=== PATIENT | female | born 1950 | race Caucasian/White ===

== ENCOUNTER → 2018-05-17 14:03 | Outpatient (CLI) | payer MEDICARE, BC, SELFPAY | PROVIDERS: Family Provider Internal Medicine; PCP Internal Medicine; Visit Provider Internal Medicine | DX: Z78.0 Asymptomatic menopausal state (principal); M85.80 Other specified disorders of bone density and structure, unspecified site; Z12.31 Encounter for screening mammogram for malignant neoplasm of breast | CPT/HCPCS: 77063; 77067; 77080 ==

== ENCOUNTER 2018-08-30 10:00 | Outpatient (RCR) | payer MEDICARE, BC, SELFPAY ==
--- OUTSIDE RECORDS SUMMARY | 2018-11-30 15:37 | XMS RPT_ITS | Continuity of Care Document ---
:1950 Author Organization [facility] Address [address] [place] [address] Phone Care Team Providers Name Role Phone Viji CHANDRA, Justyna Gutierres Unavailable Carlos Woodruff Unavailable Paras CHANDRA, Lesa Gutierres Unavailable Cleartree Unavailable Chacha Serna Unavailable Dr. Chato Jean Baptiste Unavailable HEAVEN Tran Unavailable Unavailable Unavailable Unavailable Problems Name Dates Details Abnormal laboratory test (R89.9, 796.4) Status: Active Abortions/Miscarriages Comments: 2 Status: Active Afib (I48.91, 427.31) Comments: reviewed with patient specialist's note now on Eliquis because trouble with warfarin regulation. had flare 7-13. medically treated. not cardio vert with history of CVA after cardiac ablation. still in afib but stable. 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 soto follow. WBS. thyrogen stimulated scan and tbs level 1-17.see once yearlyRAI 3-15, 4-14 thyrogen scan still residual, 1-16 stable Status: Active Carotid stenosis (I65.29, 433.10) Comments: 1-12 <50%, 12-13, 12-16 Status: Active Congestive heart failure (I50.9, 428.0) Comments: stable now told to weigh daily. knows if gain 4 pounds in a week call. Status: Active Controlled diabetes mellitus type II without complication (E11.9, 250.00) Comments: hga1c good.opthal exam - good see cardio for ekg Status: Active Deliveries (Parity) Comments: 3 Status: Active Depression (F32.9, 311) Comments: start with stroke, had issue with son on herion doing well. good on celexa with weight and arthymia backed to 20 mg and did well so will try 10 mg Status: Active Encounter for general adult medical examination with abnormal findings (Z00.01, V70.0) Comments: 08-09-16 [facility] 07[facility] Physical: colonoscopy 06-26,mammo BD 05-29, pap , immunizations are up to date, last eye exam was with Dr. Serna and included glaucoma screening, memory test= will get back to [facility] Status: Active GERD (gastroesophageal reflux disease) (K21.9, 530.81) Status: Active Glenohumeral arthritis, right (M19.011, 715.91) Comments: PTsome help. not as bad as was. recomend continue home exrecises at least 3 times a week but not do. Status: Active Hip pain, bilateral (M25.551, 719.45) Comments: really think related to back. had lumbar and hip xrays, bone scan and MRI of hip. DDD noted in back. not seem like PMR not on statins. see recommendations. Status: Active Hypercholesterolemia (E78.00, 272.0) Comments: reveiwed with patient recent tests and LDL 120 but breakdwon good. fax to [facility]. talka bout zetia at thispoint hold offstatin couple ones and pain in knees Status: Active Hypertension (I10, 401.9) Comments: stable Status: Active Hypocalcemia (E83.51, 275.41) Comments: postop and Dr. Soto is keeping her on the calcitroil Status: Active Hypothyroidism (E03.9, 244.9) Comments: Dr. 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 not good at direction not get lost. forget what go into room for. can follow recipes okay. sometimes forget conversations had day before. forgot how to get to religion ? [facility] Status: Active Nonsmoker (Z78.9, V49.89) Status: Active Obesity (E66.9, 278.00) Comments: now gain 10 pounds over last year. so told must get back off right away. she is eating bigger portions and snacking. she will cut out snacks and lower portions. cut out the sweets and carb snacks. get back to silver sneakers. will do weight check in 6 weeks Status: Active Obstructive sleep apnea, adult (G47.33, 327.23) Comments: in bipap...high titration. Status: Active Osteoarthritis, generalized (M15.9, 715.00) Comments: had in past right now tyelnol helping and told to water exercises. follow if worsen then xryas. Status: Active Osteoporosis, senile (M81.0, 733.01) Comments: 5-16 BD in hips at femoral neck osteoporosis. worsening. recheck 10-18 worsen left hip. been on fosamax not working.. was doing prolia. now insurance wont cover. had reclast. right now hips soem worse in left. all calcium and vit d are good and she wokrs with Dr. soto. Status: Active Other intervertebral disc degeneration, lumbar region (M51.36, 722.52) Comments: now having pain xray 8-17 DDD. did water therapy did over summer think help when in water. but finish and not continue home exercises. no nsaids right now tylenol arthritis prn. take tyelnol 2 tablets twice a day. osteobiflex otc. 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 estes stress test and cath 07-25. 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 Status: Active Medications Name Dates Details Calcitriol 0.25 MCG Oral Capsule 1 (one) Capsule bid for 0 days Quantity: 30 {Capsule} Refills: 0 Ordered:31-Jul-2018 Justyna Hallman MD, MD, Dana M Start : 31-Jul-2018 Active Comments:Dr. soto Calcium 600 600 MG Oral Tablet 2 (two) Tablet daily for 0 days Quantity: 90 {Tablet} Refills: 0 Ordered:19-Mar-2018 Justyna Hallman MD, MD, Dana M Start : 19-Mar-2018 Active CeleXA 10 MG Oral Tablet 1 tab Tablet qd for 0 days Quantity: 90 {Tablet} Refills: 3 Ordered:19-Mar-2018 Justyna Hallman MD, MD, Dana M Start : 19-Mar-2018 Active CENTRUM SILVER (Oral Tablet) 1 Tablet bid for 0 days Quantity: 60 {Tablet} Refills: 0 Ordered:17-Jun-2013 Justyna Hallman MD, MD, Dana M Start : 17-Jun-2013 Active Eliquis 5 MG Oral Tablet 1 (one) Tablet bid for 0 days Quantity: 60 {Tablet} Refills: 0 Ordered:31-Jul-2018 Justyna Hallman MD, MD, Dana M Start : 31-Jul-2018 Active Ergocalciferol 12350 UNIT Oral Capsule 1 Capsule q weekly for 0 days Quantity: 12 {Capsule} Refills: 3 Ordered:19-Mar-2018 Justyna Hallman MD, MD, Dana M Start : 19-Mar-2018 Active FERROUS SULFATE, 325 (65 Fe)MG (Oral Tablet Delayed Release) 1 qd (325 (65 Fe) MG) Active FLUTICASONE PROPIONATE, 50MCG/ACT (Nasal Suspension) 1 spray Suspension each nostril daily for 0 days Quantity: 3 {Box} Refills: 3 Ordered:25-Dec-2015 Cullen Batres MD Start : 25-Dec-2015 Active Lasix 20 MG Oral Tablet 1 (one) Tablet daily for 0 days Quantity: 90 {Tablet} Refills: 3 Ordered:14-Aug-2017 Justyna Hallman MD, MD, Dana M Start : 14-Aug-2017 Active Levothyroxine Sodium 125 MCG Oral Tablet 1 (one) Tablet qd for 0 days Quantity: 30 {Tablet} Refills: 0 Ordered:02-Jan-2017 Justyna Hallman MD, MD, Dana M Start : 02-Jan-2017 Active Lisinopril 20 MG Oral Tablet 1 Tablet qd for 0 days Quantity: 90 {Tablet} Refills: 3 Ordered:25-Dec-2017 Justyna Hallman MD, MD, Dana M Start : 25-Dec-2017 Active METOPROLOL SUCCINATE ER, 50MG (Oral Tablet Extended Release 24 Hour) 1 qd (50 MG) Active ONETOUCH TEST (In Vitro Strip) 1 Strip tid as directed for 0 days Quantity: 100 {Strip} Refills: 6 Ordered:18-Sep-2013 Justyna Hallman MD, MD, Dana M Start : 17-Jun-2013 Active Comments:DX: 250.00, patient uses ONETOUCH ULTRA RECLAST, 5MG/100ML (Intravenous Solution) uad Solution 5mg IV q yearly for 0 days Quantity: 100 {Milliliter} Refills: 0 Ordered:04-Jan-2016 Justyna Hallman MD, MD, Dana M Start : 04-Jan-2016 Active Zinc Aspartate 40 MG Oral Tablet 1 (one) Tablet Tablet in am for 0 days Quantity: 30 {Tablet} Refills: 5 Ordered:08-May-2017 HEAVEN Tarn Start : 03-Jan-2017 Active ACTION STRIPS (Miscellaneous) Misc as directed for 0 days Quantity: 25 {Misc} Refills: 6 Ordered:13-Mar-2007 Cari Ott Start : 13-Mar-2007 End : 29-Sep-2008 Inactive Comments:or equivalent strips for meter get ALPRAZOLAM, 0.5MG (Oral Tablet) 1 (one) Tablet Tablet q 6 hours prn for 0 days Quantity: 30 {Tablet} Refills: 0 Ordered:04-Jan-2016 HEAVEN Tran Start : 23-Oct-2014 End : 04-Jan-2016 Inactive AMBIEN, 10MG (Oral Tablet) Tablet QHS / HS prn for 0 days Quantity: 30 {Tablet} Refills: 1 Ordered:14-Oct-2009 HEAVEN Tran Start : 30-Jun-2008 Inactive ASPIRIN LOW DOSE, 81MG (Oral Tablet) 1 qd for 0 days Refills: 0 Ordered:25-Oct-2010 Estela Piedra LPN End : 25-Oct-2010 Inactive ATELVIA, 35MG (Oral Tablet Delayed Release) [address] q week for 0 days Quantity: 12 {Tablet_DR} Refills: 3 Ordered:14-Nov-2011 Yvonne Webb LPN Start : 12-Oct-2011 End : 14-Nov-2011 Inactive Comments:with water after breakfast, remain upright for 30min ATIVAN, 0.5MG (Oral Tablet) 1 Tablet every 6hours prn for 0 days Quantity: 20 {Tablet} Refills: 0 Ordered:19-Dec-2013 HEAVEN Tran Start : 10-Jul-2012 End : 19-Dec-2013 Inactive Comments:twenty BACTRIM DS, 800-160MG (Oral Tablet) 1 (one) Tablet bid for 7 days Quantity: 14 {Tablet} Refills: 0 Ordered:04-Jul-2014 Jailyn Connor CNP Start : 04-Jul-2014 End : 11-Jul-2014 Inactive BENADRYL ALLERGY, 25MG (Oral Capsule) 1 Capsule qhs for 30 days Quantity: 30 {Capsule} Refills: 3 Ordered:23-Oct-2014 HEAVEN Tran Start : 14-Nov-2011 End : 23-Oct-2014 Inactive BIAXIN XL PAC, 500MG (Oral Tablet Extended Release 24 Hour) 1 Tablet ER 24HR 2 a day for 0 days Quantity: 2 {Package(s)} Refills: 0 Ordered:29-Nov-2010 Estela Piedra LPN Start : 25-Oct-2010 End : 29-Nov-2010 Inactive BIAXIN XL, 500MG (Oral Tablet Extended Release 24 Hour) 2 (two) Tablet ER 24HR daily for 0 days Quantity: 20 {Tablet} Refills: 0 Ordered:17-Apr-2015 HEAVEN Tran Start : 22-Jan-2015 End : 17-Apr-2015 Inactive BIAXIN, 500MG (Oral Tablet) 2 (two) Tablet daily for 14 days Quantity: 28 {Tablet} Refills: 0 Ordered:12-Oct-2011 Ellajacobo OLIVAJailyn E Start : 12-Oct-2011 End : 26-Oct-2011 Inactive CLARITIN, 10MG (Oral Tablet) 1 qd for 0 days Refills: 0 Ordered:01-Dec-2008 Cari Ott End : 27-Mar-2008 Inactive COLACE, 100MG (Oral Capsule) 1 qd for 0 days Refills: 0 Ordered:04-Jan-2016 HEAVEN Tran End : 04-Jan-2016 Inactive COUMADIN, 2MG (Oral Tablet) 1 qd for 0 days Refills: 0 Ordered:19-Dec-2011 HEAVEN Tran End : 19-Dec-2011 Inactive COUMADIN, 5MG (Oral Tablet) UAD qd for 0 days Refills: 0 Ordered:19-Dec-2011 HEAVEN Tran End : 19-Dec-2011 Inactive DARVOCET-N 100, 100-650MG (Oral Tablet) 1-2 Tablet Q 6 HR PRN for 0 days Quantity: 60 {Tablet} Refills: 0 Ordered:17-Dec-2009 Salome Pike LPN Start : 16-Nov-2009 Inactive FLEXERIL, 10MG (Oral Tablet) 1 Tablet tid prn for 0 days Quantity: 20 {Tablet} Refills: 0 Ordered:13-Nov-2009 Salome Pike LPN Start : 14-Oct-2009 Inactive GLUCOMETER ELITE CLASSIC (Kit) Kit for 0 days Refills: 0 Ordered:13-Mar-2007 Cari Ott Start : 13-Mar-2007 End : 29-Sep-2008 Inactive Comments:or any equivalent meter Hydrocodone-Acetaminophen 5-325 MG Oral Tablet 1 (one) Tablet Tablet every 6hours prn severe neck pain for 0 days Quantity: 20 {Tablet} Refills: 0 Ordered:19-Mar-2018 HEAVEN Tran Start : 09-Feb-2016 End : 19-Mar-2018 Inactive Comments:twenty HYDROCODONE-ACETAMINOPHEN, 5-300MG (Oral Tablet) 1 (one) Tablet Tablet q 8 hours prn for 0 days Quantity: 30 {Tablet} Refills: 0 Ordered:04-Jan-2016 HEAVEN Tran Start : 23-Oct-2014 End : 04-Jan-2016 Inactive HYDRODIURIL, 100MG (PO Tab) 1 QD for 0 days Refills: 0 Ordered:01-Dec-2008 Cari Ott End : 30-Jun-2008 Inactive K-DUR, 20MEQ (Oral Tablet Extended Release) 1 Tablet ER QD for 0 days Quantity: 90 {Tablet_ER} Refills: 3 Ordered:14-Oct-2009 HEAVEN Tran Start : 12-Jan-2009 Inactive LAC-HYDRIN, 12% (External Lotion) uad Lotion to affected area(s) prn for 0 days Quantity: 1 {Tube} Refills: 3 Ordered:23-Oct-2014 HEAVEN Tran Start : 19-Dec-2013 End : 23-Oct-2014 Inactive Comments:140 gram tube LASIX, 20MG (Oral Tablet) 1 (one) Tablet BID for 0 days Quantity: 60 {Tablet} Refills: 6 Ordered:14-Oct-2009 HEAVEN Tran Start : 03-Aug-2009 Inactive LEVAQUIN, 500MG (Oral Tablet) 1 Tablet QD for 14 days Quantity: 14 {Tablet} Refills: 0 Ordered:08-Apr-2011 Viji CHANDRA, Justyna Oconnor MD, Justyna Gutierres Start : 08-Apr-2011 End : 22-Apr-2011 Inactive LIPITOR, 80MG (Oral Tablet) Tablet QD for 0 days Quantity: 90 {Tablet} Refills: 3 Ordered:30-Dec-2008 HEAVEN Tran Start : 30-Dec-2008 Inactive Comments:failed simvastatin muscle aches LORTAB, 7.5-500MG/15ML (Oral Elixir) 15 ml q 4 hrs prn for 0 days Refills: 0 Ordered:17-Dec-2009 Salome Pike LPNInactive MEDROL (ANGIE), 4MG (Oral Tablet) 1 (one) Tablet TAD for 0 days Quantity: 1 {Package} Refills: 0 Ordered:01-Aug-2014 HEAVEN Tran Start : 04-Jul-2014 End : 01-Aug-2014 Inactive Comments:with food METOPROLOL TARTRATE, 25MG (Oral Tablet) 1/2 Tablet bid for 0 days Refills: 0 Ordered:03-Apr-2009 HEAVEN Tran Start : 03-Apr-2009 Inactive Comments:made pulse too low Dr. Mcnair d/c'd NASONEX, 50MCG/ACT (Nasal Suspension) 1spray each nostril Suspension BID for 0 days Quantity: 3 {Suspension} Refills: 3 Ordered:03-Aug-2009 HEAVEN Tran Start : 03-Aug-2009 Inactive NIACIN ER, 500MG (Oral Capsule Extended Release) 1 Capsule ER 2 a day for 0 days Quantity: 180 {Capsule_ER} Refills: 3 Ordered:25-Dec-2012 HEAVEN Tran Start : 22-Nov-2012 End : 25-Dec-2012 Inactive NIACIN ER, 500MG (Oral Capsule Extended Release) 1 Capsule ER 2 a day for 0 days Quantity: 180 {Capsule_ER} Refills: 3 Ordered:25-Dec-2012 HEAVEN Tran Start : 22-Nov-2012 End : 25-Dec-2012 Inactive Nitrofurantoin Monohyd Macro 100 MG Oral Capsule 1 (one) Capsule bid for 0 days Quantity: 14 {Capsule} Refills: 0 Ordered:23-Nov-2017 HEAVEN Tran Start : 21-Nov-2017 End : 23-Nov-2017 Inactive PATANOL, 0.1% (Ophthalmic Solution) 1 Solution bid each eye one drop for 0 days Quantity: 1 {Solution} Refills: 0 Ordered:04-Jan-2016 HEAVEN Tran Start : 22-Nov-2012 End : 04-Jan-2016 Inactive PEPCID, 20MG (Oral Tablet) Tablet BID for 0 days Quantity: 60 {Tablet} Refills: 0 Ordered:14-Oct-2009 HEAVEN Tran Start : 26-Aug-2009 Inactive PRAVASTATIN SODIUM, 40MG (Oral Tablet) 1 Tablet daily for 0 days Quantity: 30 {Tablet} Refills: 5 Ordered:14-Feb-2012 HEAVEN Tran Start : 14-Feb-2012 End : 14-Feb-2012 Inactive Comments:aches and pains PREDNISONE, 20MG (Oral Tablet) 1 Tablet uad for 0 days Refills: 0 Ordered:28-Jul-2011 HEAVEN Tran Start : 08-Apr-2011 End : 28-Jul-2011 Inactive Comments:2 a d for 5 d, 1 a d for 5d, 1/2 a d for 5 d PRILOSEC OTC, 20MG (Oral Tablet Delayed Release) [address] qd for 0 days Quantity: 30 {Tablet_DR} Refills: 6 Ordered:14-Oct-2009 HEAVEN Tran Start : 27-Apr-2009 Inactive PROLIA, 60MG/ML (Subcutaneous Solution) 1 (one) Solution Solution q 6 months SC for 0 days Quantity: 2 {Pre-filled_Pen_Syringe} Refills: 0 Ordered:04-Jan-2016 HEAVEN Tran Start : 17-Apr-2015 End : 04-Jan-2016 Inactive PROVENTIL HFA, 108 (90 Base)MCG/ACT (Inhalation Aerosol Solution) 2 (two) Puff(s) tid for 0 days Quantity: 1 {Aerosol_Soln} Refills: 0 Ordered:14-Nov-2011 Long TOXICOLOGIST, Yvonne L Start : 08-Apr-2011 End : 14-Nov-2011 Inactive RHINOCORT AQUA, 32MCG/ACT (Nasal Suspension) 1 spray each nostril Suspension QD for 0 days Quantity: 3 {Suspension} Refills: 3 Ordered:03-Apr-2009 Estela Piedra LPN Start : 03-Apr-2009 End : 29-Jul-2009 Inactive Skelaxin 800 MG Oral Tablet 1 (one) Tablet Tablet tid prn for 0 days Quantity: 20 {Tablet} Refills: 0 Ordered:02-Jan-2017 HEAVEN Tran Start : 09-Feb-2016 End : 02-Jan-2017 Inactive TOPICORT LP, 0.05% (External Cream) Cream bid for 0 days Quantity: 1 {Cream} Refills: 1 Ordered:20-Dec-2007 HEAVEN Tran Start : 20-Dec-2007 End : 03-Apr-2009 Inactive TYLENOL, 325MG (Oral Tablet) 1 (one) Tablet Tablet q6hrs prn for 0 days Quantity: 1 {Tablet} Refills: 0 Ordered:01-Aug-2014 HEAVEN Tran Start : 30-Jun-2014 End : 01-Aug-2014 Inactive VICODIN, 5-500MG (Oral Tablet) 1-2 Tablet q6hrs for 0 days Quantity: 30 {Tablet} Refills: 0 Ordered:14-Feb-2012 HEAVEN Tran Start : 09-Jan-2012 End : 14-Feb-2012 Inactive VICODIN, 5-500MG (Oral Tablet) 1 (one) Tablet QID/PRN for 0 days Quantity: 30 {Tablet} Refills: 0 Ordered:16-Aug-2012 HEAVEN Tran Start : 17-May-2012 End : 16-Aug-2012 Inactive Xarelto 20 MG Oral Tablet 1 Tablet qd for 0 days Quantity: 30 {Tablet} Refills: 0 Ordered:23-Nov-2017 HEAVEN Tran Start : 19-Dec-2011 End : 23-Nov-2017 Inactive Comments:Dr. Tabby ESCALERA, 10MG (Oral Tablet) 1 (one) Tablet Tablet qd for 0 days Quantity: 30 {Tablet} Refills: 5 Ordered:04-Jan-2016 HEAVEN Tran Start : 28-Oct-2014 End : 04-Jan-2016 Inactive ALENDRONATE SODIUM, 35MG (Oral Tablet) 1 (one) Tablet weekly for 90 days Quantity: 12 {Tablet} Refills: 3 Ordered:25-Mar-2014 Viji CHANDRA, Justyna Oconnor MD, Justyna Gutierres Start : 25-Mar-2014 End : 25-Mar-2014 Discontinued BYETTA 10 MCG PEN, 10MCG/0.04ML (Subcutaneous Solution) 1 (one) Solution BID for 0 days Quantity: 60 {Solution} Refills: 4 Ordered:13-Mar-2007 Cari Ott Start : 13-Mar-2007 End : 20-Dec-2007 Discontinued BYETTA 5 MCG PEN, 5MCG/0.02ML (Subcutaneous Solution) Solution BID for 0 days Refills: 0 Ordered:01-Dec-2008 Cari Ott Start : 01-Mar-2007 End : 13-Mar-2007 Discontinued COUMADIN, 1MG (Oral Tablet) uad for 0 days Refills: 0 Ordered:01-Dec-2008 Cari Ott End : 20-Dec-2007 Discontinued CRESTOR, 40MG (Oral Tablet) 1 Tablet qhs / HS for 0 days Refills: 0 Ordered:01-Dec-2008 Cari Ott Start : 06-Sep-2006 End : 19-Jun-2007 Discontinued FOSAMAX, 35MG (Oral Tablet) 1 Tablet q week for 0 days Quantity: 12 {Tablet} Refills: 3 Ordered:10-Oct-2013 HEAVEN Tran Start : 10-Oct-2013 End : 10-Oct-2013 Discontinued Comments:This order discontinued per [facility]. FOSAMAX, 35MG (Oral Tablet) 1 q week (35 MG) Start : 10-Oct-2013 End : 10-Oct-2013 Discontinued Comments:This order discontinued per [facility]. HYDROCHLOROTHIAZIDE, 25MG (Oral Tablet) 1 Tablet QD for 0 days Refills: 0 Ordered:03-Aug-2009 Justyna Hallman MD, MD, Dana M Start : 03-Aug-2009 End : 03-Aug-2009 Discontinued INTRAVENOUS INFUSION SET VENTD (Miscellaneous) 1 for 0 days Refills: 0 Ordered:25-Aug-2006 Cari Ott Start : 25-Aug-2006 End : 20-Dec-2007 Discontinued K-DUR, 20MEQ (Oral Tablet Extended Release) Tablet ER QD with lasix for 0 days Quantity: 30 {Tablet_ER} Refills: 3 Ordered:20-Sep-2007 Cari Ott Start : 20-Sep-2007 End : 20-Dec-2007 Discontinued LASIX, 40MG (Oral Tablet) Tablet QD for 0 days Quantity: 30 {Tablet} Refills: 0 Ordered:20-Sep-2007 Cari Ott Start : 20-Sep-2007 End : 20-Dec-2007 Discontinued Comments:in place of hydroduirel LOPRESSOR HCT, 50-25MG (Oral Tablet) for 0 days Refills: 0 Ordered:03-Apr-2009 Justyna Hallman MD, MD, Dana M End : 20-Dec-2007 Discontinued MULTIVITAMIN (Oral Liquid) for 0 days Refills: 0 Ordered:01-Dec-2008 Cari Ott End : 20-Dec-2007 Discontinued NEXIUM, 40MG (Oral Capsule Delayed Release) [address] Daily for 0 days Refills: 0 Ordered:26-Aug-2009 Justyna Hallman MD, MD, Dana M Start : 26-Aug-2009 End : 26-Aug-2009 Discontinued NIASPAN, 500MG (Oral Tablet Extended Release) 2 (two) Tablet ER qhs for 0 days Quantity: 180 {Tablet} Refills: 3 Ordered:01-Aug-2014 Viji CHANDRA, Justyna Bhardwaj MD Start : 01-Aug-2014 End : 01-Aug-2014 Discontinued PREVACID, 30MG (Oral Capsule Delayed Release) [address] qd for 0 days Quantity: 90 {Capsule_DR} Refills: 3 Ordered:06-Sep-2006 Tru Cari Start : 06-Sep-2006 End : 13-Sep-2006 Discontinued ROCEPHIN, 2GM (Intravenous Solution Reconstituted) For Solution for 0 days Refills: 0 Ordered:25-Aug-2006 Tru Cari Start : 25-Aug-2006 End : 19-Jun-2007 Discontinued Comments:lot # [id number] Exp [id number] SIMVASTATIN, 80MG (Oral Tablet) Tablet QD for 0 days Refills: 0 Ordered:30-Dec-2008 Justyna Hallman MD, MD, Dana M Start : 29-Sep-2008 End : 30-Dec-2008 Discontinued VYTORIN, 10-40MG (Oral Tablet) 1 (one) Tablet QD for 0 days Quantity: 90 {Tablet} Refills: 3 Ordered:29-Sep-2008 Tru Cari Start : 29-Sep-2008 End : 29-Sep-2008 Discontinued ZYRTEC, 10MG (Oral Tablet) 1 Tablet qd for 0 days Quantity: 90 {Tablet} Refills: 3 Ordered:06-Sep-2006 Cari Ott Start : 06-Sep-2006 End : 27-Nov-2006 Discontinued Allergies and Adverse Reactions Name Dates Details Cipro (Allergy) Status: Active Comments: cipro Keflex *CEPHALOSPORINS* (Allergy) Status: Active Lipitor (Allergy) Status: Active Comments: muscle aches Metal (Allergy) Status: Active NexIUM *ULCER DRUGS* (Allergy) Status: Active Seafood (Allergy) Status: Active Wool (Allergy) Status: Active Past Medical History Name Dates Details abnl mammo and ultrasound- send to [facility] for surgical opinion- pt agreeable Comments: reveiwed biopsy and neg Status: Inactive as of 22-Aug-2006 Abnormal bone xray (R93.7, 793.7) Status: Resolved as of 31-Jul-2018 Abnormal radionuclide bone scan (R94.8, 794.9) Status: Resolved as of 31-Jul-2018 Abnormal TSH (R79.89, 794.5) Comments: stable had seen byrd. run 0.26-.30 so will follow. not had recehecked since 09-24 and now signs and symptoms Status: Inactive as of 04-Jan-2016 Acute exacerbation of COPD with asthma (J44.1, 493.22) Status: Resolved as of 30-Dec-2008 Acute pansinusitis (J01.40, 461.8) Status: Inactive as of 04-Jan-2016 Acute sinusitis, unspecified (J01.90, 461.9) Status: Inactive as of 22-Nov-2012 Allergic rhinitis (J30.9, 477.9) Comments: having signs and symptoms now. on zyretic. not taking nasal spray regularly Status: Inactive as of 14-Oct-2009 Arthritis (M19.90, 716.90) Status: Inactive as of 19-Dec-2013 Backache (M54.9, 724.5) Status: Inactive as of 22-Nov-2012 BMI 34.0-34.9,adult (Z68.34, V85.34) Status: Resolved as of 19-Mar-2018 BMI 35.0-35.9,adult (Z68.35, V85.35) Comments: 35.4 Status: Resolved as of 19-Mar-2018 BMI 36.0-36.9,adult (Z68.36, V85.36) Comments: 36.45 Status: Resolved as of 19-Mar-2018 BMI 37.0-37.9, adult (Z68.37, V85.37) Status: Resolved as of 31-Jul-2018 Breast cancer screening (Z12.39, V76.10) Status: Inactive as of 04-Jan-2016 Bronchitis (J40, 490) Comments: is getting better will finish atb and steriod. doing inhaler at home Status: Inactive as of 22-Nov-2012 Bronchitis, acute (J20.9, 466.0) Status: Inactive as of 22-Nov-2012 Cellulitis (L03.90, 682.9) Comments: To Endoscopy for daily IV vanc x 4 days with some improvementfacial swelling after ear infection Status: Inactive as of 01-Aug-2014 Cellulitis (L03.90, 682.9) Comments: continue ATB Status: Resolved as of 27-Dec-2006 Cerebrovascular disease, unspecified (I67.9, 437.9) Status: Inactive as of 15-Mar-2013 Cough (R05, 786.2) Status: Inactive as of 22-Nov-2012 Elevated LFTs (R94.5, 790.6) Status: Inactive as of 17-Jun-2013 Encounter for gynecological examination without abnormal finding (Z01.419, V72.31) Comments: 06-26 colonscopy Status: Resolved as of 19-Mar-2018 Encounter for hepatitis C virus screening test for high risk patient (Z11.59, V73.89) Status: Resolved as of 31-Jul-2018 Eustachian tube dysfunction (H69.80, 381.81) Status: Inactive as of 16-Aug-2012 Face pain (R51, 784.0) Status: Inactive as of 01-Aug-2014 Fatigue (R53.83, 780.79) Status: Inactive as of 09-Aug-2016 Fever (R50.9, 780.60) Status: Inactive as of 01-Aug-2014 Glucose intolerance (no malabsorption) (E74.39, 271.3) Status: Inactive as of 14-Oct-2009 Headache (R51, 784.0) Status: Inactive as of 16-Aug-2012 Heart disease, unspecified (I51.9, 429.9) Status: Inactive as of 22-Nov-2012 Hypercalcemia (E83.52, 275.42) Comments: good now pth normal vit d good Status: Inactive as of 16-Aug-2012 Hypokalemia (E87.6, 276.8) Comments: add k recheck 2 weeks Status: Inactive as of 14-Oct-2009 Leukopenia (Renamed from Decreased leukocytes) (D72.819, 288.50) Status: Inactive as of 19-Dec-2013 Low back pain (M54.5, 724.2) Status: Resolved as of 14-Aug-2017 Morbid obesity (E66.01, 278.01) Comments: talk about get right back on diet. eating out more Status: Inactive as of 16-Aug-2012 Neck pain (M54.2, 723.1) Comments: xray show C%-6 narrow. had PT help and if worsen then mri muscle relaxant help the straighten spasm. exercises given Status: Inactive as of 09-Aug-2016 Need for prophylactic vaccination and inoculation against influenza (Renamed from Need for immunization against influenza) (Z23, V04.81) Status: Resolved as of 14-Aug-2017 NEED FOR PROPHYLACTIC VACCINATION AND INOCULATION AGAINST INFLUENZA (V04.81) (Renamed from Need for prophylactic vaccination and inoculation against influenza) (Z23, V04.81) Status: Inactive as of 02-Jan-2017 Need for Tdap vaccination (Renamed from Need for dtwwbjhbwb-cjsivuu-cpipcnlgl (Tdap) vaccine, adult/adolescent) (Z23, V06.1) Status: Inactive as of 09-Aug-2016 Need for vaccination against Streptococcus pneumoniae (Z23, V03.82) Status: Inactive as of 04-Jan-2016 Osteopenia (M85.80, 733.90) Comments: osteopenia had bone density on 09-20-11 compared to 05-20, loss of hip 16.1%. it would not cover atelvia so doing fosamax Status: Inactive as of 25-Mar-2014 Osteoporosis (M81.0, 733.00) Comments: reveiwed with patient recent tests and she has litle lisset but about same prolia not covered. continue reclast. calciu with vit d and walking Status: Resolved as of 03-Jan-2017 Other atopic dermatitis and related conditions (L20.89, 691.8) Status: Resolved as of 14-Oct-2009 Pain in limb (M79.609, 729.5) Comments: rt leg neg DVT, resolved after stopping pravastatin.. will retry pravastatin. cpk good Status: Inactive as of 16-Aug-2012 Paresthesia (R20.2, 782.0) Comments: last seconds in left hand most ? from old stroke ? cts not bad enough want ncs if worsen then wlldo consider wrist splint Status: Inactive as of 09-Feb-2016 Pneumococcal vaccination given (Z23, V06.6) Status: Resolved as of 19-Mar-2018 Postmenopausal (Renamed from Postmenopausal status) (Z78.0, V49.81) Status: Resolved as of 31-Jul-2018 Pre-operative examination (Z01.818, V72.84) Comments: pt at moderate moderate risk talk with pt about. but risk of doing nothing worse with her extreme obesity Status: Inactive as of 14-Oct-2009 pulse ox in office 96% Status: Inactive as of 14-Oct-2009 Rash (R21, 782.1) Comments: now allergic. stop nexium add pepcidj wait on prednsione if can Status: Inactive as of 14-Oct-2009 Right shoulder pain (M25.511, 719.41) Comments: think rotator cuff and in trapezius Status: Inactive as of 09-Aug-2016 Screening mammogram, encounter for (Z12.31, V76.12) Status: Resolved as of 19-Mar-2018 Sinusitis, chronic (J32.9, 473.9) Status: Inactive as of 19-Dec-2013 Sleep disorder (G47.9, 780.50) Comments: use to third shift Status: Resolved as of 30-Dec-2008 SOB (R06.02, 786.05) Comments: recetn issue cath and heart good ct chest good. think probably related to thyriod if not this then [place] for PFTs Status: Inactive as of 23-Oct-2014 Thyroid nodule (E04.1, 241.0) Comments: saw surgeon who wanted thyriod left lobectomy Status: Inactive as of 04-Jan-2016 Uncontrolled type II diabetes mellitus (E11.65, 250.02) Comments: stable good Status: Inactive as of 14-Oct-2009 Unspecified Diagnosis Status: Inactive as of 22-Nov-2012 Unspecified Diagnosis Status: Inactive as of 22-Nov-2012 Unspecified Diagnosis Status: Inactive as of 22-Nov-2012 Unspecified visual disturbance (H53.9, 368.9) Status: Inactive as of 19-Dec-2013 UTI (urinary tract infection) (N39.0, 599.0) Status: Resolved as of 19-Mar-2018 Vertigo (R42, 780.4) Comments: on flonase and zyrtec Status: Inactive as of 22-Nov-2012 Wheezing (R06.2, 786.07) Status: Inactive as of 22-Nov-2012 Procedures Procedure Dates Details Atrial Defect repair Completed Comments: 1960 Section Completed Comments: 3 D&C Completed gastric bypass Dr mel Nunes 08-19 Completed Thyroidectomy; Total Completed Comments: Dr. Crain 09-30-2014 Multi focal papillary thyroid cancer referred to endocrinologistDr. Gabriel Soto nail feeder will be handling the radioactive iodine treatment in [place] Torn Meniscus Completed Comments: repair right knee Dr. Negron Tubal Ligation Completed Date Value Details 17-May-2018 Dexa Bone Density Study Result: Comments: See Note; NOTES: [facility] Imaging Services [address] [place] [address] Dexa Bone Density Study MR#: [id number] Acct: [id number] Name: JODI MOMIN Rep #: [id number] : 1950 F 68 From: Aaron Shrestha MD PCP: Justyna Hallman MD Status: REG CLI Study: Dexa Bone Density Study Date of Exam: 05/17/18 Exam# [id number] Ordering Dr: Ayde Rodriguez DO STUDY: DUAL ENERGY X-RAY ABSORPTIOMETRY / DXA REASON FOR EXAM: Female, 68 years old. Menopause. Loss of height. TECHNIQUE: Bone Mineral Density (BMD) measurements of lumbar spine and bilateral hips were obta ined. COMPARISON: Comparison is made with prior study dated February 03, 2016. FINDINGS: Lumbar Spine (L1-L4): g/cm2 (0.992) / T-score (-1.4) / Z-score (0.2) Findings a re suggestive of osteopenia with a moderate fracture risk. Left Femur Total: g/cm2 (0.851) / T-score (-1.2) / Z-score (0.1) Left Femoral Neck: g/cm2 (0.706) / T-score (-2.4) / Z-score (-0.8) Right Femu r Total: g/cm2 (0.801) / T-score (-1.6) / Z-score (-0.3) Right Femoral Neck: g/cm2 (0.745) / T-score (-2.1) / Z-score (-0.5) The T-Scores on the most recent prior examination were: Lumbar Spine (L1-L4 ): There has been improvement of bone density since the previous examination. Left Femur Total: which represents a worsening of 5.7%. Right Femur Total: which represents a worsening of 0.4%. BD/Dexa Bone Density Study IMPRESSION: The patient is considered osteopenic as outlined below according to World Stanton Organization (WHO) criteria with a m oderate fracture risk. There has been worsening of bone density since the previous examination. Reference Information: The T-score is the number of standard deviati ons above or below the standard which is normal for young adults at their peak bone mineral density. The World Health Organization (WHO) interprets the T- scores as follows: Above -1 Normal bone density Between -1 and -2.5 Osteopenia Equal to / or below -2.5 Osteoporosis As a practical clinical guideline, osteopenia may be graded as follows: Mild -1 through -1.5 Moderate -1.6 through -2.0 Severe -2.1 through -2.4 The Z-score is the number of standard deviations above or below age-matched controls. A Z-score of less than -1.5 would be considered abnormal. References: 1. NIH Osteoporosis and Relate d Bone Diseases http://www.osteo.org 2. International Society for Clinical Densitometry http://www.iscd.org 3. National Osteoporosis Foundation http://www.nof.org Electronically Signed: Aaron stewart MD at 11:21 EDT Tel [phone], Service support , CC: Justyna Hallman MD; Ayde Rodriguez DO Electrical Line Worker: Signed 17-May-2018 SCREENING MAMM (CAD), BILAT Result: Comments: See Note; NOTES: [facility] Imaging Services [address] [place] [address] SCREENING MAMM (CAD), BILAT MR#: [id number] Acct: [id number] Name: LILIANEJODI L Rep # : [id number] : 1950 F 68 From: Aaron Shrestha MD PCP: Justyna Hallman MD Status: REG CLI Study: SCREENING MAMM (CAD), BILAT Date of Exam: 05/17/18 Exam# [id number] Ordering Dr: Ayde Rodriguez DO MAMMOGRAPHY - BILATERAL SCREENING REASON FOR EXAM: Female, 68 years old. Routine annual screening examination. PERTINENT HISTORY: Non-contributory. Remote right stereotactic breast biopsy. TECHNIQUE : Digital bilateral breast chayo (3D mammographic acquisition) in the CC and MLO projections. 2-D mediolateral oblique (MLO) and craniocaudad (CC) views of both breasts were obtained. CAD: Full Field Dig ital Mammography with Computer Added Detection was performed. COMPARISON: Comparison is made with prior study dated May 16, 2017 and May 12, 2016. FINDING S: Breast Composition: There are scattered areas of fibroglandular density. There are no dominant masses or suspicious calcifications. Stable benign-appearing bilateral axillary lymph nodes. A stereota ctic tissue clip marker is seen in the upper lateral portion of the right breast. No other significant abnormalities are identified. There has been no significant change since the prior study. BI/SCREENING MAMM (CAD), BILAT IMPRESSION: Stable bilateral screening mammogram. Yearly follow-up mammogram recommended. (A) ASSESSMENT CATEGORY: BIRADS Category 2: Benign. A letter regarding these results will be sent to the patient by the facility within 30 days. Approximately 10% of breast cancers are not detect ed by mammography. A normal mammogram should not delay biopsy of a clinically suspicious abnormality. [id number] Electronically Signed: Aaron Shrestha MD at 15:36 EDT Tel [phone], Servi ce support , CC: Justyna Hallman MD; Ayde Rodriguez DO Electrical Line Worker: Signed 25-Apr-2018 Cardiology Visit Report Result: Comments: See Note; NOTES: [facility] [address] [place] [address] OFFICE VISIT Date of Service: 04/24/18 MR#: [id number] Acct: [id number] Name: JODI MOMIN Rep #: [id number] : 1950 Provider: RIVER Mendoza Age/Sex: 68/F Location: [facility] Status: Signed HPI HPI Details: JODI MOMIN, is a 68 F who presents to the office today for a cardia vas cular outpatient follow-up. She has a history of atrial fibrillation status post ablation at [facility] in 2005, atrial septal defect, and CVA in 2005. Pt. denies chest, arm, jaw, or neck discomfort. H er exercise tolerance is stable. Pt. denies symptoms of palpitations, lightheadedness, dizziness, near syncope, or syncopal episodes. Pt. denies edema or claudication issues. Pt. denies orthopnea, PND, fever, chills, blood in urine, blood in stool, or myalgia. She states getting fatigue easily, but this is not new. She continues get SOB on exertion such as going up and down steps. Her SOB improves wit h rest and recovers quickly. Intake Vital Signs04/24/18 Height 4 ft 9 in 04/24/18 Weight: 162 lb 04/24/18 Body Mass Index (BMI) 35.0 04/24/18 Blood Pressure 98/46 04/24/18 Blood Pressure Location Lt br achial Intake Visit Reasons: overdue for OV Claims Supervisor Required: No Accompanied by: Is patient in pain?: No Allergies cephalexin monohydrate [From Keflex] Allergy (Intermediate, Verified 11:20) Hives ciprofloxacin [From Cipro] Allergy (Intermediate, Verified 04/24/18 11:20) Hives ciprofloxacin HCl [From Cipro] Allergy (Intermediate, Verified 04/24/18 11:20) Hives atorvastatin calc ium [From Lipitor] Adverse Reaction (Intermediate, Verified 04/24/18 11:20) Pain in joints rosuvastatin calcium [From Crestor] Adverse Reaction (Verified 04/24/18 11:20) Pain in joints some metals Aller gy (Intermediate, Uncoded 06/22/16 22:05) Other wool Allergy (Intermediate, Uncoded 06/22/16 22:05) Hives Medications Cetirizine HCl [Zyrtec] 10 mg PO DAILY 05/16/14 [History Confirmed 04/24/18] Nakia lopram [Celexa] 40 mg PO QHS 05/16/14 [History Confirmed 04/24/18] Docusate Sodium [Colace] 100 mg PO DAILY PRN PRN 05/16/14 [History Confirmed 04/24/18] Ergocalciferol [Vitamin D] 50,000 unit PO QMONTH 05/16/14 [History Confirmed 04/24/18] Ferrous Sulfate 325 mg PO DAILY@0800 05/16/14 [History Confirmed 04/24/18] Lisinopril [Zestril] 20 mg PO QHS 05/16/14 [History Confirmed 04/24/18] Multivitamins,Th erapeutic [Multivitamin] 1 tab PO BID 05/16/14 [History Confirmed 04/24/18] Zinc 50 mg PO DAILY 01/11/17 [History Confirmed 04/24/18] levothyroxine 125 mcg tablet 125 mcg PO QDAY tab 10/04/17 [History C onfirmed 04/24/18] furosemide 20 mg tablet 20 mg PO QDAY 10/09/17 [History Confirmed 04/24/18] calcitriol 0.25 mcg capsule 0.25 mcg PO BID cap 10/10/17 [History Confirmed 04/24/18] calcium carbonate 600 mg calcium (1,500 mg) tablet 600 mg PO BID tab 10/10/17 [History Confirmed 04/24/18] metoprolol succinate ER 50 mg tablet,extended release 24 hr 50 mg PO QDAY #90 tab 02/27/18 [Rx Confirmed 04/24/18] a pixaban 5 mg tablet 5 mg PO BID tab 04/24/18 [History Confirmed 04/24/18] fluticasone 50 mcg/actuation nasal spray,suspension 1 spray INTRANASAL DAILY PRN 04/24/18 [History Confirmed 04/24/18] Ejectio n fraction %: 50 to 54 PFSH Medical History Ostium secundum atrial septal defect (Chronic) History of stroke (Chronic) Obesity (Resolved) Hyperlipidemia (Chronic) custodial current use of anticoagulan t (Chronic) Atrial fibrillation (Chronic) Surgical History History of left heart catheterization (Chronic) History of thyroidectomy, total (Chronic) History of atrial septal defect repair (Resolved) History of section (Resolved) History of lateral meniscus repair of right knee (Resolved) Family History Mother Myocardial infarction CAD (coronary ar wilbur disease) Father , age 72 Hypertension Social History Smoking Status: Former smoker alcohol intake: current alcohol intake frequency: holidays/special occasions only caffeine: Yes T ype: coffee Number of servings: 3, tea Number of servings: 2, carbonated beverages Number of servings: 1 ROS Const Const: Positive for fatigue; negative for weakness, body ache, fever(s) or chills ENT ENT: Negative for dizziness Cardio Chest Pain: No Palpitations: No Edema: None Muscle aches with walking: None Resp Respiratory: Positive for SOB with activity; negative for SOB at rest, SOB orthopn ea\SOB lying down or paroxysmal nocturnal dyspnea GI GI: Negative nausea, black,tarry stools, bright, red blood in stools or vomiting blood/hematemesis : Negative for hematuria or frequent nighttim e urination/ nocturia Musc Musc: Negative for muscle aches/ myalgia Skin Skin: Negative non-healing lesions or rash Neuro Neuro: Negative for weakness, dizziness, lightheadedness, near syncope, syncope or orthostatic symptoms Endo Endo: Positive for fatigue Allergy Allergy/Immunology: Negative for rash Cardiology Exam Const Appearance: cooperative, healthy appearing, well developed, well groomed and no acute distress Nutritional Appearance: well nourished and average body habitus Orientation: alert, awake and oriented x3 Head Head: normal to inspection, normocephalic and atraumatic Ears: hearing g rossly normal bilaterally and external ears normal Nose: external nose normal, nasal mucous membranes and turbinates normal, nares normal, septum normal, no nasal discharge Face and Sinus: face symmetri c Mouth: oral mucosae normal, tongue normal, oropharynx normal and moist mucous membranes Teeth and gingiva: dentition normal Throat: posterior oropharynx normal, tonsils normal and uvula midline Eyes G eneral: appearance normal, both eyes and all related structures Eyelids: eyelids normal Conjunctivae: conjunctivae normal Pupils: PERRL, normal by confrontation and accommodation normal EOM: EOM intact bilaterally Neck Neck: normal visual inspection, trachea midline and no JVD JVD: +5 Carotids: normal carotid upstroke and bounding pulses Chest Chest inspection: normal inspection of the chest, symmetri c chest movement and normal respiratory effort Auscultation: Bilateral: Clear to Auscultation Cardio Palpation: normal PMI Rhythm: irregular rhythm Heart sounds: S1 normal and S2 normal; negative rub, g allop or murmur GI GI: normal to inspection, soft, no hepatosplenomegaly and bowel sounds present Neuro General: alert, awake, oriented x3, no focal sensory deficit, gait normal and moves all extremitie s Skin Skin: no rashes or lesions noted Extremities Pulses: Normal: Right Femoral Pulse, Left Femoral Pulse, Right Dorsalis Pedis Pulse, Left Dorsalis Pedis Pulse, Right Posterior Tibial Pulse, Left Pos terior Tibial Pulse, Right Radial Pulse, Left Radial Pulse Lower Extremity Edema: None: Bilateral Musculoskel Musculoskeletal: No joint tenderness Psych Psychological: normal affect Supplemental Info 24 hour Holter monitor from June 2017 showed average heart rate of 79 bpm in atrial fibrillation, minimum heart rate of 34 bpm in atrial fibrillation, maximum heart rate of 158 bpm in atrial fibrilla tion, ventricular ectopy comprising of 0.2%, longest R to R interval of 2.6 seconds, no ventricular tachycardia, 99.8% of scan in atrial fibrillation, and patient did not keep diary. 24 [facility] 2015 showed atrial fibrillation, average heart rate of 100 bpm, minimum heart rate of 43 beats minute, and maximum heart rate of 185 bpm, longest R to R interval was 1.8 seconds and patie nt was in atrial fibrillation 99.4% total time. Heart catheterization from May 2014 showed left main with no significant stenosis, LCx with no significant stenosis, LAD with no significant stenos is, RCA with no high-grade stenosis, and ejection fraction of 50 55% with no wall motion abnormalities. Stress test from April 2014 showed mild ischemia and preserved ejection fraction. Echocardiogra m from March 2013 showed normal LV size, estimated ejection fraction 50%, mild mitral valve insufficiency, mild tricuspid valve insufficiency and an RVSP of 22 mmHg. Assessment AND Plan 1. Persistent a trial fibrillation I48.1 Plan - SAI Medel Her Holter monitor in 2017 showed atrial fibrillation with an average heart rate of 79 bpm. Her heart rate remains well controlled today. She will conrado nue metoprolol and Eliquis. We will continue to monitor. 2. Dyspnea on exertion R06.09 Plan - SAI Medel Patient does continue to have dyspnea on exertion. This has not worsened and tends to rec over quickly. At this time we will continue to monitor. 3. custodial current use of anticoagulant Z79.01 Plan - SAI Medel She will continue with factor Xa inhibitor. Plan Detail Additional Com ments - SAI Medel Discussed the above patient with Dr. Mcnair, he agrees with the plan of care. Thank you for allowing us to participate in the patients plan of care, if you have any questions p garth do not hesitate to call. This note was generated using a voice recognition system and there may be incorrect words, spelling or punctuation that were not noted when reviewing the office note valentin olivarez. 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 [place] [address] OFFICE VISIT Date of Service: 10/10/17 MR#: [id number] Acct: [id number] Name: JDOI MOMIN Rep #: [id number] : 1950 Provider: Yosi Mcnair MD Age/Sex: 67/F Location: [facility] Status: Signed HPI 3 M FU (we moved from 09-26-17): Chief Complaint: Follow-up visit. Details: JODI Duarte, is a 67 F who presents to the office today for a follow-up visit. She is a lady with a history of atrial fibrillation chronic persistent history of atrial septal defect and a CVA who returns for foll ow-up visit. She denies any chest pain or shortness of breath or paroxysmal nocturnal dyspnea or pedal edema. She has not had any dizziness or diaphoresis or near syncope or syncope. She remains on her anticoagulation. In addition she has not had any neurological events either. Her physical exam today demonstrates clear lung blue irregular regular heart rate and no pedal edema. Intake Vital Signs Height 4 ft 9 in 10/10/17 Weight: 158 lb 10/10/17 Body Mass Index (BMI) 34.2 10/10/17 Blood Pressure 100/50 Intake Visit Reasons: 3 M FU (we moved from 09-26-17) Is patient in pain?: No Allergie s cephalexin monohydrate [From Keflex] Allergy (Intermediate, Verified 10/10/17 14:35) Hives ciprofloxacin [From Cipro] Allergy (Intermediate, Verified 10/10/17 14:35) Hives ciprofloxacin HCl [From Cip ro] Allergy (Intermediate, Verified 10/10/17 14:35) Hives metoprolol Adverse Reaction (Severe, Verified 10/10/17 14:35) Bradycardia atorvastatin calcium [From Lipitor] Adverse Reaction (Intermediate, Ve rified 10/10/17 14:35) Pain in joints rosuvastatin calcium [From Crestor] Adverse Reaction (Verified 10/10/17 14:35) Pain in joints some metals Allergy (Intermediate, Uncoded 06/22/16 22:05) Other wool Allergy (Intermediate, Uncoded 06/22/16 22:05) Hives Medications Cetirizine HCl [Zyrtec] 10 mg PO DAILY 05/16/14 [History Confirmed 10/09/17] Citalopram [Celexa] 40 mg PO QHS 05/16/14 [History Confir med 10/09/17] Docusate Sodium [Colace] 100 mg PO DAILY PRN PRN 05/16/14 [History Confirmed 10/09/17] Ergocalciferol [Vitamin D] 50,000 unit PO QMONTH 05/16/14 [History Confirmed 10/09/17] Ferrous Sulfat e 325 mg PO DAILY@0800 05/16/14 [History Confirmed 10/09/17] Fluticasone 0.05% [Flonase Nasal [place]] 1 spray NASAL DAILY 05/16/14 [History Confirmed 10/09/17] Lisinopril [Zestril] 20 mg PO QHS 05/16/14 [History Confirmed 10/09/17] Multivitamins,Therapeutic [Multivitamin] 1 tab PO BID 05/16/14 [History Confirmed 10/09/17] Zinc 50 mg PO DAILY 01/11/17 [History Confirmed 10/09/17] denosumab 60 mg/mL subc utaneous syringe 60 mg SC [id number] 10/04/17 [History Confirmed 10/09/17] levothyroxine 125 mcg tablet 125 mcg PO QDAY tab 10/04/17 [History Confirmed 10/09/17] lorazepam 0.5 mg tablet 0.5 mg PO BID PRN tab 10/04/17 [History Confirmed 10/09/17] furosemide 20 mg tablet 20 mg PO QDAY 10/09/17 [History Confirmed 10/09/17] metoprolol succinate ER 50 mg tablet,extended release 24 hr 50 mg PO QDAY tab [History Confirmed 10/09/17] apixaban 5 mg tablet 5 mg PO .COMPLEX 10/10/17 [History Confirmed 10/09/17] calcitriol 0.25 mcg capsule 0.25 mcg PO BID cap 10/10/17 [History Confirmed 10/10/17] calcium carbonate 600 mg calcium (1,500 mg) tablet 600 mg PO BID tab 10/10/17 [History Confirmed 10/10/17] Ejection fraction %: 50 to 54 PFSH Medical History O stium secundum atrial septal defect (Chronic) History of stroke (Chronic) Obesity (Resolved) Hyperlipidemia (Chronic) custodial current use of anticoagulant (Chronic) Atrial fibrillation (Chronic) Isaac gical History History of left heart catheterization (Chronic) History of thyroidectomy, total (Chronic) Family History Mother Myocardial infarction CAD (coronary artery disease) Father , age 72 Hypertension Social History Smoking Status: Former smoker ROS Const Const: Positive for other (Breaks out in sweats sometimes, had thyroid removed a few years ago); negative for body ache, fever(s), chills, night sweats, daytime sleepiness, difficulty sleeping, weight gain, weight loss, increas ed appetite, poor appetite, anorexia, frequent falls, headache(s), weakness, fatigue or excessive sweating Eyes Eyes: Negative for blurry vision or double vision ENT ENT: Negative for balance problems, Negative for dizziness, Negative for headache(s) Cardio Chest Pain: No Palpitations: Negative for Yes or No Edema: None Muscle aches with walking: None Resp Respiratory: Negative for SOB with activity, SOB at rest, SOB orthopnea\SOB lying down, Coughing up blood/hemoptysis, chest congestion, pain on inspiration, snoring, stridor, wheezing, crackles, paroxysmal nocturnal dyspnea or other GI GI: Negativ e nausea, vomiting, heartburn, constipation, belching, bloating, cramping, vomiting blood/hematemesis, bright, red blood in stools, black,tarry stools, loose stools, Difficulty Swallowing or other Musc Musc: Positive for joint pain (arthritis); negative for muscle aches/ myalgia, muscle weakness or balance problems Neuro Neuro: Negative for dizziness, Negative for lightheadedness, Negative for near sy ncope, Negative for syncope, Negative for orthostatic symptoms, Negative for frequent falls, Negative for headache(s), Negative for weakness, Negative for confusion, Negative for memory loss, Negative f or restless legs, Negative for blurry vision, Negative for double vision, Negative for vertigo, Negative for seizures, Negative for lack of coordination, Negative for other Endo Endo: Negative for fatig ue, cold intolerance, heat intolerance, excessive sweating, flushing, increased thirst/drinking, increased hunger, hair loss, hair growth or other Cardiology Exam Const Appearance: cooperative, health y appearing, well developed, well groomed and no acute distress Nutritional Appearance: well nourished and average body habitus Orientation: alert,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 [id number] Acct: [id number] Name: JODI PARKER Rep #: [id number] : 1950 F 66 From: Aaron Shrestha MD PCP: Justyna Hallman MD Status: REG CLI Study: Shoulder min 2 Views Date of Exam: 02/09/16 Exam# [id number] Ordering Dr: Justyna Rodriguez MD STUDY: X-RAY - RIGHT SHOULDER REASON FOR EXAM: Female, 66 years old. Shoulder pain. TECHNIQUE: 4 view(s) of the shoulder. COMPARISON: None. FINDINGS: There is mild degenerative arthrosis of the glenohumeral articulation. There is degenerative arthrosis of the acromioclavicular joint without inferior osseous spur formation. Normal acrom ion. Normal humeral head and visualized proximal humerus. There is periarticular soft tissue calcification consistent with a calcific tendinitis. Normal visualized pulmonary apex. IMPRESSION: Calcific tendinitis. Degenerative changes of the glenohumeral joint and acromioclavicular joint. Electronically Signed: Aaron Shrestha MD at 13: 47 EDT Tel [phone], Service support [phone], RAD/Shoulder min 2 Views IMPRESSION: Calcific tendinitis. Degenerative changes of the glenohumeral joint and acromioclavicular joint. Electronically Signed: Aaron Shrestha MD at 13:47 EDT Tel [phone], Service support [phone], CC: Justyna Hallman MD Electrical Line Worker: Signed 03-Feb-2016 Dexa Bone Density Study (HP) Result: Comments: See Note; NOTES: [facility] Imaging Services [address] [place] [address] Verdana 4d Dexa Bone Density Study (HP) MR#: [id number] Acct: [id number] Name : JODI MOMIN Rep #: [id number] : 1950 F 66 From: Aaron Shrestha MD PCP: Justyna Hallman MD Status: REG CLI Study: Dexa Bone Density Study (HP) Date of Exam: 02/03/16 Exam# [id number] Ordering Dr: Justyna Hallman MD STUDY: DUAL ENERGY X-RAY ABSORPTIOMETRY / DXA REASON FOR EXAM: Female, 66 years old. Early menopause. Loss of height. TECHNIQUE: Bone Mineral Density (BMD) measure ments of lumbar spine and bilateral hips were obtained. COMPARISON: Comparison is made with prior study dated January 28, 2014. FINDINGS: Lumbar Spine (L1-L4): g/ cm2 (0.969) / T-score (-1.6) / Z-score (0.0) Findings are suggestive of osteopenia with a moderate fracture risk. Left Femur Total: g/cm2 (0.902) / T-score (- 0.8) / Z-score (0.3) Left Femoral Neck: g/cm2 (0.777) / T-score (-1.9) / Z-score (-0.4) Right Femur Total: g/cm2 (0.804) / T-score (-1.6) / Z-score (-0.4) Right Femoral Neck: g/cm2 (0.768) / T-score (-1.9) / Z-score (-0.5) The T-Scores on the most recent prior examination were: Lumbar Spine (L1-L4): There has been improvement of bone density since the previous examination. Left Femur Total: which represents an improvement of 0.2%. Right Femur Total: which represents a worsening of 2.8%. IMPRESSION: The patient is considered osteopenic as outlined below according to World [employer] n (WHO) criteria with a moderate fracture risk. There has been improvement of bone density since the previous examination. Reference Information: The T-score is the number of standard deviations above or below the standard which is normal for young adults at their peak bone mineral density. The World Health Organization (WHO) interprets the T-scores as foll ows: Above -1 Normal bone density Between -1 and -2.5 Osteopenia Equal to / or below -2.5 Osteoporosis As a practical clinical guideline, osteopenia may be graded as follows: Mild -1 through -1.5 Moderate -1.6 through -2.0 Severe -2.1 through -2.4 The Z-score is the number of standard deviations above or below age-matched controls. A Z-score of less than -1.5 would be considered abnormal. References: 1. NIH Osteoporosis and Related Bone Diseases http://www.osteo.org 2. International Society for Clinical Densitometry http://www.iscd.org 3. National Osteoporosis Foundation http://www. nof.org Electronically Signed: Aaron Shrestha MD at 12:20 EDT Tel [phone], Service support [phone], CC: Justyna Hallman MD Electrical Line Worker: Signed 20-Dec-2015 Carotid Duplex Ultrasound Result: Comments: See Note; NOTES: [facility] Cardiovascular Services [address] [place] [address] Carotid Duplex Ultrasound 12/18/15 0908 MR#: [id number] Acct: [id number] Name: JODI MOMIN Rep #: [id number] : 1950 65 From: Rodrigue Campbell MD Attending Dr: Justyna Hallman MD Status: REG CLI Ordering Dr: Justyna Hallman MD Date: 12/18/15 Location: [facility] Sex: F C Admitted: Reason For Study: Carotid stenosis Rt. Velocities/BP Lt. Velocities/BP Prox CCA 65.7/18.2 cm/sec. Prox CCA 61.7/10.2 cm/sec. Mid CCA 61.6/17.0 cm/sec. Mid CCA 49.9/11.4 cm/sec. Dist CCA 55.1/21.1 cm/sec. Dist CCA 46.4/13.4 cm/sec. Prox ICA 45.6/18.2 cm/sec. Prox ICA 41.0/12.0 cm/sec. Mid ICA 87.9/28.7 cm/sec. Mid ICA 69.4/24.0 cm/sec. Dist ICA 53.6/22.5 cm/sec. Dist ICA 6 6.8/22.0 cm/sec. Rt. ICA/CCA = 1.4. Lt. ICA/CCA = 1.4. Prox ECA 60.4/12.9 cm/sec. Prox ECA 57.7/14.9 cm/sec. Rt. Vert. 19.8/4.1 cm/sec. Lt. Vert. 49.1/18.5 cm/sec. Right Extracranial There is inti mal thickening but no significant atherosclerotic plaque noted in the right common carotid artery. There is heterogeneous, irregular atherosclerotic plaque noted in the right internal carotid artery. There is no significant atherosclerotic plaque noted in the right external carotid artery. Antegrade flow is noted in the right vertebral artery. Left Extracranial There is intimal thickening but no significant atherosclerotic plaque noted in the left common carotid artery. There is heterogeneous, irregular atherosclerotic plaque noted in the left internal carotid artery. The left internal ca rotid artery is very tortuous. There is intimal thickening but no significant atherosclerotic plaque noted in the left external carotid artery. Antegrade flow is noted in the left vertebral artery. Procedure Carotid Duplex 35012. Exam performed in department. Interpretation Summary Mild (<50%) stenosis right extracranial internal carotid. Mild (<50%) stenosis left extracrania l internal carotid. Flow within the vertebral arteries is antegrade bilaterally. Ordering Phys ician: Justyna Hallman Performed By: Basia Mathews RVT 12/20/152037 Date Rodrigue Campbell MD CC: Justyna Hallman MD Date Dictated: 12/18/15907 Date Transcribed: 12/20/152037 Electrical Line Worker: Signed 29-Jan-2015 Bilat Scrn Digital AND CAD Result: Comments: See Note; NOTES: [facility] Imaging Services [address] [place] [address] Breast Imaging Report MR#: [id number] Acct: [id number] Name: JODI MOMIN Rep #: [id number] : 1950 F 65 From: Aaron Shrestha MD PCP: Justyna Hallman MD Status: REG CLI Study: Bilat Scrn Digital AND CAD Date of Exam: 01/29/15 Exam# [id number] Ordering Dr: Jeff Hallman MD MAMMOGRAPHY - BILATERAL SCREENING REASON FOR EXAM: Female, 65 years old. Routine annual screening examination. PERTINENT HISTORY: Non- contributory. TECHNIQUE: Digital examination. Mediol ateral oblique (MLO) and craniocaudad (CC) views of both breasts were obtained. CAD: CAD was performed on this study. COMPARISON: Comparison is made with prior examination dated January 28, 2014 and [facility] 2012. FINDINGS: Breast Composition: There are scattered areas of fibroglandular density. There are no dominant masses or suspicious calcifications. No o ther significant abnormalities are identified. There has been no significant change since the prior study. IMPRESSION: Stable bilateral screening mammogram. Year ly follow-up recommended. (A) ASSESSMENT CATEGORY: BIRADS Category 2: Benign. A letter regarding these results will be sent to the patient by the facility within 30 days. Approximately 10% of breast cancers are not detected by mammography. A normal mammogram should not delay biopsy of a clinically suspicious abnormality. Electronically Signed: Aaron gipson MD at 13:33 EDT Tel [phone], Service support [phone], CC: Justyna Hallman MD Electrical Line Worker: Signed 29-Jan-2015 Kam Bains Digital AND CAD Result: Comments: See Note; NOTES: [facility] Imaging Services [address] [place] [address] Breast Imaging Report MR#: [id number] Acct: [id number] Name: JODI MOMIN Rep #: [id number] : 1950 F 65 From: Aaron Shrestha MD PCP: Justyna Hallman MD Status: REG CLI Study: Bilphillip Bains Digital AND CAD Date of Exam: 01/29/15 Exam# [id number] Ordering Dr: Jeff Hallman MD MAMMOGRAPHY - BILATERAL SCREENING REASON FOR EXAM: Female, 65 years old. Routine annual screening examination. PERTINENT HISTORY: Non- contributory. TECHNIQUE: Digital examination. Mediol ateral oblique (MLO) and craniocaudad (CC) views of both breasts were obtained. CAD: CAD was performed on this study. COMPARISON: Comparison is made with prior examination dated January 28, 2014 and N[facility] 2012. FINDINGS: Breast Composition: There are scattered areas of fibroglandular density. There are no dominant masses or suspicious calcifications. No o ther significant abnormalities are identified. There has been no significant change since the prior study. IMPRESSION: Stable bilateral screening mammogram. Year ly follow-up recommended. (A) ASSESSMENT CATEGORY: BIRADS Category 2: Benign. A letter regarding these results will be sent to the patient by the facility within 30 days. Approximately 10% of breast cancers are not detected by mammography. A normal mammogram should not delay biopsy of a clinically suspicious abnormality. Electronically Signed: Aaron gipson MD at 13:33 EDT Tel [phone], Service support [phone], CC: Justyna Hallman MD Electrical Line Worker: Signed 03-Oct-2014 Operative Report Result: Comments: See Note; NOTES: [facility] Medical Records Department [address] [place] [address] Operative Report 09/30/14 1348 MR#: [id number] Acct: [id number] Name: JODI FLOREZ Rep #: [id number] : 1950 64 From: Lesa Crain MD PCP: Justyna Hallman MD Status: [facility] Y Location: [facility] Report of Operation Date of Procedure: 09/30/14 Pre-Operative Diagno sis: papillary thyroid cancer Post-Operative Diagnosis: same Surgery/Procedure Performed:: completion thyroidectomy nremt: Danna Jenkins Type of Anesthesia:: General Anesthesiologist: Bobby Schilling Specimen's removed: right thyroid lobe Drains: TLS in thyroid bed Estimated Blood Loss: about 25ml Fluids Replaced: 1900 cc RL Description of Procedure: After informed consent was obtain ed, the patient was brought to the Operating Room and placed in the supine position. Appropriate time out protocol was followed. She was then placed under GETA. The patient was then positioned with ar ms tucked and appropriate padding, with neck extension, and in the slightly reverse Trendelenburg position. The neck and upper chest were then prepped with a sterile surgical skin preparation and appro priate sterile surgical drapes were placed. The previous collar incision was incised with a 15 blade scalpel and carried down to the subcutaneous tissues using Bovie in the electrocautery mode. The lalo tysma was divided along the incision and then flaps were created superiorly to the cricoid cartilage level and inferiorly to the sternal notch. The fascia overlying the strap muscles was then divided along the midline. There was a large amount of inflammatory tissues in these layers. Excess inflammatory tissues were excised. Hemostasis controlled with electrocautery. The right thyroid lobe was e valuated. The plane between the thyroid gland anteriorly and the strap muscles posteriorly was then bluntly dissected. It was densely adherent due to postsurgical changes. Therefor this took some time. Attention was then directed to the superior pole of the thyroid gland. The superior pole vessels were then ligated with clips adjacent to the thyroid lobe in order to prevent damage to the superior laryngeal nerve. The parathyroid gland was identified and care was taken to preserve the blood supply to the parathyroid gland. With further dissection, the right thyroid lobe could be further retrac jhonny medially. The recurrent laryngeal nerve was identified. Dissection continued layer by layer to avoid injury to the parathyroid gland and the nerve, given the large amount of inflammation. Therefore this took some time. The mid thyroid vein was ligated with ligaclips. Then dissection continued to identify the inferior pole vessels of the left thyroid gland. The inferior pole vessels were identi fied and ligated with clips. And then transected. Blunt dissection was then carefully for the remainder of the thyroid attachments as this area medially had the largest amount of inflammation from the previous surgery. Therefore this took some time. The thyroid gland was then freed of all its attachments. It was then forwarded to pathology. Hemostasis was carefully controlled with electrocautery avoiding any injury to the recurrent laryngeal nerves and the parathyroid glands. Because of the inflammatory changes, Amairani was applied to the thyroid bed. A small TLS drain was then placed in the thyroid bed and brought out through the incision. The fascia of the strap muscles was then reapproximated along the midline using Vicryl suture. The platysma muscle was then reapproximated in a transv erse fashion using interrupted 2-0 Vicryl suture. The skin incision was then reapproximated using 4-0 Monocryl in a running subcuticular fashion. The drain was brought out through the middle portion of the incision and sutured to the skin using nylon suture. The skin closure was reinforced using dermibond and a sterile dressing was applied. The patient was then extubated. She was brought to the Recovery Room in stable condition. She was able to phonate the letter E without difficulty. Patient tolerated procedure well. - Complications none noted - Admit VTE Documentation VTE Present on Admission: Yes VTE Mechan Device Prophylaxis: Calf SCD-Sequential Compression Device VTE Pharm Prophylaxis ordered?: No Reason prophylaxis not ordered:: Surgical contraindication 10/03/14 1157 <Electronically signed by Lesa Crain MD> Date Lesa Crain MD CC: Justyna Hallman MD; Lesa Crain MD Signed 01-Oct-2014 Discharge Instruction Result: Comments: See Note; NOTES: [facility] Medical Records Department [address] [place] [address] Instructions for Home/Discharge Instructions 10/01/14 0833 MR#: [id number] Acc t: [id number] Name: JODI MOMIN Rep #: [id number] : 1950 64 From: Lesa Crain MD PCP: Justyna Hallman MD Status: REG [facility] ADDENDUM by Lesa Crain MD on 10/01/14 at 0839 Also, may apply ice packs to neck area as tolerated Date Lesa Crain MD cc: Justyna Hallman MD * Signed Discharge Diet: Soft diet - soft mechanical diet - apple sauce, mashed potatoes, soups, etc, drink plenty of fluids Discharge Activity: Return to Normal Activity, May not drive while taking narcotic pain medications. Additional Activity Instructions :: Sponge bathe only. Be careful of drain, it is only taped in Call your doctor if you observe: Fever of 101 or Higher Additional Dressing/Incision Instructions:: Leave dressing in place. Will be ch anged when follow up in clinic tomorrow. Change red top tube as needed Additional Instructions: Increase Caltrate dosage to 2 tablets twice a day Hold off on Xeralto for tonight, may begin taking it on 10/02/14 Allergies/Adverse Reactions: Allergies cephalexin monohydrate [From Keflex] Allergy (Intermediate, Verified 09/24/14 11 :08) Hives ciprofloxacin [From Cipro] Allergy (Intermediate, Veri fied 09/24/14 11:08) Hives ciprofloxacin HCl [From Cipro] Allergy (Intermediate, Verified 09/24/14 11:08) Hives atorvastatin calcium [From Lipitor] Adverse Reaction (Intermediate, Verified 11:08) Pain in joints rosuvastatin calcium [From Crestor] Adverse Reaction (Verified 09/24/14 11:08) Pain in joints some metals Allergy (Intermediate, Uncoded 09/30/14 23:19) Other caused celluli tus in breast and moise on hyster incision got inflammed immediatly. metal had to be removed. nickel makes red welts wool Allergy (Intermediate, Uncoded 09/24/14 11:08) Hives Medications to take at Discharge Ammonium Lactate [Lac-Hydrin] 140 gm TP UD Calcium (Elemental) [Caltrate-600] 1,200 mg PO DAILY Cetirizine HCl [Zyrtec] 10 mg PO DAILY Citalopram [Celexa] 40 mg PO QHS Docusate Sodiu m [Colace] 100 mg PO DAILY PRN PRN Ergocalciferol [Vitamin D] 50,000 unit PO Q7D Ferrous Sulfate 325 mg PO DAILY@0800 Fluticasone 0.05% [Flonase Nasal [place]] 1 spray NASAL DAILY Furosemide [Lasix] 2 0 mg PO DAILY Lisinopril [Zestril] 20 mg PO QHS Lorazepam [Ativan] 0.5 mg PO BID PRN PRN Metoprolol(XL)Succ [Toprol Xl (Beta Michael)] 25 mg PO DAILY Multivitamins,Therapeutic 1 tablet PO BID Rivar oxaban [Xarelto] 20 mg PO DAILY Denosumab [Prolia] 60 mg SQ Calcium (Elemental) [Caltrate-600] 600 mg PO QHS Hydrocodone/Acetaminophen [Vicodin 5-300 mg Tablet] 1 - 2 tablet PO Q6H PRN PRN #30 table t Oxycodone HCl/Acetaminophen [Percocet 5/325] 1 - 2 tablet PO Q4H PRN PRN #30 tablet The following prescriptions were given: Oxycodone HCl/Acetaminophen [Percocet 5/325] 1 - 2 tablet PO Q4H PRN P RN #30 tablet PRN Reason: Pain Please Follow Up With: Lesa Crain - call When: to be seen tomorrow, please call for time, thank you Proposed Discharge Date: 10/01/14 10/01/14 0 837 <Electronically signed by Lesa Crain MD> Date Lesa Crain MD CC: Justyna Hallman MD 01-Oct-2014 Discharge Instruction Result: Comments: See Note; NOTES: [facility] Medical Records Department [address] [place] [address] Instructions for Home/Discharge Instructions 10/01/14 0833 MR#: [id number] Acc t: [id number] Name: JODI MOMIN Rep #: [id number] : 1950 64 From: Lesa Crain MD PCP: Justyna Hallman MD Status: REG [facility] Discharge Diet: Soft diet - soft mechanical diet - apple sauc e, mashed potatoes, soups, etc, drink plenty of fluids Discharge Activity: Return to Normal Activity, May not drive while taking narcotic pain medications. Additional Activity Instructions:: Sponge b athe only. Be careful of drain, it is only taped in Call your doctor if you observe: Fever of 101 or Higher Additional Dressing/Incision Instructions:: Leave dressing in place. Will be changed when follow up in clinic tomorrow. Change red top tube as needed Additional Instructions: Increase Caltrate dosage to 2 tablets twice a day Hold off on Xeralto for tonight, may begin taking it on 10/02/14 Allergies/Adverse Reactions: Allergies cephalexin monohydrate [From Keflex] Allergy (Intermediate, Verified 09/24/14 11 :08) Hives ciprofloxacin [From Cipro] Allergy (Intermediate, Verified 11:08) Hives ciprofloxacin HCl [From Cipro] Allergy (Intermediate, Verified 09/24/14 11:08) Hives atorvastatin calcium [From Lipitor] Adverse Reaction (Intermediate, Verified 11:08) Pa in in joints rosuvastatin calcium [From Crestor] Adverse Reaction (Verified 09/24/14 11:08) Pain in joints some metals Allergy (Intermediate, Uncoded 09/30/14 23:19) Other caused cellulitus in [address] st and moise on hyster incision got inflammed immediatly. metal had to be removed. nickel makes red welts wool Allergy (Intermediate, Uncoded 09/24/14 11:08) Hives Medications to take at Dischar ge Ammonium Lactate [Lac-Hydrin] 140 gm TP UD Calcium (Elemental) [Caltrate- 600] 1,200 mg PO DAILY Cetirizine HCl [Zyrtec] 10 mg PO DAILY Citalopram [Celexa] 40 mg PO QHS Docusate Sodium [Colace] 100 mg PO DAILY PRN PRN Ergocalciferol [Vitamin D] 50,000 unit PO Q7D Ferrous Sulfate 325 mg PO DAILY@0800 Fluticasone 0.05% [Flonase Nasal [place]] 1 spray NASAL DAILY Furosemide [Lasix] 20 mg PO TONJA LY Lisinopril [Zestril] 20 mg PO QHS Lorazepam [Ativan] 0.5 mg PO BID PRN PRN Metoprolol(XL)Succ [Toprol Xl (Beta Michael)] 25 mg PO DAILY Multivitamins,Therapeutic 1 tablet PO BID Rivaroxaban [Xar elto] 20 mg PO DAILY Denosumab [Prolia] 60 mg SQ Calcium (Elemental) [Caltrate- 600] 600 mg PO QHS Hydrocodone/Acetaminophen [Vicodin 5-300 mg Tablet] 1 - 2 tablet PO Q6H PRN PRN #30 tablet Oxycodon e HCl/Acetaminophen [Percocet 5/325] 1 - 2 tablet PO Q4H PRN PRN #30 tablet The following prescriptions were given: Oxycodone HCl/Acetaminophen [Percocet 5/325] 1 - 2 tablet PO Q4H PRN PRN #30 tab let PRN Reason: Pain Please Follow Up With: Lesa Crain - call When: to be seen tomorrow, please call for time, thank you Proposed Discharge Date: 10/01/14 10/01/14 0837 &#6 0;Electronically signed by Lesa Crain MD> Date Lesa Crain MD CC: Justyna Hallman MD 14-Sep-2014 Operative Report Result: Comments: See Note; NOTES: [facility] Medical Records Department [address] [place] [address] Operative Report 09/10/14 1244 MR#: [id number] Acct: [id number] Name: JODI FLOREZ Rep #: [id number] : 1950 64 From: Lesa Crain MD PCP: Justyna Hallman MD Status: DEP [facility] Y Location: [facility] Report of Operation Date of Procedure: 09/10/14 Pre-Operative Diagno sis: left thyroid nodules - atypical follicular findings by FNA Post-Operative Diagnosis: same Surgery/Procedure Performed:: left thyroid lobectomy and isthmusectomy nremt: Danna Jenkins of Anesthesia:: General Anesthesiologist: Bobby Dang Specimen's removed: left thyroid and isthmus Drains: 4mm drain in left thyroid bed Estimated Blood Loss: 25 cc Fluids Replaced: 2000 cc R L Description of Procedure: After informed consent was obtained, the patient was brought to the Operating Room and placed in the supine position. Appropriate time out protocol was followed. She was then placed under general anesthesia. The patient was then positioned with arms tucked and appropriate padding, with neck extension, and in the slightly reverse Trendelenburg position. The neck and upp er chest were then prepped with a sterile surgical skin preparation and appropriate sterile surgical drapes were placed. The landmarks were identified and a low cervical collar incision was made with a 15 blade scalpel and carried down to the subcutaneous tissues using Bovie in the electrocautery mode. The platysma was divided along the incision and then flaps were created superiorly to the cricoi d cartilage level and inferiorly to the sternal notch. The fascia overlying the strap muscles was then divided along the midline. The left thyroid gland was approached. The left thyroid was large 8 cm and multinodular. It was also adherent, the tissue planes were not distinct but had some inflammatory changes. The plane between the thyroid gland anterior and the strap muscles posteriorly was the n bluntly dissected. Once again, this was inflamed and not as easily bluntly dissected as normally. Dissection continued layer by layer to identify the inferior pole vessels of the left thyroid gland. The inferior pole vessels were identified and these were ligated and transected with the Harmonic scalpel. Ligaclips were also used. The middle thyroid vein was identified and also ligated with the H armonic scalpel and then transected. The inferior pole was then bluntly dissected free and the surrounding investiture. The left lobe of the thyroid thus could be retracted medially. Attention was the n directed to the superior pole of the thyroid gland. The superior pole vessels were then ligated with ligaclips. The parathyroid gland was identified and care was taken to preserve the blood supply t o the parathyroid gland. The thyroid gland was appearing ischemic and shrunk in size at this time and the gland could be further retracted medially. The recurrent laryngeal nerve was identified. The thyroid tissue was free from the attachments to the trachea. The recurrent laryngeal nerve protected. There was a small tongue of thyroid tissue extended superior along the trachea and this was resect ed en earl with the left thyroid gland. It was then forwarded to pathology. A frozen section revealed atypia but invasive cancer could not be identified. Surgicel was applied to the dissection area for hemostasis. A small area along the trachea had some bleeding, it was controlled with a figure of 8 5-0 prolene suture. No further bleeding was noted after careful inspection of the entire area. A fenestrated 4mm drain was then placed in the thyroid bed and brought out through the incision. The fascia of the strap muscles was then reapproximated along the midline using Vicryl suture. The plat ysma muscle was then reapproximated in a transverse fashion using interrupted 2-0 Vicryl suture. The skin incision was then reapproximated using 4-0 Monocryl in a running subcuticular fashion. The elisa in was brought out through the middle portion of the incision. The skin closure was approximated with Dermabond. Telfa and tape was appllied. The patient was then extubated. She was brought to the Rec overy Room in stable condition. She was able to phonate the letter E without difficulty. Patient tolerated procedure well. - Complications none noted - Admit VTE Documentation VTE Present on Admission: Yes VTE Mechan Device Prophylaxis: Calf SCD-Sequential Compression Device VTE Pharm Prophylaxis ordered?: No Reason prophylaxis not ordered:: Surgical contraindication 1900 <Electronically signed by Lesa Crain MD> Date Lesa Crain MD CC: Justyna Hallman MD; Lesa Crain MD Signed 01-Sep-2014 Operative Report Result: Comments: See Note; NOTES: [facility] Medical Records Department [address] [place] [address] Operative Report 08/26/14 2105 MR#: [id number] Acct: [id number] Name: JODI FLOREZ Rep #: [id number] : 1950 64 From: Lesa Crain MD PCP: Justyna Hallman MD Status: REG CLI Y Location: US Report of Operation Date of Procedure: 08/26/14 Pre-Operative Diagnos is: abnormal thyroid nodules x 2 Post-Operative Diagnosis: same Surgery/Procedure Performed:: US guided FNA of left and isthmus thyroid nodules x 2 Type of Anesthesia:: Local - 1% xylocaine Specime n's removed: FNA of left thyroid nodules Estimated Blood Loss: minimal Fluids Replaced: none Description of Procedure: After informed consent was given, the patient was brought to the ultrasound scott ite, and placed in the supine position. Appropriate time out protocol was followed. Using the ultrasound transducer, the suspicious lesions were localized and marked. Both were larger than 2 cm, one w as in the left lobe and one was at the isthmus. The skin at where the biopsy needle would be inserted was then cleansed with alcohol and the skin and subcutaneous tissues at the biopsy site were infi ltrated with 1% xylocaine. Holding the transducer in my left hand, I guided the 22G needle attached to a 10 cc syringe into the left thyroid nodule. The needle was aspirated and then the needle was wi thdrawn and with syringe was passed to the pathologist who immediately made slides for review. The specimen was adequate for review. Hemostasis was controlled with pressure. The next lesion was appr oached - this was the thyroid isthmus nodule. Holding the transducer in my left hand, I guided the 22G needle attached to a 10 cc syringe into the left thyroid nodule. The needle was aspirated and the n the needle was withdrawn and with syringe was passed to the pathologist who immediately made slides for review. The specimen was adequate for review. Hemostasis was controlled with pressure. A band aid was applied to the site. The patient tolerated the procedure well. She was discharged from the radiology suite in stable condition. - Complications none noted - Admit VTE Documentation VTE Pr esent on Admission: No - low risk procedure VTE Mechan Device Prophylaxis: None VTE Pharm Prophylaxis ordered?: No Reason prophylaxis not ordered:: Surgical contraindication 09/01/14 0921 &#60 ;Electronically signed by Lesa Crain MD> Date Lesa Crain MD CC: Justyna Hallman MD; Lesa Crain MD Signed 26-Aug-2014 US Thyroid Biopsy Result: Comments: See Note; NOTES: [facility] Imaging Services [address] [place] [address] Ultrasound Report MR#: [id number] Acct: [id number] Name: JODI MOMIN Rep #: [id number] : 1950 F 64 From: Aaron Shrestha MD PCP: Justyna Hallman MD Status: REG CLI Study: US Thyroid Biopsy Date of Exam: 08/26/14 Exam# [id number] Ordering Dr: Lesa Crain MD STUDY: ULTRASOUND-GUIDED THYROID BIOPSY. REASON FOR EXAM: Female, 64 years old. Left thyroid nodule. TECHNIQUE: Under direct sonographic guidance, the surgeon performed percutaneous needle biopsy of the m ass in the left lobe of the thyroid gland as well as the nodular density in the left side of the isthmus. COMPARISON: Comparison is made with prior ultrasound of the thyroid dated June 05, 2014 . IMPRESSION: Successful ultrasound-guided biopsy of the left thyroid nodule as well as a nodule in the left part of the is thmus. Electronically Signed: Aaron Shrestha MD at 13:55 EST Tel [phone], Service support [phone], CC: Justyna Hallman MD; Lesa Crain MD Electrical Line Worker: Signed 13-Aug-2014 Thyroid Uptake Single or Mult Result: Comments: See Note; NOTES: [facility] Imaging Services [address] [place] [address] Nuclear Medicine Report MR#: [id number] Acct: [id number] Name: JODI MOMIN Rep #: [id number] : 1950 F 64 From: Jorge Marroquin DO PCP: Justyna Hallman MD Status: REG CLI Study: Thyroid Uptake Single or Mult Date of Exam: 08/13/14 Exam# [id number] Ordering Dr: Justyna Hallman MD CLINICAL: 64 year old female with reported history of thyroid nodularity. I-123 THYROID UPTAKE and SCAN COMPARISON: Thyroid ultrasound report 06/05/14 FINDINGS: The patient was administ ered a 268 uCi I-123 capsule by mouth. The 4-hour I-123 radioactive iodine thyroidal uptake was calculated to be 7.0 % (normal 5 to 25 %). The 24-hour I-123 radioactive iodine thyroidal uptake was calculated to be 17.5 % (normal 5 to 40 %). The I-123 thyroid scan demonstrates heterogeneous distribution of the radiopharmaceutical throughout both lobes of a U-shaped thyroid gland. No dominant hypofunctioning-cold nodules are visualized. IMPRESSION: 1. NORMAL 4- and 24- hour I-123 radioactive iodine thyroidal uptakes. 2. 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 Electronically Signed: Jorge Marroquin DO at 20:59 EST Tel [phone], Service support [phone] , CC: Justyna Hallman MD Electrical Line Worker: Signed 05-Jun-2014 Thyroid Result: Comments: See Note; NOTES: [facility] Imaging Services [address] [place] [address] Ultrasound Report MR#: [id number] Acct: [id number] Name: JODI MOMIN Rep #: : 1950 F 64 From: Aaron Shrestha MD PCP: Justyna Hallman MD Status: REG CLI Study: Thyroid Date of Exam: 06/05/14 Exam# [id number] Ordering Dr: Justyna Hallman MD STUDY: THYROID ULTRASOUND REASON FOR EXAM: Female, 64 years old. Abnormal thyroid on a recent CT scan of the thorax. TECHNIQUE: Ultrasound evaluation of the thyroid was performed with real-time and static boyer-s corinne imaging. COMPARISON: Comparison is made with prior CT scan of thorax dated May 21, 2014. FINDINGS: RIGHT LOBE: The right lobe of the thyroid gland measures 5.4 cm x 2.2 cm x 1.8 cm. There is a heterogeneous echotexture. There are 2 small hypoechoic solid nodules in the right lobe. The largest measures 5 mm x 5 mm x 4 mm. LEFT LOBE: The left lo be of the thyroid gland measures 5.2 cm x 2.8 cm x 2.2 cm. There is a heterogeneous echotexture. There is a 2.2 cm x 1.9 cm x 1.5 cm isoechoic solid nodule in the midportion of the left lobe. Adjacen t to this, there is also evidence of a 1.2 cm x 0.9 cm x 0.7 cm hypoechoic solid nodule with focal calcification. ISTHMUS: The isthmus measures 6.0 mm. There is a 2.6 cm x 2.5 cm x 1.6 cm solid mass along the left side of the isthmus. The regional lymph nodes are normal. IMPRESSION: Heterogeneous thyroid with bilateral nodules more prominent in the left lobe and in the left side of the isthmus. Correlation with biopsy is recommended. Electronically Signed: Aaron Shrestha MD at 15:21 EDT Tel [phone], Service support [phone] , CC: Justyna Hallman MD Electrical Line Worker: Signed 21-May-2014 Chest WITH Contrast Result: Comments: See Note; NOTES: [facility] Imaging Services [address] [place] [address] CAT Scan Report MR#: [id number] Acct: [id number] Name: JODI MOMIN Rep #: [id number] : 1950 F 64 From: Aaron Shrestha MD PCP: Justyna Hallman MD Status: REG CLI Study: Chest WITH Contrast Date of Exam: 05/21/14 Exam# [id number] Ordering Dr: Yosi Mcnair MD STUDY: CT CHEST WITH CONTRAST REASON FOR EXAM: Female, 64 years old. One-year history of shortness of breath. RADIATION DOSAGE (If Supplied By Facility): CTDIvol = ( 16.27 ) mGy, DLP = ( 675.13 ) mGycm TECHNIQUE: High resolution transaxial imaging was performed following intravenous administration of 100CC ml of Isovue 300 contrast material. Multiplanar coronal and sagittal images were reformatted . COMPARISON: None. FINDINGS: There is inhomogeneous enlargement of the thyroid gland. The isthmus is prominent. I suspect a 1.7 cm hypodense nodule within the isthmus. Focal calcification is seen in the left lobe of the thyroid. There are increased linear markings with focal area of confluence in the right middle lobe. This may represent scarring. Minima l increased linear markings are also seen in the lingular segment of the left upper lobe. There is no demonstrated pleural abnormality. There is mild cardiac enlargement. There are calcifications of the coronary arteries. Normal mediastinum. Normal hilar regions. Normal enhanced pulmonary arteries. Normal aorta arch and descending thoracic aorta. There is prominence of the first costochondra l junction on the right side. There is evidence of disc space narrowing and degenerative changes throughout the thoracic spine. There is evidence of diffuse osteopenia involving the thoracic vertebra e. Small hiatal hernia. IMPRESSION: Linear scarring involving the lingular segment of the left upper lobe as well as the anterior aspect of the right middle lo be. Electronically Signed: Aaron Shrestha MD at 10:50 EDT Tel [phone], Service support [phone], CC: Yosi Mcnair MD; Justyna Hallman MD Electrical Line Worker: Signed 20-May-2014 Operative Report Result: Comments: See Note; NOTES: [facility] Medical Records Department [address] [place] [address] Operative Report MR#: [id number] Acct: [id number] Name: JODI MOMIN Rep #: [id number] : 1950 64 From: Yosi Mcnair MD PCP: Justyna Hallman MD Status: DEP CLI DATE OF SERVICE: INDICATIONS: The patient is a 64-year-old lady with a history of abnormal stress test and shortness of breath. The present cardiac catheterization has been undertaken to assess anatomy and to guide therapy. DESCRIPTION OF PROCEDURE: After procedure was explained to the patien t as well as the associated risks, informed consent was obtained. Xylocaine 1% was used for local anesthetic agent to anesthetize the right femoral area. A 5-St Lucian right femoral arterial sheath was placed without difficulty and side port flushed. A 5-St Lucian JL4 catheter was advanced to ascending aorta, flushed and pressures recorded. Left coronary ostium was identified and engaged and left c oronary angiography performed in multiple views. Following this, the catheter was removed and a 5-St Lucian JR4 catheter was inserted. The right coronary ostium was identified and engaged. Right coronar y angiography performed in multiple views. Following this, the catheter was removed and a pigtail catheter was inserted. Left ventriculogram was performed with 36 mL of contrast at 12 mL per second. Following this, all catheters were removed. The sheath was removed. Digital pressure applied and hemostasis achieved. HEMODYNAMICS: Baseline heart rate was 74 beats per minute. Aortic pressures w ere 97/56. Left ventricular pressure is 96/15. Post-angiogram left ventricle pressures were 95/ 14. Aortic pressure is 105/58. CORONARY ARTERIOGRAPHY: 1. Left main: The left main coronary artery wa s noted to be angiographically normal. It bifurcated into left anterior descending artery and left circumflex artery. No significant stenosis was noted in this vessel. 2. Left circumflex artery: The left circumflex artery was a nondominant vessel. It was mildly diseased and terminated with a trifurcating obtuse marginal vessel. No significant stenosis was noted in this vessel. 3. Left anterio r descending artery: Left anterior descending artery was a medium-sized vessel. There was mildly calcified in the proximal region with 2 diagonal branches. There septal perforators were also noted. After that, the left anterior descending artery in the region of the diagonal vessel but then went towards the apex of the left ventricle. No significant stenosis was noted in this vessel. 5. Right coronary artery: The right coronary artery was a dominant vessel. It gave a sinoatrial branch, a conus branch and acute marginal branch and a posterolateral and posterior descending artery branch. Thi s vessel was mildly diseased. There is no high-grade stenosis was noted in this vessel. LEFT VENTRICULOGRAM: The left ventriculogram demonstrated preserved left ventricular systolic function. The estimated ejection fraction was noted to be 50-55%. No wall motion abnormalities were present. CONCLUSION: 1. Angiographically normal left main coronary artery. 2. Left anterior descending artery , which is angiographically normal. 3. Left circumflex artery with mild disease. 4. Dominant right coronary artery with no significant disease. 5. Borderline ejection fraction. RECOMMENDATIONS: Ba sed on the above angiographic findings, I would recommend that we continue her on the current medical therapy with no changes. Alternate sources for her shortness of breath need to be sought. Thank you for allowing me to participate in her care. Yosi Mcnair MD T: NTS JOB: [id number] 05/20/142002 <Electronically signed by Yosi Mcnair MD> Date Yosi Mcnair MD CC: Yosi Mcnair MD; Justyna Hallman MD Date Dictated: 05/19/14 1003 Date Transcribed: 05/19/14 1003 Electrical Line Worker: Signed 15-May-2014 Chest PA and Lateral Result: Comments: See Note; NOTES: [facility] Imaging Services [address] [place] [address] Radiology Report MR#: [id number] Acct: [id number] Name: JODI MOMIN Rep #: [id number] : 1950 F 64 From: Vik Ball MD PCP: Justyna Hallman MD Status: PRE CLI Study: Chest PA and Lateral Date of Exam: 05/15/14 Exam# [id number] Ordering Dr: Yosi Mcnair MD STUDY: X- RAY CHEST REASON FOR EXAM: Female, 64 years old. Chest pain TECHNIQUE: Frontal and lateral views of the chest. COMPARISON: August 10, 2009 FINDINGS: Ther e is partial atelectasis in the lingula. There is possible left hilar mass. There is no demonstrated pleural abnormality. Normal size heart. Normal mediastinum and pedrito. Normal visualized pulmonary arteries. Normal visualized aortic arch and descending thoracic aorta. Normal visualized thoracic spine. Normal visualized ribs, clavicles, and shoulders. There is no demonstrated abnormality of t he visualized soft tissue structures of the upper abdomen. IMPRESSION: Possible left hilar mass with partial atelectasis in lingula. Electronically Signed: Josué Jarvis MD at 10:17 EDT Tel , Service support [phone], CC: Yosi Mcnair MD; Justyna Hallman MD Electrical Line Worker: Signed 05-May-2014 Nuclear Stress Test - Chemical Result: Comments: See Note; NOTES: [facility] Imaging Services [address] [place] [address] Nuclear Medicine Report MR#: [id number] Acct: [id number] Name: JODI MOMIN Rep #: [id number] : 1950 F 64 From: Yosi Mcnair MD PCP: Justyna Hallman MD Status: REG CLI Study: Nuclear Stress Test - Chemical Date of Exam: 05/05/14 Exam# [id number] Ordering Dr: Jose Estrada PHARMACOLOGIC MYOCARDIAL PERFUSION STRESS TEST REASON FOR EVALUATION: This is a 64-year-old lady with a history of chronic atrial fibrillation and chest pain. BASELINE INFORMATION: Res ting EKG demonstrates atrial fibrillation with a rate of 66 beats. Normal intervals are noted. Resting blood pressure was 119/80. STRESS TEST: 0.4 mg of regadenoson was infused per usual protocol fo llowed by rapid intravenous saline flush injection. Continuous EKG monitoring was performed. The patient maintained atrial fibrillation throughout the recording with a heart rate raising to 93 beats p er minute, which atrial fibrillation. The resting blood pressure was 119/80 with a final blood pressure of 106/66. There were no ST or T-wave changes noted to suggest abnormal flow reserve. MYOCARDI AL PERFUSION PROTOCOL: 11.4 mCi of Sestamibi was injected at rest. 0.4 mg of regadenoson was infused per usual protocol. At peak infusion, 33.8 mCi of Sestamibi was injected. Stress images were obtai benjamin. Stress and rest images were reconstructed and compared in the short axis, vertical long, and horizontal long axes. Gated images were also obtained. PERFUSION SPECT ANALYSIS: Review of the imag es demonstrate normal uptake of tracer noted in the septum, inferior wall, and lateral wall. The anterior wall demonstrates mildly reduced perfusion on the stress images. This appears to be present on the resting images as well, but to a slightly less extent. Mild anterior ischemia cannot be completely excluded. GATED SPECT ANALYSIS: The gated ejection fraction is noted to be 64%. CONCLUSION: 1. Pharmacologic myocardial perfusion stress test with mild anterior ischemia present. 2. Preserved ejection fraction. CC: Justyna Hallman MD; Sarah Estrada Electrical Line Worker: JOSUÉ Signed 28-Jan-2014 Bilat Scrn Digital & CAD Result: Comments: See Note; NOTES: [facility] Imaging Services [address] [place] [address] Breast Imaging Report MR#: [id number] Acct: [id number] Name: JODI MOMIN Rep # : [id number] : 1950 F 64 From: Aaron Shrestha MD PCP: Justyna Hallman MD Status: REG CLI Exam# [id number] Ordering Dr: Justyna Hallman MD MAMMOGRAPHY - BILATERAL SCREENING REASON FOR EX AM: Female, 64 years old. Routine annual screening examination. PERTINENT HISTORY: Prior right stereotactic biopsy. TECHNIQUE: Digital examination. Mediolateral oblique (MLO) and craniocaudad (CC) views of both breasts were obtained. CAD: CAD was performed on this study. COMPARISON: Comparison is made with prior study dated January 18, 2013 and May 19, 2009. ____ FINDINGS: The breast composition is composed of scattered fibroglandular tissues ranging from 25% to 50% of the breast. There are no dominant masses or suspicious calcifications. No other s ignificant abnormalities are identified. There has been no significant change since the prior study. IMPRESSION: Stable bilateral screening mammogram. Yearly fol low-up recommended. (A) ASSESSMENT CATEGORY: BIRADS Category 2: Benign finding(s). A letter regarding these results will be sent to the patient by the facility w ithin 30 days. Approximately 10% of breast cancers are not detected by mammography. A normal mammogram should not delay biopsy of a clinically suspicious abnormality. Electronically Signed: Bryon Shrestha MD at 14:22 EDT Tel [phone], Service support [phone], CC: Justyna Hallman MD Electrical Line Worker: Signed 28-Jan-2014 Dexa Bone Density Study (HP) Result: Comments: See Note; NOTES: [facility] Imaging Services [address] [place] [address] Bone Density Report MR#: [id number] Acct: [id number] Name: JODI MOMIN Rep #: [id number] : 1950 F 64 From: Aaron Shrestha MD PCP: Justyna Hallman MD Status: REG CLI Study: Dexa Bone Density Study (HP) Date of Exam: 01/28/14 Exam# [id number] Ordering Dr: Justyna Hallman MD STUDY: DUAL ENERGY X-RAY ABSORPTIOMETRY / DXA REASON FOR EXAM: Female, 64 years old. The patient is postmenopausal. Chronic steroid use. TECHNIQUE: Bone Mineral Density (BMD) measurements o f lumbar spine and bilateral hips were obtained. COMPARISON: Comparison is made with prior study dated September 20, 2011. FINDINGS: Lumbar Spine (L1-L4): g/cm2 (0.878) / T-score (-2.4) / Z-score (-1.0) Findings are suggestive of osteopenia with a moderate fracture risk. Left Femur Total: g/cm2 (0.900) / T-score (- 0.9) / Z-score (0.2) Left Femoral Neck: g/ cm2 (0.707) / T-score (-2.4) / Z-score (-1.0) Right Femur Total: g/cm2 (0.827) / T-score (-1.4) / Z-score (-0.4) Right Femoral Neck: g/cm2 (0.718) / T-score (-2.3) / Z-score (-0.9) The T-Scores on t he most recent prior examination were: Lumbar Spine (L1-L4): There has been improvement of bone density since the previous examination. Left Femur Total: which represents an improvement of 0.8%. R ight Femur Total: which represents a worsening of 2.7%. IMPRESSION: The patient is considered osteopenic as outlined below according to World Stanton Organization (WHO) criteria with a moderate fracture risk. There has been improvement of bone density since the previous examination. Reference Information: The T-score is t he number of standard deviations above or below the standard which is normal for young adults at their peak bone mineral density. The World Health Organization (WHO) interprets the T-scores as follow s: Above -1 Normal bone density Between -1 and -2.5 Osteopenia Equal to / or below -2.5 Osteoporosis As a practical clinical guideline, osteopenia may be graded as follows: Mild -1 through -1.5 Moderate -1.6 through -2.0 Severe -2.1 through -2.4 The Z-score is the number of standard deviations above or below age-matched controls. A Z-score of less than -1.5 would be considered abnormal. References: 1. NIH Osteoporosis and Related Bone Diseases http://www.osteo.org 2. International Society for Clinical Densitometry http://www.iscd.org 3. National Osteoporosis Foundation http://www.no f.org Electronically Signed: Aaron Shrestha MD at 10:44 EDT Tel [phone], Service support [phone], CC: Justyna Hallman MD Electrical Line Worker: Signed Immunization Name Dates Details Influenza (3 years and up) on: 30-Jun-2008 Comments: Lot #[id number]-left deltoidDose0.5 mlgiven by Cristine Ott LPN Family History Unknown Family Member Name Dates Details 5 half brothers and sisters: nothing major know of Status: Active Daughter 1 Comments: heart issue on atenelol Status: Active Father Comments: Gall bladder issues, at 72 yo in bed one night no autopsy Status: Active Maternal Grandmother Comments: Dementia Status: Active Mother Comments: Heart disease before 60& high cholesterol, borderline diabetic, alive Status: Active Sister 1 Comments: Chron's, colitis, ileostomy Status: Active Son 1 Comments: Chron's disease Status: Active Son 2 Status: Active Negative Family History of: Comments: Diabetes, Heart, High BP, High Chol. 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 Status: Active Tobacco use Comments: same status 12.10.22, 10/12/11, 01/09/12 Status: Inactive Smoking Status Name Dates Details Former smoker Vital Signs Date Test Result Details :35 Temperature 97.6 f Comments: Method: Temporal Pulse 90 /min Comments: Pattern: Regular Respiration Rate 24 /min Comments: Pattern: Unlabored O2 SAT 97 % Comments: Room air BP Systolic 120 mm[Hg] Comments: Patient Position: Sitting; Cuff Location: Left Arm; Cuff Size: Standard BP Diastolic 78 mm[Hg] Comments: Patient Position: Sitting; Cuff Location: Left Arm; Cuff Size: Standard Weight 164 lb Height 54.5 in Body Mass Index Calculated 38.82 kg/m2 Body Surface Area Calculated 1.6 m2 :06 Weight 164 lb Height 54.5 in Body Mass Index Calculated 38.82 kg/m2 Body Surface Area Calculated 1.6 m2 :07 Weight 164 lb Height 54.5 in Body Mass Index Calculated 38.82 kg/m2 Body Surface Area Calculated 1.6 m2 :03 Temperature 97.4 f Comments: Method: Temporal Pulse 84 /min Comments: Pattern: Regular Respiration Rate 24 /min Comments: Pattern: Unlabored O2 SAT 96 % Comments: Room air BP Systolic 124 mm[Hg] Comments: Patient Position: Sitting; Cuff Location: Left Arm; Cuff Size: Standard BP Diastolic 84 mm[Hg] Comments: Patient Position: Sitting; Cuff Location: Left Arm; Cuff Size: Standard Weight 162 lb Height 54.5 in Body Mass Index Calculated 38.35 kg/m2 Body Surface Area Calculated 1.59 m2 :01 Weight 156 lb Height 54.5 in Body Mass Index Calculated 36.93 kg/m2 Body Surface Area Calculated 1.57 m2 :29 Temperature 97.6 f Comments: Method: Temporal Pulse 90 /min Comments: Pattern: Regular Respiration Rate 16 /min Comments: Pattern: Unlabored O2 SAT 96 % Comments: Room air BP Systolic 122 mm[Hg] Comments: Patient Position: Sitting; Cuff Location: Left Arm; Cuff Size: Standard BP Diastolic 74 mm[Hg] Comments: Patient Position: Sitting; Cuff Location: Left Arm; Cuff Size: Standard Weight 158 lb Height 54.5 in Body Mass Index Calculated 37.4 kg/m2 Body Surface Area Calculated 1.58 m2 :55 Temperature 97.9 f Comments: Method: Temporal Pulse 84 /min Comments: Pattern: Regular Respiration Rate 26 /min Comments: Pattern: Labored O2 SAT 96 % Comments: Room air BP Systolic 124 mm[Hg] Comments: Patient Position: Sitting; Cuff Location: Left Arm; Cuff Size: Standard BP Diastolic 80 mm[Hg] Comments: Patient Position: Sitting; Cuff Location: Left Arm; Cuff Size: Standard Weight 155 lb Height 54.5 in Body Mass Index Calculated 36.69 kg/m2 Body Surface Area Calculated 1.56 m2 :42 Temperature 97.6 f Comments: Method: Temporal Pulse 76 /min Comments: Pattern: Regular Respiration Rate 20 /min Comments: Pattern: Unlabored O2 SAT 97 % Comments: Room air BP Systolic 114 mm[Hg] Comments: Patient Position: Sitting; Cuff Location: Left Arm; Cuff Size: Standard BP Diastolic 70 mm[Hg] Comments: Patient Position: Sitting; Cuff Location: Left Arm; Cuff Size: Standard Weight 152 lb Height 54.5 in Body Mass Index Calculated 35.98 kg/m2 Body Surface Area Calculated 1.55 m2 :15 Temperature 97.6 f Comments: Method: Temporal Pulse 76 /min Comments: Pattern: Regular Respiration Rate 24 /min Comments: Pattern: Unlabored O2 SAT 96 % Comments: Room air BP Systolic 122 mm[Hg] Comments: Patient Position: Sitting; Cuff Location: Left Arm; Cuff Size: Standard BP Diastolic 80 mm[Hg] Comments: Patient Position: Sitting; Cuff Location: Left Arm; Cuff Size: Standard Weight 154 lb Height 54.5 in Body Mass Index Calculated 36.45 kg/m2 Body Surface Area Calculated 1.56 m2 :07 Temperature 97.6 f Comments: Method: Temporal Pulse 86 /min Comments: Pattern: Regular Respiration Rate 24 /min Comments: Pattern: Unlabored O2 SAT 98 % Comments: Room air BP Systolic 110 mm[Hg] Comments: Patient Position: Sitting; Cuff Location: Left Arm; Cuff Size: Standard BP Diastolic 74 mm[Hg] Comments: Patient Position: Sitting; Cuff Location: Left Arm; Cuff Size: Standard Weight 149 lb Height 54.5 in Body Mass Index Calculated 35.27 kg/m2 Body Surface Area Calculated 1.54 m2 :20 Temperature 97.6 f Comments: Method: Temporal Pulse 78 /min Comments: Pattern: Regular Respiration Rate 18 /min Comments: Pattern: Unlabored O2 SAT 97 % Comments: Room air BP Systolic 110 mm[Hg] Comments: Patient Position: Sitting; Cuff Location: Left Arm; Cuff Size: Standard BP Diastolic 70 mm[Hg] Comments: Patient Position: Sitting; Cuff Location: Left Arm; Cuff Size: Standard Weight 149 lb Height 55 in Body Mass Index Calculated 34.63 kg/m2 Body Surface Area Calculated 1.55 m2 :46 Temperature 97 f Comments: Method: Temporal Pulse 88 /min Comments: Pattern: Regular Respiration Rate 24 /min Comments: Pattern: Unlabored O2 SAT 97 % Comments: Room air BP Systolic 122 mm[Hg] Comments: Patient Position: Sitting; Cuff Location: Left Arm; Cuff Size: Standard BP Diastolic 76 mm[Hg] Comments: Patient Position: Sitting; Cuff Location: Left Arm; Cuff Size: Standard Weight 149.0375 lb Height 55 in Body Mass Index Calculated 34.64 kg/m2 Body Surface Area Calculated 1.55 m2 :45 Temperature 97.6 f Comments: Method: Temporal Pulse 90 /min Comments: Pattern: Regular Respiration Rate 24 /min Comments: Pattern: Unlabored O2 SAT 97 % Comments: Room air BP Systolic 122 mm[Hg] Comments: Patient Position: Sitting; Cuff Location: Left Arm; Cuff Size: Standard BP Diastolic 80 mm[Hg] Comments: Patient Position: Sitting; Cuff Location: Left Arm; Cuff Size: Standard Weight 150 lb Height 55 in Body Mass Index Calculated 34.86 kg/m2 Body Surface Area Calculated 1.55 m2 :58 Temperature 97.6 f Comments: Method: Temporal Pulse 74 /min Comments: Pattern: Regular Respiration Rate 18 /min Comments: Pattern: Unlabored O2 SAT 97 % Comments: Room air BP Systolic 120 mm[Hg] Comments: Patient Position: Sitting; Cuff Location: Left Arm; Cuff Size: Standard BP Diastolic 80 mm[Hg] Comments: Patient Position: Sitting; Cuff Location: Left Arm; Cuff Size: Standard Weight 150 lb Height 55 in Body Mass Index Calculated 34.86 kg/m2 Body Surface Area Calculated 1.55 m2 :54 Pulse 95 /min Comments: Pattern: Regular Respiration Rate 16 /min Comments: Pattern: Unlabored O2 SAT 98 % Comments: Room air BP Systolic 122 mm[Hg] Comments: Patient Position: Sitting; Cuff Location: Left Arm; Cuff Size: Standard BP Diastolic 68 mm[Hg] Comments: Patient Position: Sitting; Cuff Location: Left Arm; Cuff Size: Standard Weight 152.6 lb Height 55 in Body Mass Index Calculated 35.47 kg/m2 Body Surface Area Calculated 1.56 m2 :04 Temperature 98.7 f Comments: Method: Temporal Pulse 79 /min Comments: Pattern: Regular Respiration Rate 16 /min Comments: Pattern: Unlabored O2 SAT 98 % Comments: Room air BP Systolic 118 mm[Hg] Comments: Patient Position: Sitting; Cuff Location: Left Arm; Cuff Size: Standard BP Diastolic 70 mm[Hg] Comments: Patient Position: Sitting; Cuff Location: Left Arm; Cuff Size: Standard Weight 151.6 lb Height 55 in Body Mass Index Calculated 35.23 kg/m2 Body Surface Area Calculated 1.56 m2 :51 Temperature 98.2 f Comments: Method: Temporal Pulse 72 /min Comments: Pattern: Regular Respiration Rate 16 /min Comments: Pattern: Unlabored O2 SAT 98 % Comments: Room air BP Systolic 124 mm[Hg] Comments: Patient Position: Sitting; Cuff Location: Left Arm; Cuff Size: Standard BP Diastolic 78 mm[Hg] Comments: Patient Position: Sitting; Cuff Location: Left Arm; Cuff Size: Standard Weight 152 lb Height 55 in Body Mass Index Calculated 35.33 kg/m2 Body Surface Area Calculated 1.56 m2 :31 Temperature 97.6 f Comments: Method: Temporal Pulse 80 /min Comments: Pattern: Regular Respiration Rate 20 /min Comments: Pattern: Unlabored O2 SAT 98 % Comments: Room air BP Systolic 100 mm[Hg] Comments: Patient Position: Sitting; Cuff Location: Left Arm; Cuff Size: Standard BP Diastolic 70 mm[Hg] Comments: Patient Position: Sitting; Cuff Location: Left Arm; Cuff Size: Standard Weight 161 lb Height 55 in Body Mass Index Calculated 37.42 kg/m2 Body Surface Area Calculated 1.6 m2 [id number] Temperature 97.4 f Comments: Method: Tympanic Pulse 77 /min Comments: Pattern: Regular Respiration Rate 18 /min Comments: Pattern: Unlabored O2 SAT 97 % Comments: Room air BP Systolic 90 mm[Hg] Comments: Patient Position: Sitting; Cuff Location: Left Arm; Cuff Size: Standard BP Diastolic 62 mm[Hg] Comments: Patient Position: Sitting; Cuff Location: Left Arm; Cuff Size: Standard Weight 161 lb Height 55 in Body Mass Index Calculated 37.42 kg/m2 Body Surface Area Calculated 1.6 m2 :01 Temperature 97.4 f Comments: Method: Temporal Pulse 90 /min Comments: Pattern: Regular Respiration Rate 24 /min Comments: Pattern: Unlabored O2 SAT 98 % Comments: Room air BP Systolic 116 mm[Hg] Comments: Patient Position: Sitting; Cuff Location: Left Arm; Cuff Size: Standard BP Diastolic 74 mm[Hg] Comments: Patient Position: Sitting; Cuff Location: Left Arm; Cuff Size: Standard Weight 161 lb Height 55 in Body Mass Index Calculated 37.42 kg/m2 Body Surface Area Calculated 1.6 m2 :01 Temperature 97.7 f Comments: Method: Oral Pulse 98 /min Comments: Pattern: Regular Respiration Rate 18 /min Comments: Pattern: Unlabored O2 SAT 98 % Comments: Room air BP Systolic 116 mm[Hg] Comments: Patient Position: Sitting; Cuff Location: Left Arm; Cuff Size: Standard BP Diastolic 62 mm[Hg] Comments: Patient Position: Sitting; Cuff Location: Left Arm; Cuff Size: Standard Weight 163 lb Height 55 in Body Mass Index Calculated 37.88 kg/m2 Body Surface Area Calculated 1.61 m2 :00 Temperature 98.4 f Comments: Method: Oral Pulse 110 /min Comments: Pattern: Regular Respiration Rate 18 /min O2 SAT 97 % Comments: Room air BP Systolic 100 mm[Hg] Comments: Patient Position: Sitting; Cuff Location: Left Arm; Cuff Size: Standard BP Diastolic 60 mm[Hg] Comments: Patient Position: Sitting; Cuff Location: Left Arm; Cuff Size: Standard Weight 163 lb Height 55 in Body Mass Index Calculated 37.88 kg/m2 Body Surface Area Calculated 1.61 m2 [id number] Temperature 97.5 f Comments: Method: Temporal Pulse 74 /min Comments: Pattern: Regular Respiration Rate 16 /min Comments: Pattern: Unlabored O2 SAT 97 % Comments: Room air BP Systolic 116 mm[Hg] Comments: Patient Position: Sitting; Cuff Location: Left Arm; Cuff Size: Standard BP Diastolic 72 mm[Hg] Comments: Patient Position: Sitting; Cuff Location: Left Arm; Cuff Size: Standard Weight 163 lb Height 55 in Body Mass Index Calculated 37.88 kg/m2 Body Surface Area Calculated 1.61 m2 [id number] Temperature 98.2 f Comments: Method: Oral Pulse 90 /min Comments: Pattern: Irregular Respiration Rate 20 /min Comments: Pattern: Unlabored BP Systolic 114 mm[Hg] Comments: Patient Position: Sitting; Cuff Location: Left Arm; Cuff Size: Standard BP Diastolic 74 mm[Hg] Comments: Patient Position: Sitting; Cuff Location: Left Arm; Cuff Size: Standard Weight 162 lb Height 55 in Body Mass Index Calculated 37.65 kg/m2 Body Surface Area Calculated 1.6 m2 [id number] Pulse 92 /min Comments: Pattern: Regular Respiration Rate 16 /min Comments: Pattern: Unlabored O2 SAT 98 % Comments: Room air BP Systolic 108 mm[Hg] Comments: Patient Position: Sitting; Cuff Location: Left Arm; Cuff Size: Standard BP Diastolic 68 mm[Hg] Comments: Patient Position: Sitting; Cuff Location: Left Arm; Cuff Size: Standard Weight 162 lb Height 55 in Body Mass Index Calculated 37.65 kg/m2 Body Surface Area Calculated 1.6 m2 [id number] Temperature 97.8 f Comments: Method: Oral Pulse 74 /min Comments: Pattern: Irregular Respiration Rate 20 /min Comments: Pattern: Unlabored BP Systolic 114 mm[Hg] Comments: Patient Position: Sitting; Cuff Location: Left Arm; Cuff Size: Standard BP Diastolic 70 mm[Hg] Comments: Patient Position: Sitting; Cuff Location: Left Arm; Cuff Size: Standard Weight 162 lb Height 55 in Body Mass Index Calculated 37.65 kg/m2 Body Surface Area Calculated 1.6 m2 :50 Temperature 97.6 f Comments: Method: Oral Pulse 84 /min Comments: Pattern: Regular Respiration Rate 20 /min Comments: Pattern: Unlabored BP Systolic 110 mm[Hg] Comments: Patient Position: Sitting; Cuff Location: Left Arm; Cuff Size: Standard BP Diastolic 74 mm[Hg] Comments: Patient Position: Sitting; Cuff Location: Left Arm; Cuff Size: Standard Weight 166 lb Height 55 in Body Mass Index Calculated 38.58 kg/m2 Body Surface Area Calculated 1.62 m2 :24 Temperature 97.6 f Comments: Method: Oral Pulse 78 /min Comments: Pattern: Regular Respiration Rate 20 /min Comments: Pattern: Unlabored BP Systolic 126 mm[Hg] Comments: Patient Position: Sitting; Cuff Location: Left Arm; Cuff Size: Standard BP Diastolic 78 mm[Hg] Comments: Patient Position: Sitting; Cuff Location: Left Arm; Cuff Size: Standard Weight 165 lb Height 55 in Body Mass Index Calculated 38.35 kg/m2 Body Surface Area Calculated 1.62 m2 :50 Temperature 98.2 f Comments: Method: Oral Pulse 78 /min Comments: Pattern: Regular Respiration Rate 20 /min Comments: Pattern: Unlabored BP Systolic 120 mm[Hg] Comments: Patient Position: Sitting; Cuff Location: Left Arm; Cuff Size: Standard BP Diastolic 78 mm[Hg] Comments: Patient Position: Sitting; Cuff Location: Left Arm; Cuff Size: Standard Weight 162 lb Height 55 in Body Mass Index Calculated 37.65 kg/m2 Body Surface Area Calculated 1.6 m2 :46 Temperature 97.2 f Comments: Method: Oral Pulse 64 /min Comments: Pattern: Regular Respiration Rate 16 /min Comments: Pattern: Unlabored BP Systolic 142 mm[Hg] Comments: Patient Position: Sitting; Cuff Location: Left Arm; Cuff Size: Standard BP Diastolic 76 mm[Hg] Comments: Patient Position: Sitting; Cuff Location: Left Arm; Cuff Size: Standard Weight 163 lb Height 55 in Body Mass Index Calculated 37.88 kg/m2 Body Surface Area Calculated 1.61 m2 :26 Temperature 98.2 f Comments: Method: Oral Pulse 80 /min Comments: Pattern: Regular Respiration Rate 16 /min Comments: Pattern: Unlabored BP Systolic 130 mm[Hg] Comments: Patient Position: Sitting; Cuff Location: Left Arm; Cuff Size: Standard BP Diastolic 80 mm[Hg] Comments: Patient Position: Sitting; Cuff Location: Left Arm; Cuff Size: Standard Weight 163 lb Height 55 in Body Mass Index Calculated 37.88 kg/m2 Body Surface Area Calculated 1.61 m2 :06 Temperature 98 f Comments: Method: Oral Pulse 62 /min Comments: Pattern: Regular Respiration Rate 20 /min Comments: Pattern: Unlabored BP Systolic 126 mm[Hg] Comments: Patient Position: Sitting; Cuff Location: Left Arm; Cuff Size: Standard BP Diastolic 78 mm[Hg] Comments: Patient Position: Sitting; Cuff Location: Left Arm; Cuff Size: Standard Weight 163 lb Height 55 in Body Mass Index Calculated 37.88 kg/m2 Body Surface Area Calculated 1.61 m2 :37 Temperature 97.9 f Comments: Method: Oral Pulse 72 /min Comments: Pattern: Regular Respiration Rate 20 /min Comments: Pattern: Unlabored BP Systolic 142 mm[Hg] Comments: Patient Position: Sitting; Cuff Location: Left Arm; Cuff Size: Standard BP Diastolic 80 mm[Hg] Comments: Patient Position: Sitting; Cuff Location: Left Arm; Cuff Size: Standard Weight 163 lb Height 55 in Body Mass Index Calculated 37.88 kg/m2 Body Surface Area Calculated 1.61 m2 :28 Temperature 98 f Comments: Method: Oral Pulse 88 /min Comments: Pattern: Regular O2 SAT 95 % Comments: Room air BP Systolic 126 mm[Hg] Comments: Patient Position: Sitting; Cuff Location: Left Arm; Cuff Size: Standard BP Diastolic 72 mm[Hg] Comments: Patient Position: Sitting; Cuff Location: Left Arm; Cuff Size: Standard Weight 169 lb Height 55 in Body Mass Index Calculated 39.28 kg/m2 Body Surface Area Calculated 1.63 m2 :01 Temperature 98.1 f Comments: Method: Oral Pulse 56 /min Comments: Pattern: Regular Respiration Rate 20 /min Comments: Pattern: Unlabored BP Systolic 142 mm[Hg] Comments: Patient Position: Sitting; Cuff Location: Left Arm; Cuff Size: Standard BP Diastolic 76 mm[Hg] Comments: Patient Position: Sitting; Cuff Location: Left Arm; Cuff Size: Standard Weight 169 lb Height 55 in Body Mass Index Calculated 39.28 kg/m2 Body Surface Area Calculated 1.63 m2 :29 Temperature 98.3 f Comments: Method: Oral Pulse 62 /min Comments: Pattern: Regular Respiration Rate 16 /min Comments: Pattern: Unlabored BP Systolic 122 mm[Hg] Comments: Patient Position: Sitting; Cuff Location: Left Arm; Cuff Size: Standard BP Diastolic 64 mm[Hg] Comments: Patient Position: Sitting; Cuff Location: Left Arm; Cuff Size: Standard Weight 168.7 lb Height 55 in Body Mass Index Calculated 39.21 kg/m2 Body Surface Area Calculated 1.63 m2 :40 Temperature 97.5 f Comments: Method: Oral Pulse 58 /min Comments: Pattern: Regular Respiration Rate 17 /min O2 SAT 95 % Comments: Room air BP Systolic 130 mm[Hg] Comments: Patient Position: Sitting; Cuff Location: Left Arm; Cuff Size: Standard BP Diastolic 76 mm[Hg] Comments: Patient Position: Sitting; Cuff Location: Left Arm; Cuff Size: Standard Weight 166 lb Height 55 in Body Mass Index Calculated 38.58 kg/m2 Body Surface Area Calculated 1.62 m2 :46 Temperature 98.2 f Comments: Method: Oral Pulse 64 /min Comments: Pattern: Regular Respiration Rate 16 /min Comments: Pattern: Unlabored BP Systolic 128 mm[Hg] Comments: Patient Position: Sitting; Cuff Location: Left Arm; Cuff Size: Standard BP Diastolic 64 mm[Hg] Comments: Patient Position: Sitting; Cuff Location: Left Arm; Cuff Size: Standard Weight 166 lb :01 Temperature 97.9 f Comments: Method: Oral Pulse 62 /min Comments: Pattern: Regular Respiration Rate 24 /min Comments: Pattern: Unlabored BP Systolic 136 mm[Hg] Comments: Patient Position: Sitting; Cuff Location: Left Arm; Cuff Size: Standard BP Diastolic 74 mm[Hg] Comments: Patient Position: Sitting; Cuff Location: Left Arm; Cuff Size: Standard Weight 168 lb Height 57 in Body Mass Index Calculated 36.35 kg/m2 Body Surface Area Calculated 1.67 m2 :34 Temperature 97.8 f Pulse 64 /min Comments: Pattern: Regular Respiration Rate 16 /min Comments: Pattern: Unlabored BP Systolic 138 mm[Hg] Comments: Patient Position: Sitting; Cuff Location: Left Arm; Cuff Size: Large BP Diastolic 72 mm[Hg] Comments: Patient Position: Sitting; Cuff Location: Left Arm; Cuff Size: Large Weight 165 lb Height 57 in Body Mass Index Calculated 35.71 kg/m2 Body Surface Area Calculated 1.66 m2 :55 Temperature 98.7 f Comments: Method: Oral Pulse 64 /min Comments: Pattern: Regular Respiration Rate 26 /min Comments: Pattern: Labored O2 SAT 94 % Comments: Room air BP Systolic 140 mm[Hg] Comments: Patient Position: Sitting; Cuff Location: Left Arm; Cuff Size: Standard BP Diastolic 78 mm[Hg] Comments: Patient Position: Sitting; Cuff Location: Left Arm; Cuff Size: Standard Weight 165 lb Height 57 in Body Mass Index Calculated 35.71 kg/m2 Body Surface Area Calculated 1.66 m2 :04 Temperature 97.2 f Comments: Method: Oral Pulse 58 /min Comments: Pattern: Regular Respiration Rate 17 /min Comments: Pattern: Unlabored O2 SAT 97 % Comments: Room air BP Systolic 122 mm[Hg] Comments: Patient Position: Sitting; Cuff Location: Left Arm; Cuff Size: Standard BP Diastolic 72 mm[Hg] Comments: Patient Position: Sitting; Cuff Location: Left Arm; Cuff Size: Standard Weight 168.4375 lb Height 57 in Body Mass Index Calculated 36.45 kg/m2 Body Surface Area Calculated 1.67 m2 :32 Temperature 97.1 f Comments: Method: Oral Pulse 52 /min Comments: Pattern: Regular Respiration Rate 18 /min Comments: Pattern: Unlabored O2 SAT 95 % Comments: Room air BP Systolic 138 mm[Hg] Comments: Patient Position: Sitting; Cuff Location: Left Arm; Cuff Size: Standard BP Diastolic 70 mm[Hg] Comments: Patient Position: Sitting; Cuff Location: Left Arm; Cuff Size: Standard Weight 168.4375 lb Height 57 in Body Mass Index Calculated 36.45 kg/m2 Body Surface Area Calculated 1.67 m2 :57 Temperature 97.4 f Comments: Method: Oral Pulse 68 /min Comments: Pattern: Regular Respiration Rate 20 /min Comments: Pattern: Unlabored O2 SAT 94 % Comments: Room air BP Systolic 122 mm[Hg] Comments: Patient Position: Sitting; Cuff Location: Left Arm; Cuff Size: Standard BP Diastolic 76 mm[Hg] Comments: Patient Position: Sitting; Cuff Location: Left Arm; Cuff Size: Standard Weight 203 lb :38 Pulse 72 /min Comments: Pattern: Regular Respiration Rate 20 /min Comments: Pattern: Unlabored BP Systolic 118 mm[Hg] Comments: Patient Position: Sitting; Cuff Location: Left Arm; Cuff Size: Large BP Diastolic 76 mm[Hg] Comments: Patient Position: Sitting; Cuff Location: Left Arm; Cuff Size: Large Weight 203 lb :41 Temperature 98.2 f Comments: Method: Oral Pulse 74 /min Comments: Pattern: Regular Respiration Rate 20 /min Comments: Pattern: Unlabored BP Systolic 120 mm[Hg] Comments: Patient Position: Sitting; Cuff Location: Left Arm; Cuff Size: Standard BP Diastolic 80 mm[Hg] Comments: Patient Position: Sitting; Cuff Location: Left Arm; Cuff Size: Standard Weight 203 lb :34 Temperature 98.7 f Comments: Method: Oral Pulse 60 /min Comments: Pattern: Regular Respiration Rate 22 /min Comments: Pattern: Unlabored BP Systolic 130 mm[Hg] Comments: Patient Position: Sitting; Cuff Location: Left Arm; Cuff Size: Large BP Diastolic 62 mm[Hg] Comments: Patient Position: Sitting; Cuff Location: Left Arm; Cuff Size: Large Weight 227 lb Height 0 in Head Circumference 0.00 cm :10 Pulse 72 /min Comments: Pattern: Irregular Respiration Rate 28 /min Comments: Pattern: Labored O2 SAT 92 % Comments: Room air BP Systolic 120 mm[Hg] Comments: Patient Position: Sitting; Cuff Location: Left Arm; Cuff Size: Standard BP Diastolic 78 mm[Hg] Comments: Patient Position: Sitting; Cuff Location: Left Arm; Cuff Size: Standard Weight 238 lb Height 0 in Head Circumference 0.00 cm :42 Pulse 70 /min Comments: Pattern: Regular Respiration Rate 26 /min Comments: Pattern: Labored BP Systolic 128 mm[Hg] Comments: Patient Position: Sitting; Cuff Location: Left Arm; Cuff Size: Standard BP Diastolic 78 mm[Hg] Comments: Patient Position: Sitting; Cuff Location: Left Arm; Cuff Size: Standard Weight 234 lb Height 0 in Head Circumference 0.00 cm :21 Pulse 74 /min Comments: Pattern: Regular Respiration Rate 24 /min Comments: Pattern: Labored O2 SAT 94 % Comments: Room air BP Systolic 124 mm[Hg] Comments: Patient Position: Sitting; Cuff Location: Left Arm; Cuff Size: Large BP Diastolic 80 mm[Hg] Comments: Patient Position: Sitting; Cuff Location: Left Arm; Cuff Size: Large Weight 245 lb Height 0 in Head Circumference 0.00 cm :34 Pulse 68 /min Comments: Pattern: Regular Respiration Rate 26 /min Comments: Pattern: Labored O2 SAT 96 % Comments: Room air BP Systolic 126 mm[Hg] Comments: Patient Position: Sitting; Cuff Location: Left Arm; Cuff Size: Large BP Diastolic 84 mm[Hg] Comments: Patient Position: Sitting; Cuff Location: Left Arm; Cuff Size: Large Weight 245 lb Height 0 in Head Circumference 0.00 cm :34 Temperature 97.9 f Comments: Method: Oral Pulse 58 /min Comments: Pattern: Regular Respiration Rate 20 /min Comments: Pattern: Unlabored O2 SAT 93 % Comments: Room air BP Systolic 96 mm[Hg] Comments: Patient Position: Sitting; Cuff Location: Left Arm; Cuff Size: Large BP Diastolic 50 mm[Hg] Comments: Patient Position: Sitting; Cuff Location: Left Arm; Cuff Size: Large Weight 243.5625 lb Height 57.5 in Body Mass Index Calculated 51.79 kg/m2 Body Surface Area Calculated 1.97 m2 Head Circumference 0.00 cm :54 Temperature 98.8 f Comments: Method: Oral Pulse 68 /min Comments: Pattern: Irregular Respiration Rate 24 /min Comments: Pattern: Wheezing O2 SAT 95 % Comments: Room air BP Systolic 130 mm[Hg] Comments: Patient Position: Sitting; Cuff Location: Left Arm; Cuff Size: Large BP Diastolic 84 mm[Hg] Comments: Patient Position: Sitting; Cuff Location: Left Arm; Cuff Size: Large Weight 0 lb Height 0 in Head Circumference 0.00 cm :12 Pulse 109 /min Comments: Pattern: Regular Respiration Rate 30 /min Comments: Pattern: Labored O2 SAT 94 % Comments: Room air BP Systolic 160 mm[Hg] Comments: Patient Position: Sitting; Cuff Location: Left Arm; Cuff Size: Large BP Diastolic 90 mm[Hg] Comments: Patient Position: Sitting; Cuff Location: Left Arm; Cuff Size: Large Weight 241 lb Height 0 in Head Circumference 0.00 cm :31 Temperature 97.6 f Comments: Method: Oral Pulse 76 /min Comments: Pattern: Regular Respiration Rate 24 /min Comments: Pattern: Labored BP Systolic 126 mm[Hg] Comments: Patient Position: Sitting; Cuff Location: Left Arm; Cuff Size: Large BP Diastolic 82 mm[Hg] Comments: Patient Position: Sitting; Cuff Location: Left Arm; Cuff Size: Large Weight 235 lb Height 0 in Head Circumference 0.00 cm :36 Temperature 97.6 f Comments: Method: Oral Pulse 60 /min Comments: Pattern: Regular Respiration Rate 18 /min Comments: Pattern: Unlabored O2 SAT 94 % Comments: Room air BP Systolic 126 mm[Hg] Comments: Patient Position: Sitting; Cuff Location: Left Arm; Cuff Size: Large BP Diastolic 84 mm[Hg] Comments: Patient Position: Sitting; Cuff Location: Left Arm; Cuff Size: Large Weight 230 lb Height 0 in Head Circumference 0.00 cm :49 Temperature 98.2 f Comments: Method: Oral Pulse 78 /min Comments: Pattern: Regular Respiration Rate 18 /min Comments: Pattern: Unlabored BP Systolic 124 mm[Hg] Comments: Patient Position: Sitting; Cuff Location: Left Arm; Cuff Size: Large BP Diastolic 82 mm[Hg] Comments: Patient Position: Sitting; Cuff Location: Left Arm; Cuff Size: Large Weight 225 lb Height 0 in Head Circumference 0.00 cm :30 Temperature 97.8 f Comments: Method: Oral Pulse 76 /min Comments: Pattern: Regular Respiration Rate 22 /min Comments: Pattern: Labored BP Systolic 118 mm[Hg] Comments: Patient Position: Sitting; Cuff Location: Left Arm; Cuff Size: Standard BP Diastolic 78 mm[Hg] Comments: Patient Position: Sitting; Cuff Location: Left Arm; Cuff Size: Standard Weight 230 lb Height 0 in Head Circumference 0.00 cm :42 Temperature 98.4 f Comments: Method: Oral Pulse 72 /min Comments: Pattern: Regular Respiration Rate 20 /min Comments: Pattern: Unlabored BP Systolic 122 mm[Hg] Comments: Patient Position: Sitting; Cuff Location: Left Arm; Cuff Size: Standard BP Diastolic 84 mm[Hg] Comments: Patient Position: Sitting; Cuff Location: Left Arm; Cuff Size: Standard Weight 224 lb Height 0 in Head Circumference 0.00 cm :20 Temperature 97.6 f Comments: Method: Oral Pulse 70 /min Comments: Pattern: Regular Respiration Rate 20 /min Comments: Pattern: Unlabored BP Systolic 124 mm[Hg] Comments: Patient Position: Sitting; Cuff Location: Left Arm; Cuff Size: Standard BP Diastolic 76 mm[Hg] Comments: Patient Position: Sitting; Cuff Location: Left Arm; Cuff Size: Standard Weight 215 lb Height 0 in Head Circumference 0.00 cm :36 Temperature 97.7 f Comments: Method: Oral Pulse 70 /min Comments: Pattern: Regular Respiration Rate 20 /min Comments: Pattern: Unlabored BP Systolic 126 mm[Hg] Comments: Patient Position: Sitting; Cuff Location: Left Arm; Cuff Size: Standard BP Diastolic 84 mm[Hg] Comments: Patient Position: Sitting; Cuff Location: Left Arm; Cuff Size: Standard Weight 216 lb Height 0 in Head Circumference 0.00 cm :34 Temperature 97.8 f Comments: Method: Oral Pulse 68 /min Comments: Pattern: Regular Respiration Rate 20 /min Comments: Pattern: Unlabored BP Systolic 124 mm[Hg] Comments: Patient Position: Sitting; Cuff Location: Left Arm; Cuff Size: Standard BP Diastolic 76 mm[Hg] Comments: Patient Position: Sitting; Cuff Location: Left Arm; Cuff Size: Standard Weight 0 lb Height 0 in Head Circumference 0.00 cm :38 Temperature 98.5 f Comments: Method: Oral Pulse 64 /min Comments: Pattern: Regular Respiration Rate 20 /min Comments: Pattern: Unlabored BP Systolic 128 mm[Hg] Comments: Patient Position: Sitting; Cuff Location: Left Arm; Cuff Size: Standard BP Diastolic 76 mm[Hg] Comments: Patient Position: Sitting; Cuff Location: Left Arm; Cuff Size: Standard Weight 226.0625 lb Height 57 in Body Mass Index Calculated 48.92 kg/m2 Body Surface Area Calculated 1.89 m2 Head Circumference 0.00 cm :29 Temperature 98 f Comments: Method: Oral Pulse 76 /min Comments: Pattern: Regular Respiration Rate 20 /min Comments: Pattern: Unlabored BP Systolic 114 mm[Hg] Comments: Patient Position: Sitting; Cuff Location: Left Arm; Cuff Size: Standard BP Diastolic 76 mm[Hg] Comments: Patient Position: Sitting; Cuff Location: Left Arm; Cuff Size: Standard Weight 0 lb Height 0 in Head Circumference 0.00 cm :57 Temperature 98.5 f Comments: Method: Oral Pulse 60 /min Comments: Pattern: Regular Respiration Rate 18 /min Comments: Pattern: Undefined BP Systolic 110 mm[Hg] Comments: Patient Position: Sitting; Cuff Location: Right Arm; Cuff Size: Standard BP Diastolic 60 mm[Hg] Comments: Patient Position: Sitting; Cuff Location: Right Arm; Cuff Size: Standard Weight 0 lb Height 0 in Head Circumference 0.00 cm :21 Temperature 98.3 f Comments: Method: Oral Pulse 56 /min Comments: Pattern: Regular Respiration Rate 16 /min Comments: Pattern: Undefined BP Systolic 104 mm[Hg] Comments: Patient Position: Sitting; Cuff Location: Undefined; Cuff Size: Undefined BP Diastolic 54 mm[Hg] Comments: Patient Position: Sitting; Cuff Location: Undefined; Cuff Size: Undefined Weight 0 lb Height 0 in Head Circumference 0.00 cm :13 Pulse 72 /min Comments: Pattern: Regular Respiration Rate 16 /min Comments: Pattern: Unlabored BP Systolic 130 mm[Hg] Comments: Patient Position: Sitting; Cuff Location: Left Arm; Cuff Size: Standard BP Diastolic 84 mm[Hg] Comments: Patient Position: Sitting; Cuff Location: Left Arm; Cuff Size: Standard Weight 226.1875 lb Height 57 in Body Mass Index Calculated 48.95 kg/m2 Body Surface Area Calculated 1.9 m2 Head Circumference 0.00 cm :04 Temperature 98 f Comments: Method: Oral Pulse 68 /min Comments: Pattern: Regular Respiration Rate 20 /min Comments: Pattern: Unlabored BP Systolic 128 mm[Hg] Comments: Patient Position: Sitting; Cuff Location: Right Arm; Cuff Size: Standard BP Diastolic 68 mm[Hg] Comments: Patient Position: Sitting; Cuff Location: Right Arm; Cuff Size: Standard Weight 220 lb Height 0 in Head Circumference 0.00 cm Results Date Description Value Details 97-Fdj-269445:37 HgA1C , Office (40990) HgA1C , Office 5.8 % (Normal) Range: 4.6 - 7.1 2-Afu-706851:17 AMMONIA (17560) Comments: PATIENT NOT FASTINGPERFORMED BY: [employer] Technologyrp Fezuyxurkw5786 [facility] [id number] BY: CARMEN [employer] Hqxrkv1232 [facility] [id number] Ammonia, Plasma 46 ug/dL (Normal) Range: 19-87 2-Xol-135726:17 FOLIC ACID SERUM (10756) Comments: PATIENT NOT FASTINGPERFORMED BY: [employer] Technologyrp [address] [id number] BY: [facility]6370 [facility] [id number] Folate (Folic Acid), Serum >20.0 ng/mL (Normal) Comments: A serum folate concentration of less than 3.1 ng/mL isconsidered to represent clinical deficiency. 1-Tst-886079:17 Vitamin B-12 (cyanocobalamin) Comments: PATIENT NOT FASTINGPERFORMED BY: [address] [id number] BY: [place] 8553570 [facility] [id number] (33593) Vitamin B12 738 pg/mL (Normal) Range: 232-1245 7-Knf-055732:17 Methymalonic Acid, Serum Comments: PATIENT NOT FASTINGPERFORMED BY: [address] [id number] BY: [place] 8553570 [facility] [id number] (24656) Disclaimer: [facility] (Normal) Comments: This test was developed and its performance characteristicsdetermined by [employer]. It has not been cleared or approvedby the Food and Drug Administration. Methylmalonic Acid, Serum 225 nmol/L (Normal) Range: 0-378 6-Jgd-215435:17 T4, FREE (THYROXINE) Comments: PATIENT NOT FASTINGPERFORMED BY: [address] [id number] BY: [place] 8553570 [facility] [id number] (86552) T4,Free(Direct) 1.71 ng/dL (Normal) Range: 0.82-1.77 8-Kjr-875773:17 T3, FREE (TRIDOTHYRONINE) Comments: PATIENT NOT FASTINGPERFORMED BY: [address] [id number] BY: [place] 8553570 [facility] [id number] (40986) Triiodothyronine (T3), Free 3.7 pg/mL (Normal) Range: 2.0-4.4 2-Bgv-123909:17 CALCIFIDIOL (56842) VIT D Comments: PATIENT NOT FASTINGPERFORMED BY: [employer] [id number] BY: [employer] Fdfwre3935 [facility] [id number] 25 Vitamin D, 25-Hydroxy 49.4 ng/mL (Normal) Range: 30.0-100.0 Comments: Vitamin D deficiency has been defined by the [place] of[place]icine and an Endocrine Society practice guideline as alevel of serum 25-OH vitamin D less than 20 ng/mL (1,2).The Endocrine Society went on to further define vitamin Dinsufficiency as a level between 21 and 29 ng/mL (2).1. IOM ([place] of Medicine). 2010. Dietary reference intakes for calcium and D. [place]: The National Academies Press.2. Domingo MF, Gregor SMITH, Joaquin GARZA, et al. Evaluation, treatment, and prevention of vitamin D deficiency: an Endocrine Society clinical practice guideline. JCEM. 2010; 96(7):1911-30. 8-Uyq-917873:17 Hemoglobin Glyclated (HGB Comments: PATIENT NOT FASTINGPERFORMED BY: [employer] [id number] BY: [facility] TechnologyKindred Hospital at RahwayVkgvpf3490 [facility] [id number] A1C) (01726) Hemoglobin A1c 5.7 % (Abnormal) Range: 4.8-5.6 Comments: . Pre-diabetes: 5.7 - 6.4 Diabetes: >6.4 Glycemic control for adults with diabetes: <7.0 29-Yfg-022018:35 Microscopic Examination Comments: PATIENT NOT FASTINGPERFORMED BY: [employer] Mperoa9477 [facility] [id number] Bacteria Few (Normal) Mucus Threads Present (Normal) Epithelial Cells (non renal) 0-10 {/hpf} (Normal) Range: 0 - 10 RBC 0-2 {/hpf} (Normal) Range: 0 - 2 WBC 11-30 {/hpf} (Abnormal) Range: 0 - 5 71-Trt-911535:35 MICROALBUMIN: CREATININE RATIO Comments: PATIENT NOT FASTINGPERFORMED BY: [facility]6370 [facility] [id number] (96753) AND (25485) Alb/Creat Ratio 10.5 {mg/g_creat} (Normal) Range: 0.0-30.0 Albumin, Urine 12.6 ug/mL (Normal) Creatinine, Urine 120.2 mg/dL (Normal) 37-Jdn-203155:35 URINALYSIS (94852) Comments: PATIENT NOT FASTINGPERFORMED BY: [facility]6370 [facility] [id number] Microscopic Examination See below: (Normal) Comments: Microscopic was indicated and was performed. Nitrite, Urine Negative (Normal) Urobilinogen,Semi-Qn 0.2 mg/dL (Normal) Range: 0.2-1.0 Bilirubin Negative (Normal) Occult Blood Trace (Abnormal) Ketones Negative (Normal) Glucose Negative (Normal) Protein Negative (Normal) WBC Esterase 2+ (Abnormal) Appearance Cloudy (Abnormal) Urine-Color Yellow (Normal) pH 5.5 (Normal) Range: 5.0-7.5 Specific [place] 1.018 (Normal) Range: 1.005-1.030 89-Tds-057125:35 CBC WITH MANUAL DIFF Comments: PATIENT NOT FASTINGPERFORMED BY: [facility]6370 [facility] [id number] Information: NURSE DRAW (36928) Immature Grans (Abs) 0.0 {x10E3/uL} (Normal) Range: 0.0-0.1 Immature Granulocytes 0 % (Normal) Baso (Absolute) 0.0 {x10E3/uL} (Normal) Range: 0.0-0.2 Eos (Absolute) 0.1 {x10E3/uL} (Normal) Range: 0.0-0.4 Monocytes(Absolute) 0.3 {x10E3/uL} (Normal) Range: 0.1-0.9 Lymphs (Absolute) 1.7 {x10E3/uL} (Normal) Range: 0.7-3.1 Neutrophils (Absolute) 2.3 {x10E3/uL} (Normal) Range: 1.4-7.0 Basos 0 % (Normal) Eos 3 % (Normal) Monocytes 7 % (Normal) Lymphs 38 % (Normal) Neutrophils 52 % (Normal) Platelets 225 {x10E3/uL} (Normal) Range: 150-379 RDW 13.7 % (Normal) Range: 12.3-15.4 MCHC 32.9 g/dL (Normal) Range: 31.5-35.7 MCH 30.8 pg (Normal) Range: 26.6-33.0 MCV 93 fL (Normal) Range: 79-97 Hematocrit 41.0 % (Normal) Range: 34.0-46.6 Hemoglobin 13.5 g/dL (Normal) Range: 11.1-15.9 RBC 4.39 {x10E6/uL} (Normal) Range: 3.77-5.28 WBC 4.5 {x10E3/uL} (Normal) Range: 3.4-10.8 52-Clk-529267:35 Metabolic Panel, Comprehensive Comments: PATIENT NOT FASTINGPERFORMED BY: [facility]CoKindred Hospital at RahwayDorxwr8531 [facility] [id number] (95258) ALT (SGPT) 25 [iU]/L (Normal) Range: 0-32 AST (SGOT) 25 [iU]/L (Normal) Range: 0-40 Alkaline Phosphatase, S 47 [iU]/L (Normal) Range: 39-117 Bilirubin, Total 0.3 mg/dL (Normal) Range: 0.0-1.2 A/G Ratio 1.7 (Normal) Range: 1.2-2.2 Globulin, Total 2.5 g/dL (Normal) Range: 1.5-4.5 Albumin, Serum 4.2 g/dL (Normal) Range: 3.6-4.8 Protein, Total, Serum 6.7 g/dL (Normal) Range: 6.0-8.5 Calcium, Serum 9.0 mg/dL (Normal) Range: 8.7-10.3 Carbon Dioxide, Total 25 mmol/L (Normal) Range: 18-29 Chloride, Serum 101 mmol/L (Normal) Range: 96-106 Potassium, Serum 4.5 mmol/L (Normal) Range: 3.5-5.2 Sodium, Serum 145 mmol/L (Abnormal) Range: 134-144 BUN/Creatinine Ratio 16 (Normal) Range: 12-28 eGFR If Africn Am 109 mL/min/1.73 (Normal) eGFR If NonAfricn Am 95 mL/min/1.73 (Normal) Creatinine, Serum 0.61 mg/dL (Normal) Range: 0.57-1.00 BUN 10 mg/dL (Normal) Range: 8-27 Glucose, Serum 105 mg/dL (Abnormal) Range: 65-99 9-Fki-940250:58 HgA1C , Office (80843) HgA1C , Office 5.6 % (Normal) Range: 4.6 - 7.1 61-Ecf-419226:44 Basic Metabolic Profile (BMP) Comments: [facility] [address] [place], [place], [address] GAP 8 (Normal) Range: 5-15 CO2 29.0 mmol/L (Normal) Range: 21.0-32.0 CL 103 mmol/L (Normal) Range: 98-107 K 4.1 mmol/L (Normal) Range: 3.5-5.1 NA 140 mmol/L (Normal) Range: 136-145 CA 8.7 mg/dL (Normal) Range: 8.5-10.1 BUN/CRE 15.0 {RATIO} (Normal) Range: 10-20 EST GFR - AA 128 mL/min (Normal) Comments: GFR Calc EST GFR 106 mL/min (Normal) Comments: Non- GFR Calc CREAT,SERUM 0.60 mg/dL (Normal) Range: 0.55-1.02 Comments: The validity of the calculated GFR AND GFRAA in patients over70 years has not been determined. Clinical correlation isessential. BUN 9 mg/dL (Normal) Range: 7-18 GLU 95 mg/dL (Normal) Range: 70-110 6-Usq-863460:48 Basic Metabolic Profile (BMP) Comments: [facility] [address] [place], [place], [id number] GAP 7 (Normal) Range: 5-15 CO2 26.0 mmol/L (Normal) Range: 21.0-32.0 CL 108 mmol/L (Abnormal) Range: 98-107 K 4.1 mmol/L (Normal) Range: 3.5-5.1 NA 141 mmol/L (Normal) Range: 136-145 CA 8.1 mg/dL (Abnormal) Range: 8.5-10.1 BUN/CRE 16.5 {RATIO} (Normal) Range: 10-20 EST GFR - AA 143 mL/min (Normal) Comments: GFR Calc EST GFR 118 mL/min (Normal) Comments: Non- GFR Calc CREAT,SERUM 0.55 mg/dL (Normal) Range: 0.55-1.02 Comments: The validity of the calculated GFR AND GFRAA in patients over70 years has not been determined. Clinical correlation isessential. BUN 9 mg/dL (Normal) Range: 7-18 GLU 93 mg/dL (Normal) Range: 70-110 3-Fzx-970778:48 T4 Free Direct Comments: [facility] [address] [facility] [place], [address] T4 FREE DIRECT 1.18 ng/dL (Normal) Range: 0.76-1.46 2-Upy-773393:48 Thyroglobulin w/Anti-TG AB Comments: [facility] (refer to report for specific site)refer to report for address and phone number THYROGLOB 0.1 ng/mL (Abnormal) Range: 1.5-38.5 Comments: According to the National Academy of Clinical Biochemistry,the reference interval for Thyroglobulin (TG) should berelated to euthyroid patients and not for patients whounderwent thyroidectomy. TG refere nce intervals for thesepatients depend on the residual mass of the thyroid tissueleft after surgery. Establishing a post-operative baselineis recommended. The assay limit of quantitation is 0.1ng/mLThyr oglobulin measured by Annel Daisy ImmunometricAssayPerformed at: - [facility] [address] [id number] Director: Chato Irwin PhD, Phone: [phone] ANTI-TG AB < 1.0 {IU/mL} (Normal) Range: 0.0-0.9 Comments: Thyroglobulin Antibody measured by Annel CoulterMethodology 3-Bum-422119:48 Thyroid Stim Hormone (TSH) Comments: [facility] [address] [place], [address] TSH 0.03 {uIU/mL} (Abnormal) Range: 0.358-3.74 29-Xvv-004475:13 Vitamin B-12 Comments: PATIENT NOT FASTINGPERFORMED BY: [facility] Bmnrik2240 [facility]in [place] [id number] BY: [address] [id number] (cyanocobalamin) (21429) Vitamin B12 745 pg/mL (Normal) Range: 211-946 19-Gip-559320:13 Methymalonic Acid, Serum Comments: PATIENT NOT FASTINGPERFORMED BY: [facility] Xiyxik4952 [facility] [place] [id number] BY: [address] [id number] (82280) Methylmalonic Acid, Serum 230 nmol/L (Normal) Range: 0-378 81-Kmd-372501:13 RPR (RAPID PLASMA Comments: PATIENT NOT FASTINGPERFORMED BY: [facility] Mvzlrp7444 [facility]in [place] [id number] BY: [address] [id number] REAGIN) (56236) RPR Non Reactive (Normal) 18-Wjv-941932:13 Metabolic Panel, Comments: PATIENT NOT FASTINGPERFORMED BY: [facility] Ysmtbw4953 [facility] [place] [id number] BY: [address] [id number] Comprehensive (42880) ALT (SGPT) 18 [iU]/L (Normal) Range: 0-32 AST (SGOT) 22 [iU]/L (Normal) Range: 0-40 Alkaline Phosphatase, S 62 [iU]/L (Normal) Range: 39-117 Bilirubin, Total 0.4 mg/dL (Normal) Range: 0.0-1.2 A/G Ratio 1.7 (Normal) Range: 1.2-2.2 Globulin, Total 2.4 g/dL (Normal) Range: 1.5-4.5 Albumin, Serum 4.0 g/dL (Normal) Range: 3.6-4.8 Protein, Total, Serum 6.4 g/dL (Normal) Range: 6.0-8.5 Calcium, Serum 9.8 mg/dL (Normal) Range: 8.7-10.3 Carbon Dioxide, Total 26 mmol/L (Normal) Range: 18-29 Chloride, Serum 101 mmol/L (Normal) Range: 96-106 Potassium, Serum 4.3 mmol/L (Normal) Range: 3.5-5.2 Sodium, Serum 144 mmol/L (Normal) Range: 134-144 BUN/Creatinine Ratio 17 (Normal) Range: 12-28 eGFR If Africn Am 107 mL/min/1.73 (Normal) eGFR If NonAfricn Am 93 mL/min/1.73 (Normal) Creatinine, Serum 0.65 mg/dL (Normal) Range: 0.57-1.00 BUN 11 mg/dL (Normal) Range: 8-27 Glucose, Serum 93 mg/dL (Normal) Range: 65-99 85-Oqn-902994:13 TSH (99976) Comments: PATIENT NOT FASTINGPERFORMED BY: [employer] [facility] [id number] BY: AlignAlyticsKenneth [place] [id number] TSH 0.027 {uIU/mL} (Abnormal) Range: 0.450-4.500 70-Xrs-555727:13 T4, FREE (THYROXINE) Comments: PATIENT NOT FASTINGPERFORMED BY: [employer] LeagueAppsMike [place] 1868570 [facility] [id number] BY: [employer] [id number] (10897) T4,Free(Direct) 1.92 ng/dL (Abnormal) Range: 0.82-1.77 56-Zlt-156284:13 Sed Rate Erythrocyte Comments: PATIENT NOT FASTINGPERFORMED BY: [employer] [id number] BY: [employer] [id number] (13498) Sedimentation Rate-Westergren 5 mm/h (Normal) Range: 0-40 68-Dvb-263015:13 C-Reactive Protein Comments: PATIENT NOT FASTINGPERFORMED BY: [place] 8553570 [facility] [id number] BY: [address] [id number] (70133) C-Reactive Protein, Quant 0.4 mg/L (Normal) Range: 0.0-4.9 32-Wpx-464254:13 Creatine Kinase Total Comments: PATIENT NOT FASTINGPERFORMED BY: Riverbed TechnologyMike [place] 1868570 [facility] [id number] BY: [address] [id number] (20274) Creatine Kinase,Total,Serum 30 U/L (Normal) Range: 24-173 42-Hfa-36445:46 HgA1C , Office (31064) HgA1C , Office 5.8 % (Normal) Range: 4.6 - 7.1 66-Ukh-532492:05 MICROALBUMIN: CREATININE Comments: PATIENT NOT FASTINGPERFORMED BY: AlignAlyticsSean [place] 0961870 [facility] [id number] BY: [address] [id number] RATIO (70357) AND (90384) Microalb/Creat Ratio <28.8 {mg/g_creat} (Normal) Range: 0.0-30.0 Microalbumin, Urine <3.0 ug/mL (Normal) Creatinine, Urine 10.4 mg/dL (Normal) 27-Atw-910696:05 CBC with auto diff Comments: PATIENT NOT FASTINGPERFORMED BY: AlignAlyticsM[facility]6370 [facility] [id number] BY: [address] [id number] (46736) Immature Grans (Abs) 0.0 {x10E3/uL} (Normal) Range: 0.0-0.1 Immature Granulocytes 0 % (Normal) Baso (Absolute) 0.0 {x10E3/uL} (Normal) Range: 0.0-0.2 Eos (Absolute) 0.1 {x10E3/uL} (Normal) Range: 0.0-0.4 Monocytes(Absolute) 0.5 {x10E3/uL} (Normal) Range: 0.1-0.9 Lymphs (Absolute) 1.6 {x10E3/uL} (Normal) Range: 0.7-3.1 Neutrophils (Absolute) 2.7 {x10E3/uL} (Normal) Range: 1.4-7.0 Basos 0 % (Normal) Eos 2 % (Normal) Monocytes 10 % (Normal) Lymphs 33 % (Normal) Neutrophils 55 % (Normal) Platelets 243 {x10E3/uL} (Normal) Range: 150-379 RDW 14.1 % (Normal) Range: 12.3-15.4 MCHC 33.6 g/dL (Normal) Range: 31.5-35.7 MCH 30.5 pg (Normal) Range: 26.6-33.0 MCV 91 fL (Normal) Range: 79-97 Hematocrit 41.4 % (Normal) Range: 34.0-46.6 Hemoglobin 13.9 g/dL (Normal) Range: 11.1-15.9 RBC 4.56 {x10E6/uL} (Normal) Range: 3.77-5.28 WBC 5.0 {x10E3/uL} (Normal) Range: 3.4-10.8 30-Lbv-113969:05 ZINC, BLOOD (13328) Comments: PATIENT NOT FASTINGPERFORMED BY: CB [facility] Dgzweg1642 [facility] [id number] BY: BN [facility] [address] [id number] Zinc, Plasma or Serum 98 ug/dL (Normal) Range: 56-134 Comments: Detection Limit = 5 72-Rsp-291252:21 HgA1C , Office (44570) HgA1C , Office 5.6 % (Normal) Range: 4.6 - 7.1 21-Apl-758119:15 Basic Metabolic Profile (BMP) Comments: Has Patient had X-rays with [facility] this admission? NComments: #[id number] THYRO PANEL SER FRZ 5ML [facility] [address] [place], [place], [address] GAP 6 (Normal) Range: 5-15 CO2 31.0 mmol/L (Normal) Range: 21.0-32.0 CL 104 mmol/L (Normal) Range: 98-107 K 3.4 mmol/L (Abnormal) Range: 3.5-5.1 NA 141 mmol/L (Normal) Range: 136-145 CA 8.5 mg/dL (Normal) Range: 8.5-10.1 BUN/CRE 20.4 {RATIO} (Abnormal) Range: 10-20 EST GFR - AA 162 mL/min (Normal) Comments: GFR Calc EST GFR 134 mL/min (Normal) Comments: Non- GFR Calc CREAT,SERUM 0.49 mg/dL (Abnormal) Range: 0.55-1.02 Comments: The validity of the calculated GFR AND GFRAA in patients over70 years has not been determined. Clinical correlation isessential. BUN 10 mg/dL (Normal) Range: 7-18 GLU 90 mg/dL (Normal) Range: 70-110 93-Lne-627767:15 Miscellaneous Lab Procedure Comments: Comments: #[id number] THYRO PANEL SER FRZ 5ML TIGERTest(s) Ordered: #[id number] THYRO PANEL SER FRZ 5ML [facility] [address] [place], [place], [id number] [facility] Comments: TEST RESULT UNITS REFERENCE INTERVALComprehensive ThyroglobulinAnti-Thyroglobulin Antibodies <1.0 IU/mLReference Range:<1.0 Negative> or = 1.0 P LAB (Normal) ositiveThyroglobulin (ICMA) <0.1 ng/mLReference Range:>17y: 1.5 - 38.5According to the National Academy of Clinical Biochemistry,the reference interval for Thyroglobulin (TG) should berela TEST jhonny to euthyroid patients and not for patients whounderwent thyroidectomy. TG reference intervals for thesepatients depend on the residual mass of the thyroid tissueleft after surgery. Establishing a po st-operative baselineis recommended. The assay quantitation limit is 0.1 ng/mL.Thyroglobulin (TG-ROSEY) ng/mL Not applicable ___ TESTING PERFORMED AT [facility]. ORIGINAL REPORT ON FILE IN LAB CONTAINS ADDITIONAL TEST SITE INFORMATION. 81-Amx-336896:15 T4 Free Direct Comments: Has Patient had X-rays with [facility] this admission? NComments: #[id number] THYRO PANEL SER FRZ 5ML [facility] [address], [address] T4 FREE DIRECT 1.40 ng/dL (Normal) Range: 0.76-1.46 71-Vga-837490:15 Thyroid Stim Hormone (TSH) Comments: Has Patient had X-rays with [facility] this admission? NComments: #[id number] THYRO PANEL SER FRZ 5ML [facility] [address] [place], [address] TSH < 0.01 {uIU/mL} (Abnormal) Range: 0.358-3.74 97-Tpx-256320:08 Ferritin Comments: Comments: #[id number] CHROMIUM ROYAL BL PLS 2ML RTIs Patient Taking Vitamins or Folic Acid Supplements? [facility] [address] [place], [address] FERRITIN 230 ng/mL (Normal) Range: 8-252 72-Ukp-328783:08 Folates, (Folic Acid) Comments: Comments: #[id number] CHROMIUM ROYAL BL PLS 2ML RTIs Patient Taking Vitamins or Folic Acid Supplements? [facility] [address] [place], [address] FOLATES 40.30 ng/mL (Abnormal) Range: 3.1-17.5 46-Sgz-886005:08 Magnesium Comments: Comments: #[id number] CHROMIUM ROYAL BL PLS 2ML RTIs Patient Taking Vitamins or Folic Acid Supplements? [facility] [address], [address] MG 2.0 mg/dL (Normal) Range: 1.8-2.4 03-Tok-726326:08 Miscellaneous Lab Procedure Comments: Comments: #[id number] CHROMIUM ROYAL BL PLS 2ML RTTest(s) Ordered: #[id number] CHROMIUM ROYAL BL PLS 2ML [facility] [address], [address] [facility] Comments: TEST RESULT UNITS REFERENCE INTERVALChromium, Plasma 1.9 ug/L 0.1 - 2.1 Detection Limit = 0.1 LAB (Normal) TESTING PERFORMED AT [facility]. ORIGINAL REPORT ON FILE IN LAB CONTAINS ADDITIONAL TEST SITE INFORMATION. TEST 55-Dtf-917671:08 Phosphorus Comments: Comments: #[id number] CHROMIUM ROYAL BL PLS 2ML RTIs Patient Taking Vitamins or Folic Acid Supplements? [facility] [address], [address] PHOS 3.2 mg/dL (Normal) Range: 2.5-4.9 31-Vgs-102501:08 Vitamin A, Retinol Comments: Comments: #[id number] CHROMIUM ROYAL BL PLS 2ML RTLabCorp (refer to report for specific site)refer to report for address and phone number VIT A, 276681 39 ug/dL (Normal) Range: 26-82 Comments: Performed at: [facility] [address] [id number] Director: Preston Zavala MD, Phone: [phone] 28-Bkk-171602:08 Vitamin B12 525 pg/mL (Normal) Comments: [facility] [address] [place], [place], [address] Range: 211-911 25-Bwh-210322:08 Zinc, Plasma or Serum Comments: Comments: #[id number] CHROMIUM ROYAL BL PLS 2ML RTLabCorp (refer to report for specific site)refer to report for address and phone number ZINC Plasma/Ser 53 ug/dL (Abnormal) Range: 56-134 Comments: Detection Limit = 5 88-Jro-299095:45 Basic Metabolic Profile (BMP) Comments: [facility] [address] [place], [place], [address] GAP 9 (Normal) Range: 5-15 CO2 26.0 mmol/L (Normal) Range: 21.0-32.0 CL 102 mmol/L (Normal) Range: 98-107 K 4.0 mmol/L (Normal) Range: 3.5-5.1 NA 137 mmol/L (Normal) Range: 136-145 CA 8.8 mg/dL (Normal) Range: 8.5-10.1 BUN/CRE 21.8 {RATIO} (Abnormal) Range: 10-20 EST GFR - AA 142 mL/min (Normal) Comments: GFR Calc EST GFR 118 mL/min (Normal) Comments: Non- GFR Calc CREAT,SERUM 0.55 mg/dL (Normal) Range: 0.55-1.02 Comments: The validity of the calculated GFR AND GFRAA in patients over70 years has not been determined. Clinical correlation isessential. BUN 12 mg/dL (Normal) Range: 7-18 GLU 90 mg/dL (Normal) Range: 70-110 73-Qou-581128:45 T4 Free Direct Comments: [facility] [address] [place], [address] T4 FREE DIRECT 1.49 ng/dL (Abnormal) Range: 0.76-1.46 30-Gna-139660:45 Thyroglobulin w/Anti-TG AB Comments: [facility] (refer to report for specific site)refer to report for address and phone number THYROGLOB < 0.1 ng/mL (Abnormal) Range: 1.5-38.5 Comments: According to the National Academy of Clinical Biochemistry,the reference interval for Thyroglobulin (TG) should berelated to euthyroid patients and not for patients whounderwent thyroidectomy. TG refere nce intervals for thesepatients depend on the residual mass of the thyroid tissueleft after surgery. Establishing a post-operative baselineis recommended. The assay limit of quantitation is 0.1ng/mLThyr oglobulin measured by iZ3D ImmunometricAssayPerformed at: [place] [id number] [place], [place] [id number] Director: Chato Irwin PhD, Phone: [phone] ANTI-TG AB < 1.0 {IU/mL} (Normal) Range: 0.0-0.9 Comments: Thyroglobulin Antibody measured by Annel CoulterMethodology 39-Wxt-174992:45 Thyroid Stim Hormone (TSH) Comments: [facility] [address] [place], [address] TSH < 0.01 {uIU/mL} (Abnormal) Range: 0.358-3.74 13-Qgy-879252:33 IGP, Aptima HPV, Comments: Source.............Cervix;EndocervixNo. of containers..01 CYTYC Thin Prep VialPATIENT NOT FASTINGPERFORMED BY: =G [facility] Fbmimcwcvo776 [facility] [id number] BY: WB [facility] rfx 16/18,45 rp Vxjdhodorf222 [facility] [id number] HPV Aptima Negative (Normal) Comments: This test detects fourteen high-risk HPV types (16/18/31/33/35/39/45/51/52/56/58/59/66/68) without differentiation. Note: PAPSMR (Normal) Comments: The Pap smear is a screening test designed to aid in the detection ofpremalignant and malignant conditions of the uterine cervix. It is not adiagnostic procedure and should not be used as the sole mean s of detectingcervical cancer. Both false-positive and false-negative reports do occur. .This liquid based ThinPrep(R) pap test w as screened with theuse of an image guided system. See Note . (Normal) DIAGNOSIS: SPRCS (Normal) Comments: NEGATIVE FOR INTRAEPITHELIAL LESION AND MALIGNANCY.CELLULAR CHANGES ASSOCIATED WITH ATROPHY ARE PRESENT.Satisfactory for evaluation. Endocervical component may not bedistinguished in cases of atrophy.Z 01.Yvette Villasenor Director Of Marketing Operations (ASCP) 05-Lzo-141505:56 HgA1C , Office (64490) HgA1C , Office 5.8 % (Normal) Range: 4.6 - 7.1 79-Wfh-157912:33 Thin prep Pap Comments: Source.............Cervix;EndocervixNo. of containers..01 CYTYC Thin Prep VialPATIENT NOT FASTINGPERFORMED BY: =G [facility] [address] [id number] BY: WB [facility] ([id number]) (no STD rp Wqcybjglvn307 [facility] [id number] Information: [id number] testing) Age Gdln ACOG Testing 30-65 (Normal) 4-Iiz-134811:10 Basic Metabolic Profile (BMP) Comments: [facility] [address] [place], [address] GAP 3 (Abnormal) Range: 5-15 CO2 29.0 mmol/L (Normal) Range: 21.0-32.0 CL 108 mmol/L (Abnormal) Range: 98-107 K 3.8 mmol/L (Normal) Range: 3.5-5.1 NA 140 mmol/L (Normal) Range: 136-145 CA 8.8 mg/dL (Normal) Range: 8.5-10.1 BUN/CRE 11.9 {RATIO} (Normal) Range: 10-20 EST GFR - AA 132 mL/min (Normal) Comments: GFR Calc EST GFR 109 mL/min (Normal) Comments: Non- GFR Calc CREAT,SERUM 0.59 mg/dL (Normal) Range: 0.55-1.20 Comments: The validity of the calculated GFR AND GFRAA in patients over70 years has not been determined. Clinical correlation isessential. BUN 7 mg/dL (Normal) Range: 7-18 GLU 91 mg/dL (Normal) Range: 70-110 2-Kkn-401671:10 T4 Free Direct Comments: [facility] [address] [place], [place], [address] T4 FREE DIRECT 1.45 ng/dL (Normal) Range: 0.76-1.46 4-Uyz-070878:10 Thyroglobulin w/Anti-TG AB Comments: [facility] (refer to report for specific site)refer to report for address and phone number THYROGLOB < 0.1 ng/mL (Abnormal) Range: 1.5-38.5 Comments: According to the National Academy of Clinical Biochemistry,the reference interval for Thyroglobulin (TG) should berelated to euthyroid patients and not for patients whounderwent thyroidectomy. TG refere nce intervals for thesepatients depend on the residual mass of the thyroid tissueleft after surgery. Establishing a post-operative baselineis recommended. The assay limit of quantitation is 0.1ng/mLThyr oglobulin measured by iZ3D ImmunometricAssayPerformed at: [facility] [id number] Director: Chato Irwin PhD, Phone: [phone] ANTI-TG AB < 1.0 {IU/mL} (Normal) Range: 0.0-0.9 Comments: Thyroglobulin Antibody measured by Annel CoulterMethodology 1-Ccx-974274:10 Thyroid Stim Hormone (TSH) Comments: [facility] [address] [place], [place], [address] TSH < 0.01 {uIU/mL} (Abnormal) Range: 0.358-3.74 70-Tgc-584391:04 CBC W/Diff, Automated Comments: [facility] [address] [place], [place], [address] ; [address]25 Absolute Lymph 1.25 {X10_3/ul} (Normal) Range: 0.83-4.51 Absolute Neut 2.5 {X10_3/uL} (Normal) Range: 2.0-7.7 IM GRAN % 0.000 % (Normal) Range: 0.0-0.9 Comments: IG% - Immature Granulocytes (promyelocytes, myelocytes andmetamyelocytes) > 1% indicates that a LEFT SHIFT is Present. BASO% 0.2 % (Normal) Range: 0-1 EO% 2.6 % (Normal) Range: 0-5 MONO% 8.4 % (Normal) Range: 0-10 LY% 30.0 % (Normal) Range: 19-41 NEUT% 58.8 % (Normal) Range: 47-70 MPV 11.0 fL (Normal) Range: 6.2-12.0 PLT 204 K/mm3 (Normal) Range: 150-450 RDW SD 44.2 fL (Abnormal) Range: 35.1-43.9 RDW CV 13.4 % (Normal) Range: 11.6-14.6 MCHC 32.7 {g/gl} (Normal) Range: 32-36 MCH 30.5 pg (Normal) Range: 27.0-32.0 MCV 93.2 fL (Normal) Range: 81-99 HCT 39.7 % (Normal) Range: 37-47 HGB 13.0 g/dL (Normal) Range: 12.0-15.0 RBC 4.26 {M/mm3} (Normal) Range: 4.2-5.4 WBC 4.2 K/mm3 (Abnormal) Range: 4.4-11.0 66-Kev-108532:04 Comprehensive Metabolic Profil Comments: [facility] [address] [place], [place], [address] GAP 6 (Normal) Range: 5-15 CO2 28.0 mmol/L (Normal) Range: 21.0-32.0 CL 109 mmol/L (Abnormal) Range: 98-107 K 4.0 mmol/L (Normal) Range: 3.5-5.1 NA 143 mmol/L (Normal) Range: 136-145 T BILI 0.40 mg/dL (Normal) Range: 0.20-1.00 ALT 25 U/L (Normal) Range: 12-78 ALK P 47 U/L (Abnormal) Range: 50-136 AST 17 U/L (Normal) Range: 15-37 CA 8.5 mg/dL (Normal) Range: 8.5-10.1 A/G 1.1 {RATIO} (Normal) Range: 0.9-2.4 GLOB 3.2 g/dL (Normal) Range: 2.3-3.5 ALB 3.4 g/dL (Normal) Range: 3.4-5.0 T PROT 6.6 g/dL (Normal) Range: 6.4-8.2 BUN/CRE 18.0 {RATIO} (Normal) Range: 10-20 EST GFR - AA 159 mL/min (Normal) Comments: GFR Calc EST GFR 131 mL/min (Normal) Comments: Non- GFR Calc CREAT,SERUM 0.50 mg/dL (Abnormal) Range: 0.55-1.20 Comments: The validity of the calculated GFR AND GFRAA in patients over70 years has not been determined. Clinical correlation isessential. BUN 9 mg/dL (Normal) Range: 7-18 GLU 88 mg/dL (Normal) Range: 70-110 :04 Hemoglobin A1c Comments: [facility] [address] [place], [place], [address] HGB A1C 5.6 % (Normal) Range: 4.2-6.3 :04 Lipid Profile Comments: [facility] [address] [place], [place], [address] VLDL 12 mg/dL (Normal) Range: 5-40 LDL 94 mg/dL (Normal) Range: 0-130 HDL 66 mg/dL (Normal) Comments: Reference Range HDL <40 mg/dL Low HDL Cholesterol HDL >or= 60 mg/dL High HDL Cholesterol TRIG 61 mg/dL (Normal) Comments: Serum Triglycerides Reference Interval Normal <150 mg/dL Borderline high 150 - 199 mg/dL High 200 - 499 mg/dL Very High > or = 500 mg/dL CHOL 172 mg/dL (Normal) Comments: <200 mg/dL Desirable 200-240 mg/dL Borderline >240 mg/dL High Risk :04 Vitamin D,25 Hydroxy Comments: [facility] [address] [place], [place], [address] ; reviwe on 01/03 Vitamin D 25-OH 94.6 ng/mL (Normal) Comments: Vitamin D 25(OH) Status Range Deficiency <20 ng/mL (50nmol/L) Insuffciency 20 - 30 ng/mL (50 - 75 nmol/L) Sufficiency 30 - 100 ng/mL (75 - 250 nmol/L) Toxicity >100 ng/mL (>250 nmol/L) 4-Yer-784643:51 CBC-Complete Blood Cnt No Diff Comments: [facility] [address] [place], [place], [address] MPV 10.3 fL (Normal) Range: 6.2-12.0 PLT 193 K/mm3 (Normal) Range: 150-450 RDW SD 46.2 fL (Abnormal) Range: 35.1-43.9 RDW CV 13.6 % (Normal) Range: 11.6-14.6 MCHC 31.9 {g/gl} (Abnormal) Range: 32-36 MCH 29.8 pg (Normal) Range: 27.0-32.0 MCV 93.3 fL (Normal) Range: 81-99 HCT 40.7 % (Normal) Range: 37-47 HGB 13.0 g/dL (Normal) Range: 12.0-15.0 RBC 4.36 {M/mm3} (Normal) Range: 4.2-5.4 WBC 3.4 K/mm3 (Abnormal) Range: 4.4-11.0 26-Sfv-356001:16 Basic Metabolic Profile (BMP) Comments: Has Patient had X-rays with Contrast this admission? NIs Patient on Heparin? [facility] [address] [place], [place], [address] GAP 4 (Abnormal) Range: 5-15 CO2 31.0 mmol/L (Normal) Range: 21.0-32.0 CL 106 mmol/L (Normal) Range: 98-107 K 3.8 mmol/L (Normal) Range: 3.5-5.1 NA 141 mmol/L (Normal) Range: 136-145 CA 9.5 mg/dL (Normal) Range: 8.5-10.1 BUN/CRE 21.2 {RATIO} (Abnormal) Range: 10-20 EST GFR - AA 138 mL/min (Normal) Comments: GFR Calc EST GFR 114 mL/min (Normal) Comments: Non- GFR Calc CREAT,SERUM 0.57 mg/dL (Normal) Range: 0.55-1.20 Comments: The validity of the calculated GFR AND GFRAA in patients over70 years has not been determined. Clinical correlation isessential. BUN 12 mg/dL (Normal) Range: 7-18 GLU 97 mg/dL (Normal) Range: 70-110 44-Tci-907625:16 T4 Free Direct Comments: Has Patient had X-rays with Contrast this admission? NIs Patient on Heparin? [facility] [address] [place], [place], [address] T4 FREE DIRECT 1.67 ng/dL (Abnormal) Range: 0.76-1.46 85-Rbv-095159:16 Thyroglobulin w/Anti-TG AB Comments: [facility] (refer to report for specific site)refer to report for address and phone number TG AB < 1.0 {IU/mL} (Normal) Range: 0.0-0.9 Comments: Thyroglobulin Antibody measured by Annel CoulterMethodology :16 Thyroid Stim Hormone (TSH) Comments: Has Patient had X-rays with Contrast this admission? NIs Patient on Heparin? [facility] [address] [place], [place], [address] TSH < 0.01 {uIU/mL} (Abnormal) Range: 0.358-3.74 1-Fhz-023505:33 T4 Total, Thyroxin Comments: [facility] [address] [place], [place], [address] T4 THYROXIN 10.4 ug/dL (Normal) Range: 4.8-13.9 5-Xba-174428:33 Thyroid Stim Hormone (TSH) Comments: [facility] [address] [place], [place], [address] TSH < 0.01 {uIU/mL} (Abnormal) Range: 0.358-3.74 77-Itu-432708:05 HgA1C , Office (92627) HgA1C , Office 6.0 % (Normal) Range: 4.6 - 7.1 04-Rut-580214:05 Blood Glucose , Office (81956) Blood Glucose , Office 102 (Normal) 49-Hnm-473747:04 CBC W/Diff, Automated Comments: Test performed at:[facility] [address] [place] [address] Absolute Lymph 1.40 {X10_3/ul} (Normal) Range: 0.83-4.51 Absolute Neut 1.7 {X10_3/uL} (Abnormal) Range: 2.0-7.7 IM GRAN % 0.000 % (Normal) Range: 0.0-0.9 Comments: IG% - Immature Granulocytes (promyelocytes, myelocytes andmetamyelocytes) > 1% indicates that a LEFT SHIFT is Present. BASO% 0.3 % (Normal) Range: 0-1 EO% 5.3 % (Abnormal) Range: 0-5 MONO% 7.6 % (Normal) Range: 0-10 LY% 39.2 % (Normal) Range: 19-41 NEUT% 47.6 % (Normal) Range: 47-70 MPV 11.0 fL (Normal) Range: 6.2-12.0 PLT 199 K/mm3 (Normal) Range: 150-450 RDW SD 43.0 fL (Normal) Range: 35.1-43.9 RDW CV 13.3 % (Normal) Range: 11.6-14.6 MCHC 32.8 {g/gl} (Normal) Range: 32-36 MCH 29.6 pg (Normal) Range: 27.0-32.0 MCV 90.0 fL (Normal) Range: 81-99 HCT 40.5 % (Normal) Range: 37-47 HGB 13.3 g/dL (Normal) Range: 12.0-15.0 RBC 4.50 {M/mm3} (Normal) Range: 4.2-5.4 WBC 3.6 K/mm3 (Abnormal) Range: 4.4-11.0 82-Usx-307363:04 Comprehensive Metabolic Profil Comments: CBCDLIPID CMP MIACREDR.PAVEL TSH T4F BMP THRYOGLULIN PANELTest performed at:[facility] [address] [place] [address] GAP 9 (Normal) Range: 5-15 CO2 26.0 mmol/L (Normal) Range: 21.0-32.0 CL 107 mmol/L (Normal) Range: 98-107 K 3.9 mmol/L (Normal) Range: 3.5-5.1 NA 142 mmol/L (Normal) Range: 136-145 T BILI 0.30 mg/dL (Normal) Range: 0.20-1.00 ALT 23 U/L (Normal) Range: 12-78 ALK P 52 U/L (Normal) Range: 50-136 AST 13 U/L (Abnormal) Range: 15-37 CA 8.5 mg/dL (Normal) Range: 8.5-10.1 A/G 0.9 {RATIO} (Normal) Range: 0.9-2.4 GLOB 3.7 g/dL (Abnormal) Range: 2.3-3.5 ALB 3.2 g/dL (Abnormal) Range: 3.4-5.0 T PROT 6.9 g/dL (Normal) Range: 6.4-8.2 BUN/CRE 25.0 {RATIO} (Abnormal) Range: 10-20 EST GFR - AA 185 mL/min (Normal) EST GFR 153 mL/min (Normal) CREAT,SERUM 0.44 mg/dL (Abnormal) Range: 0.55-1.20 Comments: Please note revised CREATININE reference range mrvfqxgom19/22/2015. BUN 11 mg/dL (Normal) Range: 7-18 GLU 91 mg/dL (Normal) Range: 70-110 97-Eao-322225:04 Lipid Profile Comments: CBCDLIPID CMP MIACREDR.PAVEL TSH T4F BMP THRYOGLULIN PANELTest performed at:[facility] [address] [place], [place] [address] VLDL 12 mg/dL (Normal) Range: 5-40 LDL 97 mg/dL (Normal) Range: 0-130 HDL 58 mg/dL (Normal) Comments: Reference Range HDL <40 mg/dL Low HDL Cholesterol HDL >or= 60 mg/dL High HDL Cholesterol TRIG 60 mg/dL (Normal) Comments: Serum Triglycerides Reference Interval Normal <150 mg/dL Borderline high 150 - 199 mg/dL High 200 - 499 mg/dL Very High > or = 500 mg/dL CHOL 167 mg/dL (Normal) Comments: <200 mg/dL Desirable 200-240 mg/dL Borderline >240 mg/dL High Risk 60-Fyp-679244:04 Microalb:Creat Ratio,Random UR Comments: Test performed at:[facility] [address] [place] [address] MALB:CREAT Test not performed {mg/g_CRE} (Normal) MICROALBUMIN,UR < 5.0 mg/L (Normal) UR CREAT 29.00 mg/dL (Normal) 62-Ihr-042419:04 T4 Free Direct Comments: DR.BONEZZI DO [facility] TSH T4F BMP THRYOGLULIN PANELTest performed at:[facility] [address] [place] [address] T4 FREE DIRECT 1.54 ng/dL (Abnormal) Range: 0.76-1.46 75-Kzv-495666:04 Thyroglobulin w/Anti-TG AB Comments: Test performed at:[facility] [address] [place] [address] THYROGLOB < 0.1 ng/mL (Abnormal) Range: 1.5-38.5 Comments: According to the National Academy of Clinical Biochemistry,the reference interval for Thyroglobulin (TG) should berelated to euthyroid patients and not for patients whounderwent thyroidectomy. TG refere nce intervals for thesepatients depend on the residual mass of the thyroid tissueleft after surgery. Establishing a post-operative baselineis recommended. The assay limit of quantitation is 0.1ng/mLThyr oglobulin measured by Annel Shagufta ImmunometricAssayPerformed at: - [facility] [id number] Director: Chato Irwin PhD, Phone: [phone] ANTI-TG AB < 1.0 {IU/mL} (Normal) Range: 0.0-0.9 Comments: Antithyroglobulin antibodies measured by Annel CoulterMethodology 94-Kga-523155:04 Thyroid Stim Hormone (TSH) Comments: DR.BONEZZI DO [facility] KENISHA TSH T4F BMP THRYOGLULIN PANELTest performed at:[facility] [address] [place] [address] TSH < 0.01 {uIU/mL} (Abnormal) Range: 0.358-3.74 39-Sgz-196043:16 Basic Metabolic Profile (BMP) Comments: Test performed at:[facility] [address] [place] [address] GAP 5 (Normal) Range: 5-15 CO2 30.0 mmol/L (Normal) Range: 21.0-32.0 CL 107 mmol/L (Normal) Range: 98-107 K 3.7 mmol/L (Normal) Range: 3.5-5.1 NA 142 mmol/L (Normal) Range: 136-145 CA 8.6 mg/dL (Normal) Range: 8.5-10.1 BUN/CRE 18.0 {RATIO} (Normal) Range: 10-20 EST GFR - AA 160 mL/min (Normal) EST GFR 132 mL/min (Normal) CREAT,SERUM 0.5 mg/dL (Abnormal) Range: 0.6-1.0 BUN 9 mg/dL (Normal) Range: 7-18 GLU 91 mg/dL (Normal) Range: 70-110 48-Vfy-881604:16 T4 Total, Thyroxin Comments: Test performed at:[facility] [address] [facility] [place] [address] T4 THYROXIN 10.2 ug/dL (Normal) Range: 4.8-13.9 93-Czr-835012:16 Thyroid Stim Hormone (TSH) Comments: Test performed at:[facility] [address] [place] [address] TSH < 0.01 {uIU/mL} (Abnormal) Range: 0.358-3.74 79-Ixf-186918:38 HgA1C , Office (40532) HgA1C , Office 5.4 % (Normal) Range: 4.6 - 7.1 31-Vaf-821490:38 Blood Glucose , Office (54783) Blood Glucose , Office 107 (Normal) 46-Ued-536826:14 Basic Metabolic Profile (BMP) Comments: Test performed at:[facility] [address] [facility] [place], [place] [address] GAP 6 (Normal) Range: 5-15 CO2 28.0 mmol/L (Normal) Range: 21.0-32.0 CL 108 mmol/L (Abnormal) Range: 98-107 K 4.0 mmol/L (Normal) Range: 3.5-5.1 NA 142 mmol/L (Normal) Range: 136-145 CA 8.2 mg/dL (Abnormal) Range: 8.5-10.1 BUN/CRE 13.3 {RATIO} (Normal) Range: 10-20 EST GFR - AA 130 mL/min (Normal) EST GFR 107 mL/min (Normal) CREAT,SERUM 0.6 mg/dL (Normal) Range: 0.6-1.0 BUN 8 mg/dL (Normal) Range: 7-18 GLU 89 mg/dL (Normal) Range: 70-110 72-Fow-954983:46 Basic Metabolic Profile (BMP) Comments: Test performed at:[facility] [address] [facility] [place] [address] GAP 7 (Normal) Range: 5-15 CO2 28.0 mmol/L (Normal) Range: 21.0-32.0 CL 109 mmol/L (Abnormal) Range: 98-107 K 3.8 mmol/L (Normal) Range: 3.5-5.1 NA 144 mmol/L (Normal) Range: 136-145 CA 8.1 mg/dL (Abnormal) Range: 8.5-10.1 BUN/CRE 16.7 {RATIO} (Normal) Range: 10-20 EST GFR - AA 130 mL/min (Normal) EST GFR 107 mL/min (Normal) CREAT,SERUM 0.6 mg/dL (Normal) Range: 0.6-1.0 BUN 10 mg/dL (Normal) Range: 7-18 GLU 84 mg/dL (Normal) Range: 70-110 93-Owi-627825:46 T4 Free Direct Comments: Test performed at:[facility] [address] [facility] [place] [address] T4 FREE DIRECT 1.26 ng/dL (Normal) Range: 0.76-1.46 60-Idb-201438:46 Thyroglobulin w/Anti-TG AB Comments: Test performed at:[facility] [address] [facility] [place] [address] THYROGLOB 1.3 ng/mL (Abnormal) Range: 1.5-38.5 Comments: According to the National Academy of Clinical Biochemistry,the reference interval for Thyroglobulin (TG) should berelated to euthyroid patients and not for patients whounderwent thyroidectomy. TG refere nce intervals for thesepatients depend on the residual mass of the thyroid tissueleft after surgery. Establishing a post-operative baselineis recommended. The assay limit of quantitation is 0.1ng/mLThyr oglobulin measured by iZ3D ImmunometricAssayPerformed at: [address] [id number] Director: Jarek Coon PhD, Phone: [phone] ANTI-TG AB < 1.0 {IU/mL} (Normal) Range: 0.0-0.9 Comments: Antithyroglobulin antibodies measured by iZ3DMethodology 03-Cbq-713881:46 Thyroid Stim Hormone (TSH) Comments: Test performed at:[facility] [address] [place] [address] TSH 0.48 {uIU/mL} (Normal) Range: 0.358-3.74 10-Rrg-150257:25 Calcium Ionized Comments: Test performed at:[facility] [address] [facility] [place] [address] [place] 4804 4.9 mg/dL (Normal) Range: 4.5-5.6 Comments: Performed at: [address] [id number] Director: Jarek Coon PhD, Phone: [phone] 7-Nwt-910101:32 Basic Metabolic Profile (BMP) Comments: Comments: #[id number] THYROID ANTIBODIES SER RED OR GEL REF 1MLTest performed at:[facility] [id number] [place] [address] GAP 8 (Normal) Range: 5-15 CO2 28.0 mmol/L (Normal) Range: 21.0-32.0 CL 103 mmol/L (Normal) Range: 98-107 K 4.4 mmol/L (Normal) Range: 3.5-5.1 NA 139 mmol/L (Normal) Range: 136-145 CA 9.2 mg/dL (Normal) Range: 8.5-10.1 BUN/CRE 11.3 {RATIO} (Normal) Range: 10-20 EST GFR - AA 93 mL/min (Normal) EST GFR 77 mL/min (Normal) CREAT,SERUM 0.8 mg/dL (Normal) Range: 0.6-1.0 BUN 9 mg/dL (Normal) Range: 7-18 GLU 92 mg/dL (Normal) Range: 70-110 [id number] Calcium Ionized Comments: Test performed at:[facility] [id number] [place] [id number] [place] [address] Test not performed mg/dL Comments: An unopened serum separator tube is required for this test.Contacted Lydia at your facility 11/14/14 (Normal) [id number] Free T3 Comments: Comments: #[id number] THYROID ANTIBODIES SER RED OR GEL REF 1MLTest performed at:[facility] [id number] [place] [id number] FREE T3 1.2 pg/mL (Abnormal) Range: 2.18-3.98 [id number] Miscellaneous Lab Procedure Comments: Comments: #[id number] THYROID ANTIBODIES SER RED OR GEL REF 1MLTest(s) Ordered: THYROID ABTest performed at:[facility] [id number] [place] [id number] MISC Comments: TEST RESULT UNITS REF INTERvalThyroid Antibodies Thyroid Peroxidase(TPO) Ab 10 IU/mL 0 - 34 Thyroglobulin, Antibody <1.0 IU/mL 0.0 - 0.9Please LAB (Normal) Note:Low ositive Thyroglobulin antibodies are seen in a portionof the asymptomatic populations.Antithyroglobulin antibodies measured by Annel CoulterMethodology TEST TESTING PERFORMED AT [facility]. ORIGINAL REPORT ON FILE IN LAB CONTAINS ADDITIONAL TEST SITE INFORMATION. 7-Dqp-[id number]:32 T4 Free Direct Comments: Comments: #[id number] THYROID ANTIBODIES SER RED OR GEL REF 1MLTest performed at:[facility] [address] [place] [address] T4 FREE DIRECT 0.30 ng/dL (Abnormal) Range: 0.76-1.46 7-Ewd-430102:32 Thyroglobulin w/Anti-TG AB Comments: Test performed at:[facility] [address] [place] [address] THYROGLOB 5.9 ng/mL (Normal) Range: 1.5-38.5 Comments: According to the National Academy of Clinical Biochemistry,the reference interval for Thyroglobulin (TG) should berelated to euthyroid patients and not for patients whounderwent thyroidectomy. TG refere nce intervals for thesepatients depend on the residual mass of the thyroid tissueleft after surgery. Establishing a post-operative baselineis recommended. The assay limit of quantitation is 0.1ng/mLThyr oglobulin measured by Annel Shagufta ImmunometricAssay ANTI-TG AB < 1.0 {IU/mL} (Normal) Range: 0.0-0.9 Comments: Antithyroglobulin antibodies measured by Annel CoulterMethodology 9-Mty-709751:32 Thyroid Stim Hormone (TSH) Comments: Comments: #[id number] THYROID ANTIBODIES SER RED OR GEL REF 1MLTest performed at:[facility] [address] [place] [address] TSH 28.60 {uIU/mL} (Abnormal) Range: 0.358-3.74 44-Imt-662934:26 Ferritin ([id number]) Comments: PATIENT NOT FASTINGPERFORMED BY: [employer] [facility] [facility] [id number] Ferritin, Serum 55 ng/mL (Normal) Range: 15-150 78-Czo-998836:26 CALCIFIDIOL (96783) VIT D 25 Comments: PATIENT NOT FASTINGPERFORMED BY: [employer] [facility] Tphsxu4634 [facility] [id number] Vitamin D, 25-Hydroxy 56.2 ng/mL (Normal) Range: 30.0-100.0 Comments: Vitamin D deficiency has been defined by the [place] of[place]icine and an Endocrine Society practice guideline as alevel of serum 25-OH vitamin D less than 20 ng/mL (1,2).The Endocrine Society went on to further define vitamin Dinsufficiency as a level between 21 and 29 ng/mL (2).1. IOM ([place] of Medicine). 2010. Dietary reference intakes for calcium and D. [place]: The National Academies Press.2. Domingo MF, Gregor NC, Joaquin GARZA, et al. Evaluation, treatment, and prevention of vitamin D deficiency: an Endocrine Society clinical practice guideline. JCEM. 2010; 96(7):1911-30. 27-Hxr-800145:26 METABOLIC PANEL, COMPREHENSIVE Comments: PATIENT NOT FASTINGPERFORMED BY: [facility] Xxvfzo0518 [facility] [id number] ([id number]) ALT (SGPT) 18 [iU]/L (Normal) Range: 0-32 AST (SGOT) 20 [iU]/L (Normal) Range: 0-40 Alkaline Phosphatase, S 62 [iU]/L (Normal) Range: 39-117 Bilirubin, Total 0.5 mg/dL (Normal) Range: 0.0-1.2 A/G Ratio 1.8 (Normal) Range: 1.1-2.5 Globulin, Total 2.4 g/dL (Normal) Range: 1.5-4.5 Albumin, Serum 4.2 g/dL (Normal) Range: 3.6-4.8 Protein, Total, Serum 6.6 g/dL (Normal) Range: 6.0-8.5 Calcium, Serum 9.4 mg/dL (Normal) Range: 8.7-10.3 Carbon Dioxide, Total 25 mmol/L (Normal) Range: 18-29 Chloride, Serum 102 mmol/L (Normal) Range: 97-108 Potassium, Serum 4.6 mmol/L (Normal) Range: 3.5-5.2 Sodium, Serum 144 mmol/L (Normal) Range: 134-144 BUN/Creatinine Ratio 14 (Normal) Range: 11-26 eGFR If Africn Am 109 mL/min/1.73 (Normal) eGFR If NonAfricn Am 95 mL/min/1.73 (Normal) Creatinine, Serum 0.65 mg/dL (Normal) Range: 0.57-1.00 BUN 9 mg/dL (Normal) Range: 8-27 Glucose, Serum 94 mg/dL (Normal) Range: 65-99 61-Hyj-844643:26 LIPID PANEL (02285) Comments: PATIENT NOT FASTINGPERFORMED BY: [facility] TechnologyKindred Hospital at RahwayQbqdkf5057 [facility] [id number] LDL/HDL Ratio 1.5 {ratio_units} (Normal) Range: 0.0-3.2 Comments: LDL/HDL Ratio Men Women 1/2 Avg.Risk 1.0 1.5 Av g.Risk 3.6 3.2 2X Avg.Risk 6.2 5.0 3X Avg.Risk 8.0 6.1 LDL Cholesterol Calc 124 mg/dL (Abnormal) Range: 0-99 VLDL Cholesterol Janae 18 mg/dL (Normal) Range: 5-40 HDL Cholesterol 81 mg/dL (Normal) Comments: According to ATP-III Guidelines, HDL-C >59 mg/dL is considered anegative risk factor for CHD. Triglycerides 92 mg/dL (Normal) Range: 0-149 Cholesterol, Total 223 mg/dL (Abnormal) Range: 100-199 16-Ksl-156519:26 CBC with auto diff Comments: PATIENT NOT FASTINGPERFORMED BY: [facility]6370 [facility] [id number] Information: [id number] ([id number]) Immature Grans (Abs) 0.0 {x10E3/uL} (Normal) Range: 0.0-0.1 Immature Granulocytes 0 % (Normal) Baso (Absolute) 0.0 {x10E3/uL} (Normal) Range: 0.0-0.2 Eos (Absolute) 0.1 {x10E3/uL} (Normal) Range: 0.0-0.4 Monocytes(Absolute) 0.5 {x10E3/uL} (Normal) Range: 0.1-0.9 Lymphs (Absolute) 1.8 {x10E3/uL} (Normal) Range: 0.7-3.1 Neutrophils (Absolute) 4.8 {x10E3/uL} (Normal) Range: 1.4-7.0 Basos 0 % (Normal) Eos 2 % (Normal) Monocytes 7 % (Normal) Lymphs 25 % (Normal) Neutrophils 66 % (Normal) Platelets 234 {x10E3/uL} (Normal) Range: 150-379 RDW 14.4 % (Normal) Range: 12.3-15.4 MCHC 32.1 g/dL (Normal) Range: 31.5-35.7 MCH 28.1 pg (Normal) Range: 26.6-33.0 MCV 88 fL (Normal) Range: 79-97 Hematocrit 42.0 % (Normal) Range: 34.0-46.6 Hemoglobin 13.5 g/dL (Normal) Range: 11.1-15.9 RBC 4.80 {x10E6/uL} (Normal) Range: 3.77-5.28 WBC 7.3 {x10E3/uL} (Normal) Range: 3.4-10.8 01-Kal-325518:26 Hemoglobin Glyclated (HGB A1C) Comments: PATIENT NOT FASTINGPERFORMED BY: [facility] [place]0084 [facility] [id number] ([id number]) Hemoglobin A1c 6.0 % (Abnormal) Range: 4.8-5.6 Comments: . Increased risk for diabetes: 5.7 - 6.4 Diabetes: >6.4 Glycemic control for adults with diabetes: <7.0 :29 Calcium,Total Comments: ADDED TSH, FT4 10/21/14Test performed at:[facility] [address] [place] [address] CA 8.8 mg/dL (Normal) Range: 8.5-10.1 :29 T4 Free Direct Comments: ADDED TSH, FT4 10/21/14Test performed at:[facility] [address] [facility] [address] [place], [place] [id number] T4 FREE DIRECT 0.59 ng/dL (Abnormal) Range: 0.76-1.46 2-Rmk-018559:29 Thyroid Stim Hormone (TSH) Comments: ADDED TSH, FT4 10/21/14Test performed at:[facility] [address] [place] [address] TSH 17.30 {uIU/mL} (Abnormal) Range: 0.358-3.74 49-Nou-028825:36 Calcium,Total Comments: Test performed at:[facility] [address] [place] [address] CA 8.7 mg/dL (Normal) Range: 8.5-10.1 00-Rhp-57544:04 Calcium,Total Comments: Test performed at:[facility] [address] [place] [address] CA 7.9 mg/dL (Abnormal) Range: 8.5-10.1 03-Nqw-048419:29 Bedside Glucose Comments: Test performed at:[facility] [address] [place] [address] BEDSIDE GLU 105 mg/dL (Normal) Range: 70-110 Comments: No Action RequiredMANAGEMENT OF PATIENT CARE PER NURSING PROTOCOL 87-Jhn-333059:27 Bedside Glucose Comments: Test performed at:[facility] [address] [place] [address] BEDSIDE GLU 105 mg/dL (Normal) Range: 70-110 Comments: No Action RequiredMANAGEMENT OF PATIENT CARE PER NURSING PROTOCOL 10-Ayi-250185: THYROID (TOTAL/LOBE) See Note (Normal) Comments: Test performed at:[facility] [address] [place] [address] 26 Comments: Patient: JODI MOMIN : 1950 (64/F) Acct Num: [id number] Phys: Paras CHANDRA,Lesa Unit Num: [id number] Loc: [facility] Specimen: [id number] Received: 09/30/141629 Spec Type: THYR OID TISSUES TISSUES: COMMENT IHC ([id number]) supports the above diagnosis. Case has been reviewed in consultation with Dr. Philippe who concurs with the abovediagnosis. 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 FROZEN SECTION DIAGNOSIS A. Thyroid vs parathyroid tissue, biopsy: Thyroid tissue. IDC:MARISA AM: 10/01/14 GROSS DESCRIPTION A - Received fresh for frozen section diagnosis labeled with the patient's name is a specimen designated thyroid vs p arathyroid tissue. The specimen consistsof a piece of pink-red soft tissue measuring 0.5 x 0.3 x 0.1 cm. The entire specimen is submitted in one cassette for frozen section diagnosis. B - Received is one container labeled with the patient name and designated right thyroid. The specimen consists of a thyroid lobectomy specimen consisting of a lobe and four variable sized pieces of detached sof t tissue. The entire specimen weighs 11.8 gm. The thyroid lobe measures 4 x 3.5 x 2 cm and the detached pieces of tissue measure in aggregate 2.5 x 2 x 0.8 cm. The external surface is partly disrupte d. The surface is inked as follows: anteriorsurface - black, posterior surface - blue. Serial sections do not reveal any mass lesion. The entire specimen is submitted in 11 casettes as follows: 1 AND 2 - detached pieces of tissue, 3-11 - thyroid lobe (3 containing most superior portion and 11 containing most inferior portion). / : 10/01/14 TC:0 CPT: 09310, 57022, 28253 HEADER OPER ATION: Thyroidectomy PRE-OPERATIVE DIAGNOSIS: Malignant neoplasm of thyroid TISSUE SUBMITTED: 1 - Thyroid vs parathyroid tissue (FS), 2 - Right thyroid MICROSCOPIC DIAGNOSIS A. Thyroid vs p arathyroid tissue, biopsy: Thyroid tissue. B. Right thyroid lobe, lobectomy: Incidental papillary microcarcinoma (1.2 x 0.2 mm). See Cancer Summary below. Colloid nodules with betsy omatoid change. THYROID CANCER SUMMARY: Procedure - lobectomy Received (fresh/in formalin) Specimen integrity - intact Specimen size - 4 x 3.5 x 2.0cms Specimen weight - 11.8 gm. Tumor focality - multifocal. Dominant tumor: single focus Tumor laterality - left lobe. Tumor size - 1.2 x 0.2 mms. Histologic type - papillary carcinoma. Variant - fo llicular variant. Architecture - follicular. Cytomorphology - classical. Margins - uninvolved by carcinoma. Tumor capsule - none. Tumor capsular invasion - not identified. Lymph-Vascular invasion - not identified. Perineural invasion - not identified. Extrathyroidal extension - not identified. Lymph nodes - not present. Additional pathologic findings - colloid nodules and adenomatoid nodules. Ancillary studies - IHC (RF15- 105). Clinical history - carcinoma of left lobe PATHOLOGIC STAGE: pT1a Nx Mx The above summary is in compliance w ith [employer] of [place] [employer] (CAP) Cancer Protocols Checklist and [place] Joint Committee on Cancer (AJCC), Staging Manual, 7th ed. AM:love 10/02/14 Signed Ham [facility] 10/03/14 <signature on file> 04-Wtl-955660:53 Bedside Glucose Comments: Test performed at:[facility] [address] [place] [address] BEDSIDE GLU 86 mg/dL (Normal) Range: 70-110 Comments: MANAGEMENT OF PATIENT CARE PER NURSING PROTOCOL 45-Pha-99775:00 IMMUNOHISTOCHEMISTRY See Note (Normal) Comments: Test performed at:[facility] [address] [place], [place] [address] Comments: Patient: JODI MOMIN : 1950 (64/F) Acct Num: [id number] Phys: Lesa Crain MD Unit Num: [id number] Loc: [facility] Specimen: [id number] Received: 10/02/14 - 1416 Spec Type: IMM ONEL TISSUES TISSUES: SPECIMEN INFORMATION: Tissue Source: Right thyroid lobectomy Clinical Info: Malignant neoplasm of thyroid Specimen Number: [id number] CPT code: 15499 x1, 14016 x3 METHODOLOGY: Deparaffinized sections of prefer/formalin-fixed tissue or PAP/DQ stained slides are incubated with monoclonal/polyclonal antibodies/oligonucleotide probes. Localization is m canelo via biotin free immunoperoxidase method. Appropriate controls are performed and reacted as expected. Results on target cell population are indicated in the following table: RESULTS: ANTIBODY / CLONE RESULT CK19 (B170/A53-B/A2.26) positive HBME1 (HBME-1) positive GAL3 (9C4) positive CD56 (GH3511/123C3.D5) negativ e These tests were developed and their performance characteristics determined by [facility]. They may not have been cleared or approved by the U.S. Food and Drug Administr atformerly [facility]. The FDA has determined that such clearance or approval is not necessary. INTERPRETATION: Right thyroid lobectomy: Papillary microcarcinoma. AM:ch 10/03/14 PHYSICIAN AND INSTITUTROCK N [facility] [address] [place] [address] Signed Ham Jo Ann 10/03/14 <signature on file> 9-Ane-147641:12 Thyroglobulin w/Anti-TG AB Comments: Test performed at:[facility] [address] [facility] [place], [place] [address] THYROGLOB 57.0 ng/mL Range: 1.5-38.5 (Abnormal) Comments: According to the National Academy of Clinical Biochemistry,the reference interval for Thyroglobulin (TG) should berelated to euthyroid patients and not for patients whounderwent thyroidectomy. TG refere nce intervals for thesepatients depend on the residual mass of the thyroid tissueleft after surgery. Establishing a post-operative baselineis recommended. The assay limit of quantitation is 0.1ng/mLThyr oglobulin measured by iZ3D ImmunometricAssayPerformed at: - [facility] [id number] Director: Jarek Coon PhD, Phone: [phone] ANTI-TG AB < 1.0 {IU/mL} Range: 0.0-0.9 (Normal) Comments: Antithyroglobulin antibodies measured by iZ3DMethodology THYROID See Note (Normal) Comments: Test performed at:[facility] [address] [place], [place] [address] 415:23 (TOTAL/LOBE) Comments: Patient: JODI MOMIN : 1950 (64/F) Acct Num: [id number] Phys: Paras CHANDRA,Lesa Unit Num: [id number] Loc: [facility] Specimen: [id number] Received: 09/10/141524 Spec Type: THY ROID TISSUES TISSUES: COMMENT THYROID CANCER SUMMARY: Procedure - hemithyroidectomy, left Received - in formalin. Specimen integrity - intact. Specimen size - Left lob e 4.5 x 4.0 x 2.5 cm; isthmus 3 x 2.5 x 2.0 cm. Specimen weight - 21.8 gm. Tumor focality - multifocal. Left lobe tumor: Tumor size - 4 x 3 millimeters (dominant tumor). Histolo gic type - papillary carcinoma. Variant - follicular variant. Architecture - follicular. Cytomorphology - classical. Margins - uninvolved by carcinoma. Tumor caps ule - none. Tumor capsular invasion - not identified. Lymph- Vascular invasion - not identified. Perineural invasion - not identified. Extrathyroidal extension - not iden tified. Isthmus tumor: Tumor size - 4.5 x 4.2 millimeters (dominant tumor). Histologic type - papillary carcinoma. Variant - follicular variant. Architecture - follicular. Cytomorphology - classical. Margins - uninvolved by carcinoma. Tumor capsule - none. Tumor capsular invasion - not identified. Lymph-Vascular invasion - not iden tified. Perineural invasion - not identified. Extrathyroidal extension - not identified. Lymph nodes - not identified. Additional pathologic findings - colloid nodules and adenom atoid nodules. Ancillary studies - immunohistochemistry (RF15-7). PATHOLOGIC STAGE: pT1a Nx Mx Four separate foci of papillary carcinoma are present in the specimen. Two arelocated in the l eft lobe and measure 4mm and 1mm in greatest dimension, respectively. Two are located in the isthmus and measure 4.5mm and 3mm in greatest dimension, respectively. The above summary is in compliance with [employer] [place] Path[employer] (CAP) Cancer Protocols Checklist and [place] Joint Committee on Cancer (AJCC), Staging Manual, 7th ed. IHC (RF15- 7) supports the above diagnosis and highlights t he multifocal nature of the disease process. Reference is made to the patient's left thyroid nodule FNA and isthmic nodule FNA (C14610) in which atypical follicular cells were identified. Case has been reviewed in consultation with Dr. Philippe who concurs with the abovediagnosis. IDC:SJ FROZEN SECTION DIAGNOSIS Left thyroid and isthmus: Multinodular goiter with cellular follicular lesio n and with mild atypia. : 09/10/14 GROSS DESCRIPTION Received fresh for frozen section diagnosis labeled with the patient's name is aspecimen designated left thyroid and isthmus. The sp ecimen consists of a thyroid lobectomy, isthmusectomy specimen weighing 21.8 gm. The left thyroid lobe measures 4.5 x 4 x 2.5 cm and isthmus measures 3 x 2.5 x 2 cm. No externalparathyroid tissue is i dentified. The specimen is inked as follows: anterior surface left lobe - black, anterior surface - blue, posterior surface - green and isthmic resection margin - yellow. Serial sections reveal multip le nodules with gelatinous surface, the largest nodule measuring 3 x 2.5 x 2 cm. Sections of the isthmus also reveal one nodule replacing the entire isthmus. In the superior portion of the left thyroi d lobe, a small cadrona solid nodule is noted measuring 0.5 cm in greatest dimension. Three frozen sections are done: 1 FS - larger nodule left lobe, 2 FS - nodule isthmus, 3 FS - smaller nodule left lobe. The entire specimen is submitted in 15 cassettes as follows: 1-3 - frozen sections as described above, 4-12 - left lobe (4 contains most superior portion and 12 contains most inferior portion), 13-1 5 - isthmus. / MARISA:love 09/10/14 TC:0 CPT: 21808 HEADER OPERATION: Left thyroid lobectomy, and isthmusectomy PRE-OPERATIVE DIAGNOSIS: Neoplasm of uncertain behavior of other and unspecified end ocrine gland, left thyroid nodule TISSUE SUBMITTED: Left thyroid and isthmus (FS) MICROSCOPIC DIAGNOSIS Left thyroid lobe and isthmus, lobectomy and isthmusectomy: Papillary thyroid car cinoma, multifocal. Adenomatoid colloid nodule. Colloid nodules. See Comment for Complete Cancer Summary. AM: 09/15/14 Signed Ham Cherry 09/16/14 <signature on file> 24-Vrx-119149:02 Bedside Glucose Comments: Test performed at:[facility] [address] [place] [address] BEDSIDE GLU 90 mg/dL (Normal) Range: 70-110 Comments: No Action RequiredMANAGEMENT OF PATIENT CARE PER NURSING PROTOCOL; ADDENDA: Hospitol 38-Qpj-87590:0 IMMUNOHISTOCHEMISTRY See Note (Normal) Comments: Test performed at:[facility] [address] [place] [address] 0 Comments: Patient: JODI MOMIN : 1950 (64/F) Acct Num: [id number] Phys: Paras CHANDRA,Lesa Unit Num: [id number] Loc: [facility] Specimen: [id number] Received: 09/12/141207 Spec Type: IMMUN O TISSUES TISSUES: SPECIMEN INFORMATION: Tissue Source: Left thyroid lobe, lobectomy Clinical Info: Left thyroid nodule Specimen Number: [id number] CPT code: 17206 x12 METHODO LOGY: Deparaffinized sections of prefer/formalin-fixed tissue or PAP/DQ stained slides are incubated with monoclonal/polyclonal antibodies/oligonucleotide probes. Localization is made via biotin free immunoperoxidase method. Appropriate controls are performed and reacted as expected. Results on target cell population are indicated in the following table: RESULTS: ANTIBODY / CLONE RESULT Block 4 CK19 (B170/A53-B/A2.26) positive HBME1 (HBME-1) positive GAL3 (9C4) positive CD56 (BQ4808/123C3.D5) negative Block 12 CK19 (B170/A53-B/A2.26) positive HBME1 (HBME-1) positive GAL3 (9C4) positive CD56 (WS6487/123C3.D5) negative Block 14 CK19 (B170/A53-B/A2.26) negative HBME1 (HBME-1) negative GAL3 (9C4) negative CD56 (VF2288/123C3.D5) positive These tests were developed and their performance characteristi cs determined by [facility]. They may not have been cleared or approved by the U.S. Food and Drug Administration. The FDA has determined that such clearance or approval is n ot necessary. INTERPRETATION: Left thyroid lobe and isthmus: Papillary thyroid carcinoma. Case has been reviewed in consultation with Dr. Philippe who concurs with the abovediagnosis. IDC:MARISA Oneil M:love 09/15/14 PHYSICIAN AND INSTITUTION [facility] [address] [place], [place] [address] Signed Ham Jo Ann 09/15/14 <signature on file> 12-Zoe-580030:26 Basic Metabolic Profile (BMP) Comments: Test performed at:[facility] [address] [place] [address] GAP 5 (Normal) Range: 5-15 CO2 31.0 mmol/L (Normal) Range: 21.0-32.0 CL 106 mmol/L (Normal) Range: 98-107 K 4.0 mmol/L (Normal) Range: 3.5-5.1 NA 142 mmol/L (Normal) Range: 136-145 CA 10.0 mg/dL (Normal) Range: 8.5-10.1 BUN/CRE 10.0 {RATIO} (Normal) Range: 10-20 Estimated CRCL 93.66 ml/min (Normal) EST GFR - AA 109 mL/min (Normal) EST GFR 90 mL/min (Normal) CREAT,SERUM 0.7 mg/dL (Normal) Range: 0.6-1.0 BUN 7 mg/dL (Normal) Range: 7-18 GLU 93 mg/dL (Normal) Range: 70-110 89-Ubw-122358:26 CBC W/Diff, Automated Comments: Test performed at:[facility] [address] [place] [address] Absolute Lymph 1.89 {X10_3/ul} Range: 0.83-4.51 (Normal) Absolute Neut 2.7 {X10_3/uL} (Normal) Range: 2.0-7.7 IM GRAN % 0.200 % (Normal) Range: 0.0-0.9 Comments: IG% - Immature Granulocytes (promyelocytes, myelocytes andmetamyelocytes) > 1% indicates that a LEFT SHIFT is Present. BASO% 0.2 % (Normal) Range: 0-1 EO% 2.5 % (Normal) Range: 0-5 MONO% 9.6 % (Normal) Range: 0-10 LY% 36.3 % (Normal) Range: 19-41 NEUT% 51.2 % (Normal) Range: 47-70 MPV 11.0 fL (Normal) Range: 6.2-12.0 PLT 248 K/mm3 (Normal) Range: 150-450 RDW SD 45.6 fL (Abnormal) Range: 35.1-43.9 RDW CV 13.8 % (Normal) Range: 11.6-14.6 MCHC 31.6 {g/gl} (Abnormal) Range: 32-36 MCH 29.1 pg (Normal) Range: 27.0-32.0 MCV 92.3 fL (Normal) Range: 81-99 HCT 43.4 % (Normal) Range: 37-47 HGB 13.7 g/dL (Normal) Range: 12.0-15.0 RBC 4.70 {M/mm3} (Normal) Range: 4.2-5.4 WBC 5.2 K/mm3 (Normal) Range: 4.4-11.0 :0 ASP RADIOLOGY (FLUID) See Note (Normal) Comments: Test performed at:[facility] [address] [place], [place] [address] 0 Comments: Patient: JODI MOMIN : 1950 (64/F) Acct Num: [id number] Phys: Lesa Crain MD Unit Num: [id number] Loc: [place] Specimen: [id number] Received: 08/26/141428 Spec Type: ASP O UT TISSUES TISSUES: COMMENT The specimen is evaluated at the time of US guided FNA biopsy by Dr. Cherry. A. Immediate Evaluation = Follicular cells present. B. Immediate Evalu ation = Follicular cells present. The two needle aspirations are somewhat similar and may represent adenomatoid change in a colloid nodule or a follicular lesion. Clinical correlation is necessary. CYTOLOGY GROSS A - Received is 1.0 ml of reddish fluid designated left thyroid nodule, FNA.. Five imprints and four paps are made from the submitted fluid and the remainder is [facility] cell block. Submitted for cytology study. B - Received is 1.0 ml of reddish fluid designated isthmic nodule, FNA. Six imprints and four paps are made from the submitted fluid and the remain santi is added to formalin for cell block. Submitted for cytology study. / AM: 08/26/14 TC:? CPT: 39729 x2, 16117 x2, 33455 x2 CYTOLOGY STUDY A - The specimen contains follicular cells in tig ht clusters with minimal colloid. B - The specimen contains minimal colloid, follicular cells in tight clusters with Hurthle cell features and pleomorphism. DIAGNOSIS CYTOLOGY A. FNA, lef t thyroid nodule (smears and cell block): Atypical follicular cells of undetermined significance. B. FNA, isthmic nodule (smears and cell block): Atypical follicular lesion with Hurthle c ell features of undetermined significance. AM: 08/27/14 HEADER OPERATION: US guided left thyroid biopsy and isthmus PRE-OPERATIVE DIAGNOSIS: Abnormal nodular on thyroid US (left) TISSUE SUBMITTED: 1 - Left thyroid nodule FNA, 2 - Isthmic nodule FNA Signed [facility] 08/27/14 <signature on file> 27-Yyy-607465:31 Hemoglobin Glyclated (HGB Comments: PATIENT NOT FASTINGPERFORMED BY: [employer] [facility] [id number] Information: [id number] A1C) (50330) Hemoglobin A1c 5.9 % (Abnormal) Range: 4.8-5.6 Comments: . Increased risk for diabetes: 5.7 - 6.4 Diabetes: >6.4 Glycemic control for adults with diabetes: <7.0 11-Cke-222015:31 T3, FREE (TRIDOTHYRONINE) (45872) Comments: PATIENT NOT FASTINGPERFORMED BY: [employer] [facility] [id number] Triiodothyronine,Free,Serum 2.6 pg/mL (Normal) Range: 2.0-4.4 31-Hrp-900320:31 T4, FREE (THYROXINE) (22310) Comments: PATIENT NOT FASTINGPERFORMED BY: [place] [id number] T4,Free(Direct) 1.29 ng/dL (Normal) Range: 0.82-1.77 :31 TSH (84555) Comments: PATIENT NOT FASTINGPERFORMED BY: [facility] Muxohr3056 [facility] [id number] TSH 0.451 {uIU/mL} (Normal) Range: 0.450-4.500 :46 IINR 1.30 (Normal) Comments: Critical Value> 3.5 :46 IPTF 15.3 {SEC} (Abnormal) Range: 11.9-14.4 Comments: Reference Range11.9 - 14.4 :40 BMP GAP 6 (Normal) Range: 5-15 CL 106 mmol/L (Normal) Range: 98-107 CO2 27.0 mmol/L (Normal) Range: 21.0-32.0 K 4.1 mmol/L (Normal) Range: 3.5-5.1 NA 139 mmol/L (Normal) Range: 136-145 CA 9.1 mg/dL (Normal) Range: 8.5-10.1 BC 14.3 {RATIO} (Normal) Range: 10-20 GFRAA 109 mL/min (Normal) GFR 90 mL/min (Normal) CREAT 0.7 mg/dL (Normal) Range: 0.6-1.0 BUN 10 mg/dL (Normal) Range: 7-18 GLU 103 mg/dL (Normal) Range: 70-110 :40 CBC MPV 10.0 fL (Normal) Range: 6.2-12.0 PLT 203 K/mm3 (Normal) Range: 150-450 RDWSD 47.4 fL (Abnormal) Range: 35.1-43.9 RDWCV 14.1 % (Normal) Range: 11.6-14.6 MCH 29.6 pg (Normal) Range: 27.0-32.0 MCHC 32.1 {g/gl} (Normal) Range: 32-36 HCT 39.3 % (Normal) Range: 37-47 MCV 92.3 fL (Normal) Range: 81-99 HGB 12.6 g/dL (Normal) Range: 12.0-15.0 RBC 4.26 {M/mm3} (Normal) Range: 4.2-5.4 WBC 5.4 K/mm3 (Normal) Range: 4.4-11.0 :40 PT INR 2.1 (Normal) PTP 23.9 s (Abnormal) Range: 11.7-14.9 :20 HgA1C , Office (19007) HgA1C , Office 6.2 % (Normal) Range: 4.6 - 7.1 :20 Blood Glucose , Office (46366) Blood Glucose , Office 100 (Normal) Comments: not fasting :46 CBCD ALC 1.49 {X10_3/ul} (Normal) Range: 0.83-4.51 ANC 2.8 {X10_3/uL} (Normal) Range: 2.0-7.7 IG% 0.200 % (Normal) Range: 0.0-0.9 Comments: IG% - Immature Granulocytes (promyelocytes, myelocytes andmetamyelocytes) > 1% indicates that a LEFT SHIFT is Present. B% 0.4 % (Normal) Range: 0-1 E% 2.5 % (Normal) Range: 0-5 M% 7.1 % (Normal) Range: 0-10 L% 31.0 % (Normal) Range: 19-41 N% 58.8 % (Normal) Range: 47-70 MPV 10.4 fL (Normal) Range: 6.2-12.0 PLT 232 K/mm3 (Normal) Range: 150-450 RDWSD 46.3 fL (Abnormal) Range: 35.1-43.9 RDWCV 14.0 % (Normal) Range: 11.6-14.6 MCHC 32.3 {g/gl} (Normal) Range: 32-36 MCH 29.3 pg (Normal) Range: 27.0-32.0 MCV 90.7 fL (Normal) Range: 81-99 HCT 39.9 % (Normal) Range: 37-47 HGB 12.9 g/dL (Normal) Range: 12.0-15.0 RBC 4.40 {M/mm3} (Normal) Range: 4.2-5.4 WBC 4.8 K/mm3 (Normal) Range: 4.4-11.0 :46 CMP GAP 7 (Normal) Range: 5-15 CL 108 mmol/L (Abnormal) Range: 98-107 CO2 25.0 mmol/L (Normal) Range: 21.0-32.0 K 4.3 mmol/L (Normal) Range: 3.5-5.1 NA 140 mmol/L (Normal) Range: 136-145 BIT 0.50 mg/dL (Normal) Range: 0.00-1.00 ALT 26 U/L (Normal) Range: 12-78 ALK 56 U/L (Normal) Range: 45-117 AST 18 U/L (Normal) Range: 15-37 AG 0.9 {RATIO} (Normal) Range: 0.9-2.4 CA 9.2 mg/dL (Normal) Range: 8.5-10.1 ALB 3.2 g/dL (Abnormal) Range: 3.4-5.0 GLOB 3.6 g/dL (Normal) Range: 2.7-4.2 TPROT 6.8 g/dL (Normal) Range: 6.4-8.2 BC 22.0 {RATIO} (Abnormal) Range: 10-20 GFRAA 160 mL/min (Normal) GFR 132 mL/min (Normal) CREAT 0.5 mg/dL (Abnormal) Range: 0.6-1.0 BUN 11 mg/dL (Normal) Range: 7-18 GLU 92 mg/dL (Normal) Range: 70-110 :46 LIPID VLDL 12 mg/dL (Normal) Range: 5-40 LDL 99 mg/dL (Normal) Range: 0-130 HDL 75 mg/dL (Normal) Comments: Reference RangeHDL <40 mg/dL Low HDL CholesterolHDL >or= 60 mg/dL High HDL Cholesterol TRIG 61 mg/dL (Normal) Range: 0-199 Comments: Serum Triglycerides Reference IntervalNormal <150 mg/dLBorderline high 150 - 199 mg/dLHigh 200 - 499 mg/ dLVery High > or = 500 mg/dL CHOL 186 mg/dL (Normal) Comments: <200 mg/dL Itlmrufms883-647 mg/dL Borderline>240 mg/dL High Risk 92-Lqp-818310:46 [facility] Comments: How was Urine Obtained? CLEAN CATCH UMUC 0 SEEN {/hpf} (Normal) UBAC 0 SEEN {/hpf} (Normal) UEPIS 0-5 SEEN {/hpf} (Normal) Range: 5-10 URBC 0 SEEN {/hpf} (Normal) Range: 0-5 ZIA 100 /ul (Abnormal) UWBC 0-5 SEEN {/hpf} (Normal) Range: 0-5 UOB Negative /ul (Normal) ANNMARIE Negative (Normal) UROBU Normal mg/dL (Normal) uPROTU Negative mg/dL (Normal) KORI 7.0 (Normal) Range: 5.0 - 8.0 SGU 1.005 (Normal) Range: 1.002-1.030 BILIU Negative mg/dL (Normal) KETU Negative mg/dL (Normal) GLUR Normal mg/dL (Normal) UCLAR Clear (Normal) UCOL Yellow (Normal) 35-Xeg-261467:13 HgA1C , Office (74493) HgA1C , Office 5.8 % (Normal) Range: 4.6 - 7.1 58-Yyn-629915:13 Blood Glucose , Office (20439) Blood Glucose , Office 170 (Normal) 9-Ucl-002054:39 TSH (38766) Comments: PATIENT WAS FASTINGPERFORMED BY: [employer] [facility] ATE6370 [facility] [id number] TSH 0.399 {uIU/mL} (Abnormal) Range: 0.450-4.500 8-Fze-575587:39 LIPID PANEL (81614) Comments: copy of labs to Dr. mcnair; PATIENT WAS FASTINGPERFORMED BY: [employer] [facility] Xssmcm5959 [facility] [id number] LDL/HDL Ratio 1.1 {ratio_units} (Normal) Range: 0.0-3.2 LDL Cholesterol Calc 93 mg/dL (Normal) Range: 0-99 VLDL Cholesterol Janae 12 mg/dL (Normal) Range: 5-40 HDL Cholesterol 88 mg/dL (Normal) Comments: According to ATP-III Guidelines, HDL-C >59 mg/dL is considered anegative risk factor for CHD. Cholesterol, Total 193 mg/dL (Normal) Range: 100-199 Triglycerides 59 mg/dL (Normal) Range: 0-149 2-Xau-643780:39 CALCIFIDIOL (06677) VIT D 25 Comments: PATIENT WAS FASTINGPERFORMED BY: [facility]6370 [facility] [id number] Vitamin D, 25-Hydroxy 36.2 ng/mL (Normal) Range: 30.0-100.0 Comments: Vitamin D deficiency has been defined by the [place] of[place]icine and an Endocrine Society practice guideline as alevel of serum 25-OH vitamin D less than 20 ng/mL (1,2).The Endocrine Society went on to further define vitamin Dinsufficiency as a level between 21 and 29 ng/mL (2).1. IOM ([place] of Medicine). 2010. Dietary reference intakes for calcium and D. [place]: The National Academies Press.2. Domingo MF, Gregor SMITH, Joaquin GARZA, et al. Evaluation, treatment, and prevention of vitamin D deficiency: an Endocrine Society clinical practice guideline. JCEM. 2010; 96(7):1911-30. [id number]-Btx-[id number]:39 MICROALBUMIN: CREATININE RATIO Comments: PATIENT WAS FASTINGPERFORMED BY: [employer] Jefeks2681 [facility] [id number] (02073) AND (17885) Microalb/Creat Ratio 10.5 {mg/g_creat} (Normal) Range: 0.0-30.0 Microalbumin, Urine 1.3 ug/mL (Normal) Range: 0.0-17.0 Creatinine, Urine 12.4 mg/dL (Abnormal) Range: 15.0-278.0 5-Jaf-366766:39 METABOLIC PANEL, COMPREHENSIVE Comments: PATIENT WAS FASTINGPERFORMED BY: [facility]6370 [facility] [id number] (71726) ALT (SGPT) 26 [iU]/L (Normal) Range: 0-32 AST (SGOT) 38 [iU]/L (Normal) Range: 0-40 Alkaline Phosphatase, S 65 [iU]/L (Normal) Range: 39-117 Bilirubin, Total 0.4 mg/dL (Normal) Range: 0.0-1.2 A/G Ratio 1.4 (Normal) Range: 1.1-2.5 Globulin, Total 2.7 g/dL (Normal) Range: 1.5-4.5 Albumin, Serum 3.8 g/dL (Normal) Range: 3.6-4.8 Protein, Total, Serum 6.5 g/dL (Normal) Range: 6.0-8.5 Calcium, Serum 10.2 mg/dL (Normal) Range: 8.6-10.2 Carbon Dioxide, Total 24 mmol/L (Normal) Range: 19-28 Chloride, Serum 104 mmol/L (Normal) Range: 97-108 Potassium, Serum 4.3 mmol/L (Normal) Range: 3.5-5.2 Sodium, Serum 143 mmol/L (Normal) Range: 134-144 BUN/Creatinine Ratio 22 (Normal) Range: 11-26 eGFR If Africn Am 109 mL/min/1.73 (Normal) eGFR If NonAfricn Am 95 mL/min/1.73 (Normal) BUN 15 mg/dL (Normal) Range: 8-27 Creatinine, Serum 0.67 mg/dL (Normal) Range: 0.57-1.00 Glucose, Serum 103 mg/dL (Abnormal) Range: 65-99 7-Aqo-127234:39 CBC WITH MANUAL DIFF Comments: PATIENT WAS FASTINGPERFORMED BY: [facility]6370 [facility] [id number] Information: SRC: URINE [id number] CC:[id number] (57158) Immature Grans (Abs) 0.0 {x10E3/uL} (Normal) Range: 0.0-0.1 Immature Granulocytes 0 % (Normal) Range: 0-2 Baso (Absolute) 0.0 {x10E3/uL} (Normal) Range: 0.0-0.2 Eos (Absolute) 0.1 {x10E3/uL} (Normal) Range: 0.0-0.4 Monocytes(Absolute) 0.4 {x10E3/uL} (Normal) Range: 0.1-0.9 Lymphs (Absolute) 1.7 {x10E3/uL} (Normal) Range: 0.7-3.1 Neutrophils (Absolute) 2.6 {x10E3/uL} (Normal) Range: 1.4-7.0 Basos 1 % (Normal) Range: 0-3 Eos 3 % (Normal) Range: 0-5 Monocytes 8 % (Normal) Range: 4-12 Lymphs 36 % (Normal) Range: 14-46 Neutrophils 52 % (Normal) Range: 40-74 Platelets 261 {x10E3/uL} (Normal) Range: 155-379 RDW 13.7 % (Normal) Range: 12.3-15.4 MCHC 32.5 g/dL (Normal) Range: 31.5-35.7 MCH 29.5 pg (Normal) Range: 26.6-33.0 MCV 91 fL (Normal) Range: 79-97 Hematocrit 40.0 % (Normal) Range: 34.0-46.6 Hemoglobin 13.0 g/dL (Normal) Range: 11.1-15.9 RBC 4.40 {x10E6/uL} (Normal) Range: 3.77-5.28 WBC 4.8 {x10E3/uL} (Normal) Range: 3.4-10.8 :17 Blood Glucose , Office (48408) Blood Glucose , Office 109 (Normal) Comments: fasting :17 HgA1C , Office (20532) HgA1C , Office 6.0 % (Normal) Range: 4.6 - 7.1 3-Npi-317724:57 Blood Glucose , Office (85599) Blood Glucose , Office 93 (Normal) 1-Oee-625206:57 HgA1C , Office (92962) HgA1C , Office 6.0 % (Normal) Range: 4.6 - 7.1 :30 CBC, Platelets & Auto Diff Comments: today; PATIENT NOT FASTINGPERFORMED BY: [facility]CoKind[facility] at RahwayXnjmpy5005 [facility] [id number] Information: [id number] (02497) Immature Grans (Abs) 0.0 {x10E3/uL} (Normal) Range: 0.0-0.1 Immature Granulocytes 0 % (Normal) Range: 0-2 Baso (Absolute) 0.0 {x10E3/uL} (Normal) Range: 0.0-0.2 Eos (Absolute) 0.2 {x10E3/uL} (Normal) Range: 0.0-0.4 Monocytes(Absolute) 0.4 {x10E3/uL} (Normal) Range: 0.1-1.0 Lymphs (Absolute) 2.1 {x10E3/uL} (Normal) Range: 0.7-4.5 Neutrophils (Absolute) 2.6 {x10E3/uL} (Normal) Range: 1.8-7.8 Basos 0 % (Normal) Range: 0-3 Eos 3 % (Normal) Range: 0-7 Monocytes 8 % (Normal) Range: 4-13 Lymphs 40 % (Normal) Range: 14-46 Neutrophils 49 % (Normal) Range: 40-74 Platelets 220 {x10E3/uL} (Normal) Range: 140-415 RDW 14.3 % (Normal) Range: 12.3-15.4 MCHC 32.8 g/dL (Normal) Range: 31.5-35.7 MCH 29.5 pg (Normal) Range: 26.6-33.0 MCV 90 fL (Normal) Range: 79-97 Hematocrit 39.3 % (Normal) Range: 34.0-46.6 Hemoglobin 12.9 g/dL (Normal) Range: 11.1-15.9 RBC 4.37 {x10E6/uL} (Normal) Range: 3.77-5.28 WBC 5.3 {x10E3/uL} (Normal) Range: 4.0-10.5 :52 HgA1C , Office (56981) HgA1C , Office 5.9 % (Normal) Range: 4.6 - 7.1 :52 Blood Glucose , Office (75760) Blood Glucose , Office 126 (Normal) 87-Oyj-648548:21 BILAT SCRN DIGITAL & CAD Radiology Report See Note (Normal) Comments: MAMMOGRAPHY - BILATERAL SCREENING REASON FOR EXAM: Female, 63 years old. Routine annual screeningexamination. PERTINENT HISTORY: Non-contributory. TECHNIQUE: Digital examination. Med iolateral ob lique (MLO) andcraniocaudad (CC) views of both breasts were obtained. CAD: CAD wasperformed on this study. COMPARISON: Comparison is made with prior studies dated May 19nd May 04, 2006. FINDINGS:The breast composition is composed of scattered fibroglandular tissuesranging from 25% to 50% of the breast. There are no dominant masses or suspicious calcifications. No other significant abno rmalities are identified. There has been nosignificant change since the prior study. IMPRESSION:Stable bilateral screening mammogram. Yearly follow-up recommended. (A) ASSESSMENT CATEGORY:BIRADS Cat egory 2: Benign finding(s). A letter regarding these resultswill be sent to the patient by the facility within 30 days. Approximately 10% of breast cancers are not detected by mammography. Anormal ma mmogram should not delay biopsy of a clinically suspiciousabnormality. Signed:Aaron Shrestha M.D.January 18, 2013 at 1:47:41 PM [id number] Signed GP/GP If you are the referring physi celio and would like to consult with theradiologist who provided this interpretation, please contact Amy Carpio at [phone]. If this radiologist is unavailable, youwill be directed to an other radiologist to assist. If you are a patient with a question regarding this report, pleasecontactyour referring physician directly. Professional Interpretation Provided By: [employer], Phone , These documents contain legally protected and confidential healthinformation intended only for the use of the individual or entity namedabove. If you are not the intended reci pient, you are hereby notifiedthatany disclosure, copying, distribution, or other use of these documents isstrictly prohibited. If you have received this information in error,pleasenotify the sender imm ediately and arrange for the return or destructionofthese documents. Dictated on 01/18/13 1321 by Josiah Shrestha MDranscribed on 01/18/13 1349 by ITS IMPORTSign by Aaron Shrestha MD on 01/09 1350 Sign by: Aaron Shrestha MD 18-Jan-2013 B12 539 pg/mL Range: 211-911 11:51 (Normal) Comments: Effective 201218-Jan-201359-Wxo-889819:51 CBCMD ANC 1.8 3/uL (Abnormal) Range: 2.0-7.7 IG% 0.00 % (Normal) Range: 0.0-0.0 B% 0.3 % (Normal) Range: 0-1 E% 2.6 % (Normal) Range: 0-5 M% 10.9 % (Abnormal) Range: 0-10 L% 33.8 % (Normal) Range: 19-41 N% 52.4 % (Normal) Range: 47-70 MPV 10.3 fL (Normal) Range: 6.2-12.0 PLT 213 K/mm3 (Normal) Range: 150-450 RDWSD 45.5 fL (Abnormal) Range: 35.1-43.9 RDWCV 13.9 % (Normal) Range: 11.6-14.6 MCHC 31.8 g/dL (Abnormal) Range: 32-36 MCH 29.1 pg (Normal) Range: 27.0-32.0 MCV 91.4 fL (Normal) Range: 81-99 HCT 39.3 % (Normal) Range: 37-47 HGB 12.5 g/dL (Normal) Range: 12.0-15.0 RBC 4.30 {M/mm3} (Normal) Range: 4.2-5.4 WBC 3.4 {k/mm3} (Abnormal) Range: 4.4-11.0 07-Sea-009124:51 CMP GAP 6 (Normal) Range: 5-15 CL 108 mmol/L (Abnormal) Range: 98-107 CO2 29.0 mmol/L (Normal) Range: 21.0-32.0 K 3.9 mmol/L (Normal) Range: 3.5-5.1 NA 143 mmol/L (Normal) Range: 136-145 BIT 0.50 mg/dL (Normal) Range: 0.00-1.00 ALT 30 U/L (Normal) Range: 12-78 ALK 57 U/L (Normal) Range: 50-136 AST 17 U/L (Normal) Range: 15-37 CA 9.5 mg/dL (Normal) Range: 8.5-10.1 AG 1.0 {RATIO} (Normal) Range: 0.9-2.4 GLOB 3.4 g/dL (Normal) Range: 2.7-4.2 ALB 3.5 g/dL (Normal) Range: 3.4-5.0 TPROT 6.9 g/dL (Normal) Range: 6.4-8.2 BC 18.6 {RATIO} (Normal) Range: 10-20 GFR 90 mL/min (Normal) GFRAA 109 mL/min (Normal) BUN 13 mg/dL (Normal) Range: 7-18 CREAT 0.7 mg/dL (Normal) Range: 0.6-1.0 GLU 89 mg/dL (Normal) Range: 70-110 :51 DOMO 22 ng/mL (Normal) Range: 8-252 :51 LIPID LDL 108 mg/dL (Normal) Range: 0-130 VLDL 14 mg/dL (Normal) Range: 5-40 CHOL 196 mg/dL (Normal) Comments: <200 mg/dL Rzjejykeq403-538 mg/dL Borderline>240 mg/dL High Risk HDL 74 mg/dL (Normal) Comments: Reference RangeHDL <40 mg/dL Low HDL CholesterolHDL >or= 60 mg/dL High HDL Cholesterol TRIG 69 mg/dL (Normal) Comments: Serum Triglycerides Reference IntervalNormal <150 mg/dLBorderline high 150 - 199 mg/dLHigh 200 - 499 mg/ dLVery High > or = 500 mg/dL :51 MG 1.9 mg/dL (Normal) Range: 1.8-2.4 :51 MIACRE MIALB 20.8 mg/L (Normal) tMICROCREAT 12.6 {mg/g_CRE} (Normal) CREU 163.8 mg/dL (Normal) :51 PHOS 3.2 mg/dL (Normal) Range: 2.5-4.9 :51 DIAMANTE 46 ug/dL (Normal) Range: 18-77 Comments: Performed at: [address] [id number] Director: Preston Zavala MD, Phone: [phone] VITD 107.7 ng/mL (Normal) Comments: Vitamin D 25(OH) Status RangeDeficiency <20 ng/mL (50nmol/L)Insufficiency 20 - 30 ng/mL (50 - 75 nmol/L)Sufficiency 30 - 100 ng/mL (75 - 250 nm ol/L)Toxicity >100 ng/mL (250 nmol/L)Effective 2012:51 ZI 77 ug/dL (Normal) Range: 56-134 Comments: Detection Limit = 5 :26 Blood Glucose , Office (10992) Blood Glucose , Office 115 (Normal) :26 HgA1C , Office (41552) HgA1C , Office 5.7 % (Normal) Range: 4.6 - 7.1 :53 HgA1C , Office (69453) HgA1C , Office 5.8 % (Normal) Range: 4.6 - 7.1 :53 Blood Glucose , Office (86752) Blood Glucose , Office 103 (Normal) :30 CA 9.0 mg/dL (Normal) Range: 8.5-10.1 :30 LIPID VLDL 9 mg/dL (Normal) Range: 5-40 LDL 107 mg/dL (Normal) Range: 0-130 HDL 79 mg/dL (Normal) Comments: Reference Range HDL <40 mg/dL Low HDL Cholesterol HDL >or= 60 mg/dL High HDL Cholesterol TRIG 44 mg/dL (Normal) Comments: Serum Triglycerides Reference Interval Normal <150 mg/dL Borderline high 150 - 199 mg/dL High 200 - 499 mg/dL Very High > or = 500 mg/dL CHOL 195 mg/dL (Normal) Comments: <200 mg/dL Desirable 200-240 mg/dL Borderline >240 mg/dL High Risk :30 LIVER BID 0.14 mg/dL (Normal) Range: 0.00-0.30 BIT 0.50 mg/dL (Normal) Range: 0.00-1.00 ALT 31 U/L (Normal) Range: 12-78 ALK 64 U/L (Normal) Range: 50-136 AST 14 U/L (Abnormal) Range: 15-37 ALB 3.3 g/dL (Abnormal) Range: 3.4-5.0 TPROT 6.8 g/dL (Normal) Range: 6.4-8.2 :30 PTHIN 55 pg/mL (Normal) Range: 14-72 95-Ade-917351:30 VITD 42.8 ng/mL (Normal) Range: 30.0-100.0 Comments: Vitamin D deficiency has been defined by the [place] of[place]icine and an Endocrine Society practice guideline as alevel of serum 25-OH vitamin D less than 20 ng/mL (1,2).The Endocrine Society went on to further define vitamin Dinsufficiency as a level between 21 and 29 ng/mL (2).1. IOM ([place] of Medicine). 2010. Dietary reference intakes for calcium and D. [place]: The National Academies Press.2. Domingo MF, Gregor SMITH, Joaquin GARZA, et al. Evaluation, treatment, and prevention of vitamin D deficiency: an Endocrine Society clinical practice guideline. JCEM. 2010; 96(7): 1911-30.Performed at: [facility] [id number] Director: Jarek Coon PhD, Phone: [phone] 0-Kap-497054:16 Blood Glucose , Office (75817) Blood Glucose , Office 127 (Normal) 0-Nvl-450391:09 HgA1C , Office (34495) HgA1C , Office 5.8 % (Normal) Range: 4.6 - 7.1 :12 B12 907 pg/mL (Normal) Range: 211-946 :12 CBCMD RBCM NORM C+C {NORMAL} (Normal) PE ADEQUATE (Normal) MON 8 % (Normal) Range: 0-10 LYMPH 35 % (Normal) Range: 19-41 PMN 57 % (Normal) Range: 47-70 OSWALD 100 (Normal) ANC 2.6 3/uL (Normal) Range: 2.0-7.7 PLT 197 K/mm3 (Normal) Range: 150-450 RDW 13.9 % (Normal) Range: 11.6-14.6 MCHC 33.7 g/dL (Normal) Range: 32-36 MCH 30.3 pg (Normal) Range: 27.0-32.0 MCV 90.1 fL (Normal) Range: 81-99 HCT 39.1 % (Normal) Range: 37-47 HGB 13.2 g.dL (Normal) Range: 12.0-15.0 RBC 4.34 {M/mm3} (Normal) Range: 4.2-5.4 WBC 4.4 K/mm3 (Normal) Range: 4.4-11.0 :12 CMP GAP 7 (Normal) Range: 5-15 CO2 27.0 mmol/L (Normal) Range: 21.0-32.0 CL 105 mmol/L (Normal) Range: 98-107 K 4.0 mmol/L (Normal) Range: 3.5-5.1 NA 139 mmol/L (Normal) Range: 136-145 BIT 0.40 mg/dL (Normal) Range: 0.00-1.00 ALT 21 U/L (Normal) Range: 12-78 ALK 50 U/L (Normal) Range: 50-136 AST 16 U/L (Normal) Range: 15-37 CA 9.3 mg/dL (Normal) Range: 8.5-10.1 AG 1.0 {RATIO} (Normal) Range: 0.9-2.4 GLOB 3.4 g/dL (Normal) Range: 2.7-4.2 ALB 3.5 g/dL (Normal) Range: 3.4-5.0 TPROT 6.9 g/dL (Normal) Range: 6.4-8.2 BC 18.0 {RATIO} (Normal) Range: 10-20 GFRAA 161 mL/min (Normal) GFR 133 mL/min (Normal) CREAT 0.5 mg/dL (Abnormal) Range: 0.6-1.0 BUN 9 mg/dL (Normal) Range: 7-18 GLU 94 mg/dL (Normal) Range: 70-110 :12 FE 44 ug/dL (Abnormal) Range: 50-170 :12 DOMO 31 ng/mL (Normal) Range: 8-252 :12 FOL 32.70 ng/mL (Abnormal) Range: 3.1-17.5 :12 HOMO 8.0 umol/L (Normal) Range: 3.2-10.7 :12 LIPID VLDL 12 mg/dL (Normal) Range: 5-40 LDL 128 mg/dL (Normal) Range: 0-130 HDL 67 mg/dL (Normal) Comments: Reference Range HDL <40 mg/dL Low HDL Cholesterol HDL >or= 60 mg/dL High HDL Cholesterol TRIG 59 mg/dL (Normal) Comments: Serum Triglycerides Reference Interval Normal <150 mg/dL Borderline high 150 - 199 mg/dL High 200 - 499 mg/dL Very High > or = 500 mg/dL CHOL 207 mg/dL (Abnormal) Comments: <200 mg/dL Desirable 200-240 mg/dL Borderline >240 mg/dL High Risk :12 MG 2.2 mg/dL (Normal) Range: 1.8-2.4 :12 MIACRE tMICROCREAT <TEST NOT PERFORMED> {mg/g_CRE} (Normal) MIALB < 5.0 mg/L (Normal) CREU 28.9 mg/dL (Normal) :12 MISC2 . (Normal) Comments: TEST RESULT LIMITSZinc, Whole Blood 560 ug/dL 440 - 860 TESTING PERFORMED AT [facility]. ORIGINAL R EPORT ON FILE IN LAB CONTAINS ADDITIONAL TEST SITE INFORMATION. :12 PHOS 3.9 mg/dL (Normal) Range: 2.5-4.9 :12 PTHIN 94 pg/mL (Abnormal) Range: 14-72 :12 TSH 0.30 {uIU/mL} (Abnormal) Range: 0.358-3.74 :12 DIAMANTE 39 ug/dL (Normal) Range: 18-77 Comments: Performed at: [address] [id number] Director: Monserrat Dai MD, Phone: [phone] at: [place] [id number] Director: Preston Zavala MD, Phone: [phone] :[phone] VITD 47.8 ng/mL (Normal) Range: 30.0-100.0 Comments: Vitamin D deficiency has been defined by the [place] of[place]icine and an Endocrine Society practice guideline as alevel of serum 25-OH vitamin D less than 20 ng/mL (1,2).The Endocrine Society went on to further define vitamin Dinsufficiency as a level between 21 and 29 ng/mL (2).1. IOM ([place] of Medicine). 2010. Dietary reference intakes for calcium and D. [place]: The National Academies Press.2. Domingo MF, Gregor [place], Joaquin GARZA, et al. Evaluation, treatment, and prevention of vitamin D deficiency: an Endocrine Society clinical practice guideline. JCEM. 2010; 96(7):1911-30. :42 HgA1C , Office (51043) HgA1C , Office 5.9 % (Normal) Range: 4.6 - 7.1 :42 Blood Glucose , Office (30526) Blood Glucose , Office 119 (Normal) :52 CKMB CPKMB 1.9 ng/mL (Normal) Range: 0.0-5.0 Comments: CK-MB and RI Interpretation MB Relative Index Non-AMI <or= 5 NA Indeterminate > 5 <or= 4 AMI > 5 > 4 CPK 129 U/L (Normal) Range: 26-192 :52 CPKISO tCKBB 0 % (Normal) Comments: Performed at: - [facility] [id number] Director: Monserrat Dai MD, Phone: [phone] tCKMB 0 % (Normal) Range: 0-3 tCKMACI 0 % (Normal) tCKMACII 0 % (Normal) tCKMM 100 % (Normal) Range: 97-100 tCPK 123 U/L (Normal) Range: 24-173 :30 HgA1C , Office (85532) HgA1C , Office 5.9 % (Normal) Range: 4.6 - 7.1 :22 Blood Glucose , Office (94343) Blood Glucose , 85 (Normal) Office :06 VIT D,25 61181 45.3 ng/mL (Normal) Range: 30.0-100.0 Comments: Vitamin D deficiency has been defined by the [place] [employer] and an Endocrine Society practice guideline as alevel of serum 25-OH vitamin D less than 20 ng/mL (1,2).The Endocrine Society went on to further define vitamin Dinsufficiency as a level between 21 and 29 ng/mL (2).1. IOM ([place] [employer]). 2011. Dietary reference intakes for calcium and D. [place]: The National Academies Press.2. Domingo MF, Gregor SMITH, Joaquin GARZA, et al. Evaluation, treatment, and prevention of vitamin D deficiency: an Endocrine Society clinical practice guideline. JCEM. 2010; 96(7): 1911-30.Performed at: [address] [id number] Director: Monserrat Dai MD, Phone: [phone] [phone] DEXA BONE DENSITY STUDY (HP) Radiology Report See Note (Normal) Comments: PROCEDURE: DUAL ENERGY X-RAY ABSORPTIOMETRY / DEXA. REASON FOR EXAM: Female, 61 years old. The patient is postmenopausal. TECHNIQUE: Bone Mineral Density (BMD) measurements of lumbar s pine andbila teral hips were obtained. COMPARISON: Comparison is made with prior examination dated . FINDINGS: Lumbar Spine (L1-L4): g/cm2 (0.989) / T- score (-1.6) / Z-score (-0.3)Left Femur T otal: g/cm2 (0.726) / T-score (-2.2) / Z-score (-1.0)Right Femur Total: g/cm2 (0.727) / T-score (-2.2) / Z-score (-1.0) Since prior study, there has been a loss of 16.1% in bone density of the left hip. IMPRESSION:The patient is considered osteopenic, as outlined above, according toWorldHealth Organization (WHO) criteria. Fracture risk is moderate. Reference Information:The T-score is the nu mber of standard deviations above or below thestandard which is normal for young adults at their peak bone mineraldensity. The World Health Organization (WHO) interprets the T-scores asfollows: Above - 1 Normal bone densityBetween -1 and -2.5 OsteopeniaEqual to / or below -2.5 Osteoporosis As a practical clinical guideline, osteopenia may be graded as follows:Mild -1 through -1.5Moderate -1.6 through -2.0Severe -2.1 through -2.4 The Z-score is the number of standard deviations above or below age-matchedcontrols. A Z-score of less than - 1.5 would be considered abnormal. References:1. NIH Osteoporosis and Related Bone Diseases http://www.osteo.org2. International Society for Clinical Densitometry http://www.iscd.org3. National Osteoporosis Foundation http://www.nof.org To consult with a radiologist regarding this report, please call our [id number] line @ Dictated on 09/20/11 1459 by Matthew CHANDRA,Josiahranscribed on 09/20/11 1624 by ITS IMPORTSign by Haley solis MD,Aaron on 09/20/11 1625 Sign by: Aaron Shrestha MD : INR ISTAT 1.40 (Normal) 42 : PROTIME ISTAT 16.3 {SEC} (Normal) 42 :45 B12/FOLATES Comments: DR. MCNAIR ORDERED LIPID LIVERDR. BONEZZI ORDERED MICRO CREA, CMP LIPID CBCMDDR. CHLYSTA ORDERED CBC CMP B12 FO IBC LIPID DOMO VITD PTHTHIAMINE TSH ZINC FOLATES 26.50 ng/mL (Abnormal) Range: 3.1-17.5 VITAMIN B12 977 pg/mL (Normal) Range: 254-1320 :45 CBCD,SMEAR DIFF Comments: DR. MCNAIR ORDERED LIPID LIVERDR. BONEZZI ORDERED MICRO CREA, CMP LIPID CBCMDDR. CHLYSTA ORDERED CBC CMP B12 FO IBC LIPID DOMO VITD PTHTHIAMINE TSH ZINC PLT EST SeeNote (Normal) Comments: Result: ADEQUATE PLT MORPH GIANT (Normal) RED CELL MORPH SeeNote {NORMAL} (Normal) Comments: Result: NORM C+C ABSOLUTE NEUT 2.2 3/uL (Normal) Range: 2.0-7.7 CELLS COUNTED 100 (Normal) EOS 2 % (Normal) Range: 0-5 LYMPH 33 % (Normal) Range: 19-41 MCH 30.5 pg (Normal) Range: 27.0-32.0 MCHC 33.8 g/dL (Normal) Range: 32-36 MONOCYTE 8 % (Normal) Range: 0-10 PLT 217 K/mm3 (Normal) Range: 150-450 RDW 15.9 % (Abnormal) Range: 11.6-14.6 SEGS 57 % (Normal) Range: 47-70 HCT 39.9 % (Normal) Range: 37-47 HGB 13.5 g/dL (Normal) Range: 12.0-16.0 MCV 90.0 fL (Normal) Range: 81-99 RBC 4.44 {M/mm3} (Normal) Range: 4.2-5.4 WBC 3.9 K/mm3 (Abnormal) Range: 4.4-11.0 0-Fhx-695982:45 COMP METABOLIC Comments: DR. MCNAIR ORDERED LIPID LIVERDR. BONEZZI ORDERED MICRO CREA, CMP LIPID CBCMDDR. CHLYSTA ORDERED CBC CMP B12 FO IBC LIPID DOMO VITD PTHTHIAMINE TSH ZINC A/G 0.9 {RATIO} (Normal) Range: 0.9-2.4 ALB 3.4 g/dL (Normal) Range: 3.4-5.0 ALK P 75 U/L (Normal) Range: 50-136 ALT 23 U/L (Normal) Range: 12-78 AST 10 U/L (Abnormal) Range: 15-37 CA 9.3 mg/dL (Normal) Range: 8.5-10.1 CL 104 mmol/L (Normal) Range: 98-107 CO2 26.0 mmol/L (Normal) Range: 21.0-32.0 GAP 7 (Normal) Range: 5-15 GLOB 3.6 g/dL (Normal) Range: 2.7-4.2 K 4.0 mmol/L (Normal) Range: 3.5-5.1 NA 137 mmol/L (Normal) Range: 136-145 T BILI 0.50 mg/dL (Normal) Range: 0.00-1.00 BUN 8 mg/dL (Normal) Range: 7-18 BUN/CRE 13.3 {RATIO} (Normal) Range: 10-20 CREAT,SERUM 0.6 mg/dL (Normal) Range: 0.6-1.0 EST GFR 109 mL/min (Normal) EST GFR - AA 132 mL/min (Normal) GLU 90 mg/dL (Normal) Range: 70-110 T PROT 7.0 g/dL (Normal) Range: 6.4-8.2 :45 D BILI 0.13 mg/dL (Normal) Comments: DR. MCNAIR ORDERED LIPID LIVERDR. BONEZZI ORDERED MICRO CREA, CMP LIPID CBCMDDR. CHLYSTA ORDERED CBC CMP B12 FO IBC LIPID DOMO VITD PTHTHIAMINE TSH ZINC Range: 0.00-0.30 :45 FERRITIN 83 ng/mL (Normal) Comments: DR. MCNAIR ORDERED LIPID LIVERDR. BONEZZI ORDERED MICRO CREA, CMP LIPID CBCMDDR. CHLYSTA ORDERED CBC CMP B12 FO IBC LIPID DOMO VITD PTHTHIAMINE TSH ZINC Range: 8-252 :45 IRON+TIBC Comments: DR. MCNAIR ORDERED LIPID LIVERDR. BONEZZI ORDERED MICRO CREA, CMP LIPID CBCMDDR. CHLYSTA ORDERED CBC CMP B12 FO IBC LIPID DOMO VITD PTHTHIAMINE TSH ZINC IRON 56 ug/dL (Normal) Range: 50-170 IRON SATURATION 15.9 % (Normal) Range: 15.0-55.0 TIBC 352 ug/dL (Normal) Range: 250-450 :45 LIPID Comments: DR. MCNAIR ORDERED LIPID LIVERDR. BONEZZI ORDERED MICRO CREA, CMP LIPID CBCMDDR. CHLYSTA ORDERED CBC CMP B12 FO IBC LIPID DOMO VITD PTHTHIAMINE TSH ZINC HDL 46 mg/dL (Normal) Comments: Reference RangeHDL <40 mg/dL Low HDL CholesterolHDL >or= 60 mg/dL High HDL Cholesterol LDL 106 mg/dL (Normal) Range: 0-130 TRIG 105 mg/dL (Normal) Comments: Serum Triglycerides Reference IntervalNormal <150 mg/dLBorderline high 150 - 199 mg/dLHigh 200 - 499 mg/ dLVery High > or = 500 mg/dL VLDL 21 mg/dL (Normal) Range: 5-40 CHOL 173 mg/dL (Normal) Comments: <200 mg/dL Dxcjtfqsy229-281 mg/dL Borderline>240 mg/dL High Risk :45 MICROALB:CRE UR Comments: DR. MCNAIR ORDERED LIPID LIVERDR. BONEZZI ORDERED MICRO CREA, CMP LIPID CBCMDDR. CHLYSTA ORDERED CBC CMP B12 FO IBC LIPID DOMO VITD PTHTHIAMINE TSH ZINC MALB:CREAT <TEST NOT PERFORMED> {mg/g_CRE} (Normal) MICROALBUMIN,UR < 5.0 mg/L (Normal) UR CREAT 41.2 mg/dL (Normal) :45 PRO TIME Comments: DR. MCNAIR ORDERED LIPID LIVER PT INRDR. BONEZZI ORDERED MICRO CREA, CMP LIPID CBCMDDR. CHLYSTA ORDERED CBC CMP B12 FO IBC LIPID DOMO VITD PTHTHIAMINE TSH ZINC INR 1.8 (Normal) PROTIME 18.5 s (Abnormal) Range: 9.1-11.7 :45 PTH,Intact 83 pg/mL (Abnormal) Comments: DR. MCNAIR ORDERED LIPID LIVERDR. BONEZZI ORDERED MICRO CREA, CMP LIPID CBCMDDR. CHLYSTA ORDERED CBC CMP B12 FO IBC LIPID DOMO VITD PTHTHIAMINE TSH ZINC Range: 14-72 :45 TSH 0.54 {uIU/mL} (Normal) Comments: DR. MCNAIR ORDERED LIPID LIVERDR. BONEZZI ORDERED MICRO CREA, CMP LIPID CBCMDDR. CHLYSTA ORDERED CBC CMP B12 FO IBC LIPID DOMO VITD PTHTHIAMINE TSH ZINC Range: 0.358-3.74 :45 VIT B1 [id number] 265.0 nmol/L (Abnormal) Comments: DR. MCNAIR ORDERED LIPID LIVERDR. BONEZZI ORDERED MICRO CREA, CMP LIPID CBCMDDR. CHLYSTA ORDERED CBC CMP B12 FO IBC LIPID DOMO VITD PTHTHIAMINE TSH ZINC Range: 66.5-200.0 :45 VIT D,25 18799 52.1 ng/mL (Normal) Comments: DR. MCNAIR ORDERED LIPID LIVERDR. BONEZZI ORDERED MICRO CREA, CMP LIPID CBCMDDR. CHLYSTA ORDERED CBC CMP B12 FO IBC LIPID DOMO VITD PTHTHIAMINE TSH ZINC Range: 32.0-100.0 Comments: Recent studies consider the lower limit of 32.0 ng/mL to dorie threshold for optimal health.Black BW. J Nutr. 2004;135(2):317-22. 2-Bpv-677025:45 ZINC, 1800 99 ug/dL (Normal) Comments: DR. MCNAIR ORDERED LIPID LIVERDR. BONEZZI ORDERED MICRO CREA, CMP LIPID CBCMDDR. CHLYSTA ORDERED CBC CMP B12 FO IBC LIPID DOMO VITD PTHTHIAMINE TSH ZINC Range: 70-150 Comments: Detection Limit = 5Performed at: [email or web address] [id number] Director: Monserrat Dai MDPerformed at: [facility] [employer] [id number] Director: Preston Zavala MD 14-Ewg-490262:15 INR ISTAT 1.70 (Normal) 98-Wch-282274:15 PROTIME ISTAT 20.1 {SEC} (Normal) 92-Gjf-208276:10 VIT B1 915330 246.3 nmol/L (Abnormal) Range: 66.5-200.0 :10 VIT D,25 56463 52.4 ng/mL (Normal) Range: 32.0-100.0 Comments: Recent studies consider the lower limit of 32.0 ng/mL to dorie threshold for optimal health.Black BW. J Nutr. 2004;135(2):317-22. 88-Tnv-255286:10 ZINC, 1800 87 ug/dL (Normal) Range: 70-150 Comments: Detection Limit = 5Performed At: [facility] [id number] At: [address] [id number] 7-Dhm-675034:46 L/S SPINE,MIN 4 VIEWS (MT) Radiology Report See Note (Normal) Comments: Exam Number: [id number] LUMBOSACRAL SPINE AP, lateral and oblique views were obtained. HISTORYThimaira is a 59-year-old female patient with history of low back painfollowing a fall. FINDINGSThere is a mild d egree of disc space narrowing at the L4-L5 level witha moderate degree of disc space narrowing at the L3-L4 and L5-Q4kppmlg. There is also evidence of facet joint osteoarthritis withanterior osteophyte formation at the L3-L4 level. There is alsoevidence of osteophyte formation in the lower dorsal and upper lumbarspine. There is no evidence of spondylosis or spondylolisthesis.There is a 1.6-cm, 1.5- cm sclerotic focus in the lateral aspect of theleft iliac bone. This may represent a bone island. Correlation witha bone scan is suggested for further evaluation. IMPRESSIONDegenerative change as prev iously described. There is no evidence ofspondylolysis or spondylolisthesis. Reported By: AARON SHRESTHA 9-Frc-967254:44 HgA1C , Office (46122) HgA1C , Office 6.2 % (Normal) Range: 4.6 - 7.1 8-Rey-835727:44 Blood Glucose , Office (63645) Blood Glucose , Office 110 (Normal) 21-Zpm-754253:46 PRO TIME INR 2.1 (Normal) PROTIME 23.1 s (Abnormal) Range: 9.1-11.7 40-Zdl-389080:38 INR ISTAT 1.0 (Normal) 83-Qkc-696795:38 PROTIME ISTAT 15.0 {SEC} (Normal) 12-Ikb-770496:38 PROTIME ISTAT INR ISTAT 1.3 (Normal) PROTIME ISTAT 14.9 {SEC} (Normal) 26-Scy-590181:05 Blood Glucose , Office (91294) Blood Glucose , Office 111 (Normal) 25-Kyf-282234:35 ABG Comments: COMMENTS: HYPOXIAIS THE BLOOD GAS TO BE DRAWN ON ROOM AIR?: Y MIRIAM TEST PASS (Normal) ctHb 14.7 g/dL (Normal) Range: 12.0-16.0 DRAW SITE (ART) SeeNote (Normal) Comments: Result: RIGHT RADIAL FO2(I) 21.0 % (Normal) HCT 43.0 % (Normal) Range: 39-50 P02 63 {mm_HG} (Abnormal) Range: 75-100 pcBASE(B) 2.8 mmol/L (Abnormal) pcHCO3-(P) 27.9 mmol/L (Abnormal) Range: 22-26 pCO2 45 {mm_Hg} (Normal) Range: 35-45 pH 7.41 (Normal) Range: 7.35-7.45 sO2 92.2 % (Abnormal) Range: 95-99 26-Tep-278356:54 CHEST, PA AND LATERAL Radiology Report See Note (Normal) Comments: Exam Number: [id number] HISTORYShortness of breath. CHEST PA AND LATERAL FINDINGSCompared to previous examination of September 19, 2005, right midlungplatelike atelectatic changes are again noted and may re presentchronic atelectatic changes versus fibrotic changes, no significantchange. Mild to moderate cardiomegaly. No definite prominentperihilar vascular markings. No evidence of pleural effusions. Mi ldly tortuous thoracic aorta. Multilevel mild degenerative changesat thoracic spine. No acute fracture is noted. IMPRESSIONCardiomegaly. Right midlung platelike atelectatic change, nosignificant in terval change from previous chest x-ray examination ofSeptember 19, 2005, may represent chronic atelectatic changes versuspulmonary scar. Reported By: Buzz Edgar B-TYPE DIANA PEP 63.2 pg/mL (Normal) Comments: CALL RESULTS TO [phone] :[phone] 50-Ohz-014120:32 BMP Comments: CALL RESULTS TO [phone] FAX RESULTS TO DR GODINEZ BUN 12 mg/dL (Normal) Range: 7-18 BUN/CRE 20.0 {RATIO} (Normal) Range: 10-20 CA 9.8 mg/dL (Normal) Range: 8.5-10.1 CL 105 mmol/L (Normal) Range: 98-107 CO2 27.0 mmol/L (Normal) Range: 21.0-32.0 CREAT,SERUM 0.6 mg/dL (Normal) Range: 0.6-1.0 EST GFR 109 mL/min (Normal) EST GFR - AA 132 mL/min (Normal) GAP 11 (Normal) Range: 5-15 GLU 93 mg/dL (Normal) Range: 70-110 K 3.8 mmol/L (Normal) Range: 3.5-5.1 NA 143 mmol/L (Normal) Range: 136-145 52-Jcz-458265:42 HgA1C , Office (00691) HgA1C , Office 6.1 % (Normal) Range: 4.6 - 7.1 83-Byc-918697:42 Blood Glucose , Office (55568) Blood Glucose , Office 128 (Normal) 54-Pjz-43908:00 VIT D,25 25773 66.4 ng/mL (Normal) Range: 32.0-100.0 Comments: Recent studies consider the lower limit of 32.0 ng/mL to dorie threshold for optimal health.Wayne BW. J Nutr. 2004;135(2):317-22.Performed At: [address] [id number] 86-Lvm-824937:01 CBCD Comments: ORDERED CBCMD, LIPID, CMP, MICRO CREA DR. MCNAIR ORDERED PT BASO% 0.3 % (Normal) Range: 0-1 EO% 3.2 % (Normal) Range: 0-5 HCT 44.5 % (Normal) Range: 37-47 HGB 14.9 g/dL (Normal) Range: 12.0-16.0 LY% 27.2 % (Normal) Range: 19-41 MCH 30.1 pg (Normal) Range: 27.0-32.0 MCHC 33.4 g/dL (Normal) Range: 32-36 MCV 90.1 fL (Normal) Range: 81-99 MONO% 8.5 % (Normal) Range: 0-10 MPV 9.6 fL (Normal) Range: 6.5-12.0 NEUT% 60.8 % (Normal) Range: 47-70 PLT 200 K/mm3 (Normal) Range: 150-450 RBC 4.94 {M/mm3} (Normal) Range: 4.2-5.4 RDW 14.6 % (Normal) Range: 11.6-14.6 WBC 6.1 K/mm3 (Normal) Range: 4.4-11.0 62-Tzg-684120:01 CBCD,SMEAR DIFF Comments: ADDING A MANUAL DIFFDR.VIJI ORDERED CBCMD, LIPID, CMP, MICRO CREA DR. MCNAIR ORDERED PT HCT 44.5 % (Normal) Range: 37-47 HGB 14.9 g/dL (Normal) Range: 12.0-16.0 MCH 30.1 pg (Normal) Range: 27.0-32.0 MCHC 33.4 g/dL (Normal) Range: 32-36 MCV 90.1 fL (Normal) Range: 81-99 PLT 200 K/mm3 (Normal) Range: 150-450 RBC 4.94 {M/mm3} (Normal) Range: 4.2-5.4 RDW 14.6 % (Normal) Range: 11.6-14.6 WBC 6.1 K/mm3 (Normal) Range: 4.4-11.0 77-Iig-117449:01 COMP METABOLIC Comments: ORDERED CBCMD, LIPID, CMP, MICRO CREA DR. MCNAIR ORDERED PT A/G 0.8 {RATIO} (Abnormal) Range: 0.9-2.4 ALB 3.4 g/dL (Normal) Range: 3.4-5.0 ALK P 67 U/L (Normal) Range: 50-136 ALT 68 U/L (Abnormal) Range: 30-65 AST 32 U/L (Normal) Range: 15-37 BUN 15 mg/dL (Normal) Range: 7-18 BUN/CRE 18.8 {RATIO} (Normal) Range: 10-20 CA 9.9 mg/dL (Normal) Range: 8.5-10.1 CL 106 mmol/L (Normal) Range: 98-107 CO2 26.0 mmol/L (Normal) Range: 21.0-32.0 CREAT,SERUM 0.8 mg/dL (Normal) Range: 0.6-1.0 EST GFR 78 mL/min (Normal) EST GFR - AA 95 mL/min (Normal) GAP 10 (Normal) Range: 5-15 GLOB 4.3 g/dL (Abnormal) Range: 2.7-4.2 GLU 116 mg/dL (Abnormal) Range: 70-110 Comments: Fasting Glucose result from 110 to <126 mg/dL suggests IMPAIRED HOMEOSTASIS per A.D.A. criteria. K 3.7 mmol/L (Normal) Range: 3.5-5.1 NA 142 mmol/L (Normal) Range: 136-145 T BILI 0.50 mg/dL (Normal) Range: 0.00-1.00 T PROT 7.7 g/dL (Normal) Range: 6.4-8.2 :01 LIPID Comments: ORDERED CBCMD, LIPID, CMP, MICRO CREA DR. MCNAIR ORDERED PT CHOL 133 mg/dL (Normal) Comments: <200 mg/dL Desirable 200-240 mg/dL Borderline >240 mg/dL High Risk HDL 47 mg/dL (Normal) Comments: Reference Range HDL <40 mg/dL Low HDL Cholesterol HDL >or= 60 mg/dL High HDL Cholesterol LDL 61 mg/dL (Normal) Range: 0-130 TRIG 127 mg/dL (Normal) Comments: Serum Triglycerides Reference Interval Normal <150 mg/dL Borderline high 150 - 199 mg/dL High 200 - 499 mg/dL Very High > or = 500 mg/dL VLDL 25 mg/dL (Normal) Range: 5-40 :01 MICROALB:CRE UR Comments: ORDERED CBCMD, LIPID, CMP, MICRO CREA DR. MCNAIR ORDERED PT MALB:CREAT 12.1 {mg/g_CRE} (Normal) MICROALBUMIN,UR 13.5 mg/L (Normal) UR CREAT 111.5 mg/dL (Normal) 13-Xpe-547638:01 PRO TIME Comments: ORDERED CBCMD, LIPID, CMP, MICRO CREA DR. MCNAIR ORDERED PT INR 2.3 (Normal) PROTIME 25.4 s (Abnormal) Range: 9.1-11.7 :22 DEXA BONE DENSITY STUDY () Radiology Report See Note (Normal) Comments: Exam Number: [id number] BONE DENSITOMETRY HISTORYPostmenopausal. TECHNIQUE Bone densitometry of the lumbar spine and both hips is now beingperformed. The best criteria for evaluation of osteoporosis is theT-value, which represents the comparison of the patient's bone mass anna expected peak bone mass. For most patients, the mean T-value of Y8yncszwy L4 is used to evaluate the lumbar spine. To ev aluate the hip,the lower T-value of the femoral neck or total hip is used. FINDINGSIn this patient, the mean T-value of L1 through L4 is -1.2 which is inthe range of osteopenia. Z-score is -1.3. Bone mineral density ismeasured at 11.3% greater than in 1998 and 2.4% greater than in 2004.Digital lateral view for evaluation of vertebral deformity only demonstrates loss of height of T7. The T-value of the left femoral neck is -1.2 which is in the range ofosteopenia. The T-value of the total left hip is -0.5 which is normal. Z-value ofthe femoral neck is - 0.8. Z-value of the total hip is -0.5. Bone mineral density is measured at 7.5% less than in 1999 and 8.8% morethan in 2005.The T-value of the right femoral neck is -1.6 which is in the range ofosteopenia.The T-value of the total right hip is -0. 3 which is normal. Z-valueof the femoral neck is -1.2. Z-value of the total hip is -0.3. IMPRESSIONThere is osteopenia of the lumbar spine and both hips. Reported By: QUINCY LUTZ M.D. 19-May-20098:23 BILAT SCRN DIGITAL & CAD Radiology Report See Note (Normal) Comments: Exam Number: [id number] BILATERAL SCREENING MAMMOGRAM, DIGITAL SCREENING MAMMOGRAM WITH CAD There is a hlenk-qi-aupvqszq amount of fibroglandular tissue in bothbreasts. There is slight asymmetry. No d efinitive mass is seen. Clintno not see any secondary signs to suggest malignancy. There is abiopsy clip in the right breast. Considering differences intechnique, I do not think there has been significan t change sinceMay 04, 2006. IMPRESSION Negative exam. BIRADS 1. A letter regarding the results has been sent to the patient. This interpretation was rendered by a radiologist certified under th eMammography Quality Standards Act of 1992 (MQSA). The mammograms werealso examined with computer-aided detection software ([employer], [employer] Reported By: SUNDAY HARRIS M.D. 24-Ofd-339805:07 LQD PAP [id number] Comments: CYTOLOGY INFORMATION:- CLINICAL INFORMATION: POSTMENOPAUSAL- DATE LMP/MENOPAUSE: - COLLECTION VIAL: Thin Prep Vial- CARE WORKER SOURCE: CERVICAL/ENDOCERVICAL- COLLECTION TECHNIQUE: BRUSH/SPATULA ADEQ Comment (Normal) Comments: Satisfactory for evaluation. Endocervical and/or squamous metaplasticcells (endocervical component) are present. COMM . (Normal) DIAGN Comment (Normal) Comments: NEGATIVE FOR INTRAEPITHELIAL LESION AND MALIGNANCY. HPV RFLX Comment (Normal) Comments: The HPV DNA reflex criteria were not met with this specimenresult therefore, no HPV testing was performed. .Performed At: [address] [id number] PAPSMR Comment (Normal) Comments: The Pap smear is a screening test designed to aid in thedetection of premalignant and malignant conditions of theuterine cervix. It is not a diagnostic procedure andshould not be used as the sole means of detecting cervicalcancer. Both false-positive and false-negative reports dooccur. . PERFORM Comment (Normal) Comments: Murphy Pavon, Director Of Marketing Operations (ASCP) 64-Vpg-387355:19 HgA1C , Office (92942) HgA1C , Office 6.5 % (Normal) Range: 4.6 - 7.1 49-Fsy-228976:19 Blood Glucose , Office (85723) Blood Glucose , Office 127 (Normal) 49-Rgn-589351:32 PRO TIME Comments: DR MCNAIR ORDERED PTDR VIJI ORDERED BMP INR 3.0 (Normal) PROTIME 34.8 s (Abnormal) Range: 9.1-11.7 :28 CA 9.5 mg/dL (Normal) Comments: ORDERED PTASSIUM,MAG,PTHIN,CALCIUM,PHOS,VITDDR.TABBY ORDERED PT PLEASE FAX PT RESULTS Range: 8.5-10.1 67-Yxv-461787:28 K 3.6 mmol/L (Normal) Comments: ORDERED PTASSIUM,MAG,PTHIN,CALCIUM,PHOS,VITDDR.TABBY ORDERED PT PLEASE FAX PT RESULTS Range: 3.5-5.1 :28 MG 1.6 mg/dL (Normal) Comments: ORDERED PTASSIUM,MAG,PTHIN,CALCIUM,PHOS,VITDDR.TABBY ORDERED PT PLEASE FAX PT RESULTS Range: 1.5-2.2 :28 PHOS 2.8 mg/dL (Normal) Comments: ORDERED PTASSIUM,MAG,PTHIN,CALCIUM,PHOS,VITDDR.TABBY ORDERED PT PLEASE FAX PT RESULTS Range: 2.5-4.9 :28 PRO TIME Comments: ORDERED PTASSIUM,MAG,PTHIN,CALCIUM,PHOS,VITDDR.TABBY ORDERED PT PLEASE FAX PT RESULTS INR 3.5 (Normal) PROTIME 41.0 s (Abnormal) Range: 9.1-11.7 :28 PTH,[id number] Comments: ORDERED PTASSIUM,MAG,PTHIN,CALCIUM,PHOS,VITDDR.TABBY ORDERED PT PLEASE FAX PT RESULTS PTH,Intact 32 pg/mL (Normal) Range: 15-65 Comments: Performed At: [address] [id number] :[id number] VIT D,25 43403 20.9 ng/mL (Abnormal) Comments: ORDERED PTASSIUM,MAG,PTHIN,CALCIUM,PHOS,VITDDR.TABBY ORDERED PT PLEASE FAX PT RESULTS Range: 32.0-100.0 Comments: Recent studies consider the lower limit of 32.0 ng/mL to dorie threshold for optimal health.Wayne SANCHEZ. J Nutr. 2004;135(2):317-22. :39 HgA1C , Office (82773) HgA1C , Office 6.4 % (Normal) Range: 4.6 - 7.1 84-Ktu-830926:39 Blood Glucose , Office (24779) Blood Glucose , Office 141 (Normal) :44 CBCD,SMEAR DIFF CELLS COUNTED 100 (Normal) HCT 43.8 % (Normal) Range: 37-47 HGB 14.9 g/dL (Normal) Range: 12.0-16.0 LYMPH 31 % (Normal) Range: 19-41 MCH 30.0 pg (Normal) Range: 27.0-32.0 MCHC 33.9 g/dL (Normal) Range: 32-36 MCV 88.5 fL (Normal) Range: 81-99 MONOCYTE 9 % (Normal) Range: 0-10 PLT 223 K/mm3 (Normal) Range: 150-450 PLT EST SeeNote (Normal) Comments: Result: ADEQUATE RBC 4.96 {M/mm3} (Normal) Range: 4.2-5.4 RDW 13.8 % (Normal) Range: 11.6-14.6 RED CELL MORPH SeeNote {NORMAL} (Normal) Comments: Result: NORM C+C SEGS 60 % (Normal) Range: 47-70 WBC 5.3 K/mm3 (Normal) Range: 4.4-11.0 :44 COMP METABOLIC A/G 0.9 {RATIO} (Normal) Range: 0.9-2.4 ALB 3.5 g/dL (Normal) Range: 3.4-5.0 ALK P 68 U/L (Normal) Range: 50-136 ALT 82 U/L (Abnormal) Range: 30-65 AST 45 U/L (Abnormal) Range: 15-37 BUN 13 mg/dL (Normal) Range: 7-18 BUN/CRE 16.3 {RATIO} (Normal) Range: 10-20 CA 10.2 mg/dL (Abnormal) Range: 8.5-10.1 CL 103 mmol/L (Normal) Range: 98-107 CO2 31.7 mmol/L (Normal) Range: 21.0-32.0 CREAT,SERUM 0.8 mg/dL (Normal) Range: 0.6-1.0 EST GFR 79 mL/min (Normal) EST GFR - AA 96 mL/min (Normal) GAP 7 (Normal) Range: 5-15 GLOB 3.8 g/dL (Normal) Range: 2.7-4.2 GLU 102 mg/dL (Normal) Range: 70-110 K 3.1 mmol/L (Abnormal) Range: 3.5-5.1 NA 142 mmol/L (Normal) Range: 136-145 T BILI 0.49 mg/dL (Normal) Range: 0.00-1.00 T PROT 7.3 g/dL (Normal) Range: 6.4-8.2 :44 LIPID CHOL 169 mg/dL (Normal) Comments: <200 mg/dL Desirable 200-240 mg/dL Borderline >240 mg/dL High Risk HDL 52 mg/dL (Normal) Comments: Reference Range HDL <40 mg/dL Low HDL Cholesterol HDL >or= 60 mg/dL High HDL Cholesterol LDL 90 mg/dL (Normal) Range: 0-130 TRIG 134 mg/dL (Normal) Comments: Serum Triglycerides Reference Interval Normal <150 mg/dL Borderline high 150 - 199 mg/dL High 200 - 499 mg/dL Very High > or = 500 mg/dL VLDL 27 mg/dL (Normal) Range: 5-40 :44 MICROALB:CRE UR MALB:CREAT 10.9 {mg/g_CRE} (Normal) MICROALBUMIN,UR 28.5 mg/L (Normal) UR CREAT 259.4 mg/dL (Normal) :44 T3, FREE 38874 3.2 pg/mL (Normal) Range: 2.3-4.2 Comments: Performed At: [address] [id number] :44 T4 FREE,DIRECT 1.1 ng/dL (Normal) Range: 0.89-1.76 :44 TSH 0.12 {uIU/mL} (Abnormal) Range: 0.34-4.82 :30 NAYA U24 [id number] Comments: DATE STARTED 10/01/08, TIME STARTED 929DATE ENDED 10/02/08, TIME ENDED 929 CORTISOL,FR U24 26 {ug/24_hr} (Normal) Range: 0-50 Comments: Performed At: [address] [id number] CORTISOL,U FREE 11 ug/L (Normal) 73-Awe-737648:14 HgA1C , Office (81734) HgA1C , Office 6.3 % (Normal) Range: 4.6 - 7.1 :14 Blood Glucose , Office (34917) Blood Glucose , Office 153 (Normal) 7-Hsj-988365:38 LIVER (HP) Radiology Report See Note (Normal) Comments: Exam Number: [id number] LIVER ULTRASOUND HISTORYElevated liver function test. High-resolution real-time sector images were obtained. The pancreasis obscured by bowel gas. The gallbladder is within norm al limits insize. The wall is not thickened. No stones are seen. The commonduct is normal at 5 mm. The liver is very coarse in echo texturecompatible with fatty infiltration. Because of the degree ofcoarsening of the liver, the liver is incompletely penetrated andthere are, therefore, areas of the liver which are incompletelyvisualized. There is mild thinning of right renal cortex. IMPRESSION1 . There is no abnormality of gallbladder or biliary ducts.2. There is fatty infiltration of the liver. There are areas of theliver which are not well seen due to difficulty in penetrating thecoarse e cho texture of the liver.3. There is mild thinning of right renal cortex.4. The pancreas is obscured by bowel gas. Reported By: QUINCY LUTZ M.D. :34 HgA1C , Office (70566) HgA1C , Office 6.2 % (Normal) Range: 4.6 - 7.1 :33 Blood Glucose , Office (04542) Blood Glucose , Office 116 (Normal) :54 LIVER Comments: DR. MCNAIR ORDERED PT DR. BEYER ORDERED LIVER ALB 3.7 g/dL (Normal) Range: 3.4-5.0 ALK P 60 U/L (Normal) Range: 50-136 ALT 75 U/L (Abnormal) Range: 30-65 AST 32 U/L (Normal) Range: 15-37 D BILI 0.13 mg/dL (Normal) Range: 0.00-0.30 T BILI 0.43 mg/dL (Normal) Range: 0.00-1.00 T PROT 7.6 g/dL (Normal) Range: 6.4-8.2 :54 PRO TIME Comments: DR. MCNAIR ORDERED PT DR. BEYER ORDERED LIVER INR 2.4 (Normal) PROTIME 27.0 s (Abnormal) Range: 9.1-11.7 Comments: Please note revised PT reference range effective 08. :36 HgA1C , Office (87951) HgA1C , Office 6.1 % (Normal) Range: 4.6 - 7.1 :36 Blood Glucose , Office (43669) Blood Glucose , Office 135 (Normal) :49 HgA1C , Office (07894) HgA1C , Office 6.2 % (Normal) Range: 4.6 - 7.1 :49 Blood Glucose , Office (27864) Blood Glucose , Office 137 (Normal) :11 T3, FREE 35505 3.2 pg/mL (Normal) Range: 2.3-4.2 Comments: Performed At: [address] [id number] :11 T4 FREE,DIRECT 1.2 ng/dL (Normal) Range: 0.89-1.76 :24 THYROID IMAGE W/UPTAKE MULT Radiology Report See Note (Normal) Comments: Exam Number: [id number] THYROID SCAN AND UPTAKE: INDICATIONAbnormal thyroid study. COMPARISONNone. [id number] mCi of iodine-123 was given orally. Pinhole collimator images ofthe thyroid gl and were obt ained in anterior, GARDNER, and WELSH positions.4-hour and 24-hour uptake values were obtained. FINDINGSThere is fairly symmetric uptake of radiopharmaceutical within boththyroid lobes, which appear to be sym metric in size and not enlarged.No focal hot or cold nodules are identified. The 4-hour and 24-houruptake values are within normal limits, calculated at 8.4% and 17.1%respectively. IMPRESSIONNormal r adionuclide thyroid scan and uptake. Reported By: CARLOS WHEELER M.D. :13 BMP BUN 11 mg/dL (Normal) Range: 7-18 BUN/CRE 15.7 {RATIO} (Normal) Range: 10-20 CA 9.8 mg/dL (Normal) Range: 8.5-10.1 CL 104 mmol/L (Normal) Range: 98-107 CO2 26.0 mmol/L (Normal) Range: 21.0-32.0 Comments: Please Note Reference Interval Change CREAT,SERUM 0.7 mg/dL (Normal) Range: 0.6-1.0 GAP 12 (Normal) Range: 5-15 GLU 93 mg/dL (Normal) Range: 70-110 K 4.1 mmol/L (Normal) Range: 3.5-5.1 NA 142 mmol/L (Normal) Range: 136-145 :13 MI[place]OS[place] AB 6676 < 10 {IU/mL} (Normal) Range: 0-34 Comments: Performed At: [address] [id number] :13 T3, FREE 21252 3.2 pg/mL (Normal) Range: 2.3-4.2 Comments: Performed At: [address] [id number] :13 T4 FREE,DIRECT 1.3 ng/dL (Normal) Range: 0.89-1.76 :13 TSH 0.23 {uIU/mL} (Abnormal) Range: 0.34-4.82 :36 HgA1C , Office (73895) HgA1C , Office 5.7 % (Normal) Range: 4.6 - 7.1 :36 Blood Glucose , Office (67726) Blood Glucose , Office 117 (Normal) :04 CBCD,SMEAR DIFF BAND 1 % (Normal) Range: 0-5 CELLS COUNTED 100 (Normal) HCT 42.4 % (Normal) Range: 37-47 HGB 14.2 g/dL (Normal) Range: 12.0-16.0 LYMPH 16 % (Abnormal) Range: 19-41 MCH 29.9 pg (Normal) Range: 27.0-32.0 MCHC 33.5 g/dL (Normal) Range: 32-36 MCV 89.3 fL (Normal) Range: 81-99 MONOCYTE 8 % (Normal) Range: 0-10 PLT 253 K/mm3 (Normal) Range: 150-450 PLT EST SeeNote (Normal) Comments: Result: ADEQUATE RBC 4.75 {M/mm3} (Normal) Range: 4.2-5.4 RDW 13.9 % (Normal) Range: 11.6-14.6 RED CELL MORPH SeeNote {NORMAL} (Normal) Comments: Result: NORM C&C SEGS 75 % (Abnormal) Range: 47-70 WBC 7.0 K/mm3 (Normal) Range: 4.4-11.0 :04 COMP METABOLIC A/G 0.9 {RATIO} (Normal) Range: 0.9-2.4 ALB 3.4 g/dL (Normal) Range: 3.4-5.0 ALK P 50 U/L (Normal) Range: 50-136 ALT 61 [iU]/L (Normal) Range: 30-65 AST 35 U/L (Normal) Range: 15-37 BUN 18 mg/dL (Normal) Range: 7-18 BUN/CRE 25.7 {RATIO} (Abnormal) Range: 10-20 CA 9.5 mg/dL (Normal) Range: 8.5-10.1 CL 103 mmol/L (Normal) Range: 98-107 CO2 30.2 mmol/L (Normal) Range: 21.0-32.0 Comments: Please Note Reference Interval Change CREAT,SERUM 0.7 mg/dL (Normal) Range: 0.6-1.0 GAP 5 (Normal) Range: 5-15 GLOB 4.0 g/dL (Normal) Range: 2.7-4.2 Comments: Please Note Reference Interval Change GLU 102 mg/dL (Normal) Range: 70-110 K 3.8 mmol/L (Normal) Range: 3.5-5.1 NA 138 mmol/L (Normal) Range: 136-145 T BILI 0.29 mg/dL (Normal) Range: 0.00-1.00 T PROT 7.4 g/dL (Normal) Range: 6.4-8.2 :04 LIPID CHOL 151 mg/dL (Normal) Comments: <200 mg/dL Desirable 200-240 mg/dL Borderline >240 mg/dL High Risk HDL 51 mg/dL (Normal) Comments: Reference Range HDL <40 mg/dL Low HDL Cholesterol HDL >or= 60 mg/dL High HDL Cholesterol LDL 83 mg/dL (Normal) Range: 0-130 TRIG 85 mg/dL (Normal) Comments: Serum Triglycerides Reference Interval Normal <150 mg/dL Borderline high 150 - 199 mg/dL High 200 - 499 mg/dL Very High > or = 500 mg/dL VLDL 17 mg/dL (Normal) Range: 5-40 :04 MICROALB:CRE UR MALB:CREAT 10.1 {mg/g_CRE} (Normal) MICROALBUMIN,UR 15.6 mg/L (Normal) UR CREAT 154.1 mg/dL (Normal) :04 TSH 0.33 {uIU/mL} (Abnormal) Range: 0.34-4.82 :34 PRO TIME INR 3.6 (Abnormal) Comments: RESULTS CALLED TO MYRANDA PARSON 05/21/071446MOJOSETTE CHAVEZREPORT READ BACK BY SAME AMENDED REPORT 05/21/071446 INR previously reported as: 3.6 *H PROTIME 39.4 s (Abnormal) Range: 10.6-13.2 :26 BMP BUN 12 mg/dL (Normal) Range: 7-18 BUN/CRE 17.1 {RATIO} (Normal) Range: 10-20 CA 9.1 mg/dL (Normal) Range: 8.5-10.1 CL 102 mmol/L (Normal) Range: 98-107 CO2 27.9 mmol/L (Normal) Range: 22.0-29.0 CREAT,SERUM 0.7 mg/dL (Normal) Range: 0.6-1.0 GAP 9 (Normal) Range: 5-15 GLU 100 mg/dL (Normal) Range: 70-110 K 3.9 mmol/L (Normal) Range: 3.5-5.1 NA 139 mmol/L (Normal) Range: 136-145 :26 PRO TIME INR 3.4 (Normal) PROTIME 36.5 s (Abnormal) Range: 10.6-13.2 :31 Blood Glucose , Office (75116) Blood Glucose , Office 138 (Normal) :24 PRO TIME INR 3.3 (Normal) PROTIME 36.3 s (Abnormal) Range: 10.6-13.2 Comments: Please Note Reference Interval Change :23 LIPID CHOL 148 mg/dL (Normal) Comments: <200 mg/dL Desirable 200-240 mg/dL Borderline >240 mg/dL High Risk HDL 45 mg/dL (Normal) Comments: Reference Range HDL <40 mg/dL Low HDL Cholesterol HDL >or= 60 mg/dL High HDL Cholesterol LDL 83 mg/dL (Normal) Range: 0-130 TRIG 102 mg/dL (Normal) Comments: Serum Triglycerides Reference Interval Normal <150 mg/dL Borderline high 150 - 199 mg/dL High 200 - 499 mg/dL Very High > or = 500 mg/dL VLDL 20 mg/dL (Normal) Range: 5-40 :23 LIVER ALB 3.8 g/dL (Normal) Range: 3.4-5.0 ALK P 58 U/L (Normal) Range: 50-136 ALT 46 [iU]/L (Normal) Range: 30-65 AST 36 U/L (Normal) Range: 15-37 D BILI 0.05 mg/dL (Normal) Range: 0.00-0.30 T BILI 0.37 mg/dL (Normal) Range: 0.00-1.00 T PROT 7.5 g/dL (Normal) Range: 6.4-8.2 :43 PRO TIME INR 3.5 (Normal) PROTIME 40.2 s (Abnormal) Range: 10.6-13.2 Comments: Please Note Reference Interval Change :25 PRO TIME INR 3.3 (Normal) PROTIME 36.6 s (Abnormal) Range: 11.7-13.3 :40 HgA1C , Office (96247) HgA1C , Office 5.9 % (Normal) Range: 4.6 - 7.1 :40 Blood Glucose , Office (38270) Blood Glucose , Office 90 (Normal) :49 LIPID HDL 48 mg/dL (Normal) Comments: Reference Range HDL <40 mg/dL Low HDL Cholesterol HDL >or= 60 mg/dL High HDL Cholesterol LDL 80 mg/dL (Normal) Range: 0-130 VLDL 16 mg/dL (Normal) Range: 5-40 CHOL 144 mg/dL (Normal) Comments: <200 mg/dL Desirable 200-240 mg/dL Borderline >240 mg/dL High Risk TRIG 78 mg/dL (Normal) Comments: Serum Triglycerides Reference Interval Normal <150 mg/dL Borderline high 150 - 199 mg/dL High 200 - 499 mg/dL Very High > or = 500 mg/dL :49 LIVER ALB 3.5 g/dL (Normal) Range: 3.4-5.0 ALK P 57 U/L (Normal) Range: 50-136 ALT 51 [iU]/L (Normal) Range: 30-65 AST 21 U/L (Normal) Range: 15-37 D BILI 0.09 mg/dL (Normal) Range: 0.00-0.30 T BILI 0.38 mg/dL (Normal) Range: 0.00-1.00 T PROT 7.2 g/dL (Normal) Range: 6.4-8.2 :50 PRO TIME INR 2.4 (Normal) PROTIME 27.0 s (Abnormal) Range: 11.7-13.3 :30 PRO TIME INR 2.4 (Normal) PROTIME 27.8 s (Abnormal) Range: 11.7-13.3 :31 CA 9.2 mg/dL (Normal) Range: 8.5-10.1 :31 LIVER ALB 3.6 g/dL (Normal) Range: 3.4-5.0 ALK P 59 U/L (Normal) Range: 50-136 ALT 68 [iU]/L (Abnormal) Range: 30-65 AST 32 U/L (Normal) Range: 15-37 D BILI 0.08 mg/dL (Normal) Range: 0.00-0.30 T BILI 0.35 mg/dL (Normal) Range: 0.00-1.00 T PROT 7.3 g/dL (Normal) Range: 6.4-8.2 :31 PRO TIME INR 3.5 (Normal) PROTIME 39.0 s (Abnormal) Range: 11.7-13.3 :31 SPE [id number] A/G RATIO 1.2 (Normal) Range: 0.7-2.0 ALBUMIN 3.8 g/dL (Normal) Range: 3.2-5.6 ALPHA-1 GLOBUL 0.2 g/dL (Normal) Range: 0.1-0.4 ALPHA-2 GLOBUL 0.8 g/dL (Normal) Range: 0.4-1.2 BETA GLOBULIN 1.1 g/dL (Normal) Range: 0.6-1.3 GAMMA GLOBULIN 1.2 g/dL (Normal) Range: 0.5-1.6 GLOBULIN, TOTAL 3.3 g/dL (Normal) Range: 2.0-4.5 INTERPRETATION Comment (Normal) Comments: The SPE pattern appears essentially unremarkable. Evidenceof monoclonal protein is not apparent.Performed At: [address] [id number] M-SPIKE SeeNote (Normal) Comments: Result: Not Observed NOTE: Comment (Normal) Comments: Protein electrophoresis scan will follow via mail orcourier. PROTEIN,TOTAL 7.1 g/dL (Normal) Range: 6.0-8.5 :24 PRO TIME INR 3.0 (Normal) PROTIME 33.8 s (Abnormal) Range: 11.7-13.3 :12 HgA1C , Office (56470) HgA1C , Office 5.9 % (Normal) Range: 4.6 - 7.1 :12 Blood Glucose , Office (05563) Blood Glucose , Office 108 (Normal) :35 PRO TIME INR 1.8 (Normal) PROTIME 21.4 s (Abnormal) Range: 11.7-13.3 :48 COMP METABOLIC A/G 0.7 {RATIO} (Abnormal) Range: 0.9-2.4 ALB 3.3 g/dL (Abnormal) Range: 3.4-5.0 ALK P 76 U/L (Normal) Range: 50-136 ALT 61 [iU]/L (Normal) Range: 30-65 AST 38 U/L (Abnormal) Range: 15-37 BUN 15 mg/dL (Normal) Range: 7-18 BUN/CRE 21.4 {RATIO} (Abnormal) Range: 10-20 CA 10.2 mg/dL (Abnormal) Range: 8.5-10.1 CL 101 mmol/L (Normal) Range: 98-107 CO2 30.0 mmol/L (Abnormal) Range: 22.0-29.0 CREAT,SERUM 0.7 mg/dL (Normal) Range: 0.6-1.0 GAP 6 (Normal) Range: 5-15 GLOB 4.5 g/dL (Abnormal) Range: 2.3-3.5 GLU 110 mg/dL (Normal) Range: 70-110 Comments: Fasting Glucose result from 110 to <126 mg/dL suggests IMPAIRED HOMEOSTASIS per A.D.A. criteria. K 3.9 mmol/L (Normal) Range: 3.5-5.1 NA 137 mmol/L (Normal) Range: 136-145 T BILI 0.27 mg/dL (Normal) Range: 0.00-1.00 T PROT 7.8 g/dL (Normal) Range: 6.4-8.2 :48 MICROALB:CRE UR MALB:CREAT 10.9 {mg/g_CRE} (Normal) MICROALBUMIN,UR 5.1 mg/L (Normal) UR CREAT 46.6 mg/dL (Normal) :48 PFLIP CHOL 151 mg/dL (Normal) Comments: <200 mg/dL Desirable 200-240 mg/dL Borderline >240 mg/dL High Risk HDL 46 mg/dL (Normal) Comments: Reference Range HDL <40 mg/dL Low HDL Cholesterol HDL >or= 60 mg/dL High HDL Cholesterol LDL 90 mg/dL (Normal) Range: 0-130 TRIG 74 mg/dL (Normal) Comments: Serum Triglycerides Reference Interval Normal <150 mg/dL Borderline high 150 - 199 mg/dL High 200 - 499 mg/dL Very High > or = 500 mg/dL VLDL 15 mg/dL (Normal) Range: 5-40 :48 ROUTINE UA BILIRUBIN URINE SeeNote (Normal) Comments: Result: NEGATIVE CLARITY CLEAR (Normal) COLOR YELLOW (Normal) GLUCOSE, UR SeeNote (Normal) Comments: Result: NEGATIVE KETONE UR SeeNote mg/dL (Normal) Comments: Result: NEGATIVE LEUK ESTERASE SeeNote (Normal) Comments: Result: NEGATIVE NITRITE UR SeeNote (Normal) Comments: Result: NEGATIVE OCCULT BLOOD-UR SeeNote (Abnormal) Comments: Result: TRACE-LYSED pH UR 7.5 (Normal) Range: 5.0-8.0 PROT DIPSTX SeeNote (Normal) Comments: Result: NEGATIVE SP.GR. DIPSTX 1.010 (Normal) Range: 1.002-1.030 UROBILI 0.2 EU/dl (Normal) Range: 0.2 - 1.0 Plan of Care Name Dates Details Instructions Vitamin D deficiency, unspecified : Eprescribed prescriptions (G8553) Indication: Vitamin D deficiency, unspecified Encounter for general adult medical examination with abnormal findings : *Well Female Maintenance ([facility]) Indication: Encounter for general adult medical examination with abnormal findings Encounter for general adult medical examination with abnormal findings : Self breast exam Indication: Encounter for general adult medical examination with abnormal findings Encounter for general adult medical examination with abnormal findings : fall reduction handout Indication: Encounter for general adult medical examination with abnormal findings Encounter for general adult medical examination with abnormal findings : elderly packet given Indication: Encounter for general adult medical examination with abnormal findings Encounter for general adult medical examination with abnormal findings : advance planning information Indication: Encounter for general adult medical examination with abnormal findings GERD (gastroesophageal reflux disease) : Flu (Influenza) *: flu Indication: GERD (gastroesophageal reflux disease) GERD (gastroesophageal reflux disease) : Eprescribed prescriptions (G8553) Indication: GERD (gastroesophageal reflux disease) Controlled diabetes mellitus type II without complication : Eprescribed prescriptions (G8553) Indication: Controlled diabetes mellitus type II without complication Controlled diabetes mellitus type II without complication : Eprescribed prescriptions (G8553) Indication: Controlled diabetes mellitus type II without complication Face pain : Follow up on Monday with [facility] Indication: Face pain Controlled diabetes mellitus type II without complication : Eprescribed prescriptions (G8553) Indication: Controlled diabetes mellitus type II without complication Controlled diabetes mellitus type II without complication : Diabetes and Exercise: Preventing Low Blood Sugar: blood sugar Indication: Controlled diabetes mellitus type II without complication NEED FOR PROPHYLACTIC VACCINATION AND INOCULATION AGAINST INFLUENZA (V04.81) (Renamed from Need for prophylactic vaccination and inoculation against influenza) : Flu (Influenza) *: flu shot Indication: NEED FOR PROPHYLACTIC VACCINATION AND INOCULATION AGAINST INFLUENZA (V04.81) (Renamed from Need for prophylactic vaccination and inoculation against influenza) Depression : Depression: Brief Version *: depressed Indication: Depression Sinusitis, chronic : Allergic Rhinitis *: allergic rhinitis Indication: Sinusitis, chronic Hypertension : High Blood Pressure (Essential Hypertension) *: cardiovascular health Indication: Hypertension Hypertension : *Leo Inhibitor Side Effects Indication: Hypertension Hypercholesterolemia : Follow up in 3 months Indication: Hypercholesterolemia Hypercholesterolemia : Follow up after lab work completed Indication: Hypercholesterolemia Controlled diabetes mellitus type II without complication : Diabetes Overview (Living with Diabetes): type 2 diabetes Indication: Controlled diabetes mellitus type II without complication Pain in limb : Reviewed Lab Indication: Pain in limb Pain in limb : Follow up in 2 weeks Indication: Pain in limb Hypercholesterolemia : *Cholesterol - Medication Side Effects Indication: Hypercholesterolemia Eustachian tube dysfunction : FOLLOW UP IN 3 DAYS [facility] Indication: Eustachian tube dysfunction Bronchitis : *URI Treatment Indication: Bronchitis Bronchitis : *URI Symptoms Indication: Bronchitis Bronchitis : *Antibiotic Usage Education - Female Indication: Bronchitis Vertigo : *Vertigo Education Indication: Vertigo Low back pain : Reviewed Diagnostic Tests Indication: Low back pain Encounter for general adult medical examination with abnormal findings : Self Breast Exam Education Indication: Encounter for general adult medical examination with abnormal findings Encounter for general adult medical examination with abnormal findings : Colon Cancer Screening Indication: Encounter for general adult medical examination with abnormal findings Encounter for general adult medical examination with abnormal findings : Pap/Pelvic/Bimanual/Rectal/Breast Exam was done. 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 : URI Symptoms Indication: Acute exacerbation of COPD with asthma Glucose intolerance (no malabsorption) : FOLLOW UP IN 3 MONTHS Indication: Glucose intolerance (no malabsorption) Cellulitis : IV Indication: Cellulitis Planned Observations CBC with auto diff ([id number])Indication: Controlled diabetes mellitus type II without complication On: :56 Request METABOLIC PANEL, COMPREHENSIVE (59131)Indication: Controlled diabetes mellitus type II without complication On: 41-Zls-551191:56 Request TSH (05334)Indication: Hypothyroidism On: :56 Request CALCIFIDIOL (05821) VIT D 25Indication: Vitamin D deficiency, unspecified On: 76-Ypj-503032:55 Request ZINC, BLOOD (13325)Indication: Low zinc level On: 77-Ori-798242:55 Request TSH (04525)Indication: Hypothyroidism On: 7-Glp-967729:36 Request ZINC, BLOOD (09879)Indication: Low zinc level On: 7-Xml-915212:03 Request HEPATITIS C ANTIBODY (47489)Indication: Encounter for hepatitis C virus screening test for high risk patient On: 4-Vog-704392:02 Request ZINC, BLOOD (13097)Indication: Low zinc level On: 4-Oek-167856:28 Request METABOLIC PANEL, COMPREHENSIVE (88933)Indication: Controlled diabetes mellitus type II without complication On: 17-Xjn-290964:49 Request Phosphorus (83638)Indication: Postsurgical malabsorption On: :52 Request FERRITIN (81791)Indication: Postsurgical malabsorption On: :52 Request ZINC, BLOOD (62299)Indication: Postsurgical malabsorption On: :52 Request Vitamin B-12 (cyanocobalamin) (59903)Indication: Postsurgical malabsorption On: :52 Request VITAMIN A (01627)Indication: Postsurgical malabsorption On: :52 Request MAGNESIUM (48638)Indication: Postsurgical malabsorption On: :52 Request Folic Acid Serum (77302)Indication: Postsurgical malabsorption On: :52 Request CHROMIUM (89882)Indication: Postsurgical malabsorption On: :52 Request Phosphorus (49018)Indication: Postsurgical malabsorption On: :54 Request FERRITIN (75168)Indication: Postsurgical malabsorption On: :54 Request ZINC, BLOOD (18472)Indication: Postsurgical malabsorption On: :54 Request Vitamin B-12 (cyanocobalamin) (71052)Indication: Postsurgical malabsorption On: :54 Request VITAMIN A (96754)Indication: Postsurgical malabsorption On: :54 Request MAGNESIUM (72806)Indication: Postsurgical malabsorption On: :54 Request Folic Acid Serum (51020)Indication: Postsurgical malabsorption On: :54 Request CHROMIUM (82825)Indication: Postsurgical malabsorption On: :54 Request PT (Prothrobim Time) (56510)Indication: Long-term (current) use of anticoagulants (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) On: :52 Request METABOLIC PANEL, COMPREHENSIVE (76841)Indication: Afib On: :27 Request LIPID PANEL (75843)Indication: Afib On: 22-Wmo-946941:27 Request CALCIFIDIOL (61403) VIT D 25Indication: Vitamin D deficiency, unspecified On: 09-Xpo-537331:24 Request CBC with manual diff (05012)Indication: Hypertension On: 55-Cho-092195:23 Request Hemoglobin Glyclated (HGB A1C) (44626)Indication: Controlled diabetes mellitus type II without complication On: 63-Oyz-301646:23 Request Hemoglobin Glyclated (HGB A1C) (57768)Indication: Controlled diabetes mellitus type II without complication On: 28-Apr-2015 Request LIPID PANEL (12995)Indication: Controlled diabetes mellitus type II without complication On: 97-Goi-177660:14 Request Comments: copy to Dr. tabby MCCRACEKNALBUMIN: CREATININE RATIO (43185) AND (04799)Indication: Controlled diabetes mellitus type II without complication On: 72-Zpn-945352:14 Request METABOLIC PANEL, COMPREHENSIVE (45674)Indication: Controlled diabetes mellitus type II without complication On: 57-Urx-190632:14 Request CBC with auto diff (02050)Indication: Controlled diabetes mellitus type II without complication On: 20-Gse-943021:14 Request Metabolic Panel, Comprehensive (79055)Indication: Hypercholesterolemia On: 10-Tcs-900243: Request Comments: recheck in 3 months Lipid Panel (82279)Indication: Hypercholesterolemia On: 26-Ock-129708:01 Request Comments: recheck in 3 months Hemoglobin Glyclated (HGB A1C) (12904)Indication: Controlled diabetes mellitus type II without complication On: 62-Xnw-372537:08 Request CALCIFIDIOL (14954) VIT D 25Indication: Vitamin D deficiency, unspecified On: 64-Ram-363602:02 Request TSH (28158)Indication: Abnormal TSH On: 46-Qzd-994955:02 Request URINALYSIS, W/ MICRO (90367)Indication: Controlled diabetes mellitus type II without complication On: :43 Request METABOLIC PANEL, COMPREHENSIVE (19141)Indication: Controlled diabetes mellitus type II without complication On: :43 Request LIPID PANEL (63805)Indication: Controlled diabetes mellitus type II without complication On: :43 Request CBC WITH MANUAL DIFF (10696)Indication: Controlled diabetes mellitus type II without complication On: 33-Dvx-486361:43 Request CALCIFIDIOL (24146) VIT D 25Indication: Vitamin D deficiency, unspecified On: :26 Request Comments: in three months (approximately) CALCIFEDIOL (62428)Indication: Postsurgical malabsorption On: :06 Request Phosphorus (68994)Indication: Postsurgical malabsorption On: : Request ZINC, BLOOD (44267)Indication: Postsurgical malabsorption On: : Request FERRITIN (98626)Indication: Postsurgical malabsorption On: : Request Vitamin B-12 (cyanocobalamin) (82136)Indication: Postsurgical malabsorption On: : Request VITAMIN A (61123)Indication: Postsurgical malabsorption On: : Request MAGNESIUM (78530)Indication: Postsurgical malabsorption On: :05 Request MICROALBUMIN: CREATININE RATIO (00456) AND (72855)Indication: Controlled diabetes mellitus type II without complication On: :05 Request METABOLIC PANEL, COMPREHENSIVE (66686)Indication: Controlled diabetes mellitus type II without complication On: :05 Request LIPID PANEL (40904)Indication: Controlled diabetes mellitus type II without complication On: : Request CBC WITH MANUAL DIFF ([id number])Indication: Controlled diabetes mellitus type II without complication On: :05 Request Metabolic Panel, Basic (50118)Indication: Hypertension On: 30-Pgw-263612:39 Request PTH (PARATHORMONE) (65835)Indication: Hypercalcemia On: 1-Hnp-272712:33 Request Comments: re check prior to next follow up Calcium Serum (67292)Indication: Hypercalcemia On: 7-Vaw-667531:33 Request Comments: re check prior to next follow up CALCIFIDIOL (76267) VIT D 25Indication: Vitamin D deficiency, unspecified On: 4-Zug-077119:32 Request Comments: re check prior to next follow up HEPATIC FUNCTION PANEL (16407)Indication: Hypercholesterolemia On: 5-Axz-989272:46 Request LIPID PANEL (02539)Indication: Hypercholesterolemia On: 6-Xlr-456052:46 Request PARATHORMONE (09277)Indication: Postsurgical malabsorption On: 4-Axf-293729:04 Request MAGNESIUM (93267)Indication: Postsurgical malabsorption On: :04 Request CHROMIUM (43518)Indication: Postsurgical malabsorption On: :04 Request ASSAY, HOMOCYSTINE (66365)Indication: Postsurgical malabsorption On: :04 Request MICROALBUMIN: CREATININE RATIO (42481) AND (62062)Indication: Controlled diabetes mellitus type II without complication On: :04 Request METABOLIC PANEL, COMPREHENSIVE (01881)Indication: Controlled diabetes mellitus type II without complication On: : Request LIPID PANEL (30596)Indication: Controlled diabetes mellitus type II without complication On: : Request CBC WITH MANUAL DIFF (61072)Indication: Controlled diabetes mellitus type II without complication On: :04 Request TSH (50076)Indication: Abnormal TSH On: 7-Nhb-629228:03 Request CPK TOTAL & ISOENZYMES (46807)Indication: Pain in limb On: 07-Fpf-903902:12 Request Vitamin B-12 (cyanocobalamin) (32146)Indication: Postsurgical malabsorption On: 9-Vvr-541624:16 Request VITAMIN A (21045)Indication: Postsurgical malabsorption On: 7-Hgt-398298:16 Request Folic Acid Serum (77303)Indication: Postsurgical malabsorption On: 2-Lyi-557499:16 Request MAGNESIUM (64303)Indication: Postsurgical malabsorption On: 5-Lnw-537201:16 Request CALCIFEDIOL (86776)Indication: Postsurgical malabsorption On: 4-Jsl-692238:16 Request Magnesium (92863)Indication: Postsurgical malabsorption On: 3-Zmc-235190:16 Request Phosphorus (94403)Indication: Postsurgical malabsorption On: 7-Cxs-439065:15 Request FERRITIN (16571)Indication: Postsurgical malabsorption On: 4-Opa-943558:15 Request IRON (78743)Indication: Postsurgical malabsorption On: 2-Ndv-829520:15 Request ZINC, BLOOD (12334)Indication: Postsurgical malabsorption On: 4-Eys-040568:15 Request METABOLIC PANEL, COMPREHENSIVE (17461)Indication: Controlled diabetes mellitus type II without complication On: 3-Stt-108349:15 Request TSH (59156)Indication: Abnormal TSH On: 9-Qyi-069954:15 Request MICROALBUMIN: CREATININE RATIO (57051) AND (09262)Indication: Controlled diabetes mellitus type II without complication On: 2-Tcv-438496:15 Request Lipid Panel (96858)Indication: Controlled diabetes mellitus type II without complication On: :15 Request CBC with manual diff ([id number])Indication: Controlled diabetes mellitus type II without complication On: 1-Vfy-075188:15 Request CALCIFEDIOL (18595)Indication: Osteopenia On: 6-Ocn-075374:00 Request Hemoglobin Glyclated (HGB A1C) (65304)Indication: Controlled diabetes mellitus type II without complication On: :31 Request Lipid Panel (12579)Indication: Controlled diabetes mellitus type II without complication On: :31 Request Metabolic Panel, Comprehensive (11971)Indication: Controlled diabetes mellitus type II without complication On: 1-Vac-776328:28 Request CALCIFEDIOL (53574)Indication: Postsurgical malabsorption On: :26 Request PARATHORMONE (43889)Indication: Postsurgical malabsorption On: :26 Request Magnesium (42413)Indication: Postsurgical malabsorption On: :26 Request Phosphorus (93448)Indication: Postsurgical malabsorption On: :26 Request IRON (47445)Indication: Postsurgical malabsorption On: :26 Request FERRITIN (42645)Indication: Postsurgical malabsorption On: :26 Request ZINC, BLOOD (39086)Indication: Postsurgical malabsorption On: :26 Request Vitamin B-12 (cyanocobalamin) (84415)Indication: Postsurgical malabsorption On: :26 Request VITAMIN A (40364)Indication: Postsurgical malabsorption On: :26 Request MAGNESIUM (91997)Indication: Postsurgical malabsorption On: Request Folic Acid Serum (95127)Indication: Postsurgical malabsorption On: Request CHROMIUM (26917)Indication: Postsurgical malabsorption On: Request ASSAY, HOMOCYSTINE (63385)Indication: Postsurgical malabsorption On: Request TSH (86026)Indication: Abnormal TSH On: Request Hemoglobin Glyclated (HGB A1C) (91335)Indication: Controlled diabetes mellitus type II without complication On: Request CBC with manual diff (25644)Indication: Controlled diabetes mellitus type II without complication On: Request Metabolic Panel, Comprehensive ([id number])Indication: Controlled diabetes mellitus type II without complication On: Request Lipid Panel (94154)Indication: Controlled diabetes mellitus type II without complication On: Request METHLYMALONIC ACID, SERUM ([id number])Indication: Postsurgical malabsorption On: Request CBC WITH MANUAL DIFF ([id number])Indication: Controlled diabetes mellitus type II without complication On: 9-Kwi-071415:10 Request LIPID PANEL ([id number])Indication: Controlled diabetes mellitus type II without complication On: :10 Request METABOLIC PANEL, COMPREHENSIVE (61590)Indication: Controlled diabetes mellitus type II without complication On: 1-Zvl-827525:10 Request MICROALBUMIN: CREATININE RATIO ([id number]) AND ([id number])Indication: Controlled diabetes mellitus type II without complication On: 3-Vkn-231395:10 Request BNTP ([id number])Indication: Other primary cardiomyopathies On: :22 Request Comments: call labs when back to [phone] Metabolic Panel, Basic ([id number])Indication: Other primary cardiomyopathies On: 72-Kuw-870320:21 Request Vitamin D Hydroxy (34285)Indication: Osteopenia On: 19-Ysw-541495:09 Request Thin prep Pap (78291)Indication: Encounter for general adult medical examination with abnormal findings On: 12-Cec-196228:00 Request MICROALBUMIN: CREATININE RATIO ([id number]) AND ([id number])Indication: Uncontrolled type II diabetes mellitus On: 17-Znc-127943:36 Request METABOLIC PANEL, COMPREHENSIVE (75961)Indication: Uncontrolled type II diabetes mellitus On: 54-Vkp-311667:36 Request LIPID PANEL ([id number])Indication: Uncontrolled type II diabetes mellitus On: :36 Request CBC WITH MANUAL DIFF ([id number])Indication: Uncontrolled type II diabetes mellitus On: 44-Koo-949965:36 Request Comments: in three months (approximately) Metabolic Panel, Comprehensive ([id number])Indication: Uncontrolled type II diabetes mellitus On: 39-Ktq-945520:04 Request Lipid Panel (09141)Indication: Uncontrolled type II diabetes mellitus On: 77-Eru-068888:04 Request Comments: in three months (approximately) CALCIFIDIOL (34096) VIT D 25Indication: Hypercalcemia On: 51-Idw-997729:57 Request Phosphorus (31395)Indication: Hypercalcemia On: 27-Wdb-003040:56 Request Calcium Serum (47607)Indication: Hypercalcemia On: 95-Wgj-945489:56 Request PARATHORMONE (30963)Indication: Hypercalcemia On: 87-Kvs-621004:56 Request Magnesium (40084)Indication: Hypokalemia On: 19-Hjg-847091:55 Request Potassium Serum (43204)Indication: Hypokalemia On: 88-Rsj-305064:55 Request CORTISOL TOTAL (90081)Indication: Morbid obesity On: 68-Man-841763:28 Request Comments: WANT 24 HOUR URINE FOR CORTISOL TSH (37331)Indication: Abnormal TSH On: 76-Iel-982296:22 Request T4, FREE (THYROXINE) ([id number])Indication: Abnormal TSH On: 99-Kkm-140020:22 Request T3, FREE (TRIDOTHYRONINE) ([id number])Indication: Abnormal TSH On: 20-Tab-337854:22 Request MICROALBUMIN: CREATININE RATIO (55157) AND (28757)Indication: Uncontrolled type II diabetes mellitus On: 10-Llc-390799:20 Request METABOLIC PANEL, COMPREHENSIVE ([id number])Indication: Uncontrolled type II diabetes mellitus On: 24-Bxj-680389:20 Request LIPID PANEL ([id number])Indication: Uncontrolled type II diabetes mellitus On: 84-Gls-297466:20 Request CBC WITH MANUAL DIFF ([id number])Indication: Uncontrolled type II diabetes mellitus On: 44-Ebn-842305:20 Request Comments: in three months (approximately) HEPATIC FUNCTION PANEL ([id number])Indication: Elevated LFTs On: 53-Lso-945948:42 Request CBC (Auto) ([id number])Indication: Uncontrolled type II diabetes mellitus On: 56-Rjq-974152:21 Request Metabolic Panel, Comprehensive ([id number])Indication: Uncontrolled type II diabetes mellitus On: :21 Request Lipid Panel ([id number])Indication: Uncontrolled type II diabetes mellitus On: :21 Request Comments: in three months (approximately) T3, FREE (TRIDOTHYRONINE) ([id number])Indication: Abnormal TSH On: :16 Request T4, FREE (THYROXINE) ([id number])Indication: Abnormal TSH On: :16 Request TSH ([id number])Indication: Abnormal TSH On: :16 Request Metabolic Panel, Basic ([id number])Indication: Other primary cardiomyopathies On: 78-Nfy-348765:53 Request Comments: end of month T4, FREE (THYROXINE) ([id number])Indication: Abnormal TSH On: 74-Wwj-093640:53 Request TSH ([id number])Indication: Abnormal TSH On: 94-Zck-309022:53 Request T3, FREE (TRIDOTHYRONINE) ([id number])Indication: Abnormal TSH On: 44-Asz-467971:53 Request TSH ([id number])Indication: Depression On: :16 Request METABOLIC PANEL, COMPREHENSIVE ([id number])Indication: Uncontrolled type II diabetes mellitus On: 9-Sdu-777073:10 Request MICROALBUMIN: CREATININE RATIO ([id number]) AND ([id number])Indication: Uncontrolled type II diabetes mellitus On: 7-Ill-338527:10 Request LIPID PANEL ([id number])Indication: Uncontrolled type II diabetes mellitus On: :10 Request CBC WITH MANUAL DIFF ([id number])Indication: Uncontrolled type II diabetes mellitus On: :10 Request Comments: in three months (approximately) Blood Glucose , Office (62713)Indication: Uncontrolled type II diabetes mellitus On: :10 Request HgA1C , Office ([id number])Indication: Uncontrolled type II diabetes mellitus On: 9-Npn-252848:10 Request MICROALBUMIN: CREATININE RATIO ([id number]) AND ([id number])Indication: Hypertension On: 13-Gmb-289215:58 Request Metabolic Panel, Basic ([id number])Indication: Hypertension On: 31-Hwa-434235:58 Request HgA1C , Office ([id number])Indication: Glucose intolerance (no malabsorption) On: 01-Obh-119438:31 Request HEPATIC FUNCTION PANEL (78605)Indication: Hypercholesterolemia On: 93-Hgr-215642:11 Request LIPID PANEL ([id number])Indication: Hypercholesterolemia On: 81-Rtj-309190:11 Request HEPATIC FUNCTION PANEL ([id number])Indication: Hypercholesterolemia On: 68-Gmn-459236:38 Request LIPID PANEL ([id number])Indication: Hypercholesterolemia On: :38 Request Planned Encounters Medical; [facility] 3 Month FU - On: 06-Nov-2018 11:30 [facility] Justyna Hallman MD, MD, Dana M Medical; [facility] Pre Wellness Exam (DB Nurse) - On: 11-Jan-2019 10:30 [facility] HEAVEN Tran; [facility] Wellness Exam (Doctor) - On: 28-Jan-2019 13:30 [facility] Viji CHANDRA, Justyna Kyle MD Planned Procedures PNEUM VAC ADLT/IMUMNOSPR, On: 11-Dec-2017 Intent SBC/INTRM ([id number])By: Viji CHANDRA, Comments: pneumovax prefilled syringe injection lot: [id number]:05/2019R DELT IMpt tolerated wellMSMITH,TOXICOLOGIST Justyna Kyle MD DEXA SCAN AXIAL SKELETON On: 11-Dec-2017 Intent ([id number])By: Justyna Hallman MD Comments: due 01-26 Justyna Hallman MD SCREENING DIGITAL TOMOSYNTHESIS On: 11-Dec-2017 Intent OF BREAST ([id number])By: Viji CHANDRA, Comments: due 01-26 Justyna Kyle MD Flu Vaccine (Quadrivalent) On: 17-Jul-2017 Intent 98210Bt: Justyna Hallman MD Comments: QUAD flu 0.5ml injectionlot number: [id number]: 12/2017R Deltoid IMpt tolerated wellAD TOXICOLOGIST Justyna Hallman MD MAGNETIC RESONANCE IMAGING OF On: 16-May-2017 Intent LEFT HIP WITH AND WITHOUT Comments: attention left femoral neck CONTRAST ([id number])By: Justyna Hallman MD, MD, Dana M Nuclear Medicine - Bone ScanBy: On: 09-May-2017 Intent Justyna Hallman MD, MD, Comments: spiculated lesion left iliac bone Justyna Gutierres Radiology - Lumbar SpineBy: On: 08-May-2017 Intent Justyna Hallman MD, MD, Dana M Radiology - Hip - BilateralBy: On: 08-May-2017 Intent Justyna Hallman MD, MD, Dana M SCREENING DIGITAL TOMOSYNTHESIS On: 08-May-2017 Intent OF BREAST ([id number])By: Justyna Hallman MD, MD, Dana M US DOPPLER CAROTID BILATERAL On: 09-Aug-2016 Intent ([id number])By: Justyna Hallman MD, MD, Dana M MAGNETIC RESONANCE IMAGING OF On: 09-Aug-2016 Intent RIGHT SHOULDER WITHOUT CONTRAST ([id number])By: Justyna Hallman MD, MD, Dana M MAGNETIC RESONANCE IMAGING OF On: 09-Aug-2016 Intent RIGHT SHOULDER WITHOUT CONTRAST ([id number])By: Justyna Hallman MD, MD, Dana M Flu Vaccine (Quadrivalent) On: 09-Aug-2016 Intent 92632Tb: Justyna Hallman MD Comments: Lot #:[id number] date:5-49-95Fclcvq given:0.5mlRoute: IMSite given:L DltdGiven by: ElaineVIS and ABN signed Fluarix Justyna Hallman MD TDAP VACCINE >7 IM ([id number])By: On: 03-May-2016 Intent Justyna Hallman MD, MD, Dana M Pap Smear, Medicare ([id number])By: On: 03-May-2016 Intent Justyna Hallman MD, MD, Dana M BILATERAL MAMMOGRAMS ([id number])By: On: 03-May-2016 Intent Justyna Hallman MD, MD, Dana M Toradol Injection, 30 mg On: 09-Feb-2016 Intent ([id number])By: Justyna Hallman MD, MD, Dana M Radiology - Cervical SpineBy: On: 09-Feb-2016 Intent Justyna Hallman MD, MD, Dana M Radiology - Shoulder - RightBy: On: 09-Feb-2016 Intent Justyna Hallman MD, MD, Dana M Carotid DopplerBy: Viji CHANDRA, On: 01-Sep-2015 Intent Justyna Kyle MD DEXA SCAN AXIAL SKELETON On: 01-Sep-2015 Intent ([id number])By: Justyna Hallman MD Comments: due 01-24 Justyna Hallman MD Flu Vaccine (Quadrivalent) On: 04-Aug-2015 Intent 33164Hv: Justyna Hallman MD Comments: Lot:[id number]:03/10/16Dose:0.5mLRoute:IMSite:L DltdGiven By:JKMVIS signed Justyna Hallman MD IMMUNIZ ADMNIN, 1 VAC, SNGL/COMBO On: 22-Jan-2015 Intent (61540)By: Justyna Hallman MD, MD, Dana M ZOSTER VACC, [place] ([id number])By: On: 22-Jan-2015 Intent Justyna Hallman MD, MD, Dana M INJECTION, PROLIA ([id number])By: On: 30-Oct-2014 Intent Visit, Nurse Comments: lot [id number] arm, SCprefilledMegan, TOXICOLOGIST Aware due in mid April and to call in March to let us know to assure gets sent to us Prevnar 13 ([id number])By: Viji On: 23-Oct-2014 Intent Justyna CHANDRA MD, Dana M MAMMOGRAM, SCREENING, BOTH BREAST On: 23-Oct-2014 Intent ([id number])By: Justyna Hallman MD, MD, Dana M Nuclear Medicine - OtherBy: On: 01-Aug-2014 Intent Justyna Hallman MD, MD, Comments: thyriod uptake Justyna Gutierres ADMINISTRATION OF INFLUENZA VIRUS On: 01-Aug-2014 Intent VACCINE ([id number])By: Viji CHANDRA, Justyna Kyle MD Flu Vaccine (Quadrivalent) On: 01-Aug-2014 Intent 86765Aq: Justyna Hallman MD Comments: Lot #:[id number] date:mount given:0.5mlRoute: IMSite given:left deltoid Given by: ASlarb Justyna Hallman MD Ultrasound - ThyroidBy: Viji On: 26-May-2014 Intent Justyna CHANDRA MD, Justyna Gutierres INJECTION, PROLIA (J0897)By: On: 24-Apr-2014 Intent Justyna Hallman MD, MD, Comments: Lot:[id number]:09/2016Dose:60mgRoute:subqSite:r armGiven By:AEDLFOVIS signed Justyna Gutierres MAMMOGRAM, SCREENING, BOTH On: 19-Dec-2013 Intent BREASTS (03404)By: Viji CHANDRA, Comments: due 01-22 Justyna Kyle MD DXA, BONE DENSITY, AXIAL SKELETON On: 19-Dec-2013 Intent ([id number])By: Justyna Hallman MD, MD, Dana M Eprescribed prescriptions On: 18-Sep-2013 Intent (G8553)By: Jodi Ortega Carotid DopplerBy: Viji CHANDRA, On: 17-Jun-2013 Intent Justyna Kyle MD FLU VAC, SPLIT, >3 YEARS, On: 17-Jun-2013 Intent INTRAMUSC (75583)By: Marc, Comments: Lot #:[id number] date:02.22Amount given:0.5mlRoute: IMSite given:L DltdGiven by: VIS and ABN signed HEAVEN IMMUNIZ ADMNIN, 1 VAC, SNGL/COMBO On: 17-Jun-2013 Intent (62584)By: HEAVEN Tran MAMMOGRAM, SCREENING, BOTH On: 22-Nov-2012 Intent BREASTS ([id number])By: Viji CHANDRA, Justyna Hallman MD, Justyna Gutierres Eprescribed prescriptions On: 24-Jul-2012 Intent (G8553)By: Yvonne Webb LPN L FLU VAC, SPLIT, >3 YEARS, On: 17-May-2012 Intent INTRAMUSC (58856)By: Marc, Comments: Lot:[id number]:03-10-13Dose:prefilledRoute:IMSite:L armGiven By:ADELFO COLLADO IMMUNIZ ADMNIN, 1 VAC, SNGL/COMBO On: 17-May-2012 Intent ([id number])By: HEAVEN Tran Venous Doppler - RightBy: Ciesa On: 09-Jan-2012 Intent Jailyn BAPTISTE Comments: call [facility] with wet Rafael worley Carotid DopplerBy: Viji CHANDRA, On: 12-Aug-2011 Intent Justyna Kyle MD Spirometry ([id number])By: Viji On: 28-Jul-2011 Intent Justyna CHANDRA MD, Dana M Comments: mild obstruction much better than was in 2008 Pulse Oximetry (43626)By: Viji On: 28-Jul-2011 Intent Justyna CHANDRA MD, Dana M Bone Density StudyBy: Viji CHANDRA, On: 28-Jul-2011 Intent Justyna Kyle MD FLU VAC, SPLIT, >3 YEARS, On: 12-Jul-2011 Intent INTRAMUSC ([id number])By: Jon GARCIA, Comments: Lot #[id number]-L arm, IMDose prefilledgiven by:Yvonne Stuart IMMUNIZ ADMNIN, 1 VAC, SNGL/COMBO On: 12-Jul-2011 Intent (59018)By: Yvonne Webb LPN Eprescribed prescriptions On: 08-Apr-2011 Intent (G8553)By: Justyna Hallman MD, MD, Dana M Aerosol Treatment (56815)By: On: 08-Apr-2011 Intent Justyna Hallman MD, MD, Dana M Pulse Oximetry (36398)By: On: 08-Apr-2011 Intent HAEVEN Tran Pulse Oximetry (68075)By: Ciesa On: 02-Dec-2010 Intent Jailyn BAPTISTE Aerosol Treatment (07301)By: On: 02-Dec-2010 Intent Ciesa Jailyn BAPTISTE Pulse Oximetry (28477)By: Geeta On: 29-Nov-2010 Intent OLIVAJailyn Comments: 94% Solu -Medrol Injection, 125 mg On: 29-Nov-2010 Intent ([id number])By: Geeta BAPTISTE Jailyn Cesar Comments: Lot #[id number]/1/12Site-right hipDose- 125mggiven by:[facility] Aerosol Treatment (96347)By: On: 29-Nov-2010 Intent Geeta BAPTISTE Lynda Pulse Oximetry (65470)By: Geeta On: 25-Oct-2010 Intent OLIVAJailyn Aerosol Treatment (67521)By: On: 25-Oct-2010 Intent Geeta BAPTISTE Lynda Radiology - Lumbar SpineBy: On: 14-Oct-2009 Intent Justyna Hallman MD, MD, Dana M Radiology - ChestBy: Viji CHANDRA, On: 03-Aug-2009 Intent Justyna Kyle MD Comments: PA and Lat monday, please call wet read to [phone] Pulse Oximetry (86413)By: Viji On: 03-Aug-2009 Intent Justyna CHANDRA MD, Dana M MAMMOGRAM, SCREENING, BOTH On: 27-Apr-2009 Intent BREASTS (55244)By: Viji CHANDRA, Justyna Kyle MD Bone Density StudyBy: Viji CHANDRA, On: 03-Apr-2009 Intent Justyna Kyle MD Pulse Oximetry (92638)By: On: 03-Apr-2009 Intent HEAVEN Tran Pulse Oximetry (61754)By: On: 30-Dec-2008 Intent HEAVEN Tran Aerosol Treatment (92954)By: On: 21-Nov-2008 Intent Viji CHANDRA, Justyna Kyle MD Pulse Oximetry (68746)By: On: 21-Nov-2008 Intent HEAVEN Tran Spirometry (37335)By: aMrc, On: 29-Sep-2008 Intent HEAVEN Pulse Oximetry (34204)By: On: 29-Sep-2008 Intent HEAVEN Tran Bio Z (21507)By: HEAVEN Tran On: 29-Sep-2008 Intent IMMUNIZ ADMNIN, 1 VAC, SNGL/COMBO On: 30-Jun-2008 Intent (24313)By: Justyna Hallman MD, MD, Dana M FLU VAC, SPLIT, >3 YEARS, On: 30-Jun-2008 Intent INTRAMUSC (19118)By: Viji CHANDRA, Comments: Lot #[id number]-left deltoidDose0.5 mlgiven by Justyna Pritchett LPN, MD Ultrasound - LiverBy: Viji CHANDRA, On: 30-Jun-2008 Intent Justyna Kyle MD Spirometry (34290)By: Marc On: 27-Mar-2008 Intent HEAVEN Pulse Oximetry (01441)By: On: 27-Mar-2008 Intent HEAVEN Tran Bio Z (64781)By: HEAVEN Tran On: 27-Mar-2008 Intent EKG (19725)By: HEAVEN Tran On: 20-Dec-2007 Intent Bio Z (89149)By: Justyna Hallman MD On: 20-Sep-2007 Intent Justyna Oliveira MD Pulse Oximetry (22032)By: Viji On: 20-Sep-2007 Intent Justyna CHANDRA MD, Dana M Bio Z ([id number])By: Justyna Hallman MD On: 19-Jun-2007 Intent Justyna Oliveira MD Bio Z (71397)By: Justyna Hallman MD On: 27-Nov-2006 Intent Justyna Oliveira MD IV Infusion (43346)By: Marc On: 25-Aug-2006 Intent HEAVEN INFUSION, NORMAL SALINE SOLUTION On: 24-Aug-2006 Intent , 250 CC (J7050)By: Justyna Hallman MD, MD, Dana M Rocephin Injection, 2 Gram On: 24-Aug-2006 Intent (J0696)By: Justyna Hallman MD Comments: BCXD 023 10/19 Justyna Hallman MD THER/PROPH/DIAG IV INF, INIT On: 24-Aug-2006 Intent (26334)By: Justyna Hallman MD, MD, Justyna Gutierres INFUSION, NORMAL SALINE SOLUTION On: 23-Aug-2006 Intent , 250 CC (J7050)By: Justyna Hallman MD, MD, Dana M Rocephin Injection, 2 Gram On: 23-Aug-2006 Intent (J0696)By: Justyna Hallman MD, MD, Dana M THER/PROPH/DIAG IV INF, INIT On: 23-Aug-2006 Intent (26483)By: Justyna Hallman MD, MD, Justyna Gutierres INFUSION, NORMAL SALINE SOLUTION On: 22-Aug-2006 Intent , 250 CC (J7050)By: Justyna Hallman MD, MD, Justyna Gutierres THER/PROPH/DIAG IV INF, INIT On: 22-Aug-2006 Intent (52672)By: Justyna Hallman MD, MD, Dana M Rocephin Injection, 2 Gram On: 22-Aug-2006 Intent (J0696)By: Justyna Hallman MD Comments: BCXD 023 OCT 2007. Started an IV right wrist 22 gauge. Infused well. IV left in. [facility] Justyna Hallman MD Planned Medications INJECTION, KETOROLAC TROMETHAMINE, PER 15 MG Ordered: 09-Feb-2016 Pending Justyna Hallman MD, MD, Dana M INJECTION, METHYLPREDNISOLONE SODIUM SUCCINATE, UP TO 125 MG Ordered: 29-Nov-2010 Pending Jailyn Connor CNP INJECTION, PROLIA Ordered: 24-Apr-2014 Pending Justyna Hallman MD, MD, Dana M INJECTION, PROLIA Ordered: 30-Oct-2014 Pending Visit, Nurse Instructions Name Dates Details Controlled diabetes mellitus type II without complication : How to access health information online Indication: Controlled diabetes mellitus type II without complication Controlled diabetes mellitus type II without complication : How to access health information online - Detail Indication: Controlled diabetes mellitus type II without complication Controlled diabetes mellitus type II without complication : Patient Instructions Indication: Controlled diabetes mellitus type II without complication BMI 38.0-38.9,adult : How to access health information online Indication: BMI 38.0-38.9,adult BMI 38.0-38.9,adult : How to access health information online - Detail Indication: BMI 38.0-38.9,adult BMI 38.0-38.9,adult : Patient Instructions Indication: BMI 38.0-38.9,adult Vitamin D deficiency, unspecified : How to access health information online Indication: Vitamin D deficiency, unspecified Vitamin D deficiency, unspecified : How to access health information online - Detail Indication: Vitamin D deficiency, unspecified Vitamin D deficiency, unspecified : Patient Instructions Indication: Vitamin D deficiency, unspecified BMI 36.0-36.9,adult : How to access health information online Indication: BMI 36.0-36.9,adult BMI 36.0-36.9,adult : How to access health information online - Detail Indication: BMI 36.0-36.9,adult BMI 36.0-36.9,adult : Patient Instructions Indication: BMI 36.0-36.9,adult BMI 36.0-36.9,adult : How to access health information online Indication: BMI 36.0-36.9,adult BMI 36.0-36.9,adult : How to access health information online - Detail Indication: BMI 36.0-36.9,adult BMI 36.0-36.9,adult : Patient Instructions Indication: BMI 36.0-36.9,adult Encounter for general adult medical examination with abnormal findings : How to access health information online Indication: Encounter for general adult medical examination with abnormal findings Encounter for general adult medical examination with abnormal findings : How to access health information online - Detail Indication: Encounter for general adult medical examination with abnormal findings Encounter for general adult medical examination with abnormal findings : Patient Instructions Indication: Encounter for general adult medical examination with abnormal findings Tobacco abuse, 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) : How to access health information online Indication: Tobacco abuse, 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, 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) : How to access health information online - Detail Indication: Tobacco abuse, 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, 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) : Patient Instructions Indication: Tobacco abuse, 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) Glenohumeral arthritis, right : How to access health information online Indication: Glenohumeral arthritis, right Glenohumeral arthritis, right : How to access health information online - Detail Indication: Glenohumeral arthritis, right Glenohumeral arthritis, right : Patient Instructions Indication: Glenohumeral arthritis, right Right shoulder pain : How to access health information online Indication: Right shoulder pain Right shoulder pain : How to access health information online - Detail Indication: Right shoulder pain Right shoulder pain : Patient Instructions Indication: Right shoulder pain Osteoporosis, senile : How to access health information online Indication: Osteoporosis, senile Osteoporosis, senile : How to access health information online - Detail Indication: Osteoporosis, senile Osteoporosis, senile : Patient Instructions Indication: Osteoporosis, senile GERD (gastroesophageal reflux disease) : How to access health information online Indication: GERD (gastroesophageal reflux disease) GERD (gastroesophageal reflux disease) : How to access health information online - Detail Indication: GERD (gastroesophageal reflux disease) GERD (gastroesophageal reflux disease) : Patient Instructions Indication: GERD (gastroesophageal reflux disease) Controlled diabetes mellitus type II without complication : How to access health information online Indication: Controlled diabetes mellitus type II without complication Controlled diabetes mellitus type II without complication : How to access health information online - Detail Indication: Controlled diabetes mellitus type II without complication Controlled diabetes mellitus type II without complication : Patient Instructions Indication: Controlled diabetes mellitus type II without complication Controlled diabetes mellitus type II without complication : How to access health information online Indication: Controlled diabetes mellitus type II without complication Controlled diabetes mellitus type II without complication : How to access health information online - Detail Indication: Controlled diabetes mellitus type II without complication Controlled diabetes mellitus type II without complication : Patient Instructions Indication: Controlled diabetes mellitus type II without complication Cellulitis : Patient Instructions Indication: Cellulitis Controlled diabetes mellitus type II without complication : Patient Instructions Indication: Controlled diabetes mellitus type II without complication Controlled diabetes mellitus type II without complication : Patient Instructions Indication: Controlled diabetes mellitus type II without complication NEED FOR PROPHYLACTIC VACCINATION AND INOCULATION AGAINST INFLUENZA (V04.81) (Renamed from Need for prophylactic vaccination and inoculation against influenza) : Patient Instructions Indication: NEED FOR PROPHYLACTIC VACCINATION AND INOCULATION AGAINST INFLUENZA (V04.81) (Renamed from Need for prophylactic vaccination and inoculation against influenza) Depression : Patient Instructions Indication: Depression Sinusitis, chronic : Patient Instructions Indication: Sinusitis, chronic Hypertension : Patient Instructions Indication: Hypertension Hypertension : Patient Instructions Indication: Hypertension Controlled diabetes mellitus type II without complication : Patient Instructions Indication: Controlled diabetes mellitus type II without complication Encounters Office Visit On: 31-Jul-2018 11:34 Encounter Reason: Annual Medicare Exam - The patient had reviewed and updated the family history, medication/s, past medical history and social history. Yes the patient did have a mini mental status exam done today. The End: 31-Jul-2018 12:09 activities of daily living the patient needs help with are none. The patient has driven in past 6 months and put area rugs through house. The patient has completed the following preventative measures: m ammography (). The patient does not have durable power of energy attorney or living will. The patient has noticed having problems with memory than others. Other providers contributing to the patient's ca re are optoelectronic technician (Dr. Mcnair) and other: (nail feeder Dr. Rivera Opthalm: Dr. 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), Encounter for general adult medical examination with abnormal findings, Vitamin D deficiency, unspecified, Osteoarthritis, generalized, Postsurgical malabsorption, Allergic rhinitis, GERD (gastroesophageal reflux disease), Low zinc level, Personal history of cerebral embolism (Renamed from H/O cerebral embolism), Hypothyroidism, Calcific tendinitis of right shoulder, Congestive heart failure, Long-term (current) use of anticoagulants (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), Other intervertebral disc degeneration, lumbar region, Hip pain, bilateral, Hypertension, Afib, Glenohumeral arthritis, right, Depression, Memory loss, Osteoporosis, senile, Cancer of thyroid, Obstructive sleep apnea, adult, Hypercholesterolemia, Sensorineural hearing loss (SNHL) of both ears, Obesity, Other primary cardiomyopathies, Carotid stenosis, Nonsmoker, Abnormal laboratory test , Hypocalcemia [facility] Office Visit On: 11-Jun-2018 11:06 [facility] End: 14-Jun-2018 5:45 Office Visit On: 07-May-2018 11:07 [facility] End: 07-May-2018 15:22 Office Visit On: 19-Mar-2018 11:03 Encounter Reason: Follow up for chronic medical issues - The patient feels well with minor complaints and has decreased energy level. Patient has been compliant with instructions. Current medication use: no side effects End: 19-Mar-2018 11:40 and compliant with dosing regimen. Patient sleeps 7 hours per night. Impact of disease: emotional impact-mild. Nutrition: balanced diet and supplemental vitamins. The medical issues the patient is follo wing up for include blood sugar issues, cardiac issues, depression, gastric reflux, high blood pressure, high cholesterol, hypothyroid, osteoarthritis, osteoporosis/osteopenia and other (SHYLA, obesity, hx. 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), Congestive heart failure, Calcific tendinitis of right shoulder, Hypothyroidism, Long-term (current) use of anticoagulants (Renamed from custodial current use of anticoagulant therapy), Obesity, Hypertension, Hip pain, bilateral, Other intervertebral disc degeneration, lumbar region, Postsurgical malabsorption, Osteoarthritis, generalized, Vitamin D deficiency, unspecified, Allergic rhinitis, Controlled diabetes mellitus type II without complication, Personal history of cerebral embolism (Renamed from H/O cerebral embolism), Low zinc level, GERD (gastroesophageal reflux disease), Osteoporosis, senile, Cancer of thyroid, Depression, Afib, Sensorineural hearing loss (SNHL) of both ears, Hypercholesterolemia, Postmenopausal (Renamed from Postmenopausal status), Obstructive sleep apnea, adult, Abnormal radionuclide bone scan, Abnormal bone xray, Carotid stenosis, Glenohumeral arthritis, right, Other primary cardiomyopathies, Nonsmoker, BMI 37.0-37.9, adult, Abnormal laboratory test, Encounter for hepatitis C virus screening test for high risk patient [facility] Office Visit On: 22-Jan-2018 13:00 [facility] End: 23-Jan-2018 15:32 Office Visit On: 11-Dec-2017 13:28 Encounter Reason: Follow up tests - Date: (11.20.17).Encounter Diagnosis: Vitamin D deficiency, unspecified, BMI 37.0-37.9, adult, Nonsmoker, Encounter for general adult medical examination with abnormal findings, Allergic rhinitis, End: 13-Dec-2017 20:57 Postsurgical malabsorption, Osteoarthritis, generalized, Hypercholesterolemia, Low zinc level, Depression, GERD (gastroesophageal reflux disease), Tobacco abuse, 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), Controlled diabetes mellitus type II without complication, BMI 36.0-36.9,adult, Personal history of cerebral embolism (Renamed from H/O cerebral embolism), Hypothyroidism, Long-term (current) use of anticoagulants (Renamed from custodial current use of anticoagulant therapy), Congestive heart failure, Calcific tendinitis of right shoulder, Hip pain, bilateral, Cancer of thyroid, Other intervertebral disc degeneration, lumbar region, Obesity, Afib, Hypertension, Osteoporosis, senile, Memory loss, Abnormal bone xray, Abnormal radionuclide bone scan, Obstructive sleep apnea, adult, Other primary cardiomyopathies, Glenohumeral arthritis, right, Carotid stenosis, Encounter for hepatitis C virus screening test for high risk patient, Screening mammogram, encounter for, Postmenopausal (Renamed from Postmenopausal status), Abnormal laboratory test, Sensorineural hearing loss (SNHL) of both ears, Pneumococcal vaccination given [facility] Phone Encounter On: 23-Nov-2017 16:08 Encounter Diagnosis: Afib End: 23-Nov-2017 16:12 [facility] Phone Encounter On: 21-Nov-2017 14:03 Encounter Diagnosis: UTI (urinary tract infection) End: 21-Nov-2017 14:04 [facility] Lab Order On: 07-Nov-2017 17:01 Encounter Diagnosis: Hypertension End: 07-Nov-2017 17:04 [facility] Office Visit On: 14-Aug-2017 10:55 Encounter Reason: Follow up for chronic medical issues - The patient feels well with minor complaints and has decreased energy level. Patient has been compliant with instructions. Current medication use: no side effects, End: 14-Aug-2017 11:42 compliant with dosing regimen and considered effective by patient. Patient sleeps 7 hours per night. Impact of disease: emotional impact-moderate. Nutrition: balanced diet and supplemental vitamins. 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), Hip pain, bilateral, Personal history of cerebral embolism (Renamed from H/O cerebral embolism), Congestive heart failure, Long-term (current) use of anticoagulants (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), Hypothyroidism, Cancer of thyroid, Osteoarthritis, generalized, Other intervertebral disc degeneration, lumbar region, Postsurgical malabsorption, Allergic rhinitis, Obesity, Hypertension, Hypercholesterolemia, GERD (gastroesophageal reflux disease), Afib, Depression, Low zinc level, Calcific tendinitis of right shoulder, Abnormal radionuclide bone scan, Abnormal bone xray, Memory loss, Obstructive sleep apnea, adult, Vitamin D deficiency, unspecified, Osteoporosis, senile, Carotid stenosis, Glenohumeral arthritis, right, Other primary cardiomyopathies, BMI 34.0-34.9,adult, BMI 35.0-35.9,adult, Screening mammogram, encounter for [facility] Office Visit On: 17-Jul-2017 13:07 Encounter Reason: Injections - The medication the patient is here to receive is other (quad flu).Encounter Diagnosis: Need for prophylactic vaccination and inoculation against influenza (Renamed from Need for immunization against influenza) End: 18-Jul-2017 9:39 [facility] Phone Encounter On: 16-May-2017 14:31 Encounter Diagnosis: Abnormal radionuclide bone scan End: 16-May-2017 14:33 [facility] Phone Encounter On: 09-May-2017 16:38 Encounter Diagnosis: Abnormal bone xray End: 09-May-2017 16:44 [facility] Office Visit On: 08-May-2017 9:42 Encounter Reason: Annual Medicare Exam - The patient had reviewed and updated the family history, medication/s, past medical history and social history. Yes the patient did have a mini mental status exam done today. The End: 08-May-2017 10:23 activities of daily living the patient needs help with are getting places out of walking distance. The patient has had urinary incontinence, driven in past 6 months, gotten lost (States I always get los t that's why I have Patrice take me) and put area rugs through house, but the patient has not had fecal incontinence, missed or ran out of medications to soon, fallen in the past 6 months, has a medalert necklace or bracelet or put handrails in bathroom. The patient has completed the following preventative measures: PAP smear (), mammography () and colonoscopy (). Other providers con tributing to the patient's care are optoelectronic technician (Tabby), gastrologist (Markel), it infrastructure engineer (Harjinder) and other: (Dr. Kareem ruff ??Endo Dr. 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), Congestive heart failure, Personal history of cerebral embolism (Renamed from H/O cerebral embolism), Osteoarthritis, generalized, Cancer of thyroid, Hypothyroidism, Afib, Osteoporosis, senile, Vitamin D deficiency, unspecified, Obstructive sleep apnea, adult, Other primary cardiomyopathies, Glenohumeral arthritis, right, Carotid stenosis, Calcific tendinitis of right shoulder, Low zinc level, Depression, Encounter for general adult medical examination with abnormal findings, Screening mammogram, encounter for, Low back pain (724.2), Hip pain, bilateral, Memory loss [facility] Office Visit On: 03-Jan-2017 10:15 Encounter Reason: Follow up for chronic medical issues - The patient feels well with minor complaints and has decreased energy level. Patient has been compliant with instructions. Current medication use: no side effects, End: 03-Jan-2017 10:57 compliant with dosing regimen and considered effective by patient. Patient sleeps 6 hours per night. Impact of disease: emotional impact-moderate. Nutrition: balanced diet and supplemental vitamins. Th e medical issues the patient is following up for include blood sugar issues, cardiac issues, depression, gastric reflux, high blood pressure, high cholesterol, hypothyroid, osteoarthritis, osteoporosis/ osteopenia and other (obesity, hx. thyroid cancer, DDD, hx. 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), Other primary cardiomyopathies, Osteoarthritis, generalized, Personal history of cerebral embolism (Renamed from H/O cerebral embolism), Congestive heart failure, Afib, Obstructive sleep apnea, adult, Postsurgical malabsorption, Allergic rhinitis, Obesity, GERD (gastroesophageal reflux disease), Other intervertebral disc degeneration, lumbar region, Hypertension, Vitamin D deficiency, unspecified, Hypercholesterolemia, Cancer of thyroid, Carotid stenosis, Glenohumeral arthritis, right, Calcific tendinitis of right shoulder, Hypothyroidism, Depression, Osteoporosis, senile, Osteoporosis, BMI 35.0-35.9,adult, BMI 34.0-34.9,adult, Screening mammogram, encounter for, Low zinc level, Encounter for general adult medical examination with abnormal findings [facility] Office Visit On: 09-Aug-2016 13:07 Encounter Diagnosis: BMI 35.0-35.9,adult, Encounter for general adult medical examination with abnormal findings, Tobacco abuse, 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), End: 11-Aug-2016 6:24 Need for prophylactic vaccination and inoculation against influenza (V04.81), Controlled diabetes mellitus type II without complication, Obesity, Allergic rhinitis, Postsurgical malabsorption, Hypertension, Vitamin D deficiency, unspecified, Osteoporosis, senile, Other intervertebral disc degeneration, lumbar region, GERD (gastroesophageal reflux disease), Cancer of thyroid, Obstructive sleep apnea, adult, Osteoarthritis, generalized, Other primary cardiomyopathies, Long-term (current) use of anticoagulants (Renamed from custodial current use of anticoagulant therapy), Glenohumeral arthritis, right, Encounter for gynecological examination without abnormal finding, Afib, Congestive heart failure, Carotid stenosis , Personal history of cerebral embolism (Renamed from H/O cerebral embolism), Hypothyroidism, Hypercholesterolemia, Screening mammogram, encounter for, Calcific tendinitis of right shoulder, BMI 34.0-34.9,adult, Osteoporosis, Depression [facility] Office Visit On: 03-May-2016 10:20 Encounter Reason: Annual Medicare Exam - The patient had reviewed and updated the family history, medication/s, past medical history and social history. Yes the patient did have a mini mental status exam done today. The End: 03-May-2016 11:07 activities of daily living the patient needs help with are housework. The patient has had fecal incontinence, driven in past 6 months and put area rugs through house. The patient has completed the [facility] wing preventative measures: PAP smear (2008), mammography (-2014) and colonoscopy (2008). The patient does not have durable power of energy attorney or living will. The patient has noticed getting bored and h aving problems with memory than others. Other providers contributing to the patient's care are optoelectronic technician (Dr. Mcnair ), gastrologist (Dr. Jean Baptiste ) and other: (Dr. [facility] ).Encounter Diagnosis: Encounter for general adult medical examination with abnormal findings, Screening mammogram, encounter for, Tobacco abuse, 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), BMI 34.0-34.9,adult, Cancer of thyroid, Encounter for gynecological examination without abnormal finding, Need for Tdap vaccination (Renamed from Need for [id number]-[id number] (Tdap) vaccine, adult/adolescent), Afib, GERD (gastroesophageal reflux disease), Fatigue, Congestive heart failure, Other intervertebral disc degeneration, lumbar region, Other primary cardiomyopathies, Osteoarthritis, generalized, Obstructive sleep apnea, adult, Osteoporosis, senile, Allergic rhinitis, Obesity, Controlled diabetes mellitus type II without complication, Vitamin D deficiency, unspecified, Glenohumeral arthritis, right, Hypertension, Neck pain, Postsurgical malabsorption, Personal history of cerebral embolism (Renamed from H/O cerebral embolism), Carotid stenosis, Hypercholesterolemia, Hypothyroidism, Calcific tendinitis of right shoulder, Osteoporosis, Right shoulder pain, Long-term (current) use of anticoagulants (Renamed from custodial current use of anticoagulant therapy) [facility] Office Visit On: 24-Mar-2016 9:45 Encounter Reason: Follow up acute care visit - The patient feeling better since last seen and improving. Patient has been compliant with instructions. Current medication use: no side effects and compliant with dosing reg End: 24-Mar-2016 10:24 imen. Patient sleeps 7 hours per night. Impact of disease: emotional impact-moderate. Nutrition: balanced diet and supplemental vitamins. The medical issues the patient is following up for include other (right shoulder pain).Encounter Diagnosis: Glenohumeral arthritis, right, Tobacco abuse, 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), Neck pain, Hypertension [facility] Historical Summary On: 22-Feb-2016 6:57 Encounter Diagnosis: Cancer of thyroid End: 22-Feb-2016 7:01 [facility] Phone Encounter On: 11-Feb-2016 10:50 Encounter Diagnosis: Calcific tendinitis of right shoulder, Glenohumeral arthritis, right End: 11-Feb-2016 10:54 [facility] Office Visit On: 09-Feb-2016 11:45 Encounter Diagnosis: Right shoulder pain, Tobacco abuse, 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), Neck pain, Osteoporosis End: 09-Feb-2016 12:27 [facility] Office Visit On: 04-Jan-2016 10:56 Encounter Reason: Follow up for chronic medical issues - The patient feels well with minor complaints and is sleeping well. Patient has been compliant with instructions. Current medication use: no side effects, compliant End: 04-Jan-2016 11:46 with dosing regimen and considered effective by patient. Patient sleeps 7 hours per night. Impact of disease: emotional impact-mild. Nutrition: balanced diet and supplemental vitamins. The medical issu es the patient is following up for include blood sugar issues, cardiac issues, depression, high blood pressure, high cholesterol, hypothyroid, osteoarthritis, osteoporosis/osteopenia and other (hx. of c erebral embolism, obesity, hx. of thyroid cancer, vitamin d def., SHYLA, hx. surgical malabsorption ).Encounter Diagnosis: Osteoporosis, senile, Tobacco abuse, 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), Paresthesia, Vitamin D deficiency, unspecified, Allergic rhinitis, Carotid stenosis, Hypercholesterolemia, Controlled diabetes mellitus type II without complication, Hypothyroidism, Hypertension, Obstructive sleep apnea, adult, GERD (gastroesophageal reflux disease), Cancer of thyroid, Osteoarthritis, generalized, Other primary cardiomyopathies, Postsurgical malabsorption, Afib, Fatigue, Personal history of cerebral embolism (Renamed from H/O cerebral embolism), Congestive heart failure, Obesity, Other intervertebral disc degeneration, lumbar region [facility] Office Visit On: 01-Sep-2015 10:52 Encounter Reason: Follow up for chronic medical issues - The patient feels well with minor complaints (pain in hips and knees), has decreased energy level and is sleeping poorly (hard time getting to sleep but once aslee End: 01-Sep-2015 11:36 p, does good. ??Had a sleep study a few months ago and I have a cpap). Patient has been compliant with instructions. Current medication use: no side effects, compliant with dosing regimen and considered effective by patient. Patient sleeps 7 hours per night. Impact of disease: emotional impact-mild. Nutrition: balanced diet and supplemental vitamins. The medical issues the patient is following up for include blood sugar issues, cardiac issues, depression, gastric reflux, high blood pressure, high cholesterol, hypothyroid, osteoporosis/osteopenia and other (hx. thyroid cancer, obesity, DDD, allergic rhinitis ).Encounter Diagnosis: Osteoporosis, senile, Atrial fibrillation (427.31), Hypothyroidism, Controlled diabetes mellitus type II without complication, Hypertension, GERD (gastroesophageal reflux disease), Other primary cardiomyopathies, Obstructive sleep apnea, adult, Vitamin D deficiency, unspecified, Paresthesia, Allergic rhinitis, Hypercholesterolemia, Carotid stenosis, Personal history of cerebral embolism (Renamed from H/O cerebral embolism), Fatigue, Congestive heart failure, Other and unspecified postsurgical nonabsorption (579.3), Other intervertebral disc degeneration, lumbar region, Obesity, Cancer of thyroid, Osteoarthritis, generalized [facility] Office Visit On: 04-Aug-2015 15:12 Encounter Reason: Injections - The medication the patient is here to receive is other (flushot).Encounter Diagnosis: Need for prophylactic vaccination and inoculation against influenza (V04.81) End: 04-Aug-2015 17:50 [facility] Office Visit On: 30-Apr-2015 11:01 Encounter Reason: Follow up for chronic medical issues - The patient feels well with minor complaints, has decreased energy level and is sleeping poorly (hard time getting to sleep but once asleep, does good. Had a slee End: 30-Apr-2015 11:33 p study a few months ago and I have a cpap). Patient has been compliant with instructions. Current medication use: no side effects, compliant with dosing regimen and considered effective by patient. Isha bradley sleeps 7 hours per night. Impact of disease: emotional impact-mild. Nutrition: balanced diet and supplemental vitamins. The medical issues the patient is following up for include blood sugar issues , cardiac issues, depression, gastric reflux, high blood pressure, high cholesterol, hypothyroid, osteoporosis/osteopenia and other (hx. thyroid cancer, obesity, DDD, allergic rhinitis ).Encounter Diagnosis: Hypothyroidism, Hypercholesterolemia (272.0), Congestive Heart Failure (428.0), Type II Diabetes,controlled (250.00), Other and unspecified postsurgical nonabsorption (579.3), Allergic Rhinitis(477.9), Cardiomyopathies (425.4), Personal history of cerebral embolism (Renamed from H/O cerebral embolism), Degenerative Disc Disease - Lumbar (722.52), GERD (530.81), Fatigue, Obesity, Obstructive sleep apnea (327.23), Cancer of thyroid, Atrial fibrillation (427.31), Hypertension 401.1 (Renamed from Hypertension (401.0)), Osteoporosis, Senile (733.01), DEFICIENCY, VITAMIN D NOS (268.9), Carotid stenosis (433.10), Paresthesia [facility] Office Visit On: 22-Jan-2015 11:38 Encounter Reason: Follow up for chronic medical issues - The patient feels well with minor complaints and has decreased energy level. Patient has been compliant with instructions. Current medication use: no side effects, End: 22-Jan-2015 12:22 compliant with dosing regimen and considered effective by patient. Patient sleeps 7 hours per night. Impact of disease: emotional impact-mild. Nutrition: balanced diet and supplemental vitamins. The me dical issues the patient is following up for include blood sugar issues, cardiac issues, depression, gastric reflux, high blood pressure, high cholesterol, hypothyroid, osteoporosis/osteopenia and other (hx. thyroid cancer, obesity, DDD, allergic rhinitis ).Encounter Diagnosis: Type II Diabetes,controlled (250.00), Degenerative Disc Disease - Lumbar (722.52), GERD (530.81), Obstructive sleep apnea (327.23), Fatigue, Personal history of cerebral embolism (Renamed from H/O cerebral embolism), Abnormal TSH (794.5), Other and unspecified postsurgical nonabsorption (579.3), Congestive Heart Failure (428.0), Allergic Rhinitis(477.9), Hypothyroidism, Cardiomyopathies (425.4), Obesity, Osteoporosis, Senile (733.01), Hypercholesterolemia (272.0), Cancer of thyroid, DEFICIENCY, VITAMIN D NOS (268.9), Carotid stenosis (433.10), Hypertension 401.1 (Renamed from Hypertension (401.0)), Atrial fibrillation (427.31), Acute pansinusitis [facility] Office Visit On: 30-Oct-2014 13:50 Encounter Reason: Injections - The medication the patient is here to receive is other.Encounter Diagnosis: Osteoporosis, Senile (733.01) End: 31-Oct-2014 7:47 [facility] Lab Order On: 28-Oct-2014 9:59 Encounter Diagnosis: Hypercholesterolemia (272.0) End: 28-Oct-2014 10:02 [facility] Office Visit On: 23-Oct-2014 10:31 Encounter Reason: Follow up for chronic medical issues - The patient feels well with minor complaints and has decreased energy level. Patient has been compliant with instructions. Current medication use: no side effects, End: 23-Oct-2014 11:14 compliant with dosing regimen and considered effective by patient. Patient sleeps 7 hours per night. Impact of disease: emotional impact-mild. Nutrition: balanced diet and supplemental vitamins. The me dical issues the patient is following up for include blood sugar issues, cardiac issues, depression, gastric reflux, high blood pressure, high cholesterol, hypothyroid, osteoporosis/osteopenia and other (hx. thyroid cancer, obesity, DDD, allergic rhinitis ).Encounter Diagnosis: Type II Diabetes,controlled (250.00), Other and unspecified postsurgical nonabsorption (579.3), Abnormal TSH (794.5), Allergic Rhinitis(477.9), Obesity, Congestive Heart Failure (428.0), Personal history of cerebral embolism (Renamed from H/O cerebral embolism), GERD (530.81), Degenerative Disc Disease - Lumbar (722.52), Fatigue, Obstructive sleep apnea (327.23), Thyroid nodule, Cardiomyopathies (425.4), Cancer of thyroid, Osteoporosis, Senile (733.01), Hypothyroidism, Hypercholesterolemia (272.0), Carotid stenosis (433.10), DEFICIENCY, VITAMIN D NOS (268.9), Atrial fibrillation (427.31), Hypertension 401.1 (Renamed from Hypertension (401.0)), Breast cancer screening, Need for vaccination against Streptococcus pneumoniae [facility] Historical Summary On: 23-Oct-2014 10:16 Encounter Diagnosis: Cancer of thyroid, Hypothyroidism, Osteoporosis, Senile (733.01) End: 23-Oct-2014 10:23 [facility] Historical Summary On: 14-Oct-2014 12:54 [facility] End: 14-Oct-2014 12:56 Office Visit On: 18-Aug-2014 11:47 Encounter Reason: Follow up acute care visit - The patient feels the same. Patient has been compliant with instructions. Current medication use: no side effects and compliant with dosing regimen. Patient sleeps 7 hours p End: 18-Aug-2014 12:43 er night. Nutrition: balanced diet.Encounter Diagnosis: Thyroid nodule, Cardiomyopathies (425.4) [facility] Office Visit On: 01-Aug-2014 10:01 Encounter Reason: Follow up, Diagnostic Procedure Results - Diagnostic tests include ultrasound (thyroid ). Date: (). Follow up visit with no current symptoms.Encounter Diagnosis: End: 01-Aug-2014 11:27 Need for prophylactic vaccination and inoculation against influenza (V04.81), Thyroid nodule, SOB (786.05), Fatigue, Abnormal TSH (794.5), Type II Diabetes,controlled (250.00) [facility] Office Visit On: 04-Jul-2014 8:10 Encounter Reason: Follow up acute care visit - The medical issues the patient is following up for include All identified problems below and cellulitis.Encounter Diagnosis: Face pain, Cellulitis End: 04-Jul-2014 10:58 [facility] Office Visit On: 30-Jun-2014 9:54 Encounter Reason: Skin Problems - The onset of the skin problems has been sudden and they have been occurring in a persistent pattern. The course has been increasing. The problem is characterized as a change in skin colo End: 30-Jun-2014 10:46 r. There has been associated fatigue, fever and pain.Encounter Diagnosis: Cellulitis, Fever, Face pain [facility] Phone Encounter On: 26-May-2014 16:34 Encounter Diagnosis: Thyroid nodule End: 26-May-2014 16:36 [facility] Office Visit On: 24-Apr-2014 13:59 Encounter Reason: Injections - The medication the patient is here to receive is other (prolia).Encounter Diagnosis: Osteoporosis, Senile (733.01) End: 28-Apr-2014 8:08 [facility] Office Visit On: 25-Mar-2014 10:17 Encounter Reason: Follow up for chronic medical issues - The patient feels well with minor complaints and has decreased energy level. Patient has been compliant with instructions. Current medication use: no side effects, End: 25-Mar-2014 11:06 compliant with dosing regimen and considered effective by patient. Patient sleeps 7 hours per night. Impact of disease: emotional impact-mild. Nutrition: balanced diet and supplemental vitamins. The me dical issues the patient is following up for include blood sugar issues, cardiac issues, depression, gastric reflux, high blood pressure, high cholesterol, osteoporosis/osteopenia and other (SHYLA, DDD, vitamin d def. )., [ADDITIONAL REASON] Follow up tests - Diagnostic tests include other (bone dx and carotid doppler). Date: (March 2014). Encounter Diagnosis: Hypertension 401.1 (Renamed from Hypertension (401.0)), Hypercholesterolemia (272.0), DEFICIENCY, VITAMIN D NOS (268.9), Type II Diabetes,controlled (250.00), Depression (311.), Other and unspecified postsurgical nonabsorption (579.3), Personal history of cerebral embolism (Renamed from H/O cerebral embolism), Degenerative Disc Disease - Lumbar (722.52), Obstructive sleep apnea (327.23), Abnormal TSH (794.5), GERD (530.81), Obesity, Osteopenia (733.90), Allergic Rhinitis(477.9), Atrial fibrillation (427.31), Carotid stenosis (433.10), Cardiomyopathies (425.4), Congestive Heart Failure (428.0), Osteoporosis, Senile (733.01) [facility] Office Visit On: 19-Dec-2013 10:11 Encounter Reason: Follow up for chronic medical issues - The patient feels well with minor complaints and has decreased energy level. Patient has been compliant with instructions. Current medication use: no side effects, End: 19-Dec-2013 10:48 compliant with dosing regimen and considered effective by patient. Patient sleeps 7 hours per night. Impact of disease: emotional impact-mild. Nutrition: balanced diet and supplemental vitamins. The me dical issues the patient is following up for include blood sugar issues, cardiac issues, depression, gastric reflux, high blood pressure, high cholesterol, osteoporosis/osteopenia and other (SHYLA, DDD, vitamin d def. ).Encounter Diagnosis: Type II Diabetes,controlled (250.00), Obstructive sleep apnea (327.23), Abnormal TSH (794.5), GERD (530.81), Degenerative Disc Disease - Lumbar (722.52), Depression (311.), Other and unspecified postsurgical nonabsorption (579.3), Allergic Rhinitis(477.9), Personal history of cerebral embolism (Renamed from H/O cerebral embolism), Atrial fibrillation (427.31), DEFICIENCY, VITAMIN D NOS (268.9), Hypercholesterolemia (272.0), Hypertension 401.1 (Renamed from Hypertension (401.0)), Osteopenia (733.90), Carotid stenosis (433.10), Cardiomyopathies (425.4), Congestive Heart Failure (428.0), Obesity [facility] Office Visit On: 18-Sep-2013 10:14 Encounter Reason: Follow up for chronic medical issues - The patient feels well with minor complaints, has decreased energy level and is sleeping well. Patient has been compliant with instructions. Current medication use End: 18-Sep-2013 10:34 : no side effects, compliant with dosing regimen and considered effective by patient. Patient sleeps 7 hours per night. Impact of disease: emotional impact-mild. Nutrition: balanced diet and supplementa l vitamins. The medical issues the patient is following up for include blood sugar issues, cardiac issues, depression (anxiety ), gastric reflux, high blood pressure, high cholesterol, osteoporosis/oste openia and other (SHYLA, allergic rhinitis, DDD, Vitamin D def., leukopenia, CHF ).Encounter Diagnosis: Type II Diabetes,controlled (250.00), arthritis,unspecified (716.90), Unspecified visual disturbance (368.9), Sinusitis,chronic (473.9), Other and unspecified postsurgical nonabsorption (579.3), Depression (311.), Hypertension 401.1 (Renamed from Hypertension (401.0)), Personal history of cerebral embolism (Renamed from H/O cerebral embolism), Allergic Rhinitis(477.9), Abnormal TSH (794.5), Obstructive sleep apnea (327.23), DEFICIENCY, VITAMIN D NOS (268.9), Degenerative Disc Disease - Lumbar (722.52), GERD (530.81), Carotid stenosis (433.10), Atrial fibrillation (427.31), Leukopenia (Renamed from Decreased leukocytes), Osteopenia (733.90), Hypercholesterolemia (272.0), Congestive Heart Failure (428.0), Cardiomyopathies (425.4) [facility] Office Visit On: 17-Jun-2013 10:51 Encounter Reason: Follow up for chronic medical issues - The patient feels well with minor complaints and has decreased energy level. Patient has been compliant with instructions. Current medication use: no side effects, End: 17-Jun-2013 11:25 compliant with dosing regimen and considered effective by patient. Patient sleeps 7 hours per night. Impact of disease: emotional impact-mild. Nutrition: balanced diet and supplemental vitamins. The me dical issues the patient is following up for include blood sugar issues, cardiac issues, depression (anxiety ), gastric reflux, high blood pressure, high cholesterol, osteoporosis/osteopenia and other ( SHYLA, allergic rhinitis, DDD, Vitamin D def., leukopenia, CHF ).Encounter Diagnosis: Type II Diabetes,controlled (250.00), Need for prophylactic vaccination and inoculation against influenza (V04.81), Personal history of cerebral embolism (V12.59), Carotid stenosis (433.10), Hypertension 401.1 (Renamed from Hypertension (401.0)), Allergic Rhinitis(477.9), Atrial fibrillation (427.31), Obstructive sleep apnea (327.23), Abnormal TSH (794.5), Unspecified visual disturbance (368.9), arthritis,unspecified (716.90), Sinusitis,chronic (473.9), Depression (311.), Other and unspecified postsurgical nonabsorption (579.3), Osteopenia (733.90), Leukopenia (288.50), Hypercholesterolemia (272.0), Cardiomyopathies (425.4), Congestive Heart Failure (428.0), Degenerative Disc Disease - Lumbar (722.52), DEFICIENCY, VITAMIN D NOS (268.9), GERD (530.81) [facility] Historical Summary On: 15-Apr-2013 21:45 [facility] End: 15-Apr-2013 21:46 Office Visit On: 15-Mar-2013 7:49 Encounter Reason: Follow up for chronic medical issues - The patient feels well with minor complaints and has decreased energy level. Patient has been compliant with instructions. Current medication use: no side effects, End: 15-Mar-2013 8:29 compliant with dosing regimen and considered effective by patient. Patient sleeps 7 hours per night. Impact of disease: emotional impact-mild. Nutrition: balanced diet and supplemental vitamins. The in dical issues the patient is following up for include blood sugar issues, cardiac issues, depression, high blood pressure, high cholesterol, osteoporosis/osteopenia and other (abnormal TSH,SHYLA, DDD,elevated LFT's,allergic rhinitis ). 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), DEFICIENCY, VITAMIN D NOS (268.9), Osteopenia (733.90), Obstructive sleep apnea (327.23), Unspecified visual disturbance (368.9), Sinusitis,chronic (473.9), arthritis,unspecified (716.90), Elevated LFT (790.6), Carotid stenosis (433.10), Personal history of cerebral embolism (V12.59), Hypercholesterolemia (272.0), Hypertension 401.1 (Renamed from Hypertension (401.0)), Atrial fibrillation (427.31), Allergic Rhinitis(477.9), Congestive Heart Failure (428.0), Cardiomyopathies (425.4), Degenerative Disc Disease - Lumbar (722.52), GERD (530.81), Leukopenia (288.50) [facility] Annotation/Addendum On: 21-Jan-2013 11:26 Encounter Diagnosis: Hypertension 401.1 (Renamed from Hypertension (401.0)) End: 21-Jan-2013 11:27 [facility] Office Visit On: 22-Nov-2012 10:23 Encounter Reason: Follow up for chronic medical issues - The patient feels well with minor complaints and has decreased energy level. Patient has been compliant with instructions. Current medication use: no side effects End: 22-Nov-2012 11:15 and compliant with dosing regimen. Patient sleeps 7 hours per night. Impact of disease: emotional impact-mild. Nutrition: balanced diet and supplemental vitamins. 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), Allergic Rhinitis(477.9), Abnormal TSH (794.5), Osteopenia (733.90), Depression (311.), Hypercholesterolemia (272.0), DEFICIENCY, VITAMIN D NOS (268.9), Carotid stenosis (433.10), Cardiomyopathies (425.4), Congestive Heart Failure (428.0), GERD (530.81), Degenerative Disc Disease - Lumbar (722.52), Personal history of cerebral embolism (V12.59), Well Woman Exam (V72.31) (Pap,Mammo,Routine Female) (Renamed from Well Woman V72.31 (p,m)) [facility] Office Visit On: 16-Aug-2012 10:50 Encounter Reason: Follow up for chronic medical issues - The patient feels well with minor complaints, has decreased energy level and is sleeping well. Patient has been compliant with instructions. Current medication use End: 16-Aug-2012 11:11 : no side effects, compliant with dosing regimen and considered effective by patient. Patient sleeps 8 hours per night. Impact of disease: emotional impact-moderate. Nutrition: balanced diet and supplem ental vitamins. 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), Backache, unspecified (724.5), Osteopenia (733.90), arthritis,unspecified (716.90), CVA (437.9), Unspecified visual disturbance (368.9), Atrial fibrillation (427.31), Elevated LFT (790.6), Abnormal TSH (794.5), Depression (311.), Hypercholesterolemia (272.0), DEFICIENCY, VITAMIN D NOS (268.9), Congestive Heart Failure (428.0), Cardiomyopathies (425.4), Degenerative Disc Disease - Lumbar (722.52), GERD (530.81), Carotid stenosis (433.10) [facility] Office Visit On: 24-Jul-2012 13:42 Encounter Reason: Follow up acute care visit - The medical issues the patient is following up for include depression and high blood pressure.Encounter Diagnosis: Depression (311.), Hypertension 401.1 (Renamed from Hypertension (401.0)) End: 24-Jul-2012 14:11 [facility] Office Visit On: 10-Jul-2012 13:23 Encounter Reason: high bloo - ongoing with stressors. ??States was really bad over the weekend.I took it a lot in the beginning cause I was shocked by the numbers and like yesterday, i took it once.125-187/68-91 pulse 49-80Encounter Diagnosis: End: 10-Jul-2012 13:48 Hypertension 401.1 (Renamed from Hypertension (401.0)), Depression (311.) [facility] Phone Encounter On: 18-May-2012 16:31 Encounter Diagnosis: DEFICIENCY, VITAMIN D NOS (268.9), Hypercalcemia(275.42) End: 18-May-2012 16:34 [facility] Office Visit On: 17-May-2012 10:06 Encounter Reason: Follow up for chronic medical issues - The patient feels well with minor complaints, has good energy level and is sleeping well. Patient has been compliant with instructions. Current medication use: no End: 17-May-2012 10:46 side effects, compliant with dosing regimen and considered effective by patient. Patient sleeps 7 hours per night. Impact of disease: emotional impact-mild. Nutrition: balanced diet and supplemental vit amins. The medical issues the patient is following up for include blood sugar issues, cardiac issues, depression, gastric reflux, high blood pressure, high cholesterol, hypothyroid, osteoporosis/osteope johanny and other (allergic rhinitis, obesit, vitamin d def., SHYLA, elevated lft's ).Encounter Diagnosis: Depression (311.), Allergic Rhinitis(477.9), Type II Diabetes,controlled (250.00), DEFICIENCY, VITAMIN D NOS (268.9), Low back pain (724.2), Need for prophylactic vaccination and inoculation against influenza (V04.81), Hypercholesterolemia (272.0), GERD (530.81), Cardiomyopathies (425.4), Congestive Heart Failure (428.0), Hypertension 401.1 (Renamed from Hypertension (401.0)), Morbid obesity (278.01), Degenerative Disc Disease - Lumbar (722.52), Atrial fibrillation (427.31), Carotid stenosis (433.10), Obstructive sleep apnea (327.23), Elevated LFT (790.6), Abnormal TSH (794.5) [facility] Office Visit On: 14-Feb-2012 11:37 Encounter Reason: Follow up for chronic medical issues - The patient feels well with minor complaints and has decreased energy level. Patient has been compliant with instructions. Current medication use: compliant with d End: 14-Feb-2012 12:06 osing regimen and considered effective by patient. Patient sleeps 7 hours per night. Impact of disease: emotional impact-mild. Nutrition: balanced diet and supplemental vitamins. The medical issues the patient is following up for include blood sugar issues, cardiac issues, depression, high blood pressure, high cholesterol, osteoporosis/osteopenia and other (SHYLA, elevated lft's, DDD, obesity, CHF, CVA, allergic rhinitis ).Encounter Diagnosis: Type II Diabetes,controlled (250.00), Carotid stenosis (433.10), Osteopenia (733.90), Pain in limb (729.5), Atrial fibrillation (427.31), CVA (437.9), Degenerative Disc Disease - Lumbar (722.52), Morbid obesity (278.01), Depression (311.), Hypercholesterolemia (272.0), Hypertension 401.1 (Renamed from Hypertension (401.0)), Congestive Heart Failure (428.0), Cardiomyopathies (425.4), GERD (530.81), Abnormal TSH (794.5), 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 Patient has been non-compliant (d/c the pravastatin) with instructions. Patient sleeps 8 hours per night. The medic End: 24-Jan-2012 11:49 al issues the patient is following up for include All identified problems below and other (R leg pain).Encounter Diagnosis: Pain in limb (729.5) [facility] Office Visit On: 09-Jan-2012 11:55 Encounter Reason: Leg pain - The leg pain began gradually over time and has been occurring for 2 weeks. The symptoms have been occurring in a persistent pattern. The symptoms are described as a sharp, stabbing pain and a End: 09-Jan-2012 12:14 re ??severe. The symptoms occur on exertion. There is involvement of the right lower extremity. There are no precipitating factors. There are no aggravating factors. Relief is provided by rest and other (Vicodin). Note for Leg pain: has history of a-fib. She had been taking Coumadin but was recently changed to Xarelto per Dr. Rothman.Encounter Diagnosis: Pain in limb (729.5) [facility] Phone Encounter On: 19-Dec-2011 7:53 Encounter Diagnosis: CVA (437.9) End: 19-Dec-2011 7:55 [facility] Office Visit On: 14-Nov-2011 11:17 Encounter Reason: Follow up, Laboratory Test Results - Date: (labs oct 2011). There is a family history of cardiovascular disease (brother) and myocardial infarction before age 55 (mother, uncles)., End: 14-Nov-2011 12:22 [ADDITIONAL REASON] Follow up for chronic medical issues - The patient feels well with minor complaints, has decreased energy level and is sleeping poorly. Patient has been compliant with instructions. Current medication use: no side effects, compliant with dosing regimen and considered effective by patient. Patient sleeps 7 hours per night. Impact of disease: emotional impact-mild. Nutrition: [facility] diet and supplemental vitamins. The medical issues the patient is following up for include blood sugar issues, cardiac issues, depression, gastric reflux and other (obesity, anemia, DDD, SHYLA, allergic rhinitis ). , [ADDITIONAL REASON] Follow up tests - Diagnostic tests include other (bone dx and carotid doppler). 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 Date: (09/20/11). Current symptoms include cough (green) and headache (frontal). There is no family history of breast cancer, cardiovascular End: 12-Oct-2011 12:14 disease, cystic fibrosis, Down's syndrome, mental retardation or myocardial infarction before age 55. Past medical history includes cardiovascular disease and other (CHF, DDD, GERD, DM, CHO).Encounter Diagnosis: Osteopenia (733.90), Acute sinusitis, unspecified (461.9) [facility] Office Visit On: 12-Aug-2011 10:46 Encounter Reason: Follow up acute care visit - The patient feeling better since last seen. Patient has been compliant with instructions. Current medication use: compliant with dosing regimen (taking benadryl at night and End: 12-Aug-2011 12:09 it helped a lot). Patient sleeps 7 hours per night. The medical issues the patient is following up for include other.Encounter Diagnosis: Hypercholesterolemia (272.0), Carotid stenosis (433.10), Type II Diabetes,controlled (250.00) [facility] Office Visit On: 28-Jul-2011 12:00 Encounter Reason: Follow up for chronic medical issues - The patient feels well with minor complaints, has decreased energy level and is sleeping poorly. Patient has been compliant with instructions. Current medication u End: 28-Jul-2011 12:41 se: no side effects, compliant with dosing regimen and considered effective by patient. Patient sleeps 7 hours per night. Impact of disease: emotional impact-mild. Nutrition: balanced diet and supplemen poli vitamins. 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 Patient has been compliant with instructions. Current medication use: no side effects and compliant with dosing reg End: 11-Apr-2011 9:51 imen. Patient sleeps 4 hours per night. The medical issues the patient is following up for include All identified problems below and URI.Encounter Diagnosis: BRONCHITIS, NOT SPECIFIED ACUTE OR CHRONIC (490.) [facility] Office Visit On: 08-Apr-2011 10:55 Encounter Reason: Cough - The onset of the cough has been acute. The cough is characterized as productive of mucoid sputum. The amount of sputum produced is less than a half a cup per day. The cough occurs all the time. End: 08-Apr-2011 11:23 The symptoms have been associated with dyspnea, hoarseness and runny nose. the color of the sputum is yellowish.Encounter Diagnosis: SOB (786.05), Bronchitis,Acute (466.0), Type II Diabetes,controlled (250.00) [facility] Office Visit On: 02-Dec-2010 10:58 Encounter Reason: Follow up acute care visit - The patient feeling better since last seen and improving. Patient has been compliant with instructions. Current medication use: no side effects, compliant with dosing regime End: 02-Dec-2010 12:17 n and considered effective by patient. Patient sleeps 6 hours per night. The medical issues the patient is following up for include All identified problems below and URI (bronchitis).Encounter Diagnosis: BRONCHITIS, NOT SPECIFIED ACUTE OR CHRONIC (490.), Eustachian tube dysfunction (381.81), Wheezing (786.07) [facility] Office Visit On: 29-Nov-2010 8:16 Encounter Reason: Sinusitis/ - The duration of the symptoms are 4 days The course has been worsening. The sinusitis/ are relieved by nothing (robitussin CF). Associated features include The symptoms have been associated End: 29-Nov-2010 9:47 with cough, ear pain (bilatteral ), nasal discharge/stuffy nose (yellow/green) and sinus pain (facial). No previous evaluations were reported.Encounter Diagnosis: Wheezing (786.07), SOB (786.05), Cough (786.2), Vertigo (780.4), Eustachian tube dysfunction (381.81), BRONCHITIS, NOT SPECIFIED ACUTE OR CHRONIC (490.) [facility] Office Visit On: 25-Oct-2010 11:35 Encounter Diagnosis: Unspecified Diagnosis End: 25-Oct-2010 11:36 [facility] Office Visit On: 25-Oct-2010 9:47 Encounter Reason: Sinusitis/ - The duration of the symptoms are 4 weeks The course has been worsening. The sinusitis/ has no relieving factors. Associated features include The symptoms have been associated with cough (pr End: 25-Oct-2010 10:10 oductive), ear pain (bilatteral), nasal discharge/stuffy nose (yellow) and sinus pain (facial). No previous evaluations were reported.Encounter Diagnosis: Acute sinusitis, unspecified (461.9), Cough (786.2) [facility] Historical Summary On: 17-Dec-2009 12:23 [facility] End: 17-Dec-2009 12:23 Office Visit On: 13-Nov-2009 13:33 Encounter Reason: Back pain - The onset of the pain has been sudden and has been occurring in a persistent pattern for 3 months. The course has been constant. The pain is characterized as a dull ache. The pain is describ End: 13-Nov-2009 14:16 ed as being located in the lower back. The pain does not radiate. The pain is precipitated by trauma. The symptoms have no aggravating factors. The symptoms have no relieving factors. The pain has been associated with back stiffness. Encounter Diagnosis: Low back pain (724.2), Degenerative Disc Disease - Lumbar (722.52) [facility] Office Visit On: 14-Oct-2009 10:41 Encounter Diagnosis: Type II Diabetes,controlled (250.00), Hypertension 401.1 (Renamed from Hypertension (401.0)), Morbid obesity (278.01), Hypercholesterolemia (272.0), CVA (437.9), Atrial fibrillation (427.31), Congestive Heart Failure (428.0), End: 14-Oct-2009 11:23 Depression (311.), Obstructive sleep apnea (327.23), arthritis,unspecified (716.90), Acute sinusitis, unspecified (461.9), Backache, unspecified (724.5), Allergic Rhinitis(477.9), Headache (784.0), Heart disease, unspecified (429.9), Sinusitis,chronic (473.9), Unspecified visual disturbance (368.9), GERD (530.81), Cardiomyopathies (425.4), Hypercalcemia(275.42), Abnormal TSH (794.5), Elevated LFT (790.6), Hypokalemia (276.8), Osteopenia (733.90), Other atopic dermatitis and related conditions (691.8), Low back pain (724.2) [facility] Office Visit On: 26-Aug-2009 11:30 Encounter Reason: Follow up hospital - Reason for ER visit: note: (Operative- gastric bypass surgery). The patient feels well with minor complaints (rash and sinus infection). Patient has been compliant with instructions End: 26-Aug-2009 12:09 . Current medication use: no side effects. Patient sleeps 8 hours per night. Nutrition: supplemental vitamins (d/t surgery). Hospital procedures performed were other (gastric bypass). Encounter Diagnosis: Rash (782.1), Type II Diabetes,controlled (250.00), Hypertension 401.1 (Renamed from Hypertension (401.0)), Morbid obesity (278.01) [facility] Office Visit On: 10-Aug-2009 16:31 Encounter Diagnosis: SOB (786.05), pulse ox in office 96% End: 10-Aug-2009 17:32 [facility] Office Visit On: 03-Aug-2009 13:10 Encounter Reason: Preoperative evaluation - The patient feels well with minor complaints and has decreased energy level. Surgical procedures include: other (gastric bypass surgery ). Date of procedure: (08-19-09 Dr. Charlton End: 03-Aug-2009 13:38 ta). There have been no problems with general anesthesia or blood/blood products. Prosthetics include: dentures (upper ) and eye glasses. Encounter Diagnosis: Pre-operative examination, unspecified (V72.84), Cardiomyopathies (425.4), Type II Diabetes,controlled (250.00), CVA (437.9), Allergic rhinitis (477.9) [facility] Historical Summary On: 29-Jul-2009 11:33 [facility] End: 29-Jul-2009 11:40 Office Visit On: 09-Jul-2009 11:42 Encounter Reason: Follow up for chronic medical issues - The patient feels well with minor complaints ,has decreased energy level and is sleeping well. Patient has been compliant with instructions. Current medication use End: 09-Jul-2009 12:12 : no side effects ,compliant with dosing regimen and considered effective by patient. Patient sleeps 8 hours per night. Impact of disease: emotional impact-mild. Nutrition: balanced diet and supplementa l vitamins. The medical issues the patient is following up for include asthma ,blood sugar issues ,cardiac issues ,gastric reflux ,high blood pressure ,high cholesterol ,hypothyroid and other (morbid ob esity, CVA, CHF, SHYLA, hypokalemia, elevated lft's ). Encounter Diagnosis: Type II Diabetes,uncontrolled (250.02), Depression (311.), Hypercholesterolemia (272.0), SOB (786.05), Sinusitis,chronic (473.9), CVA (437.9), Obstructive sleep apnea (327.23) , Unspecified visual disturbance (368.9), Hypokalemia (276.8), Hypercalcemia(275.42), Abnormal TSH (794.5), Elevated LFT (790.6), Morbid obesity (278.01), Cardiomyopathies (425.4), arthritis,unspecified (716.90), Atrial fibrillation (427.31), GERD (530.81), Headache (784.0), Allergic Rhinitis(477.9), Backache, unspecified (724.5), Glucose Intolerant (271.3), Hypertension 401.1 (Renamed from Hypertension (401.0)), Other atopic dermatitis and related conditions (691.8), Heart disease, unspecified (429.9), Congestive Heart Failure (428.0), Osteopenia (733.90) [facility] Phone Encounter On: 16-Jun-2009 16:39 [facility] End: 16-Jun-2009 16:40 Office Visit On: 27-Apr-2009 14:52 Encounter Reason: Well Women Exam - The patient feels well with minor complaints and has decreased energy level. Pap smear: date of last pap: (2006). Contraceptive history: The patient is not using any method of contrace End: 27-Apr-2009 15:09 ption at this time. Patient does not exercise. The patient's libido is absent. The patient reports that she does not perform monthly breast self exam. Calcium intake includes 1200 mg with Vit D daily scott pplement and 1 serving milk daily. Note for Well Women Exam: post menopausal Encounter Diagnosis: Well Woman Exam (V72.31) (Pap,Mammo,Routine Female) (Renamed from Well Woman V72.31 (p,m)) [facility] Office Visit On: 03-Apr-2009 10:17 Encounter Reason: Follow up for chronic medical issues - The patient feels well with minor complaints and has decreased energy level. Patient has been compliant with instructions. Current medication use: no side effects End: 03-Apr-2009 10:40 ,compliant with dosing regimen and considered effective by patient. Patient sleeps 8 hours per night. Impact of disease: emotional impact-mild. Nutrition: balanced diet and supplemental vitamins. The in dical issues the patient is following up for include blood sugar issues ,cardiac issues ,depression ,gastric reflux ,high blood pressure ,high cholesterol ,hypothyroid and other (morbid obesity, arthiri tis, hyperhydrosis, obstructive sleep apnea, CVA ). Encounter Diagnosis: Type II Diabetes,uncontrolled (250.02), Sinusitis,chronic (473.9), Depression (311.), SOB (786.05), Hypercholesterolemia (272.0), Hypertension 401.1 (Renamed from Hypertension (401.0)), CVA (437.9), Congestive Heart Failure (428.0), Obstructive sleep apnea (327.23), Heart disease, unspecified (429.9), Unspecified visual disturbance (368.9), GERD (530.81), Atrial fibrillation (427.31), arthritis,unspecified (716.90), Cardiomyopathies (425.4), Morbid obesity (278.01), Elevated LFT (790.6), Abnormal TSH (794.5), Hypercalcemia(275.42), Hypokalemia (276.8), Other atopic dermatitis and related conditions (691.8) [facility] Phone Encounter On: 12-Jan-2009 12:58 [facility] End: 12-Jan-2009 13:00 Office Visit On: 30-Dec-2008 10:33 Encounter Reason: Follow up for chronic medical issues - The patient feels well with minor complaints ,has decreased energy level and is sleeping well. Patient has been compliant with instructions. Current medication use End: 30-Dec-2008 11:04 : no side effects ,compliant with dosing regimen and considered effective by patient. Patient sleeps 7 hours per night. Impact of disease: emotional impact-moderate. Nutrition: balanced diet and supplem ental vitamins. The medical issues the patient is following up for include blood sugar issues ,cardiac issues ,depression ,high blood pressure ,high cholesterol and other (obesity, obstructive sleep apnea, arthiritis ). Encounter Diagnosis: Type II Diabetes,uncontrolled (250.02), arthritis,unspecified (716.90), Elevated LFT (790.6), Glucose Intolerant (271.3), SOB (786.05), Allergic Rhinitis(477.9), Hypercholesterolemia (272.0), CVA (437.9), Cardiomyopathies (425.4), Hypertension (401.0), Morbid obesity (278.01), Abnormal TSH (794.5), Atrial fibrillation (427.31), Depression (311.), GERD (530.81), Hypokalemia (276.8), Hypercalcemia(275.42), Unspecified visual disturbance (368.9), Sinusitis,chronic (473.9), Heart disease, unspecified (429.9), Headache (784.0), COPD WITH (ACUTE) EXACERBATION (491.21), Backache, unspecified (724.5), Obstructive sleep apnea (327.23), Congestive Heart Failure (428.0), Rash (782.1), Allergic rhinitis (477.9), Sleep disorder (780.50), Other atopic dermatitis and related conditions (691.8) [facility] Phone Encounter On: 25-Dec-2008 8:53 [facility] End: 25-Dec-2008 8:55 Office Visit On: 01-Dec-2008 13:29 Encounter Reason: Follow up acute care visit - The patient feeling better since last seen (Pt said she feels like her ears and sinuses are full but the wheezing is less.). Patient has been compliant with instructions. Cu End: 01-Dec-2008 13:44 rrent medication use: no side effects and compliant with dosing regimen. Patient sleeps 8 hours per night. Impact of disease: no overall impact. Nutrition: balanced diet and supplemental vitamins. The m edical issues the patient is following up for include All identified problems below ,blood sugar issues ,depression ,high blood pressure and URI. Encounter Diagnosis: COPD WITH (ACUTE) EXACERBATION (491.21), Allergic Rhinitis(477.9) [facility] Office Visit On: 21-Nov-2008 14:54 Encounter Reason: Cough - The onset of the cough has been acute. The cough is characterized as productive of mucoid sputum. The amount of sputum produced is less than a half a cup per day. The cough occurs all the time. End: 21-Nov-2008 15:19 The symptoms have been associated with dyspnea ,headache ,hoarseness ,runny nose and wheezing. the color of the sputum is yellowish. Encounter Diagnosis: COPD WITH (ACUTE) EXACERBATION (491.21) [facility] Office Visit On: 29-Sep-2008 10:12 Encounter Reason: Follow up for chronic medical issues - The patient feels well with minor complaints and has decreased energy level. Patient has been compliant with instructions. Current medication use: no side effects End: 29-Sep-2008 10:36 and compliant with dosing regimen. Patient sleeps 7 hours per night. Impact of disease: emotional impact-moderate. Nutrition: balanced diet and supplemental vitamins. The medical issues the patient is f ollowing up for include blood sugar issues ,cardiac issues ,depression ,gastric reflux ,high blood pressure ,high cholesterol and other (morbid obesity, obstructive sleep apnea, CHF, CVA, arthiritis, abnormal TSH ). Encounter Diagnosis: Type II Diabetes,uncontrolled (250.02), Heart disease, unspecified (429.9), SOB (786.05), GERD (530.81), Glucose Intolerant (271.3), Hypertension 401.1 (Renamed from Hypertension (401.0)), CVA (437.9), Abnormal TSH (794.5), Rash (782.1), Atrial fibrillation (427.31), Backache, unspecified (724.5), Unspecified visual disturbance (368.9), Headache (784.0), Allergic Rhinitis(477.9), Other atopic dermatitis and related conditions (691.8), Congestive Heart Failure (428.0), Hypercholesterolemia (272.0), Obstructive sleep apnea (327.23), Allergic rhinitis (477.9), arthritis,unspecified (716.90), Cardiomyopathies (425.4), Sinusitis,chronic (473.9), Depression (311.), Sleep disorder (780.50), Morbid obesity (278.01), Elevated LFT (790.6) [facility] Office Visit On: 30-Jun-2008 10:31 Encounter Reason: Follow up for chronic medical issues - The patient feels well with minor complaints ,has decreased energy level and is sleeping poorly. Patient has been compliant with instructions. Current medication u End: 30-Jun-2008 17:22 se: no side effects ,compliant with dosing regimen and considered effective by patient. Patient sleeps 5 hours per night. Impact of disease: emotional impact-moderate. Nutrition: balanced diet. The medi janae issues the patient is following up for include blood sugar issues ,cardiac issues ,depression ,gastric reflux ,high blood pressure ,high cholesterol and other (morbid obesity, sleep apnea ). Encounter Diagnosis: Type II Diabetes,uncontrolled (250.02), Depression (311.), GERD (530.81), Heart disease, unspecified (429.9), SOB (786.05), Hypercholesterolemia (272.0), Congestive Heart Failure (428.0), Other atopic dermatitis and related conditions (691.8), Allergic Rhinitis(477.9), Headache (784.0), Unspecified visual disturbance (368.9), Backache, unspecified (724.5), Atrial fibrillation (427.31), Sinusitis,chronic (473.9), Cardiomyopathies (425.4), arthritis,unspecified (716.90), Allergic rhinitis (477.9), Obstructive sleep apnea (327.23), Glucose Intolerant (271.3), Hypertension 401.1 (Renamed from Hypertension (401.0)), CVA (437.9), Abnormal TSH (794.5), Elevated LFT (790.6), Rash (782.1), Morbid obesity (278.01), Sleep disorder (780.50), Need for prophylactic vaccination and inoculation against influenza (V04.81) [facility] Office Visit On: 27-Mar-2008 10:35 Encounter Reason: Follow up for chronic medical issues - The patient feels well with minor complaints ,has decreased energy level and is sleeping poorly. Patient has been compliant with instructions. Current medication u End: 27-Mar-2008 11:48 se: no side effects ,compliant with dosing regimen and considered effective by patient. Patient sleeps 6 hours per night. Impact of disease: emotional impact-mild. Nutrition: balanced diet and supplemen poli vitamins. The medical issues the patient is following up for include blood sugar issues ,cardiac issues ,depression ,gastric reflux ,high blood pressure ,high cholesterol and other (morbid obesity, insomnia ). Encounter Diagnosis: Heart disease, unspecified (429.9), SOB (786.05), Type II Diabetes,uncontrolled (250.02), GERD (530.81), Depression (311.), Hypercholesterolemia (272.0), Allergic Rhinitis(477.9), Abnormal TSH (794.5), Headache (784.0), CVA (437.9), Unspecified visual disturbance (368.9), Hypertension 401.1 (Renamed from Hypertension (401.0)), Glucose Intolerant (271.3), Obstructive sleep apnea (327.23), Allergic rhinitis (477.9), arthritis,unspecified (716.90), Cardiomyopathies (425.4), Sinusitis,chronic (473.9), Atrial fibrillation (427.31), Backache, unspecified (724.5), Morbid obesity (278.01), Congestive Heart Failure (428.0), Rash (782.1), Other atopic dermatitis and related conditions (691.8), Elevated LFT (790.6) [facility] Office Visit On: 20-Dec-2007 11:49 Encounter Reason: Follow up for chronic medical issues - The patient feels well with minor complaints ,has decreased energy level and is sleeping well. Patient has been compliant with instructions. Current medication use End: 20-Dec-2007 12:21 : no side effects ,compliant with dosing regimen and considered effective by patient. Patient sleeps 7 hours per night. Impact of disease: emotional impact-mild. Nutrition: balanced diet. The medical is sues the patient is following up for include blood sugar issues ,cardiac issues ,depression ,gastric reflux ,high blood pressure ,high cholesterol ,hypothyroid and other (obesity, sleep apnea, morbid obesity ). Encounter Diagnosis: Type II Diabetes,uncontrolled (250.02), Hypertension 401.1 (Renamed from Hypertension (401.0)), Backache, unspecified (724.5), GERD (530.81), Depression (311.), Hypercholesterolemia (272.0), Glucose Intolerant (271.3), Heart disease, unspecified (429.9), Allergic Rhinitis(477.9), Other atopic dermatitis and related conditions (691.8), Abnormal TSH (794.5), Congestive Heart Failure (428.0), Headache (784.0), Morbid obesity (278.01), CVA (437.9), Atrial fibrillation (427.31), Unspecified visual disturbance (368.9), Sinusitis,chronic (473.9), Cardiomyopathies (425.4), arthritis,unspecified (716.90), SOB (786.05), Allergic rhinitis (477.9), Obstructive sleep apnea (327.23), Rash (782.1) [facility] Office Visit On: 20-Sep-2007 11:30 Encounter Reason: Follow up for chronic medical issues - The patient feels well with minor complaints ,has decreased energy level and is sleeping well. Patient has been compliant with instructions. Current medication use End: 20-Sep-2007 11:58 : no side effects ,compliant with dosing regimen and considered effective by patient. Patient sleeps 8 hours per night. Impact of disease: emotional impact-mild. Nutrition: balanced diet. The medical is sues the patient is following up for include blood sugar issues ,cardiac issues ,depression ,high blood pressure ,high cholesterol and other (obesity ). , [ADDITIONAL REASON] Shortness of breath - The onset of the shortness of breath has been gradual and has been occurring in a persistent pattern for 3 years. The course has been increasing (in last 2-3 w eeks). The shortness of breath is moderate to severe (have to sit down rest). The shortness of breath occurs on exertion. The symptoms have been associated with swelling of feet, while the symptoms have not been associated with anxiety ,chest pain ,coughing ,palpitations or paroxysmal nocturnal dyspnea. Note for Shortness of breath: little swelling--seeing offoir and he working up now Encounter Diagnosis: Glucose Intolerant (271.3), Hypertension (401.0), arthritis,unspecified (716.90), Congestive Heart Failure (428.0), Cardiomyopathies (425.4), Backache, unspecified (724.5), Headache (784.0), Sinusitis,chronic (473.9), Unspecified visual disturbance (368.9), Hypercholesterolemia (272.0), Atrial fibrillation (427.31), CVA (437.9), Morbid obesity (278.01), Type II Diabetes,uncontrolled (250.02), Depression (311.), GERD (530.81), Heart disease, unspecified (429.9), Allergic Rhinitis(477.9), Obstructive sleep apnea (327.23), Other atopic dermatitis and related conditions (691.8), Allergic rhinitis (477.9), Unspecified Diagnosis, SOB (786.05), Abnormal TSH (794.5) [facility] Phone Encounter On: 30-Jul-2007 12:06 [facility] End: 30-Jul-2007 12:07 Office Visit On: 19-Jun-2007 11:42 Encounter Reason: Follow up for chronic medical issues - The patient feels well with minor complaints ,has decreased energy level and is sleeping well. Patient has been compliant with instructions. Current medication use End: 19-Jun-2007 12:19 : experiencing side effects (?crestor back and legs have been aching ) and compliant with dosing regimen. Patient sleeps 7 hours per night. Impact of disease: emotional impact-mild. Nutrition: balanced diet. The medical issues the patient is following up for include blood sugar issues ,cardiac issues ,depression ,gastric reflux ,high blood pressure ,high cholesterol and other (obesity ). fasting blood sugars : (81-137). Note for Follow up for chronic medical issues: sugars are good but vomit in 8-07, gain all weight back, jen valencia Lucycountjose Diagnosis: GERD (530.81), Depression (311.), Type II Diabetes,uncontrolled (250.02), Morbid obesity (278.01), CVA (437.9), Atrial fibrillation (427.31), Hypercholesterolemia (272.0), Hypertension (401.0), Congestive Heart Failure (428.0), arthritis,unspecified (716.90), Cardiomyopathies (425.4) [facility] Office Visit On: 13-Mar-2007 13:16 Encounter Reason: Follow up for diabetes/glucose intolerance - The patient feels well with minor complaints ,has decreased energy level and is sleeping well. Patient has been compliant with instructions. Current medicati End: 13-Mar-2007 13:40 on use: Byetta injections:. Nutrition: balanced diet. Note for Follow up for diabetes/glucose intolerance: not snakc as much more full, not glucometer to check sugarEncounter Diagnosis: Type II Diabetes,uncontrolled (250.02), Morbid obesity (278.01) [facility] Office Visit On: 01-Mar-2007 10:30 Encounter Reason: Follow up for chronic medical issues - The patient feels well with minor complaints ,has decreased energy level and is sleeping well. Patient has been compliant with instructions. Current medication use End: 01-Mar-2007 11:02 : no side effects ,compliant with dosing regimen and considered effective by patient. Patient sleeps 8 hours per night. Impact of disease: emotional impact-mild. Nutrition: balanced diet and supplementa l vitamins. The medical issues the patient is following up for include blood sugar issues ,cardiac issues ,depression ,gastric reflux ,high blood pressure ,high cholesterol and osteoarthritis. Encounter Diagnosis: Glucose Intolerant (271.3), GERD (530.81), Hypercholesterolemia (272.0), Other atopic dermatitis and related conditions (691.8), Atrial fibrillation (427.31), Allergic rhinitis (477.9), Congestive Heart Failure (428.0), Depression (311.), arthritis,unspecified (716.90), Allergic Rhinitis(477.9), Heart disease, unspecified (429.9), Obstructive sleep apnea (327.23), CVA (437.9), Morbid obesity (278.01), Unspecified visual disturbance (368.9), Headache (784.0), Sinusitis,chronic (473.9), Backache, unspecified (724.5) , Cardiomyopathies (425.4), Hypertension (401.0), Type II Diabetes,uncontrolled (250.02) [facility] Office Visit On: 27-Nov-2006 9:34 Encounter Reason: Follow up for chronic medical issues - The patient feels well with minor complaints ,has decreased energy level and is sleeping poorly. Patient has been compliant with instructions. Current medication u End: 27-Nov-2006 10:17 se: no side effects ,compliant with dosing regimen and considered effective by patient. Patient sleeps 5 hours per night. Impact of disease: emotional impact-mild. Nutrition: balanced diet and supplemen poli vitamins. The medical issues the patient is following up for include blood sugar issues ,cardiac issues ,COPD ,depression ,gastric reflux ,high blood pressure and other (sleep apnea, arthiritis ). Encounter Diagnosis: Glucose Intolerant (271.3), arthritis,unspecified (716.90), Backache, unspecified (724.5), Allergic Rhinitis(477.9), Sinusitis,chronic (473.9), Heart disease, unspecified (429.9), Headache (784.0), Unspecified visual disturbance (368.9), Morbid obesity (278.01), CVA (437.9), Obstructive sleep apnea (327.23), Hypercholesterolemia (272.0), Other atopic dermatitis and related conditions (691.8), Allergic rhinitis (477.9), Atrial fibrillation (427.31), Congestive Heart Failure (428.0), Hypertension (401.0), Depression (311.), Cardiomyopathies (425.4) [facility] Historical Summary On: 22-Nov-2006 13:28 [facility] End: 22-Nov-2006 13:38 Historical Summary On: 13-Sep-2006 17:19 [facility] End: 13-Sep-2006 17:20 Office Visit On: 06-Sep-2006 9:37 Encounter Reason: Follow up for chronic medical issues - The patient feels well with no complaints ,has decreased energy level and is sleeping poorly. Patient has been compliant with instructions. Current medication use: End: 06-Sep-2006 10:39 no side effects ,compliant with dosing regimen and considered effective by patient. Patient sleeps 6 hours per night. Impact of disease: no overall impact. Nutrition: balanced diet. The medical issues the patient is following up for include depression ,high blood pressure ,high cholesterol and other (DM). Note for Follow up for chronic medical issues: infection better, fartun open some, healed, [ADDITIONAL REASON] Follow up, Laboratory Test Results - Date: (08-16). There is a family history of cardiovascular disease (brother) and myocardial infarction before age 55 (mother, uncles). Encounter Diagnosis: Unspecified Diagnosis, Cellulitis (682.9), Depression (311.), Morbid obesity (278.01), Hypertension (401.0), CVA (437.9), Congestive Heart Failure (428.0), Obstructive sleep apnea (327.23), Atrial fibrillation (427.31), Hypercholesterolemia (272.0), Glucose Intolerant (271.3), Allergic rhinitis (477.9), Other atopic dermatitis and related conditions (691.8) [facility] Office Visit On: 25-Aug-2006 11:28 Encounter Diagnosis: Cellulitis (682.9) End: 27-Aug-2006 21:28 [facility] Office Visit On: 24-Aug-2006 11:36 Encounter Diagnosis: Cellulitis (682.9) End: 24-Aug-2006 11:38 [facility] Office Visit On: 23-Aug-2006 9:58 Encounter Diagnosis: Cellulitis (682.9) End: 24-Aug-2006 11:36 [facility] Office Visit On: 22-Aug-2006 11:13 Encounter Reason: Follow up for chronic medical issues - The patient feels well with minor complaints ,has decreased energy level and is sleeping poorly. Patient has been compliant with instructions. Current medication u End: 22-Aug-2006 14:35 se: no side effects. Patient sleeps 6 hours per night. Impact of disease: no overall impact. Nutrition: inappropriate diet. The medical issues the patient is following up for include All identified prob lems below ,blood sugar issues ,high blood pressure ,high cholesterol and other (SHYLA, Afib, CHF,CVA). Note for Follow up for chronic medical issues: pt came for this but had other acute problem need to deal with so hold off on this, [ADDITIONAL REASON] Allergic rhinitis - The onset of the allergic rhinitis has been acute and has been occurring for months. The course has been worsening. nothing. The allergic rhinitis are relieved b y antihistamines (tries Zyrtec and no improvemnet). Associated features include The symptoms have been associated with itchy eyes ,red eyes ,clear nasal drainage and itchy nose. Medications have included antihistamines. , [ADDITIONAL REASON] Breast problems - The onset of the breast problems has been gradual (had bx in june and now red and drainage) and they have been occurring in a persistent pattern for weeks. The course has been constant. Note for Breast problems: fever last aug none now, now draining Encounter Diagnosis: Depression (311.), abnl mammo and ultrasound- send to [facility] for surgical opinion- pt agreeable, Cellulitis (682.9), Allergic rhinitis (477.9), Morbid obesity (278.01) [facility] Office Visit On: 31-May-2006 11:04 Encounter Reason: Follow up tests - Diagnostic tests include ultrasound (rt breast). Date: (05/16/06, in EMR). Note for Follow up tests: and mammogram, End: 31-May-2006 11:47 [ADDITIONAL REASON] Rash - The onset of the rash has been gradual and has been occurring in a persistent pattern for 3 months. The course has been increasing. The rash is characterized as red ,crusty , weeping and flat. The rash was first seen on the lower extremity (rt inner ankle). There has been associated itching. 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
--- OUTSIDE RECORDS SUMMARY | 2018-11-30 15:40 | XMS RPT_ITS | Continuity of Care Document ---
:1950 Author Organization [facility] Address [address] [facility] [address] [place] [address] Phone Care Team Providers Name Role Phone Viji CHANDRA, Nic Gutierres Unavailable Carlos Woodruff Unavailable Paras CAHNDRA, Lesa Gutierres Unavailable Cleartontali Unavailable Chacha Serna Unavailable Dr. Chato Jean Baptiste Unavailable HEAVEN Tran Unavailable Unavailable Unavailable Unavailable Problems Name Dates Details Abnormal bone xray (R93.7, 793.7) Status: Active Abnormal laboratory test (R89.9, 796.4) Status: Active Abnormal radionuclide bone scan (R94.8, 794.9) Status: Active Abortions/Miscarriages Comments: 2 Status: Active [...] driness use flonase only Status: Active BMI 37.0-37.9, adult (Z68.37, V85.37) Status: Active BMI 38.0-38.9,adult (Z68.38, V85.38) Status: Active Calcific tendinitis of right shoulder (M75.31, 726.11) Status: Active Cancer of thyroid (C73, 193) Comments: due for recheck 09-[address] mary arias. WBS. thyrogen stimulated scan and tbs level -17.see once yearlyRAI 3-15, 4-14 thyrogen scan still residual, 1-16 stable Status: Active Carotid stenosis (I65.29, 433.10) Comments: 1-12 <50%, 12-13, 12-16 Status: Active Congestive heart failure (I50.9, 428.0) Comments: stable now told to weigh daily. knows if gain 4 pounds in a week call. Status: Active Controlled diabetes mellitus type II without complication (E11.9, 250.00) Comments: hga1c good.opthal exam 08-26 good see cardio for ekg Status: Active Deliveries (Parity) Comments: 3 Status: Active Depression (F32.9, 311) Comments: start with stroke, had issue with son on herion doing well. good on celexa with weight and arthymia backed to 20 mg and did well so will try 10 mg Status: Active Encounter for general adult medical examination with abnormal findings (Z00.01, V70.0) Comments: 08-09-16 [facility] Physical: colonoscopy 06-26,mammo 916 BD , pap , immunizations are up to date, last eye exam was with Dr. Serna and included glaucoma screening Status: Active Encounter for hepatitis C virus screening test for high risk patient (Z11.59, V73.89) Status: Active GERD (gastroesophageal reflux disease) (K21.9, [...] LDL 120 but breakdwon good. fax to tabby. brooklynn ames kristal at thispoint hold offstatin couple ones and pain in knees Status: Active Hypertension (I10, 401.9) Comments: stable Status: Active Hypothyroidism (E03.9, 244.9) Comments: Dr. soto adjust Status: Active Long-term (current) use of anticoagulants (Renamed from jewel hole rough opener current use of anticoagulant therapy) (Z79.01, V58.61) Status: Active Low zinc level (E60, 269.3) Status: Active Memory loss (R41.3, 780.93) Comments: notice some more forgetful no trouble writin gout checks. not good at direction not get lost. forget what go into room for. can follow recipes okay. sometimes forget conversations had day before. forgot how to get to gnosticism ? [facility] Status: Active Nonsmoker (Z78.9, V49.89) [...] in hips at femoral neck osteoporosis. worsening. been on fosamax not working.. was doing prolia. now insurance wont cover. patient insurance approved reclast, had at [facility] not had this year will set up Status: Active Other intervertebral disc degeneration, lumbar [...] ef Dr. estes stress test and cath 11-14. 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 Status: Active Medications Name Dates Details Calcitriol 0.25 MCG Oral Capsule 1 (one) Capsule bid for 0 days Quantity: 30 {Capsule} Refills: 0 Ordered:19-Mar-2018 Nic Hallman MD, MD, Dana M Start : 19-Mar-2018 Active Calcium 600 600 MG Oral Tablet 2 (two) Tablet daily for 0 days Quantity: 90 {Tablet} Refills: 0 Ordered:19-Mar-2018 Nic Hallman MD, MD, Dana M Start : 19-Mar-2018 Active CeleXA 10 MG Oral Tablet 1 tab Tablet qd for 0 days Quantity: 90 {Tablet} Refills: 3 Ordered:19-Mar-2018 Nic Hallman MD, MD, Dana M Start : 19-Mar-2018 Active CENTRUM SILVER (Oral Tablet) 1 Tablet bid for 0 days Quantity: 60 {Tablet} Refills: 0 Ordered:17-Jun-2013 Nic Hallman MD, MD, Dana M Start : 17-Jun-2013 Active Eliquis 5 MG Oral Tablet 1 (one) Tablet qd for 0 days Quantity: 30 {Tablet} Refills: 0 Ordered:19-Mar-2018 Nic Hallman MD, MD, Dana M Start : 19-Mar-2018 Active Ergocalciferol 74423 UNIT Oral Capsule 1 Capsule q weekly for 0 days Quantity: 12 {Capsule} Refills: 3 Ordered:19-Mar-2018 Nic Hallman MD, MD, Dana M Start : [...] days Quantity: 90 {Tablet} Refills: 3 Ordered:14-Aug-2017 Nic Hallman MD, MD, Dana M Start : 14-Aug-2017 Active Levothyroxine Sodium 125 MCG Oral Tablet 1 (one) Tablet qd for 0 days Quantity: 30 {Tablet} Refills: 0 Ordered:02-Jan-2017 Nic Hallman MD, MD, Dana M Start : 02-Jan-2017 Active Lisinopril 20 MG Oral Tablet 1 Tablet qd for 0 days Quantity: 90 {Tablet} Refills: 3 Ordered:25-Dec-2017 Nic Hallman MD, MD, Dana M Start : 25-Dec-2017 Active METOPROLOL SUCCINATE ER, 50MG (Oral Tablet Extended Release 24 Hour) 1 qd (50 MG) Active ONETOUCH TEST (In Vitro Strip) 1 Strip tid as directed for 0 days Quantity: 100 {Strip} Refills: 6 Ordered:18-Sep-2013 Nic Hallman MD, MD, Dana M Start : 17-Jun-2013 Active Comments:DX: 250.00, patient uses ONETOUCH ULTRA RECLAST, 5MG/100ML (Intravenous Solution) uad Solution 5mg IV q yearly for 0 days Quantity: 100 {Milliliter} Refills: 0 Ordered:04-Jan-2016 Viji CHANDRA, Nic Oconnor MD, Nic Gutierres Start : 04-Jan-2016 Active Zinc Aspartate 40 MG Oral Tablet 1 (one) Tablet Tablet in am for 0 days Quantity: 30 {Tablet} Refills: 5 Ordered:08-May-2017 HEAVEN Tran Start : 03-Jan-2017 Active ACTION STRIPS (Miscellaneous) [...] days Quantity: 28 {Tablet} Refills: 0 Ordered:12-Oct-2011 Jailyn Connor CNP Start : 12-Oct-2011 End : 26-Oct-2011 Inactive [...] 14 {Tablet} Refills: 0 Ordered:08-Apr-2011 Viji CHANDRA, Nic Oconnor MD, Nic Gutierres Start : 08-Apr-2011 End : 22-Apr-2011 [...] days Quantity: 1 {Aerosol_Soln} Refills: 0 Ordered:14-Nov-2011 Yvonne Webb LPN Start : 08-Apr-2011 End : 14-Nov-2011 Inactive [...] : 19-Dec-2011 End : 23-Nov-2017 Inactive Comments:Dr. Mcnair ZETIA, 10MG (Oral Tablet) 1 (one) Tablet Tablet qd for 0 days Quantity: 30 {Tablet} Refills: 5 Ordered:04-Jan-2016 HEAVEN Tran Start : 28-Oct-2014 End : 04-Jan-2016 Inactive ALENDRONATE SODIUM, 35MG (Oral Tablet) 1 (one) Tablet weekly for 90 days Quantity: 12 {Tablet} Refills: 3 Ordered:25-Mar-2014 Viji CHANDRA, Nic Oconnor MD, Nic Gutierres Start : 25-Mar-2014 End : 25-Mar-2014 [...] QD for 0 days Refills: 0 Ordered:03-Aug-2009 Nic Hallman MD, MD, Dana M Start : [...] Tablet) for 0 days Refills: 0 Ordered:03-Apr-2009 Nic Hallman MD, MD, Dana M End : 20-Dec-2007 Discontinued MULTIVITAMIN (Oral Liquid) for 0 days Refills: 0 Ordered:01-Dec-2008 Cari Ott End : 20-Dec-2007 Discontinued NEXIUM, 40MG (Oral Capsule Delayed Release) [address] Daily for 0 days Refills: 0 Ordered:26-Aug-2009 Nic Hallman MD, MD, Dana M Start : 26-Aug-2009 End : 26-Aug-2009 Discontinued NIASPAN, 500MG (Oral Tablet Extended Release) 2 (two) Tablet ER qhs for 0 days Quantity: 180 {Tablet} Refills: 3 Ordered:01-Aug-2014 Nic Hallman MD, MD, Dana M Start : 01-Aug-2014 End : 01-Aug-2014 Discontinued PREVACID, 30MG (Oral Capsule Delayed Release) [address] qd for 0 days Quantity: 90 {Capsule_DR} Refills: 3 Ordered:06-Sep-2006 Cari Ott Start : 06-Sep-2006 End : 13-Sep-2006 Discontinued ROCEPHIN, 2GM (Intravenous Solution Reconstituted) For Solution for 0 days Refills: 0 Ordered:25-Aug-2006 Cari Ott Start : 25-Aug-2006 End : 19-Jun-2007 Discontinued Comments:lot # [id number] Exp 2-08 SIMVASTATIN, 80MG (Oral Tablet) Tablet QD for 0 days Refills: 0 Ordered:30-Dec-2008 Nic Hallman MD, MD, Dana M Start : 29-Sep-2008 End : 30-Dec-2008 Discontinued VYTORIN, 10-40MG (Oral Tablet) 1 (one) Tablet QD for 0 days Quantity: 90 {Tablet} Refills: 3 Ordered:29-Sep-2008 Cari Ott Start : 29-Sep-2008 End : 29-Sep-2008 Discontinued [...] neg Status: Inactive as of 22-Aug-2006 Abnormal TSH (R79.89, 794.5) Comments: stable had seen . run 0.26-.30 so will follow. not had [...] Comments: 36.45 Status: Resolved as of 19-Mar-2018 Breast cancer screening (Z12.39, V76.10) Status: Inactive [...] Comments: continue ATB Status: Resolved as of 06-Sep-2006 Cerebrovascular disease, unspecified (I67.9, 437.9) Status: Inactive as of 15-Mar-2013 Cough (R05, 786.2) Status: Inactive as of 22-Nov-2012 Elevated LFTs (R94.5, 790.6) Status: Inactive as of 17-Jun-2013 Encounter for gynecological examination without abnormal finding (Z01.419, V72.31) Comments: 06-26 colonscopy Status: Resolved as of 19-Mar-2018 Eustachian tube dysfunction (H69.80, 381.81) Status: Inactive [...] for Tdap vaccination (Renamed from Need for jyijvvwyka-pbyiajl-muifoksum (Tdap) vaccine, adult/adolescent) (Z23, V06.1) Status: Inactive [...] patient recent tests and she has litle owgeovannie but about same prolia not covered. continue [...] (Z23, V06.6) Status: Resolved as of 19-Mar-2018 Pre-operative examination (Z01.818, V72.84) Comments: pt at [...] 1960 Section Completed Comments: 3 D&C Completed Thyroidectomy; Total Completed Comments: Dr. Crain 09-30-2014 Multi focal papillary thyroid cancer referred to endocrinologistDr. 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 Negron Tubal Ligation Completed Date Value Details 17-May-2018 Dexa Bone Density Study Result: Comments: See Note; NOTES: [facility] Imaging Services [address] [place] [address] Dexa Bone Density Study MR#: [id number] Acct: [id number] Name: LILIANEJODI L Rep #: [id number] : 1950 F 68 From: Aaron Shrestha MD PCP: Nic Hallman MD Status: REG CLI Study: Dexa Bone Density Study Date of Exam: 05/17/18 Exam# [id number] Ordering Dr: Ayde Rodriguez DO STUDY: DUAL [...] Aaron stewart MD at 11:21 EDT Tel [phone], Service support , CC: Nic Hallman MD; Ayde Rodriguez DO Can Dragger: Signed 17-May-2018 SCREENING MAMM (CAD), BILAT Result: Comments: See Note; NOTES: [facility] Imaging Services [address] [place] [address] SCREENING MAMM (CAD), BILAT MR#: [id number] Acct: [id number] Name: JODI MOMIN Rep # : [id number] : 1950 F 68 From: Aaron Shrestha MD PCP: Nic Hallman MD Status: REG CLI Study: SCREENING MAMM (CAD), BILAT Date of Exam: 05/17/18 Exam# [id number] Ordering Dr: Ayde Rodriguez DO MAMMOGRAPHY - [...] delay biopsy of a clinically suspicious abnormality. [id number] Electronically Signed: Aaron Shrestha MD at 15:36 EDT Tel [phone], BlockSpring ce support , CC: Nic Hallman MD; Ayde Rodriguez DO Can Dragger: Signed 25-Apr-2018 Cardiology Visit Report Result: Comments: See Note; NOTES: [facility] [address] [place] [address] OFFICE VISIT Date of Service: 04/24/18 MR#: [id number] Acct: [id number] Name: JODI MOMIN Rep #: [id number] : 1950 Provider: RIVER Mendoza Age/Sex: 68/F [place] [facility] [place]: Signed HPI HPI Details: JODI MOMIN, is a 68 F who presents to the office today for a cardia vas cular outpatient follow-up. She has a history of atrial fibrillation status post ablation at [facility] in 2005, atrial septal defect, and CVA [...] achial Intake Visit Reasons: overdue for OV Aquatics Director Required: No Accompanied by: Is patient in [...] Ejectio n fraction %: 50 to 54 PFS Medical History Ostium secundum atrial septal defect (Chronic) History of stroke (Chronic) Obesity (Resolved) Hyperlipidemia (Chronic) snf current use of anticoagulan t (Chronic) Atrial [...] not keep diary. 24 hour Holter mon itor from February 2015 showed atrial fibrillation, average [...] - SAI Medel Her Holter monitor in 2016 showed atrial fibrillation with an average heart rate of 79 bpm. Her heart rate remains well controlled today. She will conrado nue metoprolol and Eliquis. We will continue to monitor. 2. Dyspnea on exertion R06.09 SAI Madera Patient does continue to have dyspnea on exertion. This has not worsened and tends to rec over quickly. At this time we will continue to monitor. 3. snf current use of anticoagulant Z79.01 Adriel - SAI Medel She will continue with factor Xa inhibitor. Plan Detail Additional Com ments - SAI Medel Discussed the above patient with Dr. Mcnair, he agrees with the plan of care. Thank you for allowing us to participate in the patients plan of care, if you have any questions p yvonnebetzy do not hesitate to call. This note was generated using a voice recognition system and there may be incorrect words, spelling or punctuation that were not noted when reviewing the office note prio r to juanis. Follow Up 6 Months (INSPECTOR SCREEN PRINTING) Coding Level of Care Code Off vis,est,level 3 Diagnoses Persistent atrial fibrillation I48.1 Atrial fibrillation type: persistent Dyspnea on exertion R06.09 jewel hole rough opener current use of anticoagulant Z79.01 Coding Level of Care Code Off vis,est,level 3 Diagnoses Persistent atrial fibrillation I48.1 Atrial fibrillation type: persistent Dyspnea on exertion R06.09 snf current use of anticoagulant Z79.01 04/25/18 0815 <Electronically signed by Geraldo Mendoza NP-C> Date Geraldo Mendoza AVIAN KEEPER-C 04/25 1145<Electronically signed by Yosi Mcnair MD> Cosigner Signature: Date (if applicable) Yosi Mcnair MD CC: Nic Hallman MD 10-Oct-2017 Cardiology Visit Report Result: Comments: See Note; NOTES: [facility] [address] [place] [address] OFFICE VISIT Date of Service: 10/10/17 MR#: [id number] Acct: [id number] Name: JODI MOMIN Rep #: [id number] : 1950 Provider: Yosi Mcnair MD Age/Sex: 67/F Location[facility] Status: Signed HPI 3 M FU (we [...] [History Confirmed 10/09/17] Fluticasone 0.05% [Flonase Nasal [place]] 1 spray NASAL DAILY 05/16/14 [History Confirmed 10/09/17] Lisinopril [Zestril] 20 mg PO QHS 05/16/14 [History Confirmed 10/09/17] Multivitamins,Therapeutic [Multivitamin] 1 tab PO BID 05/16/14 [History Confirmed 10/09/17] Zinc 50 mg PO DAILY 01/11/17 [History Confirmed 10/09/17] denosumab 60 mg/mL subc utaneous syringe 60 mg SC [id number] 10/04/17 [History Confirmed 10/09/17] levothyroxine 125 mcg [...] 10/10/17] Ejection fraction %: 50 to 54 [facility] Medical History O stium secundum atrial septal defect (Chronic) History of stroke (Chronic) Obesity (Resolved) Hyperlipidemia (Chronic) snf current use of anticoagulant (Chronic) Atrial fibrillation [...] MD Cosigner Signature: Date (if applicable) CC: Nic Hallman MD 21-Sep-2017 PT D/C Summary (1) Result: Comments: See Note; NOTES: [facility] [address] [place], [place] [address] Fax [facility] SUMMARY MR#: [id number] Acct: [id number] Name: JODI MOMIN Rep #: [id number] : 1950 67 From: Susannah Olivia PT, Cert. MDT Referring Dr.: Nic Hallman MD Status: REG RCR Insurance: [employer] PART A B [facility] - PT D/C Summary It has been my pleasure to treat JODI MOMIN under orders from Nic Hallman, for the diagnosis of LUMBAR DDD [...] please feel free to call me at [phone]. Thank you for the referral of this patient. Sincerely, Susannah Olivia <Electronically signed by Susannah green PT, Cert. MDT> 09/21/17 1145 CC: Nic Hallman MD NISHA Signed 18-Aug-2017 Inital Evaluation (1) - PT Result: Comments: See Note; NOTES: [facility] [address] [place], [place] [address] Fax REHABILITATION SERVICES INITIAL EVALUATION MR#: [id number] Acct: [id number] Name: JODI MOMIN Rep #: [id number] : 1950 67 From: Susannah Olivia PT, Cert. MDT Referring Dr.: Nic Hallman MD Status: REG RCR Insurance: [facility] PART A B [facility] Patient's Visit Information JODI MOMIN is a 67 year old F referred to Physical Therapy by Nic Hallman with a diagnosis of LUMBAR DDD AND RADICULAR PAIN TO HIPS.. Date of Evaluation: 08/18/17 Physical Therapist: Susannah Olivia - Visit Plan Frequency: 2-3x /Week Duration: 4-6 Weeks Plan: POSTURE CORRECTION/STRENGTHENING, INSTRUCTION IN APPROPRIATE BODY MECHANICS AND AC TIVITY MODIFICATIONS. DLS STARTING WITH A NEUTRAL SPINE PROGRESSING ROM TOLERATED. DEOBRAH LE ROM, STRETCHING AND STRENGTHENING. HEP INSTRUCTION. [...] Pain Scale: WORST 7/10, LEAST 2/10. Currently: 5/10. Commenced as a result of: OLD AGE [...] NO. Imaging: SEE IMAGING OF HIPS IN [facility] EMR. PMH: ATRIAL FIB. CHRONIC [...] Olivia PT, Cert. MDT> 08/18/17 1439 CC: Nic Hallman MD NISHA Signed For Medicare only, by signing this I certify the plan of care. Physicians Signature Date 03-Jul-2017 PT D/C Summary (1) Result: Comments: See Note; NOTES: [facility] [address] [facility] [facility] [address] [place] [address] Fax [facility] SUMMARY MR#: [id number] Acct: [id number] Name: JODI MOMIN Rep #: [id number] : 1950 67 From: Annabel Patino DPLavinia Referring Dr.: Nic Hallman MD Status: REG RCR Insurance: MEDICARE PAR T A B [facility] - PT D/C Summary It has been my pleasure to treat JODI MOMIN under orders from Nic Hallman, for the diagnosis of Lumbar and [...] please feel free to call me at [phone]. Thank you for the referral of this patient. Sincerely, Annabel Patino <Electronically signed by Annabel Patino DPT> 07/03/17 1327 CC: Nic Hallman MD ELR Signed 26-Sep-2017 Re-Evaluation - PT (1) Result: Comments: See Note; NOTES: [facility] [address] [place], [place] [address] Fax REEVALUATION / MEDICARE [facility] MR#: [id number] Acct: [id number] Name: JODI MOMIN Rep #: [id number] : 1950 67 From: Annabel Patino DPT Referring Dr.: Nic Hallman MD Status: REG RCR Insuranc e: MEDICARE PART A B ANTHEM Nic Hallman, It has been my pleasure to [...] not hesitate t o contact me at [phone] by phone or if you have questions or concerns regarding this new plan of care! Sincerely, Annabel Patino <Electronically signed by Annabel gutierres DPT> 06/06/17 1315 CC: Nic Hallman MD ELR Signed For Medicare only, by signing this I certify the plan of care. Physicians Signature Date 22-May-2017 Lower Ext Joint Only (Routine) Result: Comments: See Note; NOTES: [facility] Imaging Services [address] [place] [address] Lower Ext Joint Only (Routine) MR#: [id number] Acct: [id number] Name: LILIANEJODI Sade Re p #: [id number] : 1950 F 67 From: Matti Rosa MD PCP: Nic Hallman MD Status: REG CLI Study: Lower Ext Joint Only (Routine) Date of Exam: 05/22/17 Exam# [id number] Ordering Dr: Nic Hallman STUDY: MRI LEFT HIP REASON FOR [...] Tel , Service support , Fax CC: Nic Hallman MD Can Dragger: Signed 16-May-2017 SCREENING MAMM (CAD), BILAT Result: Comments: See Note; NOTES: [facility] Imaging Services [address] [place] [address] SCREENING MAMM (CAD), BILAT MR#: [id number] Acct: [id number] Name: JODI MOMIN Rep # : [id number] : 1950 F 67 From: Aaron Shrestha MD PCP: Nic Hallman MD Status: REG CLI Study: SCREENING MAMM (CAD), BILAT Date of Exam: 05/16/17 Exam# [id number] Ordering Dr: Nic Hallman MD MAMMOGRAPHY - BILATERAL SCREENING REASON [...] biop sy of a clinically suspicious abnormality. [id number] Electronically Signed: Aaron Shrestha MD at 11:02 EDT Tel [phone], Service support , CC: Nic Hallman MD Can Dragger: Signed 12-May-2017 Bone Scan Whole Body Result: Comments: See Note; NOTES: [facility] Services [address] [place] [address] Bone Scan Whole Body MR#: [id number] Acct: [id number] Name: JODI MOMIN Rep #: [id number] : 1950 F 67 From: Jorge Marroquin DO PCP: Nic Hallman MD Status: REG CLI Study: Bone Scan Whole Body Date of Exam: 05/12/17 Exam# [id number] Ordering Dr: Nic Hallman MD ADDENDUM by Robbin Marroquin DO [...] Tel , Servi ce support , 05/18/17 1630 Date cc: Nic Hallman MD * Signed ADDENDUM by Jorge [...] bladder activity identified. 05/18/17 1630 Date cc: Nic Hallman MD * Signed CLINICAL: 67-year-old female [...] EDT Tel , Service support , CC: Nic Hallman MD Can Dragger: Signed 12-May-2017 Bone Scan Whole Body Result: Comments: See Note; NOTES: [facility] Imaging Services [address] [place] [address] Bone Scan Whole Body MR#: [id number] Acct: [id number] Name: JODI MOMIN Rep #: [id number] : 1950 F 67 From: Jorge Marroquin DO PCP: Nic Hallman MD Status: REG CLI Study: Bone Scan Whole Body Date of Exam: 05/12/17 Exam# [id number] Ordering Dr: Nic Hallman MD CLINICAL: 67-yea r-old female with [...] urinary bladder activity identified. ORD ER #: [id number] NM/Bone Scan Whole Body IMPRESSION: 1. Facilitated radiotracer concentration visualized in the left femoral neck likely represents previous trauma-fracture. Correlation with magnetic yvonne ast imaging may be of benefit for [...] Tel , Service support , Fax CC: Nic Hallman MD Can Dragger: Signed 10-May-2017 Inital Evaluation (1) - PT Result: Comments: See Note; NOTES: [facility] [address] [place] [address]. [address] [place] [address] Fax REHABILITATION SERVICES INITIAL EVALUATION MR#: [id number] Acct: [id number] Name: JODI MOMIN Rep #: [id number] : 1950 67 From: Annabel Patino DPT Referring Dr.: Nic Hallman MD Status: REG RCR Insurance: MEDICARE PA RT A B [facility] Patient's Visit Information JODI MOMIN is a 67 year old F referred to Physical Therapy by Nic Hallman with a diagnosis of Lumbar and [...] Arthritis, sitting back in a chair. 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 Nick rock will sit and watch TV or play games on the IPad but is not a busy chefornak. Has a reclyner that is overstuffed and [...] to be FAXED BACK to us at [phone] for Medicare purposes. Please let me know if there are questions or concer ns regarding this plan of care. Physician Signature: Date: <Electronically signed by Annabel Patino DPT> 05/10/17 1432 C C: Nic Hallman MD ELR Signed For Medicare only, by signing this I certify the plan of care. Physicians Signature Date 08-May-2017 Hip 2-3 Views with Pelvis Result: Comments: See Note; NOTES: [facility] Imaging Services [address] [place] [address] Hip 2-3 Views with Pelvis MR#: [id number] Acct: [id number] Name: JODI MOMIN Rep #: [id number] : 1950 F 67 From: Jason Waddell MD PCP: Nic Hallman MD Status: REG CLI Study: Hip 2-3 Views with Pelvis Date of Exam: 05/08/17 Exam# [id number] Ordering Dr: Nic Hallman MD STUDY: X-RAY - PELVIS AND [...] 22:46 EDT , Service support , CC: Nic Hallman MD Can Dragger: Signed 08-May-2017 Hip 2-3 Views with Pelvis Result: Comments: See Note; NOTES: [facility] Imaging Services [address] [place] [address] Hip 2-3 Views with Pelvis MR#: [id number] Acct: [id number] Name: JODI MOMIN Rep #: [id number] : 1950 F 67 From: Jason Waddell MD PCP: Nic Hallman MD Status: REG CLI Study: Hip 2-3 Views with Pelvis Date of Exam: 05/08/17 Exam# [id number] Ordering Dr: Nic Hallman MD STUDY: X-RAY - PELVIS AND [...] 22:49 EDT , Service support , CC: Nic Hallman MD Can Dragger: Signed 08-May-2017 L/S Spine Min 4 Views Result: Comments: See Note; NOTES: [facility] Imaging Services [address] [place] [address] L/S Spine Min 4 Views MR#: [id number] Acct: [id number] Name: JODI MOMIN Rep #: [id number] : 1950 F 67 From: Jason Waddell MD PCP: Nic Hallman MD Status: REG CLI Study: L/S Spine Min 4 Views Date of Exam: 05/08/17 Exam# [id number] Ordering Dr: Nic Hallman MD STUDY: X-RAY - LUMBAR SPINE REASON [...] 22:49 EDT , Service support , CC: Nic Hallman MD Can Dragger: Signed 26-Aug-2016 Carotid Duplex Ultrasound Result: Comments: See Note; NOTES: [facility] Cardiovascular Services [address] [place] [address] Carotid Duplex Ultrasound 08/18/16 1349 MR#: [id number] Acct: [id number] Name: JODI TO Rep #: [id number] : 1950 66 From: Rodrigue Campbell MD Attending Dr: Nic Hallman MD Status: REG CLI Ordering Dr: Nic Hallman MD Date: 08/18/16 Location: MRI Sex: [...] the left vertebral artery. Procedure Carotid Duplex 24855. Exam performed in department. Interpretation Summary Mild (& #60;50%) stenosis right extracranial internal carotid. Mild (<50%) stenosis left extracranial internal carotid. Flow within the vertebral arteries is antegrade bilaterally. Ordering Physician: Nic Hallman Performed By: Basia Mathews RVT 08/26/16 1655 Date Rodrigue Campbell MD CC: Nic Hallman MD Date Dictated: 08/18/16 1349 Date Transcribed: 08/26/16 1655 Can Dragger: Signed 18-Aug-2016 Upper Ext Joint Only(Routine) Result: Comments: See Note; NOTES: [facility] Imaging Services [address] [place] [address] Verdana 4d Upper Ext Joint Only(Routine) MR#: [id number] Acct: [id number] Name: RIVAS MOMIN Rep #: [id number] : 1950 F 66 From: Matti Rosa MD PCP: Nic Hallman MD Status: REG CLI Study: Upper Ext Joint Only(Routine) Date of Exam: 08/18/16 Exam# [id number] Ordering Dr: Nic Villalta i, MD STUDY: MRI RIGHT SHOULDER [...] at 14:18 EST Tel , Service support [phone], CC: Nic Hallman MD Can Dragger: Signed 12-May-2016 Bilat Scrn Digital AND CAD Result: Comments: See Note; NOTES: [facility] Imaging Services [address] [place] [address] Verdana 4d Bilat Scrn Digital AND CAD MR#: [id number] Acct: [id number] Name: MELONY MOMIN Rep #: [id number] : 1950 F 66 From: Aaron Shrestha MD PCP: Nic Hallman MD Status: REG CLI Study: Bilat Scrn Digital AND CAD Date of Exam: 05/12/16 Exam# [id number] Ordering Dr: Nic Villalta i, MD MAMMOGRAPHY - BILATERAL SCREENING [...] no significant change since the prior study. HPBI/Bilat Scrn Digital AND CAD IMPRESSION: Stable bilateral screening mammogram. Yearly follow-up mammogram recommended. (A) ASSESSMENT CATEGORY: BIRADS Category 1: Negative. A letter regarding these results will be sent to the patient by the facility within 30 days. Approximately 10% of breast ca ncers are not detected by mammography. A normal mammogram should not delay biopsy of a clinically suspicious abnormality. [id number] Electronically Signed: Aaron Shrestha MD at 15:01 EDT T el [phone], Service support [phone], CC: Nic Hallman MD Can Dragger: Signed 16-Mar-2016 PT D/C of Non Returning Pt (1) Result: Comments: See Note; NOTES: [facility] Physical Therapy [address] [place] [address] Fax REHABILITATION RVICES DISCHARGE SUMMARY MR#: [id number] Acct: [id number] Name: JODI MOMIN Rep #: [id number] : 1950 66 From: Jason Almaguer PT, ATC Referring DrÁlvaro: Ayde Rodriguez DO Status: REG RCR Insurance: MEDICARE PART A B ANTHEM - Discharge Summary (1) - Patient Information [...] Almaguer PT, ATC&amp ;#62; 03/16/16 1452 CC: Nic Hallman MD; Ayde Rodriguez DO [facility] Signed 02-Mar-2016 Re-Evaluation - PT (1) Result: Comments: See Note; NOTES: [facility] [address] [place] [address]. [address] [place] [address] Fax REEVALUATION / ME DICARE RECERTIFICATION [place] 4d PHYSICAL THERAPY MR#: [id number] Acct: [id number] Name: JODI MOMIN Rep #: [id number] : 1950 66 From: Jason Almaguer PT, ATC Referring Dr.: Tacos Rodriguez DO Status: REG RCR Insurance: MEDICARE PART A B HYUN Rodriguez DO, It has been my pleasure [...] do not hesitate to contact me at [phone] b y phone or if you have questions or concerns regarding this new plan of care! Sincerely, Jason Almaguer <Electronically signed by Jason Almaguer PT, ATC> 03/02 1228 CC: Nic Hallman MD; Ayde Rodriguez DO [facility] Signed For Medicare only, by signing this I certify the plan of care. Physicians Signature Date 10-Feb-2016 Inital Evaluation (1) - PT Result: Comments: See Note; NOTES: [facility] Physical Therapy [facility] [address] [place] [address] Rd. [address] [place] [address] Fax REHABILITATION SE EZEQUIEL INITIAL EVALUATION MR#: [id number] Acct: [id number] Name: JODI MOMIN Rep #: [id number] : 1950 66 From: Jason Almaguer PT, [...] to be FAXED BACK to us at [phone] for Medicare purposes. Please let me know if t here are questions or concerns regarding this plan of care. Physician Signature: Date: <Electronically signed by Jason Almaguer PT, ATC> 02/10/16 1008 CC: Nic Hallman MD; Ayde Rodriguez DO [facility] Signed For Medicare only, by signing this I certify the plan of care. Physicians Signature Date 09-Feb-2016 Cerv Spine 4 or 5 Views Result: Comments: See Note; NOTES: [facility] Imaging Services [address] [place] [address] Verdana 4d Cerv Spine 4 or 5 Views MR#: [id number] Acct: [id number] Name: JODI MARLOW Rep #: [id number] : 1950 F 66 From: Aaron Shrestha MD PCP: Nic Hallman MD Status: REG CLI Study: Cerv Spine 4 or 5 Views Date of Exam: 02/09/16 Exam# [id number] Ordering Dr: Nic Hallman MD STUDY: X-RAY - CERVICAL SPINE [...] Aaron Shrestha MD at 13:40 EDT Tel [phone], Service support [phone], Fax RAD/Cerv Spine 4 or 5 Views IMPRESSION: Straightening of the normal cervical lordosis with mild anterior spondylosis and disc space narrowing at the C5-C6 level. Calcif ication at the carotid bifurcation. Electronically Signed: Aaron Shrestha MD at 13:40 EDT Tel [phone], Service support [phone], CC: Nic Hallman MD Can Dragger: Signed 09-Feb-2016 Shoulder min 2 Views Result: Comments: See Note; NOTES: [facility] Imaging Services [address] [place] [address] Vernic 4d Shoulder min 2 Views MR#: [id number] Acct: [id number] Name: JODI PARKER Rep #: [id number] : 1950 F 66 From: Aaron Shrestha MD PCP: Nic Hallman MD Status: REG CLI Study: Shoulder min 2 Views Date of Exam: 02/09/16 Exam# [id number] Ordering Dr: Nic Rodriguez MD STUDY: X-RAY - RIGHT SHOULDER [...] Shrestha MD at 13: 47 EDT Tel [phone], Service support [phone], RAD/Shoulder min 2 Views IMPRESSION: Calcific tendinitis. Degenerative changes of the glenohumeral joint and acromioclavicular joint. Electronically Signed: Aaron Shrestha MD at 13:47 EDT Tel [phone], Service support [phone], CC: Nic Hallman MD Can Dragger: Signed 03-Feb-2016 Dexa Bone Density Study (HP) Result: Comments: See Note; NOTES: [facility] Imaging Services [address] [place] [address] Verdana 4d Dexa Bone Density Study (HP) MR#: [id number] Acct: [id number] Name : JODI MOMIN Rep #: [id number] : 1950 F 66 From: Aaron Shrestha MD PCP: Nic Hallman MD Status: REG CLI Study: Dexa Bone Density Study () Date of Exam: 02/03/16 Exam# [id number] Ordering Dr: Nic Hallman MD STUDY: DUAL ENERGY X-RAY ABSORPTIOMETRY [...] Aaron Shrestha MD at 12:20 EDT Tel [phone], Service support [phone], CC: Nic Hallman MD Can Dragger: Signed 20-Dec-2015 Carotid Duplex Ultrasound Result: Comments: See Note; NOTES: [facility] Cardiovascular Services [address] [place] [address] Carotid Duplex Ultrasound 12/18/15 0908 MR#: [id number] Acct: [id number] Name: JODI MOMIN Rep #: [id number] : 1950 65 From: Rodrigue Campbell MD Attending Dr: Nic Hallman MD Status: REG CLI Ordering Dr: Nic Hallman MD Date: 12/18/15 Location: [facility] Sex: F C Admitted: Reason For Study: [...] the left vertebral artery. Procedure Carotid Duplex 90309. Exam performed in department. Interpretation Summary Mild (<50%) stenosis right extracranial internal carotid. Mild (<50%) stenosis left extracrania l internal carotid. Flow within the vertebral arteries is antegrade bilaterally. Ordering Phys ician: Nic Hallman Performed By: Basia Mathews RVT 12/20/152037 Date Rodrigue Campbell MD CC: Nic Hallman MD Date Dictated: 12/18/15907 Date Transcribed: 12/20/152037 Can Dragger: Signed 29-Jan-2015 Bilat Scrn Digital AND CAD Result: Comments: See Note; NOTES: [facility] Imaging Services [address] [place] [address] Breast Imaging Report MR#: [id number] Acct: [id number] Name: JODI MOMIN Rep #: [id number] : 1950 F 65 From: Aaron Shrestha MD PCP: Nic Hallman MD Status: REG CLI Study: Bilat Scrkaro Digital AND CAD Date of Exam: 01/29/15 Exam# [id number] Ordering Dr: Jeff Hallman MD MAMMOGRAPHY - BILATERAL SCREENING REASON FOR EXAM: Female, 65 years old. Routine annual screening examination. PERTINENT HISTORY: Non- contributory. TECHNIQUE: Digital examination. Mediol ateral oblique (MLO) and craniocaudad (CC) views of both breasts were obtained. CAD: CAD was performed on this study. COMPARISON: Comparison is made with prior examination dated January 28, 2014 and [place] 2012. FINDINGS: Breast Composition: There are scattered [...] Aaron gipson MD at 13:33 EDT Tel [phone], Service support [phone], CC: Nic Hallman MD Can Dragger: Signed 29-Jan-2015 Bilphillip Scrkaro Digital AND CAD Result: Comments: See Note; NOTES: [facility] Imaging Services [address] [place] [address] Breast Imaging Report MR#: [id number] Acct: [id number] Name: JODI MOMIN Rep #: [id number] : 1950 F 65 From: Aaron Shrestha MD PCP: Nic Hallman MD Status: REG CLI Study: Kam Bains Digital AND CAD Date of Exam: 01/29/15 Exam# [id number] Ordering Dr: Jeff Hallman MD MAMMOGRAPHY - BILATERAL SCREENING REASON FOR EXAM: Female, 65 years old. Routine annual screening examination. PERTINENT HISTORY: Non- contributory. TECHNIQUE: Digital examination. Mediol ateral oblique (MLO) and craniocaudad (CC) views of both breasts were obtained. CAD: CAD was performed on this study. COMPARISON: Comparison is made with prior examination dated January 28, 2014 and [place] 2012. FINDINGS: Breast Composition: There are scattered [...] Aaron gipson MD at 13:33 EDT Tel [phone], Service support [phone], CC: Nic Hallman MD Can Dragger: Signed 03-Oct-2014 Operative Report Result: Comments: See Note; NOTES: [facility] Medical Records Department [address] [place] [address] Operative Report 09/30/14 1348 MR#: [id number] Acct: [id number] Name: JODI FLOREZ Rep #: [id number] : 1950 64 From: Lesa Crain MD PCP: Nic Hallman MD Status: [facility] Y Location: [facility] Report of Operation Date of Procedure: 09/30/14 Pre-Operative Diagno sis: papillary thyroid cancer Post-Operative Diagnosis: same Surgery/Procedure Performed:: completion thyroidectomy hand worker: Danna Jenkins Type of Anesthesia:: General Anesthesiologist: [...] right thyroid lobe could be further retrac jhonyn medially. The recurrent laryngeal nerve was identified. [...] Crain MD> Date Lesa Crain MD CC: Nic Hallman MD; Lesa Crain MD Signed 01-Oct-2014 Discharge Instruction Result: Comments: See Note; NOTES: [facility] Medical Records Department [address] [place] [address] Instructions for Home/Discharge Instructions 10/01/14 0833 MR#: [id number] Acc t: [id number] Name: JODI MOMIN Rep #: [id number] : 1950 64 From: Lesa Crain MD PCP: Nic Hallman MD Status: REG SDC ADDENDUM by Lesa Crain MD on 10/01/14 at 0839 Also, may apply ice packs to neck area as tolerated Date Lesa Crain MD cc: Nic Hallman MD * Signed Discharge Diet: Soft [...] mg PO DAILY@0800 Fluticasone 0.05% [Flonase Nasal [place]] 1 spray NASAL DAILY Furosemide [Lasix] 2 [...] Please Follow Up With: Lesa Crain - tran When: to be seen tomorrow, please call for time, thank you Proposed Discharge Date: 10/01/14 10/01/14 0 837 <Electronically signed by Lesa Crain MD> Date Lesa Crain MD CC: Nic Hallman MD 01-Oct-2014 Discharge Instruction Result: Comments: See Note; NOTES: [facility] Medical Records Department [address] [facility] [place] [address] Instructions for Home/Discharge Instructions 10/01/14 0833 MR#: [id number] Acc t: [id number] Name: JODI MOMIN Rep #: [id number] : 1950 64 From: Lesa Crain MD PCP: Nic Hallman MD Status: REG SDC Discharge Diet: Soft diet - soft mechanical [...] mg PO DAILY@0800 Fluticasone 0.05% [Flonase Nasal [place]] 1 spray NASAL DAILY Furosemide [Lasix] 20 [...] Crain MD> Date Lesa Crain MD CC: Nic Hallman MD 14-Sep-2014 Operative Report Result: Comments: See Note; NOTES: [facility] Medical Records Department [address] [place] [address] Operative Report 09/10/14 1244 MR#: [id number] Acct: [id number] Name: JODI FLOREZ Rep #: [id number] : 1950 64 From: Lesa Crain MD PCP: Nic Hallman MD Status: DEP [facility] Y Location: [facility] Report of Operation Date of Procedure: 09/10/14 Pre-Operative Diagno sis: left thyroid nodules - atypical follicular findings by FNA Post-Operative Diagnosis: same Surgery/Procedure Performed:: left thyroid lobectomy and isthmusectomy hand worker: Danna Jenkins of Anesthesia:: General Anesthesiologist: Bobby [...] Crain MD> Date Lesa Crain MD CC: Nic Hallman MD; Lesa Crain MD Signed 01-Sep-2014 Operative Report Result: Comments: See Note; NOTES: [facility] Medical Records Department [address] [place] [address] Operative Report 08/26/14 2105 MR#: [id number] Acct: [id number] Name: JODI FLOREZ Rep #: [id number] : 1950 64 From: Lesa Crain MD PCP: Nic Hallman MD Status: REG CLI Y Location: [...] Crain MD> Date Lesa Crain MD CC: Nic Hallman MD; Lesa Crain MD Signed 26-Aug-2014 US Thyroid Biopsy Result: Comments: See Note; NOTES: [facility] Imaging Services [address] [place] [address] Ultrasound Report MR#: [id number] Acct: [id number] Name: JODI MOMIN Rep #: : 1950 F 64 From: Aaron Shrestha MD PCP: Nci Hallman MD Status: REG CLI Study: US Thyroid Biopsy Date of Exam: 08/26/14 Exam# [id number] Ordering Dr: Lesa Crain MD STUDY: ULTRASOUND-GUIDED [...] Aaron Shrestha MD at 13:55 EST Tel [phone], Service support [phone], CC: Nic Hallman MD; Lesa Crain MD Can Dragger: Signed 13-Aug-2014 Thyroid Uptake Single or Mult Result: Comments: See Note; NOTES: [facility] Imaging Services [address] [place] [address] Nuclear Medicine Report MR#: [id number] Acct: [id number] Name: JODI MOMIN Rep #: [id number] : 1950 F 64 From: Jorge Marroquin DO PCP: Nic Hallman MD Status: REG CLI Study: Thyroid Uptake Single or Mult Date of Exam: 08/13/14 Exam# [id number] Ordering Dr: Nic Hallman MD CLINICAL: 64 year old female [...] Jorge Marroquin DO at 20:59 EST Tel [phone], Service support [phone] , CC: Nic Hallman MD Can Dragger: Signed 05-Jun-2014 Thyroid Result: Comments: See Note; NOTES: [facility] Imaging Services [address] [place] [address] Ultrasound Report MR#: [id number] Acct: [id number] Name: JODI MOMIN Rep #: [id number] : 1950 F 64 From: Aaron Shrestha MD PCP: Nic Hallman MD Status: REG CLI Study: Thyroid Date of Exam: 06/05/14 Exam# [id number] Ordering Dr: Nic Hallman MD STUDY: THYROID ULTRASOUND REASON FOR [...] Aaron Shrestha MD at 15:21 EDT Tel [phone], Service support [phone] , CC: Nic Hallman MD Can Dragger: Signed 21-May-2014 Chest WITH Contrast Result: Comments: See Note; NOTES: [facility] Imaging Services [address] [place] [address] CAT Scan Report MR#: [id number] Acct: [id number] Name: JODI MOMIN Rep #: [id number] : 1950 F 64 From: Aaron Shrestha MD PCP: Nic Hallman MD Status: REG CLI Study: Chest WITH Contrast Date of Exam: 05/21/14 Exam# [id number] Ordering Dr: Yosi Mcnair MD STUDY: CT [...] Aaron Shrestha MD at 10:50 EDT Tel [phone], Service support [phone], CC: Yosi Mcnair MD; Nic Hallman MD Can Dragger: Signed 20-May-2014 Operative Report Result: Comments: See Note; NOTES: [facility] Medical Records Department [address] [place] [address] Operative Report MR#: [id number] Acct: [id number] Name: JODI MOMIN Rep #: [id number] : 1950 64 From: Yosi Mcnair MD PCP: Nic Hallman MD Status: DEP CLI DATE OF [...] to anesthetize the right femoral area. A 5-[place] right femoral arterial sheath was placed without difficulty and side port flushed. A 5-[place] JL4 catheter was advanced to ascending aorta, flushed and pressures recorded. Left coronary ostium was identified and engaged and left c oronary angiography performed in multiple views. Following this, the catheter was removed and a 5-[place] JR4 catheter was inserted. The right coronary [...] care. Yosi Mcnair MD T: NTS JOB: [id number] 05/20/142002 <Electronically signed by Yosi Mcnair MD> Date Yosi Mcnair MD CC: Yosi Mcnair MD; Nic aHllman MD Date Dictated: 05/19/14 1003 Date Transcribed: 05/19/14 1003 Can Dragger: Signed 15-May-2014 Chest PA and Lateral Result: Comments: See Note; NOTES: [facility] Imaging Services [address] [place], [place] [address] [address] Radiology Report MR#: [id number] Acct: [id number] Name: JODI MOMIN Rep #: [id number] : 1950 F 64 From: Vik Ball MD PCP: Nic Hallman MD Status: PRE CLI Study: Chest PA and Lateral Date of Exam: 05/15/14 Exam# [id number] Ordering Dr: Yosi Mcnair MD STUDY: X- [...] at 10:17 EDT Tel , Service support [phone], CC: Yosi Mncair MD; Nic Hallman MD Can Dragger: Signed 05-May-2014 Nuclear Stress Test - Chemical Result: Comments: See Note; NOTES: [facility] Imaging Services [address] [place] [address] Nuclear Medicine Report MR#: [id number] Acct: [id number] Name: JODI MOMIN Rep #: [id number] : 1950 F 64 From: Yosi Mcnair MD PCP: Nic Hallman MD Status: REG CLI Study: Nuclear Stress Test - Chemical Date of Exam: 05/05/14 Exam# [id number] Ordering Dr: Jose Estrada PHARMACOLOGIC MYOCARDIAL PERFUSION [...] ischemia present. 2. Preserved ejection fraction. CC: Nic Hallman MD; Sarah Estrada Can Dragger: GARZA Signed 28-Jan-2014 Bilat Scrn Digital & CAD Result: Comments: See Note; NOTES: [facility] Imaging Services [address] [place] [address] Breast Imaging Report MR#: [id number] Acct: [id number] Name: JODI MOMIN Rep # : [id number] : 1950 F 64 From: Aaron Shrestha MD PCP: Nic Hallman MD Status: REG CLI Exam# [id number] Ordering Dr: Nic Hallman MD MAMMOGRAPHY - BILATERAL SCREENING REASON [...] sent to the patient by the facility mehdi dominguez 30 days. Approximately 10% of breast cancers are not detected by mammography. A normal mammogram should not delay biopsy of a clinically suspicious abnormality. Electronically Signed: Bryon Shrestha MD at 14:22 EDT Tel [phone], Service support [phone], CC: Nic Hallman MD Can Dragger: Signed 28-Jan-2014 Dexa Bone Density Study (HP) Result: Comments: See Note; NOTES: [facility] Imaging Services [address] [place] [address] Bone Density Report MR#: [id number] Acct: [id number] Name: JODI MOMIN Rep #: [id number] : 1950 F 64 From: Aaron Shrestha MD PCP: Nic Hallman MD Status: REG CLI Study: Dexa Bone Density Study (HP) Date of Exam: 01/28/14 Exam# [id number] Ordering Dr: Nic Hallman MD STUDY: DUAL ENERGY X-RAY ABSORPTIOMETRY [...] Aaron Shrestha MD at 10:44 EDT Tel [phone], Service support [phone], CC: Nic Hallman MD Can Dragger: Signed Immunization Name Dates Details Influenza (3 years and up) on: 30-Jun-2008 Comments: Lot #[id number]-left deltoidDose0.5 mlgiven by Cristine Ott LPN Family [...] Status: Active Most Recent Primary Occupation Comments: [employer], retired [employer] Status: Active No Drug Use Status: Active Tobacco Use: Former smoker. Status: Active Tobacco use Comments: same status 12..11, 10/12/11, 01/09/12 Status: Inactive Smoking Status Name Dates Details Former smoker Vital Signs Date Test Result Details :06 Weight 164 lb Height 54.5 in [...] kg/m2 Body Surface Area Calculated 1.59 m2 : Weight 156 lb Height 54.5 in Body [...] kg/m2 Body Surface Area Calculated 1.6 m2 :54 Temperature 97.4 f Comments: Method: Tympanic Pulse [...] kg/m2 Body Surface Area Calculated 1.61 m2 :20 Temperature 97.5 f Comments: Method: Temporal Pulse [...] kg/m2 Body Surface Area Calculated 1.61 m2 :11 Temperature 98.2 f Comments: Method: Oral Pulse [...] kg/m2 Body Surface Area Calculated 1.6 m2 2-Lct-934851:16 Pulse 92 /min Comments: Pattern: Regular Respiration [...] kg/m2 Body Surface Area Calculated 1.6 m2 :51 Temperature 97.8 f Comments: Method: Oral Pulse [...] 0.00 cm Results Date Description Value Details 5-Awd-904698:17 AMMONIA (74487) Comments: PATIENT NOT FASTINGPERFORMED BY: [address] [id number] BY: [facility]-FairhillNumedeonAlex[place] [address] [facility] [place] [id number] Ammonia, Plasma 46 ug/dL (Normal) Range: 19-87 0-Lde-864918:17 FOLIC ACID SERUM (49797) Comments: PATIENT NOT FASTINGPERFORMED BY: [employer] [id number] BY: [facility] GuitarsOcean Medical CenterPmkder3206 [facility] [place] [id number] Folate (Folic Acid), Serum >20.0 ng/mL (Normal) Comments: A serum folate concentration of less than 3.1 ng/mL isconsidered to represent clinical deficiency. 1-Ivk-815007:17 Vitamin B-12 (cyanocobalamin) Comments: PATIENT NOT FASTINGPERFORMED BY: [facility] HospitalNumedeon[address] [id number] BY: [facility] GuitarsOcean Medical CenterFqlbpt0852 [facility] [id number] (07[address]) Vitamin B12 738 pg/mL (Normal) Range: 232-1245 7-Oeu-047543:17 Methymalonic Acid, Serum Comments: PATIENT NOT FASTINGPERFORMED BY: [employer] [id number] BY: [place] [address]3770 [facility] [id number] (38[address]) Disclaimer: SPRCS (Normal) Comments: This test was developed and its performance characteristicsdetermined by [employer]. It has not been cleared or approvedby the Food and Drug Administration. Methylmalonic Acid, Serum 225 nmol/L (Normal) Range: 0-378 3-Wfo-522858:17 T4, FREE (THYROXINE) Comments: PATIENT NOT FASTINGPERFORMED BY: [employer] [id number] BY: [facility]6370 [facility] [id number] (09609) T4,Free(Direct) 1.71 ng/dL (Normal) Range: 0.82-1.77 5-Xon-494880:17 T3, FREE (TRIDOTHYRONINE) Comments: PATIENT NOT FASTINGPERFORMED BY: [employer] [id number] BY: [place]arsAlex[place] 9703870 [facility] [id number] (31534) Triiodothyronine (T3), Free 3.7 pg/mL (Normal) Range: 2.0-4.4 8-Tij-072476:17 CALCIFIDIOL (55706) VIT D Comments: PATIENT NOT FASTINGPERFORMED BY: [employer] [id number] BY: [facility] GuitarsOcean Medical CenterKoagfc0245 [facility] [id number] 25 Vitamin D, 25-Hydroxy 49.4 ng/mL (Normal) Range: 30.0-100.0 Comments: Vitamin D deficiency has been defined by the [place] of[facility] Hospitalcine and an Endocrine Society practice guideline as alevel of serum 25-OH vitamin D less than 20 ng/mL (1,2).The Endocrine Society went on to further define vitamin Dinsufficiency as a level between 21 and 29 ng/mL (2).1. IOM ([place] of Medicine). 2010. Dietary reference intakes for calcium and D. [place]: The National Academies Press.2. Domingo MF, Gregor SMITH, Joaquin GARZA, et al. Evaluation, treatment, and prevention of vitamin D deficiency: an Endocrine Society clinical practice guideline. JCEM. 2010; 96(7):1911-30. 6-Ylu-015427:17 Hemoglobin Glyclated (HGB Comments: PATIENT NOT FASTINGPERFORMED BY: [facility]1447 [facility] [id number] BY: [facility]6370 [facility] [id number] A1C) (95298) Hemoglobin A1c 5.7 % (Abnormal) Range: 4.8-5.6 Comments: . Pre-diabetes: 5.7 - 6.4 Diabetes: >6.4 Glycemic control for adults with diabetes: <7.0 00-Txu-863087:35 Microscopic Examination Comments: PATIENT NOT FASTINGPERFORMED BY: [place] [id number] [facility] [id number] Bacteria Few (Normal) Mucus Threads Present (Normal) Epithelial Cells (non renal) 0-10 {/hpf} (Normal) Range: 0 - 10 RBC 0-2 {/hpf} (Normal) Range: 0 - 2 WBC 11-30 {/hpf} (Abnormal) Range: 0 - 5 99-Wiw-911443:35 MICROALBUMIN: CREATININE RATIO Comments: PATIENT NOT FASTINGPERFORMED BY: [place] 2243770 [facility] [id number] (05544) AND (36205) Alb/Creat Ratio 10.5 {mg/g_creat} (Normal) Range: 0.0-30.0 Albumin, Urine 12.6 ug/mL (Normal) Creatinine, Urine 120.2 mg/dL (Normal) 71-Bhx-606832:35 URINALYSIS (56815) Comments: PATIENT NOT FASTINGPERFORMED BY: [address] [id number] Microscopic Examination See below: (Normal) Comments: Microscopic was indicated and was performed. Nitrite, Urine Negative (Normal) Urobilinogen,Semi-Qn 0.2 mg/dL (Normal) Range: 0.2-1.0 Bilirubin Negative (Normal) Occult Blood Trace (Abnormal) Ketones Negative (Normal) Glucose Negative (Normal) Protein Negative (Normal) WBC Esterase 2+ (Abnormal) Appearance Cloudy (Abnormal) Urine-Color Yellow (Normal) pH 5.5 (Normal) Range: 5.0-7.5 Specific Ashby 1.018 (Normal) Range: 1.005-1.030 63-Irp-730162:35 CBC WITH MANUAL DIFF Comments: PATIENT NOT FASTINGPERFORMED BY: [facility]6370 [facility] [id number] Information: NURSE DRAW (42898) Immature Grans (Abs) 0.0 {x10E3/uL} (Normal) Range: [...] 3.77-5.28 WBC 4.5 {x10E3/uL} (Normal) Range: 3.4-10.8 64-Ofk-637093:35 Metabolic Panel, Comprehensive Comments: PATIENT NOT FASTINGPERFORMED BY: [facility]6370 [facility] [id number] (10471) ALT (SGPT) 25 [iU]/L (Normal) Range: 0-32 [...] Glucose, Serum 105 mg/dL (Abnormal) Range: 65-99 5-Eqy-464580:58 HgA1C , Office (28126) HgA1C , Office 5.6 % (Normal) Range: 4.6 - 7.1 80-Rec-953098:44 Basic Metabolic Profile (BMP) Comments: [facility] [address] [place], [place], [address] GAP 8 (Normal) Range: 5-15 CO2 29.0 [...] 7-18 GLU 95 mg/dL (Normal) Range: 70-110 3-Kkn-427330:48 Basic Metabolic Profile (BMP) Comments: [facility] R[address]asy[address] [facility] [address] [place], [place], [address] GAP 7 (Normal) Range: 5-15 CO2 26.0 [...] 7-18 GLU 93 mg/dL (Normal) Range: 70-110 9-Ztf-100813:48 T4 Free Direct Comments: [facility] F[address] [place], [place], [address] T4 FREE DIRECT 1.18 ng/dL (Normal) Range: 0.76-1.46 5-Xbk-605921:48 Thyroglobulin w/Anti-TG AB Comments: [facility] (refer to [...] of quantitation is 0.1ng/mLThyr oglobulin measured by [employer] ImmunometricAssayPerformed at: [facility] [employer] [id number] Director: Chato Irwin PhD, Phone: [phone] ANTI-TG AB < 1.0 {IU/mL} (Normal) Range: 0.0-0.9 Comments: Thyroglobulin Antibody measured by Annel CoulterMethodology 5-Npf-804373:48 Thyroid Stim Hormone (TSH) Comments: [facility] Kkyarzsjzf18[address] [place], [place], [address] TSH 0.03 {uIU/mL} (Abnormal) Range: 0.358-3.74 78-Lfi-760812:13 Vitamin B-12 Comments: PATIENT NOT FASTINGPERFORMED BY: [employer] [id number] BY: [employer] [id number] (cyanocobalamin) (71054) Vitamin B12 745 pg/mL (Normal) Range: 211-946 68-Yzu-710281:13 Methymalonic Acid, Serum Comments: PATIENT NOT FASTINGPERFORMED BY: [employer] [id number] BY: [employer] [id number] (62198) Methylmalonic Acid, Serum 230 nmol/L (Normal) Range: 0-378 22-Ujg-443020:13 RPR (RAPID PLASMA Comments: PATIENT NOT FASTINGPERFORMED BY: [employer] [id number] BY: [address] [id number] REAGIN) (84390) RPR Non Reactive (Normal) 45-Nhc-597552:13 Metabolic Panel, Comments: PATIENT NOT FASTINGPERFORMED BY: [employer] [facility] Trxqgy7189 [facility] [id number] BY: [facility] [id number] Comprehensive (95009) ALT (SGPT) 18 [iU]/L (Normal) Range: 0-32 [...] Glucose, Serum 93 mg/dL (Normal) Range: 65-99 21-Dbl-014856:13 TSH (01628) Comments: PATIENT NOT FASTINGPERFORMED BY: [facility] Bowfza1748 [facility] [id number] BY: [facility] [id number] TSH 0.027 {uIU/mL} (Abnormal) Range: 0.450-4.500 36-Iep-216948:13 T4, FREE (THYROXINE) Comments: PATIENT NOT FASTINGPERFORMED BY: [place] 2243770 [facility] [id number] BY: [address] [id number] (36686) T4,Free(Direct) 1.92 ng/dL (Abnormal) Range: 0.82-1.77 25-Lxi-010984:13 Sed Rate Erythrocyte Comments: PATIENT NOT FASTINGPERFORMED BY: [address] [id number] BY: [address] [id number] (64880) Sedimentation Rate-Westergren 5 mm/h (Normal) Range: 0-40 89-Yhj-925963:13 C-Reactive Protein Comments: PATIENT NOT FASTINGPERFORMED BY: [place] 2243770 [facility] [id number] BY: [address] [id number] (09516) C-Reactive Protein, Quant 0.4 mg/L (Normal) Range: 0.0-4.9 82-Ttl-906219:13 Creatine Kinase Total Comments: PATIENT NOT FASTINGPERFORMED BY: [address] [id number] BY: [address] [id number] (47159) Creatine Kinase,Total,Serum 30 U/L (Normal) Range: 24-173 22-Upj-22311:46 HgA1C , Office (06152) HgA1C , Office 5.8 % (Normal) Range: 4.6 - 7.1 10-Izt-176945:05 MICROALBUMIN: CREATININE Comments: PATIENT NOT FASTINGPERFORMED BY: [address] [id number] BY: [address] [place] [id number] RATIO (75374) AND (80759) Microalb/Creat Ratio <28.8 {mg/g_creat} (Normal) Range: 0.0-30.0 Microalbumin, Urine <3.0 ug/mL (Normal) Creatinine, Urine 10.4 mg/dL (Normal) 93-Raw-532293:05 CBC with auto diff Comments: PATIENT NOT FASTINGPERFORMED BY: CB [facility] Wtsvhc7109 Rosa RoadYadkin Valley Community Hospital [id number] BY: BN [facility] Yvueuzlcwl3235 [facility] [id number] (75260) Immature Grans (Abs) 0.0 {x10E3/uL} (Normal) Range: [...] 3.77-5.28 WBC 5.0 {x10E3/uL} (Normal) Range: 3.4-10.8 16-Jzk-159139:05 ZINC, BLOOD (78021) Comments: PATIENT NOT FASTINGPERFORMED BY: CB [facility] Ilieww14[address] [place] [id number] BY: BN [facility] Wqbsqgcrou3771 [facility] [id number] Zinc, Plasma or Serum 98 ug/dL (Normal) Range: 56-134 Comments: Detection Limit = 5 29-Fpy-320433:21 HgA1C , Office (95090) HgA1C , Office 5.6 % (Normal) Range: 4.6 - 7.1 87-Gpf-364382:15 Basic Metabolic Profile (BMP) Comments: Has Patient had X-rays with Contrast this admission? NComments: #[id number] THYRO PANEL SER FRZ 5ML [facility] Sywpmsqfya7953 [facility] HospitaltaliBellwood, [place], [address] GAP 6 (Normal) Range: 5-15 CO2 31.0 [...] 7-18 GLU 90 mg/dL (Normal) Range: 70-110 64-Vom-810363:15 Miscellaneous Lab Procedure Comments: Comments: #[id number] THYRO PANEL SER FRZ 5ML TIGERTest(s) Ordered: #927143 THY[facility] PANEL SER FRZ 5[facility] [address]ff[address]wnx[address] [place], [id number] [facility] Comments: TEST RESULT UNITS REFERENCE INTERVALComprehensive ThyroglobulinAnti-Thyroglobulin [...] ng/mL Not applicable ___ TESTING PERFORMED AT [facility]. ORIGINAL REPORT ON FILE IN LAB CONTAINS ADDITIONAL TEST SITE INFORMATION. 97-Gkr-225221:15 T4 Free Direct Comments: Has Patient had X-rays with Contrast this admission? NComments: #794015 THYRO PANEL SER FRZ 5ML [facility] Qqpeyedwno[address] [place], [place], [address] T4 FREE DIRECT 1.40 ng/dL (Normal) Range: 0.76-1.46 76-Hqp-342010:15 Thyroid Stim Hormone (TSH) Comments: Has Patient had X-rays with Contrast this admission? NComments: #790802 THYRO PANEL SER FRZ 5ML [facility] Fznmvyvcen60[address] [place], [address] TSH < 0.01 {uIU/mL} (Abnormal) Range: 0.358-3.74 64-Mqy-178904:08 Ferritin Comments: Comments: #[id number] CHROMIUM ROYAL BL PLS 2ML RTIs Patient Taking Vitamins or Folic Acid Supplements? [facility] [address] [place], [phone] FERRITIN 230 ng/mL (Normal) Range: 8-252 50-Ivr-797249:08 Folates, (Folic Acid) Comments: Comments: #833311 CHROMIUM ROYAL BL PLS 2ML RTIs Patient Taking Vitamins or Folic Acid Supplements? [facility] [address] [place], [address] FOLATES 40.30 ng/mL (Abnormal) Range: 3.1-17.5 65-Prj-433296:08 Magnesium Comments: Comments: #220219 CHROMIUM ROYAL BL PLS 2ML RTIs Patient Taking Vitamins or Folic Acid Supplements? [facility] Wp[address]mg[address] [place], [address] MG 2.0 mg/dL (Normal) Range: 1.8-2.4 76-Oqv-565185:08 Miscellaneous Lab Procedure Comments: Comments: #[id number] CHROMIUM ROYAL BL PLS 2ML RTTest(s) Ordered: #409747 CHROMIUM ROYAL BL PLS 2ML [facility] Pe[address]ldsflmp[address] [place], [address] MISC Comments: TEST RESULT UNITS REFERENCE INTERVALChromium, Plasma 1.9 ug/L 0.1 - 2.1 Detection Limit = 0.1 LAB (Normal) TESTING PERFORMED AT [facility]. ORIGINAL REPORT ON FILE IN LAB CONTAINS ADDITIONAL TEST SITE INFORMATION. TEST 38-Euy-916691:08 Phosphorus Comments: Comments: #[id number] CHROMIUM ROYAL BL PLS 2ML RTIs Patient Taking Vitamins or Folic Acid Supplements? [facility] Mqglphtxii0070 [place], [address] PHOS 3.2 mg/dL (Normal) Range: 2.5-4.9 59-Bln-606242:08 Vitamin A, Retinol Comments: Comments: #061259 CHROMIUM ROYAL BL PLS 2ML [facility] (refer to report for specific site)refer to report for address and phone number VIT A, [phone] 39 ug/dL (Normal) Range: 26-82 Comments: Performed at: [address] [id number] Director: Preston Zavala MD, Phone: [phone] 73-Opf-681969:08 Vitamin B12 525 pg/mL (Normal) Comments: [facility] [address] [place], [address] Range: 211-911 24-Ssp-855505:08 Zinc, Plasma or Serum Comments: Comments: #424228 CHROMIUM ROYAL BL PLS 2ML RTLab[facility] (refer to report for specific site)refer to report for address and phone number ZINC Plasma/Ser 53 ug/dL (Abnormal) Range: 56-134 Comments: Detection Limit = 5 83-Seh-429645:45 Basic Metabolic Profile (BMP) Comments: [facility] [address]kas[address] [place] [place], [address] GAP 9 (Normal) Range: 5-15 CO2 26.0 [...] 7-18 GLU 90 mg/dL (Normal) Range: 70-110 33-Swv-617064:45 T4 Free Direct Comments: [facility] [address] [place], [address] T4 FREE DIRECT 1.49 ng/dL (Abnormal) Range: 0.76-1.46 60-Zcp-301386:45 Thyroglobulin w/Anti-TG AB Comments: [facility] (refer to [...] oglobulin measured by Annel Shagufta ImmunometricAssayPerformed at: [address] [id number] Director: Chato Irwin PhD, Phone: [phone] ANTI-TG AB < 1.0 {IU/mL} (Normal) Range: 0.0-0.9 Comments: Thyroglobulin Antibody measured by Annel CoulterMethodology 09-Bkh-513714:45 Thyroid Stim Hormone (TSH) Comments: [facility] [address] [place], [address] TSH < 0.01 {uIU/mL} (Abnormal) Range: 0.358-3.74 00-Rjp-515045:33 IGP, Aptima HPV, Comments: Source.............Cervix;EndocervixNo. of containers..01 CYTYC Thin Prep VialPATIENT NOT FASTINGPERFORMED BY: =G [facility] Bvedszxbyy727 [facility] CenterBhavaniCedar City Hospital [id number] BY: WB [facility] rfx 16/18,45 rp Olhvstllab765 [facility] CenterbestWest Roxbury Va Medical CentererinUPMC [facility] [id number] HPV Aptima Negative (Normal) Comments: This test [...] bedistinguished in cases of atrophy.Z 01.Yvette Villasenor Boat Worker (ASCP) 32-Wxa-287298:56 HgA1C , Office (35337) HgA1C , Office 5.8 % (Normal) Range: 4.6 - 7.1 37-Fwe-231161:33 Thin prep Pap Comments: Source.............Cervix;EndocervixNo. of containers..01 CYTYC Thin Prep VialPATIENT NOT FASTINGPERFORMED BY: =G [facility] Vunauyxxqi839 [facility] CenterbestCape Cod and [facility] [id number] BY: WB [facility] (16275) (no STD rp E[address]zcj[address] [id number] Information: [id number] testing) Age Gdln ACOG Testing 30-65 (Normal) 1-Ssu-143810:10 Basic Metabolic Profile (BMP) Comments: [facility] [address] [place], [address] GAP 3 (Abnormal) Range: 5-15 CO2 29.0 [...] 7-18 GLU 91 mg/dL (Normal) Range: 70-110 3-Shv-161722:10 T4 Free Direct Comments: [facility] [address]uvuv[address] [place], [address] T4 FREE DIRECT 1.45 ng/dL (Normal) Range: 0.76-1.46 0-Iyi-813264:10 Thyroglobulin w/Anti-TG AB Comments: [facility] (refer to [...] quantitation is 0.1ng/mLThyr oglobulin measured by Annel [place] ImmunometricAssayPerformed at: - [facility] [address] [id number] Director: Chato Irwin PhD, Phone: [phone] ANTI-TG AB < 1.0 {IU/mL} (Normal) Range: 0.0-0.9 Comments: Thyroglobulin Antibody measured by Annel RegalBoxMethodology 0-Ped-485767:10 Thyroid Stim Hormone (TSH) Comments: [facility] [address]ztlu[address] [place], [place], [address] TSH < 0.01 {uIU/mL} (Abnormal) Range: 0.358-3.74 :04 CBC W/Diff, Automated Comments: [facility] [address]cykn[address] [place], [place], [address] ; [address] Absolute Lymph 1.25 {X10_3/ul} [...] 4.2-5.4 WBC 4.2 K/mm3 (Abnormal) Range: 4.4-11.0 :04 Comprehensive Metabolic Profil Comments: [facility] [address]ug[address]ochi[address] [place], [place], [address] GAP 6 (Normal) Range: 5-15 CO2 28.0 [...] 7-18 GLU 88 mg/dL (Normal) Range: 70-110 99-Gsg-974358:04 Hemoglobin A1c Comments: [facility] [address], [address] HGB A1C 5.6 % (Normal) Range: 4.2-6.3 94-Kag-587856:04 Lipid Profile Comments: [facility] Pdjb[address]em[address] [place], [place], [address] VLDL 12 mg/dL (Normal) Range: 5-40 LDL [...] 200-240 mg/dL Borderline >240 mg/dL High Risk 35-Uau-573652:04 Vitamin D,25 Hydroxy Comments: [facility] [address]um[address]kjyz[address] [place], [address] ; reviwe on 01/03 Vitamin D 25-OH 94.6 ng/mL (Normal) Comments: Vitamin D 25(OH) Status Range Deficiency <20 ng/mL (50nmol/L) Insuffciency 20 - 30 ng/mL (50 - 75 nmol/L) Sufficiency 30 - 100 ng/mL (75 - 250 nmol/L) Toxicity >100 ng/mL (>250 nmol/L) 6-Wdd-821200:51 CBC-Complete Blood Cnt No Diff Comments: [facility] [address] [place], [address] MPV 10.3 fL (Normal) Range: 6.2-12.0 PLT [...] 4.2-5.4 WBC 3.4 K/mm3 (Abnormal) Range: 4.4-11.0 02-Xey-711123:16 Basic Metabolic Profile (BMP) Comments: Has Patient had X-rays with Contrast this admission? NIs Patient on Heparin? [facility] U[address]ouxwlbki[address] [place], [address] GAP 4 (Abnormal) Range: 5-15 CO2 31.0 [...] 7-18 GLU 97 mg/dL (Normal) Range: 70-110 93-Oom-412860:16 T4 Free Direct Comments: Has Patient had X-rays with Contrast this admission? NIs Patient on Heparin? [facility] Daokkpjkob4688 [facility] [address]. [place], [place], [address] T4 FREE DIRECT 1.67 ng/dL (Abnormal) Range: 0.76-1.46 90-Mxl-559568:16 Thyroglobulin w/Anti-TG AB Comments: [facility] (refer to report for specific site)refer to report for address and phone number TG AB < 1.0 {IU/mL} (Normal) Range: 0.0-0.9 Comments: Thyroglobulin Antibody measured by Annel CoulterMethodology 12-Lys-299684:16 Thyroid Stim Hormone (TSH) Comments: Has Patient had X-rays with Contrast this admission? NIs Patient on Heparin? [facility] Xmialpjwcy[address] [place], [address] TSH < 0.01 {uIU/mL} (Abnormal) Range: 0.358-3.74 :33 T4 Total, Thyroxin Comments: [facility] Pl[address]brkehes[address] [place], [address] T4 THYROXIN 10.4 ug/dL (Normal) Range: 4.8-13.9 :33 Thyroid Stim Hormone (TSH) Comments: [facility] Q[address]wece[address]ajx[address] [place], [address] TSH < 0.01 {uIU/mL} (Abnormal) Range: 0.358-3.74 :05 HgA1C , Office (62740) HgA1C , Office 6.0 % (Normal) Range: 4.6 - 7.1 :05 Blood Glucose , Office (18918) Blood Glucose , Office 102 (Normal) :04 CBC W/Diff, Automated Comments: Test performed at:[facility] [address]leldzz[address] [place], [place] [address] Absolute Lymph 1.40 {X10_3/ul} (Normal) Range: 0.83-4.51 [...] 4.2-5.4 WBC 3.6 K/mm3 (Abnormal) Range: 4.4-11.0 76-Jsc-416806:04 Comprehensive Metabolic Profil Comments: CBCDLIPID CMP MIACREDR.PAVEL TSH T4F BMP THRYOGLULIN PANELTest performed at:[facility] Lxofskpuih4946 [place], [place] [address] GAP 9 (Normal) Range: 5-15 CO2 26.0 [...] Comments: Please note revised CREATININE reference range /22/2015. BUN 11 mg/dL (Normal) Range: 7-18 GLU 91 mg/dL (Normal) Range: 70-110 55-Tfu-105967:04 Lipid Profile Comments: DR.BONEZZI DO [facility] HEALTHCAREPAVEL TSH T4F BMP THRYOGLULIN PANELTest performed at:[facility] N[address]xul[address] Á[address]ztaliÁ[place] [address] VLDL 12 mg/dL (Normal) Range: 5-40 LDL [...] 200-240 mg/dL Borderline >240 mg/dL High Risk 48-Nnj-901361:04 Microalb:Creat Ratio,Random UR Comments: Test performed at:[facility] K[address]uktbookk[address] [place] [address] MALB:CREAT Test not performed {mg/g_CRE} (Normal) MICROALBUMIN,UR < 5.0 mg/L (Normal) UR CREAT 29.00 mg/dL (Normal) 69-Vnh-738597:04 T4 Free Direct Comments: DR.BONEZZI DO [facility] HEALTHCAREDRCHANDRIKA TSH T4F BMP THRYOGLULIN PANELTest performed at:[facility] Fvoqt[address]cmb[address] [place] [address] T4 FREE DIRECT 1.54 ng/dL (Abnormal) Range: 0.76-1.46 67-Ywn-681117:04 Thyroglobulin w/Anti-TG AB Comments: Test performed at:[facility] Z[address]imymombb[address] [place] [address] THYROGLOB < 0.1 ng/mL (Abnormal) Range: 1.5-38.5 [...] quantitation is 0.1ng/mLThyr oglobulin measured by Annel RegalBox ImmunometricAssayPerformed at: - [facility] Plsvpd0257 [place], [place] [id number] Director: Chato Irwin PhD, Phone: [phone] ANTI-TG AB < 1.0 {IU/mL} (Normal) Range: 0.0-0.9 Comments: Antithyroglobulin antibodies measured by Annel RegalBoxMethodology 66-Kpk-323495:04 Thyroid Stim Hormone (TSH) Comments: CBCDLIPID CMP MIATANK TSH T4F BMP THRYOGLULIN PANELTest performed at:[facility] Wvepvqvnen4366 [facility] [place], [place] [address] TSH < 0.01 {uIU/mL} (Abnormal) Range: 0.358-3.74 23-Bym-909649:16 Basic Metabolic Profile (BMP) Comments: Test performed at:[facility] Lccvpdhmjj1651 [facility] [place] [address] GAP 5 (Normal) Range: 5-15 CO2 30.0 [...] 7-18 GLU 91 mg/dL (Normal) Range: 70-110 38-Qxq-515621:16 T4 Total, Thyroxin Comments: Test performed at:[facility] Tsuwefbroy0580 [facility] [place] [address] T4 THYROXIN 10.2 ug/dL (Normal) Range: 4.8-13.9 69-Nft-902543:16 Thyroid Stim Hormone (TSH) Comments: Test performed at:[facility] [address] [place] [address] TSH < 0.01 {uIU/mL} (Abnormal) Range: 0.358-3.74 :38 HgA1C , Office (00240) HgA1C , Office 5.4 % (Normal) Range: 4.6 - 7.1 54-Bxj-298663:38 Blood Glucose , Office (19879) Blood Glucose , Office 107 (Normal) 53-Xiv-963220:14 Basic Metabolic Profile (BMP) Comments: Test performed at:[facility] [address] [place] [address] GAP 6 (Normal) Range: 5-15 CO2 28.0 [...] 7-18 GLU 89 mg/dL (Normal) Range: 70-110 34-Fro-874299:46 Basic Metabolic Profile (BMP) Comments: Test performed at:[facility] Nqfugvmqrq4500 [facility] [place], [place] [address] GAP 7 (Normal) Range: 5-15 CO2 28.0 [...] 7-18 GLU 84 mg/dL (Normal) Range: 70-110 75-Jwm-375124:46 T4 Free Direct Comments: Test performed at:[facility] [address] [place] [address] T4 FREE DIRECT 1.26 ng/dL (Normal) Range: 0.76-1.46 17-Hwo-670833:46 Thyroglobulin w/Anti-TG AB Comments: Test performed at:[facility] C[address] [place] [address] THYROGLOB 1.3 ng/mL (Abnormal) Range: 1.5-38.5 Comments: [...] quantitation is 0.1ng/mLThyr oglobulin measured by Annel RegalBox ImmunometricAssayPerformed at: - [facility] [id number] Director: Jarek Coon PhD, Phone: [phone] ANTI-TG AB < 1.0 {IU/mL} (Normal) Range: 0.0-0.9 Comments: Antithyroglobulin antibodies measured by Annel CoulterMethodology 35-Ytr-299484:46 Thyroid Stim Hormone (TSH) Comments: Test performed at:[facility] [address] [place], [place] [address] TSH 0.48 {uIU/mL} (Normal) Range: 0.358-3.74 51-Ldw-101189:25 Calcium Ionized Comments: Test performed at:[facility] I[address] [place], [place] [address] [place] 4804 4.9 mg/dL (Normal) Range: 4.5-5.6 Comments: Performed at: [address] [id number] Director: Jarek Coon PhD, Phone: [phone] 5-Jks-651326:32 Basic Metabolic Profile (BMP) Comments: Comments: #5412 THYROID ANTIBODIES SER RED OR GEL REF 1MLTest performed at:[facility] [address] [place] [address] GAP 8 (Normal) Range: 5-15 CO2 28.0 [...] 7-18 GLU 92 mg/dL (Normal) Range: 70-110 8-Chb-675352:32 Calcium Ionized Comments: Test performed at:[facility] [address]ej[address] [place] [address] [place] 4804 Test not performed mg/dL Comments: An unopened serum separator tube is required for this test.Contacted Lydia at your facility 11/14/14 (Normal) 7-Qxq-552323:32 Free T3 Comments: Comments: #6828 THYROID ANTIBODIES SER RED OR GEL REF 1MLTest performed at:[facility] Fukgrmslpm66[address] [place] [address] FREE T3 1.2 pg/mL (Abnormal) Range: 2.18-3.98 3-Gyg-499742:32 Miscellaneous Lab Procedure Comments: Comments: #4959 THYROID ANTIBODIES SER RED OR GEL REF 1MLTest(s) Ordered: THYROID ABTest performed at:[facility] [address]bjaim[address] [place] [address] [facility] Comments: TEST RESULT UNITS REF INTERvalThyroid Antibodies Thyroid Peroxidase(TPO) Ab 10 IU/mL 0 - 34 Thyroglobulin, Antibody <1.0 IU/mL 0.0 - 0.9Please LAB (Normal) Note:Low ositive Thyroglobulin antibodies are seen in a portionof the asymptomatic populations.Antithyroglobulin antibodies measured by Annel RegalBoxMethodology TEST TESTING PERFORMED AT [facility]. ORIGINAL REPORT ON FILE IN LAB CONTAINS ADDITIONAL TEST SITE INFORMATION. 4-Cgb-302565:32 T4 Free Direct Comments: Comments: #[id number] THYROID ANTIBODIES SER RED OR GEL REF 1MLTest performed at:[facility] [id number] [place] [address] T4 FREE DIRECT 0.30 ng/dL (Abnormal) Range: 0.76-1.46 [id number] Thyroglobulin w/Anti-TG AB Comments: Test performed at:[facility] [id number] [place] [address] THYROGLOB 5.9 ng/mL (Normal) Range: 1.5-38.5 Comments: [...] quantitation is 0.1ng/mLThyr oglobulin measured by Annel [place] [employer] ANTI-TG AB < 1.0 {IU/mL} (Normal) Range: 0.0-0.9 Comments: Antithyroglobulin antibodies measured by Annel [facility] [id number] Thyroid Stim Hormone (TSH) Comments: Comments: #[id number] THYROID ANTIBODIES SER RED OR GEL REF 1MLTest performed at:[facility] [id number] [place] [address] TSH 28.60 {uIU/mL} (Abnormal) Range: 0.358-3.74 [id number]-[id number]:26 Ferritin ([id number]) Comments: PATIENT NOT FASTINGPERFORMED BY: [facility] [id number]ublin [place] [id number] Ferritin, Serum 55 ng/mL (Normal) Range: 15-150 [id number]-Qlp-[id number]:26 CALCIFIDIOL ([id number]) VIT D 25 Comments: PATIENT NOT FASTINGPERFORMED BY: [facility] [id number] [facility] [place] [id number] Vitamin D, 25-Hydroxy 56.2 ng/mL (Normal) Range: 30.0-100.0 Comments: Vitamin D deficiency has been defined by the [place] ofMedicine and an Endocrine Society practice guideline as alevel of serum 25-OH vitamin D less than 20 ng/mL (1,2).The Endocrine Society went on to further define vitamin Dinsufficiency as a level between 21 and 29 ng/mL (2).1. IOM ([place] of Medicine). 2010. Dietary reference intakes for calcium and D. [place]: The National Academies Press.2. Domingo MF, Gregor NC, Joaquin GARZA, et al. Evaluation, treatment, and prevention of vitamin D deficiency: an Endocrine Society clinical practice guideline. JCEM. 2010; 96(7):1911-30. 76-Cxk-912237:26 METABOLIC PANEL, COMPREHENSIVE Comments: PATIENT NOT FASTINGPERFORMED BY: [facility] Fvwatq5300 Rosa RoadDublin [place] [id number] (17345) ALT (SGPT) 18 [iU]/L (Normal) Range: 0-32 [...] Glucose, Serum 94 mg/dL (Normal) Range: 65-99 48-Tga-256663:26 LIPID PANEL (01543) Comments: PATIENT NOT FASTINGPERFORMED BY: [facility] CenterShvter6100 [facility] [id number] LDL/HDL Ratio 1.5 {ratio_units} (Normal) Range: 0.0-3.2 [...] Cholesterol, Total 223 mg/dL (Abnormal) Range: 100-199 79-Rpj-809430:26 CBC with auto diff Comments: PATIENT NOT FASTINGPERFORMED BY: ISGN CorporationUp [facility] System6370 [facility] [id number] Information: [id number] (39429) Immature Grans (Abs) 0.0 {x10E3/uL} (Normal) Range: [...] 3.77-5.28 WBC 7.3 {x10E3/uL} (Normal) Range: 3.4-10.8 08-Amn-305981:26 Hemoglobin Glyclated (HGB A1C) Comments: PATIENT NOT FASTINGPERFORMED BY: [facility] [id number] (90025) Hemoglobin A1c 6.0 % (Abnormal) Range: 4.8-5.6 Comments: . Increased risk for diabetes: 5.7 - 6.4 Diabetes: >6.4 Glycemic control for adults with diabetes: <7.0 :29 Calcium,Total Comments: ADDED TSH, FT4 10/21/14Test performed at:[facility] [address] [place] [address] CA 8.8 mg/dL (Normal) Range: 8.5-10.1 3-Hmx-931287:29 T4 Free Direct Comments: ADDED TSH, FT4 10/21/14Test performed at:[facility] [address] [place] [address] T4 FREE DIRECT 0.59 ng/dL (Abnormal) Range: 0.76-1.46 6-Hkq-405798:29 Thyroid Stim Hormone (TSH) Comments: ADDED TSH, FT4 10/21/14Test performed at:[facility] [address] [place] [address] TSH 17.30 {uIU/mL} (Abnormal) Range: 0.358-3.74 43-Aks-190837:36 Calcium,Total Comments: Test performed at:[address] [place] [address] CA 8.7 mg/dL (Normal) Range: 8.5-10.1 47-Qbw-00444:04 Calcium,Total Comments: Test performed at:[facility] [address] [place] [address] CA 7.9 mg/dL (Abnormal) Range: 8.5-10.1 80-Cxh-614839:29 Bedside Glucose Comments: Test performed at:[address] [address] BEDSIDE GLU 105 mg/dL (Normal) Range: 70-110 Comments: No Action RequiredMANAGEMENT OF PATIENT CARE PER NURSING PROTOCOL 39-Wws-425334:27 Bedside Glucose Comments: Test performed at:[place] [id number] BEDSIDE GLU 105 mg/dL (Normal) Range: 70-110 Comments: No Action RequiredMANAGEMENT OF PATIENT CARE PER NURSING PROTOCOL 41-Xka-885629: THYROID (TOTAL/LOBE) See Note (Normal) Comments: Test performed at:[facility] [address] [place] [address] 26 Comments: Patient: JODI MOMIN : 1950 (64/F) Acct Num: [id number] Phys: Paras CHANDRA,Lesa Unit Num: [id number] Loc: [facility] Specimen: [id number] Received: 09/30/14 - 1630 Spec Type: THYR OID TISSUES TISSUES: COMMENT IHC ([id number]) supports the above diagnosis. Case has been reviewed in consultation with Dr. Philippe who concurs with the abovediagnosis. IDC:MARISA Refe rence is made to the patient's left thyroid lobe and isthmectomy from 09/10/14 ([id number]) in which papillary thyroid carcinoma was identified. [...] and 11 containing most inferior portion). / MARISA: 10/01/14 TC:0 CPT: 58107, 49022, 42578 HEADER OPER ATION: Thyroidectomy PRE-OPERATIVE DIAGNOSIS: Malignant [...] is in compliance w ith College of [place] Pathology (CAP) Cancer Protocols Checklist and [place] Joint Committee on Cancer (AJCC), Staging Manual, 7th ed. AM: 10/02/14 Signed [facility] 10/03/14 <signature on file> 12-Roi-039242:53 Bedside Glucose Comments: Test performed at:[facility] [address] [place], [place] [id number] BEDSIDE GLU 86 mg/dL (Normal) Range: 70-110 Comments: MANAGEMENT OF PATIENT CARE PER NURSING PROTOCOL 79-Gwo-35045:00 IMMUNOHISTOCHEMISTRY See Note (Normal) Comments: Test performed at:[facility] [address] [place], [place] [address] Comments: Patient: JODI MOMIN : 1950 (64/F) Acct Num: [id number] Phys: Lesa Crain MD Unit Num: [id number] Loc: [facility] Specimen: [id number] Received: 10/02/141416 Spec Type: IMM ONEL TISSUES TISSUES: SPECIMEN INFORMATION: Tissue Source: Right thyroid lobectomy Clinical Info: Malignant neoplasm of thyroid Specimen Number: [id number] CPT code: 18152 x1, 82529 x3 METHODOLOGY: Deparaffinized sections of prefer/formalin-fixed tissue or PAP/DQ stained slides are incubated with monoclonal/polyclonal antibodies/oligonucleotide probes. Localization is m canelo via biotin free immunoperoxidase method. Appropriate controls are performed and reacted as expected. Results on target cell population are indicated in the following table: RESULTS: ANTIBODY / CLONE RESULT CK19 (B170/A53-B/A2.26) positive HBME1 (HBME-1) positive GAL3 (9C4) positive CD56 (NE9218/123C3.D5) negativ e These tests were developed and their performance characteristics determined by [facility]. They may not have been cleared or approved by the U.S. Food and Drug Administr [facility]. The FDA has determined that such clearance or approval is not necessary. INTERPRETATION: Right thyroid lobectomy: Papillary microcarcinoma. AM: 10/03/14 PHYSICIAN AND INSTITUTROCK N [address] [address] Signed [facility] 10/03/14 <signature on file> 2-Sea-837416:12 Thyroglobulin w/Anti-TG AB Comments: Test performed at:[facility] [address] [place] [address] THYROGLOB 57.0 ng/mL Range: 1.5-38.5 (Abnormal) Comments: According to the National Academy of Clinical Biochemistry,the reference interval for Thyroglobulin (TG) should berelated to euthyroid patients and not for patients whounderwent thyroidectomy. TG refere nce intervals for thesepatients depend on the residual mass of the thyroid tissueleft after surgery. Establishing a post-operative baselineis recommended. The assay limit of quantitation is 0.1ng/mLThyr oglobulin measured by [employer] ImmunometricAssayPerformed at: - [facility] [address] [place], [place] [id number] Director: Jarek Coon PhD, Phone: [phone] ANTI-TG AB < 1.0 {IU/mL} Range: 0.0-0.9 (Normal) Comments: Antithyroglobulin antibodies measured by [employer] THYROID See Note (Normal) Comments: Test performed at:[facility] [address] [place] [address] 415:23 (TOTAL/LOBE) Comments: Patient: JODI MOMIN : 1950 (64/F) Acct Num: [id number] Phys: Lesa Crain MD Unit Num: [id number] Loc: [facility] Specimen: [id number] Received: 09/10/14 - 5 Spec Type: THY ROID TISSUES TISSUES: COMMENT [...] summary is in compliance with College of [place] Pathology (CAP) Cancer Protocols Checklist and [place] Joint Committee on Cancer (AJCC), Staging Manual, 7th ed. IHC (RF15- 7) supports the above diagnosis and highlights t he multifocal nature of the disease process. Reference is made to the patient's left thyroid nodule FNA and isthmic nodule FNA ([id number]) in which atypical follicular cells were identified. Case has been reviewed in consultation with Dr. Philippe who concurs with the abovediagnosis. IDC:SJ FROZEN SECTION DIAGNOSIS Left thyroid and isthmus: Multinodular goiter with cellular follicular lesio n and with mild atypia. SJ:love 09/10/14 GROSS DESCRIPTION Received fresh for frozen [...] the left thyroi d lobe, a small cardona solid nodule is noted measuring 0.5 cm [...] inferior portion), 13-1 5 - isthmus. / SJ: 09/10/14 TC:0 CPT: 13217 HEADER OPERATION: Left thyroid lobectomy, and isthmusectomy PRE-OPERATIVE DIAGNOSIS: Neoplasm of uncertain behavior of other and unspecified end ocrine gland, left thyroid nodule TISSUE SUBMITTED: Left thyroid and isthmus (FS) MICROSCOPIC DIAGNOSIS Left thyroid lobe and isthmus, lobectomy and isthmusectomy: Papillary thyroid car cinoma, multifocal. Adenomatoid colloid nodule. Colloid nodules. See Comment for Complete Cancer Summary. AM: 09/15/14 Signed Ham Jo Ann 09/16/14 <signature on file> 44-Qmp-821767:02 Bedside Glucose Comments: Test performed at:[facility] [address] [facility] [place] [address] BEDSIDE GLU 90 mg/dL (Normal) Range: 70-110 Comments: No Action RequiredMANAGEMENT OF PATIENT CARE PER NURSING PROTOCOL; ADDENDA: Hospitol :0 IMMUNOHISTOCHEMISTRY See Note (Normal) Comments: Test performed at:[facility] [address]tell[address] [facility] [place] [address] 0 Comments: Patient: JODI MOMIN : 1950 (64/F) Acct Num: [id number] Phys: Lesa Crain MD Unit Num: [id number] Loc: [facility] Specimen: [id number] Received: 09/12/141207 Spec Type: IMMUN O TISSUES TISSUES: SPECIMEN INFORMATION: Tissue Source: Left thyroid lobe, lobectomy Clinical Info: Left thyroid nodule Specimen Number: [id number] CPT code: 25141 x12 METHODO LOGY: Deparaffinized sections of prefer/formalin-fixed tissue or PAP/DQ stained slides are incubated with monoclonal/polyclonal antibodies/oligonucleotide probes. Localization is made via biotin free immunoperoxidase method. Appropriate controls are performed and reacted as expected. Results on target cell population are indicated in the following table: RESULTS: ANTIBODY / CLONE RESULT Block 4 CK19 (B170/A53-B/A2.26) positive HBME1 (HBME-1) positive GAL3 (9C4) positive CD56 (KT3935/123C3.D5) negative Block 12 CK19 (B170/A53-B/A2.26) positive HBME1 (HBME-1) positive GAL3 (9C4) positive CD56 (GP0384/123C3.D5) negative Block 14 CK19 (B170/A53-B/A2.26) negative HBME1 (HBME-1) negative GAL3 (9C4) negative CD56 (RQ5175/123C3.D5) positive These tests were developed and their performance characteristi cs determined by [facility]. They may not have been cleared or approved by the U.S. Food and Drug Administration. The FDA has determined that such clearance or approval is n ot necessary. INTERPRETATION: Left thyroid lobe and isthmus: Papillary thyroid carcinoma. Case has been reviewed in consultation with Dr. Philippe who concurs with the abovediagnosis. IDC:MARISA Oneil M:love 09/15/14 PHYSICIAN AND INSTITUTION [address] [address] Signed [facility] 09/15/14 <signature on file> 70-Hnm-941856:26 Basic Metabolic Profile (BMP) Comments: Test performed at:[facility] [address] [place], [place] [id number] GAP 5 (Normal) Range: 5-15 CO2 31.0 [...] 7-18 GLU 93 mg/dL (Normal) Range: 70-110 59-Elz-730548:26 CBC W/Diff, Automated Comments: Test performed at:[facility] [address] [facility] [place], [place] [address] Absolute Lymph 1.89 {X10_3/ul} Range: 0.83-4.51 (Normal) [...] (FLUID) See Note (Normal) Comments: Test performed at:[facility] [address] [facility] [place] [address] 0 Comments: Patient: JODI MOMIN : 1950 (64/F) Acct Num: [id number] Phys: Paras CHANDRA,Lesa Unit Num: [id number] Loc: [place] Specimen: [id number] Received: 08/26/14 - 1428 Spec Type: ASP O UT TISSUES TISSUES: [...] fluid and the remainder is added to forma lorri for cell block. Submitted for cytology study. B - Received is 1.0 ml of reddish fluid designated isthmic nodule, FNA. Six imprints and four paps are made from the submitted fluid and the remain santi is added to formalin for cell block. Submitted for cytology study. / AM: 08/26/14 TC:? CPT: 80663 x2, 81558 x2, 83816 x2 CYTOLOGY STUDY A - The specimen [...] 2 - Isthmic nodule FNA Signed [facility] 08/27/14 <signature on file> 30-Ohd-312048:31 Hemoglobin Glyclated (HGB Comments: PATIENT NOT FASTINGPERFORMED BY: [facility]6370 [facility] [id number] Information: [id number] A1C) (15463) Hemoglobin A1c 5.9 % (Abnormal) Range: 4.8-5.6 Comments: . Increased risk for diabetes: 5.7 - 6.4 Diabetes: >6.4 Glycemic control for adults with diabetes: <7.0 79-Dfg-586615:31 T3, FREE (TRIDOTHYRONINE) (86121) Comments: PATIENT NOT FASTINGPERFORMED BY: [facility]6370 [facility] [id number] Triiodothyronine,Free,Serum 2.6 pg/mL (Normal) Range: 2.0-4.4 33-Thn-718336:31 T4, FREE (THYROXINE) (44693) Comments: PATIENT NOT FASTINGPERFORMED BY: [facility]6[address] [facility] [id number] T4,Free(Direct) 1.29 ng/dL (Normal) Range: 0.82-1.77 38-Fkm-035507:31 TSH (06357) Comments: PATIENT NOT FASTINGPERFORMED BY: [place] 22437[address] [facility] [id number] TSH 0.451 {uIU/mL} (Normal) Range: 0.450-4.500 :46 [...] (Abnormal) Range: 11.7-14.9 :20 HgA1C , Office (35924) HgA1C , Office 6.2 % (Normal) Range: 4.6 - 7.1 :20 Blood Glucose , Office (20270) Blood Glucose , Office 100 (Normal) Comments: [...] CHOL 186 mg/dL (Normal) Comments: <200 mg/dL Hcddeolcb171-344 mg/dL Borderline>240 mg/dL High Risk :46 UAC Comments: How was Urine Obtained? CLEAN CATCH [...] (Normal) UCLAR Clear (Normal) UCOL Yellow (Normal) 38-Nio-805335:13 HgA1C , Office (27953) HgA1C , Office 5.8 % (Normal) Range: 4.6 - 7.1 14-Tve-993398:13 Blood Glucose , Office (12500) Blood Glucose , Office 170 (Normal) 0-Qgi-064860:39 TSH (33759) Comments: PATIENT WAS FASTINGPERFORMED BY: [facility] CenterJtkpgm9513 [facility] [id number] TSH 0.399 {uIU/mL} (Abnormal) Range: 0.450-4.500 7-Ymb-624719:39 LIPID PANEL (09879) Comments: copy of labs to Dr. mcnair; PATIENT WAS FASTINGPERFORMED BY: [facility] Vuxfhw4114 [facility] [id number] LDL/HDL Ratio 1.1 {ratio_units} (Normal) Range: 0.0-3.2 LDL Cholesterol Calc 93 mg/dL (Normal) Range: 0-99 VLDL Cholesterol Janae 12 mg/dL (Normal) Range: 5-40 HDL Cholesterol 88 mg/dL (Normal) Comments: According to ATP-III Guidelines, HDL-C >59 mg/dL is considered anegative risk factor for CHD. Cholesterol, Total 193 mg/dL (Normal) Range: 100-199 Triglycerides 59 mg/dL (Normal) Range: 0-149 9-Faz-344420:39 CALCIFIDIOL (84490) VIT D 25 Comments: PATIENT WAS FASTINGPERFORMED BY: ISGN CorporationSaint Luke'[facility] Hospital Yfvobo6187 [facility] [id number] Vitamin D, 25-Hydroxy 36.2 ng/mL (Normal) Range: 30.0-100.0 Comments: Vitamin D deficiency has been defined by the [place] ofMedicine and an Endocrine Society practice guideline as alevel of serum 25-OH vitamin D less than 20 ng/mL (1,2).The Endocrine Society went on to further define vitamin Dinsufficiency as a level between 21 and 29 ng/mL (2).1. IOM ([place] of [employer]). 2010. Dietary reference intakes for calcium and D. [place]: The National Academies Press.2. Domingo MF, Gregor NC, Moses-Carlos Manuel GARZA, et al. Evaluation, treatment, and prevention of vitamin D deficiency: an Endocrine Society clinical practice guideline. JCEM. 2010; 96(7):1911-30. 7-Dln-002168:39 MICROALBUMIN: CREATININE RATIO Comments: PATIENT WAS FASTINGPERFORMED BY: [facility]6370 [facility] [id number] (22718) AND (95431) Microalb/Creat Ratio 10.5 {mg/g_creat} (Normal) Range: 0.0-30.0 Microalbumin, Urine 1.3 ug/mL (Normal) Range: 0.0-17.0 Creatinine, Urine 12.4 mg/dL (Abnormal) Range: 15.0-278.0 :39 METABOLIC PANEL, COMPREHENSIVE Comments: PATIENT WAS FASTINGPERFORMED BY: [employer] Smart MuseumReplaced by [facility] [id number] (02485) ALT (SGPT) 26 [iU]/L (Normal) Range: 0-32 [...] Glucose, Serum 103 mg/dL (Abnormal) Range: 65-99 6-Wtz-519377:39 CBC WITH MANUAL DIFF Comments: PATIENT WAS FASTINGPERFORMED BY: [employer] [id number] Information: SRC: URINE [id number] CC:[id number] (13499) Immature Grans (Abs) 0.0 {x10E3/uL} (Normal) Range: [...] Range: 3.4-10.8 :17 Blood Glucose , Office (32736) Blood Glucose , Office 109 (Normal) Comments: fasting :17 HgA1C , Office (95203) HgA1C , Office 6.0 % (Normal) Range: 4.6 - 7.1 6-Grq-493675:57 Blood Glucose , Office (38619) Blood Glucose , Office 93 (Normal) :57 HgA1C , Office (99229) HgA1C , Office 6.0 % (Normal) Range: 4.6 - 7.1 :30 CBC, Platelets & Auto Diff Comments: today; PATIENT NOT FASTINGPERFORMED BY: [facility] CenterLxdmdm1152 [facility] [id number] Information: [id number] (98043) Immature Grans (Abs) 0.0 {x10E3/uL} (Normal) Range: [...] (Normal) Range: 4.0-10.5 :52 HgA1C , Office (63823) HgA1C , Office 5.9 % (Normal) Range: 4.6 - 7.1 :52 Blood Glucose , Office (39387) Blood Glucose , Office 126 (Normal) 96-Dnm-251869:21 BILAT SCRN DIGITAL & CAD Radiology Report [...] Shrestha M.D.January 18, 2013 at 1:47:41 PM [id number] Signed GP/GP If you are the referring physi celio and would like to consult with theradiologist who provided this interpretation, please contact Amy Carpio at [phone]. If this radiologist is unavailable, youwill be directed to an other radiologist to assist. If you are a patient with a question regarding this report, pleasecontactyour referring physician directly. Professional Interpretation Provided By: [employer], Phone , These documents contain legally protected [...] pg/mL Range: 211-911 11:51 (Normal) Comments: Effective 201218-Jan-201324-Gmu-192718:51 CBCMD ANC 1.8 3/uL (Abnormal) Range: 2.0-7.7 [...] 4.2-5.4 WBC 3.4 {k/mm3} (Abnormal) Range: 4.4-11.0 :51 CMP GAP 6 (Normal) Range: 5-15 CL [...] CHOL 196 mg/dL (Normal) Comments: <200 mg/dL Wxwprhudh116-341 mg/dL Borderline>240 mg/dL High Risk HDL 74 mg/dL (Normal) Comments: Reference RangeHDL <40 mg/dL Low HDL CholesterolHDL >or= 60 mg/dL High HDL Cholesterol TRIG 69 mg/dL (Normal) Comments: Serum Triglycerides Reference IntervalNormal <150 mg/dLBorderline high 150 - 199 mg/dLHigh 200 - 499 mg/ dLVery High > or = 500 mg/dL 28-Yof-518712:51 MG 1.9 mg/dL (Normal) Range: 1.8-2.4 74-Jgl-897476:51 MIACRE MIALB 20.8 mg/L (Normal) tMICROCREAT 12.6 {mg/g_CRE} (Normal) CREU 163.8 mg/dL (Normal) :51 PHOS 3.2 mg/dL (Normal) Range: 2.5-4.9 :51 DIAMANTE 46 ug/dL (Normal) Range: 18-77 Comments: Performed at: - [facility] [id number] Director: Preston Zavala MD, Phone: [phone] :[phone] VITD 107.7 ng/mL (Normal) Comments: Vitamin D 25(OH) Status RangeDeficiency <20 ng/mL (50nmol/L)Insufficiency 20 - 30 ng/mL (50 - 75 nmol/L)Sufficiency 30 - 100 ng/mL (75 - 250 nm ol/L)Toxicity >100 ng/mL (250 nmol/L)Effective 2012:51 ZI 77 ug/dL (Normal) Range: 56-134 Comments: Detection Limit = 5 :26 Blood Glucose , Office (66728) Blood Glucose , Office 115 (Normal) 09-Jxr-915291:26 HgA1C , Office (32523) HgA1C , Office 5.7 % (Normal) Range: 4.6 - 7.1 :53 HgA1C , Office (97544) HgA1C , Office 5.8 % (Normal) Range: 4.6 - 7.1 :53 Blood Glucose , Office (81192) Blood Glucose , Office 103 (Normal) :30 [...] 200-240 mg/dL Borderline >240 mg/dL High Risk 95-Qff-048772:30 LIVER BID 0.14 mg/dL (Normal) Range: 0.00-0.30 BIT 0.50 mg/dL (Normal) Range: 0.00-1.00 ALT 31 U/L (Normal) Range: 12-78 ALK 64 U/L (Normal) Range: 50-136 AST 14 U/L (Abnormal) Range: 15-37 ALB 3.3 g/dL (Abnormal) Range: 3.4-5.0 TPROT 6.8 g/dL (Normal) Range: 6.4-8.2 :30 PTHIN 55 pg/mL (Normal) Range: 14-72 :30 VITD 42.8 ng/mL (Normal) Range: 30.0-100.0 Comments: Vitamin D deficiency has been defined by the [place] ofMedicine and an Endocrine Society practice guideline as alevel of serum 25-OH vitamin D less than 20 ng/mL (1,2).The Endocrine Society went on to further define vitamin Dinsufficiency as a level between 21 and 29 ng/mL (2).1. IOM ([place] of Medicine). 2010. Dietary reference intakes for calcium and D. [place]: The National Academies Press.2. Domingo MF, Gregor SMITH, Joaquin GARZA, et al. Evaluation, treatment, and prevention of vitamin D deficiency: an Endocrine Society clinical practice guideline. JCEM. 2010; 96(7): 1911-30.Performed at: [facility] [address] [id number] Director: Jarek Coon PhD, Phone: [phone] 2-Nnq-976708:16 Blood Glucose , Office (21238) Blood Glucose , Office 127 (Normal) 9-Wmd-825238:09 HgA1C , Office (95463) HgA1C , Office 5.8 % (Normal) Range: [...] :12 FOL 32.70 ng/mL (Abnormal) Range: 3.1-17.5 : HOMO 8.0 umol/L (Normal) Range: 3.2-10.7 :12 [...] ug/dL 440 - 860 TESTING PERFORMED AT [facility]. ORIGINAL R EPORT ON FILE IN LAB CONTAINS ADDITIONAL TEST SITE INFORMATION. :12 PHOS 3.9 mg/dL (Normal) Range: 2.5-4.9 :12 PTHIN 94 pg/mL (Abnormal) Range: 14-72 :12 TSH 0.30 {uIU/mL} (Abnormal) Range: 0.358-3.74 :12 DIAMANTE 39 ug/dL (Normal) Range: 18-77 Comments: Performed at: - [facility] [address] [id number] Director: Monserrat Dai MD, Phone: [phone] at: [facility] [place] [id number] Director: Preston Zavala MD, Phone: [phone] :[phone] VITD 47.8 ng/mL (Normal) Range: 30.0-100.0 Comments: Vitamin D deficiency has been defined by the [place] ofGalion Community Hospitalcine and an Endocrine Society practice guideline as alevel of serum 25-OH vitamin D less than 20 ng/mL (1,2).The Endocrine Society went on to further define vitamin Dinsufficiency as a level between 21 and 29 ng/mL (2).1. IOM ([place] of Medicine). 2010. Dietary reference intakes for calcium and D. [place]: The National Academies Press.2. Domingo MF, Gregor NC, Joaquin GARZA, et al. Evaluation, treatment, and prevention of vitamin D deficiency: an Endocrine Society clinical practice guideline. JCEM. 2010; 96(7):1911-30. :42 HgA1C , Office (14076) HgA1C , Office 5.9 % (Normal) Range: 4.6 - 7.1 :42 Blood Glucose , Office (26562) Blood Glucose , Office 119 (Normal) :52 CKMB CPKMB 1.9 ng/mL (Normal) Range: 0.0-5.0 Comments: CK-MB and RI Interpretation MB Relative Index Non-AMI <or= 5 NA Indeterminate > 5 <or= 4 AMI > 5 > 4 CPK 129 U/L (Normal) Range: 26-192 89-Hed-891949:52 CPKISO tCKBB 0 % (Normal) Comments: Performed at: [address] [id number] Director: Monserrat Dai MD, Phone: [phone] tCKMB 0 % (Normal) Range: 0-3 tCKMACI 0 % (Normal) tCKMACII 0 % (Normal) tCKMM 100 % (Normal) Range: 97-100 tCPK 123 U/L (Normal) Range: 24-173 8-Msx-479079:30 HgA1C , Office (07192) HgA1C , Office 5.9 % (Normal) Range: 4.6 - 7.1 :22 Blood Glucose , Office (45503) Blood Glucose , 85 (Normal) Office :06 VIT D,25 52561 45.3 ng/mL (Normal) Range: 30.0-100.0 Comments: Vitamin D deficiency has been defined by the [place] ofMedicine and an Endocrine Society practice guideline as alevel of serum 25-OH vitamin D less than 20 ng/mL (1,2).The Endocrine Society went on to further define vitamin Dinsufficiency as a level between 21 and 29 ng/mL (2).1. IOM ([place] of Medicine). 2011. Dietary reference intakes for calcium and D. [place]: The National Academies Press.2. Domingo MF, Gregor NC, Joaquin GARZA, et al. Evaluation, treatment, and prevention of vitamin D deficiency: an Endocrine Society clinical practice guideline. JCEM. 2010; 96(7): 1911-30.Performed at: [address] [id number] Director: Monserrat Dai MD, Phone: [phone] 74-Yxz-905462:54 DEXA BONE DENSITY STUDY ([place]) Radiology Report [...] radiologist regarding this report, please call our [id number] line @ Dictated on 09/20/11 1459 by Matthew CHANDRA,WilianrieleTranscribed on 09/20/11 1624 by ITS IMPORTSign by Aaron Stanley MD on 09/20/11 8845 Sign by: Aaron Shrestha MD : INR [...] 4.2-5.4 WBC 3.9 K/mm3 (Abnormal) Range: 4.4-11.0 4-Chz-602118:45 COMP METABOLIC Comments: DR. MCNAIR ORDERED LIPID [...] DOMO VITD PTHTHIAMINE TSH ZINC Range: 8-252 7-Lvz-507651:45 IRON+TIBC Comments: DR. MCNAIR ORDERED LIPID LIVERDR. BONEZZI ORDERED MICRO CREA, CMP LIPID CBCMDDR. CHLYSTA ORDERED CBC CMP B12 FO IBC LIPID DOMO VITD PTHTHIAMINE TSH ZINC IRON 56 ug/dL (Normal) Range: 50-170 IRON SATURATION 15.9 % (Normal) Range: 15.0-55.0 TIBC 352 ug/dL (Normal) Range: 250-450 3-Mal-814635:45 LIPID Comments: DR. MCNAIR ORDERED LIPID LIVERDR. [...] CHOL 173 mg/dL (Normal) Comments: <200 mg/dL Avofkldjo236-843 mg/dL Borderline>240 mg/dL High Risk 0-Pqq-736800:45 MICROALB:CRE UR Comments: DR. MCNAIR ORDERED LIPID LIVERDR. BONEZZI ORDERED MICRO CREA, CMP LIPID CBCMDDR. CHLYSTA ORDERED CBC CMP B12 FO IBC LIPID DOMO VITD PTHTHIAMINE TSH ZINC MALB:CREAT <TEST NOT PERFORMED> {mg/g_CRE} (Normal) MICROALBUMIN,UR < 5.0 mg/L (Normal) UR CREAT 41.2 mg/dL (Normal) 4-Zos-638118:45 PRO TIME Comments: DR. MCNAIR ORDERED LIPID LIVER PT INRDR. BONEZZI ORDERED MICRO CREA, CMP LIPID CBCMDDR. CHLYSTA ORDERED CBC CMP B12 FO IBC LIPID DOMO VITD PTHTHIAMINE TSH ZINC INR 1.8 (Normal) PROTIME 18.5 s (Abnormal) Range: 9.1-11.7 4-Bie-669478:45 PTH,Intact 83 pg/mL (Abnormal) Comments: DR. MCNAIR [...] TSH ZINC Range: 0.358-3.74 :45 VIT B1 543420 265.0 nmol/L (Abnormal) Comments: DR. MCNAIR ORDERED LIPID LIVERDR. BONEZZI ORDERED MICRO CREA, CMP LIPID CBCMDDR. CHLYSTA ORDERED CBC CMP B12 FO IBC LIPID DOMO VITD PTHTHIAMINE TSH ZINC Range: 66.5-200.0 :45 VIT D,25 15346 52.1 ng/mL (Normal) Comments: DR. MCNAIR ORDERED LIPID LIVERDR. BONEZZI ORDERED MICRO CREA, CMP LIPID CBCMDDR. CHLYSTA ORDERED CBC CMP B12 FO IBC LIPID DOMO VITD PTHTHIAMINE TSH ZINC Range: 32.0-100.0 Comments: Recent studies consider the lower limit of 32.0 ng/mL to dorie threshold for optimal health.Wayne SANCHEZ. J Nutr. 2004;135(2):317-22. :45 ZINC, 1800 99 ug/dL (Normal) Comments: DR. MCNAIR ORDERED LIPID LIVERDR. BONEZZI ORDERED MICRO CREA, CMP LIPID CBCMDDR. CHLYSTA ORDERED CBC CMP B12 FO IBC LIPID DOMO VITD PTHTHIAMINE TSH ZINC Range: 70-150 Comments: Detection Limit = 5Performed at: [facility] [address] [id number] Director: Monserrat Dai MDPerformed at: - [facility] [address] [id number] Director: Preston Zavala MD 87-Qdc-760842:15 INR ISTAT 1.70 (Normal) 24-Gql-782388:15 PROTIME ISTAT 20.1 {SEC} (Normal) 04-Cfi-988010:10 VIT B1 872987 246.3 nmol/L (Abnormal) Range: 66.5-200.0 :10 VIT D,25 54201 52.4 ng/mL (Normal) Range: 32.0-100.0 Comments: Recent studies consider the lower limit of 32.0 ng/mL to dorie threshold for optimal health.Wayne SANCHEZ. J Nutr. 2004;135(2):317-22. :10 ZINC, 1800 87 ug/dL (Normal) Range: 70-150 Comments: Detection Limit = 5Performed At: [facility] [address] [place], [place] [id number] At: [facility] [address] [place], [place] [id number] 5-Rgl-031320:46 L/S SPINE,MIN 4 VIEWS (MT) Radiology Report See Note (Normal) Comments: Exam Number: [id number] LUMBOSACRAL SPINE AP, lateral and oblique views were obtained. HISTORYThis is a 59-year-old female patient with history of low back painfollowing a fall. FINDINGSThere is a mild d egree of disc space narrowing at the L4-L5 level witha moderate degree of disc space narrowing at the L3-L4 and L5-X1iswekv. There is also evidence of facet joint [...] ofspondylolysis or spondylolisthesis. Reported By: AARON SHRESTHA 8-Mjm-380170:44 HgA1C , Office (35206) HgA1C , Office 6.2 % (Normal) Range: 4.6 - 7.1 2-Nwa-380824:44 Blood Glucose , Office (18368) Blood Glucose , Office 110 (Normal) 84-Vie-933802:46 PRO TIME INR 2.1 (Normal) PROTIME 23.1 s (Abnormal) Range: 9.1-11.7 01-Ggs-220613:38 INR ISTAT 1.0 (Normal) 18-Siv-832562:38 PROTIME ISTAT INR ISTAT 1.3 (Normal) PROTIME ISTAT 14.9 {SEC} (Normal) 96-Gih-500181:38 PROTIME ISTAT 15.0 {SEC} (Normal) 81-Oov-211794:05 Blood Glucose , Office (78319) Blood Glucose , Office 111 (Normal) 01-Hwe-046726:35 ABG Comments: COMMENTS: HYPOXIAIS THE BLOOD GAS [...] 7.35-7.45 sO2 92.2 % (Abnormal) Range: 95-99 39-Klt-990755:54 CHEST, PA AND LATERAL Radiology Report See Note (Normal) Comments: Exam Number: [id number] HISTORYShortness of breath. CHEST PA AND LATERAL [...] 63.2 pg/mL (Normal) Comments: CALL RESULTS TO [phone] :32 29-Mql-375058:32 BMP Comments: CALL RESULTS TO [phone] FAX RESULTS TO DR GODINEZ BUN 12 [...] 3.5-5.1 NA 143 mmol/L (Normal) Range: 136-145 43-Sin-288073:42 HgA1C , Office (93172) HgA1C , Office 6.1 % (Normal) Range: 4.6 - 7.1 56-Qjf-382303:42 Blood Glucose , Office (94787) Blood Glucose , Office 128 (Normal) 17-Jgw-74147:00 VIT D,25 23645 66.4 ng/mL (Normal) Range: 32.0-100.0 Comments: Recent studies consider the lower limit of 32.0 ng/mL to dorie threshold for optimal health.Wayne SANCHEZ. J Nutr. 2004;135(2):317-22.Performed At: [facility] [place], [place] [id number] 23-Biq-354111:01 CBCD Comments: ORDERED CBCMD, LIPID, CMP, MICRO [...] 11.6-14.6 WBC 6.1 K/mm3 (Normal) Range: 4.4-11.0 :01 CBCD,SMEAR DIFF Comments: ADDING A MANUAL DIFFDRJONELLE ORDERED CBCMD, LIPID, CMP, MICRO CREA DR. [...] 11.6-14.6 WBC 6.1 K/mm3 (Normal) Range: 4.4-11.0 :01 COMP METABOLIC Comments: ORDERED CBCMD, LIPID, CMP, [...] mg/L (Normal) UR CREAT 111.5 mg/dL (Normal) 81-Ppa-184318:01 PRO TIME Comments: ORDERED CBCMD, LIPID, CMP, MICRO CREA DR. MCNAIR ORDERED PT INR 2.3 (Normal) PROTIME 25.4 s (Abnormal) Range: 9.1-11.7 45-Rrs-63471:22 DEXA BONE DENSITY STUDY () Radiology Report See Note (Normal) Comments: Exam Number: [id number] BONE DENSITOMETRY HISTORYPostmenopausal. TECHNIQUE Bone densitometry of the lumbar spine and both hips is now beingperformed. The best criteria for evaluation of osteoporosis is theT-value, which represents the comparison of the patient's bone mass anna expected peak bone mass. For most patients, the mean T-value of A2nqamsiq L4 is used to evaluate the lumbar [...] is measured at 7.5% less than in 1998 and 8.8% morethan in 2004.The T-value of the right femoral neck is [...] Report See Note (Normal) Comments: Exam Number: [id number] BILATERAL SCREENING MAMMOGRAM, DIGITAL SCREENING MAMMOGRAM WITH CAD There is a vbocc-ch-ykerlypr amount of fibroglandular tissue in bothbreasts. There is slight asymmetry. No d efinitive mass is seen. [place] not see any secondary signs to suggest malignancy. There is abiopsy clip in the right breast. Considering differences intechnique, I do not think there has been significan t change sinceAugus2005. IMPRESSION Negative exam. BIRADS 1. A letter regarding the results has been sent to the patient. This interpretation was rendered by a radiologist certified under th eMammography Quality Standards Act of 1992 (MQSA). The mammograms werealso examined with computer-aided detection software (Exakis, Globitel.). Reported By: SUNDAY HARRIS M.D. 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 Endocervical and/or squamous metaplasticcells (endocervical component) are present. COMM . (Normal) DIAGN Comment (Normal) Comments: NEGATIVE FOR INTRAEPITHELIAL LESION AND MALIGNANCY. HPV RFLX Comment (Normal) Comments: The HPV DNA reflex criteria were not met with this specimenresult therefore, no HPV testing was performed. .Performed At: [address] [id number] PAPSMR Comment (Normal) Comments: The Pap smear is a screening test designed to aid in thedetection of premalignant and malignant conditions of theuterine cervix. It is not a diagnostic procedure andshould not be used as the sole means of detecting cervicalcancer. Both false-positive and false-negative reports dooccur. . PERFORM Comment (Normal) Comments: Murphy Pavon, Boat Worker (ASCP) 50-Byz-154128:19 HgA1C , Office (18218) HgA1C , Office 6.5 % (Normal) Range: 4.6 - 7.1 80-Cye-077059:19 Blood Glucose , Office (64592) Blood Glucose , Office 127 (Normal) 45-Gdt-053925:32 PRO TIME Comments: DR MCNAIR ORDERED PTDR VIJI ORDERED BMP INR 3.0 (Normal) PROTIME 34.8 s (Abnormal) Range: 9.1-11.7 :28 CA 9.5 mg/dL (Normal) Comments: ORDERED PTASSIUM,MAG,PTHIN,CALCIUM,PHOS,VITDDR.TABBY ORDERED PT PLEASE FAX PT RESULTS Range: 8.5-10.1 :28 K 3.6 mmol/L (Normal) Comments: ORDERED PTASSIUM,MAG,PTHIN,CALCIUM,PHOS,VITDDR.TABBY [...] PROTIME 41.0 s (Abnormal) Range: 9.1-11.7 :28 PTH,CCWVVM52806 Comments: ORDERED PTASSIUM,MAG,PTHIN,CALCIUM,PHOS,VITDDR.TABBY ORDERED PT PLEASE FAX PT RESULTS PTH,Intact 32 pg/mL (Normal) Range: 15-65 Comments: Performed At: [address] [id number] :28 VIT D,25 58334 20.9 ng/mL (Abnormal) Comments: ORDERED PTASSIUM,MAG,PTHIN,CALCIUM,PHOS,VITDDR.TABBY ORDERED PT PLEASE FAX PT RESULTS Range: 32.0-100.0 Comments: Recent studies consider the lower limit of 32.0 ng/mL to dorie threshold for optimal health.Wayne SANCHEZ. J Nutr. 2004;135(2):317-22. :39 HgA1C , Office (17098) HgA1C , Office 6.4 % (Normal) Range: 4.6 - 7.1 :39 Blood Glucose , Office (95150) Blood Glucose , Office 141 (Normal) :44 [...] CREAT 259.4 mg/dL (Normal) :44 T3, FREE 03288 3.2 pg/mL (Normal) Range: 2.3-4.2 Comments: Performed At: [address] [id number] :44 T4 FREE,DIRECT 1.1 ng/dL (Normal) Range: 0.89-1.76 :44 TSH 0.12 {uIU/mL} (Abnormal) Range: 0.34-4.82 99-Qmz-24163:30 NAYA U24 723123 Comments: DATE STARTED 10/01/08, TIME STARTED 929DATE ENDED 10/02/08, TIME ENDED 929 CORTISOL,FR U24 26 {ug/24_hr} (Normal) Range: 0-50 Comments: Performed At: [address] [id number] CORTISOL,U FREE 11 ug/L (Normal) 21-Ssu-505507:14 HgA1C , Office (29129) HgA1C , Office 6.3 % (Normal) Range: 4.6 - 7.1 38-Fsn-178139:14 Blood Glucose , Office (98876) Blood Glucose , Office 153 (Normal) 4-Xko-421500:38 LIVER (HP) Radiology Report See Note (Normal) Comments: Exam Number: [id number] LIVER ULTRASOUND HISTORYElevated liver function test. High-resolution [...] bowel gas. Reported By: QUINCY LUTZ M.D. 12-Udx-647363:34 HgA1C , Office (24052) HgA1C , Office 6.2 % (Normal) Range: 4.6 - 7.1 02-Qhx-681410:33 Blood Glucose , Office (19157) Blood Glucose , Office 116 (Normal) 44-Sdp-623670:54 LIVER Comments: DR. MCNAIR ORDERED PT DR. [...] range effective 08. :36 HgA1C , Office (57514) HgA1C , Office 6.1 % (Normal) Range: 4.6 - 7.1 :36 Blood Glucose , Office (72261) Blood Glucose , Office 135 (Normal) :49 HgA1C , Office (27807) HgA1C , Office 6.2 % (Normal) Range: 4.6 - 7.1 :49 Blood Glucose , Office (12613) Blood Glucose , Office 137 (Normal) :11 T3, FREE 01794 3.2 pg/mL (Normal) Range: 2.3-4.2 Comments: Performed At: [address] [id number] :11 T4 FREE,DIRECT 1.2 ng/dL (Normal) Range: 0.89-1.76 :24 THYROID IMAGE W/UPTAKE MULT Radiology Report See Note (Normal) Comments: Exam Number: [id number] THYROID SCAN AND UPTAKE: INDICATIONAbnormal thyroid study. COMPARISONNone. [id number] mCi of iodine-123 was given orally. Pinhole collimator images ofthe thyroid gl and were obt ained in anterior, GARDNER, and YORUBA positions.4-hour and 24-hour uptake values were obtained. FINDINGSThere is fairly symmetric uptake of radiopharmaceutical within boththyroid lobes, which appear to be sym metric in size and not enlarged.No focal hot or cold nodules are identified. The 4-hour and 24-houruptake values are within normal limits, calculated at 8.4% and 17.1%respectively. IMPRESSIONNormal r adionuclide thyroid scan and uptake. Reported By: CARLOS WHEELER M.D. 84-Dax-092791:13 BMP BUN 11 mg/dL (Normal) Range: 7-18 [...] 3.5-5.1 NA 142 mmol/L (Normal) Range: 136-145 71-Gbu-631811:13 MICROSO AB 6676 < 10 {IU/mL} (Normal) Range: 0-34 Comments: Performed At: [address] [id number] 71-Wdm-823102:13 T3, FREE 91987 3.2 pg/mL (Normal) Range: 2.3-4.2 Comments: Performed At: [address] [id number] :13 T4 FREE,DIRECT 1.3 ng/dL (Normal) Range: 0.89-1.76 11-Shb-439194:13 TSH 0.23 {uIU/mL} (Abnormal) Range: 0.34-4.82 :36 HgA1C , Office (67439) HgA1C , Office 5.7 % (Normal) Range: 4.6 - 7.1 :36 Blood Glucose , Office (40248) Blood Glucose , Office 117 (Normal) 33-Xtk-614457:04 CBCD,SMEAR DIFF BAND 1 % (Normal) Range: [...] 47-70 WBC 7.0 K/mm3 (Normal) Range: 4.4-11.0 64-Txq-762137:04 COMP METABOLIC A/G 0.9 {RATIO} (Normal) Range: [...] (Abnormal) Comments: RESULTS CALLED TO MYRANDA PARSON 05/21/07 144JOSETTE LOPEZREPORT READ BACK BY SAME AMENDED REPORT 05/21/071446 [...] Range: 10.6-13.2 :31 Blood Glucose , Office (02366) Blood Glucose , Office 138 (Normal) :24 [...] (Abnormal) Range: 11.7-13.3 :40 HgA1C , Office (83534) HgA1C , Office 5.9 % (Normal) Range: 4.6 - 7.1 :40 Blood Glucose , Office (83488) Blood Glucose , Office 90 (Normal) :49 [...] 39.0 s (Abnormal) Range: 11.7-13.3 :31 SPE 790002 A/G RATIO 1.2 (Normal) Range: 0.7-2.0 ALBUMIN [...] Evidenceof monoclonal protein is not apparent.Performed At: [facility] [id number] [place], [place] [id number] M-SPIKE SeeNote (Normal) Comments: Result: Not Observed NOTE: Comment (Normal) Comments: Protein electrophoresis scan will follow via mail orcourier. PROTEIN,TOTAL 7.1 g/dL (Normal) Range: 6.0-8.5 :24 PRO TIME INR 3.0 (Normal) PROTIME 33.8 s (Abnormal) Range: 11.7-13.3 :12 HgA1C , Office (27459) HgA1C , Office 5.9 % (Normal) Range: 4.6 - 7.1 :12 Blood Glucose , Office (68260) Blood Glucose , Office 108 (Normal) :35 [...] mg/dL VLDL 15 mg/dL (Normal) Range: 5-40 6-Ozh-102911:48 ROUTINE UA BILIRUBIN URINE SeeNote (Normal) Comments: [...] dysfunction : FOLLOW UP IN 3 DAYS [facility] Indication: Eustachian tube dysfunction Bronchitis : *URI [...] Cellulitis : IV Indication: Cellulitis Planned Observations TSH (78908)Indication: Hypothyroidism On: 1-Ogv-949912:36 Request ZINC, BLOOD (24659)Indication: Low zinc level On: :03 Request HEPATITIS C ANTIBODY (22328)Indication: Encounter for hepatitis C virus screening test for high risk patient On: :02 Request ZINC, BLOOD (18800)Indication: Low zinc level On: :28 Request METABOLIC PANEL, COMPREHENSIVE (95510)Indication: Controlled diabetes mellitus type II without complication On: :49 Request Phosphorus (94707)Indication: Postsurgical malabsorption On: :52 Request FERRITIN (29744)Indication: Postsurgical malabsorption On: :52 Request ZINC, BLOOD (66762)Indication: Postsurgical malabsorption On: :52 Request Vitamin B-12 (cyanocobalamin) (03407)Indication: Postsurgical malabsorption On: :52 Request VITAMIN A (88417)Indication: Postsurgical malabsorption On: :52 Request MAGNESIUM (25821)Indication: Postsurgical malabsorption On: :52 Request Folic Acid Serum (77112)Indication: Postsurgical malabsorption On: :52 Request CHROMIUM (77905)Indication: Postsurgical malabsorption On: :52 Request Phosphorus (58427)Indication: Postsurgical malabsorption On: :54 Request FERRITIN (79704)Indication: Postsurgical malabsorption On: :54 Request ZINC, BLOOD (16879)Indication: Postsurgical malabsorption On: :54 Request Vitamin B-12 (cyanocobalamin) (81028)Indication: Postsurgical malabsorption On: :54 Request VITAMIN A (98091)Indication: Postsurgical malabsorption On: :54 Request MAGNESIUM (06259)Indication: Postsurgical malabsorption On: :54 Request Folic Acid Serum (99887)Indication: Postsurgical malabsorption On: :54 Request CHROMIUM (04072)Indication: Postsurgical malabsorption On: 85-Ryb-903879:54 Request PT (Prothrobim Time) (05377)Indication: Long-term (current) use of anticoagulants (Renamed from snf current use of anticoagulant therapy) On: 71-Nxq-113960:52 Request METABOLIC PANEL, COMPREHENSIVE (06907)Indication: Afib On: 19-Tst-622233:27 Request LIPID PANEL (71280)Indication: Afib On: 16-Vbg-705454:27 Request CALCIFIDIOL (01052) VIT D 25Indication: Vitamin D deficiency, unspecified On: 58-Lkp-039348:24 Request CBC with manual diff (62323)Indication: Hypertension On: 90-Gxr-883388:23 Request Hemoglobin Glyclated (HGB A1C) (19405)Indication: Controlled diabetes mellitus type II without complication On: 52-Xyc-957105:23 Request Hemoglobin Glyclated (HGB A1C) (76143)Indication: Controlled diabetes mellitus type II without complication On: 28-Apr-2015 Request LIPID PANEL (07632)Indication: Controlled diabetes mellitus type II without complication On: 20-Akt-266916:14 Request Comments: copy to Dr. mcnair MICROALBUMIN: CREATININE RATIO (61061) AND (30334)Indication: Controlled diabetes mellitus type II without complication On: 88-Bpn-839355:14 Request METABOLIC PANEL, COMPREHENSIVE (23734)Indication: Controlled diabetes mellitus type II without complication On: 75-Vhj-507314:14 Request CBC with auto diff (19805)Indication: Controlled diabetes mellitus type II without complication On: 49-Cja-941463:14 Request Metabolic Panel, Comprehensive (67303)Indication: Hypercholesterolemia On: 52-Yfw-945071:01 Request Comments: recheck in 3 months Lipid Panel (92753)Indication: Hypercholesterolemia On: 65-Zoy-478206:01 Request Comments: recheck in 3 months Hemoglobin Glyclated (HGB A1C) (79796)Indication: Controlled diabetes mellitus type II without complication On: 63-Eyi-494675:08 Request CALCIFIDIOL (83069) VIT D 25Indication: Vitamin D deficiency, unspecified On: 95-Pod-438843:02 Request TSH (86445)Indication: Abnormal TSH On: 59-Dsg-703953:02 Request URINALYSIS, W/ MICRO (00947)Indication: Controlled diabetes mellitus type II without complication On: :43 Request METABOLIC PANEL, COMPREHENSIVE (54796)Indication: Controlled diabetes mellitus type II without complication On: :43 Request LIPID PANEL (89279)Indication: Controlled diabetes mellitus type II without complication On: : Request CBC WITH MANUAL DIFF (90406)Indication: Controlled diabetes mellitus type II without complication On: :43 Request CALCIFIDIOL (66919) VIT D 25Indication: Vitamin D deficiency, unspecified On: :26 Request Comments: in three months (approximately) CALCIFEDIOL (49293)Indication: Postsurgical malabsorption On: : Request Phosphorus (72508)Indication: Postsurgical malabsorption On: : Request ZINC, BLOOD (12786)Indication: Postsurgical malabsorption On: : Request FERRITIN (09483)Indication: Postsurgical malabsorption On: : Request Vitamin B-12 (cyanocobalamin) (71067)Indication: Postsurgical malabsorption On: : Request VITAMIN A (14899)Indication: Postsurgical malabsorption On: : Request MAGNESIUM (19606)Indication: Postsurgical malabsorption On: :05 Request MICROALBUMIN: CREATININE RATIO (82097) AND (48203)Indication: Controlled diabetes mellitus type II without complication On: : Request METABOLIC PANEL, COMPREHENSIVE (04804)Indication: Controlled diabetes mellitus type II without complication On: : Request LIPID PANEL (36167)Indication: Controlled diabetes mellitus type II without complication On: : Request CBC WITH MANUAL DIFF (74510)Indication: Controlled diabetes mellitus type II without complication On: : Request Metabolic Panel, Basic (16650)Indication: Hypertension On: 22-Tjm-465089:39 Request PTH (PARATHORMONE) (42444)Indication: Hypercalcemia On: 3-Ekq-889303:33 Request Comments: re check prior to next follow up Calcium Serum (83647)Indication: Hypercalcemia On: 8-Krs-932131:33 Request Comments: re check prior to next follow up CALCIFIDIOL (92985) VIT D 25Indication: Vitamin D deficiency, unspecified On: :32 Request Comments: re check prior to next follow up HEPATIC FUNCTION PANEL (82128)Indication: Hypercholesterolemia On: :46 Request LIPID PANEL (37349)Indication: Hypercholesterolemia On: :46 Request PARATHORMONE (55112)Indication: Postsurgical malabsorption On: :04 Request MAGNESIUM (01637)Indication: Postsurgical malabsorption On: : Request CHROMIUM (82514)Indication: Postsurgical malabsorption On: : Request ASSAY, HOMOCYSTINE (86892)Indication: Postsurgical malabsorption On: :04 Request MICROALBUMIN: CREATININE RATIO (87182) AND (72856)Indication: Controlled diabetes mellitus type II without complication On: :04 Request METABOLIC PANEL, COMPREHENSIVE (79228)Indication: Controlled diabetes mellitus type II without complication On: :04 Request LIPID PANEL (58798)Indication: Controlled diabetes mellitus type II without complication On: :04 Request CBC WITH MANUAL DIFF (56046)Indication: Controlled diabetes mellitus type II without complication On: :04 Request TSH (36232)Indication: Abnormal TSH On: 2-Var-916365:03 Request CPK TOTAL & ISOENZYMES (23729)Indication: Pain in limb On: 67-Cww-793092:12 Request Vitamin B-12 (cyanocobalamin) (08797)Indication: Postsurgical malabsorption On: 9-Lid-944969:16 Request VITAMIN A (03537)Indication: Postsurgical malabsorption On: 0-Kbe-845168:16 Request Folic Acid Serum (89659)Indication: Postsurgical malabsorption On: 4-Uml-128943:16 Request MAGNESIUM (54396)Indication: Postsurgical malabsorption On: 0-Qpa-548563:16 Request CALCIFEDIOL (69889)Indication: Postsurgical malabsorption On: 9-Weg-091402:16 Request Magnesium (57156)Indication: Postsurgical malabsorption On: 2-Xql-376418:16 Request Phosphorus (50487)Indication: Postsurgical malabsorption On: 6-Nzs-117999:15 Request FERRITIN (39309)Indication: Postsurgical malabsorption On: :15 Request IRON (62963)Indication: Postsurgical malabsorption On: :15 Request ZINC, BLOOD (33756)Indication: Postsurgical malabsorption On: :15 Request METABOLIC PANEL, COMPREHENSIVE (51841)Indication: Controlled diabetes mellitus type II without complication On: 5-Ofx-003360:15 Request TSH (11445)Indication: Abnormal TSH On: :15 Request MICROALBUMIN: CREATININE RATIO (13847) AND (20747)Indication: Controlled diabetes mellitus type II without complication On: :15 Request Lipid Panel (73726)Indication: Controlled diabetes mellitus type II without complication On: :15 Request CBC with manual diff (63222)Indication: Controlled diabetes mellitus type II without complication On: 6-Hsn-103484:15 Request CALCIFEDIOL (83634)Indication: Osteopenia On: 8-Jko-805748:00 Request Hemoglobin Glyclated (HGB A1C) (92235)Indication: Controlled diabetes mellitus type II without complication On: :31 Request Lipid Panel (71857)Indication: Controlled diabetes mellitus type II without complication On: :31 Request Metabolic Panel, Comprehensive (97215)Indication: Controlled diabetes mellitus type II without complication On: :28 Request CALCIFEDIOL (88963)Indication: Postsurgical malabsorption On: :26 Request PARATHORMONE (25061)Indication: Postsurgical malabsorption On: :26 Request Magnesium (56193)Indication: Postsurgical malabsorption On: :26 Request Phosphorus (71219)Indication: Postsurgical malabsorption On: :26 Request IRON (17600)Indication: Postsurgical malabsorption On: :26 Request FERRITIN (02085)Indication: Postsurgical malabsorption On: :26 Request ZINC, BLOOD (52437)Indication: Postsurgical malabsorption On: Request Vitamin B-12 (cyanocobalamin) (21122)Indication: Postsurgical malabsorption On: Request VITAMIN A (67977)Indication: Postsurgical malabsorption On: Request MAGNESIUM (92623)Indication: Postsurgical malabsorption On: Request Folic Acid Serum (23563)Indication: Postsurgical malabsorption On: Request CHROMIUM (61447)Indication: Postsurgical malabsorption On: Request ASSAY, HOMOCYSTINE (76260)Indication: Postsurgical malabsorption On: Request TSH (36829)Indication: Abnormal TSH On: Request Hemoglobin Glyclated (HGB A1C) (78917)Indication: Controlled diabetes mellitus type II without complication On: Request CBC with manual diff (20466)Indication: Controlled diabetes mellitus type II without complication On: Request Metabolic Panel, Comprehensive (99439)Indication: Controlled diabetes mellitus type II without complication On: Request Lipid Panel (47302)Indication: Controlled diabetes mellitus type II without complication On: Request METHLYMALONIC ACID, SERUM (67952)Indication: Postsurgical malabsorption On: Request CBC WITH MANUAL DIFF (70257)Indication: Controlled diabetes mellitus type II without complication On: : Request LIPID PANEL (26663)Indication: Controlled diabetes mellitus type II without complication On: :10 Request METABOLIC PANEL, COMPREHENSIVE (69185)Indication: Controlled diabetes mellitus type II without complication On: : Request MICROALBUMIN: CREATININE RATIO ([id number]) AND ([id number])Indication: Controlled diabetes mellitus type II without complication On: :10 Request BNTP ([id number])Indication: Other primary cardiomyopathies On: :22 Request Comments: call labs when back to [phone] Metabolic Panel, Basic ([id number])Indication: Other primary cardiomyopathies On: 36-Xhu-281598:21 Request Vitamin D Hydroxy (71758)Indication: Osteopenia On: 43-Tex-932893:09 Request Thin prep Pap ([id number])Indication: Encounter for general adult medical examination with abnormal findings On: 05-Mnm-935793:00 Request MICROALBUMIN: CREATININE RATIO ([id number]) AND ([id number])Indication: Uncontrolled type II diabetes mellitus On: 74-Rsl-405555:36 Request METABOLIC PANEL, COMPREHENSIVE (44022)Indication: Uncontrolled type II diabetes mellitus On: 08-Eeb-257308:36 Request LIPID PANEL ([id number])Indication: Uncontrolled type II diabetes mellitus On: :36 Request CBC WITH MANUAL DIFF ([id number])Indication: Uncontrolled type II diabetes mellitus On: 47-Bkj-843111:36 Request Comments: in three months (approximately) Metabolic Panel, Comprehensive ([id number])Indication: Uncontrolled type II diabetes mellitus On: 63-Mvf-550060:04 Request Lipid Panel (30019)Indication: Uncontrolled type II diabetes mellitus On: 27-Kar-704736:04 Request Comments: in three months (approximately) CALCIFIDIOL (02382) VIT D 25Indication: Hypercalcemia On: 98-Bbr-534974:57 Request Phosphorus (54805)Indication: Hypercalcemia On: 25-Uyq-861889:56 Request Calcium Serum (73095)Indication: Hypercalcemia On: 37-Oud-032840:56 Request PARATHORMONE ([id number])Indication: Hypercalcemia On: 31-Waq-667667:56 Request Magnesium (15881)Indication: Hypokalemia On: 69-Sco-773916:55 Request Potassium Serum (45019)Indication: Hypokalemia On: 02-Stt-344049:55 Request CORTISOL TOTAL (99179)Indication: Morbid obesity On: 30-Awi-123816:28 Request Comments: WANT 24 HOUR URINE FOR CORTISOL TSH ([id number])Indication: Abnormal TSH On: 63-Tcm-390332:22 Request T4, FREE (THYROXINE) ([id number])Indication: Abnormal TSH On: 61-Qcs-150324:22 Request T3, FREE (TRIDOTHYRONINE) ([id number])Indication: Abnormal TSH On: 47-Rnj-385904:22 Request MICROALBUMIN: CREATININE RATIO (40309) AND ([id number])Indication: Uncontrolled type II diabetes mellitus On: 44-Byn-682057:20 Request METABOLIC PANEL, COMPREHENSIVE ([id number])Indication: Uncontrolled type II diabetes mellitus On: 02-Cda-136467:20 Request LIPID PANEL ([id number])Indication: Uncontrolled type II diabetes mellitus On: 36-Aiz-167976:20 Request CBC WITH MANUAL DIFF ([id number])Indication: Uncontrolled type II diabetes mellitus On: 53-Dla-712166:20 Request Comments: in three months (approximately) HEPATIC FUNCTION PANEL (50073)Indication: Elevated LFTs On: 64-Aqb-920787:42 Request CBC (Auto) ([id number])Indication: Uncontrolled type II diabetes mellitus On: :21 Request Metabolic Panel, Comprehensive ([id number])Indication: Uncontrolled type II diabetes mellitus On: :21 Request Lipid Panel ([id number])Indication: Uncontrolled type II diabetes mellitus On: 56-Kvf-136660:21 Request Comments: in three months (approximately) T3, FREE (TRIDOTHYRONINE) (45752)Indication: Abnormal TSH On: 54-Eno-268499:16 Request T4, FREE (THYROXINE) ([id number])Indication: Abnormal TSH On: 85-Dkw-095193:16 Request TSH ([id number])Indication: Abnormal TSH On: 13-Oyz-012788:16 Request Metabolic Panel, Basic ([id number])Indication: Other primary cardiomyopathies On: 00-Taa-078440:53 Request Comments: end of month T4, FREE (THYROXINE) ([id number])Indication: Abnormal TSH On: 88-Egk-063909:53 Request TSH ([id number])Indication: Abnormal TSH On: 94-Aiv-329591:53 Request T3, FREE (TRIDOTHYRONINE) ([id number])Indication: Abnormal TSH On: 18-Ylg-795706:53 Request TSH ([id number])Indication: Depression On: :16 Request METABOLIC PANEL, COMPREHENSIVE ([id number])Indication: Uncontrolled type II diabetes mellitus On: 1-Rxy-077726:10 Request MICROALBUMIN: CREATININE RATIO ([id number]) AND ([id number])Indication: Uncontrolled type II diabetes mellitus On: 4-Sph-472957:10 Request LIPID PANEL ([id number])Indication: Uncontrolled type II diabetes mellitus On: :10 Request CBC WITH MANUAL DIFF ([id number])Indication: Uncontrolled type II diabetes mellitus On: 1-Okq-887647:10 Request Comments: in three months (approximately) Blood Glucose , Office (31617)Indication: Uncontrolled type II diabetes mellitus On: :10 Request HgA1C , Office ([id number])Indication: Uncontrolled type II diabetes mellitus On: 7-Emi-213248:10 Request MICROALBUMIN: CREATININE RATIO ([id number]) AND ([id number])Indication: Hypertension On: 30-Xfa-362943:58 Request Metabolic Panel, Basic ([id number])Indication: Hypertension On: :58 Request HgA1C , Office (36762)Indication: Glucose intolerance (no malabsorption) On: 21-Qhg-354330:31 Request HEPATIC FUNCTION PANEL ([id number])Indication: Hypercholesterolemia On: 84-Moi-260101:11 Request LIPID PANEL ([id number])Indication: Hypercholesterolemia On: 12-Npb-788206:11 Request HEPATIC FUNCTION PANEL ([id number])Indication: Hypercholesterolemia On: 63-Vnv-454348:38 Request LIPID PANEL ([id number])Indication: Hypercholesterolemia On: 42-Yyw-095645:38 Request Planned Encounters Medical; [facility] 3 Month FU - On: 31-Jul-2018 11:30 [facility] Viji CHANDRA, Nic Kyle MD Planned Procedures PNEUM VAC ADLT/IMUMNOSPR, On: 11-Dec-2017 Intent SBC/INTRM ([id number])By: Viji CHANDRA, Comments: pneumovax prefilled syringe injection lot: [id number]:05/2019R DELT IMpt tolerated wellMSMITH,CATHOLIC PRIEST Nic Kyle MD DEXA SCAN AXIAL SKELETON On: 11-Dec-2017 Intent ([id number])By: Nic Hallman MD Comments: due 01-26 Nic Hallman MD SCREENING DIGITAL TOMOSYNTHESIS On: 11-Dec-2017 Intent OF BREAST ([id number])By: Viji CHANDRA, Comments: due 01-26 Nic Kyle MD Flu Vaccine (Quadrivalent) On: 17-Jul-2017 Intent 91356Jy: Nic Hallman MD Comments: QUAD flu 0.5ml injectionlot number: [id number]: 12/2017R Deltoid IMpt tolerated wellAD CATHOLIC PRIEST Nic Hallman MD MAGNETIC RESONANCE IMAGING OF On: 16-May-2017 Intent LEFT HIP WITH AND WITHOUT Comments: attention left femoral neck CONTRAST ([id number])By: Nic Hallman MD, MD, Dana M Nuclear Medicine - Bone ScanBy: On: 09-May-2017 Intent Nic Hallman MD, MD, Comments: spiculated lesion left iliac bone Nic Gutierres Radiology - Lumbar SpineBy: On: 08-May-2017 Intent Nic Hallman MD, MD, Dana M Radiology - Hip - BilateralBy: On: 08-May-2017 Intent Nic Hallman MD, MD, Dana M SCREENING DIGITAL TOMOSYNTHESIS On: 08-May-2017 Intent OF BREAST ([id number])By: Nic Hallman MD, MD, Dana M US DOPPLER CAROTID BILATERAL On: 09-Aug-2016 Intent ([id number])By: Nci Hallman MD, MD, Dana M MAGNETIC RESONANCE IMAGING OF On: 09-Aug-2016 Intent RIGHT SHOULDER WITHOUT CONTRAST ([id number])By: Nic Hallman MD, MD, Dana M MAGNETIC RESONANCE IMAGING OF On: 09-Aug-2016 Intent RIGHT SHOULDER WITHOUT CONTRAST (45377)By: Nic Hallman MD, MD, Dana M Flu Vaccine (Quadrivalent) On: 09-Aug-2016 Intent 66902Fz: Nic Hallman MD Comments: Lot #:[id number] date:2-24-43Cgjeyx given:0.5mlRoute: IMSite given:L DltdGiven by: ElaineVIS and ABN signed [employer]ix Nic Hallman MD TDAP VACCINE >7 IM ([id number])By: On: 03-May-2016 Intent Nic Hallman MD, MD, Dana M Pap Smear, Medicare ([id number])By: On: 03-May-2016 Intent Nic Hallman MD, MD, Dana M BILATERAL MAMMOGRAMS ([id number])By: On: 03-May-2016 Intent Nic Hallman MD, MD, Dana M Toradol Injection, 30 mg On: 09-Feb-2016 Intent ([id number])By: Nic Hallman MD, MD, Dana M Radiology - Cervical SpineBy: On: 09-Feb-2016 Intent Nic Hallman MD, MD, Dana M Radiology - Shoulder - RightBy: On: 09-Feb-2016 Intent Nic Hallman MD, MD, Dana M Carotid DopplerBy: Viji CHANDRA, On: 01-Sep-2015 Intent Nic Kyle MD DEXA SCAN AXIAL SKELETON On: 01-Sep-2015 Intent ([id number])By: Nic Hallman MD Comments: due 01-24 Nic Hallman MD Flu Vaccine (Quadrivalent) On: 04-Aug-2015 Intent 87840So: Nic Hallman MD Comments: Lot:[id number]:03/10/16Dose:0.5mLRoute:IMSite:L DltdGiven By:JKMVIS signed Nic Hallman MD IMMUNIZ ADMNIN, 1 VAC, SNGL/COMBO On: 22-Jan-2015 Intent (68261)By: Nic Hallman MD, MD, Dana M ZOSTER VACC, [place] (22686)By: On: 22-Jan-2015 Intent Nic Hallman MD, MD, Dana M INJECTION, PROLIA ([id number])By: On: 30-Oct-2014 Intent Visit, Nurse Comments: lot [id number] arm, SCprefilledMegan, CATHOLIC PRIEST Aware due in mid April and to call in March to let us know to assure gets sent to us Prevnar 13 (72404)By: Viji On: 23-Oct-2014 Intent Nic CHANDRA MD, Dana M MAMMOGRAM, SCREENING, BOTH BREAST On: 23-Oct-2014 Intent ([id number])By: Nic Hallman MD, MD, Dana M Nuclear Medicine - OtherBy: On: 01-Aug-2014 Intent Nic Hallman MD, MD, Comments: thyriod jesse Gutierres ADMINISTRATION OF INFLUENZA VIRUS On: 01-Aug-2014 Intent VACCINE ([id number])By: Nic Hallman MD, MD, Dana M Flu Vaccine (Quadrivalent) On: 01-Aug-2014 Intent 39305Ix: Nic Hallman MD Comments: Lot #:[id number] date:mount given:0.5mlRoute: IMSite given:left deltoid Given by: ASlarb Nic Hallman MD Ultrasound - ThyroidBy: Viji On: 26-May-2014 Intent Nic CHANDRA MD, Dana M INJECTION, PROLIA (J0897)By: On: 24-Apr-2014 Intent Nic Hallman MD, MD, Comments: Lot:[id number]:09/2016Dose:60mgRoute:subqSite:r armGiven By:JKMVIS signed Nic Gutierres MAMMOGRAM, SCREENING, BOTH On: 19-Dec-2013 Intent BREASTS (81459)By: Viji CHANDRA, Comments: due 01-22 Nic Kyle MD DXA, BONE DENSITY, AXIAL SKELETON On: 19-Dec-2013 Intent (02272)By: Nic Hallman MD, MD, Dana M Eprescribed prescriptions On: 18-Sep-2013 Intent (G8553)By: Jodi Ortega Carotid DopplerBy: Viji CHANDRA, On: 17-Jun-2013 Intent Nic Kyle MD FLU VAC, SPLIT, >3 YEARS, On: 17-Jun-2013 Intent INTRAMUSC (75912)By: Marc, Comments: Lot #:[id number] date:02.22Amount given:0.5mlRoute: IMSite given:L DltdGiven by: RUY and ABN signed HEAVEN IMMUNIZ ADMNIN, 1 VAC, SNGL/COMBO On: 17-Jun-2013 Intent (26009)By: HEAVEN Tran MAMMOGRAM, SCREENING, BOTH On: 22-Nov-2012 Intent BREASTS (90072)By: Nic Hallman MD, MD, Dana M Eprescribed prescriptions On: 24-Jul-2012 Intent (G8553)By: Yvonne Webb LPN FLU VAC, SPLIT, >3 YEARS, On: 17-May-2012 Intent INTRAMUSC (25284)By: Marc, Comments: Lot:[id number]:03-10-13Dose:prefilledRoute:IMSite:L armGiven By:ADELFO COLLADO IMMUNIZ ADMNIN, 1 VAC, SNGL/COMBO On: 17-May-2012 Intent (60266)By: EHAVEN Tran Venous Doppler - RightBy: Geeta On: 09-Jan-2012 Intent Jailyn BAPTISTE Comments: call [facility] with wet Rafael worley Carotid DopplerBy: Viji CHANDRA, On: 12-Aug-2011 Intent Nic Kyle MD Spirometry (29595)By: Viji On: 28-Jul-2011 Intent Nic CHANDRA MD, Dana M Comments: mild obstruction much better than was in 2008 Pulse Oximetry (66685)By: Viji On: 28-Jul-2011 Intent Nic CHANDRA MD, Dana M Bone Density StudyBy: Viji CHANDRA, On: 28-Jul-2011 Intent Nic Kyle MD FLU VAC, SPLIT, >3 YEARS, On: 12-Jul-2011 Intent INTRAMUSC (93683)By: Jon GARCIA, Comments: Lot #[id number]-3.12Site-L arm, IMDose prefilledgiven by:Yvonne Stuart IMMUNIZ ADMNIN, 1 VAC, SNGL/COMBO On: 12-Jul-2011 Intent (87415)By: Yvonne Webb LPN Eprescribed prescriptions On: 08-Apr-2011 Intent (G8553)By: Nic Hallman MD, MD, Dana M Aerosol Treatment (48102)By: On: 08-Apr-2011 Intent Nic Hallman MD, MD, Dana M Pulse Oximetry (48590)By: On: 08-Apr-2011 Intent HEAVEN Tran Pulse Oximetry (86138)By: Daysia On: 02-Dec-2010 Intent Jailyn BAPTISTE Aerosol Treatment (15162)By: On: 02-Dec-2010 Intent Daysicourtney Jailyn BAPTISTE Pulse Oximetry (65072)By: Geeta On: 29-Nov-2010 Intent Jailyn BAPTISTE Comments: 94% Solu -Medrol Injection, 125 mg On: 29-Nov-2010 Intent (J2930)By: Geeta Jailyn BAPTISTE Comments: Lot #[id number]/1/12Site-right hipDose- 125mggiven by:[facility] Aerosol Treatment (89779)By: On: 29-Nov-2010 Intent Geeta Jailyn BATPISTE Pulse Oximetry (54184)By: Geeta On: 25-Oct-2010 Intent Jailyn BAPTISTE Aerosol Treatment (69637)By: On: 25-Oct-2010 Intent Geeta Jailyn BAPTISTE Radiology - Lumbar SpineBy: On: 14-Oct-2009 Intent Nic aHllman MD, MD, Dana M Radiology - ChestBy: Viji CHANDRA, On: 03-Aug-2009 Intent Nic Kyle MD Comments: PA and Lat monday, please call wet read to [phone] Pulse Oximetry (10210)By: Viji On: 03-Aug-2009 Intent Nic CHANDRA MD, Dana M MAMMOGRAM, SCREENING, BOTH On: 27-Apr-2009 Intent BREASTS (04358)By: Viji CHANDRA, Nic Kyle MD Bone Density StudyBy: Viji CHANDRA, On: 03-Apr-2009 Intent Nic Kyle MD Pulse Oximetry (59687)By: On: 03-Apr-2009 Intent HEAVEN Tran Pulse Oximetry (24404)By: On: 30-Dec-2008 Intent HEAVEN Tran Aerosol Treatment (90138)By: On: 21-Nov-2008 Intent Nic Hallman MD, MD, Dana M Pulse Oximetry (90159)By: On: 21-Nov-2008 Intent HEAVEN Tran Spirometry (91396)By: Marc, On: 29-Sep-2008 Intent HEAVEN Pulse Oximetry (93879)By: On: 29-Sep-2008 Intent HEAVEN Tran Bio Z (65544)By: HEAVEN Tran On: 29-Sep-2008 Intent IMMUNIZ ADMNIN, 1 VAC, SNGL/COMBO On: 30-Jun-2008 Intent (55400)By: Nic Hallman MD, MD, Dana M FLU VAC, SPLIT, >3 YEARS, On: 30-Jun-2008 Intent INTRAMUSC (66438)By: Viji CHANDRA, Comments: Lot #[id number]-left deltoidDose0.5 mlgiven by Nic Pritchett LPN, MD Ultrasound - LiverBy: Viji CHANDRA, On: 30-Jun-2008 Intent Nic Kyle MD Spirometry (92597)By: Marc On: 27-Mar-2008 Intent HEAVEN Pulse Oximetry (53770)By: On: 27-Mar-2008 Intent HEAVEN Tran Bio Z (80256)By: HEAVEN Tran On: 27-Mar-2008 Intent EKG (75425)By: HEAVEN Tran On: 20-Dec-2007 Intent Bio Z (66950)By: Nic Hallman MD On: 20-Sep-2007 Intent Nic Oliveira MD Pulse Oximetry (47504)By: Viji On: 20-Sep-2007 Intent Nic CHANDRA MD, Dana M Bio Z (69987)By: Nic Hallman MD On: 19-Jun-2007 Intent Nic Oliveira MD Bio Z (47669)By: Nic Hallman MD On: 27-Nov-2006 Intent Nic Oliveira MD IV Infusion (79047)By: Marc On: 25-Aug-2006 Intent HEAVEN INFUSION, NORMAL SALINE SOLUTION On: 24-Aug-2006 Intent , 250 CC (J7050)By: Nic Hallman MD, MD, Dana M Rocephin Injection, 2 Gram On: 24-Aug-2006 Intent (J0696)By: Nic Hallman MD Comments: BCXD 023 10/19 Nic Hallman MD THER/PROPH/DIAG IV INF, INIT On: 24-Aug-2006 Intent (51288)By: Nic Hallman MD, MD, Nic Gutierres INFUSION, NORMAL SALINE SOLUTION On: 23-Aug-2006 Intent , 250 CC (J7050)By: Nic Hallman MD, MD, Nic Gutierres Rocephin Injection, 2 Gram On: 23-Aug-2006 Intent (J0696)By: Nic Hallman MD, MD, Dana M THER/PROPH/DIAG IV INF, INIT On: 23-Aug-2006 Intent (86191)By: Nic Hallman MD, MD, Nic Gutierres INFUSION, NORMAL SALINE SOLUTION On: 22-Aug-2006 Intent , 250 CC (J7050)By: Nic Hallman MD, MD, Dana M THER/PROPH/DIAG IV INF, INIT On: 22-Aug-2006 Intent (37755)By: Nic Hallman MD, MD, Dana M Rocephin Injection, 2 Gram On: 22-Aug-2006 Intent (J0696)By: Nic Hallman MD Comments: BCXD 023 OCT 2007. Started an IV right wrist 22 gauge. Infused well. IV left in. Pt will return tomorrow. [facility] Nic Hallman MD Planned Medications INJECTION, KETOROLAC TROMETHAMINE, PER 15 MG Ordered: 09-Feb-2016 Pending Nic Hallman MD, MD, Dana M INJECTION, METHYLPREDNISOLONE SODIUM SUCCINATE, UP TO 125 MG Ordered: 29-Nov-2010 Pending Jailyn Connor CNP INJECTION, PROLIA Ordered: 24-Apr-2014 Pending Nic Hallman MD, MD, Dana M INJECTION, PROLIA Ordered: 30-Oct-2014 Pending Visit, Nurse Instructions Name Dates Details BMI 38.0-38.9,adult : How to access health [...] II without complication Encounters Office Visit On: 11-Jun-2018 11:06 [facility] [...] Long-term (current) use of anticoagulants (Renamed from snf current use of anticoagulant therapy), Obesity, Hypertension, [...] Long-term (current) use of anticoagulants (Renamed from jewel hole rough opener current use of anticoagulant therapy), Congestive heart [...] Long-term (current) use of anticoagulants (Renamed from jewel hole rough opener current use of anticoagulant therapy), Hypothyroidism, Cancer [...] con tributing to the patient's care are manufacturing inspector (Tabby), gastrologist (Markel), computer systems technician (Harjinder) and other: [facility] Dr. Lim in Nursery).Encounter Diagnosis: Obesity, Allergic rhinitis, Postsurgical malabsorption, GERD (gastroesophageal reflux disease), Hypercholesterolemia, Hypertension, Other intervertebral disc degeneration, lumbar region, Controlled diabetes mellitus type II without complication, Tobacco abuse, 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), BMI 36.0-36.9,adult, Long-term (current) use of anticoagulants (Renamed from snf current use of anticoagulant therapy), Congestive heart [...] Long-term (current) use of anticoagulants (Renamed from snf current use of anticoagulant therapy), Other primary [...] Long-term (current) use of anticoagulants (Renamed from jewel hole rough opener current use of anticoagulant therapy), Glenohumeral arthritis, [...] through house. The patient has completed the [facility] preventative measures: PAP smear (2008), mammography (-2014) and colonoscopy (2008). 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 The patient has noticed getting bored and h aving problems with memory than others. Other providers contributing to the patient's care are manufacturing inspector (Dr. Mcnair ), gastrologist (Dr. Jean Baptiste ) and other: (Dr. Soto [facility] ).Encounter Diagnosis: Encounter for general adult medical examination with abnormal findings, Screening mammogram, encounter for, Tobacco abuse, 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), BMI 34.0-34.9,adult, Cancer of thyroid, Encounter for gynecological examination without abnormal finding, Need for Tdap vaccination (Renamed from Need for miuxztqrpd-jegsnnq-lmxiwyqpl (Tdap) vaccine, adult/adolescent), Afib, GERD (gastroesophageal reflux [...] Long-term (current) use of anticoagulants (Renamed from snf current use of anticoagulant therapy) [facility] [...] night. Impact of disease: emotional impact-mild. Nutrition: [facility] ed diet and supplemental vitamins. 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
--- OUTSIDE RECORDS SUMMARY | 2018-11-30 15:41 | XMS RPT_ITS ---
:1950 Author Organization OHIP Care Team Providers Name Role Phone Justyna Santos Attending Unavailable Bonezzi, Justyna Primary Care Unavailable [place], [place] Attending Unavailable Bonecallie, Justyna Referring Unavailable Bonezzi, Justyna Primary Care Unavailable [place], Yosi Attending Unavailable [place], Yosi Referring Unavailable Bonezzi, Justyan Primary Care Unavailable Geraldo Mendoza Attending Unavailable Bonezzi, Justyna Referring Unavailable Bonezzi, Justyna Primary Care Unavailable Michael Ayde Attending Unavailable Bonezzi, Justyna Primary Care Unavailable Justyna Santos Attending Unavailable Justyna Santos Primary Care Unavailable Justyna Santos MD Attending Unavailable Justyna Santos MD Referring Unavailable Justyna Santos MD Consulting Unavailable Gabriel Soto Y Attending Unavailable Justyna Santos. Primary Care Unavailable UNKNOWN, PROVIDER Attending Unavailable Justyna Santos. Primary Care Unavailable PROBLEMS PROBLEMS DATE TYPE CONDITION / CODE ATTENDING STATUS SOURCE 09/24/2018 Unknown E66.9 - Obesity, Justyna Santos Active [place] unspecified / Community E66.9(ICD-10) Hospital Repository 09/17/2018 Admitting Unknown / Charles, Gabriel Active [facility] Medical diagnosis UNK(Unknown) [facility] Repository 02/27/2018 Unknown I48.1 - Persistent [place], [place] Active [facility] [facility] fibrillation / Hospital I48.1(ICD-10) Repository 10/20/2017 Unknown I42.9 - [place], Yosi Active [facility] Cardiomyopathy, Community unspecified / Hospital I42.9(ICD-10) Repository PROCEDURES PROCEDURES No Procedure Records FoundRESULTS RESULTS THYROGLOB QT Collected: 09/21/2018 Status: F Source: [facility] 8:19 AM [facility] REPOSITORY TYPE CODE TESTS RESULT OUT OF RANGE REFERENCE UNITS LAB L500.71887 0.0-0.9 IU/mL Normal THYROGLOB AB < 1.0 Result Comment: Thyroglobulin Antibody measured by [facility] LAB L500.44405 1.5-38.5 ng/mL THYROGLOBULIN Low 0.1 Result Comment: According to the National Academy of Clinical Biochemistry, the reference interval for Thyroglobulin (TG) should be related to euthyroid patients and not for patients who underwent thyroidectomy. TG reference intervals for these patients depend on the residual mass of the thyroid tissue left after surgery. Establishing a post-operative baseline is recommended. The assay limit of quantitation is 0.1 ng/mL Thyroglobulin measured by [facility] [place] [facility] Performed At: [facility] [address] [id number] Dc Reis PhD [id number] Performed By: #### L500.92741 #### [facility] [address] # [phone] [place] THYROID WHOLE Observed: 09/21/2018 Status: F Source: [facility] [place] BODY 7:00 AM [facility] THYROID WHOLE BODY, [place] THYROID WHOLE BODY Ordering Physician: Gabriel Soto MD 09/21/2018 7:00 AM IODINE-131 TOTAL BODY SCAN: Clinical Statement: Malignant neoplasm of the thyroid gland, thyroid ablation dose given 12/03/2014 Comparison: Nuclear medicine thyroid scan 10/07/2016, 09/18/2015, 12/10/2014 Radionuclide: Oral administration of 5.2?mCi iodine-131. Technique: Anterior and posterior whole body images were obtained as well as an anterior image with attention to the neck. Scanning Time: 72 hours after injection of radionuclide. FINDINGS: There is physiologic activity in the salivary glands, nasopharynx, stomach, and bladder. No abnormal uptake of radionuclide is seen in the thyroid bed, neck, chest and abdomen. IMPRESSION: No scintigraphic evidence of recurrent thyroid cancer or metastatic disease. Dictated by Nuclear Medicine Supervisor: Tiffani Hernandez DO Reviewed and Signed by: Ayanna Brice MD ---- Electronic Signature on File ---- Signed By: Ayanna Brice MD [email or web address] Dictated: 09/21/2018 8:26 AM Signed: 09/21/2018 2:12 PM Reported By: AYANNA BRICE M.D. Signed By: AYANNA BRICE M.D. [place] THYROID WHOLE Observed: 09/21/2018 Status: F Source: [facility] [employer] [facility] 7:00 AM [facility] THYROID WHOLE BODY, [place] THYROID WHOLE BODY Ordering Physician: Gabriel Soto MD 09/21/2018 7:00 AM IODINE-131 TOTAL BODY SCAN: Clinical Statement: Malignant neoplasm of the thyroid gland, thyroid ablation dose given 12/03/2014 Comparison: Nuclear medicine thyroid scan 10/07/2016, 09/18/2015, 12/10/2014 Radionuclide: Oral administration of 5.2?mCi iodine-131. Technique: Anterior and posterior whole body images were obtained as well as an anterior image with attention to the neck. Scanning Time: 72 hours after injection of radionuclide. FINDINGS: There is physiologic activity in the salivary glands, nasopharynx, stomach, and bladder. No abnormal uptake of radionuclide is seen in the thyroid bed, neck, chest and abdomen. IMPRESSION: No scintigraphic evidence of recurrent thyroid cancer or metastatic disease. Dictated by Nuclear Medicine Supervisor: Tiffani Hernandez DO Reviewed and Signed by: Ayanna Brice MD ---- Electronic Signature on File ---- Signed By: Ayanna Brice MD [email or web address] Dictated: 09/21/2018 8:26 AM Signed: 09/21/2018 2:12 PM Reported By: AYANNA BRICE M.D. Signed By: AYANNA BRICE M.D. SCREENING MAMM (CAD), Observed: 05/17/2018 Status: F Source: [place] 2:06 PM [facility] REPOSITORY [facility] Imaging Services [address] [place] [id number] SCREENING MAMM (CAD), BILAT MR#: [id number] Acct: [id number] Name: JODI MOMIN Rep #: [id number] : 1950 F 68 From: Aaron Castro MD PCP: Justyna Santos MD Status: REG CLI Study: SCREENING MAMM (CAD), BILAT Date of Exam: 05/17/18 Exam# [id number] Ordering Dr: Ayde Rodriguez DO MAMMOGRAPHY - BILATERAL SCREENING REASON FOR EXAM: Female, 68 years old. Routine annual screening examination. PERTINENT HISTORY: Non-contributory. Remote right stereotactic breast biopsy. TECHNIQUE: Digital bilateral breast chayo (3D mammographic acquisition) in the CC and MLO projections. 2-D mediolateral oblique (MLO) and craniocaudad (CC) views of both breasts were obtained. CAD: Full Field Digital Mammography with Computer Added Detection was performed. COMPARISON: Comparison is made with prior study dated May 16, 2017 and May 12, 2016. FINDINGS: Breast Composition: There are scattered areas of fibroglandular density. There are no dominant masses or suspicious calcifications. Stable benign-appearing bilateral axillary lymph nodes. A stereotactic tissue clip marker is seen in the [...] delay biopsy of a clinically suspicious abnormality. [id number] Electronically Signed: Aaron Castro MD at 15:36 EDT Tel [phone], Service support , CC: Justyna Santos MD; Ayde Rodriguez DO Wash Test Checker: Signed DEXA BONE DENSITY Observed: 05/17/2018 Status: F Source: [place] STUDY 2:06 PM [facility] REPOSITORY [facility] Imaging Services [address] [place] [id number] Dexa Bone Density Study MR#: [id number] Acct: [id number] Name: JODI MOMIN Rep #: [id number] : 1950 F 68 From: Aaron Castro MD PCP: Justyna Santos MD Status: REG CLI Study: Dexa Bone Density Study Date of Exam: 05/17/18 Exam# [id number] Ordering Dr: Ayde Rodriguez DO STUDY: DUAL ENERGY X-RAY ABSORPTIOMETRY / DXA REASON FOR EXAM: Female, 68 years old. Menopause. Loss of height. TECHNIQUE: Bone Mineral Density (BMD) measurements of lumbar spine and bilateral hips were obtained. COMPARISON: Comparison is made with prior study dated February 03, 2016. FINDINGS: Lumbar Spine (L1-L4): g/cm2 (0.992) / T-score (-1.4) / Z-score (0.2) Findings are suggestive of osteopenia with a moderate fracture risk. Left Femur Total: g/cm2 (0.851) / T-score (-1.2) / Z- score (0.1) Left Femoral Neck: g/cm2 (0.706) / T-score (-2.4) / Z- score (-0.8) Right Femur Total: g/cm2 (0.801) / T-score (-1.6) / Z- score (-0.3) Right Femoral Neck: g/cm2 (0.745) / [...] a moderate fracture risk. There has been worsening of bone density since the previous examination. Reference Information: The T-score is the number of standard deviations above or below the standard which is normal for young adults at their peak bone mineral density. The World Health Organization (WHO) interprets the T-scores as follows: Above -1 Normal bone density [...] National Osteoporosis Foundation http://www.nof.org Electronically Signed: Aaron Castro MD at 11:21 EDT Tel [phone], Service support , CC: Justyna Santos MD; Ayde Rodriguez DO Wash Test Checker: Signed CARDIOLOGY VISIT Observed: 04/25/2018 Status: F Source: [place] REPORT 11:45 AM [facility] REPOSITORY [place] [facility] [address] [place] [address] OFFICE VISIT Date of Service: 04/24/18 MR#: [id number] Acct: [id number] Name: JODI MOMIN Rep #: [id number] : 1950 Provider: RIVER Mendoza Age/Sex: 68/F Location: [facility] Status: Signed HPI HPI Details: JODI MOMIN, is a 68 F who presents to the office today for a [facility] vascular outpatient follow-up. She has a history of atrial fibrillation status post ablation at [facility] in 2005, atrial septal defect, and CVA in 2005. Pt. denies chest, arm, jaw, or neck discomfort. Her exercise tolerance is stable. Pt. denies symptoms of palpitations, lightheadedness, dizziness, near syncope, or syncopal episodes. Pt. denies edema or claudication issues. Pt. denies orthopnea, PND, fever, chills, blood in urine, blood in stool, or myalgia. She states getting fatigue easily, but this is not new. She continues get SOB on exertion such as going up and down steps. Her SOB improves with rest and recovers quickly. 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 Accompanied by: Is patient in pain?: No Allergies cephalexin monohydrate [From Keflex] Allergy (Intermediate, Verified 04/24/18 11:20) Hives ciprofloxacin [From Cipro] Allergy (Intermediate, Verified 04/24/18 11:20) Hives ciprofloxacin HCl [From Cipro] Allergy (Intermediate, Verified 04/24/18 11:20) Hives atorvastatin calcium [From Lipitor] Adverse Reaction (Intermediate, Verified 04/24/18 11:20) Pain in joints rosuvastatin calcium [From Crestor] Adverse Reaction (Verified 04/24/18 11:20) Pain in joints some metals Allergy (Intermediate, Uncoded 06/22/16 22:05) Other wool Allergy (Intermediate, Uncoded 06/22/16 22:05) Hives Medications Cetirizine HCl [Zyrtec] 10 mg PO DAILY 05/16/14 [History Confirmed 04/24/18] Citalopram [Celexa] 40 mg PO QHS 05/16/14 [History Confirmed 04/24/18] Docusate Sodium [Colace] 100 mg PO DAILY PRN PRN 05/16/14 [History Confirmed 04/24/18] Ergocalciferol [Vitamin D] 50,000 unit PO QMONTH 05/16/14 [History Confirmed 04/24/18] Ferrous Sulfate 325 mg PO DAILY@0800 05/16/14 [History Confirmed 04/24/18] Lisinopril [Zestril] 20 mg PO QHS 05/16/14 [History Confirmed 04/24/18] Multivitamins,Therapeutic [Multivitamin] 1 tab PO BID 05/16/14 [History Confirmed 04/24/18] Zinc 50 mg PO DAILY 01/11/17 [History Confirmed 04/24/18] levothyroxine 125 mcg tablet 125 mcg PO QDAY tab 10/04/17 [History Confirmed 04/24/18] furosemide 20 mg tablet 20 mg PO QDAY 10/09/17 [History Confirmed 04/24/18] calcitriol 0.25 mcg capsule 0.25 mcg PO BID cap 10/10/17 [History Confirmed 04/24/18] calcium carbonate 600 mg calcium (1,500 mg) tablet 600 mg PO BID tab 10/10/17 [History Confirmed 04/24/18] metoprolol succinate ER 50 mg tablet,extended release 24 hr 50 mg PO QDAY #90 tab 02/27/18 [Rx Confirmed 04/24/18] apixaban 5 mg tablet 5 mg PO BID tab 04/24/18 [History Confirmed 04/24/18] fluticasone 50 mcg/actuation nasal spray,suspension 1 spray INTRANASAL DAILY PRN 04/24/18 [History Confirmed 04/24/18] Ejection fraction %: 50 to 54 [facility] Medical History Ostium secundum atrial septal defect (Chronic) History of stroke (Chronic) Obesity (Resolved) Hyperlipidemia (Chronic) long-term current use of anticoagulant (Chronic) Atrial fibrillation (Chronic) Surgical History History [...] intake frequency: holidays/special occasions only caffeine: Yes Type: coffee Number of servings: 3, tea Number of servings: 2, carbonated beverages Number of servings: 1 ROS Const Const: Positive for fatigue; negative for weakness, body ache, fever(s) or chills ENT ENT: Negative for dizziness Cardio Chest Pain: No Palpitations: No Edema: None Muscle aches with walking: None Resp Respiratory: Positive for SOB with activity; negative for SOB at rest, SOB orthopnea\SOB lying down or paroxysmal nocturnal dyspnea GI GI: Negative nausea, black,tarry stools, bright, red blood in stools or vomiting blood/hematemesis : Negative for hematuria or frequent nighttime urination/ nocturia Musc Musc: Negative for muscle [...] normal, tonsils normal and uvula midline Eyes General: appearance normal, both eyes and all related structures Eyelids: eyelids normal Conjunctivae: conjunctivae normal Pupils: PERRL, normal by confrontation and accommodation normal EOM: EOM intact bilaterally Neck Neck: normal visual inspection, trachea midline and no JVD JVD: +5 Carotids: normal carotid upstroke and bounding pulses Chest Chest inspection: normal inspection of the chest, symmetric chest movement and normal respiratory effort Auscultation: Bilateral: Clear to Auscultation Cardio Palpation: normal PMI Rhythm: irregular rhythm Heart sounds: S1 normal and S2 normal; negative rub, gallop or murmur GI GI: normal to inspection, soft, no hepatosplenomegaly and bowel sounds present Neuro General: alert, awake, oriented x3, no focal sensory deficit, gait normal and moves all extremities Skin Skin: no rashes or lesions noted Extremities Pulses: Normal: Right Femoral Pulse, Left Femoral Pulse, Right Dorsalis Pedis Pulse, Left Dorsalis Pedis Pulse, Right Posterior Tibial Pulse, Left Posterior Tibial Pulse, Right Radial Pulse, Left Radial Pulse Lower Extremity Edema: None: Bilateral Musculoskel Musculoskeletal: No joint tenderness Psych Psychological: normal affect Supplemental Info 24 hour Holter monitor from June 2017 showed average heart rate of 79 bpm in atrial fibrillation, minimum heart rate of 34 bpm in atrial fibrillation, maximum heart rate of 158 bpm in atrial fibrillation, ventricular ectopy comprising of 0.2%, longest R to R interval of 2.6 seconds, no ventricular tachycardia, 99.8% of scan in atrial fibrillation, and patient did not keep diary. 24 hour Holter monitor from February 2015 showed atrial fibrillation, average heart rate of 100 bpm, minimum heart rate of 43 beats minute, and maximum heart rate of 185 bpm, longest R to R interval was 1.8 seconds and patient was in atrial fibrillation 99.4% total time. Heart catheterization from May 2014 showed left main with no significant stenosis, LCx with no significant stenosis, LAD with no significant stenosis, RCA with no high-grade stenosis, and ejection fraction of 50 55% with no wall motion abnormalities. Stress test from April 2014 showed mild ischemia and preserved ejection fraction. Echocardiogram from March 2013 showed normal LV size, estimated ejection fraction 50%, mild mitral valve insufficiency, mild tricuspid valve insufficiency and an RVSP of 22 mmHg. Assessment AND Plan 1. Persistent atrial fibrillation I48.1 Plan - SAI Medel Her Holter monitor in 2016 showed atrial fibrillation with an average heart rate of 79 bpm. Her heart rate remains well controlled today. She will continue metoprolol and Eliquis. We will continue to monitor. 2. Dyspnea on exertion R06.09 Plan - SAI Medel Patient does continue to have dyspnea on exertion. This has not worsened and tends to recover quickly. At this time we will continue to monitor. 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 Plan Detail Additional Comments - SAI Medel Discussed the above patient with Dr. Chowdhury, he agrees with the plan of care. Thank you for allowing us to participate in the patients plan of care, if you have any questions please do not hesitate to call. This note was generated using a voice recognition system and there may be incorrect words, spelling or punctuation that were not noted when reviewing the office note prior to saving. 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 [place] [address] OFFICE VISIT Date of Service: 10/10/17 MR#: [id number] Acct: [id number] Name: JODI MOMIN Rep #: [id number] : 1950 Provider: Yosi Chowdhury MD Age/Sex: 67/F Location: [facility] Status: Signed HPI 3 M FU (we moved from 09-26-17): Chief Complaint: Follow-up visit. Details: JODI MOMIN, is a 67 F who presents to the office today for a follow-up visit. She is a lady with a history of atrial fibrillation chronic persistent history of atrial septal defect and a CVA who returns for follow-up visit. She denies any chest pain or shortness of breath or paroxysmal nocturnal dyspnea or pedal edema. She has not had any dizziness or diaphoresis or near syncope or syncope. She remains on her anticoagulation. In addition she has not had any neurological events either. Her physical exam today demonstrates clear lung blue irregular regular heart rate and no pedal edema. Intake Vital Signs10/10/17 Height 4 ft 9 in 10/10/17 Weight: 158 lb 10/10/17 Body Mass Index (BMI) 34.2 10/10/17 Blood Pressure 100/50 Intake Visit Reasons: 3 M FU (we moved from 09-26-17) Is patient in pain?: No Allergies cephalexin monohydrate [From Keflex] Allergy (Intermediate, Verified 10/10/17 14:35) Hives ciprofloxacin [From Cipro] Allergy (Intermediate, Verified 10/10/17 14:35) Hives ciprofloxacin HCl [From Cipro] Allergy (Intermediate, Verified 10/10/17 14:35) Hives metoprolol Adverse Reaction (Severe, Verified 10/10/17 14:35) Bradycardia atorvastatin calcium [From Lipitor] Adverse Reaction (Intermediate, Verified 10/10/17 14:35) Pain in joints rosuvastatin calcium [From Crestor] Adverse Reaction (Verified 10/10/17 14:35) Pain in joints some metals Allergy (Intermediate, Uncoded 06/22/16 22:05) Other wool Allergy (Intermediate, Uncoded 06/22/16 22:05) Hives Medications Cetirizine HCl [Zyrtec] 10 mg PO DAILY 05/16/14 [History Confirmed 10/09/17] Citalopram [Celexa] 40 mg PO QHS 05/16/14 [History Confirmed 10/09/17] Docusate Sodium [Colace] 100 mg PO DAILY PRN PRN 05/16/14 [History Confirmed 10/09/17] Ergocalciferol [Vitamin D] 50,000 unit PO QMONTH 05/16/14 [History Confirmed 10/09/17] Ferrous Sulfate 325 mg PO DAILY@0800 05/16/14 [History Confirmed 10/09/17] Fluticasone 0.05% [Flonase Nasal [place]] 1 spray NASAL DAILY 05/16/14 [History Confirmed 10/09/17] Lisinopril [Zestril] 20 mg PO QHS 05/16/14 [History Confirmed 10/09/17] Multivitamins,Therapeutic [Multivitamin] 1 tab PO BID 05/16/14 [History Confirmed 10/09/17] Zinc 50 mg PO DAILY 01/11/17 [History Confirmed 10/09/17] denosumab 60 mg/mL subcutaneous syringe 60 mg SC [id number] 10/04/17 [History Confirmed 10/09/17] levothyroxine 125 mcg tablet 125 mcg PO QDAY tab 10/04/17 [History Confirmed 10/09/17] lorazepam 0.5 mg tablet 0.5 mg PO BID PRN tab 10/04/17 [History Confirmed 10/09/17] furosemide 20 mg tablet 20 mg PO QDAY 10/09/17 [History Confirmed 10/09/17] metoprolol succinate ER 50 mg tablet,extended release 24 hr 50 mg PO QDAY tab 10/09/17 [History Confirmed 10/09/17] apixaban 5 mg tablet 5 mg PO .COMPLEX 10/10/17 [History Confirmed 10/09/17] calcitriol 0.25 mcg capsule 0.25 mcg PO BID cap 10/10/17 [History Confirmed 10/10/17] calcium carbonate 600 mg calcium (1,500 mg) tablet 600 mg PO BID tab 10/10/17 [History Confirmed 10/10/17] Ejection fraction %: 50 to 54 [facility] Medical History Ostium secundum atrial septal defect (Chronic) History of stroke (Chronic) Obesity (Resolved) Hyperlipidemia (Chronic) long-term current use of anticoagulant (Chronic) Atrial fibrillation (Chronic) Surgical History History [...] sleepiness, difficulty sleeping, weight gain, weight loss, increased appetite, poor appetite, anorexia, frequent falls, headache(s), [...] paroxysmal nocturnal dyspnea or other GI GI: Negative nausea, vomiting, heartburn, constipation, belching, bloating, cramping, vomiting blood/hematemesis, bright, red blood in stools, black,tarry stools, loose stools, Difficulty Swallowing or other Musc Musc: Positive for joint pain (arthritis); negative for muscle aches/ myalgia, muscle weakness or balance problems Neuro Neuro: Negative for dizziness, Negative for lightheadedness, Negative for near syncope, Negative for syncope, Negative for orthostatic symptoms, Negative for frequent falls, Negative for headache(s), Negative for weakness, Negative for confusion, Negative for memory loss, Negative for restless legs, Negative for blurry vision, Negative for double vision, Negative for vertigo, Negative for seizures, Negative for lack of coordination, Negative for other Endo Endo: Negative for fatigue, cold intolerance, heat intolerance, excessive sweating, flushing, increased thirst/drinking, increased hunger, hair loss, hair growth or other Cardiology Exam Const Appearance: cooperative, healthy appearing, [...] normal, tonsils normal and uvula midline Eyes General: appearance normal, both eyes and all related structures Eyelids: eyelids normal Conjunctivae: conjunctivae normal Pupils: PERRL, normal by confrontation and accommodation normal EOM: EOM intact bilaterally Neck Neck: normal visual inspection, trachea midline and no JVD JVD: +5 Carotids: normal carotid upstroke and bounding pulses Chest Chest inspection: normal inspection of the chest, symmetric chest movement and normal respiratory effort Auscultation: Bilateral: Clear to Auscultation Cardio Palpation: normal PMI Rhythm: irregular rhythm Heart sounds: S1 normal and S2 normal GI GI: normal to inspection, soft, no hepatosplenomegaly and bowel sounds present Neuro General: alert, awake, oriented x3, no focal sensory deficit, gait normal and moves all extremities Skin Skin: no rashes or lesions noted Extremities Pulses: Normal: Right Femoral Pulse, Left Femoral Pulse, Right Dorsalis Pedis Pulse, Left Dorsalis Pedis Pulse, Right Posterior Tibial Pulse, Left Posterior Tibial Pulse, Right Radial Pulse, Left Radial Pulse Lower Extremity Edema: None: Bilateral Musculoskel Musculoskeletal: No joint tenderness Psych Psychological: normal affect Assessment AND Plan 1. Persistent atrial fibrillation I48.1 Plan She does have chronic persistent atrial fibrillation with a controlled ventricular response rate. She had previously been on Xarelto but her insurance has denied further coverage and has approved Eliquis. She is for being switched to this. Her last echocardiogram had demonstrated any fraction of approximately 50% and she has not had any heart failure symptoms. My recommendation will be to continue the same without any changes. Thank you for allowing me to participate in her care. Orders Orders: 2. Cardiomyopathy, unspecified type I42.9 Plan She did have a cardiomyopathy and her ejection fraction had improved but with her chronic persistent atrial fibrillation my recommendation will be to repeat her echocardiogram to see whether her ejection fraction is remaining close to normal. Her last evaluation was over 5 years ago. Plan Detail Follow Up 6 Months (mmm) Coding Level of Care Code Off vis,est,level 3 Diagnoses Persistent atrial fibrillation I48.1 Atrial fibrillation type: persistent Cardiomyopathy, unspecified type I42.9 Cardiomyopathy type: unspecified 10/10/17 1504 <Electronically signed by Yosi Chowdhury MD> Date Yosi Chowdhury MD Cosigner Signature: Date (if applicable) CC: Justyna Santos MD ALLERGIES ALLERGIES DATE TYPE / CODE NAME / CODE REACTION SEVERITY SOURCE Drug ciprofloxacin Hives [place] 8 Allergy/508441268( HCl/O175795759(RX Community SNOMED CT) NORM) Hospital Repository Drug atorvastatin Pain in joints [place] 8 Allergy/915859046( calcium/E97853810 Community SNOMED CT) 2(RXNORM) Hospital Repository Drug cephalexin Hives [place] 8 Allergy/110077726( monohydrate/F0000 Community SNOMED CT) 69780(RXNORM) Hospital Repository Drug rosuvastatin Pain in joints Unknown [place] 8 Allergy/944720081( calcium/M21107583 Community SNOMED CT) 3(RXNORM) Hospital Repository Drug ciprofloxacin/F00 Hives MO [place] 8 Allergy/588436244( 3584458(RXNORM) [facility] SNOMED CT) Hospital Repository Drug metoprolol/K88674 BRADYCARDIA SV [place] 8 Allergy/570701452( 3627([facility]NORM[facility] Miscellaneous some metals Other [place] 6 Allergy/198548152( [facility] SNOMED CT) Hospital Repository Miscellaneous wool Hives [place] 6 [facility]5030( [facility] ENCOUNTERS ENCOUNTERS ADMIT/DISCHARGE ACCOUNT ADMITTING ENCOUNTER LOCATION SOURCE NUMBER CLASS 09/25/2018 [id number] Ambulatory [place] 2 [facility] ing:DC Repository 09/21/2018 [id number] Ambulatory [facility] 2 [facility] g:H.LAB Repository 09/17/2018 [id number] Ambulatory [address] g:H.NM Repository 08/30/2018/ [id number] Ambulatory [place] Frank[place] 8 8 [facility] ing:DC Repository 07/31/2018 [id number] Ambulatory Building:[facility] OHIP Practices Repository 05/17/2018 [id number] Ambulatory [place] 8 [facility] ing:OPBD Repository 04/24/2018/ [id number] Ambulatory BMSBuilding:B [place] 8 0 [facility] Repository 10/26/2017 [id number] Ambulatory [place] 6 [facility] ing:CVS Repository 10/10/2017/ [id number] Ambulatory BMSBuilding:B [place] 8 4 [facility] Repository PAYERS PAYERS ENCOUNTER GUARANTOR PAYER SUBSCRIBER SOURCE 09/25/2018 JODI Stuart Primary JODI [id number] Insurance:[facility]IC[facility]: [facility] PART A [facility] [id number] Number: Repository [id number]: [phone] [id number] [phone] () Date:2018-08-28 09/25/2018 Secondary JODI Wilkins Insurance:[employer]HEMPCitizens BaptistB: [facility] Number: [id number] [facility] [id number] Repository e Date:2576-88-35BF [id number] [place] [address] 40766AQ: 09/25/2018 Tertiary NOT GIVENUNK [place] Insurance:SELF PAY [facility]: Effective Repository Date:2018-09-11 09/21/2018 JODI L Primary JODI L [facility] [id number] Insurance:MEDICAREPo [place] licy Number: [place] [id number]: ([phone]) Date:2016-01-10P O [phone] () [address] CODE [id number] [place] [address]GL: 09/21/2018 Secondary JODI L [facility] Insurance:ANTHEM [place] [facility] [place] MEDICARE SECONDARY Repository ONLYPolicy Number: [id number] e Date:3474-27-32JP [address] [place] [address] 64199ZU: 09/17/2018 JODI L Primary JODI L [facility] [id number] Insurance:MEDICAREPo [place]ACK[place]UNK [place] licy Number: Repository HUSSEIN ri [id number]: ([phone]) Date:2016-01-10P O [phone] () [address] CODE [id number] [place] [address]QN: 09/17/2018 Secondary [facility]I L [facility] Insurance:[facility] MEDICARE SECONDARY Repository ONLYPolicy Number: [id number] e Date:0346-25-91XY [address] [place] [address] 81034ZU: 08/30/2018 JODI L Primary JODI L [place] [id number] Insurance:MEDICARE JACKSONDOB: [facility] PART A BPolicy [id number] Hospital [facility] [place] Number: Repository [address]Olz: [phone] [id number] [phone] (HP) Date:2018-08-28 08/30/2018 Secondary JODI L [place] Insurance:ANTHEMPoli JACKSONDOB: Community cy Number: [id number] Hospital [id number] Repository e Date:1754-41-59RZ [address]QPRTBFB [place] [address]XR: 08/30/2018 Tertiary NOT GIVENUNK [place] Insurance:SELF PAY [facility] Number: Effective Repository Date:2018-08-28 07/31/2018 JODI L Primary JODI L OHIP Practices JACKSONDOB: Insurance:MedicarePo JACKSONDOB: Repository [id number] licy Number: [id number] [place] [id number] 0 [place], [place] Date:5260-84-46Rjyu [place], [place] [address]Own: ([phone]) Name:[facility] [address]Cjn: (HP)Tel: 765492Qiyyevwn, [place] [phone] () 432[address]WP: [phone]) (CS) [phone] 07/31/2018 Secondary JODI L OHIP Practices Insurance:[place]/Sup JACKSONDOB: Repository [facility] [id number] Number: [address] [place] [id number] [place], [place] e [address]Rkv: (798) Date:9183-56-84Mmev [phone] (HP) Name:[facility] [address], [place] [id number]: 07/31/2018 Tertiary JODI L OHIP Practices Insurance:Medical JACKSONDOB: Repository [facility] [id number] Number: 0 [place] [id number] [place] e Date:2006-01-09 59[address]Xql: [phone] 1865-20-49Hoda [phone] (HP) Name:[facility] [address], [place] [id number]: 07/31/2018 Tertiary JODI L OHIP Practices Insurance:Medical JACKSONDOB: Repository [facility] [id number] Number: 0 Chapo [id number] [place], [place] e Date:2009-09-11 510[address]Isr: [phone] [id number] [phone] (HP) Name:[address] [id number]: 07/31/2018 Tertiary JDOI L [place] Practices Insurance:Medical JACKSONDOB: Repository [facility] [id number] Number: 0 Chapo [id number] [place], [place] e Date:2015-09-11 [address]Ami: [phone] [id number] [phone] (HP) Name:[address] [id number]: 05/17/2018 JODI L Primary JODI L [place] [id number] Insurance:MEDICARE JACKSONDOB: [facility] [id number] Number: Repository [id number]: [phone] [id number] [phone] () Date:2017-12-11 05/17/2018 Secondary JODI L [place] Insurance:ANTHEMPoli JACKSONDOB: [facility] Number: [id number] Hospital [id number] Repository e Date:8261-26-74DA [address] [place] [address] 18[address]RC: 05/17/2018 Tertiary NOT GIVENUNK [place] Insurance:SELF PAY [facility] Number: Effective Repository Date:2017-12-11 04/24/2018 JODI L Primary JODI L [place] [id number] Insurance:MEDICARE JACKSONDOB: [facility] [id number] Number: Repository [address]Ycx: [phone] [id number] [phone] (HP) Date:2018-04-13 04/24/2018 Secondary JODI L [place] Insurance:ANTHEMPoli JACKSONDOB: Community cy Number: [id number] Hospital [id number] Repository e Date:0617-20-31SD [address], [place] [address]HW: 04/24/2018 Tertiary NOT GIVENUNK [place] Insurance:SELF PAY [facility] Number: Effective Repository Date:2018-04-24 10/26/2017 JODI L Primary JODI L [place] [id number] Insurance:MEDICARE JACKSONDOB: [id number] [place] Number: Repository [address]Lyx: [phone] [id number] [phone] (HP) Date:2017-10-10 10/26/2017 Secondary JODI L [place] Insurance:ANTHEMPoli JACKSONDOB: [facility] cy Number: [id number] [id number] Repository e Date:7722-24-78XE [address]VBJH[address], [place] [address]EO: 10/26/2017 Tertiary NOT GIVENUNK [place] Insurance:SELF PAY [facility] Number: Effective Repository Date:2017-10-10 10/10/2017 JODI L Primary JODI L [place] [id number] Insurance:MEDICARE JACKSONDOB: [facility] [id number] Number: Repository [id number]: [phone] [id number] [phone] (HP) Date:2017-08-16 10/10/2017 Secondary JODI L [place] Insurance:ANTHEMPoli JACKSONDOB: [facility] cy Number: [id number] Healthcare [id number] Repository e Date:8586-21-73FX [address]VFNVTSY, [place] [address]SN: 10/10/2017 Tertiary NOT GIVENUNK [place] Insurance:SELF PAY [facility] Number: Effective Repository Date:2017-08-16
== END 2018-08-30 23:59 ==
LOC: DC 10:00
PROVIDERS: Family Provider Internal Medicine; PCP Internal Medicine; Visit Provider Internal Medicine
DX: E66.9 Obesity, unspecified (principal); E11.9 Type 2 diabetes mellitus without complications; Z71.3 Dietary counseling and surveillance
CPT/HCPCS: 97802; G0108

== ENCOUNTER → 2018-11-06 13:06 | Outpatient (CLI) | payer MEDICARE, BC, SELFPAY ==
[2018-10-23 13:20] VITALS: BMI 37.4
--- NOTE | 2018-11-06 13:09 | ECHOD_ITS ---
Reason For Study: AFIB Procedure This was a 2D Doppler, Color Flow transthoracic echocardiogram. Exam performed in department. Left Ventricle Normal LV size. The estimated ejection fraction is 45 %. Unable to assess diastolic dysfunction due to arrhythmia. No regional wall motion abnormalities noted. Right Ventricle Normal RV size. Normal systolic function. Atria The left atrium is moderately enlarged. The right atrium is mildly enlarged. Mitral Valve Normal mitral valve. Mild (1+) eccentric mitral valve insufficiency. Tricuspid Valve Normal tricuspid valve. Mild (1+) tricuspid valve insufficiency. Pulmonary artery systolic pressure is 30 mmHg. Aortic Valve Normal aortic valve. Trisinus/trileaflet aortic valve. Pulmonic Valve Normal pulmonic valve. Great Vessels Normal aortic root. The pulmonary artery is normal size. Normal inferior vena cava. Pericardium/Pleural No pericardial effusion. MMode/2D Measurements & Calculations LVIDd: 4.9 cm IVSd: 0.81 cm Ao root diam: 3.4 cm LVIDs: 3.7 cm LVPWd: 0.80 cm RVDd: 4.0 cm FS: 24.2 % LAV(MOD-bp): 83.7 ml EDV(MOD-sp4): 79.8 ml EDV(MOD-sp2): 70.9 ml LAV(MOD-bp) Indexed: 50.3 ml/m2 ESV(MOD-sp4): 42.1 ml EF(MOD-sp2): 67.1 % LAV(MOD-sp2): 78.1 ml EF(MOD-sp4): 47.3 % LAV(MOD-sp4): 77.3 ml SV(MOD-sp4): 37.7 ml SV(MOD-sp2): 47.6 ml LA A4 area: 26.5 cm2 LA dimension(2D): 4.9 cm RA A4 area: 21.8 cm2 Time Measurements MV dec time: 0.15 sec Doppler Measurements & Calculations MV E max luis: 111.7 cm/sec Ao V2 max: 128.6 cm/sec LV V1 max: 94.1 cm/sec Ao max P.6 mmHg LV V1 max P.6 mmHg PA V2 max: 87.2 cm/sec PI end-d luis: 123.1 cm/sec TR max luis: 249.6 cm/sec TR max P.0 mmHg Interpretation Summary Normal LV size. The estimated ejection fraction is 45 %. No regional wall motion abnormalities noted. Unable to assess diastolic dysfunction due to arrhythmia. Mild (1+) eccentric mitral valve insufficiency. Mild (1+) tricuspid valve insufficiency. Ordering Physician: Yosi Chowdhury Referring Physician: BENEDICTO HALLMAN Performed By: Sherice Ni, RDCS, RVT
== END ==
PROVIDERS: Family Provider Internal Medicine; PCP Internal Medicine; Referring Provider Internal Medicine Cardiovascular Disease; Visit Provider Internal Medicine Cardiovascular Disease
DX: I48.1 Persistent atrial fibrillation (principal)
CPT/HCPCS: 93306

== ENCOUNTER → 2019-09-02 15:10 | Outpatient (CLI) | payer MEDICARE, OTHER, SELFPAY ==
[2018-10-23 13:20] VITALS: BMI 37.4
--- NOTE | 2019-09-02 15:13 | BI_ITS ---
MAMMOGRAPHY - BILATERAL SCREENING 3-D TOMOSYNTHESIS REASON FOR EXAM: Female, 69 years old. NO FAM HX -- HX OF RT STEREO BX 2008 P/H OF THYROID CA 08/2014 HAD IODINE RAD TX PERTINENT HISTORY: No significant family history. TECHNIQUE: 2-D mammograms and 3-D Tomosynthesis of the breast (s) were performed. CAD was performed. COMPARISON: 05/17/2018, 05/16/2017 FINDINGS: The breast composition is composed of scattered fibroglandular density. Postbiopsy change on the right. Scattered benign calcifications are seen. No dense spiculated masses or suspicious microcalcifications are identified. No architectural distortion is identified. There is no skin thickening or retraction. There has been no significant change since the prior study. BI/SCREEN MAMM (CAD) W/MANINDER BILAT IMPRESSION: No mammographic signs of malignancy. Routine yearly mammograms recommended. ASSESSMENT CATEGORY: BIRADS Category 2: Benign. A letter regarding these results will be sent to the patient by the facility within 30 days. FOLLOW UP RECOMMENDATION: Yearly follow up mammogram recommended. (A) Approximately 10% of breast cancers are not detected by mammography. A normal mammogram should not delay biopsy of a clinically suspicious abnormality. Electronically Signed: Riki Coker MD at 14:38 EST Tel [phone], Service support ,
--- NOTE | 2019-09-02 15:48 | MRI_ITS ---
ACR Level 3 findings have been noted. An addendum which confirms receipt of the report will follow. STUDY: MRI BRAIN WITH AND WITHOUT CONTRAST REASON FOR EXAM: Female, 69 years old. memory loss -- hx of stroke, hx thyroid cancer TECHNIQUE: Standardized multiplanar fat and water weighted pulse sequences were obtained. dotarem 16 ml iv was administered for the contrast portion of the examination. COMPARISON: None. FINDINGS: Normal size of the ventricles and extra-axial spaces for the patient''s age. There are a limited number of small white matter hyperintensities, distributed throughout the deep white matter tracts of the cerebral hemispheres, consistent with mild chronic white matter ischemic changes. Normal bilateral basal ganglia. Normal thalami. There is no extra-axial fluid accumulation. Normal flow voids within the major intracranial circulation suggesting patency by spin echo criteria. Normal venous enhancement. There is no enhancing intra-axial or extra-axial abnormality. Normal sella turcica, pituitary gland, infundibular stalk, optic chiasm and hypothalamus. Normal tectal plate and pineal gland. Normal midbrain, camden and medulla. Normal cerebellum. Normal basal cisterns. Normal bilateral temporal bones. Normal bilateral internal auditory canals. There is a 2.5 cm enhancing left frontal and right parietal calvaria lesions (axial image #16 and 17 series 7) MRI/Brain W/WO Contrast IMPRESSION: No acute intracranial abnormality or masses. Enhancing calvarial lesions. Metastatic disease is not excluded. Further evaluation with bone scan can be obtained. Electronically Signed: Tahira Pearson MD at 9:34 EST Tel , Service support ,
[2019-09-02 16:21] LABS: CREATININE FINGERSTICK 0.7 mg/dL (0.55-1.02); EGFR FINGERSTICK > 60.0000 mL/min (>60)
== END ==
PROVIDERS: Family Provider Internal Medicine; PCP Internal Medicine; Referring Provider Internal Medicine; Visit Provider Internal Medicine
DX: R41.3 Other amnesia (principal); Z12.31 Encounter for screening mammogram for malignant neoplasm of breast
CPT/HCPCS: 70553; 77063; 77067

== ENCOUNTER → 2019-09-23 09:59 | Outpatient (CLI) | payer MEDICARE, OTHER, SELFPAY ==
[2018-10-23 13:20] VITALS: BMI 37.4
--- NOTE | 2019-09-23 10:02 | NM_ITS ---
CLINICAL: 69-year-old female with reported history of left frontal and right parietal calvarial radiographic abnormalities. WHOLE BODY 99m Tc MDP RADIONUCLIDE BONE SCINTIGRAPHY COMPARISON: Previous whole body bone scintigraphy study dated 05/12/2017, MRI of the brain report 09/02/2019 FINDINGS: Following the intravenous administration of 25.3 mCi of 99m Tc MDP, whole body bone images reveal: 1. Newly visualized increased radiopharmaceutical concentration is noted in the left anterior frontal calvarium appears to correlate with the anatomic changes defined on MRI of the brain report dated 09/02/2019. Meticulous inspection of the right parietal calvarium demonstrates no evidence of asymmetric increased tracer distribution. 2. Facilitated uptake is defined in the visualized left wrist and hand, bilateral knees, right and left ankles, the midfoot bilaterally, mid cervical spine posteriorly on the right, lower cervical spine posteriorly on the left, the fourth thoracic rib posteriorly on the right, 11 thoracic rib posteriorly on the left and right. 3. The remaining skeletal structures are scintigraphically unremarkable with normal-appearing renal images and urinary bladder activity identified. The previously identified bilateral rib and left femoral neck abnormalities are not readily apparent on the present examination. NM/Bone Scan Whole Body IMPRESSION: 1. The increased radiopharmaceutical concentration currently visualized in the left frontal calvarium appears to correlate with the anatomic findings demonstrated on MRI of the brain report dated 09/02/2019. 2. Degenerative arthritis appears expressed in the left wrist and hand, knee articulations bilaterally, both ankles, right-left midfoot, cervical and thoracic spine. 3. Special attention paid to the right parietal skull demonstrates no significant increase in tracer distribution on the present examination. Overall compared to the previous whole body bone scintigraphy study dated 05/12/2017, increased uptake noted in the left frontal calvarium is of uncertain etiology. Histopathologic sampling may be indicated. Otherwise, there is no significant interval change with resolution of the left proximal femur and bilateral rib scintigraphic abnormalities. Electronically Signed: Jorge Marroquin DO at 19:34 EST Tel , Service support ,
== END ==
PROVIDERS: Family Provider Internal Medicine; PCP Internal Medicine; Referring Provider Internal Medicine; Visit Provider Internal Medicine
DX: M89.9 Disorder of bone, unspecified (principal)
CPT/HCPCS: 78306

== ENCOUNTER → 2019-10-16 09:54 | Outpatient (CLI) | payer MEDICARE, OTHER, SELFPAY ==
[2018-10-23 13:20] VITALS: BMI 37.4
[2019-10-16 12:46] LABS: Anion Gap 4 (5-15); BUN 18 mg/dL (7-18); BUN/Creat Ratio 22.8 RATIO (10-20); Calcium,Total 9.7 mg/dL (8.5-10.1); Chloride 108 mmol/L (98-107); Creatinine, Serum 0.79 mg/dL (0.55-1.20); EST Glomerular Filtration Rate 77 mL/min (>60); Est Glom Filt Rate - Afr Amer 93 mL/min (>60); Glucose 104 mg/dL (70-110); Potassium 4.1 mmol/L (3.5-5.1); Sodium Level 141 mmol/L (136-145); T4 Free Direct 1.14 ng/dL (0.76-1.46); Thyroid Stim Hormone (TSH) 0.18 uIU/mL (0.358-3.74)
== END ==
PROVIDERS: PCP Internal Medicine; Referring Provider Nurse Practitioner Adult Health; Visit Provider Nurse Practitioner Adult Health
DX: C73 Malignant neoplasm of thyroid gland (principal); E83.51 Hypocalcemia
CPT/HCPCS: 36415; 80048; 82330; 84439; 84443

== ENCOUNTER → 2020-06-02 13:01 | Outpatient (CLI) | payer MEDICARE, OTHER, SELFPAY ==
[2018-10-23 13:20] VITALS: BMI 37.4
--- NOTE | 2020-06-02 13:07 | BD_ITS ---
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 COMPARISON: Comparison is made with prior examination dated 05/17/2018. FINDINGS: Lumbar Spine (L1-L4): g/cm2 (1.146) / T-score (-0.5) / Z-score (1.2) Findings are suggestive of normal bone density with a low fracture risk. Left Femur Total: g/cm2 (0.884) / T-score (-1.0) / Z-score (0.4) Left Femoral Neck: g/cm2 (0.755) / T-score (-2.0) / Z-score (-0.4) Right Femur Total: g/cm2 (0.786) / T-score (-1.8) / Z-score (-0.3) Right Femoral Neck: g/cm2 (0.734) / T-score (-2.2) / Z-score (-0.5) The T-Scores on the most recent prior examination were: Lumbar Spine (L1-L4): There has been improvement of bone density since the previous examination. Left Femur Total: which represents an improvement of 3.9%. Right Femur Total: which represents a worsening of 1.9%. BD/Dexa Bone Density Study IMPRESSION: The patient is considered osteopenic as outlined below according to World Stanton Organization (WHO) criteria with a high fracture risk. There has been improvement of bone density since the previous examination. Reference Information: The T-score is the number of standard deviations above or below the standard which is normal for young adults at their peak bone mineral density. The World Health Organization (WHO) interprets the T-scores as follows: Above -1 Normal bone density Between -1 and -2.5 Osteopenia Equal to / or below -2.5 Osteoporosis As a practical clinical guideline, osteopenia may be graded as follows: Mild -1 through -1.5 Moderate -1.6 through -2.0 Severe -2.1 through -2.4 The Z-score is the number of standard deviations above or below age-matched controls. A Z-score of less than -1.5 would be considered abnormal. References: 1. NIH Osteoporosis and Related Bone Diseases http://www.osteo.org 2. International Society for Clinical Densitometry http://www.iscd.org 3. National Osteoporosis Foundation http://www.nof.org Electronically Signed: Aaron Castro, at 15:39 EDT , Service support ,
--- NOTE | 2020-06-02 14:18 | CT_ITS ---
STUDY: CT BRAIN WITHOUT CONTRAST REASON FOR EXAM: Female, 70 years old. LT FRONTAL SANTY LESIONS RADIATION DOSAGE (If Supplied By Facility): CTDIvol = ( 44.99 ) mGy, DLP = ( 779.24 ) mGycm TECHNIQUE: Transaxial CT imaging of the brain was performed without administration of intravenous contrast material. Individualized dose optimization techniques were used for this CT. COMPARISON: No relevant priors. FINDINGS: Normal soft tissue structures. There is hyperostosis frontalis internus. Focal area of the increased sclerosis is seen in the anterior left frontal bone. There is mild cerebral atrophy with widening of the extra-axial spaces and ventricular dilatation. Normal white matter tracts of the cerebral hemispheres. Normal basal ganglia and thalami. Normal brainstem. Normal cerebellum. There is no intracranial hemorrhage. There are no findings of an acute ischemic infarction. Normal visualized paranasal sinuses. CT/Brain/Head without Contrast IMPRESSION: Chronic involutional changes of the brain. Focal area of increased sclerosis is seen in the anterior aspect of the left frontal bone Electronically Signed: Aaron Castro, at 15:09 EDT , Service support ,
== END ==
PROVIDERS: PCP Internal Medicine; Referring Provider Internal Medicine; Visit Provider Internal Medicine
DX: M81.0 Age-related osteoporosis without current pathological fracture (principal)
CPT/HCPCS: 70450; 77080

== ENCOUNTER → 2020-06-09 15:24 | Outpatient (CLI) | payer MEDICARE, OTHER, SELFPAY ==
[2018-10-23 13:20] VITALS: BMI 37.4
[2020-06-09 18:29] LABS: T4 Free Direct 1.61 ng/dL (0.76-1.46); Thyroid Stim Hormone (TSH) 0.11 uIU/mL (0.358-3.74)
== END ==
PROVIDERS: PCP Internal Medicine; Referring Provider Nurse Practitioner Adult Health; Visit Provider Nurse Practitioner Adult Health
DX: E89.0 Postprocedural hypothyroidism (principal)
CPT/HCPCS: 36415; 84439; 84443

== ENCOUNTER → 2020-10-14 11:40 | Outpatient (CLI) | payer MEDICARE, OTHER, SELFPAY ==
[2018-10-23 13:20] VITALS: BMI 37.4
[2020-10-14 15:54] LABS: Anion Gap 7 (5-15); BUN 14 mg/dL (7-18); BUN/Creat Ratio 15.8 RATIO (10-20); Calcium,Total 9.3 mg/dL (8.5-10.1); Chloride 106 mmol/L (98-107); Creatinine, Serum 0.88 mg/dL (0.55-1.02); EST Glomerular Filtration Rate 67 mL/min (>60); Est Glom Filt Rate - Afr Amer 81 mL/min (>60); Glucose 104 mg/dL (74-106); Potassium 4.1 mmol/L (3.5-5.1); Sodium Level 138 mmol/L (136-145); T4 Free Direct 0.67 ng/dL (0.76-1.46)
[2020-10-16 20:23] LABS: Anti-Thyroglobulin AB < 1.0 IU/mL (0.0-0.9); Thyroglobulin, Serum Qt. < 0.1 ng/mL (1.5-38.5)
== END ==
PROVIDERS: PCP Internal Medicine; Referring Provider Nurse Practitioner Adult Health; Visit Provider Nurse Practitioner Adult Health
DX: C73 Malignant neoplasm of thyroid gland (principal); E83.51 Hypocalcemia
CPT/HCPCS: 36415; 80048; 82330; 84432; 84439; 84443; 86800

== ENCOUNTER → 2020-11-18 12:44 | Outpatient (CLI) | payer MEDICARE, OTHER, SELFPAY ==
[2018-10-23 13:20] VITALS: BMI 37.4
[2020-11-18 15:47] LABS: Thyroid Stim Hormone (TSH) 9.34 uIU/mL (0.358-3.74)
== END ==
PROVIDERS: PCP Internal Medicine; Referring Provider Nurse Practitioner Adult Health; Visit Provider Nurse Practitioner Adult Health
DX: E89.0 Postprocedural hypothyroidism (principal)
CPT/HCPCS: 36415; 84439; 84443

== ENCOUNTER → 2021-02-05 10:57 | Outpatient (CLI) | payer MEDICARE, OTHER, SELFPAY ==
[2018-10-23 13:20] VITALS: BMI 37.4
--- NOTE | 2021-02-05 10:58 | BI_ITS ---
MAMMOGRAPHY - BILATERAL SCREENING REASON FOR EXAM: Female, 71 years old. Routine annual screening examination. PERTINENT HISTORY: Non-contributory. History of prior right stereotactic breast biopsy. TECHNIQUE: Digital bilateral breast maninder (3D mammographic acquisition) in the CC and MLO projections. 2-D mediolateral oblique (MLO) and craniocaudad (CC) views of both breasts were obtained. CAD: Full Field Digital Mammography with Computer Added Detection was performed. COMPARISON: Comparison is made with prior examination dated 09/02/2019 and 05/17/2008. FINDINGS: Breast Composition: There are scattered areas of fibroglandular density. There are no dominant masses or suspicious calcifications. A stereotactic tissue clip marker is once again seen in the upper lateral portion of the right breast. Stable small benign appearing bilateral axillary lymph nodes. No other significant abnormalities are identified. There has been no significant change since the prior study. BI/SCRN MAMM (CAD)W/MANINDER BILAT IMPRESSION: Stable bilateral screening mammogram. Yearly follow-up mammogram recommended. (A) ASSESSMENT CATEGORY: BIRADS Category 2: Benign. A letter regarding these results will be sent to the patient by the facility within 30 days. Approximately 10% of breast cancers are not detected by mammography. A normal mammogram should not delay biopsy of a clinically suspicious abnormality. [id number] Electronically Signed: Aaron Castro MD at 13:06 EDT , Service support ,
== END ==
PROVIDERS: PCP Internal Medicine; Referring Provider Internal Medicine; Visit Provider Internal Medicine
DX: Z12.31 Encounter for screening mammogram for malignant neoplasm of breast (principal)
CPT/HCPCS: 77063; 77067

== ENCOUNTER 2021-02-12 14:00 | Outpatient (RCR) | payer MEDICARE, OTHER, SELFPAY ==
[2018-10-23 13:20] VITALS: BMI 37.4
--- NOTE | 2020-12-23 13:38 | HP.PTEVAL ---
Patient's Visit Information JODI MOMIN is a 70 year old F referred to Physical Therapy by Dr. Justyna Santos MD with a diagnosis of Back pain/ DDD. Date of Evaluation: 12/23/20 Physical Therapist: OMAYRA Newby - Visit Plan Frequency: 2-3x /Week Duration: 4 Weeks Plan: 2-3X/ week for 4 weeks for AT for general mobility, core strength, Hip and LE strength, trunk ROM, endurance, stair negotiation, and HEP. If pt does not like the water or is not progressing we may go back to land PT. - Subjective Pt reports that she is having back pain and that she has been having it for a long time and it is getting worse as she is getting older. She reports that it hurts all across her LB. She reports that it hurts worse with standing but also hurts in sitting and lying down. They have not done recent x-ray or MRI. She has a little leg pain/achiness that comes and goes. She has no N&T. She has trouble up and down the stairs and she gets tired easy and her back hurts worse. No falls. She struggles with lifting anything and carrying things. - Pain Back pain Pain Intensity (Out of 10): 5 - Objective Gait: Walks with WBOS with short stride (does not pass her stance leg), decreased heel to toe pattern, decreased hip extension. She is SOB with walking back to the treatment and after going up and down stairs. LE MMT: B hip flex 4/5, Knee ext B 4+/5, B knee flex 4/5, B hip abd 4-/5, bridge 1/8 normal rom and increase pain in LB. Trunk AROM: Flexion 75%, ext to neutral, SB B25%, Tot B 50%. Patellar DTR: 1+/3 B. Gastroc length: increase B tightness. HS length: good length. Rolling over on the mat table or supine to s. Sit is a struggle. Sit to stand no issue. Standing heel and toe raise. Stairs: able to go up recip with 2 handrails and prefers to go down the stairs leading with the L leg although she can alternate but it is more difficult. - Goals Goal 1:: I HEP Goal Time Frame: 4-6 Weeks Goal 2:: Decrease back pain by 50% with standing activities Goal Time Frame: 4-6 Weeks Goal 3:: Be able to walk with more upright posture and longer strides with less pain Goal Time Frame: 4-6 Weeks Goal 4:: Up and down stairs recip with 1 handrail without hesitation. Goal Time Frame: 4-6 Weeks Goal 5:: Be able to walk back to the exam rooms without SOB Goal Time Frame: 4-6 Weeks - Rehabilitation Potential Rehabilitation Potential: Good - Anticipated Interventions Patient/Client Instruction: Educate patient on: Condition, Plan of Care For the Purpose of:: To decrease pain, To increase ROM, To improve nutrient delivery to tissue, To improve muscle performance and motor function, To improve ability to perform ADL's, To increase tolerance to activity/condition/position, To improve performance and independence with ADL's, To decrease level of supervision to perform tasks, To improve ability of physical actions for home/community/work/leisure, To improve gait and locomotor functions, To increase flexibility/ROM, To improve safety with gait Therapeutic Exercise to Include: Strength training, Endurance training, Body mechanics, Postural training, Flexibilty training, Gait and locomotor training, Neuromotor development, In an aquatic setting, Active ROM, Dynamic Lumbar Stabilization, Scapular Strength/Stabilization For the Purpose of:: To increase ROM, To improve nutrient delivery to tissue, To increase oxygenation perfusion, To improve muscle performance and motor function, To improve ability to perform ADL's, To increase tolerance to activity/condition/position, To improve performance and independence with ADL's, To decrease level of supervision to perform tasks, To improve ability of physical actions for home/community/work/leisure, To improve gait and locomotor functions, To improve health of tissue, To decrease soft tissue restriction, To increase flexibility/ROM, To improve endurance, To improve balance, To improve safety with gait Functional Training to Include: Gait training For the Purpose of:: To improve gait and locomotor functions Thank you for the opportunity to evaluate your patient. For Medicare and Medicare HMO plans, please review the plan of care and approve it. It will need to be FAXED BACK to us at [phone] for Medicare purposes. For Medicare only, by signing this I certify the plan of care. Please let me know if there are questions or concerns regarding this plan of care. Physician Signature: Date:
--- NOTE | 2021-02-12 14:30 | HP.PTDCSUM ---
It has been my pleasure to treat JODI MOMIN referred by Dr. Justyna Santos MD, with the diagnosis of Back pain/ DDD for a total of 15 visit(s). Discharge Date: 02/12/21 Please see the following information for a summary of their discharge status. Subjective: Pt reports that she has a HEP and has to remind herself to do it. Pt reports that her pain in her back and legs are tolerable. No falls. She does not have a follow up with her Dr. Back pain Pain Intensity (Out of 10): 4 RLE Pain Intensity (Out of 10): 0 LLE Pain Intensity (Out of 10): 2 % Improvement: 75 Objective/Function: Gait: walks with WBOS and decreased step length. She is SOB but states because of mask and humidity. Steps: able to go up and down the steps recip with 1 hand rail ( at times she does 2 feet to a step if she catches her heel on the step). LE MMT: B hip flex 3-/5, B knee ext 4/5, B knee flex 4/5. Goal 1:: I HEP Goal Progress: Goal Met Goal 2:: Decrease back pain by 50% with standing activities Goal Progress: Goal Met Goal 3:: Be able to walk with more upright posture and longer strides with less pain Goal Progress: Progressing Goal 4:: Up and down stairs recip with 1 handrail without hesitation. Goal Progress: Goal Met Goal 5:: Be able to walk back to the exam rooms without SOB Goal Progress: Goal Met Plan: DC PT to HEP Discharge Comments: DC PT to HEP If there are questions or concerns regarding this patient's physical therapy, please feel free to call me at [phone]. Thank you for the referral of this patient. Sincerely, Lalita Mccormick, MPT
== END 2021-02-12 14:45 | disposition home or self-care (01) ==
LOC: PT 14:00
PROVIDERS: PCP Internal Medicine; Referring Provider Internal Medicine; Visit Provider Internal Medicine
DX: M54.9 Dorsalgia, unspecified (principal); M19.90 Unspecified osteoarthritis, unspecified site
CPT/HCPCS: 97113; 97161; 97530

== ENCOUNTER → 2021-04-14 12:45 | Outpatient (CLI) | payer MEDICARE, OTHER, SELFPAY ==
[2018-10-23 13:20] VITALS: BMI 37.4
[2021-04-14 16:19] LABS: Anion Gap 8 (5-15); BUN 12 mg/dL (7-18); BUN/Creat Ratio 19.4 RATIO (10-20); Chloride 106 mmol/L (98-107); Creatinine, Serum 0.62 mg/dL (0.55-1.02); EST Glomerular Filtration Rate 102 mL/min (>60); Est Glom Filt Rate - Afr Amer 123 mL/min (>60); Glucose 99 mg/dL (74-106); Potassium 4.3 mmol/L (3.5-5.1); Sodium Level 140 mmol/L (136-145); T4 Free Direct 0.97 ng/dL (0.76-1.46); Thyroid Stim Hormone (TSH) 3.49 uIU/mL (0.358-3.74)
[2021-04-16 16:09] LABS: Thyroid Peroxidase AB 10 IU/mL (0-34)
[2021-04-16 18:31] LABS: Thyroglobulin Antibody < 1.0 IU/mL (0.0-0.9)
== END ==
PROVIDERS: PCP Internal Medicine; Referring Provider Nurse Practitioner Adult Health; Visit Provider Nurse Practitioner Adult Health
DX: C73 Malignant neoplasm of thyroid gland (principal); E83.51 Hypocalcemia
CPT/HCPCS: 36415; 80048; 82330; 84439; 84443; 86376; 86800

== ENCOUNTER → 2021-06-28 08:15 | Outpatient (CLI) | payer MEDICARE, OTHER, SELFPAY ==
[2021-06-28 11:11] LABS: T4 Free Direct 1.13 ng/dL (0.76-1.46); Thyroid Stim Hormone (TSH) 3.46 uIU/mL (0.358-3.74)
== END ==
PROVIDERS: PCP Internal Medicine; Referring Provider Nurse Practitioner Adult Health; Visit Provider Nurse Practitioner Adult Health
DX: E89.0 Postprocedural hypothyroidism (principal); C73 Malignant neoplasm of thyroid gland
CPT/HCPCS: 36415; 84439; 84443

== ENCOUNTER → 2021-07-22 15:31 | Outpatient (CLI) | payer MEDICARE, OTHER, SELFPAY | PROVIDERS: PCP Internal Medicine; Referring Provider Otolaryngology Otolaryngology/Facial Plastic Surgery; Visit Provider Otolaryngology Otolaryngology/Facial Plastic Surgery | DX: J02.9 Acute pharyngitis, unspecified (principal) | CPT/HCPCS: 87070 ==

== ENCOUNTER 2021-10-03 10:48 | Emergency (ER) | payer OTHER, MEDICARE, SELFPAY ==
[2021-10-03] VITALS (7 sets, daily range): BP systolic 66–108; BP diastolic 40–76; PULSE 58–87; RESP 16–20; TEMP 36.4–36.6; O2SAT 93–96; BMI 42.6
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
--- NOTE | 2021-10-03 11:20 | EKG12_ITS ---
Test Reason : SHELIA Blood Pressure : / mmHG Vent. Rate : 063 BPM Atrial Rate : 068 BPM P-R Int : 000 ms QRS Dur : 088 ms QT Int : 448 ms P-R-T Axes : 000 040 002 degrees QTc Int : 458 ms Atrial fibrillation Nonspecific T wave abnormality Abnormal ECG Confirmed by JONNY CHANDRA, ANA ([id number]), art editor ALYSSA MALDONADO ([id number]) on 10/05/2021 9:44:44 AM Referred By: CYNDY Confirmed By:ANA FULLER MD
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
[2021-10-03] MEDS: 0.9% Normal Saline 1,000 ML 150 ML IV (11:33)
[2021-10-03 11:59] LABS: Absolute Lymphocyte Count 1.09 X10^3/uL (0.83-4.51); Absolute Neutrophil Count 9.2 X10^3/uL (2.0-7.7); Basophil# 0.04 X10^3/uL; Basophil% 0.4 % (0-1); Eosinophil# 0.05 X10^3/uL; Eosinophils% 0.4 % (0-5); Hematocrit 41.8 % (37-47); Hemoglobin 13.2 g/dL (12.0-15.0); Lymphocyte # 1.09 X10^3/ul (0.83-4.51); Lymphocyte % 9.7 % (19-41); Mean Corp Hgb Conc 31.6 g/dL (32-36); Mean Corpuscular Hgb 29.7 pg (27.0-32.0); Mean Corpuscular Volume 94.1 fL (81-99); Mean Platelet Vol. 10.2 fl (6.2-12.0); Monocyte# 0.65 X10^3/uL; Monocyte% 5.8 % (0-10); NRBC Flagged by Analyzer 0 % (0-5); Neutrophil # 9.24 X10^3/uL (2.7-7.7); Neutrophil % 82.7 % (47-70); Platelet Count 266 K/mm3 (150-450); RBC Distribution Width CV 13.2 % (11.6-14.6); RBC Distribution Width SD 45.3 fl (35.1-43.9); Red Blood Count 4.44 M/mm3 (4.2-5.4); White Blood Count 11.2 K/mm3 (4.4-11.0)
[2021-10-03] MEDS: fentaNYL 100 MCG/2 ML Ampul 50 MCG IV ×2 (12:06→14:00)
[2021-10-03 12:16] LABS: ALB/GLOB Ratio 0.9 RATIO (0.9-2.4); AST(SGOT) 129 U/L (15-37); Alanine Aminotransfer ALT/SGPT 85 U/L (13-56); Albumin, Serum 3.1 g/dL (3.2-5.0); Alkaline Phosphatase 61 U/L (45-117); Anion Gap 8 (5-15); BUN 15 mg/dL (7-18); BUN/Creat Ratio 19.5 RATIO (10-20); Calcium,Total 8.6 mg/dL (8.5-10.1); Chloride 106 mmol/L (98-107); Creatinine, Serum 0.77 mg/dL (0.55-1.02); EST Glomerular Filtration Rate 79 mL/min (>60); Est Glom Filt Rate - Afr Amer 95 mL/min (>60); Estimated Creatinine Clearance 73.88 ml/min; Globulin 3.4 g/dL (2.2-4.2); Glucose 145 mg/dL (74-106); Potassium 3.9 mmol/L (3.5-5.1); Protein, Total 6.5 g/dL (6.4-8.2); Sodium Level 137 mmol/L (136-145); Troponin-I HS 66 pg/mL (3.0-54.0)
--- NOTE | 2021-10-03 13:31 | NURSING ---
CALLED ASIM BROWN
== END 2021-10-03 14:55 | disposition other institution (70) ==
PROVIDERS: Emergency Provider Emergency Medicine; PCP Internal Medicine; Visit Provider Emergency Medicine
DX: S42.401A Unspecified fracture of lower end of right humerus, initial encounter for closed fracture (principal); I48.91 Unspecified atrial fibrillation; S20.20XA Contusion of thorax, unspecified, initial encounter; I95.9 Hypotension, unspecified; Z87.891 Personal history of nicotine dependence; V89.2XXA Person injured in unspecified motor-vehicle accident, traffic, initial encounter; Z86.73 Personal history of transient ischemic attack (TIA), and cerebral infarction without residual deficits; Z79.01 Long term (current) use of anticoagulants; Z79.899 Other long term (current) drug therapy
CPT/HCPCS: 70450; 71260; 72125; 73080; 74177; 80053; 84484; 85025; 93005; 96374; 96376; 99285; J7030; Q9967; A4216

== ENCOUNTER → 2021-10-16 | Outpatient (REF) | payer SELFPAY ==
[2021-10-16 08:02] LABS: Hematocrit 33.1 % (37-47); Hemoglobin 11.3 g/dL (12.0-15.0); Mean Corp Hgb Conc 34.1 g/dL (32-36); Mean Corpuscular Hgb 30.9 pg (27.0-32.0); Mean Corpuscular Volume 90.4 fL (81-99); Mean Platelet Vol. 9.6 fl (6.2-12.0); Platelet Count 494 K/mm3 (150-450); RBC Distribution Width CV 13.7 % (11.6-14.6); RBC Distribution Width SD 44.1 fl (35.1-43.9); Red Blood Count 3.66 M/mm3 (4.2-5.4); White Blood Count 10.6 K/mm3 (4.4-11.0)
[2021-10-16 08:32] LABS: ALB/GLOB Ratio 0.7 RATIO (0.9-2.4); AST(SGOT) 29 U/L (15-37); Alanine Aminotransfer ALT/SGPT 37 U/L (13-56); Albumin, Serum 2.8 g/dL (3.2-5.0); Alkaline Phosphatase 156 U/L (45-117); Anion Gap 8 (5-15); BUN 12 mg/dL (7-18); BUN/Creat Ratio 36.1 RATIO (10-20); Calcium,Total 8.6 mg/dL (8.5-10.1); Chloride 91 mmol/L (98-107); Creatinine, Serum 0.33 mg/dL (0.55-1.02); EST Glomerular Filtration Rate 208 mL/min (>60); Est Glom Filt Rate - Afr Amer 251 mL/min (>60); Globulin 3.9 g/dL (2.2-4.2); Glucose 122 mg/dL (74-106); Potassium 3.3 mmol/L (3.5-5.1); Protein, Total 6.7 g/dL (6.4-8.2); Sodium Level 130 mmol/L (136-145); Thyroid Stim Hormone (TSH) 0.21 uIU/mL (0.358-3.74)
[2021-10-16 08:36] LABS: Hemoglobin A1c 5.5 % (3.8-5.6)
[2021-10-17 09:14] LABS: MG Sendout 2.2 mg/dL (1.6-2.3)
[2021-10-18 09:12] LABS: Vitamin B12 561 pg/mL (211-911)
== END | disposition home or self-care (01) ==
LOC: OLS.SW500 05:00
PROVIDERS: PCP Internal Medicine; Visit Provider Internal Medicine
DX: Z94.0 Kidney transplant status (principal); M86.9 Osteomyelitis, unspecified; Z79.899 Other long term (current) drug therapy
CPT/HCPCS: 36415; 80053; 82607; 83036; 83735; 84443; 85027

== ENCOUNTER → 2021-10-19 | Outpatient (REF) | payer SELFPAY ==
[2021-10-19 08:35] LABS: Absolute Lymphocyte Count 0.85 X10^3/uL (0.83-4.51); Absolute Neutrophil Count 6.3 X10^3/uL (2.0-7.7); Basophil# 0.01 X10^3/uL; Basophil% 0.1 % (0-1); Eosinophil# 0.04 X10^3/uL; Eosinophils% 0.5 % (0-5); Hematocrit 38.5 % (37-47); Hemoglobin 12.5 g/dL (12.0-15.0); Lymphocyte # 0.85 X10^3/ul (0.83-4.51); Lymphocyte % 10.7 % (19-41); Mean Corp Hgb Conc 32.5 g/dL (32-36); Mean Corpuscular Hgb 29.3 pg (27.0-32.0); Mean Corpuscular Volume 90.4 fL (81-99); Mean Platelet Vol. 9.4 fl (6.2-12.0); Monocyte# 0.65 X10^3/uL; Monocyte% 8.2 % (0-10); NRBC Flagged by Analyzer 0 % (0-5); Neutrophil # 6.34 X10^3/uL (2.7-7.7); Neutrophil % 80.1 % (47-70); Platelet Count 511 K/mm3 (150-450); RBC Distribution Width CV 14.3 % (11.6-14.6); RBC Distribution Width SD 45.6 fl (35.1-43.9); Red Blood Count 4.26 M/mm3 (4.2-5.4); White Blood Count 7.9 K/mm3 (4.4-11.0)
[2021-10-19 08:50] LABS: Vitamin D,25 Hydroxy 34.3 ng/mL
[2021-10-19 09:13] LABS: Anion Gap 8 (5-15); BUN 16 mg/dL (7-18); BUN/Creat Ratio 30.5 RATIO (10-20); Calcium,Total 8.7 mg/dL (8.5-10.1); Chloride 93 mmol/L (98-107); Creatinine, Serum 0.52 mg/dL (0.55-1.02); EST Glomerular Filtration Rate 122 mL/min (>60); Est Glom Filt Rate - Afr Amer 148 mL/min (>60); Glucose 119 mg/dL (74-106); Potassium 2.8 mmol/L (3.5-5.1); Sodium Level 136 mmol/L (136-145)
== END | disposition home or self-care (01) ==
LOC: OLS.SW500 05:00
PROVIDERS: PCP Internal Medicine; Visit Provider Internal Medicine
DX: I48.91 Unspecified atrial fibrillation (principal); E03.9 Hypothyroidism, unspecified
CPT/HCPCS: 36415; 80048; 82306; 85025

== ENCOUNTER → 2021-10-26 | Outpatient (REF) | payer SELFPAY ==
[2021-10-26 09:30] LABS: Anion Gap 10 (5-15); BUN 19 mg/dL (7-18); BUN/Creat Ratio 36.6 RATIO (10-20); Calcium,Total 8.6 mg/dL (8.5-10.1); Chloride 97 mmol/L (98-107); Creatinine, Serum 0.52 mg/dL (0.55-1.02); EST Glomerular Filtration Rate 124 mL/min (>60); Est Glom Filt Rate - Afr Amer 150 mL/min (>60); Glucose 99 mg/dL (74-106); Potassium 4.1 mmol/L (3.5-5.1); Sodium Level 135 mmol/L (136-145)
== END | disposition home or self-care (01) ==
LOC: OLS.SW500 05:00
PROVIDERS: PCP Internal Medicine; Visit Provider Internal Medicine
DX: I48.91 Unspecified atrial fibrillation (principal)
CPT/HCPCS: 36415; 80048

== ENCOUNTER → 2021-10-27 | Outpatient (REF) | payer SELFPAY ==
[2021-10-27 08:39] LABS: Absolute Lymphocyte Count 1.29 X10^3/uL (0.83-4.51); Absolute Neutrophil Count 4.2 X10^3/uL (2.0-7.7); Basophil# 0.03 X10^3/uL; Basophil% 0.5 % (0-1); Eosinophil# 0.19 X10^3/uL; Hematocrit 38.5 % (37-47); Hemoglobin 12.9 g/dL (12.0-15.0); Lymphocyte # 1.29 X10^3/ul (0.83-4.51); Mean Corp Hgb Conc 33.5 g/dL (32-36); Mean Corpuscular Hgb 30.6 pg (27.0-32.0); Mean Corpuscular Volume 91.4 fL (81-99); Mean Platelet Vol. 10.2 fl (6.2-12.0); Monocyte# 0.74 X10^3/uL; Monocyte% 11.5 % (0-10); NRBC Flagged by Analyzer 0 % (0-5); Neutrophil # 4.17 X10^3/uL (2.7-7.7); Neutrophil % 64.7 % (47-70); Platelet Count 338 K/mm3 (150-450); RBC Distribution Width CV 14.3 % (11.6-14.6); RBC Distribution Width SD 47.6 fl (35.1-43.9); Red Blood Count 4.21 M/mm3 (4.2-5.4); White Blood Count 6.4 K/mm3 (4.4-11.0)
[2021-10-27 08:42] LABS: Magnesium 2.3 mg/dL (1.6-2.6)
== END | disposition home or self-care (01) ==
LOC: OLS.SW500 05:00
PROVIDERS: PCP Internal Medicine; Visit Provider Family Medicine
DX: I10 Essential (primary) hypertension (principal); F03.90 Unspecified dementia, unspecified severity, without behavioral disturbance, psychotic disturbance, mood disturbance, and anxiety; I48.91 Unspecified atrial fibrillation; E03.9 Hypothyroidism, unspecified
CPT/HCPCS: 83735; 85025

== ENCOUNTER → 2021-11-01 | Outpatient (REF) | payer SELFPAY ==
[2021-11-01 08:41] LABS: Anion Gap 5 (5-15); BUN 14 mg/dL (7-18); BUN/Creat Ratio 24.6 RATIO (10-20); Chloride 103 mmol/L (98-107); Creatinine, Serum 0.57 mg/dL (0.55-1.02); EST Glomerular Filtration Rate 111 mL/min (>60); Est Glom Filt Rate - Afr Amer 135 mL/min (>60); Glucose 102 mg/dL (74-106); Potassium 4.1 mmol/L (3.5-5.1); Sodium Level 137 mmol/L (136-145)
== END | disposition home or self-care (01) ==
LOC: OLS.SW500 04:00
PROVIDERS: PCP Internal Medicine; Visit Provider Internal Medicine
DX: I48.91 Unspecified atrial fibrillation (principal); S52.514D Nondisplaced fracture of right radial styloid process, subsequent encounter for closed fracture with routine healing
CPT/HCPCS: 36415; 80048

== ENCOUNTER → 2021-11-02 | Outpatient (REF) | payer SELFPAY ==
[2021-11-02 07:48] LABS: Absolute Lymphocyte Count 1.51 X10^3/uL (0.83-4.51); Absolute Neutrophil Count 2.9 X10^3/uL (2.0-7.7); Basophil# 0.04 X10^3/uL; Basophil% 0.8 % (0-1); Eosinophil# 0.13 X10^3/uL; Eosinophils% 2.6 % (0-5); Hematocrit 39.3 % (37-47); Hemoglobin 12.9 g/dL (12.0-15.0); Lymphocyte # 1.51 X10^3/ul (0.83-4.51); Mean Corp Hgb Conc 32.8 g/dL (32-36); Mean Corpuscular Hgb 29.2 pg (27.0-32.0); Mean Corpuscular Volume 88.9 fL (81-99); Mean Platelet Vol. 10.3 fl (6.2-12.0); Monocyte# 0.46 X10^3/uL; Monocyte% 9.1 % (0-10); NRBC Flagged by Analyzer 0 % (0-5); Neutrophil # 2.89 X10^3/uL (2.7-7.7); Neutrophil % 57.3 % (47-70); Platelet Count 292 K/mm3 (150-450); RBC Distribution Width CV 14.1 % (11.6-14.6); RBC Distribution Width SD 45.7 fl (35.1-43.9); Red Blood Count 4.42 M/mm3 (4.2-5.4)
[2021-11-02 08:14] LABS: Anion Gap 12 (5-15); BUN 16 mg/dL (7-18); BUN/Creat Ratio 25.5 RATIO (10-20); Calcium,Total 9.1 mg/dL (8.5-10.1); Chloride 102 mmol/L (98-107); Creatinine, Serum 0.63 mg/dL (0.55-1.02); EST Glomerular Filtration Rate 99 mL/min (>60); Est Glom Filt Rate - Afr Amer 120 mL/min (>60); Glucose 109 mg/dL (74-106); Potassium 4.4 mmol/L (3.5-5.1); Sodium Level 140 mmol/L (136-145)
[2021-11-03 07:36] LABS: Magnesium 2.2 mg/dL (1.6-2.6)
== END | disposition home or self-care (01) ==
LOC: OLS.SW500 05:00
PROVIDERS: PCP Internal Medicine; Visit Provider Internal Medicine
DX: I48.91 Unspecified atrial fibrillation (principal)
CPT/HCPCS: 36415; 80048; 83735; 85025

== ENCOUNTER 2021-11-10 04:00 | Outpatient (REF) | payer SELFPAY ==
[2021-11-10 09:39] LABS: Anion Gap 5 (5-15); BUN 13 mg/dL (7-18); BUN/Creat Ratio 21.7 RATIO (10-20); Calcium,Total 9.3 mg/dL (8.5-10.1); Chloride 102 mmol/L (98-107); EST Glomerular Filtration Rate 105 mL/min (>60); Est Glom Filt Rate - Afr Amer 127 mL/min (>60); Glucose 108 mg/dL (74-106); Potassium 3.6 mmol/L (3.5-5.1); Sodium Level 139 mmol/L (136-145)
== END 2021-11-10 23:59 | disposition home or self-care (01) ==
LOC: OLS.SW500 04:00
PROVIDERS: PCP Internal Medicine; Referring Provider Internal Medicine; Visit Provider Internal Medicine
DX: I10 Essential (primary) hypertension (principal)
CPT/HCPCS: 36415; 80048; 83735

== ENCOUNTER → 2021-11-17 | Outpatient (REF) | payer SELFPAY ==
[2021-11-17 08:37] LABS: Anion Gap 5 (5-15); BUN 14 mg/dL (7-18); BUN/Creat Ratio 23.6 RATIO (10-20); Calcium,Total 9.4 mg/dL (8.5-10.1); Chloride 102 mmol/L (98-107); Creatinine, Serum 0.59 mg/dL (0.55-1.02); EST Glomerular Filtration Rate 106 mL/min (>60); Est Glom Filt Rate - Afr Amer 128 mL/min (>60); Glucose 98 mg/dL (74-106); Magnesium 1.9 mg/dL (1.6-2.6); Sodium Level 137 mmol/L (136-145)
== END | disposition home or self-care (01) ==
LOC: OLS.SW500 04:00
PROVIDERS: PCP Internal Medicine; Referring Provider Internal Medicine; Visit Provider Internal Medicine
DX: T14.8XXD Other injury of unspecified body region, subsequent encounter (principal)
CPT/HCPCS: 36415; 80048; 83735

== ENCOUNTER 2021-11-24 04:00 | Outpatient (REF) | payer OTHER, MEDICARE, SELFPAY ==
[2021-11-24 09:44] LABS: Anion Gap 5 (5-15); BUN 13 mg/dL (7-18); BUN/Creat Ratio 21.6 RATIO (10-20); Chloride 103 mmol/L (98-107); EST Glomerular Filtration Rate 104 mL/min (>60); Est Glom Filt Rate - Afr Amer 126 mL/min (>60); Glucose 96 mg/dL (74-106); Magnesium 2.3 mg/dL (1.6-2.6); Sodium Level 138 mmol/L (136-145)
== END 2021-11-24 23:59 | disposition home or self-care (01) ==
LOC: OLS.SW500 04:00
PROVIDERS: PCP Internal Medicine; Referring Provider Internal Medicine; Visit Provider Internal Medicine
DX: I48.91 Unspecified atrial fibrillation (principal); F03.90 Unspecified dementia, unspecified severity, without behavioral disturbance, psychotic disturbance, mood disturbance, and anxiety; I10 Essential (primary) hypertension; E03.9 Hypothyroidism, unspecified
CPT/HCPCS: 36415; 80048; 83735

== ENCOUNTER → 2021-12-01 | Outpatient (REF) | payer SELFPAY ==
[2021-12-01 09:07] LABS: Anion Gap 6 (5-15); BUN 13 mg/dL (7-18); Calcium,Total 9.2 mg/dL (8.5-10.1); Chloride 105 mmol/L (98-107); Creatinine, Serum 0.56 mg/dL (0.55-1.02); EST Glomerular Filtration Rate 112 mL/min (>60); Est Glom Filt Rate - Afr Amer 136 mL/min (>60); Glucose 94 mg/dL (74-106); Potassium 4.5 mmol/L (3.5-5.1); Sodium Level 136 mmol/L (136-145)
== END | disposition home or self-care (01) ==
LOC: OLS.SW500 05:00
PROVIDERS: PCP Internal Medicine; Visit Provider Internal Medicine
DX: T14.8XXD Other injury of unspecified body region, subsequent encounter (principal)
CPT/HCPCS: 36415; 80048; 83735

== ENCOUNTER → 2021-12-08 | Outpatient (REF) | payer SELFPAY ==
[2021-12-08 08:09] LABS: Anion Gap 6 (5-15); BUN 13 mg/dL (7-18); BUN/Creat Ratio 22.3 RATIO (10-20); Calcium,Total 8.7 mg/dL (8.5-10.1); Chloride 101 mmol/L (98-107); Creatinine, Serum 0.58 mg/dL (0.55-1.02); EST Glomerular Filtration Rate 108 mL/min (>60); Est Glom Filt Rate - Afr Amer 131 mL/min (>60); Glucose 106 mg/dL (74-106); Magnesium 1.9 mg/dL (1.6-2.6); Potassium 4.1 mmol/L (3.5-5.1); Sodium Level 136 mmol/L (136-145)
== END | disposition home or self-care (01) ==
LOC: OLS.SW500 05:00
PROVIDERS: PCP Internal Medicine; Visit Provider Internal Medicine
DX: S52.514D Nondisplaced fracture of right radial styloid process, subsequent encounter for closed fracture with routine healing (principal)
CPT/HCPCS: 36415; 80048; 83735

== ENCOUNTER → 2021-12-15 | Outpatient (REF) | payer SELFPAY ==
[2021-12-15 08:49] LABS: Anion Gap 5 (5-15); BUN 12 mg/dL (7-18); BUN/Creat Ratio 20.3 RATIO (10-20); Calcium,Total 8.5 mg/dL (8.5-10.1); Chloride 100 mmol/L (98-107); Creatinine, Serum 0.59 mg/dL (0.55-1.02); EST Glomerular Filtration Rate 107 mL/min (>60); Est Glom Filt Rate - Afr Amer 129 mL/min (>60); Glucose 95 mg/dL (74-106); Magnesium 2.1 mg/dL (1.6-2.6); Potassium 3.5 mmol/L (3.5-5.1); Sodium Level 137 mmol/L (136-145)
== END | disposition home or self-care (01) ==
LOC: OLS.SW500 04:00
PROVIDERS: PCP Internal Medicine; Referring Provider Internal Medicine; Visit Provider Internal Medicine
DX: M62.81 Muscle weakness (generalized) (principal)
CPT/HCPCS: 36415; 80048; 83735

== ENCOUNTER → 2021-12-22 | Outpatient (REF) | payer SELFPAY ==
[2021-12-22 08:35] LABS: Anion Gap 4 (5-15); BUN 14 mg/dL (7-18); BUN/Creat Ratio 26.1 RATIO (10-20); Calcium,Total 9.3 mg/dL (8.5-10.1); Chloride 101 mmol/L (98-107); Creatinine, Serum 0.54 mg/dL (0.55-1.02); EST Glomerular Filtration Rate 119 mL/min (>60); Est Glom Filt Rate - Afr Amer 144 mL/min (>60); Glucose 97 mg/dL (74-106); Magnesium 1.9 mg/dL (1.6-2.6); Potassium 3.9 mmol/L (3.5-5.1); Sodium Level 136 mmol/L (136-145)
== END | disposition home or self-care (01) ==
LOC: OLS.SW500 04:00
PROVIDERS: PCP Internal Medicine; Referring Provider Internal Medicine; Visit Provider Internal Medicine
DX: M62.81 Muscle weakness (generalized) (principal)
CPT/HCPCS: 36415; 80048; 83735

== ENCOUNTER → 2021-12-29 | Outpatient (REF) | payer SELFPAY ==
[2021-12-29 08:58] LABS: Anion Gap 9 (5-15); BUN 12 mg/dL (7-18); BUN/Creat Ratio 20.1 RATIO (10-20); Calcium,Total 8.9 mg/dL (8.5-10.1); Chloride 103 mmol/L (98-107); EST Glomerular Filtration Rate 105 mL/min (>60); Est Glom Filt Rate - Afr Amer 127 mL/min (>60); Glucose 105 mg/dL (74-106); Magnesium 2.1 mg/dL (1.6-2.6); Sodium Level 139 mmol/L (136-145)
== END | disposition home or self-care (01) ==
LOC: OLS.SW500 05:00
PROVIDERS: PCP Internal Medicine; Visit Provider Internal Medicine
DX: M62.81 Muscle weakness (generalized) (principal)
CPT/HCPCS: 36415; 80048; 83735

== ENCOUNTER → 2022-03-03 | Outpatient (CLI) | payer MEDICARE, OTHER, SELFPAY ==
--- NOTE | 2022-03-03 07:31 | ECHOD_ITS ---
Reason For Study: CAD/ASHD Procedure This was a 2D Doppler, Color Flow transthoracic echocardiogram. The exam was of adequate technical quality. Exam performed in department. Left Ventricle Normal LV size. Left ventricular systolic function is lower limits of normal. The estimated ejection fraction is 50 %. Unable to assess diastolic dysfunction. No regional wall motion abnormalities noted. Right Ventricle Normal RV size. Normal systolic function. Atria The left atrium is mildly enlarged. Normal right atrium. 2D echocardiographic findings potentially compatible with ASD repair. No doppler evidence for ASD. Mitral Valve There is mild mitral annular calcification. Normal mitral valve. Mild (1+) mitral valve insufficiency. Tricuspid Valve Normal tricuspid valve. Mild to moderate (1-2+) eccentric tricuspid valve insufficiency. Right ventricular systolic pressure estimated to be 37 mmHg. Aortic Valve Trisinus/trileaflet aortic valve. Mild focal aortic valve thickening. Pulmonic Valve The pulmonic valve is not well visualized. Mild (1+) pulmonic valve insufficiency. Great Vessels Normal sized aortic root. Pericardium/Pleural No pericardial effusion. MMode/2D Measurements & Calculations LVIDd: 5.3 cm IVSd: 0.79 cm Ao root diam: 2.9 cm LVIDs: 3.8 cm LVPWd: 0.96 cm RVDd: 3.8 cm FS: 28.8 % LAV(MOD-bp): 78.4 ml LVAd ap4: 24.9 cm2 SV(MOD-sp4): 41.3 ml LAV(MOD-bp) Indexed: 45.5 ml/m2 LVLd ap4: 6.9 cm LAV(MOD-sp2): 75.5 ml EDV(MOD-sp4): 76.5 ml LAV(MOD-sp4): 73.8 ml EDV(sp4-el): 76.1 ml LVAs ap4: 15.6 cm2 LVLs ap4: 5.9 cm ESV(MOD-sp4): 35.2 ml ESV(sp4-el): 35.1 ml EF(MOD-sp4): 53.9 % EF(sp4-el): 53.9 % SV(sp4-el): 41.0 ml LA A4 area: 24.5 cm2 LA dimension(2D): 4.4 cm RA A4 area: 23.3 cm2 Doppler Measurements & Calculations MV E max luis: 99.9 cm/sec Ao V2 max: 125.0 cm/sec LV V1 max: 93.1 cm/sec Ao max P.3 mmHg LV V1 max P.5 mmHg PA V2 max: 88.0 cm/sec TR max luis: 289.4 cm/sec TR max P.5 mmHg ECHO/Echo Complete Interpretation Summary Left ventricular systolic function is lower limits of normal. The estimated ejection fraction is 50 %. The left atrium is mildly enlarged. There is mild mitral annular calcification. Mild (1+) mitral valve insufficiency. Mild to moderate (1-2+) eccentric tricuspid valve insufficiency. Mild focal aortic valve thickening. Mild (1+) pulmonic valve insufficiency. Right ventricular systolic pressure estimated to be 37 mmHg. Unable to assess diastolic dysfunction. 2D echocardiographic findings potentially compatible with ASD repair No doppler evidence for ASD. Ordering Physician: Justyna Santos Referring Physician: Justyna Santos Performed By: Viola Mcneal RDCS
== END | disposition home or self-care (01) ==
PROVIDERS: PCP Internal Medicine; Referring Provider Internal Medicine; Visit Provider Internal Medicine
DX: I25.10 Atherosclerotic heart disease of native coronary artery without angina pectoris (principal)
CPT/HCPCS: 93306

== ENCOUNTER → 2022-03-15 | Outpatient (CLI) | payer MEDICARE, OTHER, SELFPAY ==
--- NOTE | 2022-03-15 13:44 | STRESSREP ---
Stress Test Report Date: 03-15-2022 Procedure: Pharmacologic stress nuclear imaging study Indications: Atrial fibrillation; status post ablation; atrial septal defect status postrepair-remote; CAD Consent: Per the patient Procedure: The patient underwent pharmacologic (Regadenoson 0.4mg ) evaluation with a peak heart rate of 116 beats per minute (77%predicted maximal heart rate) and a peak blood pressure of 124/70 mmHg. The baseline ECG demonstrated atrial fibrillation; nonspecific ST/T wave abnormality. The peak pharmacologic ECG demonstrated no obvious ECG changes. There were no cardiac dysrhythmias pretest, during pharmacologic infusion, or recovery. There was no complaint of chest discomfort during pharmacologic infusion or recovery. The examination was discontinued secondary to completion of protocol. Impression: 1. Pharmacologic (Regadenoson) evaluation 2. Peak pharmacologic ECG with no obvious ECG changes. 3. There were no cardiac dysrhythmias pretest, during pharmacologic infusion, or recovery. 4. Nuclear images pending Myocardial perfusion imaging study: Technique: The patient was injected with 14.2 millicuries of technetium 99m Cardiolite and subsequently rest SPECT Cardiolite nuclear imaging was obtained in the horizontal long, vertical long, and short axis views. The patient underwent pharmacologic (Regadenoson) evaluation with a peak heart rate of 116 beats per minute (77% percent predicted maximal heart rate) and a peak blood pressure of 124/70 mmHg. The patient was injected with 44.5 millicuries of technetium 99m Cardiolite and subsequently stress SPECT Cardiolite nuclear imaging was obtained in the horizontal long, vertical long, and short axis views. A gated Cardiolite study at peak stress was obtained. Interpretation: Rest and stress SPECT Cardiolite nuclear imaging status post realignment, normalization, and attenuation correction demonstrate relative uniform tracer uptake and myocardial perfusion appearing within normal limits. There is end systolic thickening and brightening. The gated Cardiolite study demonstrates myocardial thickening and inward wall motion. The reported LVEF is 66%. Impression: 1. Rest and stress SPECT Cardiolite nuclear imaging demonstrate relative uniform tracer uptake and myocardial perfusion appearing within normal limits. 2. The gated Cardiolite study reports an LVEF of 66%. This note was generated with Gr[employer] software. It may contain incorrect words, spelling, and punctuation that were not noted in checking the note before signing.
== END | disposition home or self-care (01) ==
LOC: CVS 07:31
PROVIDERS: PCP Internal Medicine; Referring Provider Internal Medicine; Visit Provider Internal Medicine
DX: I25.10 Atherosclerotic heart disease of native coronary artery without angina pectoris (principal)
CPT/HCPCS: 78452; 93017; A9500; A4216; J2785

== ENCOUNTER → 2023-08-09 | Outpatient (CLI) | payer MEDICARE, OTHER, SELFPAY ==
--- NOTE | 2023-08-09 07:18 | ECHOD_ITS ---
Reason For Study: Abn EKG Procedure This was a 2D Doppler, Color Flow transthoracic echocardiogram. Exam performed in department. Left Ventricle Normal LV size. Left ventricular systolic function is lower limits of normal. The estimated ejection fraction is 50 %. No regional wall motion abnormalities noted. Right Ventricle Normal RV size. Normal systolic function. Atria Normal left atrium. Normal right atrium. Mitral Valve Bileaflet diffuse mitral valve thickening. Mild-Moderate (1-2+) eccentric mitral valve insufficiency. Tricuspid Valve Normal tricuspid valve. Mild (1+) tricuspid valve insufficiency. Pulmonary artery systolic pressure is 28 mmHg. Pulmonic Valve Normal pulmonic valve. Mild (1+) pulmonic valve insufficiency. Pericardium/Pleural No pericardial effusion. MMode/2D Measurements & Calculations LVIDd: 4.6 cm IVSd: 0.81 cm Ao root diam: 3.2 cm LVIDs: 3.2 cm LVPWd: 0.87 cm RVDd: 3.6 cm FS: 30.5 % LAV(MOD-bp): 53.9 ml SV(MOD-sp4): 24.1 ml LVAd ap4: 18.5 cm2 LAV(MOD-bp) Indexed: 33.1 ml/m2 LVLd ap4: 5.8 cm LAV(MOD-sp2): 50.6 ml EDV(MOD-sp4): 49.7 ml LAV(MOD-sp4): 49.2 ml EDV(sp4-el): 50.1 ml LVAs ap4: 12.4 cm2 LVLs ap4: 5.2 cm ESV(MOD-sp4): 25.6 ml ESV(sp4-el): 25.3 ml EF(MOD-sp4): 48.4 % EF(sp4-el): 49.4 % SV(sp4-el): 24.8 ml LA dimension(2D): 4.4 cm LA A4 area: 19.9 cm2 TAPSE: 1.7 cm RA A4 area: 17.6 cm2 Doppler Measurements & Calculations MV E max félix: 67.4 cm/sec Lat Peak E' Félix: 14.0 cm/sec Med Peak E' Félix: 10.1 cm/sec E/E' lat: 4.8 E/E' med: 6.7 Ao V2 max: 115.9 cm/sec LV V1 max: 100.0 cm/sec PA V2 max: 83.7 cm/sec Ao max P.4 mmHg LV V1 max P.0 mmHg Ao V2 mean: 79.4 cm/sec LV V1 mean P.0 mmHg Ao mean P.9 mmHg LV V1 mean: 65.7 cm/sec Ao V2 VTI: 21.3 cm LV V1 VTI: 17.2 cm AV (velocity ratio): 0.81 PI end-d félix: 127.5 cm/sec TR max félix: 247.2 cm/sec TR max P.4 mmHg ECHO/Echo Complete Interpretation Summary Normal LV size. Left ventricular systolic function is lower limits of normal. Pulmonary artery systolic pressure is 28 mmHg. Mild-Moderate (1-2+) eccentric mitral valve insufficiency. The estimated ejection fraction is 50 %. Ordering Physician: Justyna Santos Referring Physician: Justyna Santos Performed By: Elzbieta Mendoza, RDCS, RVT
--- NOTE | 2023-08-09 16:38 | STRESSREP ---
Stress Test Report Pharmacologic myocardial perfusion stress test. 73-year-old lady with a history of chest pain Resting EKG demonstrates sinus rhythm with a rate of 83 bpm. Resting blood pressure is 100/60 mmHg. 0.4 mg of regadenoson was infused per usual protocol followed by rapid intravenous saline flush injection. Continuous EKG monitoring was performed. The maximum heart rate was 97 bpm which was 65% of max impacted heart rate the maximum workload was 1 metabolic equivalent. At rest there were no ST or T wave changes noted to suggest ischemia and at peak infusion nonspecific ST changes were noted which did not meet the criteria for ischemia. No clinical angina is noted. The final blood pressure was 102/62 mmHg. Myocardial perfusion protocol. 11.1 mCi of technetium 99m sestamibi was injected at rest. 0.4 mg of regadenoson was infused per usual protocol. At peak infusion 33 mCi of technetium 99m sestamibi was injected stress images were obtained stress and rest images were reconstructed and compared in the short axis vertical long and horizontal long axis. Gated images were also obtained. Perfusion SPECT analysis: Review of the stress images demonstrate normal uptake of tracer noted in all areas of the myocardium. The resting images similar demonstrated normal uptake of tracer noted in all areas of the myocardium. No areas of reversibility are noted to suggest ischemia and no previous infarct is noted. Gated SPECT analysis: The gated ejection fraction is 73%. Conclusion: Normal pharmacologic myocardial perfusion stress test. Preserved ejection fraction.
== END | disposition home or self-care (01) ==
LOC: CVS 07:16
PROVIDERS: PCP Internal Medicine; Referring Provider Internal Medicine; Visit Provider Internal Medicine
DX: R94.31 Abnormal electrocardiogram [ECG] [EKG] (principal); I42.8 Other cardiomyopathies
CPT/HCPCS: 78452; 93017; 93306; A9500; A4216; J2785

== ENCOUNTER → 2023-08-24 | Outpatient (CLI) | payer MEDICARE, OTHER, SELFPAY ==
--- NOTE | 2023-08-24 15:34 | US_ITS ---
STUDY: ABDOMINAL ULTRASOUND - RIGHT UPPER QUADRANT REASON FOR VISIT: Female, 73 years old Elevated Liver Enzymes TECHNIQUE: Ultrasound evaluation of the right upper quadrant was performed with real-time and static boyer-scale imaging. TECHNICAL QUALITY: Adequate. COMPARISON: None. FINDINGS: Liver: The liver measures 14.1 cm. There is increased echogenicity consistent with fatty infiltration. Focal fatty sparing adjacent to the gallbladder. The bile ducts are within normal limits. There is hepatic color flow. The direction of portal flow is hepatopetal. 1.6 cm round hypoechoic mass in the left lobe of the liver. Another 1.6 cm hypoechoic mass in the left lobe of the liver. 1.2 cm hypoechoic mass the right lobe of the liver. Correlation with liver mass protocol CT is recommended. Gallbladder: Normal distended gallbladder. The gallbladder wall measures 2 mm. There is a negative sonographic Ortiz''s sign. There is no pericholecystic fluid. Tiny stones and sludge in the gallbladder. Common Bile Duct (C.B.D.): The common bile duct measures 7 mm. Pancreas: Normal size of the head, body and tail of the pancreas. There is normal echogenicity of the pancreas. 1.2 cm cyst in the head of the pancreas. Right Kidney: Normal size of the right kidney. The right kidney measures 10.9 cm. Normal renal cortex. The right cortex measures 1.2 cm. 1.6 cm cyst in the upper pole the right kidney. Another 2.6 centers cyst in the midsection of right kidney. There is no right hydronephrosis. US/Abdomen Limited IMPRESSION: 1. Cholelithiasis. 2. Multiple small hepatic lesions worrisome for metastatic disease. Correlation with liver mass protocol CT would be useful. 3. Fatty infiltration of liver. 4. 1.2 cm pancreatic cyst. Electronically Signed: Jorge Hunt MD at 21:35 EST ,
== END | disposition home or self-care (01) ==
LOC: US 15:32
PROVIDERS: PCP Internal Medicine; Referring Provider Nurse Practitioner Family; Visit Provider Nurse Practitioner Family
DX: R74.8 Abnormal levels of other serum enzymes (principal)
CPT/HCPCS: 76705

== ENCOUNTER 2023-09-01 13:12 | Inpatient (IN) | payer MEDICARE, OTHER, SELFPAY ==
[2023-09-01] VITALS (12 sets, daily range): BP systolic 76–93; BP diastolic 39–72; PULSE 38–121; RESP 12–23; TEMP 36.2–36.8; O2SAT 94–100; BMI 24.2
--- NOTE | 2023-09-01 13:50 | EKG12_ITS ---
Test Reason : HR Blood Pressure : / mmHG Vent. Rate : 153 BPM Atrial Rate : 000 BPM P-R Int : 000 ms QRS Dur : 066 ms QT Int : 288 ms P-R-T Axes : 000 042 237 degrees QTc Int : 459 ms Critical Test Result: High HR Atrial fibrillation with rapid ventricular response Low voltage QRS ST & T wave abnormality, consider lateral ischemia Abnormal ECG Confirmed by ANA FULLER MD ([id number]), tape editor HALEIGH WILLIAM ([id number]) on 09/12/2023 8:46:16 AM Referred By: ALISHA/BRI Confirmed By:ANA FULLER MD
--- NOTE | 2023-09-01 13:55 | RAD_ITS ---
STUDY: X-RAY CHEST REASON FOR EXAM: Female, 73 years old. Chest pain TECHNIQUE: Single AP portable view of the chest. COMPARISON: Comparison is made with prior study May 15, 2014. FINDINGS: EKG electrodes are seen. Hyperinflation. Mild increased linear markings at the lung bases suggest some mild scarring. There is no demonstrated pleural abnormality. There is borderline cardiomegaly. Normal mediastinum and pedrito. Normal visualized pulmonary arteries. There is atherosclerotic calcification of the aortic arch with tortuosity. There are diffuse degenerative changes of the visualized thoracic spine. Normal visualized ribs, clavicles, and shoulders. There is no demonstrated abnormality of the visualized soft tissue structures of the upper abdomen. RAD/Chest 1 View (Portable) IMPRESSION: Mild scarring at the lung bases. Electronically Signed: Aaron Castro MD at 14:14 EST ,
[2023-09-01 13:59] LABS: Absolute Lymphocyte Count 1.06 X10^3/uL (0.83-4.51); Absolute Neutrophil Count 4.4 X10^3/uL (2.0-7.7); Basophil# 0.02 X10^3/uL; Basophil% 0.3 % (0-1); Eosinophil# 0.01 X10^3/uL; Eosinophils% 0.2 % (0-5); Hematocrit 38.2 % (37-47); Hemoglobin 12.3 g/dL (12.0-15.0); Lymphocyte # 1.06 X10^3/ul (0.83-4.51); Lymphocyte % 18.2 % (19-41); Mean Corp Hgb Conc 32.2 g/dL (32-36); Mean Corpuscular Hgb 30.1 pg (27.0-32.0); Mean Corpuscular Volume 93.4 fL (81-99); Mean Platelet Vol. 9.6 fl (6.2-12.0); Monocyte# 0.32 X10^3/uL; Monocyte% 5.5 % (0-10); NRBC Flagged by Analyzer 0 % (0-5); Neutrophil % 75.3 % (47-70); Platelet Count 337 K/mm3 (150-450); RBC Distribution Width SD 50.2 fl (35.1-43.9); Red Blood Count 4.09 M/mm3 (4.2-5.4); White Blood Count 5.8 K/mm3 (4.4-11.0)
[2023-09-01 14:24] LABS: Anion Gap 4 (5-15); BUN 20 mg/dL (7-18); BUN/Creat Ratio 27.8 RATIO (10-20); Calcium,Total 7.7 mg/dL (8.5-10.1); Chloride 107 mmol/L (98-107); Creatinine, Serum 0.72 mg/dL (0.55-1.02); EST Glomerular Filtration Rate 85 mL/min (>60); Est Glom Filt Rate - Afr Amer 102 mL/min (>60); Estimated Creatinine Clearance 40.78 ml/min; Glucose 105 mg/dL (74-106); Potassium 5.8 mmol/L (3.5-5.1); Sodium Level 135 mmol/L (136-145); Troponin-I HS (w/2H Reflex) 9 pg/mL (3.0-54.0)
--- NOTE | 2023-09-01 14:38 | EX.ED.DYSGE1 ---
HPI History of Present Illness Chief Complaint: Palpitations Informant: patient and family Narrative Narrative: Sent in by home health secondary to fast heart rate and low blood pressure. Patient reportedly has had low blood pressure all week and weakness. Her metoprolol and lisinopril have been on hold because of this. Her heart rate has been running in the 150s this week per her . Patient denies chest pain or shortness of breath. She does have a history of dementia. She does have a known history of A-fib and is on Eliquis. It appears that her previous rate control medicine was metoprolol 25 mg daily. While heart rate in triage was documented at 38 bpm, this was a reading off of the finger pulse ox. When patient has been placed on the monitor her heart rate has not been under 100. [facility] Medical History (HFpEF) heart failure with preserved ejection fraction Anticoagulated Atrial flutter Carotid artery stenosis DDD (degenerative disc disease) Dementia GERD (gastroesophageal reflux disease) History of stroke Hyperlipidemia Longstanding persistent atrial fibrillation Obesity SHYLA treated with BiPAP Osteoporosis Ostium secundum atrial septal defect Painful orthopaedic hardware Right elbow pain Stiffness of right elbow joint Type 2 diabetes mellitus without complication Vitamin D deficiency Home Medications multivitamin with folic acid 400 mcg tablet 1 tab PO DAILY 05/16/14 [History Last Taken Unknown] furosemide 20 mg tablet 20 mg PO DAILY 10/09/17 [History Last Taken Unknown] calcitriol 0.25 mcg capsule 0.25 mcg PO BID 10/10/17 [History Last Taken Unknown] apixaban 5 mg tablet (Eliquis) 5 mg PO BID #60 tabs 08/31/21 [Rx Last Taken Unknown] calcium carbonate 600 mg calcium (1,500 mg) tablet 1,200 mg PO DAILY 05/11/22 [History Last Taken Unknown] citalopram 10 mg tablet 10 mg PO DAILY 05/11/22 [History Last Taken Unknown] donepezil 10 mg tablet 10 mg PO DAILY 05/11/22 [History Last Taken Unknown] ferrous sulfate 325 mg (65 mg iron) tablet (iron) 65 mg PO DAILY 01/19/23 [History Last Taken Unknown] arginine (L-arginine) 500 mg tablet 500 mg PO DAILY 03/31/23 [History Last Taken Unknown] cholecalciferol (vitamin D3) 25 mcg (1,000 unit) capsule 25 mcg PO DAILY 03/31/23 [History Last Taken Unknown] docusate sodium 50 mg capsule 50 mg PO PRN 03/31/23 [History Last Taken Unknown] zinc gluconate 50 mg tablet 50 mg PO DAILY 03/31/23 [History Last Taken Unknown] levothyroxine 150 mcg tablet (Synthroid) 150 mcg PO DAILY 04/06/23 [History Last Taken Unknown] metoprolol succinate 50 mg tablet,extended release 24 hr 25 mg PO QDAY 08/17/23 [History Last Taken Unknown] lisinopril 20 mg tablet 10 mg PO QHS 08/24/23 [History Last Taken Unknown] metoprolol succinate 25 mg tablet,extended release 24 hr 25 mg PO BID 09/01/23 [History Last Taken Unknown] potassium chloride 20 mEq tablet,extended release 20 meq PO BID 09/01/23 [History Last Taken Unknown] Allergy/AdvReac Type Severity Reaction Status Date / Time cephalexin monohydrate Allergy Intermediate Hives Verified 09/01/23 13:35 [From Keflex] ciprofloxacin HCl Allergy Intermediate Hives Verified 09/01/23 13:35 [From Cipro] Environmental Allergies: Allergy Intermediate Hives Verified 09/01/23 13:35 Uncoded [metals] wool Allergy Intermediate Hives Verified 09/01/23 13:35 nickel Allergy Other Verified 09/01/23 13:35 atorvastatin calcium AdvReac Intermediate Pain in Verified 09/01/23 13:35 [From Lipitor] joints rosuvastatin calcium AdvReac Pain in Verified 09/01/23 13:35 [From Crestor] joints Family History Mother Myocardial infarction CAD (coronary artery disease) Father , age 72 Hypertension Surgical History History of atrial septal defect repair (1960) History of cardiac radiofrequency ablation (RFA) (2005) History of section History of gastric bypass History of lateral meniscus repair of right knee History of left heart catheterization (2013) History of thyroidectomy, total (2014) Social History Smoking Status: Former smoker how long ago did patient quit smokin alcohol intake: current alcohol intake frequency: holidays/special occasions only substance use type: does not use caffeine: Yes Type: carbonated beverages Number of servings: 1, coffee Number of servings: 3 and tea Number of servings: 2 ROS ROS ED Constitutional Constitutional ED: Denies chills or fever(s) Eyes Eyes: Denies discharge from eye(s) ENT ENT ED: Denies discharge from eye(s), rhinorrhea or sore throat Cardiovascular Cardiovascular: Reports racing heartbeat; Denies chest pain Respiratory/Chest Respiratory/Chest: Denies cough or dyspnea Gastrointestinal Gastrointestinal: Denies abdominal pain, nausea or vomiting Genitourinary Genitourinary ED: Denies dysuria Musculoskeletal Musculoskeletal: Denies back pain or extremity pain Integumentary Denies Abrasions or rash Neurologic Neurologic: Reports weakness; Denies headache(s) Psychiatric Psychiatric: Denies anxiety or depression Allergic/Immunologic Allergic/Immunologic ED: Denies lip swelling or urticaria EXAM Physical Exam Const Vital Signs: 09/01/23 13:16 09/01/23 13:36 09/01/23 13:50 Temperature 97.4 F L Temperature Source Temporal Pulse Rate 38 L Respiratory Rate 16 Respiratory Effort Normal Respiratory Pattern Normal Blood Pressure 78/39 L Blood Pressure Mean 52 Pulse Ox 95 Oxygen Delivery Method Room Air Room Air 09/01/23 14:44 09/01/23 15:00 09/01/23 15:31 Temperature Temperature Source Pulse Rate 118 H 118 H 121 H Respiratory Rate 23 H 16 16 Respiratory Effort Respiratory Pattern Blood Pressure 87/61 L 78/62 L 93/70 Blood Pressure Mean 69 67 77 Pulse Ox 94 97 98 Oxygen Delivery Method Room Air Room Air Room Air 09/01/23 16:00 Temperature Temperature Source Pulse Rate 104 H Respiratory Rate 16 Respiratory Effort Respiratory Pattern Blood Pressure 84/61 L Blood Pressure Mean 68 Pulse Ox 98 Oxygen Delivery Method Room Air Positive well nourished and well developed General Appearance ED: well developed HEENT Reports moist mucous membranes Eyes EOMs intact bilaterally Chest Wall inspection of chest normal and palpation of chest normal Resp normal respiratory effort and clear to auscultation bilaterally Cardio Rate: tachycardic Rhythm: abnormal rhythm irregularly irregular GI non-tender Palpation: soft Extremity normal to inspection Neuro Neuro Narrative: Patient alert with no focal neurodeficits. Skin Skin Narrative: Superficial abrasion to the left extensor elbow. No bony tenderness. MDM MDM MDM Narrative Medical decision making narrative: Patient placed on vehicle monitor technician. IV line initiated. EKG obtained to evaluate for cardiac arrhythmia/ischemia. Chest x-ray obtained to evaluate for acute lung pathology, cardiac size, or mediastinal abnormality. Labwork obtained to evaluate for leukocytosis, anemia, and electrolyte derangement. At the time of my exam 500 cc IV fluid bolus was ordered to try to support blood pressure so that we can initiate rate control medication. History & Record Review Discussion w/independent historian: Patient and Family Lab Data Attestation: I reviewed the patient's lab results. Labs: Laboratory Results - last 24 hr 09/01/23 13:50 WBC 5.8 RBC 4.09 L Hgb 12.3 Hct 38.2 MCV 93.4 MCH 30.1 MCHC 32.2 RDW Std Deviation 50.2 H RDW Coeff of Emily 15.0 H Plt Count 337 MPV 9.6 Immature Gran % (Auto) 0.500 Neut % (Auto) 75.3 H Lymph % (Auto) 18.2 L Hale % (Auto) 5.5 Eos % (Auto) 0.2 Baso % (Auto) 0.3 Absolute Neuts (auto) 4.4 Absolute Lymphs (auto) 1.06 Nucleated RBC % 0 Sodium 135 L Potassium 5.8 H Chloride 107 Carbon Dioxide 24.0 Anion Gap 4 L BUN 20 H Creatinine 0.72 Estim Creat Clear Calc 40.78 Est GFR (MDRD) Af Amer 102 Est GFR (MDRD) Non-Af 85 BUN/Creatinine Ratio 27.8 H Glucose 105 Calcium 7.7 L Troponin I High Sens 9 Radiography Chest X-Ray - ED: 1 View, Read by ED Physician and Chronic Changes Diagnostic Testing: Clinical Impression(s) from Imaging Studies Chest X-Ray 09/01/23 13:55 IMPRESSION: Mild scarring at the lung bases. Electronically Signed: Aaron Castro MD at 14:14 EST , EKG Initial EKG: Attestation: I personally reviewed and interpreted this EKG as follows: Interpretation: Atrial Fibrillation (A-fib RVR with ventricular rate of 153. Nonspecific anterior lateral ST changes.) Treatment and Re-Evaluation :: Patient given IV fluids to help support blood pressure as well as control heart rate. CBC was normal white count of 5.8 with a hemoglobin of 12.3. Chemistry studies significant for potassium of 5.8, however moderate hemolysis is noted. BUN is 20 but creatinine is normal at 0.72. Glucose is 105. Troponin is normal at 9. Patient's heart rate is down to as low as 102 and up to 120 with IV fluids. Her blood pressure remains low in the 80s to 90s systolic. Her MAP has been greater than 65. I spoke with hospitalist regarding admission to help manage her cardiac medications. She has had weakness with a couple falls at home. Family is in agreement with the plan. Discharge Plan Triage Chief Complaint: Palpitations ED Provider: Fernanda Woodruff Dx/Rx/DC Orders Clinical Impression: Weakness, Hypotension, Atrial fibrillation with RVR Prescriptions: No Action furosemide 20 mg tablet 20 mg PO DAILY calcitriol 0.25 mcg capsule 0.25 mcg PO BID donepezil 10 mg tablet 10 mg PO DAILY Patient Comments: TAKE 1 TABLET BY MOUTH EVERY MORNING citalopram 10 mg tablet 10 mg PO DAILY multivitamin with folic acid 1 TABLET tablet 1 tab PO DAILY Patient Comments: supplement calcium carbonate 600 mg calcium (1,500 mg) tablet 1,200 mg PO DAILY Patient Comments: IN AM, supplement ferrous sulfate [iron] 325 mg (65 mg iron) Tablet 65 mg PO DAILY zinc gluconate 50 mg tablet 50 mg PO DAILY cholecalciferol (vitamin D3) 25 mcg (1,000 unit) capsule 25 mcg PO DAILY docusate sodium 50 mg capsule 50 mg PO PRN arginine (L-arginine) 500 mg tablet 500 mg PO DAILY Rx Instructions: administer after a meal levothyroxine [Synthroid] 150 mcg tablet 150 mcg PO DAILY Patient Comments: TAKE 1 TABLET BY MOUTH DAILY metoprolol succinate 50 mg tablet extended release 24 hr 25 mg PO QDAY lisinopril 20 mg tablet 10 mg PO QHS metoprolol succinate 25 mg tablet extended release 24 hr 25 mg PO BID potassium chloride 20 mEq tablet extended release 20 meq PO BID Eliquis 5 mg tablet 5 mg PO BID Qty: 60 11RF Primary Care Provider: Justyna Santos Referrals: Justyna Santos MD [Primary Care Provider] - Disposition Disposition: Acute Care Hospital [facility]
[2023-09-01] MEDS: 0.9% Normal Saline (1000mL) 1,000 ML 1000 ML IV (15:09)
[2023-09-01 15:55] LABS: Reflex Troponin-HS? (from REC) Y
--- NOTE | 2023-09-01 16:34 | NURSING ---
PCU TERELETSKY AFIB, HYPOTENSION, WEAKNESS
[2023-09-01 16:39] LABS: Troponin-I HS 7 pg/mL (3.0-54.0)
[2023-09-01] MEDS: Digoxin 250 MCG/ML Ampul 500 MCG IV (16:50)
--- NOTE | 2023-09-01 16:53 | HP.PCM.HOS_ITS ---
HPI - General General Date of Admission: 09/01/23 Date of Service: 09/01/23 Chief Complaint: Elevated heart rate, hypotension HPI Narrative JODI MOMIN, is a 73 F who presents to the emergency room at [facility] after being brought in by her family due to an elevated heart rate and low blood pressure. Patient's family has been holding her blood pressure medications due to her low blood pressure, patient has a history of A- fib and is chronically in A-fib. She has had 1 cardioversion but had a stroke after the cardioversion so according to the family, she is not a candidate to receive any other cardioversion. Patient has a history of dementia according to family members. Evaluation in the emergency room included an EKG which showed atrial fibs with a rate of 153, labs were obtained, she had a normal CBC, chemistry panel showed a sodium of 135, potassium was 5.8 (specimen was thought to be hemolyzed) and a BUN of 20. Troponin was unremarkable. Patient's chest x-ray showed mild scarring at the lung bases. I discussed her CODE STATUS with the patient's family, patient told the family that she wants to be fully resuscitated if something happens. Patient will be given IV digoxin in the emergency room, she was given IV fluids in the emergency room, she would be admitted to PCU for further care. [facility] Medical History (HFpEF) heart failure with preserved ejection fraction Anticoagulated Atrial flutter Carotid artery stenosis DDD (degenerative disc disease) Dementia GERD (gastroesophageal reflux disease) History of stroke Hyperlipidemia Longstanding persistent atrial fibrillation Obesity SHYLA treated with BiPAP Osteoporosis Ostium secundum atrial septal defect Painful orthopaedic hardware Right elbow pain Stiffness of right elbow joint Type 2 diabetes mellitus without complication Vitamin D deficiency Home Medications multivitamin with folic acid 400 mcg tablet 1 tab PO DAILY 05/16/14 [History Last Taken Unknown] furosemide 20 mg tablet 20 mg PO DAILY 10/09/17 [History Last Taken Unknown] calcitriol 0.25 mcg capsule 0.25 mcg PO BID 10/10/17 [History Last Taken Unknown] apixaban 5 mg tablet (Eliquis) 5 mg PO BID #60 tabs 08/31/21 [Rx Last Taken Unknown] calcium carbonate 600 mg calcium (1,500 mg) tablet 1,200 mg PO DAILY 05/11/22 [History Last Taken Unknown] citalopram 10 mg tablet 10 mg PO DAILY 05/11/22 [History Last Taken Unknown] donepezil 10 mg tablet 10 mg PO DAILY 05/11/22 [History Last Taken Unknown] ferrous sulfate 325 mg (65 mg iron) tablet (iron) 65 mg PO DAILY 01/19/23 [History Last Taken Unknown] arginine (L-arginine) 500 mg tablet 500 mg PO DAILY 03/31/23 [History Last Taken Unknown] cholecalciferol (vitamin D3) 25 mcg (1,000 unit) capsule 25 mcg PO DAILY 03/31/23 [History Last Taken Unknown] docusate sodium 50 mg capsule 50 mg PO PRN 03/31/23 [History Last Taken Unknown] zinc gluconate 50 mg tablet 50 mg PO DAILY 03/31/23 [History Last Taken Unknown] levothyroxine 150 mcg tablet (Synthroid) 150 mcg PO DAILY 04/06/23 [History Last Taken Unknown] metoprolol succinate 50 mg tablet,extended release 24 hr 25 mg PO QDAY 08/17/23 [History Last Taken Unknown] lisinopril 20 mg tablet 10 mg PO QHS 08/24/23 [History Last Taken Unknown] metoprolol succinate 25 mg tablet,extended release 24 hr 25 mg PO BID 09/01/23 [History Last Taken Unknown] potassium chloride 20 mEq tablet,extended release 20 meq PO BID 09/01/23 [History Last Taken Unknown] Allergy/AdvReac Type Severity Reaction Status Date / Time cephalexin monohydrate Allergy Intermediate Hives Verified 09/01/23 13:35 [From Keflex] ciprofloxacin HCl Allergy Intermediate Hives Verified 09/01/23 13:35 [From Cipro] Environmental Allergies: Allergy Intermediate Hives Verified 09/01/23 13:35 Uncoded [metals] wool Allergy Intermediate Hives Verified 09/01/23 13:35 nickel Allergy Other Verified 09/01/23 13:35 atorvastatin calcium AdvReac Intermediate Pain in Verified 09/01/23 13:35 [From Lipitor] joints rosuvastatin calcium AdvReac Pain in Verified 09/01/23 13:35 [From Crestor] joints Family History Mother Myocardial infarction CAD (coronary artery disease) Father , age 72 Hypertension Surgical History History of atrial septal defect repair (196) History of cardiac radiofrequency ablation (RFA) (2005) History of section History of gastric bypass History of lateral meniscus repair of right knee History of left heart catheterization (2013) History of thyroidectomy, total (2014) Social History Smoking Status: Former smoker how long ago did patient quit smokin alcohol intake: current alcohol intake frequency: holidays/special occasions only substance use type: does not use caffeine: Yes Type: carbonated beverages Number of servings: 1, coffee Number of servings: 3 and tea Number of servings: 2 ROS ROS Narrative Patient has a history of dementia Review of Systems ROS Unobtainable: due to mental condition Vital Signs Vital Signs Vital Signs: 09/01/23 13:16 09/01/23 13:36 09/01/23 13:50 Temperature 97.4 F L Temperature Source Temporal Pulse Rate 38 L Respiratory Rate 16 Respiratory Effort Normal Respiratory Pattern Normal Blood Pressure 78/39 L Blood Pressure Mean 52 Pulse Ox 95 Oxygen Delivery Method Room Air Room Air 09/01/23 14:44 09/01/23 15:00 09/01/23 15:31 Temperature Temperature Source Pulse Rate 118 H 118 H 121 H Respiratory Rate 23 H 16 16 Respiratory Effort Respiratory Pattern Blood Pressure 87/61 L 78/62 L 93/70 Blood Pressure Mean 69 67 77 Pulse Ox 94 97 98 Oxygen Delivery Method Room Air Room Air Room Air 09/01/23 16:00 09/01/23 16:30 Temperature 97.6 F L Temperature Source Pulse Rate 104 H 114 H Respiratory Rate 16 16 Respiratory Effort Respiratory Pattern Blood Pressure 84/61 L 89/72 L Blood Pressure Mean 68 77 Pulse Ox 98 98 Oxygen Delivery Method Room Air Weight Weight: 50.802 kg Body Mass Index (BMI) 24.2 Physical Exam Const alert, no apparent distress, average body habitus and healthy appearing General Appearance: cooperative, well kempt and well developed Orientation / Consciousness: awake, oriented to person and oriented to place HEENT normocephalic, head/scalp atraumatic, hearing grossly normal bilaterally and moist oral mucous membranes Eyes PERRL, EOMs intact bilaterally and conjunctivae normal Neck supple, no JVD, thyroid normal and no carotid bruits General: trachea midline Resp normal respiratory effort, no retractions, no use of accessory muscles and clear to auscultation bilaterally Auscultation: Negative for rales, rhonchi or wheezes Cardio S1 normal heart sound, S2 normal heart sound, no murmurs, no rub and no gallops Cardio Narrative: Heart rate and rhythm is irregular GI normal to inspection, nondistended, normoactive bowel sounds, soft to palpation, non-tender and non-distended Extremity Extremity Narrative: Patient has +1 to +2 pitting edema in the lower legs Skin no rashes or lesions noted General Skin Exam: no breakdown Neuro CN's II-XII intact bilaterally, moves all extremities, no focal motor deficits and no sensory deficits noted Sensorium / Orientation: awake, alert, oriented to person and oriented to place Speech: speech normal Psych Psych Narrative: Patient exhibits some mild confusion Results Lab / Micro Data 09/01/23 13:50 09/01/23 13:50 Labs: Laboratory Results - last 24 hr 09/01/23 13:50: WBC 5.8, RBC 4.09 L, Hgb 12.3, Hct 38.2, MCV 93.4, MCH 30.1, MCHC 32.2, RDW Std Deviation 50.2 H, RDW Coeff of Emily 15.0 H, Plt Count 337, MPV 9.6, Immature Gran % (Auto) 0.500, Neut % (Auto) 75.3 H, Lymph % (Auto) 18.2 L, [place] % (Auto) 5.5, Eos % (Auto) 0.2, Baso % (Auto) 0.3, Absolute Neuts (auto) 4.4, Absolute Lymphs (auto) 1.06, Nucleated RBC % 0, Sodium 135 L, Potassium 5.8 H, Chloride 107, Carbon Dioxide 24.0, Anion Gap 4 L, BUN 20 H, Creatinine 0.72, Estim Creat Clear Calc 40.78, Est GFR (MDRD) Af Amer 102, Est GFR (MDRD) Non-Af 85, BUN/Creatinine Ratio 27.8 H, Glucose 105, Calcium 7.7 L, Troponin I High Sens 9 09/01/23 16:05: Troponin I High Sens 7 Imagaing Radiology Impression Chest X-Ray 09/01/23 13:55 IMPRESSION: Mild scarring at the lung bases. Electronically Signed: Aaron Castro MD at 14:14 EST , Assessment & Plan Assessment/Plan (1) Atrial fibrillation with RVR: PLAN: Plan 1. Atrial fibrillation (persistent) now with RVR-patient will be admitted to PCU, she will be monitored on telemetry, for now we will try rate control using digoxin, if her blood pressure improves, I will place her back on her beta- nain which she is taking at home. Patient is also on Eliquis at home. #2 hypotension-etiology of this is not clear at this time, I do not believe the patient is septic, patient will be given IV fluids and attempt elevated blood pressure. #3 dementia-patient will remain on her home medication #4 hypercoagulable state secondary to atrial fibrillation-patient is currently on Eliquis #5 cerebrovascular disease-patient is currently on Eliquis, she does not take aspirin Total clinical time spent by myself addressing the patient's medical issues, reviewing all of her data, and collaborating with patient's care team: 55 minutes Charges/Coding Visit Charges Inpatient E&M: 92235 Init Hosp L2
[2023-09-01] MEDS: 0.9% Normal Saline (1000mL) 1,000 ML 100 ML IV (18:03)
[2023-09-01] MEDS: APIXABAN 5 MG TABLET PO (20:08)
[2023-09-01] MEDS: Donepezil HCl 10 MG Tablet PO (20:08)
[2023-09-01] MEDS: Digoxin 250 MCG/ML Ampul IV (23:17)
[2023-09-01] MEDS: 0.9% Saline Lock 10 ML Syringe IV (23:19)
[2023-09-02] VITALS (14 sets, daily range): BP systolic 80–111; BP diastolic 50–70; PULSE 66–121; RESP 10–17; TEMP 36.3–36.9; O2SAT 97–98
[2023-09-02] MEDS: 0.9% Normal Saline (1000mL) 1,000 ML 100 ML IV ×3 (03:35→23:28)
[2023-09-02] MEDS: Levothyroxine 150 MCG Tablet PO (05:07)
[2023-09-02] MEDS: Menthol/Lanolin/Calamine/Znox 113 GM Tube 1 APPLIC TOPICAL ×3 (05:08→20:38)
[2023-09-02 07:26] LABS: Anion Gap 2 (5-15); BUN 15 mg/dL (7-18); BUN/Creat Ratio 36.9 RATIO (10-20); Calcium,Total 7.1 mg/dL (8.5-10.1); Chloride 113 mmol/L (98-107); Creatinine, Serum 0.41 mg/dL (0.55-1.02); EST Glomerular Filtration Rate 163 mL/min (>60); Est Glom Filt Rate - Afr Amer 197 mL/min (>60); Glucose 79 mg/dL (74-106); Potassium 3.8 mmol/L (3.5-5.1); Sodium Level 141 mmol/L (136-145)
[2023-09-02] MEDS: Ferrous Sulfate 325 MG Tablet PO (08:57)
[2023-09-02] MEDS: Citalopram 10 MG Tablet PO (08:57)
[2023-09-02] MEDS: Metoprolol Tartrate 25 MG Tablet 12.5 MG PO (08:58)
[2023-09-02] MEDS: APIXABAN 5 MG TABLET PO ×2 (08:58→20:38)
--- NOTE | 2023-09-02 11:20 | CASEMGMT ---
HESHAM LOPEZ Face to Face with patient for initial transition planning/care coordination assessment. RN CM introduced self and role at [facility]. Patient lying in bed, alert and slightly confused, at bedside. Patient and willing to participate in assessment and is able to answer all questions appropriately. Care providers, pharmacy, and demographics verified. Patient wishes to discharge home, with resumption fo CCN. Patient and state they has no further needs or concerns at this time. CM to follow for discharge planning needs that may arise. 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 Patient is independent at home. Transportation: DME/HHC: Patient has shower chair, walker, cpap, and pulse ox at home. Patient has been to [facility] in the past. Patient is active with CCN Disposition Plan: Patient to discharge home with CCN, family support, and follow-up plans in place. Kaye MARIA, RN, CM
--- NOTE | 2023-09-02 14:43 | PCM.PN.HOSP ---
Subjective Subjective Doing well, denies any lightheadedness or dizziness Objective Data Objective Data Vital Signs: Vital Signs Temp Pulse Resp BP Pulse Ox O2 Del Method 97.4 F L 70 16 80/50 L 97 Room Air 09/02/23 08:54 09/02/23 11:47 09/02/23 08:54 09/02/23 11:47 09/02/23 08:54 09/02/23 09:00 Oxygen Delivery Method Room Air Weight: 111 lb 12.39 oz Body Mass Index (BMI) 24.2 Intake & Output: Intake and Output for Last 24 Hours 09/01/23 09/02/23 09/03/23 03:59 03:59 03:59 Intake Total 1693.33 / 1693.33 1000 / 1000 Balance 1693.33 / 1693.33 1000 / 1000 Lab / Micro Data 09/01/23 13:50 09/02/23 06:47 Labs: Laboratory Results - last 24 hr 09/01/23 16:05: Troponin I High Sens 7 09/02/23 06:47: Sodium 141, Potassium 3.8, Chloride 113 H, Carbon Dioxide 26.0, Anion Gap 2 L, BUN 15, Creatinine 0.41 L, Estim Creat Clear Calc 40.70, Est GFR (MDRD) Af Amer 197, Est GFR (MDRD) Non-Af 163, BUN/Creatinine Ratio 36.9 H, Glucose 79, Calcium 7.1 L Physical Exam Narrative General: Alert, Oriented x3, Cooperative, No apparent distress HEENT: Atraumatic, PERRLA, EOMI, Normocephalic Oral: Moist Mucosa Neck: Supple, No JVD Lungs: Diminished, Normal air movement, No rhonchi, No wheeze, No rales Cardiovascular: Regular rate, Regular Rhythm, Normal S1, Normal S2, No murmurs Abdomen: Soft, Non Tender, Non-Distended, No Hepato-splenomegaly Extremities: Trace edema, Capillary Refill Less than 3 Seconds Skin: No rashes, No breakdown Musculoskeletal: No Tenderness to Palpation of Joints or Extremities Neurological: Cranial nerves II-XII grossly intact, Motor Exam 5/5 strength throughout, Sensory exam intact to light touch and pain Psych/Mental Status: Normal Affect, Appropriate Assessment & Plan Assessment/Plan (1) Atrial fibrillation with RVR: PLAN: Plan 1. A-fib with RVR/HTN/HLD ? She is currently hypotensive so hold her lisinopril and Lasix, it is unclear as to what her etiology is for her hypotension whether it was accidental overdose on medications versus dehydration or some other source. She was given IV fluids in the ER ? Will consult cardiology if she continues to have lower blood pressures her heart rate did improve and she is asymptomatic but she may need to be transition from rate control or rhythm control ? Echo on 08/09/2023 with an EF of 50% and a PASP of 28 mmHg ? We will continue with her home Eliquis 2. Hypothyroidism ? Stable/continue with Synthroid 3. Dementia/anxiety/depression ? Stable ? Continue with her home medications DVT: Eliquis Charges/Coding Visit Charges Inpatient E&M: 33560 Subs Hosp L2
[2023-09-02] MEDS: Donepezil HCl 10 MG Tablet PO (20:38)
[2023-09-03] VITALS (8 sets, daily range): BP systolic 83–111; BP diastolic 54–62; PULSE 78–117; RESP 15–19; TEMP 36.4–36.6; O2SAT 93–96
[2023-09-03] MEDS: Menthol/Lanolin/Calamine/Znox 113 GM Tube 1 APPLIC TOPICAL ×3 (05:37→21:21)
[2023-09-03] MEDS: Levothyroxine 150 MCG Tablet PO (05:37)
[2023-09-03 06:50] LABS: Absolute Lymphocyte Count 1.01 X10^3/uL (0.83-4.51); Absolute Neutrophil Count 2.4 X10^3/uL (2.0-7.7); Basophil# 0.03 X10^3/uL; Basophil% 0.8 % (0-1); Eosinophil# 0.04 X10^3/uL; Hematocrit 34.5 % (37-47); Hemoglobin 10.9 g/dL (12.0-15.0); Lymphocyte # 1.01 X10^3/ul (0.83-4.51); Lymphocyte % 26.4 % (19-41); Mean Corp Hgb Conc 31.6 g/dL (32-36); Mean Corpuscular Hgb 30.7 pg (27.0-32.0); Mean Corpuscular Volume 97.2 fL (81-99); Mean Platelet Vol. 9.7 fl (6.2-12.0); Monocyte# 0.29 X10^3/uL; Monocyte% 7.6 % (0-10); NRBC Flagged by Analyzer 0 % (0-5); Neutrophil # 2.44 X10^3/uL (2.7-7.7); Neutrophil % 63.7 % (47-70); Platelet Count 238 K/mm3 (150-450); RBC Distribution Width CV 15.1 % (11.6-14.6); RBC Distribution Width SD 53.1 fl (35.1-43.9); Red Blood Count 3.55 M/mm3 (4.2-5.4); White Blood Count 3.8 K/mm3 (4.4-11.0)
[2023-09-03 07:08] LABS: Anion Gap 2 (5-15); BUN 12 mg/dL (7-18); BUN/Creat Ratio 31.6 RATIO (10-20); Calcium,Total 7.4 mg/dL (8.5-10.1); Chloride 116 mmol/L (98-107); Creatinine, Serum 0.38 mg/dL (0.55-1.02); EST Glomerular Filtration Rate 177 mL/min (>60); Est Glom Filt Rate - Afr Amer 214 mL/min (>60); Glucose 75 mg/dL (74-106); Potassium 3.4 mmol/L (3.5-5.1); Sodium Level 143 mmol/L (136-145)
[2023-09-03] MEDS: Citalopram 10 MG Tablet PO (09:24)
[2023-09-03] MEDS: APIXABAN 5 MG TABLET PO ×2 (09:24→21:21)
[2023-09-03] MEDS: Ferrous Sulfate 325 MG Tablet PO (09:24)
[2023-09-03] MEDS: Digoxin 125 MCG Tablet PO (09:34)
--- NOTE | 2023-09-03 09:50 | PCM.PN.HOSP ---
Subjective Subjective Continues to be hypotensive but is asymptomatic Objective Data Objective Data Vital Signs: Vital Signs Temp Pulse Resp BP Pulse Ox O2 Del Method 97.5 F L 113 H 16 83/54 L 96 Room Air 09/03/23 09:22 09/03/23 09:22 09/03/23 09:22 09/03/23 09:22 09/03/23 09:22 09/03/23 09:22 Oxygen Delivery Method Room Air Weight: 111 lb 12.39 oz Body Mass Index (BMI) 24.2 Intake & Output: Intake and Output for Last 24 Hours 09/02/23 09/03/23 09/04/23 03:59 03:59 03:59 Intake Total 1693.33 / 1693.33 2866.67 / 2866.67 Output Total 1150 / 1150 200 / 200 Balance 1693.33 / 1693.33 1716.67 / 1716.67 -200 / -200 Lab / Micro Data 09/03/23 05:30 09/03/23 05:30 Labs: Laboratory Results - last 24 hr 09/03/23 05:30: WBC 3.8 L, RBC 3.55 L, Hgb 10.9 L, Hct 34.5 L, MCV 97.2, MCH 30.7, MCHC 31.6 L, RDW Std Deviation 53.1 H, RDW Coeff of Emily 15.1 H, Plt Count 238, MPV 9.7, Immature Gran % (Auto) 0.500, Neut % (Auto) 63.7, Lymph % (Auto) 26.4, [place] % (Auto) 7.6, Eos % (Auto) 1.0, Baso % (Auto) 0.8, Absolute Neuts (auto) 2.4, Absolute Lymphs (auto) 1.01, Nucleated RBC % 0, Sodium 143, Potassium 3.4 L, Chloride 116 H, Carbon Dioxide 25.0, Anion Gap 2 L, BUN 12, Creatinine 0.38 L, Estim Creat Clear Calc 40.70, Est GFR (MDRD) Af Amer 214, Est GFR (MDRD) Non-Af 177, BUN/Creatinine Ratio 31.6 H, Glucose 75, Calcium 7.4 L Physical Exam Narrative General: Alert, Oriented x3, Cooperative, No apparent distress HEENT: Atraumatic, PERRLA, EOMI, Normocephalic Oral: Moist Mucosa Neck: Supple, No JVD Lungs: Diminished, Normal air movement, No rhonchi, No wheeze, No rales Cardiovascular: Regular rate, Regular Rhythm, Normal S1, Normal S2, No murmurs Abdomen: Soft, Non Tender, Non-Distended, No Hepato-splenomegaly Extremities: Trace edema, Capillary Refill Less than 3 Seconds Skin: No rashes, No breakdown Musculoskeletal: No Tenderness to Palpation of Joints or Extremities Neurological: Cranial nerves II-XII grossly intact, Motor Exam 5/5 strength throughout, Sensory exam intact to light touch and pain Psych/Mental Status: Normal Affect, Appropriate Assessment & Plan Assessment/Plan (1) Atrial fibrillation with RVR: PLAN: Plan 1. A-fib with RVR/HTN/HLD ? She is currently hypotensive so hold her lisinopril and Lasix, it is unclear as to what her etiology is for her hypotension whether it was accidental overdose on medications versus dehydration or some other source. She was given IV fluids in the ER ? Will consult cardiology, will start her on digoxin this morning ? Echo on 08/09/2023 with an EF of 50% and a PASP of 28 mmHg ? We will continue with her home Eliquis 2. Hypothyroidism ? Stable/continue with Synthroid 3. Dementia/anxiety/depression ? Stable ? Continue with her home medications DVT: Eliquis Charges/Coding Visit Charges Inpatient E&M: 00580 Subs Hosp L2
[2023-09-03] MEDS: 0.9% Normal Saline (1000mL) 1,000 ML 100 ML IV ×2 (09:55→18:47)
--- NOTE | 2023-09-03 12:16 | PCM.CONS.C ---
Assessment & Plan Assessment/Plan (1) (HFpEF) heart failure with preserved ejection fraction: (2) Hypotension: (3) Atrial fibrillation with RVR: PLAN: 73-year-old patient, seen and evaluated today at bedside along with the nursing staff and daughter were at bedside at time of evaluation. She is comfortable she does not have any symptoms of chest pain. Mild shortness of breath. Referred from the home health with fast heart rate/A-fib with RVR and hypotension. No symptoms reported or Particular no chest pain or shortness of breath Patient does have a history of dementia. Other medical problem include history of heart failure with preserved ejection fraction History of atrial flutter/A-fib Has been on anticoagulation. Cardiac care plan recommendations; 1. I reviewed and discussed all the current medication Will continue on anticoagulation 2. Her renal function is normal and started on low-dose digoxin If blood pressure improved on IV fluids then to add low-dose beta-nain metoprolol tartrate 12.5 mg twice daily Will plan for event monitor as an outpatient Also I discussed possible need an evaluation as an outpatient for a pacemaker implant due to tachybradycardia syndrome. And difficult to maintaining on AV blocking medication with hypotension. Will arrange for outpatient follow-up with the primary net developer software engineer c Dr. Chowdhury HPI Consult Data Date of Consult: 09/03/23 HPI Narrative Reason for Consultation: Atrial fibrillation/hypotension HPI Narrative: JODI MOMIN, is a 73 F who presents COUNTS INCLUDE 234 BEDS AT THE [facility] Medical History (Updated 09/01/23 @ 17:15 by Veena Blanca) (HFpEF) heart failure with preserved ejection fraction Anticoagulated Atrial fibrillation Atrial flutter Carotid artery stenosis Chronic pain Congestive heart failure (CHF) CPAP (continuous positive airway pressure) dependence DDD (degenerative disc disease) Dementia Former smoker GERD (gastroesophageal reflux disease) History of stroke Hyperlipidemia Hypothyroidism Longstanding persistent atrial fibrillation Obesity SHYLA treated with BiPAP Osteoporosis Ostium secundum atrial septal defect Painful orthopaedic hardware Right elbow pain Stiffness of right elbow joint Stroke/cerebrovascular accident TIA (transient ischemic attack) Type 2 diabetes mellitus without complication Vitamin D deficiency Home Medications multivitamin with folic acid 400 mcg tablet 1 tab PO DAILY 05/16/14 [History Last Taken Unknown] furosemide 20 mg tablet 20 mg PO DAILY 10/09/17 [History Last Taken Unknown] calcitriol 0.25 mcg capsule 0.25 mcg PO BID 10/10/17 [History Last Taken Unknown] apixaban 5 mg tablet (Eliquis) 5 mg PO BID #60 tabs 08/31/21 [Rx Last Taken Unknown] calcium carbonate 600 mg calcium (1,500 mg) tablet 1,200 mg PO DAILY 05/11/22 [History Last Taken Unknown] citalopram 10 mg tablet 10 mg PO DAILY 05/11/22 [History Last Taken Unknown] donepezil 10 mg tablet 10 mg PO DAILY 05/11/22 [History Last Taken Unknown] ferrous sulfate 325 mg (65 mg iron) tablet (iron) 65 mg PO DAILY 01/19/23 [History Last Taken Unknown] arginine (L-arginine) 500 mg tablet 500 mg PO DAILY 03/31/23 [History Last Taken Unknown] cholecalciferol (vitamin D3) 25 mcg (1,000 unit) capsule 25 mcg PO DAILY 03/31/23 [History Last Taken Unknown] docusate sodium 50 mg capsule 50 mg PO PRN 03/31/23 [History Last Taken Unknown] zinc gluconate 50 mg tablet 50 mg PO DAILY 03/31/23 [History Last Taken Unknown] levothyroxine 150 mcg tablet (Synthroid) 150 mcg PO DAILY 04/06/23 [History Last Taken Unknown] metoprolol succinate 50 mg tablet,extended release 24 hr 25 mg PO QDAY 08/17/23 [History Last Taken Unknown] lisinopril 20 mg tablet 10 mg PO QHS 08/24/23 [History Last Taken Unknown] metoprolol succinate 25 mg tablet,extended release 24 hr 25 mg PO BID 09/01/23 [History Last Taken Unknown] potassium chloride 20 mEq tablet,extended release 20 meq PO BID 09/01/23 [History Last Taken Unknown] Allergy/AdvReac Type Severity Reaction Status Date / Time cephalexin monohydrate Allergy Intermediate Hives Verified 09/01/23 13:35 [From Keflex] ciprofloxacin HCl Allergy Intermediate Hives Verified 09/01/23 13:35 [From Cipro] Environmental Allergies: Allergy Intermediate Hives Verified 09/01/23 13:35 Uncoded [metals] wool Allergy Intermediate Hives Verified 09/01/23 13:35 nickel Allergy Other Verified 09/01/23 13:35 atorvastatin calcium AdvReac Intermediate Pain in Verified 09/01/23 13:35 [From Lipitor] joints rosuvastatin calcium AdvReac Pain in Verified 09/01/23 13:35 [From Crestor] joints Family History Mother Myocardial infarction CAD (coronary artery disease) Father , age 72 Hypertension Surgical History History of atrial septal defect repair (1960) History of cardiac radiofrequency ablation (RFA) (2005) History of section History of gastric bypass History of lateral meniscus repair of right knee History of left heart catheterization (2013) History of thyroidectomy, total (2014) Social History Smoking Status: Former smoker how long ago did patient quit smokin alcohol intake: current alcohol intake frequency: holidays/special occasions only substance use type: does not use caffeine: Yes Type: carbonated beverages Number of servings: 1, coffee Number of servings: 3 and tea Number of servings: 2 Physical Exam Cardio Cardio Narrative: Seen and evaluated at bedside Family were at bedside at time of evaluation. Patient had a history of dementia Review of the cardiac telemetry revealed underlying atrial fibrillation Cardiac exam S1-S2 is regular Chest exam is clear to auscultation bilateral Risk Stratification Risk Stratification Applicable: No Objective Data Vital Signs: Vital Signs Temp Pulse Resp BP Pulse Ox O2 Del Method 97.5 F L 117 H 16 83/54 L 96 Room Air 09/03/23 09:22 09/03/23 09:34 09/03/23 09:22 09/03/23 09:22 09/03/23 09:22 09/03/23 09:22 Oxygen Delivery Method Room Air Weight: 111 lb 12.39 oz Body Mass Index (BMI) 24.2 Intake & Output: Intake and Output for Last 24 Hours 09/01/23 09/02/23 09/03/23 23:59 23:59 23:59 Intake Total 740 / 740 3820.00 / 3820.00 1000 / 1000 Output Total 750 / 750 600 / 600 Balance 740 / 740 3070.00 / 3070.00 400 / 400 Lab / Micro Data 09/03/23 05:30 09/03/23 05:30 Labs: Laboratory Results - last 24 hr 09/03/23 05:30: WBC 3.8 L, RBC 3.55 L, Hgb 10.9 L, Hct 34.5 L, MCV 97.2, MCH 30.7, MCHC 31.6 L, RDW Std Deviation 53.1 H, RDW Coeff of Emily 15.1 H, Plt Count 238, MPV 9.7, Immature Gran % (Auto) 0.500, Neut % (Auto) 63.7, Lymph % (Auto) 26.4, [place] % (Auto) 7.6, Eos % (Auto) 1.0, Baso % (Auto) 0.8, Absolute Neuts (auto) 2.4, Absolute Lymphs (auto) 1.01, Nucleated RBC % 0, Sodium 143, Potassium 3.4 L, Chloride 116 H, Carbon Dioxide 25.0, Anion Gap 2 L, BUN 12, Creatinine 0.38 L, Estim Creat Clear Calc 40.70, Est GFR (MDRD) Af Amer 214, Est GFR (MDRD) Non-Af 177, BUN/Creatinine Ratio 31.6 H, Glucose 75, Calcium 7.4 L Cardiology Labs/Tests 09/03/23 05:30: WBC 3.8 L, RBC 3.55 L, Hgb 10.9 L, Hct 34.5 L, MCV 97.2, MCH 30.7, MCHC 31.6 L, Plt Count 238, MPV 9.7, Immature Gran % (Auto) 0.500, Neut % (Auto) 63.7, Lymph % (Auto) 26.4, [place] % (Auto) 7.6, Eos % (Auto) 1.0, Baso % (Auto) 0.8, Absolute Neuts (auto) 2.4, Nucleated RBC % 0, Sodium 143, Potassium 3.4 L, Chloride 116 H, Carbon Dioxide 25.0, Anion Gap 2 L, BUN 12, Creatinine 0.38 L, Est GFR (MDRD) Af Amer 214, Est GFR (MDRD) Non-Af 177, BUN/Creatinine Ratio 31.6 H, Glucose 75, Calcium 7.4 L Rhythm: EKG: ECHO: Stress Test: Cardiac Cath: PCI: CT Surgery: Holter monitor: EPS: PPM: CXR: Chest CT Scan:
[2023-09-03 18:35] LABS: AST(SGOT) 49 U/L (15-37); Alanine Aminotransfer ALT/SGPT 56 U/L (13-56)
[2023-09-03] MEDS: Donepezil HCl 10 MG Tablet PO (21:21)
[2023-09-04 03:20] VITALS: BP 86/56; PULSE 90; RESP 18; TEMP 36.8; O2SAT 93
[2023-09-04] MEDS: 0.9% Normal Saline (1000mL) 1,000 ML 100 ML IV ×2 (04:58→16:00)
[2023-09-04] MEDS: Menthol/Lanolin/Calamine/Znox 113 GM Tube 1 APPLIC TOPICAL ×3 (04:58→21:45)
[2023-09-04] MEDS: Levothyroxine 150 MCG Tablet PO (04:58)
[2023-09-04 05:00] VITALS: BP 93/57; PULSE 105; RESP 17; TEMP 36.8; O2SAT 96
[2023-09-04 06:19] LABS: Absolute Neutrophil Count 3.1 X10^3/uL (2.0-7.7); Basophil# 0.03 X10^3/uL; Basophil% 0.6 % (0-1); Eosinophil# 0.06 X10^3/uL; Eosinophils% 1.3 % (0-5); Hematocrit 37.2 % (37-47); Hemoglobin 11.8 g/dL (12.0-15.0); Lymphocyte % 25.1 % (19-41); Mean Corp Hgb Conc 31.7 g/dL (32-36); Mean Corpuscular Hgb 30.3 pg (27.0-32.0); Mean Corpuscular Volume 95.6 fL (81-99); Mean Platelet Vol. 9.7 fl (6.2-12.0); Monocyte# 0.37 X10^3/uL; Monocyte% 7.7 % (0-10); NRBC Flagged by Analyzer 0 % (0-5); Neutrophil # 3.11 X10^3/uL (2.7-7.7); Neutrophil % 65.1 % (47-70); Platelet Count 213 K/mm3 (150-450); RBC Distribution Width CV 15.4 % (11.6-14.6); RBC Distribution Width SD 53.1 fl (35.1-43.9); Red Blood Count 3.89 M/mm3 (4.2-5.4); White Blood Count 4.8 K/mm3 (4.4-11.0)
[2023-09-04 06:52] LABS: Bacteria 0 SEEN /hpf (None Seen); Mucous, Urine 0 SEEN /hpf (<or=2+); Red Blood Cells-Urine 0 SEEN /hpf (0-5); Squamous Epithelial Cells - UA 0 SEEN /hpf (5-10)
[2023-09-04 06:54] LABS: Color, Urine Yellow (Yellow); Glucose, Dipstick Normal (Normal); Ketone-Dipstick Negative (Negative); Leukocyte Esterase-Dipstick 25 /ul (Negative); Nitrite-Dipstick Negative (Negative); Occult Blood-Urine Negative /ul (Negative); Protein-Dipstick Negative (Negative); Specific Gravity, Urine 1.025 (1.002-1.030); Urine Bilirubin Dipstick Negative (Negative); Urine Clarity Clear (Clear); Urine Urobilinogen Normal (Normal)
[2023-09-04 07:13] LABS: White Blood Cells 0-5 SEEN /hpf (0-5)
[2023-09-04 07:19] LABS: ALB/GLOB Ratio 0.3 RATIO (0.9-2.4); AST(SGOT) 47 U/L (15-37); Alanine Aminotransfer ALT/SGPT 55 U/L (13-56); Albumin, Serum 1.1 g/dL (3.2-5.0); Alkaline Phosphatase 202 U/L (45-117); Anion Gap 6 (5-15); BUN 13 mg/dL (7-18); BUN/Creat Ratio 25.7 RATIO (10-20); Calcium,Total 7.4 mg/dL (8.5-10.1); Chloride 117 mmol/L (98-107); Creatinine, Serum 0.51 mg/dL (0.55-1.02); EST Glomerular Filtration Rate 127 mL/min (>60); Est Glom Filt Rate - Afr Amer 154 mL/min (>60); Globulin 3.4 g/dL (2.2-4.2); Glucose 97 mg/dL (74-106); Potassium 3.4 mmol/L (3.5-5.1); Protein, Total 4.5 g/dL (6.4-8.2); Sodium Level 142 mmol/L (136-145)
--- NOTE | 2023-09-04 09:30 | CT_ITS ---
CTA angiogram of the abdomen Clinical history: Liver protocol for multiple masses seen US 08/24 Technique: Multiple helical CT images were obtained from the domes the diaphragms to level of iliac crests after intravenous administration of iodinated contrast with transaxial, coronal and sagittal multiplanar reconstructions. This CT exam has been performed using low dose vendor recommended protocols to limit radiation exposure to As Low As Reasonably Achievable. RADIATION DOSAGE (If Supplied By Facility): CTDIvol = ( 12.94 ) mGy, DLP = ( 1281.01 ) mGycm COMPARISON: Abdominal ultrasound of 08/24/[address] of the chest abdomen pelvis of 10/03/2021. FINDINGS: The visualized lower lungs demonstrate mild atelectatic changes. Small bilateral pleural effusions partially visualized on this exam.. Hepatic steatosis. 2.7 cm hypodense lesion in the posterior segment of the right lobe of the liver demonstrates peripheral enhancement on the delayed images. Smaller lesions in the right lobe not clearly visualized on the delayed images. Hypodense lesion in the left lobe of the liver appears hyperdense on the delayed images most consistent with hemangioma. These lesions have not significantly changed in size since the previous examination. Contracted gallbladder without evidence of gallstones. Unremarkable pancreas. Normal renal size.. 3 cm right renal cyst appears to be simple and unchanged for which no further follow-up exam is needed. No evidence of hydronephrosis. Postoperative changes in the stomach. Significant motion artifacts limiting the examination. No evidence of bowel obstruction. Nonspecific fluid-filled small bowel loops. The appendix is not identified. Stable osseous structures. Decreased height of L3 and L4 vertebrae.. CT/CTA Abdomen W/WO Contrast IMPRESSION: 1. Multiple liver lesions as described above unchanged in size since previous exam likely due to hemangiomas. 2. Hepatic steatosis. 3. Nonspecific fluid-filled small bowel loops without evidence of bowel obstruction. 4. Small bilateral pleural effusions and compressive atelectatic changes in both lower lungs. 5. Small hiatal hernia. 6. Postoperative changes in the stomach. Electronically Signed: Ezra Campos MD at 12:42 EST ,
--- NOTE | 2023-09-04 09:31 | PCM.PN.HOSP ---
Subjective Subjective Doing well, but confused. No dizziness and pressures are still low Objective Data Objective Data Vital Signs: Vital Signs Temp Pulse Resp BP Pulse Ox O2 Del Method 98.3 F 105 H 17 93/57 L 96 Room Air 09/04/23 05:00 09/04/23 05:00 09/04/23 05:00 09/04/23 05:00 09/04/23 05:00 09/04/23 05:00 Oxygen Delivery Method Room Air Weight: 111 lb 12.39 oz Body Mass Index (BMI) 24.2 Intake & Output: Intake and Output for Last 24 Hours 09/03/23 09/04/23 09/05/23 03:59 03:59 03:59 Intake Total 2866.67 / 2866.67 2786.67 / 2786.67 1000 / 1000 Output Total 1150 / 1150 1400 / 1400 125 / 125 Balance 1716.67 / 1716.67 1386.67 / 1386.67 875 / 875 Lab / Micro Data 09/04/23 05:45 09/04/23 05:45 Labs: Laboratory Results - last 24 hr 09/03/23 18:10: AST 49 H, ALT 56 09/04/23 05:45: WBC 4.8, RBC 3.89 L, Hgb 11.8 L, Hct 37.2, MCV 95.6, MCH 30.3, MCHC 31.7 L, RDW Std Deviation 53.1 H, RDW Coeff of Emily 15.4 H, Plt Count 213, MPV 9.7, Immature Gran % (Auto) 0.200, Neut % (Auto) 65.1, Lymph % (Auto) 25.1, [place] % (Auto) 7.7, Eos % (Auto) 1.3, Baso % (Auto) 0.6, Absolute Neuts (auto) 3.1, Absolute Lymphs (auto) 1.20, Nucleated RBC % 0, Sodium 142, Potassium 3.4 L, Chloride 117 H, Carbon Dioxide 19.0 L, Anion Gap 6, BUN 13, Creatinine 0.51 L, Estim Creat Clear Calc 40.70, Est GFR (MDRD) Af Amer 154, Est GFR (MDRD) Non-Af 127, BUN/Creatinine Ratio 25.7 H, Glucose 97, Calcium 7.4 L, Total Bilirubin 0.50, AST 47 H, ALT 55, Alkaline Phosphatase 202 H, Total Protein 4.5 L, Albumin 1.1 L, Globulin 3.4, Albumin/Globulin Ratio 0.3 L 09/04/23 06:30: Urine Color Yellow, Urine Clarity Clear, Urine pH 6.0, Ur Specific [place] 1.025, Urine Protein Negative, Urine Glucose (UA) Normal, Urine Ketones Negative, Urine Occult Blood Negative, Urine Nitrite Negative, Urine Bilirubin Negative, Urine Urobilinogen Normal, Ur Leukocyte Esterase 25 H, Urine RBC 0 SEEN, Urine WBC 0-5 SEEN, Ur Squamous Epith Cells 0 SEEN, Urine Bacteria 0 SEEN, Urine Mucus 0 SEEN Physical Exam Narrative General: Alert, Oriented x2, Cooperative, No apparent distress HEENT: Atraumatic, PERRLA, EOMI, Normocephalic Oral: Moist Mucosa Neck: Supple, No JVD Lungs: Diminished, Normal air movement, No rhonchi, No wheeze, No rales Cardiovascular: Regular rate, Regular Rhythm, Normal S1, Normal S2, No murmurs Abdomen: Soft, Non Tender, Non-Distended, No Hepato-splenomegaly Extremities: Trace edema, Capillary Refill Less than 3 Seconds Skin: No rashes, No breakdown Musculoskeletal: No Tenderness to Palpation of Joints or Extremities Neurological: Cranial nerves II-XII grossly intact, Motor Exam 5/5 strength throughout, Sensory exam intact to light touch and pain Psych/Mental Status: Normal Affect, Appropriate Assessment & Plan Assessment/Plan (1) Atrial fibrillation with RVR: PLAN: Plan 1. A-fib with RVR/HTN/HLD ? She is currently hypotensive so hold her lisinopril and Lasix, it is unclear as to what her etiology is for her hypotension whether it was accidental overdose on medications versus dehydration or some other source. She was given IV fluids in the ER ? Will consult cardiology, will start her on digoxin this morning ? Echo on 08/09/2023 with an EF of 50% and a PASP of 28 mmHg ? We will continue with her home Eliquis 2. Hypothyroidism ? Stable/continue with Synthroid 3. Dementia/anxiety/depression ? Stable ? Continue with her home medications 4. Elevated LFTs ? She has had elevated LFTs in the past and had an ultrasound of her right upper quadrant done on 08/24/2023 that shows multiple areas of concern for possible metastasis ? We will proceed with a CT of her abdomen and pelvis hopefully with liver protocol to get a better characterization of these liver lesions. My concern is that she has had a significant weight loss that is likely unintentional but she does not remember having an ultrasound a week ago so we will proceed with workup as this may help explain her hypotension. DVT: Eliquis Charges/Coding Visit Charges Inpatient E&M: 39402 Subs Hosp L2
[2023-09-04 11:00] VITALS: BP 112/64; PULSE 99; RESP 18; TEMP 36.7; O2SAT 100
[2023-09-04 11:07] VITALS: PULSE 95
[2023-09-04] MEDS: APIXABAN 5 MG TABLET PO ×2 (11:07→21:45)
[2023-09-04] MEDS: Ferrous Sulfate 325 MG Tablet PO (11:07)
[2023-09-04] MEDS: Digoxin 125 MCG Tablet PO (11:07)
[2023-09-04] MEDS: Citalopram 10 MG Tablet PO (11:07)
[2023-09-04 17:19] VITALS: BP 95/63; PULSE 95; RESP 17; TEMP 36.7; O2SAT 95
[2023-09-04] MEDS: Donepezil HCl 10 MG Tablet PO (21:45)
[2023-09-04 23:15] VITALS: BP 101/62; PULSE 100; RESP 19; TEMP 36.8; O2SAT 96
[2023-09-05] MEDS: 0.9% Normal Saline (1000mL) 1,000 ML 100 ML IV (01:49)
[2023-09-05] MEDS: Levothyroxine 150 MCG Tablet PO (05:11)
[2023-09-05] MEDS: Menthol/Lanolin/Calamine/Znox 113 GM Tube 1 APPLIC TOPICAL (05:11)
[2023-09-05 05:15] VITALS: BP 98/63; PULSE 89; RESP 16; TEMP 36.7; O2SAT 97
[2023-09-05 06:02] LABS: Absolute Lymphocyte Count 1.37 X10^3/uL (0.83-4.51); Absolute Neutrophil Count 2.9 X10^3/uL (2.0-7.7); Basophil# 0.04 X10^3/uL; Basophil% 0.8 % (0-1); Eosinophil# 0.11 X10^3/uL; Eosinophils% 2.3 % (0-5); Hematocrit 33.2 % (37-47); Hemoglobin 10.4 g/dL (12.0-15.0); Lymphocyte # 1.37 X10^3/ul (0.83-4.51); Lymphocyte % 28.7 % (19-41); Mean Corp Hgb Conc 31.3 g/dL (32-36); Mean Corpuscular Hgb 30.1 pg (27.0-32.0); Mean Platelet Vol. 10.1 fl (6.2-12.0); Monocyte# 0.37 X10^3/uL; Monocyte% 7.8 % (0-10); NRBC Flagged by Analyzer 0 % (0-5); Neutrophil # 2.86 X10^3/uL (2.7-7.7); Platelet Count 256 K/mm3 (150-450); RBC Distribution Width CV 15.9 % (11.6-14.6); RBC Distribution Width SD 54.9 fl (35.1-43.9); Red Blood Count 3.46 M/mm3 (4.2-5.4); White Blood Count 4.8 K/mm3 (4.4-11.0)
[2023-09-05 06:28] LABS: ALB/GLOB Ratio 0.5 RATIO (0.9-2.4); AST(SGOT) 43 U/L (15-37); Alanine Aminotransfer ALT/SGPT 49 U/L (13-56); Albumin, Serum 1.3 g/dL (3.2-5.0); Alkaline Phosphatase 185 U/L (45-117); Anion Gap 2 (5-15); BUN 10 mg/dL (7-18); BUN/Creat Ratio 32.7 RATIO (10-20); Calcium,Total 7.1 mg/dL (8.5-10.1); Chloride 117 mmol/L (98-107); Creatinine, Serum 0.31 mg/dL (0.55-1.02); EST Glomerular Filtration Rate 227 mL/min (>60); Est Glom Filt Rate - Afr Amer 274 mL/min (>60); Globulin 2.7 g/dL (2.2-4.2); Glucose 78 mg/dL (74-106); Potassium 3.1 mmol/L (3.5-5.1); Sodium Level 144 mmol/L (136-145)
[2023-09-05 07:36] LABS: Phosphorus 2.3 mg/dL (2.5-4.9)
[2023-09-05 07:38] VITALS: BP 83/59; PULSE 95
[2023-09-05] MEDS: Citalopram 10 MG Tablet PO (07:38)
[2023-09-05] MEDS: Ferrous Sulfate 325 MG Tablet PO (07:38)
[2023-09-05] MEDS: Digoxin 125 MCG Tablet PO (07:38)
[2023-09-05] MEDS: APIXABAN 5 MG TABLET PO (07:39)
[2023-09-05 08:15] VITALS: O2SAT 95
--- NOTE | 2023-09-05 09:11 | PN.CARD_ITS ---
<Statement entered by Jose Guevara MD - 09/05/23 15:20> Pt seen & evaluated w/[facility]. I personally interviewed & exam the pt. I was involved in all aspects of pt's orders, interpretation of results & treatment Subjective Subjective Pt seen and examined today. Denies any cardiac complaints. Objective Data Vital Signs: Vital Signs Temp Pulse Resp BP Pulse Ox O2 Del Method 98.1 F 95 16 83/59 L 97 Room Air 09/05/23 05:15 09/05/23 07:38 09/05/23 05:15 09/05/23 07:38 09/05/23 05:15 09/05/23 05:15 Oxygen Delivery Method Room Air Weight: 111 lb 12.39 oz Body Mass Index (BMI) 24.2 Intake & Output: Intake and Output for Last 24 Hours 09/03/23 09/04/23 09/05/23 23:59 23:59 23:59 Intake Total 2786.67 / 2786.67 1999 / 1999 1081.67 / 1081.67 Output Total 1800 / 1800 125 / 525 400 / 400 Balance 986.67 / 986.67 1875 / 1475 681.67 / 681.67 Lab / Micro Data 09/05/23 05:00 09/05/23 05:00 Labs: Laboratory Results - last 24 hr 09/05/23 05:00: WBC 4.8, RBC 3.46 L, Hgb 10.4 L, Hct 33.2 L, MCV 96.0, MCH 30.1, MCHC 31.3 L, RDW Std Deviation 54.9 H, RDW Coeff of Emily 15.9 H, Plt Count 256, MPV 10.1, Immature Gran % (Auto) 0.400, Neut % (Auto) 60.0, Lymph % (Auto) 28.7, [place]itchie % (Auto) 7.8, Eos % (Auto) 2.3, Baso % (Auto) 0.8, Absolute Neuts (auto) 2.9, Absolute Lymphs (auto) 1.37, Nucleated RBC % 0, Sodium 144, Potassium 3.1 L , Chloride 117 H, Carbon Dioxide 25.0, Anion Gap 2 L, BUN 10, Creatinine 0.31 L, Estim Creat Clear Calc 40.70, Est GFR (MDRD) Af Amer 274, Est GFR (MDRD) Non-Af 227, BUN/Creatinine Ratio 32.7 H, Glucose 78, Calcium 7.1 L, Phosphorus 2.3 L, Magnesium 2.0, Total Bilirubin 0.50, AST 43 H, ALT 49, Alkaline Phosphatase 185 H, Total Protein 4.0 L, Albumin 1.3 L, Globulin 2.7, Albumin/Globulin Ratio 0.5 L Cardiology Labs/Tests 09/05/23 05:00: WBC 4.8, RBC 3.46 L, Hgb 10.4 L, Hct 33.2 L, MCV 96.0, MCH 30.1, MCHC 31.3 L, Plt Count 256, MPV 10.1, Immature Gran % (Auto) 0.400, Neut % (Auto) 60.0, Lymph % (Auto) 28.7, [place]itchie % (Auto) 7.8, Eos % (Auto) 2.3, Baso % (Auto) 0.8, Absolute Neuts (auto) 2.9, Nucleated RBC % 0, Sodium 144, Potassium 3.1 L, Chloride 117 H, Carbon Dioxide 25.0, Anion Gap 2 L, BUN 10, Creatinine 0.31 L, Est GFR (MDRD) Af Amer 274, Est GFR (MDRD) Non-Af 227, BUN/Creatinine Ratio 32.7 H, Glucose 78, Calcium 7.1 L, Phosphorus 2.3 L, Magnesium 2.0, Total Bilirubin 0.50 Rhythm: Afib Radiography Diagnostic Testing: Radiology Impression Abdomen CTA 09/04/23 09:30 IMPRESSION: 1. Multiple liver lesions as described above unchanged in size since previous exam likely due to hemangiomas. 2. Hepatic steatosis. 3. Nonspecific fluid-filled small bowel loops without evidence of bowel obstruction. 4. Small bilateral pleural effusions and compressive atelectatic changes in both lower lungs. 5. Small hiatal hernia. 6. Postoperative changes in the stomach. Electronically Signed: Ezra Campos MD at 12:42 EST , Physical Exam Narrative General: Alert, Oriented x2, Cooperative, No apparent distress HEENT: Atraumatic, PERRLA, EOMI, Normocephalic Oral: Moist Mucosa Neck: Supple, No JVD Lungs: Diminished, Normal air movement, No rhonchi, No wheeze, No rales Cardiovascular: Irregularly irregular. Tachycardic. Abdomen: Soft, Non Tender, Non-Distended, No Hepato-splenomegaly Extremities: Trace edema, Capillary Refill Less than 3 Seconds Skin: No rashes, No breakdown Musculoskeletal: No Tenderness to Palpation of Joints or Extremities Neurological: Cranial nerves II-XII grossly intact, Psych/Mental Status: Normal Affect, Appropriate Assessment & Plan Assessment/Plan (1) (HFpEF) heart failure with preserved ejection fraction: (2) Hypotension: (3) Atrial fibrillation with RVR: PLAN: * It has been difficult to control patient's heart rate with her low blood pressure readings. Patient was started on digoxin. She appears to be tolerating this. she is anticoagulated with Eliquis. * She recently had echocardiogram done on outpatient basis. EF was preserved. Stress test done on an outpatient basis was negative. Charges/Coding Visit Charges Inpatient E&M: 61600 Subs Hosp L2
[2023-09-05 11:15] VITALS: BP 94/62; PULSE 91; RESP 18; TEMP 36.7; O2SAT 98
[2023-09-05] MEDS: Potassium Phosphate 21 MMOL in 0.9% Normal Saline (250mL Bag) 250 ML 84 MMOL IV (11:19)
[2023-09-05] MEDS: Potassium Chloride Oral Tablet 20 MEQ 40 MEQ PO (11:19)
--- NOTE | 2023-09-05 12:40 | DCINST_ITS ---
Discharge Instructions Diet Discharge Diet: No restrictions Activity Discharge Activity: Return to Normal Activity Dressing / Incision Call your doctor if you observe: Fever of 101 or Higher, Shortness of breath, Dizziness, Fainting spells, Swelling in the ankles, Chest pain and Increased palpitations (irregular heartbeat) Follow Up Care Test Results: Test results from this visit will be discussed in further detail at your follow- up appointment, if applicable. Discharge Plan Admission Admit Date/Time: 09/01/23 16:44 Attending Provider: Karl Tavarez Primary Care Provider: Justyna Santos Consulting Providers: Cesar Saleem; Jose Guevara Instructions Additional Instructions / Restrictions: I recommend that you follow-up with a facilities maintenance technician/dietitian as an outpatient to increase your caloric intake Discharge Orders/Prescriptions Prescriptions: New digoxin 125 mcg (0.125 mg) Tablet 125 mcg PO DAILY 30 Days Qty: 30 0RF Continued calcitriol 0.25 mcg capsule 0.25 mcg PO BID donepezil 10 mg tablet 10 mg PO DAILY Patient Comments: TAKE 1 TABLET BY MOUTH EVERY MORNING citalopram 10 mg tablet 10 mg PO DAILY multivitamin with folic acid 1 TABLET tablet 1 tab PO DAILY Patient Comments: supplement calcium carbonate 600 mg calcium (1,500 mg) tablet 1,200 mg PO DAILY Patient Comments: IN AM, supplement ferrous sulfate [iron] 325 mg (65 mg iron) Tablet 65 mg PO DAILY zinc gluconate 50 mg tablet 50 mg PO DAILY cholecalciferol (vitamin D3) 25 mcg (1,000 unit) capsule 25 mcg PO DAILY docusate sodium 50 mg capsule 50 mg PO PRN arginine (L-arginine) 500 mg tablet 500 mg PO DAILY Rx Instructions: administer after a meal levothyroxine [Synthroid] 150 mcg tablet 150 mcg PO DAILY Patient Comments: TAKE 1 TABLET BY MOUTH DAILY potassium chloride 20 mEq tablet extended release 20 meq PO BID Eliquis 5 mg tablet 5 mg PO BID Qty: 60 11RF Discontinued furosemide 20 mg tablet 20 mg PO DAILY metoprolol succinate 50 mg tablet extended release 24 hr 25 mg PO QDAY lisinopril 20 mg tablet 10 mg PO QHS metoprolol succinate 25 mg tablet extended release 24 hr 25 mg PO BID Referrals / Follow Up: Justyna Santos MD [Primary Care Provider] - Within 1 Week Sarah Neff PA [Med Staff - Adv Practice Prof] - Within 3 Months Disposition Disposition (needs filled in before D/C Order can be placed): Home, Self Care
--- NOTE | 2023-09-05 12:44 | PCM.DC.SUM ---
Providers Date of Admission: 09/01/23 Primary Care Physician: Dr. Justyna Santos MD Consultations 09/02/23 14:44 Consult: Cardiology Routine Consulting Provider: Jose Guevara Reason for Consult: Afib with low pressures EMERGENT Consult: No MD Notified: Yes Date Notified: 09/02/23 Time Notified: 14:44 Method of Notification: Verbal Reason For Visit: AFIB Diagnosis Discharge Diagnosis (1) (HFpEF) heart failure with preserved ejection fraction: Status: Chronic Code(s): I50.30 - Unspecified diastolic (congestive) heart failure (2) Hypotension: Status: Acute Code(s): I95.9 - Hypotension, unspecified (3) Atrial fibrillation with RVR: Status: Acute Code(s): I48.91 - Unspecified atrial fibrillation Medications at Discharge Home Medications multivitamin with folic acid 400 mcg tablet 1 tab PO DAILY 05/16/14 calcitriol 0.25 mcg capsule 0.25 mcg PO BID 10/10/17 apixaban 5 mg tablet (Eliquis) 5 mg PO BID #60 tabs 08/31/21 calcium carbonate 600 mg calcium (1,500 mg) tablet 1,200 mg PO DAILY 05/11/22 citalopram 10 mg tablet 10 mg PO DAILY 05/11/22 donepezil 10 mg tablet 10 mg PO DAILY 05/11/22 ferrous sulfate 325 mg (65 mg iron) tablet (iron) 65 mg PO DAILY 01/19/23 arginine (L-arginine) 500 mg tablet 500 mg PO DAILY 03/31/23 cholecalciferol (vitamin D3) 25 mcg (1,000 unit) capsule 25 mcg PO DAILY 03/31/23 docusate sodium 50 mg capsule 50 mg PO PRN 03/31/23 zinc gluconate 50 mg tablet 50 mg PO DAILY 03/31/23 levothyroxine 150 mcg tablet (Synthroid) 150 mcg PO DAILY 04/06/23 potassium chloride 20 mEq tablet,extended release 20 meq PO BID 09/01/23 digoxin 125 mcg (0.125 mg) tablet 125 mcg PO DAILY 30 days #30 tabs 09/05/23 Hospital Course Operations None Procedures None Summary of Care Provided Minutes Spent on Discharge: 36 Hospital Course: Per HPI: Hospital course: 1. A-fib with RVR/HTN/HLD ? She is currently hypotensive so hold her lisinopril and Lasix, it is unclear as to what her etiology is for her hypotension whether it was accidental overdose on medications versus dehydration or some other source. She was given IV fluids in the ER ? Will consult cardiology, will start her on digoxin this morning ? Echo on 08/09/2023 with an EF of 50% and a PASP of 28 mmHg ? We will continue with her home Johnis 09/05/2023: Her hypotension is never been symptomatic while she has been here and there has been some consistent improvement with the discontinuation of all of her blood pressure medications including lisinopril, Lasix, metoprolol and transitioning her simply to digoxin. Her heart rate is controlled with the digoxin and I appreciate cardiology's assistance. I do recommend that she follow-up with cardiology as an outpatient I also recommend she follow-up with her PCP in 3 to 5 days to monitor her blood work as an outpatient as well. Of note I do believe that part of this issue is her significant hypoalbuminemia due to poor nutritional status it appears that she is lost quite a few pounds over the last couple of months. She did have some elevated LFT's and as an outpatient was noted to have some lesions on an ultrasound of her right upper quadrant so a CT scan was obtained which demonstrated multiple hemangiomas so does not appear that she has abdominal cancer, and chest x-ray on admission was unremarkable for any lesions or masses in her chest cavity. I discussed with the the need to increase caloric intake as an outpatient. I discussed with her and her the plan for discharge today they both expressed understanding of the risk benefits going home and are okay with going home today. 2. Hypothyroidism ? Stable/continue with Synthroid 3. Dementia/anxiety/depression ? Stable ? Continue with her home medications 4. Elevated LFTs ? She has had elevated LFTs in the past and had an ultrasound of her right upper quadrant done on 08/24/2023 that shows multiple areas of concern for possible metastasis ? LFTs are stable, and CT scan demonstrated multiple liver hemangiomas recommend outpatient monitoring Physical Exam Narrative General: Alert, Oriented x3, Cooperative, No apparent distress HEENT: Atraumatic, PERRLA, EOMI, Normocephalic Oral: Moist Mucosa Neck: Supple, No JVD Lungs: Diminished, Normal air movement, No rhonchi, No wheeze, No rales Cardiovascular: Regular rate, Regular Rhythm, Normal S1, Normal S2, No murmurs Abdomen: Soft, Non Tender, Non-Distended, No Hepato-splenomegaly Extremities: Trace edema, Capillary Refill Less than 3 Seconds Skin: No rashes, No breakdown Musculoskeletal: No Tenderness to Palpation of Joints or Extremities Neurological: Cranial nerves II-XII grossly intact, Motor Exam 5/5 strength throughout, Sensory exam intact to light touch and pain Psych/Mental Status: Normal Affect, Appropriate Weight / BMI Weight Weight: 111 lb 12.39 oz Body Mass Index (BMI) 24.2 ABG / Lab / Microbiology Data 09/05/23 05:00 09/05/23 05:00 Laboratory: Laboratory Results - last 24 hr 09/05/23 05:00: WBC 4.8, RBC 3.46 L, Hgb 10.4 L, Hct 33.2 L, MCV 96.0, MCH 30.1, MCHC 31.3 L, RDW Std Deviation 54.9 H, RDW Coeff of Emily 15.9 H, Plt Count 256, MPV 10.1, Immature Gran % (Auto) 0.400, Neut % (Auto) 60.0, Lymph % (Auto) 28.7, [place] % (Auto) 7.8, Eos % (Auto) 2.3, Baso % (Auto) 0.8, Absolute Neuts (auto) 2.9, Absolute Lymphs (auto) 1.37, Nucleated RBC % 0, Sodium 144, Potassium 3.1 L, Chloride 117 H, Carbon Dioxide 25.0, Anion Gap 2 L, BUN 10, Creatinine 0.31 L, Estim Creat Clear Calc 40.70, Est GFR (MDRD) Af Amer 274, Est GFR (MDRD) Non-Af 227, BUN/Creatinine Ratio 32.7 H, Glucose 78, Calcium 7.1 L, Phosphorus 2.3 L, Magnesium 2.0, Total Bilirubin 0.50, AST 43 H, ALT 49, Alkaline Phosphatase 185 H, Total Protein 4.0 L, Albumin 1.3 L, Globulin 2.7, Albumin/Globulin Ratio 0.5 L D/C Instructions Discharge Diet: No restrictions Call your doctor if you observe: Fever of 101 or Higher, Shortness of breath, Dizziness, Fainting spells, Swelling in the ankles, Chest pain and Increased palpitations (irregular heartbeat) Meaningful Use Info Meaningful Use Diagnoses (Choose all that apply): None applicable Discharge Plan Admission Admit Date/Time: 09/01/23 16:44 Attending Provider: Karl Tavarez Primary Care Provider: Justyna Santos Consulting Providers: Cesar Saleem; Jose Guevara Instructions Additional Instructions / Restrictions: I recommend that you follow-up with a furniture upholsterer apprentice/dietitian as an outpatient to increase your caloric intake Discharge Orders/Prescriptions Prescriptions: New digoxin 125 mcg (0.125 mg) Tablet 125 mcg PO DAILY 30 Days Qty: 30 0RF Continued calcitriol 0.25 mcg capsule 0.25 mcg PO BID donepezil 10 mg tablet 10 mg PO DAILY Patient Comments: TAKE 1 TABLET BY MOUTH EVERY MORNING citalopram 10 mg tablet 10 mg PO DAILY multivitamin with folic acid 1 TABLET tablet 1 tab PO DAILY Patient Comments: supplement calcium carbonate 600 mg calcium (1,500 mg) tablet 1,200 mg PO DAILY Patient Comments: IN AM, supplement ferrous sulfate [iron] 325 mg (65 mg iron) Tablet 65 mg PO DAILY zinc gluconate 50 mg tablet 50 mg PO DAILY cholecalciferol (vitamin D3) 25 mcg (1,000 unit) capsule 25 mcg PO DAILY docusate sodium 50 mg capsule 50 mg PO PRN arginine (L-arginine) 500 mg tablet 500 mg PO DAILY Rx Instructions: administer after a meal levothyroxine [Synthroid] 150 mcg tablet 150 mcg PO DAILY Patient Comments: TAKE 1 TABLET BY MOUTH DAILY potassium chloride 20 mEq tablet extended release 20 meq PO BID Eliquis 5 mg tablet 5 mg PO BID Qty: 60 11RF Discontinued furosemide 20 mg tablet 20 mg PO DAILY metoprolol succinate 50 mg tablet extended release 24 hr 25 mg PO QDAY lisinopril 20 mg tablet 10 mg PO QHS metoprolol succinate 25 mg tablet extended release 24 hr 25 mg PO BID Referrals / Follow Up: Justyna Santos MD [Primary Care Provider] - Within 1 Week Sarah Neff PA [Med Staff - Adv Practice Prof] - Within 3 Months Disposition Disposition (needs filled in before D/C Order can be placed): Home, Self Care Charges/Coding Visit Charges Inpatient E&M: 65121 Disch Hosp >30min
--- NOTE | 2023-09-05 14:19 | CASEMGMT ---
HESHAM LOPEZ NOTE: Pt being discharged. HESHAM LOPEZ to room earlier to speak w/pt. Pt sitting up in chair in room. and dtr @ bedside. Discussed discharge planning, including HHC. Questions answered. Pt and family would like pt to discharge home w/[facility] and decline wanting list of other options, unless [facility] unable to accept. Referral made to [facility] and they are able to accept w/SOC slated for . Pt and family made aware. Tommy @ [facility] made aware pt [facility]. CCN to resume once [facility] discharges pt. Pt and family made aware of this as well. Pt and family deny having other discharge planning needs/concerns. Italia MARIA RN, CM
== END 2023-09-05 15:36 | disposition home health service (06) | DRG 309 ==
LOC: ED 16:24 → PCU 16:34
PROVIDERS: Admitting Provider Internal Medicine; Emergency Provider Emergency Medicine; PCP Internal Medicine; Visit Provider Family Medicine
DX: I48.11 Longstanding persistent atrial fibrillation (principal); I50.32 Chronic diastolic (congestive) heart failure; D68.69 Other thrombophilia; F03.90 Unspecified dementia, unspecified severity, without behavioral disturbance, psychotic disturbance, mood disturbance, and anxiety; I49.5 Sick sinus syndrome; I95.9 Hypotension, unspecified; I11.0 Hypertensive heart disease with heart failure; E03.9 Hypothyroidism, unspecified; F32.A Depression, unspecified; E78.5 Hyperlipidemia, unspecified; F41.9 Anxiety disorder, unspecified; D18.03 Hemangioma of intra-abdominal structures; R29.6 Repeated falls; Z79.01 Long term (current) use of anticoagulants; Z79.899 Other long term (current) drug therapy; Z86.73 Personal history of transient ischemic attack (TIA), and cerebral infarction without residual deficits; Z87.891 Personal history of nicotine dependence; Z82.49 Family history of ischemic heart disease and other diseases of the circulatory system
CPT/HCPCS: 36415; 71045; 74175; 80048; 80053; 81001; 83735; 84100; 84450; 84460; 84484; 85025; 93005; 97162; 97166; 97802; 99284; J7030; J7040; J7050; Q9967; A4216

== ENCOUNTER → 2023-11-29 | Outpatient (REF) | payer MEDICARE, OTHER, SELFPAY ==
[2023-11-29 08:10] LABS: Absolute Lymphocyte Count 1.46 X10^3/uL (0.83-4.51); Absolute Neutrophil Count 2.7 X10^3/uL (2.0-7.7); Basophil# 0.03 X10^3/uL; Basophil% 0.6 % (0-1); Eosinophil# 0.16 X10^3/uL; Eosinophils% 3.3 % (0-5); Hematocrit 37.6 % (37-47); Hemoglobin 11.4 g/dL (12.0-15.0); Lymphocyte # 1.46 X10^3/ul (0.83-4.51); Lymphocyte % 29.8 % (19-41); Mean Corp Hgb Conc 30.3 g/dL (32-36); Mean Corpuscular Hgb 29.8 pg (27.0-32.0); Mean Corpuscular Volume 98.4 fL (81-99); Mean Platelet Vol. 10.2 fl (6.2-12.0); Monocyte# 0.53 X10^3/uL; Monocyte% 10.8 % (0-10); NRBC Flagged by Analyzer 0 % (0-5); Neutrophil # 2.71 X10^3/uL (2.7-7.7); Neutrophil % 55.3 % (47-70); Platelet Count 274 K/mm3 (150-450); RBC Distribution Width CV 12.6 % (11.6-14.6); RBC Distribution Width SD 45.1 fl (35.1-43.9); Red Blood Count 3.82 M/mm3 (4.2-5.4); White Blood Count 4.9 K/mm3 (4.4-11.0)
[2023-11-29 08:28] LABS: BNP,B-Type NATRIURETIC PEPTIDE 109.9 pg/mL (0-100)
[2023-11-29 08:39] LABS: Anion Gap 7 (5-15); BUN 18 mg/dL (7-18); BUN/Creat Ratio 41.4 RATIO (10-20); CRP < 2.90 mg/L (0.0-3.0); Calcium,Total 8.9 mg/dL (8.5-10.1); Chloride 109 mmol/L (98-107); Creatinine, Serum 0.44 mg/dL (0.55-1.02); EST Glomerular Filtration Rate 151 mL/min (>60); Est Glom Filt Rate - Afr Amer 183 mL/min (>60); Glucose 112 mg/dL (74-106); Potassium 3.5 mmol/L (3.5-5.1); Sodium Level 141 mmol/L (136-145)
== END ==
LOC: OLS.SW 05:00
PROVIDERS: PCP Internal Medicine; Visit Provider Internal Medicine
DX: E87.70 Fluid overload, unspecified (principal); I50.9 Heart failure, unspecified
CPT/HCPCS: 36415; 80048; 83880; 85025; 86140

== ENCOUNTER → 2023-12-21 | Outpatient (REF) | payer MEDICARE, OTHER, SELFPAY ==
[2023-12-21 09:28] LABS: Anion Gap 4 (5-15); BUN 19 mg/dL (7-18); BUN/Creat Ratio 43.4 RATIO (10-20); Calcium,Total 9.1 mg/dL (8.5-10.1); Chloride 106 mmol/L (98-107); Creatinine, Serum 0.44 mg/dL (0.55-1.02); EST Glomerular Filtration Rate 150 mL/min (>60); Est Glom Filt Rate - Afr Amer 181 mL/min (>60); Glucose 105 mg/dL (74-106); Magnesium 2.1 mg/dL (1.6-2.6); Potassium 3.5 mmol/L (3.5-5.1); Sodium Level 140 mmol/L (136-145)
[2023-12-21 10:11] LABS: Digoxin Level 0.48 ng/mL (0.80-2.00)
== END ==
LOC: OLS.SW 05:00
PROVIDERS: PCP Internal Medicine; Visit Provider Internal Medicine
DX: I48.0 Paroxysmal atrial fibrillation (principal)
CPT/HCPCS: 36415; 80048; 80162; 83735

== ENCOUNTER → 2024-02-15 05:00 | Outpatient (REF) | payer MEDICARE, OTHER, MEDICAID, SELFPAY ==
[2024-02-15 09:10] LABS: Hemoglobin 12.3 g/dL (12.0-15.0); Mean Corp Hgb Conc 30.8 g/dL (32-36); Mean Corpuscular Hgb 28.7 pg (27.0-32.0); Mean Corpuscular Volume 93.2 fL (81-99); Mean Platelet Vol. 10.3 fl (6.2-12.0); Platelet Count 239 K/mm3 (150-450); RBC Distribution Width CV 13.6 % (11.6-14.6); RBC Distribution Width SD 46.3 fl (35.1-43.9); Red Blood Count 4.29 M/mm3 (4.2-5.4); White Blood Count 4.8 K/mm3 (4.4-11.0)
[2024-02-15 09:33] LABS: Anion Gap 4 (5-15); BUN 12 mg/dL (7-18); BUN/Creat Ratio 25.3 RATIO (10-20); Calcium,Total 9.1 mg/dL (8.5-10.1); Chloride 107 mmol/L (98-107); Creatinine, Serum 0.47 mg/dL (0.55-1.02); EST Glomerular Filtration Rate 137 mL/min (>60); Est Glom Filt Rate - Afr Amer 165 mL/min (>60); Glucose 95 mg/dL (74-106); Magnesium 2.3 mg/dL (1.6-2.6); Potassium 3.5 mmol/L (3.5-5.1); Sodium Level 140 mmol/L (136-145)
== END ==
LOC: OLS.SW 05:00
PROVIDERS: PCP Internal Medicine; Visit Provider Internal Medicine
DX: I10 Essential (primary) hypertension (principal); I48.0 Paroxysmal atrial fibrillation; E46 Unspecified protein-calorie malnutrition; I25.10 Atherosclerotic heart disease of native coronary artery without angina pectoris; E83.51 Hypocalcemia
CPT/HCPCS: 36415; 80048; 83735; 85027

== ENCOUNTER → 2024-06-12 | Outpatient (REF) | payer MEDICARE, OTHER, MEDICAID, SELFPAY ==
[2024-06-12 09:21] LABS: Absolute Lymphocyte Count 1.75 X10^3/uL (0.83-4.51); Absolute Neutrophil Count 2.4 X10^3/uL (2.0-7.7); Basophil# 0.03 X10^3/uL; Basophil% 0.6 % (0-1); Hematocrit 42.5 % (37-47); Hemoglobin 13.3 g/dL (12.0-15.0); Lymphocyte # 1.75 X10^3/ul (0.83-4.51); Lymphocyte % 35.4 % (19-41); Mean Corp Hgb Conc 31.3 g/dL (32-36); Mean Corpuscular Hgb 29.2 pg (27.0-32.0); Mean Corpuscular Volume 93.4 fL (81-99); Mean Platelet Vol. 10.7 fl (6.2-12.0); Monocyte# 0.55 X10^3/uL; Monocyte% 11.1 % (0-10); NRBC Flagged by Analyzer 0 % (0-5); Neutrophil % 48.7 % (47-70); Platelet Count 268 K/mm3 (150-450); RBC Distribution Width CV 13.1 % (11.6-14.6); RBC Distribution Width SD 44.7 fl (35.1-43.9); Red Blood Count 4.55 M/mm3 (4.2-5.4); White Blood Count 4.9 K/mm3 (4.4-11.0)
[2024-06-12 09:26] LABS: Anion Gap 6 (5-15); BUN 15 mg/dL (7-18); BUN/Creat Ratio 28.9 RATIO (10-20); Calcium,Total 9.6 mg/dL (8.5-10.1); Chloride 105 mmol/L (98-107); Creatinine, Serum 0.52 mg/dL (0.55-1.02); EST Glomerular Filtration Rate 123 mL/min (>60); Est Glom Filt Rate - Afr Amer 149 mL/min (>60); Glucose 96 mg/dL (74-106); Magnesium 2.2 mg/dL (1.6-2.6); Potassium 3.5 mmol/L (3.5-5.1); Sodium Level 141 mmol/L (136-145)
== END ==
LOC: OLS.SW 05:00
PROVIDERS: PCP Internal Medicine; Visit Provider Internal Medicine
DX: I10 Essential (primary) hypertension (principal); E78.5 Hyperlipidemia, unspecified; E87.6 Hypokalemia
CPT/HCPCS: 36415; 80048; 83735; 85025

== ENCOUNTER → 2024-06-17 | Outpatient (REF) | payer MEDICARE, OTHER, MEDICAID, SELFPAY ==
[2024-06-17 11:15] LABS: Anion Gap 6 (5-15); BUN 23 mg/dL (7-18); BUN/Creat Ratio 38.2 RATIO (10-20); Calcium,Total 9.9 mg/dL (8.5-10.1); Chloride 103 mmol/L (98-107); EST Glomerular Filtration Rate 104 mL/min (>60); Est Glom Filt Rate - Afr Amer 125 mL/min (>60); Glucose 134 mg/dL (74-106); Magnesium 2.6 mg/dL (1.6-2.6); Potassium 3.8 mmol/L (3.5-5.1); Sodium Level 139 mmol/L (136-145)
== END ==
LOC: OLS.SW 05:00
PROVIDERS: PCP Internal Medicine; Visit Provider Internal Medicine
DX: I48.91 Unspecified atrial fibrillation (principal); D64.9 Anemia, unspecified; F03.90 Unspecified dementia, unspecified severity, without behavioral disturbance, psychotic disturbance, mood disturbance, and anxiety; I10 Essential (primary) hypertension; E03.9 Hypothyroidism, unspecified; Z79.899 Other long term (current) drug therapy
CPT/HCPCS: 36415; 80048; 83735

== ENCOUNTER → 2024-06-24 | Outpatient (REF) | payer MEDICARE, OTHER, MEDICAID, SELFPAY ==
[2024-06-24 08:38] LABS: Anion Gap 6 (5-15); BUN 18 mg/dL (7-18); Calcium,Total 9.4 mg/dL (8.5-10.1); Chloride 104 mmol/L (98-107); Creatinine, Serum 0.43 mg/dL (0.55-1.02); EST Glomerular Filtration Rate 153 mL/min (>60); Est Glom Filt Rate - Afr Amer 185 mL/min (>60); Glucose 97 mg/dL (74-106); Magnesium 2.2 mg/dL (1.6-2.6); Potassium 4.1 mmol/L (3.5-5.1); Sodium Level 139 mmol/L (136-145)
== END ==
LOC: OLS.SW 05:00
PROVIDERS: PCP Internal Medicine; Visit Provider Internal Medicine
DX: Z79.899 Other long term (current) drug therapy (principal)
CPT/HCPCS: 36415; 80048; 83735

== ENCOUNTER → 2024-07-09 | Outpatient (REF) | payer MEDICARE, OTHER, MEDICAID, SELFPAY ==
[2024-07-09 09:11] LABS: Thyroid Stim Hormone (TSH) < 0.005 uIU/mL (0.358-3.740)
== END ==
LOC: OLS.SW 05:00
PROVIDERS: PCP Internal Medicine; Visit Provider Internal Medicine
DX: R53.83 Other fatigue (principal); Z79.899 Other long term (current) drug therapy
CPT/HCPCS: 36415; 84443

== ENCOUNTER → 2024-09-06 | Outpatient (REF) | payer MEDICARE, MEDICAID, SELFPAY ==
[2024-09-06 09:41] LABS: Thyroid Stim Hormone (TSH) 0.013 uIU/mL (0.358-3.740)
== END ==
LOC: OLS.SW 05:00
PROVIDERS: PCP Internal Medicine; Visit Provider Internal Medicine
DX: E03.9 Hypothyroidism, unspecified (principal)
CPT/HCPCS: 36415; 84443

== ENCOUNTER → 2024-09-23 | Outpatient (REF) | payer MEDICARE, MEDICAID, SELFPAY ==
[2024-09-23 09:08] LABS: Absolute Lymphocyte Count 1.98 X10^3/uL (0.83-4.51); Absolute Neutrophil Count 2.9 X10^3/uL (2.0-7.7); Basophil# 0.03 X10^3/uL; Basophil% 0.5 % (0-1); Eosinophil# 0.12 X10^3/uL; Eosinophils% 2.2 % (0-5); Hematocrit 43.3 % (37-47); Hemoglobin 13.8 g/dL (12.0-15.0); Lymphocyte # 1.98 X10^3/ul (0.83-4.51); Lymphocyte % 36.3 % (19-41); Mean Corp Hgb Conc 31.9 g/dL (32-36); Mean Corpuscular Hgb 29.7 pg (27.0-32.0); Mean Corpuscular Volume 93.3 fL (81-99); Mean Platelet Vol. 10.8 fl (6.2-12.0); Monocyte# 0.44 X10^3/uL; Monocyte% 8.1 % (0-10); NRBC Flagged by Analyzer 0 % (0-5); Neutrophil # 2.88 X10^3/uL (2.7-7.7); Neutrophil % 52.7 % (47-70); Platelet Count 270 K/mm3 (150-450); RBC Distribution Width CV 13.6 % (11.6-14.6); Red Blood Count 4.64 M/mm3 (4.2-5.4); White Blood Count 5.5 K/mm3 (4.4-11.0)
[2024-09-23 09:25] LABS: Anion Gap 6 (5-15); BUN 18 mg/dL (7-18); BUN/Creat Ratio 39.1 RATIO (10-20); Calcium,Total 9.3 mg/dL (8.5-10.1); Chloride 105 mmol/L (98-107); Creatinine, Serum 0.46 mg/dL (0.55-1.02); EST Glomerular Filtration Rate 141 mL/min (>60); Est Glom Filt Rate - Afr Amer 171 mL/min (>60); Glucose 97 mg/dL (74-106); Potassium 3.8 mmol/L (3.5-5.1); Sodium Level 139 mmol/L (136-145)
== END ==
LOC: OLS.SW 06:05
PROVIDERS: PCP Internal Medicine; Visit Provider Internal Medicine
DX: R53.83 Other fatigue (principal)
CPT/HCPCS: 36415; 80048; 85025

== ENCOUNTER → 2024-10-17 05:00 | Outpatient (REF) | payer MEDICARE, MEDICAID, SELFPAY ==
[2024-10-17 10:07] LABS: Digoxin Level 0.47 ng/mL (0.80-2.00)
== END ==
LOC: OLS.SW 05:00
PROVIDERS: PCP Internal Medicine; Visit Provider Internal Medicine
DX: Z51.81 Encounter for therapeutic drug level monitoring (principal); I48.0 Paroxysmal atrial fibrillation
CPT/HCPCS: 36415; 80162

== ENCOUNTER → 2024-10-25 05:00 | Outpatient (REF) | payer MEDICARE, MEDICAID, SELFPAY ==
[2024-10-25 09:02] LABS: Anion Gap 9 (5-15); BUN 24 mg/dL (7-18); BUN/Creat Ratio 45.1 RATIO (10-20); Calcium,Total 9.7 mg/dL (8.5-10.1); Chloride 101 mmol/L (98-107); Creatinine, Serum 0.53 mg/dL (0.55-1.02); EST Glomerular Filtration Rate 119 mL/min (>60); Est Glom Filt Rate - Afr Amer 145 mL/min (>60); Glucose 98 mg/dL (74-106); Magnesium 2.3 mg/dL (1.6-2.6); Potassium 3.5 mmol/L (3.5-5.1); Sodium Level 138 mmol/L (136-145)
== END ==
LOC: OLS.SW 05:00
PROVIDERS: PCP Internal Medicine; Visit Provider Internal Medicine
DX: I10 Essential (primary) hypertension (principal); E03.9 Hypothyroidism, unspecified
CPT/HCPCS: 36415; 80048; 83735

== ENCOUNTER → 2024-11-01 05:00 | Outpatient (REF) | payer MEDICARE, MEDICAID, SELFPAY ==
[2024-11-01 08:34] LABS: Thyroid Stim Hormone (TSH) 0.074 uIU/mL (0.358-3.740)
== END ==
LOC: OLS.SW 05:00
PROVIDERS: PCP Internal Medicine; Visit Provider Internal Medicine
DX: E03.9 Hypothyroidism, unspecified (principal)
CPT/HCPCS: 36415; 84443

== ENCOUNTER → 2025-01-22 05:00 | Outpatient (REF) | payer MEDICARE, MEDICAID, SELFPAY ==
[2025-01-22 10:04] LABS: AST(SGOT) 25 U/L (<=31); Alanine Aminotransfer ALT/SGPT 11 U/L (<=34); Alkaline Phosphatase 62 U/L (35-104); Bilirubin, Direct 0.13 mg/dL (0.00-0.30); Globulin 3.3 g/dL (2.2-4.2); Protein, Total 7.4 g/dL (5.9-8.4); Total Bilirubin 0.55 mg/dL (0.00-1.30)
== END ==
LOC: OLS.SW 05:00
PROVIDERS: PCP Internal Medicine; Visit Provider Internal Medicine
DX: I10 Essential (primary) hypertension (principal); E03.9 Hypothyroidism, unspecified
CPT/HCPCS: 36415; 80076

== ENCOUNTER → 2025-03-03 05:00 | Outpatient (REF) | payer MEDICARE, MEDICAID, SELFPAY ==
[2025-03-03 08:53] LABS: Hematocrit 41.3 % (37-47); Hemoglobin 13.5 g/dL (12.0-15.0); Mean Corp Hgb Conc 32.7 g/dL (32-36); Mean Corpuscular Hgb 30.5 pg (27.0-32.0); Mean Corpuscular Volume 93.4 fL (81-99); Mean Platelet Vol. 10.3 fl (6.2-12.0); Platelet Count 257 K/mm3 (150-450); RBC Distribution Width SD 44.7 fl (35.1-43.9); Red Blood Count 4.42 M/mm3 (4.2-5.4); White Blood Count 6.3 K/mm3 (4.4-11.0)
[2025-03-03 12:19] LABS: Anion Gap 16 (5-15); BUN 19 mg/dL (4-19); BUN/Creat Ratio 36.2 RATIO (10-20); Calcium,Total 9.8 mg/dL (7.6-11.0); Carbon Dioxide 25.2 mmol/L (21.0-32.0); Chloride 95 mmol/L (98-108); Creatinine, Serum 0.52 mg/dL (0.70-1.20); EST Glomerular Filtration Rate 98 (>60); Glucose 87 mg/dL (70-99); Magnesium 2.2 mg/dL (1.5-2.2); Potassium 4.5 mmol/L (3.3-5.1); Sodium Level 136 mmol/L (133-145)
[2025-03-03 12:20] LABS: Pro- Brain NATRIURETIC PEPTIDE 742 pg/mL (<=900)
== END ==
LOC: OLS.SW 05:00
PROVIDERS: PCP Internal Medicine; Visit Provider Internal Medicine
DX: I10 Essential (primary) hypertension (principal); E03.9 Hypothyroidism, unspecified; E87.6 Hypokalemia
CPT/HCPCS: 36415; 80048; 80162; 83735; 83880; 84443; 85027

== ENCOUNTER → 2025-03-18 | Outpatient (REF) | payer MEDICARE, MEDICAID, SELFPAY ==
[2025-03-18 09:21] LABS: Cholesterol 192 mg/dL (<=200); Low Density Lipoprotein Calc. 111 mg/dL; Triglycerides 70 mg/dL; Very Low Density Lipoprotein 14 mg/dL (5-40); cholesterol:hdl ratio screen 2.86
== END ==
LOC: OLS.SW 05:00
PROVIDERS: PCP Internal Medicine; Visit Provider Internal Medicine
DX: E78.5 Hyperlipidemia, unspecified (principal)
CPT/HCPCS: 36415; 80061

== ENCOUNTER → 2025-05-13 | Outpatient (REF) | payer MEDICARE, SELFPAY ==
[2025-05-13 10:07] LABS: Anion Gap 14 (5-15); BUN 21 mg/dL (4-19); BUN/Creat Ratio 34.0 RATIO (10-20); Calcium,Total 9.8 mg/dL (7.6-11.0); Carbon Dioxide 29.2 mmol/L (21.0-32.0); Chloride 95 mmol/L (98-108); Glucose 144 mg/dL (70-99); Magnesium 2.4 mg/dL (1.5-2.2); Potassium 3.8 mmol/L (3.3-5.1)
== END ==
LOC: OLS.SW 05:00
PROVIDERS: PCP Internal Medicine; Visit Provider Internal Medicine
DX: I48.0 Paroxysmal atrial fibrillation (principal); D64.9 Anemia, unspecified; E87.6 Hypokalemia
CPT/HCPCS: 36415; 80048; 83735

== ENCOUNTER → 2025-05-27 04:00 | Outpatient (REF) | payer MEDICARE, SELFPAY ==
[2025-05-27 08:32] LABS: Magnesium 2.6 mg/dL (1.5-2.2)
== END ==
LOC: OLS.SW 04:00
PROVIDERS: PCP Internal Medicine; Referring Provider Internal Medicine; Visit Provider Internal Medicine
DX: Z79.899 Other long term (current) drug therapy (principal); F03.90 Unspecified dementia, unspecified severity, without behavioral disturbance, psychotic disturbance, mood disturbance, and anxiety
CPT/HCPCS: 36415; 83735

== ENCOUNTER → 2025-06-03 | Outpatient (REF) | payer MEDICARE, MEDICAID, SELFPAY ==
[2025-06-03 08:36] LABS: Hematocrit 42.2 % (37-47); Hemoglobin 13.2 g/dL (12.0-15.0); Mean Corp Hgb Conc 31.3 g/dL (32-36); Mean Corpuscular Volume 93.0 fL (81-99); Mean Platelet Vol. 10.4 fl (6.2-12.0); Platelet Count 267 K/mm3 (150-450); RBC Distribution Width CV 14.5 % (11.6-14.6); RBC Distribution Width SD 48.8 fl (35.1-43.9); Red Blood Count 4.54 M/mm3 (4.2-5.4); White Blood Count 6.5 K/mm3 (4.4-11.0)
[2025-06-03 09:08] LABS: Anion Gap 13 (5-15); BUN 25 mg/dL (4-19); BUN/Creat Ratio 35.6 RATIO (10-20); Calcium,Total 9.2 mg/dL (7.6-11.0); Carbon Dioxide 26.3 mmol/L (21.0-32.0); Chloride 101 mmol/L (98-108); Glucose 106 mg/dL (70-99); Potassium 4.0 mmol/L (3.3-5.1)
== END ==
LOC: OLS.SW 05:00
PROVIDERS: PCP Internal Medicine; Visit Provider Internal Medicine
DX: I48.0 Paroxysmal atrial fibrillation (principal); I10 Essential (primary) hypertension
CPT/HCPCS: 36415; 80048; 80162; 84443; 85027

== ENCOUNTER → 2025-08-05 04:00 | Outpatient (REF) | payer MEDICARE, MEDICAID, SELFPAY ==
[2025-08-05 10:07] LABS: Magnesium 2.6 mg/dL (1.5-2.2); Vitamin D,25 Hydroxy 30.5 ng/mL (30-100)
[2025-08-05 10:13] LABS: Anion Gap 20 (5-15); BUN 17 mg/dL (4-19); BUN/Creat Ratio 27.0 RATIO (10-20); Calcium,Total 9.5 mg/dL (7.6-11.0); Carbon Dioxide 19.2 mmol/L (21.0-32.0); Chloride 87 mmol/L (98-108); Glucose 132 mg/dL (70-99); Potassium 4.5 mmol/L (3.3-5.1)
== END ==
LOC: OLS.SW 04:00
PROVIDERS: PCP Internal Medicine; Referring Provider Internal Medicine; Visit Provider Internal Medicine
DX: I48.0 Paroxysmal atrial fibrillation (principal); F03.90 Unspecified dementia, unspecified severity, without behavioral disturbance, psychotic disturbance, mood disturbance, and anxiety
CPT/HCPCS: 36415; 80048; 82306; 83735

== ENCOUNTER 2025-08-08 00:39 | Inpatient (IN) | payer MEDICARE, MEDICAID, SELFPAY ==
[2025-08-08] VITALS (26 sets, daily range): BP systolic 114–131; BP diastolic 60–97; PULSE 71–108; RESP 12–28; TEMP 36.4–36.9; O2SAT 91–100; BMI 40.0; BMI 42.1
[2025-08-08 01:55] LABS: Allen Test Positive; Base Excess 7 mmol/L (-2 to +2); FI02 2.0; PO2 60 mmHG (75-100); SITE L Radial; SO2 87 % (94-98)
--- NOTE | 2025-08-08 02:20 | RAD_ITS ---
PROCEDURE: CHEST 1 VIEW (PORTABLE) 08/08/2025 REASON FOR EXAM: DYSPNEA TECHNIQUE: Frontal view of the chest. COMPARISON: 09/01/2023. FINDINGS: Interval appearance of mild central pulmonary venous congestion. Interval appearance of bilateral basilar atelectatic changes/infiltrates. There is no demonstrated pleural abnormality. Enlarged cardiac silhouette. Normal mediastinum and pedrito. Normal visualized pulmonary arteries. Atheromatous plaques of the visualized aortic arch and descending thoracic aorta. Diffuse spondylosis of the visualized thoracic spine. Normal visualized ribs, clavicles. Degenerative joint disease. There is no demonstrated abnormality of the visualized soft tissue structures of the upper abdomen. RAD/Chest 1 View (Portable) IMPRESSION: Interval appearance of mild central pulmonary venous congestion. Interval appearance of bilateral basilar atelectatic changes/infiltrates. Enlarged cardiac silhouette. Reading Location: [place] [id number]
[2025-08-08 02:56] LABS: Hematocrit 38.3 % (37-47); Hemoglobin 12.4 g/dL (12.0-15.0); Immature Granulocytes Count 0.040 X10^3/uL (0.0-0.0); Mean Corp Hgb Conc 32.4 g/dL (32-36); Mean Corpuscular Volume 89.7 fL (81-99); Mean Platelet Vol. 9.7 fl (6.2-12.0); NRBC Flagged by Analyzer 0 % (0-5); Platelet Count 274 K/mm3 (150-450); RBC Distribution Width CV 14.3 % (11.6-14.6); RBC Distribution Width SD 47.1 fl (35.1-43.9); Red Blood Count 4.27 M/mm3 (4.2-5.4); White Blood Count 9.7 K/mm3 (4.4-11.0)
[2025-08-08 04:00] LABS: Magnesium 2.1 mg/dL (1.5-2.2); Pro- Brain NATRIURETIC PEPTIDE 1984 pg/mL (<=900); Procalcitonin 0.06 ng/mL (<=0.10)
[2025-08-08] MEDS: Furosemide 20 MG/2 ML VIAL IV (04:01)
[2025-08-08 04:08] LABS: Anion Gap 9 (5-15); BUN 13 mg/dL (4-19); BUN/Creat Ratio 29.7 RATIO (10-20); Calcium,Total 8.9 mg/dL (7.6-11.0); Carbon Dioxide 31.4 mmol/L (21.0-32.0); Chloride 87 mmol/L (98-108); Estimated Creatinine Clearance 59.28 ml/min (50-250); Glucose 110 mg/dL (70-99); Potassium 4.2 mmol/L (3.3-5.1)
--- NOTE | 2025-08-08 04:18 | CPS ---
[0412] Pt.'s pressure settings increased to better ventilate pt. and increase tidal volumes while she's sleeping. Physician agrees.
--- NOTE | 2025-08-08 04:29 | EX.ED.DYSGE1 ---
HPI History of Present Illness Chief Complaint: Shortness of Breath Informant: patient and family Narrative Narrative: Patient is a 75-year-old female with past medical history of chronic atrial fibrillation currently on Eliquis. She also has a past medical history of hyperlipidemia hypothyroidism previous CVA and crm-xmojadl-dloibxuus diabetes. According to family the patient has developed some cough and congestion and reportedly had an x-ray at the [place] [facility] which showed pneumonia. She was placed on doxycycline and has had 1 or 2 doses of this but this evening had a decreased pulse ox and with this was sent to the hospital for evaluation. Family states the patient is acting at her baseline mental status. 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 and typically stays up at night [facility] Medical History Hypothyroidism Chronic pain CPAP (continuous positive airway pressure) dependence Former smoker Atrial fibrillation Congestive heart failure (CHF) TIA (transient ischemic attack) Stroke/cerebrovascular accident Painful orthopaedic hardware Stiffness of right elbow joint Right elbow pain (HFpEF) heart failure with preserved ejection fraction Atrial flutter Longstanding persistent atrial fibrillation Vitamin D deficiency Dementia Type 2 diabetes mellitus without complication SHYLA treated with BiPAP Carotid artery stenosis GERD (gastroesophageal reflux disease) DDD (degenerative disc disease) Osteoporosis Anticoagulated Ostium secundum atrial septal defect History of stroke Obesity Hyperlipidemia Home Medications ?Medication ?Instructions ?Recorded ?Last Taken ?Type multivitamin with folic acid 400 1 tab PO DAILY 05/16/14 Unknown History mcg tablet calcitriol 0.25 mcg capsule 0.25 mcg PO BID 10/10/17 Unknown History apixaban 5 mg tablet (Eliquis) 5 mg PO BID #60 tabs 08/31/21 Unknown Rx calcium carbonate 1,200 mg PO DAILY 05/11/22 Unknown History citalopram 10 mg tablet 5 mg PO DAILY 05/11/22 Unknown History potassium chloride 20 mEq 20 meq PO BID 09/01/23 Unknown History tablet,extended release digoxin 125 mcg (0.125 mg) tablet 125 mcg PO DAILY 30 days #30 tabs 09/05/23 Unknown Rx doxycycline hyclate 100 mg tablet 100 mg PO BID 08/08/25 Unknown History furosemide 80 mg tablet (Lasix) 80 mg PO BID 08/08/25 Unknown History levothyroxine 100 mcg capsule 100 mcg PO DAILY 08/08/25 Unknown History loratadine 10 mg tablet (Claritin) 10 mg PO DAILY 08/08/25 Unknown History melatonin 3 mg capsule 3 mg PO QHS 08/08/25 Unknown History midodrine 5 mg tablet 5 mg PO BID 08/08/25 Unknown History spironolactone 25 mg tablet 25 mg PO DAILY 08/08/25 Unknown History (Aldactone) Allergy/AdvReac Type Severity Reaction Status Date / Time cephalexin monohydrate (From Allergy Intermediate Hives Verified 08/08/25 00:46 Keflex) ciprofloxacin HCl (From Allergy Intermediate Hives Verified 08/08/25 00:46 Cipro) Environmental Allergies: Allergy Intermediate Hives Verified 08/08/25 00:46 Uncoded (metals) wool Allergy Intermediate Hives Verified 08/08/25 00:46 nickel Allergy Other Verified 08/08/25 00:46 atorvastatin calcium (From AdvReac Intermediate Pain in Verified 08/08/25 00:46 Lipitor) joints rosuvastatin calcium (From AdvReac Pain in Verified 08/08/25 00:46 Crestor) joints Family History Mother Myocardial infarction CAD (coronary artery disease) Father , age 72 Hypertension Surgical History History of cardiac radiofrequency ablation (RFA) (2005) History of gastric bypass History of atrial septal defect repair (1960) History of lateral meniscus repair of right knee History of section History of left heart catheterization (2013) History of thyroidectomy, total (2014) Social History Smoking Status: Former smoker how long ago did patient quit smokin alcohol intake: current alcohol intake frequency: holidays/special occasions only substance use type: does not use caffeine: Yes Type: carbonated beverages Number of servings: 1, coffee Number of servings: 3 and tea Number of servings: 2 ROS ROS ED Constitutional Constitutional ED: Reports other Details: Positive fatigue ; Denies chills or fever(s) ENT ENT ED: Denies sore throat Cardiovascular Cardiovascular: Reports palpitations; Denies chest pain or racing heartbeat Respiratory/Chest Respiratory/Chest: Reports cough and dyspnea Gastrointestinal Gastrointestinal: Denies abdominal pain, diarrhea, nausea or vomiting Musculoskeletal Musculoskeletal: Denies back pain or myalgias Integumentary Denies rash Neurologic Neurologic: Denies headache(s) Hematologic/Lymphatic Hematologic/Lymphatic: Reports easy bleeding and easy bruising EXAM Physical Exam Const Vital Signs: 08/08/25 00:40 08/08/25 00:44 08/08/25 01:21 Temperature 98.4 F 98.4 F Temperature Source Oral Oral Pulse Rate 83 76 Respiratory Rate 20 H 24 H Respiratory Effort Normal Respiratory Depth Normal Respiratory Pattern Normal Blood Pressure 117/97 H 117/97 H Blood Pressure Mean 103 103 Pulse Ox 99 100 Oxygen Delivery Method Nasal Cannula Nasal Cannula Nasal Cannula Oxygen Flow Rate (L/min) 3 2 Fraction of Inspired Oxygen (FIO2) 08/08/25 01:44 08/08/25 02:12 08/08/25 02:12 Temperature 98.4 F Temperature Source Oral Pulse Rate 78 85 Respiratory Rate 28 H 20 H Respiratory Effort Respiratory Depth Respiratory Pattern Normal Blood Pressure 120/72 Blood Pressure Mean 88 Pulse Ox 98 99 99 Oxygen Delivery Method Nasal Cannula Bi-pap Oxygen Flow Rate (L/min) 2 Fraction of Inspired Oxygen (FIO2) 30 30 08/08/25 02:33 08/08/25 02:57 08/08/25 04:03 Temperature 97.8 F 97.8 F Temperature Source Temporal Temporal Pulse Rate 82 76 77 Respiratory Rate 18 24 H 20 H Respiratory Effort Respiratory Depth Respiratory Pattern Blood Pressure 114/62 130/63 H 131/63 H Blood Pressure Mean 79 85 85 Pulse Ox 100 97 91 Oxygen Delivery Method Bi-pap Bi-pap Bi-pap Oxygen Flow Rate (L/min) Fraction of Inspired Oxygen (FIO2) 08/08/25 04:12 08/08/25 04:34 Temperature 98 F Temperature Source Pulse Rate 73 78 Respiratory Rate 21 H 25 H Respiratory Effort Respiratory Depth Respiratory Pattern Tachypnea Blood Pressure 129/64 H Blood Pressure Mean 85 Pulse Ox 94 93 Oxygen Delivery Method Oxygen Flow Rate (L/min) Fraction of Inspired Oxygen (FIO2) 30 Positive well nourished, well developed and obese General Appearance ED: well developed Nutritional Appearance: obese HEENT HEENT Narrative: Normocephalic atraumatic No tongue or lip swelling no oral lesions no airway edema or compromise No secondary findings in the posterior pharynx to suggest infection Eyes PERRL and EOMs intact bilaterally General Eye ED: Negative for scleral icterus Neck supple and no JVD Chest Wall palpation of chest normal Resp Resp Narrative: Patient is in mild respiratory distress with tachypnea and accessory muscle use. Breath sounds are diminished throughout with diffuse crackles concerning for CHF. Cardio regular rate Rate: other Other Details: Irregularly irregular rhythm with regular rate consistent with chronic atrial fibrillation GI normal to inspection, nondistended, normoactive bowel sounds, non-tender, non-distended and no masses GI Narrative: No voluntary guarding or rigidity or pulsatile mass No fluid wave noted Auscultation: normoactive bowel sounds Palpation: soft Extremity Extremity Narrative: +2 pitting edema to the bilateral lower extremities that is equal and symmetric Patient has chronic stasis changes to the bilateral lower legs as well Neuro CN's II-XII intact bilaterally Neuro Narrative: Patient is at baseline mental status per family without focal neurologic deficit Sensorium / Orientation: alert Psych Psych Narrative: Patient has a fatigued mental state. She will wake to voice and answer questions but then quickly fall back asleep. Skin Skin Narrative: Chronic stasis changes bilateral lower legs without secondary findings to suggest infection MDM MDM MDM Narrative Medical decision making narrative: Patient arrived to the ER afebrile and normotensive in atrial fibrillation which is chronic per family. They report she does not require supplemental oxygen at baseline and was reportedly low at the [place] [facility]. They state that she was recently diagnosed with pneumonia but her history and exam is most concerning for congestive heart failure. Secondary to this basic blood work was obtained as well as a chest x-ray and ABG. ABG showed hypoxia with a PaO2 of 60 and a pCO2 of 66 consistent with hypercarbia. Because of her depressed mental status I felt that she was not tolerating the elevation to her CO2 well and therefore she was placed on BiPAP. With chest x-ray and physical exam showing changes concerning for CHF she was given IV Lasix. Her white count is normal she is afebrile her procalcitonin value is normal and therefore do not feel this is an infectious process but simply volume overload and do not feel the need for antibiotic. However as the patient is now requiring noninvasive ventilation to keep her oxygen value is greater than 90% and family states that she is a DNR Comfort Care arrest no intubation I do not feel that return to the [place] [facility] is the safest option for her. The hospitalist was then contacted who agrees with the plan of care and will accept the patient to her service for continued treatment History & Record Review Discussion w/independent historian: Patient and Family Lab Data Attestation: I reviewed the patient's lab results. Labs: Laboratory Results - last 24 hr 08/08/25 08/08/25 08/08/25 02:10 02:10 02:38 WBC Cancelled 9.7 Corrected WBC Cancelled RBC Cancelled 4.27 Hgb Cancelled 12.4 Hct Cancelled 38.3 MCV Cancelled 89.7 MCH Cancelled 29.0 MCHC Cancelled 32.4 RDW Std Deviation Cancelled 47.1 H RDW Coeff of Emily Cancelled 14.3 Plt Count Cancelled 274 MPV Cancelled 9.7 Immature Gran % (Auto) Cancelled 0.400 Neut % (Auto) Cancelled 80.2 H Lymph % (Auto) Cancelled 8.5 L Orange % (Auto) Cancelled 10.3 H Eos % (Auto) Cancelled 0.3 Baso % (Auto) Cancelled 0.3 Absolute Neuts (auto) Cancelled 7.8 H Absolute Lymphs (auto) Cancelled 0.83 Total Counted Cancelled Neutrophils % (Manual) Cancelled Band Neutrophils % Cancelled Lymphocytes % (Manual) Cancelled Monocytes % (Manual) Cancelled Eosinophils % (Manual) Cancelled Basophils % (Manual) Cancelled Metamyelocytes % Cancelled Myelocytes % Cancelled Promyelocytes % Cancelled Blast Cells % Cancelled Plasma Cell % (Manual) Cancelled Other Cells % Cancelled Nucleated RBC % Cancelled 0 Nucleated RBCs/100 WBC Cancelled Differential Comment Cancelled Diff Path Review Cancelled Hypersegmented Neuts Cancelled Atypical Lymphocytes Cancelled Reactive Lymphocytes Cancelled Smudge Cells Cancelled Toxic Granulation Cancelled Toxic Vacuolation Cancelled Dohle Bodies Cancelled Genoveva Rods Cancelled Platelet Estimate Cancelled Plt Morphology Comment Cancelled RBC Morphology Cancelled Cancelled Polychromasia Cancelled Hypochromasia Cancelled Basophilic Stippling Cancelled Anisocytosis Cancelled Microcytosis Cancelled Macrocytosis Cancelled Spherocytes Cancelled Sickle Cells Cancelled Target Cells Cancelled Tear Drop Cells Cancelled Ovalocytes Cancelled Stomatocytes Cancelled Santamaria-Mcdade Bodies Cancelled Al Cells Cancelled Bite Cells Cancelled Crenated Cell Cancelled Acanthocytes (Spur) Cancelled Rouleaux Cancelled Schistocytes Cancelled Sodium Cancelled 128 L Potassium Cancelled 4.2 Chloride Cancelled 87 L Carbon Dioxide Cancelled 31.4 Anion Gap Cancelled 9 BUN Cancelled 13 Creatinine Cancelled 0.43 L Estim Creat Clear Calc Cancelled 59.28 Est GFR (MDRD) Non-Af Cancelled 102 BUN/Creatinine Ratio Cancelled 29.7 H Glucose Cancelled 110 H Lactic Acid < 1.0 Calcium Cancelled 8.9 Magnesium Cancelled 2.1 NT pro BNP II Cancelled 1984 H Procalcitonin Cancelled 0.06 ABG Data ABG results: ABG 08/08/25 01:52 Specimen Type ART Sample Site L Radial pH 7.31 L Bicarbonate Actual 33.1 H Total CO2 35 Base Excess 7 H O2 Saturation 87 L O2 % 2.0 ABG pCO2 66.5 H ABG pO2 60 L Ken Test Positive O2 Delivery Device Cannula Vent Mode Not entered Radiography Diagnostic Testing: Clinical Impression(s) from Imaging Studies Chest X-Ray 08/08/25 02:20 IMPRESSION: Interval appearance of mild central pulmonary venous congestion. Interval appearance of bilateral basilar atelectatic changes/infiltrates. Enlarged cardiac silhouette. Reading Location: [place] [id number] Chest x-ray as interpreted by the emergency medicine physician reveals cardiomegaly with pulmonary vascular congestion consistent with CHF Management Discussion w/another healthcare provider: Hospitalist Discharge Plan Dx/Rx/DC Orders Clinical Impression: Acute exacerbation of congestive heart failure, Acute respiratory failure with hypoxia, Longstanding persistent atrial fibrillation, Hyperlipidemia, Type 2 diabetes mellitus without complication, Current use of group home anticoagulation Disposition Disposition: Acute Care [facility]
--- NOTE | 2025-08-08 05:26 | PCM.HP.STD ---
HPI - General General Date of Admission: 08/08/25 Date of Service: 08/08/25 Chief Complaint: Shortness of breath HPI Narrative JODI MOMIN, is a 75 F who presents from her [facility] with new onset shortness of breath. Patient has history of heart failure with preserved EF, COPD not on oxygen or inhalers, A-fib on digoxin and Eliquis and dementia who has been in [facility] for couple years is brought to the emergency department because of shortness of breath. Patient's daughter noticed that patient became weak and fell in the [facility] couple days ago. Yesterday she noticed that she was short of breath while sitting in her wheelchair and that got worse when they tried to move her to a recliner. No worsening in legs swelling, and daughters cannot tell if she had orthopnea or PND at the [facility]. She is on Lasix twice daily. She was noticed to have cough with chest congestion and phlegm but no wheezing. In the ED patient was mildly hypoxemic, she was lethargic and ABG showed pCO2 60 but appears to be compensated with a pH of 7.3 and bicarb of 32, because of lethargy and ABG findings she was placed on BiPAP for several hours in the ED. She was then downgraded to nasal cannula low-flow oxygen. She received IV Lasix 20 g in the ED, she had PureWick but she had no urine output. Bladder scan later on showed 400 mL Chest x-ray showed bilateral interstitial infiltrates, but prior CTs were reviewed and she has pulmonary scars and evidence of pulmonary hypertension suggesting chronic lung disease. Patient will be admitted for decompensated CHF for IV diuresis, treatment for underlying COPD as well, and empiric antibiotics as she is high risk for infection given underlying lung disease and being in a [facility] Medical History Hypothyroidism Chronic pain CPAP (continuous positive airway pressure) dependence Former smoker Atrial fibrillation Congestive heart failure (CHF) TIA (transient ischemic attack) Stroke/cerebrovascular accident Painful orthopaedic hardware Stiffness of right elbow joint Right elbow pain (HFpEF) heart failure with preserved ejection fraction Atrial flutter Longstanding persistent atrial fibrillation Vitamin D deficiency Dementia Type 2 diabetes mellitus without complication SHYLA treated with BiPAP Carotid artery stenosis GERD (gastroesophageal reflux disease) DDD (degenerative disc disease) Osteoporosis Anticoagulated Ostium secundum atrial septal defect History of stroke Obesity Hyperlipidemia Home Medications ?Medication ?Instructions ?Recorded ?Last Taken ?Type multivitamin with folic acid 400 1 tab PO DAILY 05/16/14 Unknown History mcg tablet calcitriol 0.25 mcg capsule 0.25 mcg PO BID 10/10/17 Unknown History apixaban 5 mg tablet (Eliquis) 5 mg PO BID #60 tabs 08/31/21 Unknown Rx calcium carbonate 1,200 mg PO DAILY 05/11/22 Unknown History citalopram 10 mg tablet 5 mg PO DAILY 05/11/22 Unknown History potassium chloride 20 mEq 20 meq PO BID 09/01/23 Unknown History tablet,extended release digoxin 125 mcg (0.125 mg) tablet 125 mcg PO DAILY 30 days #30 tabs 09/05/23 Unknown Rx doxycycline hyclate 100 mg tablet 100 mg PO BID 08/08/25 Unknown History furosemide 80 mg tablet (Lasix) 80 mg PO BID 08/08/25 Unknown History levothyroxine 100 mcg capsule 100 mcg PO DAILY 08/08/25 Unknown History loratadine 10 mg tablet (Claritin) 10 mg PO DAILY 08/08/25 Unknown History melatonin 3 mg capsule 3 mg PO QHS 08/08/25 Unknown History midodrine 5 mg tablet 5 mg PO BID 08/08/25 Unknown History spironolactone 25 mg tablet 25 mg PO DAILY 08/08/25 Unknown History (Aldactone) Allergy/AdvReac Type Severity Reaction Status Date / Time cephalexin monohydrate (From Allergy Intermediate Hives Verified 08/08/25 00:46 Keflex) ciprofloxacin HCl (From Allergy Intermediate Hives Verified 08/08/25 00:46 Cipro) Environmental Allergies: Allergy Intermediate Hives Verified 08/08/25 00:46 Uncoded (metals) wool Allergy Intermediate Hives Verified 08/08/25 00:46 nickel Allergy Other Verified 08/08/25 00:46 atorvastatin calcium (From AdvReac Intermediate Pain in Verified 08/08/25 00:46 Lipitor) joints rosuvastatin calcium (From AdvReac Pain in Verified 08/08/25 00:46 Crestor) joints Family History Mother Myocardial infarction CAD (coronary artery disease) Father , age 72 Hypertension Surgical History History of cardiac radiofrequency ablation (RFA) (2005) History of gastric bypass History of atrial septal defect repair (196) History of lateral meniscus repair of right knee History of section History of left heart catheterization (2013) History of thyroidectomy, total (2014) Social History Smoking Status: Former smoker how long ago did patient quit smokin alcohol intake: current alcohol intake frequency: holidays/special occasions only substance use type: does not use caffeine: Yes Type: carbonated beverages Number of servings: 1, coffee Number of servings: 3 and tea Number of servings: 2 ROS Review of Systems ROS Unobtainable: due to encephalopathy and other Details: On BiPAP, deep sleep Vital Signs Vital Signs Vital Signs: 08/08/25 00:40 08/08/25 00:44 08/08/25 01:21 Temperature 98.4 F 98.4 F Temperature Source Oral Oral Pulse Rate 83 76 Respiratory Rate 20 H 24 H Respiratory Effort Normal Respiratory Depth Normal Respiratory Pattern Normal Blood Pressure 117/97 H 117/97 H Blood Pressure Mean 103 103 Pulse Ox 99 100 Oxygen Delivery Method Nasal Cannula Nasal Cannula Nasal Cannula Oxygen Flow Rate (L/min) 3 2 Fraction of Inspired Oxygen (FIO2) 08/08/25 01:44 08/08/25 02:12 08/08/25 02:12 Temperature 98.4 F Temperature Source Oral Pulse Rate 78 85 Respiratory Rate 28 H 20 H Respiratory Effort Respiratory Depth Respiratory Pattern Normal Blood Pressure 120/72 Blood Pressure Mean 88 Pulse Ox 98 99 99 Oxygen Delivery Method Nasal Cannula Bi-pap Oxygen Flow Rate (L/min) 2 Fraction of Inspired Oxygen (FIO2) 30 30 08/08/25 02:33 08/08/25 02:57 08/08/25 04:03 Temperature 97.8 F 97.8 F Temperature Source Temporal Temporal Pulse Rate 82 76 77 Respiratory Rate 18 24 H 20 H Respiratory Effort Respiratory Depth Respiratory Pattern Blood Pressure 114/62 130/63 H 131/63 H Blood Pressure Mean 79 85 85 Pulse Ox 100 97 91 Oxygen Delivery Method Bi-pap Bi-pap Bi-pap Oxygen Flow Rate (L/min) Fraction of Inspired Oxygen (FIO2) 08/08/25 04:12 08/08/25 04:34 08/08/25 04:55 Temperature 98 F Temperature Source Pulse Rate 73 78 Respiratory Rate 21 H 25 H Respiratory Effort Respiratory Depth Respiratory Pattern Tachypnea Blood Pressure 129/64 H Blood Pressure Mean 85 Pulse Ox 94 93 94 Oxygen Delivery Method Nasal Cannula Oxygen Flow Rate (L/min) 4 Fraction of Inspired Oxygen (FIO2) 30 Weight Weight: 83.9 kg Body Mass Index (BMI) 40.0 Physical Exam Const General Appearance: in distress Positive for respiratory, lethargic and on BiPAP HEENT normocephalic and head/scalp atraumatic Resp Effort and Inspection: tachypneic, respiratory distress, pursed lip breathing and uses accessory muscles Auscultation: crackles and rhonchi; Negative for wheezes Cardio Rate: regular rate Rhythm: abnormal rhythm irregularly irregular Neuro No oriented x3 and moves all extremities Results Lab / Micro Data 08/08/25 02:38 08/08/25 02:38 Labs: Laboratory Results - last 24 hr 08/08/25 02:10: WBC Cancelled, Corrected WBC Cancelled, RBC Cancelled, Hgb Cancelled, Hct Cancelled, MCV Cancelled, MCH Cancelled, MCHC Cancelled, RDW Std Deviation Cancelled, RDW Coeff of Emily Cancelled, Plt Count Cancelled, MPV Cancelled, Immature Gran % (Auto) Cancelled, Neut % (Auto) Cancelled, Lymph % (Auto) Cancelled, [place] % (Auto) Cancelled, Eos % (Auto) Cancelled, Baso % (Auto) Cancelled, Absolute Neuts (auto) Cancelled, Absolute Lymphs (auto) Cancelled, Total Counted Cancelled, Neutrophils % (Manual) Cancelled, Band Neutrophils % Cancelled, Lymphocytes % (Manual) Cancelled, Monocytes % (Manual) Cancelled, Eosinophils % (Manual) Cancelled, Basophils % (Manual) Cancelled, Metamyelocytes % Cancelled, Myelocytes % Cancelled, Promyelocytes % Cancelled, Blast Cells % Cancelled, Plasma Cell % (Manual) Cancelled, Other Cells % Cancelled, Nucleated RBC % Cancelled, Nucleated RBCs/100 WBC Cancelled, Differential Comment Cancelled, Diff Path Review Cancelled, Hypersegmented Neuts Cancelled, Atypical Lymphocytes Cancelled, Reactive Lymphocytes Cancelled, Smudge Cells Cancelled, Toxic Granulation Cancelled, Toxic Vacuolation Cancelled, Dohle Bodies Cancelled, Genoveva Rods Cancelled, Platelet Estimate Cancelled, Plt Morphology Comment Cancelled, RBC Morphology Cancelled 08/08/25 02:10: RBC Morphology Cancelled, Polychromasia Cancelled, Hypochromasia Cancelled, Basophilic Stippling Cancelled, Anisocytosis Cancelled, Microcytosis Cancelled, Macrocytosis Cancelled, Spherocytes Cancelled, Sickle Cells Cancelled, Target Cells Cancelled, Tear Drop Cells Cancelled, Ovalocytes Cancelled, Stomatocytes Cancelled, [place] Bodies Cancelled, [place] Cells Cancelled, Bite Cells Cancelled, Crenated Cell Cancelled, Acanthocytes (Spur) Cancelled, Rouleaux Cancelled, Schistocytes Cancelled, Sodium Cancelled, Potassium Cancelled, Chloride Cancelled, Carbon Dioxide Cancelled, Anion Gap Cancelled, BUN Cancelled, Creatinine Cancelled, Estim Creat Clear Calc Cancelled, Est GFR (MDRD) Non-Af Cancelled, BUN/Creatinine Ratio Cancelled, Glucose Cancelled, Calcium Cancelled, Magnesium Cancelled, NT pro BNP II Cancelled, Procalcitonin Cancelled 08/08/25 02:38: WBC 9.7, RBC 4.27, Hgb 12.4, Hct 38.3, MCV 89.7, MCH 29.0, MCHC 32.4, RDW Std Deviation 47.1 H, RDW Coeff of Emily 14.3, Plt Count 274, MPV 9.7, Immature Gran % (Auto) 0.400, Neut % (Auto) 80.2 H, Lymph % (Auto) 8.5 L, [place] % (Auto) 10.3 H, Eos % (Auto) 0.3, Baso % (Auto) 0.3, Absolute Neuts (auto) 7.8 H, Absolute Lymphs (auto) 0.83, Nucleated RBC % 0, Sodium 128 L, Potassium 4.2, Chloride 87 L, Carbon Dioxide 31.4, Anion Gap 9, BUN 13, Creatinine 0.43 L, Estim Creat Clear Calc 59.28, Est GFR (MDRD) Non-Af 102, BUN/Creatinine Ratio 29.7 H, Glucose 110 H, Lactic Acid < 1.0, Calcium 8.9, Magnesium 2.1, NT pro BNP II 1984 H, Procalcitonin 0.06 ABG Data ABG results: ABG 08/08/25 01:52 Specimen Type ART Sample Site L Radial pH 7.31 L Bicarbonate Actual 33.1 H Total CO2 35 Base Excess 7 H O2 Saturation 87 L O2 % 2.0 ABG pCO2 66.5 H ABG pO2 60 L Ken Test Positive O2 Delivery Device Cannula Vent Mode Not entered Imaging Radiology Impression Chest X-Ray 08/08/25 02:20 IMPRESSION: Interval appearance of mild central pulmonary venous congestion. Interval appearance of bilateral basilar atelectatic changes/infiltrates. Enlarged cardiac silhouette. Reading Location: [place] [id number] Assessment & Plan Assessment/Plan (1) Acute hypoxemic respiratory failure: (2) Chronic hypercapnic respiratory failure: (3) Heart failure, diastolic, with acute decompensation: (4) COPD (chronic obstructive pulmonary disease): (5) Longstanding persistent atrial fibrillation: PLAN: Plan 75-year-old female comes in with acute hypoxemic respiratory failure likely from decompensated CHF. She has chronic hypercapnia likely from underlying COPD. She will be managed with IV diuresis and empiric antibiotics. She initially required BiPAP now downgraded to 4 L nasal cannula. Admission to PCU. DNR CCA no intubation Acute hypoxemia: Continue nasal cannula oxygen. BiPAP as needed. Chronic hypercapnia: ABG showed a compensated hypercapnia with a pH of 7.3 and bicarb of 32. Reportedly has a COPD diagnosis but not on oxygen or inhalers. Prior CT showed dilated pulmonary arteries consistent with pulm hypertension Decompensated CHF: Preserved EF. Unclear trigger for decompensation may be infection. On midodrine which may increase afterload, will reduce the dose Sodium 128 consistent with volume overload IV Lasix 40 mg x 2/day. This is at least equal to her home dose of 80 mg p.o. twice daily COPD: Has worsening cough, dyspnea and sputum so she qualifies for antibiotics. Rocephin 1 g IV daily for 3 to 5 days A-fib: Continue digoxin and Eliquis Sepsis Attestation Sepsis Attestation: Sepsis Ruled Out Charges/Coding Visit Charges Inpatient E&M: 34465 Init Hosp L3
[2025-08-08 06:36] LABS: Mucous, Urine 0 SEEN /hpf (<or=2+); Squamous Epithelial Cells - UA 0 SEEN /hpf (5-10)
[2025-08-08 06:48] LABS: Glucose, Dipstick Normal (Normal); Ketone-Dipstick Negative (Negative); Leukocyte Esterase-Dipstick Negative /ul (Negative); Nitrite-Dipstick Negative (Negative); Occult Blood-Urine 25 /ul (Negative); Protein-Dipstick 15 mg/dl (Negative); Specific Gravity, Urine 1.020 (1.002-1.030); Urine Bilirubin Dipstick Negative (Negative)
--- NOTE | 2025-08-08 06:56 | EKG12_ITS ---
Test Reason : ARRYTH Blood Pressure : */* mmHG Vent. Rate : 103 BPM Atrial Rate : * BPM P-R Int : * ms QRS Dur : 84 ms QT Int : 328 ms P-R-T Axes : * 73 121 degrees QTcB Int : 429 ms Atrial fibrillation with rapid ventricular response with premature ventricular or aberrantly conducted complexes Nonspecific ST and T wave abnormality Abnormal ECG When compared with ECG of 01-Sep-2023 13:21, Nonspecific T wave abnormality no longer evident in Inferior leads Confirmed by ALEXANDRIA MILLER ([id number]), research editor HALEIGH WILLIAM ([id number]) on 08/11/2025 6:45:47 AM Referred By: ANNEL Confirmed By: ALEXANDRIA MILLER
[2025-08-08 07:18] LABS: Color, Urine Yellow (Yellow)
[2025-08-08 07:30] LABS: Troponin T High Sensitivity 28 ng/L (<=14)
[2025-08-08 07:38] LABS: Red Blood Cells-Urine 0-5 SEEN /hpf (0-5)
--- NOTE | 2025-08-08 09:33 | PCM.PN.BLA ---
Progress Note Maintaining her oxygen saturations on 4 L nasal cannula, she is still fairly congested and there is a lot of upper airway sounds, continue with Lasix. No signs of infection it does appear that she is on doxycycline at home, will verify reason.
--- NOTE | 2025-08-08 11:06 | CASEMGMT ---
Pt A&OX1, RN JESSICA called pt daughter to discuss DC planning. Pt is from [facility], Pt daughter states she is patients HCPOA, she has signed papers and will bring them into the hospital to make a copy for [facility] records. Pt daughter, Lalita, states she wishes for Pt to return to [facility]. RN JESSICA notified and DC planning director.
--- NOTE | 2025-08-08 12:16 | CASEMGMT ---
Addendum entered by Helena Marshall 08/08/25 12:29: Pt is a bedhold and can return when medically ready. [facility] would like to skill. Physician was agreeable to PT/OT orders. RN CM updated. Original Note: Discharge Planning Updates sent to via [employer] to [facility]. Helena Marshall DC Planning Asst.
--- NOTE | 2025-08-08 12:48 | CASEMGMT ---
Discharge Planning CC is aware that pt may return over the weekend. Green sheet and transport form placed on chart. Helena Marshall DC Planning Asst.
[2025-08-09] VITALS (29 sets, daily range): BP systolic 108–135; BP diastolic 51–96; PULSE 78–114; RESP 14–37; TEMP 36.1–37.4; O2SAT 86–100; BMI 27.9
--- NOTE | 2025-08-09 03:56 | RAD_ITS ---
PROCEDURE: CHEST 1 VIEW (PORTABLE) 08/09/2025 REASON FOR EXAM: LOW SPO2 TECHNIQUE: Frontal view of the chest. COMPARISON: 08/08/2025 FINDINGS: Enlarged cardiac size and CHF changes. Right mid and lower lung zones and left lower lung zone patchy pneumonic consolidation are seen. Right pleural effusion. No pneumothorax. No definite right ribs abnormalities. Chronic healed left few ribs fractures. RAD/Chest 1 View (Portable) IMPRESSION: Cardiomegaly and CHF. Bilateral pneumonic consolidation and right pleural effusion. No new acute fin dings. Follow-up is recommended Reading [facility]
--- NOTE | 2025-08-09 04:00 | NURSING ---
0400 called daughter, macarena and gave her an update on her moms current status. I informed her that she is at maximum oxygen needs and we are ordering tests to see what is going on. She confirmed her mom does not want to be intubated. I will call her with any new updates.
--- NOTE | 2025-08-09 04:02 | NUR.TO.PHY ---
[address] Mirian Wright with an update on the patient. notified him that she is requiring more and more oxygen. She is currently at 80% fio2 and only sat 88-89%. Dr responded and ordered a stat cxr. He also wanted the family notified.
--- NOTE | 2025-08-09 04:04 | NUR.TO.PHY ---
0355 Dr. Mirian Wright notified patient is now at 100% fio2 on the bipap
[2025-08-09] MEDS: Cefepime HCl 2 GM in 0.9% Normal Saline (100mL MB+) 100 ML IV ×3 (06:07→21:43)
[2025-08-09] MEDS: 0.9% Normal Saline (250mL Bag) 250 ML 15 ML IV ×2 (06:07→06:13)
[2025-08-09] MEDS: 0.9% Saline Lock 10 ML Syringe IV (06:13)
[2025-08-09] MEDS: Vancomycin HCl 1,250 MG in 0.9% Normal Saline (250mL Bag) 250 ML 167 MG IV (06:14)
--- NOTE | 2025-08-09 06:39 | PCM.RX.CS ---
Consult Antibiotic Management Pharmacy has been consulted to manage selected antibiotic: Vancomycin Type of Intervention Type of Consult: New start Labs Labs: Sodium 128 mmol/L (133-145) L 08/08/25 02:38 Potassium 4.2 mmol/L (3.3-5.1) 08/08/25 02:38 Chloride 87 mmol/L (98-108) L 08/08/25 02:38 Carbon Dioxide 31.4 mmol/L (21.0-32.0) 08/08/25 02:38 Anion Gap 9 (5-15) 08/08/25 02:38 BUN 13 mg/dL (4-19) 08/08/25 02:38 Creatinine 0.43 mg/dL (0.70-1.20) L 08/08/25 02:38 Est GFR (MDRD) Non-Af 102 (>60) 08/08/25 02:38 BUN/Creatinine Ratio 29.7 RATIO (10-20) H 08/08/25 02:38 Glucose 110 mg/dL (70-99) H 08/08/25 02:38 Dosing Weight Weight used for dosin.6 kg Estimated Creatinine Clearance Estimated Creatinine Clearance: 59.28 Goal Trough Goal Trough: 10-15 mcg/mL Pharmacy Plan for Drug Dosing Pharmacy Plan for Drug Dosing: Pharmacy Service will continue to monitor and adjust dosing as required. INITIAL DOSE 1250MG GIVEN 08/09 @ 0614. START 500MG Q12H AND DRAW TROUGH PRIOR TO 4TH DOSE Follow-Up Labs Follow-Up Labs: Trough: Vancomycin Date/Time Labs Ordered Labs to be done on [date and time ordered]: 08/10 @ 1800
--- NOTE | 2025-08-09 06:41 | NURSING ---
0034 called patient's daughter, macarena, to update her on patient status and plan of care. She is understanding of the plan of care and agrees to course of action. I told her that the doctor would be in touch if he is wanting to perform any procedures on her. He will call for consent before anything is done. She is appreciative and understanding.
[2025-08-09 07:12] LABS: Anion Gap 10 (5-15); BUN 16 mg/dL (4-19); BUN/Creat Ratio 34.3 RATIO (10-20); Calcium,Total 9.0 mg/dL (7.6-11.0); Carbon Dioxide 33.9 mmol/L (21.0-32.0); Chloride 88 mmol/L (98-108); Estimated Creatinine Clearance 65.27 ml/min (50-250); Glucose 91 mg/dL (70-99); Magnesium 2.2 mg/dL (1.5-2.2); Potassium 4.4 mmol/L (3.3-5.1)
--- NOTE | 2025-08-09 08:16 | PCM.HOSP.N ---
Hospitalist Note Bedside thoracentesis was attempted. Ultrasound showed a small fluid pocket above the right diaphragm, or it was a large pocket but has loculations making bedside thoracentesis very difficult so it was not attempted. This was visualized with the patient in a left lateral semi-decubitus while on BiPAP. Ultrasound also showed areas of consolidation above the right diaphragm suggesting pneumonia. The daughter Lalita was updated about this, and the plan is to treat pneumonia with broad-spectrum antibiotics and watch for improvement over 24 to 48 hours
--- NOTE | 2025-08-09 10:06 | PCM.PN.HOSP ---
Subjective Subjective Worsening chest x-ray and currently on 70% FiO2 on BiPAP Objective Data Objective Data Vital Signs: Vital Signs Temp Pulse Resp BP Pulse Ox O2 Del Method O2 Flow Rate 97.9 F 78 30 H 129/68 H 96 Bi-pap 3 08/09/25 00:00 08/09/25 07:50 08/09/25 07:50 08/09/25 06:00 08/09/25 07:50 08/09/25 07:50 08/08/25 12:48 FiO2 70 08/09/25 07:50 Oxygen Flow Rate (L/min) 3 Oxygen Delivery Method Bi-pap Weight: 173 lb 4.533 oz Body Mass Index (BMI) 27.9 Intake & Output: Intake and Output for Last 24 Hours 08/08/25 08/09/25 08/10/25 03:59 03:59 03:59 Intake Total 0 / 0 100 / 100 Output Total 1475 / 1475 Balance -1475 / -1475 100 / 100 Lab / Micro Data 08/08/25 02:38 08/09/25 06:34 Labs: Laboratory Results - last 24 hr 08/08/25 18:11: POC Glucose 114 H 08/09/25 00:36: POC Glucose 93 08/09/25 05:57: POC Glucose 96 08/09/25 06:34: Sodium 132 L, Potassium 4.4, Chloride 88 L, Carbon Dioxide 33.9 H, Anion Gap 10, BUN 16, Creatinine 0.46 L, Estim Creat Clear Calc 65.27, Est GFR (MDRD) Non-Af 101, BUN/Creatinine Ratio 34.3 H, Glucose 91, Calcium 9.0, Magnesium 2.2 Radiography Diagnostic Testing: Radiology Impression Chest X-Ray 08/09/25 03:56 IMPRESSION: Cardiomegaly and CHF. Bilateral pneumonic consolidation and right pleural effusion. No new acute findings. Follow-up is recommended Reading Location: [place] [id number] Physical Exam Narrative General: Drowsy but does respond to stimulation HEENT: Atraumatic, PERRLA, Normocephalic Oral: Moist Mucosa Neck: Supple, No JVD Lungs: Diminished, Normal air movement, rhonchi, No wheeze, No rales Cardiovascular: Regular rate, irregular rhythm, Normal S1, Normal S2, No murmurs Abdomen: Soft, Non Tender, Non-Distended, No Hepato-splenomegaly Extremities: No edema, Capillary Refill Less than 3 Seconds Skin: No rashes, No breakdown Musculoskeletal: No Tenderness to Palpation of Joints or Extremities Neurological: Moves all extremities, does not follow exam commands Psych/Mental Status: Flat Assessment & Plan Assessment/Plan (1) Acute hypoxemic respiratory failure: (2) Chronic hypercapnic respiratory failure: (3) Heart failure, diastolic, with acute decompensation: PLAN: Plan 1. Acute hypoxic and hypercapnic respiratory failure secondary to COPD exacerbation as well as acute on chronic diastolic CHF and possible pneumonia ? She has been having increasing cough and dyspnea and was placed on initially Rocephin however overnight her respiratory status declined with increasing FiO2's on BiPAP ? She was broadened to cefepime and vancomycin which we will continue ? Continue with IV Lasix ? Chest x-ray shows worsening bilateral fluffy infiltrates with almost whiteout of the right lung ? Continue with midodrine ? Echocardiogram from 08/09/2023 with an EF of 50% and a PASP of 20 mmHg ? Given the broadening of her antibiotics we will discontinue her p.o. doxycycline from home 2. A-fib ? Continue with Eliquis ? Currently regular rate with an irregular rhythm DVT: Eliquis Extensive discussions were had with family overnight as her respiratory status declined, and she is a DNR CCA no intubation Charges/Coding Visit Charges Inpatient E&M: 67395 Subs Hosp L2
[2025-08-09] MEDS: Vancomycin HCl 500 MG in 0.9% Normal Saline (100mL Bag) 100 ML 100 MG IV (18:01)
--- NOTE | 2025-08-09 20:47 | CPS ---
@2030 Bipap pressures were decreased from AVAPS settings to S/T settings 18/10 with an FiO2 increase to 80% per the request of the physician with the concern that Positive Inspiratory Pressures were going up too high and increasing a risk for aspiration and forcing too much air into the stomach. As long as the patient's oxygen saturation will tolerate the decrease in pressure settings will attempt to be weaned further.
[2025-08-10] VITALS (14 sets, daily range): BP systolic 106–132; BP diastolic 64–80; PULSE 91–128; RESP 16–36; TEMP 35.8–36.6; O2SAT 91–98; BMI 26.7
[2025-08-10] MEDS: Cefepime HCl 2 GM in 0.9% Normal Saline (100mL MB+) 100 ML IV ×3 (06:10→21:09)
[2025-08-10 06:24] LABS: Hematocrit 39.3 % (37-47); Hemoglobin 12.4 g/dL (12.0-15.0); Immature Granulocytes Count 0.070 X10^3/uL (0.0-0.0); Mean Corp Hgb Conc 31.6 g/dL (32-36); Mean Corpuscular Volume 90.3 fL (81-99); Mean Platelet Vol. 9.7 fl (6.2-12.0); NRBC Flagged by Analyzer 0 % (0-5); Platelet Count 257 K/mm3 (150-450); RBC Distribution Width CV 14.0 % (11.6-14.6); RBC Distribution Width SD 46.8 fl (35.1-43.9); Red Blood Count 4.35 M/mm3 (4.2-5.4); White Blood Count 13.1 K/mm3 (4.4-11.0)
[2025-08-10 06:51] LABS: Anion Gap 13 (5-15); BUN 15 mg/dL (4-19); BUN/Creat Ratio 26.9 RATIO (10-20); Calcium,Total 9.1 mg/dL (7.6-11.0); Carbon Dioxide 34.6 mmol/L (21.0-32.0); Chloride 90 mmol/L (98-108); Estimated Creatinine Clearance 63.95 ml/min (50-250); Glucose 108 mg/dL (70-99); Potassium 3.3 mmol/L (3.3-5.1)
[2025-08-10] MEDS: Vancomycin HCl 500 MG in 0.9% Normal Saline (100mL Bag) 100 ML 100 MG IV (06:59)
[2025-08-10] MEDS: 0.9% Normal Saline (250mL Bag) 250 ML 15 ML IV (07:00)
[2025-08-10] MEDS: APIXABAN 5 MG TABLET PO ×2 (09:27→21:11)
--- NOTE | 2025-08-10 10:37 | PCM.PN.HOSP ---
Subjective Subjective Continuing to make some improvements, currently down to 50% FiO2 on the BiPAP. She can take p.o. Objective Data Objective Data Vital Signs: Vital Signs Temp Pulse Resp BP Pulse Ox O2 Del Method O2 Flow Rate 96.5 F L 103 H 28 H 117/67 96 Bi-pap 10 08/10/25 02:00 08/10/25 09:27 08/10/25 07:23 08/10/25 02:00 08/10/25 07:23 08/10/25 02:00 08/09/25 19:00 FiO2 50 08/10/25 07:23 Oxygen Flow Rate (L/min) 10 Oxygen Delivery Method Bi-pap Weight: 165 lb 12.602 oz Body Mass Index (BMI) 26.7 Intake & Output: Intake and Output for Last 24 Hours 08/09/25 08/10/25 08/11/25 03:59 03:59 03:59 Intake Total 0 / 0 1545 / 1545 210 / 210 Output Total 1475 / 1475 1825 / 1825 0 / 0 Balance -1475 / -1475 -280 / -280 210 / 210 Lab / Micro Data 08/10/25 05:24 08/10/25 05:24 Labs: Laboratory Results - last 24 hr 08/09/25 12:55: POC Glucose 94 08/09/25 18:22: POC Glucose 90 08/09/25 21:48: POC Glucose 127 H 08/10/25 05:24: WBC 13.1 H, RBC 4.35, Hgb 12.4, Hct 39.3, MCV 90.3, MCH 28.5, MCHC 31.6 L, RDW Std Deviation 46.8 H, RDW Coeff of Emily 14.0, Plt Count 257, MPV 9.7, Immature Gran % (Auto) 0.500, Neut % (Auto) 82.9 H, Lymph % (Auto) 6.6 L, [place] % (Auto) 9.5, Eos % (Auto) 0.3, Baso % (Auto) 0.2, Absolute Neuts (auto) 10.9 H, Absolute Lymphs (auto) 0.87, Nucleated RBC % 0, Sodium 137, Potassium 3.3, Chloride 90 L, Carbon Dioxide 34.6 H, Anion Gap 13, BUN 15, Creatinine 0.55 L, Estim Creat Clear Calc 63.95, Est GFR (MDRD) Non-Af 96, BUN/Creatinine Ratio 26.9 H, Glucose 108 H, Calcium 9.1 Physical Exam Narrative General: Alert, oriented x 1-2, cooperative, no acute distress HEENT: Atraumatic, PERRLA, Normocephalic Oral: Moist Mucosa Neck: Supple, No JVD Lungs: Diminished, Normal air movement, rhonchi, No wheeze, No rales Cardiovascular: Regular rate, irregular rhythm, Normal S1, Normal S2, No murmurs Abdomen: Soft, Non Tender, Non-Distended, No Hepato-splenomegaly Extremities: No edema, Capillary Refill Less than 3 Seconds Skin: No rashes, No breakdown Musculoskeletal: No Tenderness to Palpation of Joints or Extremities Neurological: Moves all extremities, does not follow exam commands Psych/Mental Status: Flat Assessment & Plan Assessment/Plan (1) Acute hypoxemic respiratory failure: (2) Chronic hypercapnic respiratory failure: (3) Heart failure, diastolic, with acute decompensation: PLAN: Plan 1. Acute hypoxic and hypercapnic respiratory failure secondary to COPD exacerbation as well as acute on chronic diastolic CHF and possible pneumonia ? She was broadened to cefepime and vancomycin which we will continue ? Continue with IV Lasix ? Chest x-ray shows worsening bilateral fluffy infiltrates with almost whiteout of the right lung ? Continue with midodrine ? Echocardiogram from 08/09/2023 with an EF of 50% and a PASP of 20 mmHg ? Given the broadening of her antibiotics we will discontinue her p.o. doxycycline from home 2. A-fib ? Continue with Eliquis ? Currently regular rate with an irregular rhythm ? Continue with digoxin ? She can take pills while on BiPAP DVT: Eliquis Charges/Coding Visit Charges Inpatient E&M: 90414 Subs Hosp L2
--- NOTE | 2025-08-10 10:40 | ECHOCS_ITS ---
Reason For Study Reason For Study: CHF Procedure This was a 2D Doppler, Color Flow transthoracic echocardiogram. The study was technically difficult. Contrast injection was performed. Echo done with patient sitting upright due to SOB. Exam performed portable in patient room. Left Ventricle Normal size and thickness. The left ventricular ejection fraction is 45 %. At least stage I diastolic dysfunction. Right Ventricle Normal right ventricle. Atria There is mild biatrial dilatation. Mitral Valve Moderate eccentric mitral valve regurgitation. Tricuspid Valve Mild (1+) tricuspid valve insufficiency. Right ventricular systolic pressure estimated to be 46 mmHg. Aortic Valve There is no aortic stenosis. No aortic valve insufficiency. Pulmonic Valve The pulmonic valve is not well visualized. Great Vessels The aortic root is not well visualized. Pericardium/Pleural No pericardial effusion. Medication Diluted definity 3ml given slow IV push to enhance endocardial definition. MMode/2D Measurements & Calculations LVIDd: 4.8 cm IVSd: 0.89 cm Ao root diam: 3.0 cm LVIDs: 3.8 cm LVPWd: 0.96 cm RVDd: 4.3 cm FS: 20.5 % LAV(MOD-bp): 66.0 ml LVAd ap4: 27.9 cm2 SV(MOD-sp4): 41.1 ml LAV(MOD-bp) Indexed: 35.3 ml/m2 LVLd ap4: 6.9 cm SI(MOD-sp4): 21.9 ml/m2 LAV(MOD-sp2): 33.0 ml EDV(MOD-sp4): 93.2 ml LAV(MOD-sp4): 73.7 ml EDV(sp4-el): 96.3 ml LVAs ap4: 19.9 cm2 LVLs ap4: 6.4 cm ESV(MOD-sp4): 52.2 ml ESV(sp4-el): 52.5 ml EF(MOD-sp4): 44.0 % EF(sp4-el): 45.4 % SV(sp4-el): 43.7 ml LA A4 area: 26.2 cm2 LA dimension(2D): 4.2 cm RA A4 area: 22.2 cm2 Doppler Measurements & Calculations MV E max luis: 79.3 cm/sec MV V2 max: 93.8 cm/sec Ao V2 max: 134.7 cm/sec MV max P.5 mmHg Ao max P.3 mmHg MV V2 mean: 53.6 cm/sec MV mean P.4 mmHg MV V2 VTI: 15.6 cm LV V1 max: 98.4 cm/sec MR max luis: 528.0 cm/sec TR max luis: 280.1 cm/sec LV V1 max P.9 mmHg MR max P.5 mmHg TR max P.4 mmHg LV V1 mean P.8 mmHg LV V1 mean: 61.8 cm/sec LV V1 VTI: 14.3 cm ECHO/Echo Complete W/ Contrast Interpretation Summary The left ventricular ejection fraction is 45 %. At least stage I diastolic dysfunction. There is mild biatrial dilatation. Moderate eccentric mitral valve regurgitation. Mild (1+) tricuspid valve insufficiency. Right ventricular systolic pressure estimated to be 46 mmHg. Ordering Physician: Karl Tavarez Performed By: Valeriano Packer RCS
[2025-08-10] MEDS: Vancomycin Trough/Random Due 1 LAB MC (18:38)
[2025-08-10] MEDS: 0.9% Saline Lock 10 ML Syringe IV (18:38)
[2025-08-10 18:50] LABS: Vancomycin, Trough Level 6.4 ug/mL (5.0-15.0)
[2025-08-10] MEDS: Vancomycin HCl 750 MG in 0.9% Normal Saline (250mL Bag) 250 ML 250 MG IV (19:38)
[2025-08-10] MEDS: MELATONIN 3 MG TABLET PO (21:11)
--- NOTE | 2025-08-10 21:48 | PCM.RX.CS ---
Consult Antibiotic Management Pharmacy has been consulted to manage selected antibiotic: Vancomycin Type of Intervention Type of Consult: Follow-up Labs Labs: Sodium 137 mmol/L (133-145) 08/10/25 05:24 Potassium 3.3 mmol/L (3.3-5.1) 08/10/25 05:24 Chloride 90 mmol/L (98-108) L 08/10/25 05:24 Carbon Dioxide 34.6 mmol/L (21.0-32.0) H 08/10/25 05:24 Anion Gap 13 (5-15) 08/10/25 05:24 BUN 15 mg/dL (4-19) 08/10/25 05:24 Creatinine 0.55 mg/dL (0.70-1.20) L 08/10/25 05:24 Est GFR (MDRD) Non-Af 96 (>60) 08/10/25 05:24 BUN/Creatinine Ratio 26.9 RATIO (10-20) H 08/10/25 05:24 Glucose 108 mg/dL (70-99) H 08/10/25 05:24 Vancomycin Trough 6.4 ug/mL (5.0-15.0) 08/10/25 18:03 Goal Trough Goal Trough: 10-15 mcg/mL Pharmacy Plan for Drug Dosing Pharmacy Plan for Drug Dosing: Pharmacy Service will continue to monitor and adjust dosing as required. TROUGH 6.4 @ 11 HOURS. INCREASE TO 750MG Q12H NAD DRAW TROUGH PRIOR TO 4TH DOSE Follow-Up Labs Follow-Up Labs: Trough: Vancomycin Date/Time Labs Ordered Labs to be done on [date and time ordered]: 08/12 @ 0630
[2025-08-11] VITALS (10 sets, daily range): BP systolic 107–132; BP diastolic 57–80; PULSE 92–116; RESP 18–31; TEMP 36.4–36.6; O2SAT 91–99; BMI 27.7
[2025-08-11] MEDS: Cefepime HCl 2 GM in 0.9% Normal Saline (100mL MB+) 100 ML IV ×3 (05:14→21:17)
[2025-08-11 06:17] LABS: Hematocrit 39.5 % (37-47); Hemoglobin 12.7 g/dL (12.0-15.0); Immature Granulocytes Count 0.050 X10^3/uL (0.0-0.0); Mean Corp Hgb Conc 32.2 g/dL (32-36); Mean Corpuscular Volume 91.2 fL (81-99); Mean Platelet Vol. 9.2 fl (6.2-12.0); NRBC Flagged by Analyzer 0 % (0-5); Platelet Count 245 K/mm3 (150-450); RBC Distribution Width CV 14.1 % (11.6-14.6); RBC Distribution Width SD 47.7 fl (35.1-43.9); Red Blood Count 4.33 M/mm3 (4.2-5.4); White Blood Count 10.4 K/mm3 (4.4-11.0)
[2025-08-11 06:49] LABS: Anion Gap 9 (5-15); BUN 19 mg/dL (4-19); BUN/Creat Ratio 41.9 RATIO (10-20); Calcium,Total 9.4 mg/dL (7.6-11.0); Carbon Dioxide 37.8 mmol/L (21.0-32.0); Chloride 93 mmol/L (98-108); Estimated Creatinine Clearance 65.04 ml/min (50-250); Glucose 131 mg/dL (70-99); Potassium 3.1 mmol/L (3.3-5.1)
[2025-08-11] MEDS: 0.9% Normal Saline (250mL Bag) 250 ML 15 ML IV (09:25)
[2025-08-11] MEDS: APIXABAN 5 MG TABLET PO ×2 (09:32→21:19)
--- NOTE | 2025-08-11 11:20 | CASEMGMT ---
Discharge Planning Updates sent via [facility] to [facility]. Helena Marshall DC Planning Asst.
[2025-08-11] MEDS: Vancomycin HCl 750 MG in 0.9% Normal Saline (250mL Bag) 250 ML 250 MG IV (11:32)
--- NOTE | 2025-08-11 11:36 | SP.MBSS_ITS ---
Modified Barium Swallow Patient Information Study Date: 08/11/25 Study Time: 10:15 Direct Billable Minutes: 81 Total Minutes procedure & reportin Diagnosis: J96.01; J44.9; I50.9 Referring Physician: Janel Salazar Reason for Referral: Assess swallow function, assess risk for aspiration, and determine recommendations for least restrictive diet textures and compensatory strategies to improve swallowing safety. Medical History: The patient w/ extensive PMH below presented to [facility] ED 08/08/2025 from her [place] [facility] with new onset SOB. Pt's daughter noticed she became weak and fell a couple of days ago. She also had cough and congestion. In the ED patient was mildly hypoxemic, she was lethargic, and ABG showed pCO2 60 but appears to be compensated with a pH of 7.3 and bicarb of 32. She was placed on BiPAP in the ED, the downgraded to nasal cannula, received IV Lasix. Chest x-ray showed bilateral interstitial infiltrates, but prior CTs were reviewed and she has pulmonary scars and evidence of pulmonary hypertension suggesting chronic lung disease. Pt admitted for management of CHF, underlying COPD. ST consulted due to concerns for aspiration PNA, as well. Patient unable to participate in evaluation X2 days due to medical instability. Respiratory and mental status improved 08/10/2025 and pt was cleared for participation in BSE w/ ACADEMIC ADVISING DIRECTOR. ACADEMIC ADVISING DIRECTOR recommended puree textures / mildly (nectar) thick liquids w/ total feeding assistance; pt recommended for MBSS. Medical History: Hypothyroidism Chronic pain CPAP (continuous positive airway pressure) dependence Former smoker Atrial fibrillation Congestive heart failure (CHF) TIA (transient ischemic attack) Stroke/cerebrovascular accident Painful orthopaedic hardware Stiffness of right elbow joint Right elbow pain (HFpEF) heart failure with preserved ejection fraction Atrial flutter Longstanding persistent atrial fibrillation Vitamin D deficiency Dementia Type 2 diabetes mellitus without complication SHYLA treated with BiPAP Carotid artery stenosis GERD (gastroesophageal reflux disease) DDD (degenerative disc disease) Osteoporosis Anticoagulated Ostium secundum atrial septal defect History of stroke Obesity Hyperlipidemia Current Diet Ordered: Puree texture / Mildly thick Dentition: Edentulous Mental Status: WNL Respiratory Status: Oxygenating on Room Air Penetration-Aspiration Scale Penetration-Aspiration Scale: OBJECTIVE ASSESSMENT OF SWALLOW FUNCTION (QUANTITATIVE ? PER TRIAL): PENETRATION / ASPIRATION SCALE (SAMUEL): 1 = does not enter airway 2 = enters airway/above vocal folds/ejected 3 = enters airway/above vocal folds/not ejected 4 = enters airway/contacts vocal folds/ejected 5 = enters airway/contacts vocal folds/not ejected 6 = enters airway/below vocal folds/ejected 7 = enters airway/below vocal folds/not ejected despite effort 8 = enters airway/below vocal folds/no effort VIDEOFLOROSCOPIC SCALE SCORE (SAMUEL): Grade I = aspiration of material that has penetrated into the laryngeal vestibule, intact cough reflex Grade II = aspiration < 10 % of the bolus, intact cough reflex Grade III = aspiration of < 10 % of the bolus, reduced cough reflex or aspiration of > 10 % of the bolus, intact cough reflex Grade IV = aspiration of > 10 % of the bolus, reduced cough reflex Penetration-Aspiration Scale Score Thin Liquid via teaspoon: Result: 7= enters airways/below vocal folds/not ejected despite effort Comment: Unfortunately, first two trials were not recorded due to error w/ JOSE machine. [place] Thick Liquid via teaspoon: Result: 2= enter airway/above vocal folds/ejected [place] Thick Liquid via teaspoon Trial 2: Result: 1= does not enter airway Comment: Trace barium in the laryngeal vestibule, likely residuals from first trial of thin liquids by tsp, which was aspirated. Pudding via teaspoon: Result: 1= does not enter airway Comment: Cued cough to clear trace barium from the laryngeal vestibule, likely from previously aspirated trial. Esophageal screen - Complete clearance. [place] Thick Liquid via teaspoon Trial 3: Result: 1= does not enter airway [place] Thick Liquid via small single sip: cup: Result: 2= enter airway/above vocal folds/ejected 1/4 Cookie coated in Barium Pudding: Result: 1= does not enter airway (PAS score reflected pt swallowing barium pudding. Entire piece of cookie was cleared w/ a spoon from oral cavity d/t pt's inability to masticate it.) Thin Liquid via teaspoon Chin tuck: Result: 1= does not enter airway Thin Liquid via teaspoon Chin tuck Trial 2: Result: 3= enters airways/above vocal folds/not ejected Thin Liquid via teaspoon Effortful swallow: Result: 6= enters airway/below vocal folds/ejected [place] Thick Liquid via small single sip: cup Trial 2: Result: 2= enter airway/above vocal folds/ejected Oral Phase Labial Seal: Escape beyond interlabial space; no extension beyond twin border Tongue Control During Bolus Hold: Posterior escape of greater than half of bolus Bolus Preparation/Mastication: Minimal chewing/mashing with majority of bolus unchewed Bolus Transport/Lingual Motion: Repetitive/disorganized tongue motion Oral Residue: Minimal to no clearance (Cookie) Pharyngeal Phase Initiation of Pharyngeal Swallow: Bolus head in pyriforms Soft Palate Elevation: No bolus between soft palate and pharyngeal wall Laryngeal Elevation: Partial superior movement thyroid cart/partial apprx aryt- epig petiole Anterior Hyoid Excursion: Partial anterior movement Epiglottic Movement: Complete inversion Laryngeal Vestibule Closure at Height of Swallow: Incomplete; narrow column of air/contrast in laryngeal vestibule Pharyngeal Stripping Wave: Present - diminished Pharyngoesophageal Segment Opening: Parital distension and partial duration; parital obstruction of flow Tongue Base Retraction: Narrow column of contrast between tongue base & post. pharyngeal wall Pharyngeal Residue: Collection of residue within or on pharyngeal structures Esophageal Phase Esophageal Clearance: Esophageal retention (Retention in the UES) Diagnosis/Impression Diagnosis: Moderate oropharyngeal dysphagia R13.12 MBS Impressions: The oral phase is primarily marked by... -Decreased bolus control w/ premature posterior loss of >1/2 of liquids to the pyriform sinuses prior to swallow onset. -Lingual pumping for A-P transport of pudding coating of cookie trial. -Inability to masticate 1/4 cookie. ACADEMIC ADVISING DIRECTOR cleared cookie from oral cavity w/ a spoon. The pharyngeal phase is primarily marked by... -Decreased pharyngeal motility due to decreased TB retraction, pharyngeal stripping wave, and UES opening/duration of opening w/ mild-moderate pharyngeal residues. -Decreased airway closure during the swallow due to decreased anterior hyoid excursion and laryngeal elevation. Aspiration of thin liquids via tsp w/ weak reflexive cough. Aspiration just below the vocal folds of thin liquids via tsp w/ use of effortful swallow, which fully ejected during the swallow. Chin tuck somewhat decreased aspiration risk w/ trials of thin liquids by tsp. -Decreased UES opening/duration w/ small CP bar at the level of C5, which did appear to impact bolus clearance through the UES. Retention of barium in the UES w/ retrograde flow in the pyriform sinuses. Recommendations Diet: Puree Textures and Mildly Thick Liquids Comment: Medications crushed in applesauce Compensatory Strategies: Small Bites, Small Sips, No Straws, Slow Rate, Sitting upright and Remain sitting upright for 30 minutes after PO intake Supervision: Total Feed Recommend Repeat Modified Barium Swallow: Yes (Repeat MBSS after participation in oropharyngeal exercise program for 4-8 weeks to assess if pt is appropriate for advancement of liquids) Need for Skilled Speech Therapy Services: Yes Comment: -Train the patient and staff in use of strategies to decrease risk for aspiration. -Ongoing assessment of diet tolerance of recommended textures. Monitor respiratory status closely. Trial soft solids w/ dentures w/ ACADEMIC ADVISING DIRECTOR to consider advancement of solids. Trial thin liquids via tsp w/ chin tuck and intermittent cough and re-swallow w/ ACADEMIC ADVISING DIRECTOR. -Train the patient and staff in a thorough oral care routine. -Train the patient in oropharyngeal exercise program to improve bolus control, pharyngeal motility, airway closure, and UES opening. Recommended Referrals: GI Consult (OP GI consult due to decreased UES opening/duration of opening. CP bar, which did impact bolus clearance through the UES.) Education Completed: 1. Described result of evaluation., 2. Pt understands evaluation & agrees with goals and treatment plan. and 7. Pt requires further education on strategies & risks. Status Active ST Patient: Active Contact Information [facility] Speech Therapy:: Yvonne Cooper M.A. [facility]-ACADEMIC ADVISING DIRECTOR Speech-Language Pathologist [facility] [address] [place] [address] [email or web address] [phone]
[2025-08-11] MEDS: Potassium Chloride Oral Tablet 20 MEQ 40 MEQ PO (11:45)
--- NOTE | 2025-08-11 14:32 | PN_ITS ---
Subjective Subjective Patient seen and examined with her nurse by her bedside. Patient's she felt much better today. However she is on 6 L of oxygen. She was previously on BiPAP.. She denies any cough and no chest pain, palpitations or dizziness, she is coughing but is not able to expectorate. Review of systems otherwise negative. Objective Data Objective Data Vital Signs: Vital Signs Temp Pulse Resp BP Pulse Ox O2 Del Method O2 Flow Rate 97.6 F L 100 31 H 110/67 93 Nasal Cannula 6 08/11/25 03:48 08/11/25 13:57 08/11/25 13:57 08/11/25 13:57 08/11/25 13:57 08/11/25 13:57 08/11/25 13:57 FiO2 50 08/10/25 07:23 Oxygen Flow Rate (L/min) 6 Oxygen Delivery Method Nasal Cannula Weight: 171 lb 15.369 oz Body Mass Index (BMI) 27.7 Intake & Output: Intake and Output for Last 24 Hours 08/09/25 08/10/25 08/11/25 23:59 23:59 23:59 Intake Total 1185 / 1545 1575 / 1575 605 / 605 Output Total 1125 / 1125 2700 / 2700 1000 / 1000 Balance 60 / 420 -1125 / -1125 -395 / -395 Lab / Micro Data 08/11/25 06:00 08/11/25 06:00 Labs: Laboratory Results - last 24 hr 08/10/25 18:03: Vancomycin Trough 6.4 08/11/25 06:00: WBC 10.4, RBC 4.33, Hgb 12.7, Hct 39.5, MCV 91.2, MCH 29.3, MCHC 32.2, RDW Std Deviation 47.7 H, RDW Coeff of Emily 14.1, Plt Count 245, MPV 9.2, Immature Gran % (Auto) 0.500, Neut % (Auto) 83.2 H, Lymph % (Auto) 6.6 L, [place] % (Auto) 8.4, Eos % (Auto) 1.0, Baso % (Auto) 0.3, Absolute Neuts (auto) 8.7 H, A bsolute Lymphs (auto) 0.69 L, Nucleated RBC % 0, Sodium 141, Potassium 3.1 L, C hloride 93 L, Carbon Dioxide 37.8 H, Anion Gap 9, BUN 19, Creatinine 0.46 L, Estim Creat Clear Calc 65.04, Est GFR (MDRD) Non-Af 100, BUN/Creatinine Ratio 41.9 H, Glucose 131 H, Calcium 9.4 Physical Exam Const alert and oriented x3 Constitutional Narrative: Very frail and weak. Looks chronically ill. General Appearance: cooperative HEENT normocephalic, head/scalp atraumatic, moist oral mucous membranes and oropharynx normal Eyes EOMs intact bilaterally Neck supple and no JVD Lymph Lymphatic: no lymphedema noted Resp Resp Narrative: Moderately diminished breath sounds bibasilarly. No wheezes or crackles. Tachypneic. On 6 L of oxygen. Cardio regular rhythm, S1 normal heart sound, S2 normal heart sound and no murmurs Cardio Narrative: Mildly tachycardic. GI normal to inspection, nondistended, normoactive bowel sounds, soft to palpation and non-tender Extremity normal capillary refill, no clubbing, cyanosis or edema and no calf tenderness General Extremity: no tenderness to palpation of joints or extremities Skin General Skin Exam: no breakdown Neuro no focal motor deficits Motor Exam: general weakness Psych thought process normal and cooperative Appearance: appropriate Assessment & Plan Assessment/Plan (1) Acute hypoxemic respiratory failure: (2) Heart failure, diastolic, with acute decompensation: (3) COPD (chronic obstructive pulmonary disease): PLAN: Plan #Acute on chronic hypoxic and hypercapnic respiratory failure due to COPD exacerbation: Acute on chronic heart failure preserved ejection fraction and probable pneumonia * Now off BiPAP and on 6 L of oxygen by nasal cannula. She still coughing but unable to expectorate. On IV vancomycin and cefepime as well as IV Lasix. * 2D echo from 08/09/2023 showed EF of 50% and pulmonary artery systolic pressure of 20 mmHg. * WBC is down to 10.4. * Chest x-ray on admission showed cardiomegaly and CHF with bilateral pneumonic consolidation and right pleural effusion. * Will get CTA of the chest as patient is still requiring 6 L of oxygen several days after admission. * Titrate oxygen to attain saturation above 90%. Depending on CT chest findings we will consult pulmonology * Being diuresed with IV Lasix also. Will get 2D echo as the last echo was from 2022. Also on spironolactone #Dysphagia: Had modified barium swallow today which did show evidence of dysphagia. On modified diet with pur?e textures and mildly thick liquids. #History of A-fib: On Eliquis. Also on digoxin. Was tachycardic this morning but has improved #Depression: On citalopram #Hypothyroidism: On Synthroid DVT prophylaxis: on eliquis Charges/Coding Visit Charges Inpatient E&M: 25104 Subs Hosp L3
--- NOTE | 2025-08-11 15:10 | CT_ITS ---
PROCEDURE: CTA CHEST W/WO CONTRAST 08/11/2025 REASON FOR EXAM: SHORTNESS OF BREATH TECHNIQUE: Procedure Code: [id number] Modality: CT Procedure: CTA CHEST W/WO CONTRAST Multidetector CT angiography of the chest with intravenous contrast including multiplanar and post-processed maximum intensity projection (MIP) were generated and interpreted. CONTRAST: Isovue-300 VOLUME: 99 mL One or more dose reduction techniques were used (e.g., Automated exposure control, adjustment of the mA and/or kV according to patient size, use of iterative reconstruction technique). RADIATION DOSE SUMMARY: DLP: 471.44 mGycm COMPARISON: None available. FINDINGS: Opacification of the pulmonary arterial tree is adequate. Pulmonary artery and thoracic vessels: There are no filling defects in the central pulmonary arteries. The main pulmonary artery is dilated. The thoracic aorta are normal in caliber. Inferior vena cava contrast reflux suggestive of right heart dysfunction. Pulmonary parenchyma: Compressive atelectasis in the right lower lobe. Bilateral dependent atelectasis. Airways: The central airways are patent. Pleural space: Small right pleural effusion. Heart and pericardium: Cardiomegaly. No pericardial effusion. Coronary artery calcifications. Mediastinum and pedrito: A few prominent nonspecific mediastinal lymph nodes. Osseous structures: No aggressive osseous lesion. Degenerative changes of the thoracic spine. Upper visualized abdomen: Incompletely characterized hypoattenuating liver lesions which may reflect hepatic cysts. 1.5 x 1.5 cm left adrenal nodule. CT/CTA Chest W/WO Contrast IMPRESSION: 1. No evidence of central pulmonary embolism. 2. Small right pleural effusion and adjacent compressive atelectasis. 3. Dilated main pulmonary artery suggestive of arterial pulmonary hypertension. 4. Coronary artery calcifications. 5. Cardiomegaly. Reading Location: [id number]
--- NOTE | 2025-08-11 15:57 | CHAPLAIN ---
Type of Pastoral Visit ___ Initial Visit ___ Follow-up Visit ___ On-call Visit ___ General Patient Visit ___ Spiritual Assessment ___ Family Conference ___ Bereavement ___ Rapid Response ___ Code Blue ___ Other (describe below) Pastoral Care Referral From ___ Patient ___ Family ___ Nurse ___ Physician ___ Insurance Examiner ___ Senior Branch Manager ___ Other (describe below) Sacrament/Intervention ___ Active listening ___ Anointing ___ Sikh ___ Bereavement ___ Communion ___ Yaz exploration ___ ___ Life review ___ Prayer ___ Reconciliation ___ Sacrament of Sick ___ Supportive presence ___ Wedding ___ Other (describe below) Pastoral Comments two attempts to visit today but patient was busy with other staff at the time
[2025-08-11] MEDS: 0.9% Saline Lock 10 ML Syringe IV (17:20)
[2025-08-11] MEDS: MELATONIN 3 MG TABLET PO (21:20)
[2025-08-12] VITALS (11 sets, daily range): BP systolic 110–131; BP diastolic 65–83; PULSE 94–110; RESP 18–25; TEMP 36.5–36.7; O2SAT 94–95; BMI 26.6
[2025-08-12] MEDS: guaiFENesin 10 ML UDC (200MG/10ML) PO ×4 (01:04→21:43)
[2025-08-12 04:48] LABS: Hematocrit 40.2 % (37-47); Hemoglobin 13.0 g/dL (12.0-15.0); Immature Granulocytes Count 0.040 X10^3/uL (0.0-0.0); Mean Corp Hgb Conc 32.3 g/dL (32-36); Mean Corpuscular Volume 92.2 fL (81-99); Mean Platelet Vol. 9.6 fl (6.2-12.0); NRBC Flagged by Analyzer 0 % (0-5); Platelet Count 259 K/mm3 (150-450); RBC Distribution Width CV 14.2 % (11.6-14.6); RBC Distribution Width SD 47.8 fl (35.1-43.9); Red Blood Count 4.36 M/mm3 (4.2-5.4); White Blood Count 8.6 K/mm3 (4.4-11.0)
[2025-08-12 05:11] LABS: Anion Gap 11 (5-15); BUN 19 mg/dL (4-19); BUN/Creat Ratio 42.4 RATIO (10-20); Calcium,Total 9.8 mg/dL (7.6-11.0); Carbon Dioxide 39.0 mmol/L (21.0-32.0); Chloride 94 mmol/L (98-108); Estimated Creatinine Clearance 65.04 ml/min (50-250); Glucose 121 mg/dL (70-99); Potassium 3.2 mmol/L (3.3-5.1)
--- NOTE | 2025-08-12 05:54 | EX.PCM.CONCC ---
Assessment & Plan Assessment/Plan (1) Acute exacerbation of congestive heart failure: PLAN: Plan RECOMMENDATIONS: 1. Supplemental oxygen to maintain saturations at or above 90%. 2. Encourage incentive spirometer use and mobilize patient as tolerated. 3. Antimicrobials can be discontinued from my perspective. 4. As needed bronchodilator therapy. 5. Continue diuresis as tolerated by hemodynamics and renal function. 6. If interested, the patient can follow-up in the pulmonary medicine clinic after discharge to obtain baseline PFTs. 7. Will sign off at this time. Please call with any additional questions. IMPRESSIONS: 1. Shortness of breath and hypoxemia Most likely secondary to CHF exacerbation coupled with VQ mismatch from atelectasis. While the patient does have a prior tobacco abuse history, she has never been formally diagnosed with COPD. She does not utilize supplemental oxygen or inhalers at her baseline. My index of suspicion for underlying pneumonia is low. Therefore, antibiotics can be discontinued from my perspective. Okay to continue bronchodilator therapy as needed. Agree with diuresis as tolerated by hemodynamics and renal function. I would recommend that you encourage incentive spirometer use and mobilize patient as tolerated. If the patient is interested, she can follow-up in the pulmonary medicine clinic after discharge to obtain baseline PFTs. 2. History of dysphagia Continue modified diet per speech therapy recommendations. 3. History of atrial fibrillation/depression/hypothyroidism Complicates care, management, recovery and prognosis. Continue home medications as indicated. Physical therapy to work with the patient. This note was generated with [email or web address] dictation software. It may contain incorrect words, spelling, and punctuation that were not noted in checking the note before signing. HPI Consult Data Date of Consult: 08/12/25 HPI Narrative Reason for Consultation: Hypoxemia HPI Narrative: The patient is a 75-year-old female, with a history as outlined below, who presented to the emergency department on August 08 with shortness of breath. The patient has a known history of heart failure with preserved ejection fraction, atrial fibrillation and questionable COPD. The patient reported a prior tobacco abuse history, having quit completely 1 year ago. She has never completed pulmonary function studies to confirm an assertion of COPD. She does not utilize inhalers or supplemental oxygen at her baseline. On presentation to the emergency department, the patient was noted to be afebrile and hemodynamically stable. Laboratory evaluation revealed a normal white blood cell count. Arterial blood gas was notable for a pH of 7.31 with a pCO2 of 66 and pO2 of 60. Chemistry profile was notable for a sodium of 128 with a normal creatinine. Lactate was normal. Troponin was elevated at 28 with a BNP of 1984. Procalcitonin was normal. Urine analysis was unremarkable. Chest x-ray demonstrated pulmonary vascular congestion, cardiomegaly and bibasilar atelectasis. The patient was ultimately admitted to the hospital and placed on antimicrobials, bronchodilators and scheduled IV Lasix. Surface echocardiogram completed on August 11 demonstrated an ejection fraction of 45% with stage I diastolic dysfunction and a right ventricular systolic pressure of 46 mmHg. CTA chest showed no evidence for pulmonary embolism. Bilateral dependent atelectasis was noted along with a small right pleural effusion. The patient currently has a supplemental oxygen requirement of 3 L/min. [facility] Medical History Hypothyroidism Chronic pain CPAP (continuous positive airway pressure) dependence Former smoker Atrial fibrillation Congestive heart failure (CHF) TIA (transient ischemic attack) Stroke/cerebrovascular accident Painful orthopaedic hardware Stiffness of right elbow joint Right elbow pain (HFpEF) heart failure with preserved ejection fraction Atrial flutter Longstanding persistent atrial fibrillation Vitamin D deficiency Dementia Type 2 diabetes mellitus without complication SHYLA treated with BiPAP Carotid artery stenosis GERD (gastroesophageal reflux disease) DDD (degenerative disc disease) Osteoporosis Anticoagulated Ostium secundum atrial septal defect History of stroke Obesity Hyperlipidemia Home Medications ?Medication ?Instructions ?Recorded ?Last Taken ?Type multivitamin with folic acid 400 1 tab PO DAILY 05/16/14 Unknown History mcg tablet calcitriol 0.25 mcg capsule 0.25 mcg PO BID 10/10/17 Unknown History apixaban 5 mg tablet (Eliquis) 5 mg PO BID #60 tabs 08/31/21 Unknown Rx calcium carbonate 1,200 mg PO DAILY 05/11/22 Unknown History citalopram 10 mg tablet 5 mg PO DAILY 05/11/22 Unknown History potassium chloride 20 mEq 20 meq PO BID 09/01/23 Unknown History tablet,extended release digoxin 125 mcg (0.125 mg) tablet 125 mcg PO DAILY 30 days #30 tabs 09/05/23 Unknown Rx doxycycline hyclate 100 mg tablet 100 mg PO BID 08/08/25 Unknown History furosemide 80 mg tablet (Lasix) 80 mg PO BID 08/08/25 Unknown History levothyroxine 100 mcg capsule 100 mcg PO DAILY 08/08/25 Unknown History loratadine 10 mg tablet (Claritin) 10 mg PO DAILY 08/08/25 Unknown History melatonin 3 mg capsule 3 mg PO QHS 08/08/25 Unknown History midodrine 5 mg tablet 5 mg PO BID 08/08/25 Unknown History spironolactone 25 mg tablet 25 mg PO DAILY 08/08/25 Unknown History (Aldactone) Allergy/AdvReac Type Severity Reaction Status Date / Time cephalexin monohydrate (From Allergy Intermediate Hives Verified 08/08/25 00:46 Keflex) ciprofloxacin HCl (From Allergy Intermediate Hives Verified 08/08/25 00:46 Cipro) Environmental Allergies: Allergy Intermediate Hives Verified 08/08/25 00:46 Uncoded (metals) wool Allergy Intermediate Hives Verified 08/08/25 00:46 nickel Allergy Other Verified 08/08/25 00:46 atorvastatin calcium (From AdvReac Intermediate Pain in Verified 08/08/25 00:46 Lipitor) joints rosuvastatin calcium (From AdvReac Pain in Verified 08/08/25 00:46 Crestor) joints Family History Mother Myocardial infarction CAD (coronary artery disease) Father , age 72 Hypertension Surgical History History of cardiac radiofrequency ablation (RFA) (2005) History of gastric bypass History of atrial septal defect repair (1960) History of lateral meniscus repair of right knee History of section History of left heart catheterization (2013) History of thyroidectomy, total (2014) Social History Smoking Status: Former smoker how long ago did patient quit smokin alcohol intake: current alcohol intake frequency: holidays/special occasions only substance use type: does not use caffeine: Yes Type: carbonated beverages Number of servings: 1, coffee Number of servings: 3 and tea Number of servings: 2 ROS ROS Narrative 10 systems were reviewed with pertinent positives as noted in the HPI above. Physical Exam Const alert and no apparent distress General Appearance: cooperative HEENT normocephalic and head/scalp atraumatic Eyes PERRL, EOMs intact bilaterally and conjunctivae normal Neck supple General: trachea midline Chest inspection of chest normal Resp normal respiratory effort Resp Narrative: Poor patient dependent inspiratory effort. Auscultation: diminished lung sounds; Negative for rales, rhonchi or wheezes Cardio regular rate and regular rhythm GI normal to inspection, nondistended, normoactive bowel sounds Extremity no clubbing, cyanosis or edema Skin no rashes or lesions noted Neuro CN's II-XII intact bilaterally and no focal motor deficits Psych Mood & Affect: flat affect Lab / Micro Data 08/12/25 04:22 08/12/25 04:22 Labs: Laboratory Results - last 24 hr 08/11/25 06:00: WBC 10.4, RBC 4.33, Hgb 12.7, Hct 39.5, MCV 91.2, MCH 29.3, MCHC 32.2, RDW Std Deviation 47.7 H, RDW Coeff of Emily 14.1, Plt Count 245, MPV 9.2, Immature Gran % (Auto) 0.500, Neut % (Auto) 83.2 H, Lymph % (Auto) 6.6 L, [place] % (Auto) 8.4, Eos % (Auto) 1.0, Baso % (Auto) 0.3, Absolute Neuts (auto) 8.7 H, Absolute Lymphs (auto) 0.69 L, Nucleated RBC % 0, Sodium 141, Potassium 3.1 L, Chloride 93 L, Carbon Dioxide 37.8 H, Anion Gap 9, BUN 19, Creatinine 0.46 L, Estim Creat Clear Calc 65.04, Est GFR (MDRD) Non-Af 100, BUN/Creatinine Ratio 41.9 H, Glucose 131 H, Calcium 9.4 08/12/25 04:22: WBC 8.6, RBC 4.36, Hgb 13.0, Hct 40.2, MCV 92.2, MCH 29.8, MCHC 32.3, RDW Std Deviation 47.8 H, RDW Coeff of Emily 14.2, Plt Count 259, MPV 9.6, Immature Gran % (Auto) 0.500, Neut % (Auto) 78.6 H, Lymph % (Auto) 8.1 L, [place] % (Auto) 9.8, Eos % (Auto) 2.6, Baso % (Auto) 0.4, Absolute Neuts (auto) 6.8, Absolute Lymphs (auto) 0.69 L, Nucleated RBC % 0, Sodium 143, Potassium 3.2 L, Chloride 94 L, Carbon Dioxide 39.0 H, Anion Gap 11, BUN 19, Creatinine 0.44 L, Estim Creat Clear Calc 65.04, Est GFR (MDRD) Non-Af 102, BUN/Creatinine Ratio 42.4 H, Glucose 121 H, Calcium 9.8 Micro: Microbiology 08/11/25 14:00 Nasal Secretion MRSA (PCR) - Final Imaging Radiology Impression Echocardiogram 08/10/25 10:40 Interpretation Summary The left ventricular ejection fraction is 45 %. At least stage I diastolic dysfunction. There is mild biatrial dilatation. Moderate eccentric mitral valve regurgitation. Mild (1+) tricuspid valve insufficiency. Right ventricular systolic pressure estimated to be 46 mmHg. Ordering Physician: Karl Tavarez Performed By: Valeriano Packer [facility] Chest CTA 08/11/25 15:10 IMPRESSION: 1. No evidence of central pulmonary embolism. 2. Small right pleural effusion and adjacent compressive atelectasis. 3. Dilated main pulmonary artery suggestive of arterial pulmonary hypertension. 4. Coronary artery calcifications. 5. Cardiomegaly. Reading Location: [id number] Charges/Coding Visit Charges Inpatient E&M: 35051 Init Hosp L2
[2025-08-12] MEDS: 0.9% Saline Lock 10 ML Syringe IV ×4 (06:02→21:36)
[2025-08-12] MEDS: Cefepime HCl 2 GM in 0.9% Normal Saline (100mL MB+) 100 ML IV ×3 (06:03→21:36)
[2025-08-12] MEDS: Potassium Chloride Oral Tablet 20 MEQ 40 MEQ PO (09:06)
[2025-08-12] MEDS: APIXABAN 5 MG TABLET PO ×2 (09:07→21:38)
--- NOTE | 2025-08-12 09:28 | CASEMGMT ---
Discharge Planning [address] updated via [facility] that pt will likely return towards the end of the week. Helena Marshall DC Planning Asst.
--- NOTE | 2025-08-12 12:58 | PN_ITS ---
Subjective Subjective Patient seen and examined with her nurse by bedside. She had no active complaint and actually says she was feeling much better. She still remains mildly tachycardic but her tachypnea is improving. She is down to 4 L of oxygen by nasal cannula. Objective Data Objective Data Vital Signs: Vital Signs Temp Pulse Resp BP Pulse Ox O2 Del Method O2 Flow Rate 97.7 F L 106 H 20 H 129/68 H 95 High Flow 4 08/12/25 09:03 08/12/25 09:08 08/12/25 09:03 08/12/25 09:08 08/12/25 09:03 08/12/25 09:03 08/12/25 10:33 FiO2 50 08/10/25 07:23 Oxygen Flow Rate (L/min) 4 Oxygen Delivery Method High Flow Weight: 165 lb 2.02 oz Body Mass Index (BMI) 26.6 Intake & Output: Intake and Output for Last 24 Hours 08/10/25 08/11/25 08/12/25 23:59 23:59 23:59 Intake Total 1575 / 1575 1107.5 / 1107.5 100 / 100 Output Total 2700 / 2700 1999 / 1999 200 / 200 Balance -1125 / -1125 -892.5 / -892.5 -100 / -100 Lab / Micro Data 08/12/25 04:22 08/12/25 04:22 Labs: Laboratory Results - last 24 hr 08/12/25 04:22: WBC 8.6, RBC 4.36, Hgb 13.0, Hct 40.2, MCV 92.2, MCH 29.8, MCHC 32.3, RDW Std Deviation 47.8 H, RDW Coeff of Emily 14.2, Plt Count 259, MPV 9.6, Immature Gran % (Auto) 0.500, Neut % (Auto) 78.6 H, Lymph % (Auto) 8.1 L, [place] % (Auto) 9.8, Eos % (Auto) 2.6, Baso % (Auto) 0.4, Absolute Neuts (auto) 6.8, A bsolute Lymphs (auto) 0.69 L, Nucleated RBC % 0, Sodium 143, Potassium 3.2 L, C hloride 94 L, Carbon Dioxide 39.0 H, Anion Gap 11, BUN 19, Creatinine 0.44 L, Estim Creat Clear Calc 65.04, Est GFR (MDRD) Non-Af 102, BUN/Creatinine Ratio 42.4 H, Glucose 121 H, Calcium 9.8 Micro: Microbiology 08/11/25 14:00 Nasal Secretion MRSA (PCR) - Final Radiography Diagnostic Testing: Radiology Impression Echocardiogram 08/10/25 10:40 Interpretation Summary The left ventricular ejection fraction is 45 %. At least stage I diastolic dysfunction. There is mild biatrial dilatation. Moderate eccentric mitral valve regurgitation. Mild (1+) tricuspid valve insufficiency. Right ventricular systolic pressure estimated to be 46 mmHg. Ordering Physician: Karl Tavarez Performed By: Valeriano Packer [facility] Chest CTA 08/11/25 15:10 IMPRESSION: 1. No evidence of central pulmonary embolism. 2. Small right pleural effusion and adjacent compressive atelectasis. 3. Dilated main pulmonary artery suggestive of arterial pulmonary hypertension. 4. Coronary artery calcifications. 5. Cardiomegaly. Reading Location: [facility] Physical Exam Const alert and oriented x3 Constitutional Narrative: Very frail and weak. Looks chronically ill. HEENT normocephalic, head/scalp atraumatic, moist oral mucous membranes and oropharynx normal Eyes EOMs intact bilaterally Neck supple and no JVD Lymph Lymphatic: no lymphedema noted Resp Resp Narrative: Moderately diminished breath sounds bibasilarly.bilateral crackles, no wheezing. On 4L of oxygen by nasal canula Auscultation: crackles and rhonchi Cardio regular rhythm, S1 normal heart sound, S2 normal heart sound and no murmurs Cardio Narrative: Mildly tachycardic. Rate: regular rate Rhythm: abnormal rhythm irregularly irregular GI normal to inspection, nondistended, normoactive bowel sounds, soft to palpation and non-tender Extremity normal capillary refill, no clubbing, cyanosis or edema and no calf tenderness General Extremity: no tenderness to palpation of joints or extremities Skin General Skin Exam: no breakdown Neuro No oriented x3, moves all extremities and no focal motor deficits Motor Exam: general weakness Psych thought process normal and cooperative Appearance: appropriate Assessment & Plan Assessment/Plan (1) Acute hypoxemic respiratory failure: (2) Heart failure, diastolic, with acute decompensation: (3) COPD (chronic obstructive pulmonary disease): PLAN: Plan #Acute on chronic hypoxic and hypercapnic respiratory failure due to COPD exacerbation: Acute on chronic heart failure preserved ejection fraction and probable pneumonia * Now off BiPAP and on 4 L of oxygen by nasal cannula, down from 6L yestereay. She still coughing but unable to expectorate. On IV vancomycin and cefepime as well as IV Lasix. * 2D echo from 08/09/2023 showed EF of 50% and pulmonary artery systolic pressure of 20 mmHg. * WBC is down to 10.4. * Chest x-ray on admission showed cardiomegaly and CHF with bilateral pneumonic consolidation and right pleural effusion. * Will get CTA of the chest as patient is still requiring 6 L of oxygen several days after admission. * Titrate oxygen to attain saturation above 90%. Depending on CT chest findings we will consult pulmonology * Being diuresed with IV Lasix also. Will get 2D echo as the last echo was from 2022. Also on spironolactone #Dysphagia: Had modified barium swallow today which did show evidence of dysphagia. On modified diet with pur?e textures and mildly thick liquids. #History of A-fib: On Eliquis. Also on digoxin. tachycardia is improving #Depression: On citalopram #Hypothyroidism: On Synthroid DVT prophylaxis: on eliquis Charges/Coding Visit Charges Inpatient E&M: 50188 Subs Hosp L2
[2025-08-12] MEDS: MELATONIN 3 MG TABLET PO (21:38)
[2025-08-13] VITALS (19 sets, daily range): BP systolic 99–118; BP diastolic 63–88; PULSE 24–106; RESP 17–25; TEMP 36.3–36.7; O2SAT 90–100; BMI 26.8
[2025-08-13 05:47] LABS: Hematocrit 41.1 % (37-47); Hemoglobin 12.9 g/dL (12.0-15.0); Immature Granulocytes Count 0.030 X10^3/uL (0.0-0.0); Mean Corp Hgb Conc 31.4 g/dL (32-36); Mean Corpuscular Volume 91.3 fL (81-99); Mean Platelet Vol. 9.2 fl (6.2-12.0); NRBC Flagged by Analyzer 0 % (0-5); Platelet Count 279 K/mm3 (150-450); RBC Distribution Width CV 14.1 % (11.6-14.6); RBC Distribution Width SD 47.9 fl (35.1-43.9); Red Blood Count 4.50 M/mm3 (4.2-5.4); White Blood Count 7.8 K/mm3 (4.4-11.0)
[2025-08-13] MEDS: Cefepime HCl 2 GM in 0.9% Normal Saline (100mL MB+) 100 ML IV ×3 (05:57→21:45)
[2025-08-13 06:11] LABS: Anion Gap 11 (5-15); BUN 21 mg/dL (4-19); BUN/Creat Ratio 46.2 RATIO (10-20); Calcium,Total 10.2 mg/dL (7.6-11.0); Carbon Dioxide 38.6 mmol/L (21.0-32.0); Chloride 95 mmol/L (98-108); Estimated Creatinine Clearance 63.99 ml/min (50-250); Glucose 110 mg/dL (70-99); Potassium 3.4 mmol/L (3.3-5.1)
[2025-08-13] MEDS: guaiFENesin 10 ML UDC (200MG/10ML) PO ×3 (08:32→21:52)
[2025-08-13] MEDS: APIXABAN 5 MG TABLET PO ×2 (09:35→21:46)
[2025-08-13] MEDS: 0.9% Saline Lock 10 ML Syringe IV (09:46)
--- NOTE | 2025-08-13 10:54 | PN_ITS ---
Subjective Subjective Patient seen and examined. She was a bit more lethargic today and was confused about where she was. She is on 2 L of oxygen. She admits to coughing but is nonproductive. Review of systems otherwise negative. Objective Data Objective Data Vital Signs: Vital Signs Temp Pulse Resp BP Pulse Ox O2 Del Method O2 Flow Rate 97.6 F L 83 22 H 115/70 95 Nasal Cannula 2 08/13/25 09:26 08/13/25 09:35 08/13/25 09:26 08/13/25 09:26 08/13/25 10:00 08/13/25 09:26 08/13/25 10:00 FiO2 50 08/10/25 07:23 Oxygen Flow Rate (L/min) 2 Oxygen Delivery Method Nasal Cannula Weight: 166 lb 0.129 oz Body Mass Index (BMI) 26.8 Intake & Output: Intake and Output for Last 24 Hours 08/11/25 08/12/25 08/13/25 23:59 23:59 23:59 Intake Total 1107.5 / 1107.5 820 / 820 100 / 100 Output Total 1999 100 / 100 Balance -892.5 / -892.5 -1180 / -1180 0 / 0 Lab / Micro Data 08/13/25 05:04 08/13/25 05:04 Labs: Laboratory Results - last 24 hr 08/13/25 05:04: WBC 7.8, RBC 4.50, Hgb 12.9, Hct 41.1, MCV 91.3, MCH 28.7, MCHC 31.4 L, RDW Std Deviation 47.9 H, RDW Coeff of Emily 14.1, Plt Count 279, MPV 9.2, Immature Gran % (Auto) 0.400, Neut % (Auto) 69.6, Lymph % (Auto) 13.4 L, [place] % (Auto) 10.8 H, Eos % (Auto) 5.4 H, Baso % (Auto) 0.4, Absolute Neuts (auto) 5.4, Absolute Lymphs (auto) 1.05, Nucleated RBC % 0, Sodium 145, Potassium 3.4, C hloride 95 L, Carbon Dioxide 38.6 H, Anion Gap 11, BUN 21 H, Creatinine 0.45 L, Estim Creat Clear Calc 63.99, Est GFR (MDRD) Non-Af 101, BUN/Creatinine Ratio 46.2 H, Glucose 110 H, Calcium 10.2 Micro: Microbiology 08/11/25 14:00 Nasal Secretion MRSA (PCR) - Final Physical Exam Const alert and oriented x3 Constitutional Narrative: Very frail and weak. Looks chronically ill. General Appearance: cooperative, in distress Positive for respiratory, lethargic and on BiPAP HEENT normocephalic, head/scalp atraumatic, moist oral mucous membranes and oropharynx normal Eyes EOMs intact bilaterally Neck supple and no JVD Lymph Lymphatic: no lymphedema noted Resp Resp Narrative: Moderately diminished breath sounds bibasilarly.bilateral crackles, no wheezing. On 4L of oxygen by nasal canula Effort and Inspection: tachypneic, respiratory distress, pursed lip breathing and uses accessory muscles Auscultation: crackles and rhonchi; Negative for wheezes Cardio regular rhythm, S1 normal heart sound, S2 normal heart sound and no murmurs Cardio Narrative: Mildly tachycardic. Rate: regular rate Rhythm: abnormal rhythm irregularly irregular GI normal to inspection, nondistended, normoactive bowel sounds, soft to palpation and non-tender Extremity normal capillary refill, no clubbing, cyanosis or edema and no calf tenderness General Extremity: no tenderness to palpation of joints or extremities Skin General Skin Exam: no breakdown Neuro moves all extremities and no focal motor deficits Neuro Narrative: confused, disoriented today Motor Exam: general weakness Psych Psych Narrative: confused Assessment & Plan Assessment/Plan (1) Acute hypoxemic respiratory failure: (2) Heart failure, diastolic, with acute decompensation: (3) COPD (chronic obstructive pulmonary disease): PLAN: Plan #Acute on chronic hypoxic and hypercapnic respiratory failure due to COPD exacerbation: Acute on chronic heart failure preserved ejection fraction and probable pneumonia * has been off bipap. NOw on 2L of oxygen by nasal canula. Oxygen requirements keep improving. She still coughing but unable to expectorate. On IV vancomycin and cefepime as well as IV Lasix. * 2D echo from 08/09/2023 showed EF of 50% and pulmonary artery systolic pressure of 20 mmHg. * WBC is down to 10.4. * Chest x-ray on admission showed cardiomegaly and CHF with bilateral pneumonic consolidation and right pleural effusion. * Will get CTA of the chest as patient is still requiring 6 L of oxygen several days after admission. * Titrate oxygen to attain saturation above 90%. Depending on CT chest findings we will consult pulmonology * Being diuresed with IV Lasix also.. Also on spironolactone * 2D echo showed EF of 45% and stage I diastolic dysfunction and pulmonary right systolic pressure 46 mmHg. As well as moderate eccentric mitral valve regurgitation. No regional wall motion abnormalities. #Dysphagia: Had modified barium swallow which did show evidence of dysphagia. On modified diet with pur?e textures and mildly thick liquids. #History of A-fib: On Eliquis. Also on digoxin. tachycardia is improving #Depression: On citalopram #Hypothyroidism: On Synthroid DVT prophylaxis: on eliquis Disposition: Anticipate patient will be ready for discharge over the next 48 to 72 hours. Charges/Coding Visit Charges Inpatient E&M: 28728 Subs Hosp L2
[2025-08-13] MEDS: MELATONIN 3 MG TABLET PO (21:46)
[2025-08-14] VITALS (10 sets, daily range): BP systolic 97–112; BP diastolic 56–88; PULSE 83–97; RESP 18–20; TEMP 36.4–36.7; O2SAT 96–98; BMI 26.9
[2025-08-14] MEDS: Cefepime HCl 2 GM in 0.9% Normal Saline (100mL MB+) 100 ML IV (06:14)
[2025-08-14] MEDS: 0.9% Saline Lock 10 ML Syringe IV ×2 (06:16→11:05)
[2025-08-14 06:33] LABS: Hematocrit 40.8 % (37-47); Hemoglobin 13.0 g/dL (12.0-15.0); Immature Granulocytes Count 0.040 X10^3/uL (0.0-0.0); Mean Corp Hgb Conc 31.9 g/dL (32-36); Mean Corpuscular Volume 89.7 fL (81-99); Mean Platelet Vol. 8.9 fl (6.2-12.0); NRBC Flagged by Analyzer 0 % (0-5); Platelet Count 268 K/mm3 (150-450); RBC Distribution Width CV 14.4 % (11.6-14.6); RBC Distribution Width SD 47.0 fl (35.1-43.9); Red Blood Count 4.55 M/mm3 (4.2-5.4); White Blood Count 8.0 K/mm3 (4.4-11.0)
[2025-08-14 06:56] LABS: Anion Gap 11 (5-15); BUN 21 mg/dL (4-19); BUN/Creat Ratio 45.1 RATIO (10-20); Calcium,Total 9.7 mg/dL (7.6-11.0); Carbon Dioxide 37.4 mmol/L (21.0-32.0); Chloride 91 mmol/L (98-108); Estimated Creatinine Clearance 64.11 ml/min (50-250); Glucose 104 mg/dL (70-99); Potassium 3.2 mmol/L (3.3-5.1)
--- NOTE | 2025-08-14 09:50 | CASEMGMT ---
Discharge Planning Updates sent via [facility] to [facility] with note asking what pts baseline O2 is. Awaiting response. Helena Marshall DC Planning Asst.
[2025-08-14] MEDS: APIXABAN 5 MG TABLET PO (11:05)
[2025-08-14] MEDS: guaiFENesin 10 ML UDC (200MG/10ML) PO (11:16)
--- NOTE | 2025-08-14 12:03 | TREXTCAR_ITS ---
Diet Diet Order/Speech Therapy: INPATIENT Hospital Diet / Speech Therapy Order(s) 08/10/25 10:13 Diet: Regular - General Food consistency:: Soft & Bite Sized Liquid Consistency:: [place]/Mildly Thick Diet Comments: FORTIFIED PUDDING WITH MEALS Speech Therapy Comments: No straws, Distant supervision Routine Orders/Code Status Enema Type: Fleetz Enema Frequency: Daily PRN Suppository Type: Dulcolax 10mg Suppository Frequency: Daily PRN DC O2, CPAP, BIPAP needs Home O2 Discharge instructions: Yes Type of respiratory needs?: Oxygen Oxygen frequency: Continuous Continuous oxygen liters per minute: 2 Wound(s) right elbow: Wound Type: Abrasion Therapies Weight Bearing: Weight bearing as tolerated Physical Therapy: Eval and Treat Occupational Therapy: Eval and Treat Problem/Diagnosis (1) Acute hypoxemic respiratory failure: Status: Acute Code(s): J96.01 - Acute respiratory failure with hypoxia (2) Heart failure, diastolic, with acute decompensation: Status: Chronic Code(s): I50.33 - Acute on chronic diastolic (congestive) heart failure (3) COPD (chronic obstructive pulmonary disease): Status: Chronic Code(s): J44.9 - Chronic obstructive pulmonary disease, unspecified Plan #Acute on chronic hypoxic and hypercapnic respiratory failure due to COPD exacerbation: Acute on chronic heart failure preserved ejection fraction and probable pneumonia * has been off bipap. NOw on 2L of oxygen by nasal canula. Oxygen requirements keep improving. She still coughing but unable to expectorate. On IV vancomycin and cefepime as well as IV Lasix. * 2D echo from 08/09/2023 showed EF of 50% and pulmonary artery systolic pressure of 20 mmHg. * WBC is down to 10.4. * Chest x-ray on admission showed cardiomegaly and CHF with bilateral pneumonic consolidation and right pleural effusion. * Will get CTA of the chest as patient is still requiring 6 L of oxygen several days after admission. * Titrate oxygen to attain saturation above 90%. Depending on CT chest findings we will consult pulmonology * Being diuresed with IV Lasix also.. Also on spironolactone * 2D echo showed EF of 45% and stage I diastolic dysfunction and pulmonary right systolic pressure 46 mmHg. As well as moderate eccentric mitral valve regurgitation. No regional wall motion abnormalities. #Dysphagia: Had modified barium swallow which did show evidence of dysphagia. On modified diet with pur?e textures and mildly thick liquids. #History of A-fib: On Eliquis. Also on digoxin. tachycardia is improving #Depression: On citalopram #Hypothyroidism: On Synthroid DVT prophylaxis: on eliquis Disposition: Anticipate patient will be ready for discharge over the next 48 to 72 hours. Allergies/Procedures Done in Hospital Allergies cephalexin monohydrate (From Keflex) Allergy (Intermediate, Verified 08/08/25 00:46) Hives ciprofloxacin HCl (From Cipro) Allergy (Intermediate, Verified 08/08/25 00:46) Hives Environmental Allergies: Uncoded (metals) Allergy (Intermediate, Verified 08/08/25 00:46) Hives SOME METALS = caused cellulitus in breast and moise on hyster incision got inflammed immediatly. metal had to be removed. nickel makes red welts wool Allergy (Intermediate, Verified 08/08/25 00:46) Hives nickel Allergy (Verified 08/08/25 00:46) Other RED WELTS atorvastatin calcium (From Lipitor) Adverse Reaction (Intermediate, Verified 08/08/25 00:46) Pain in joints rosuvastatin calcium (From Crestor) Adverse Reaction (Verified 08/08/25 00:46) Pain in joints Procedures: 2-D Echocardiogram Type of Care/Length of Stay Estimated LOS: Convalescent Care Less Than 30 days Type of Care Needed: Skilled Rehab Potential: Fair Prognosis: Fair Additional Orders/Day of Discharge Day of Discharge: 08/14/25 Dietary and Speech Recommendations Dietitian Recommendations/Changes: Continue regular diet with consistency/texture as per MANAGER [employer]; restrict sodium as needed if PO improves at meals. Will add fortified pudding 3 times per day w/ meals for tolerance. Pt is a total feed; may need to consider TF support if PO remains suboptimal. Discharge Plan Admission Admit Date/Time: 08/08/25 05:07 Primary Reason for Your Visit: acue CHF exacerbation Attending Provider: Janel Salazar Primary Care Provider: Pat Santana Consulting Providers: Mirian Wright; Karl Tavarez Instructions Patient Instructions: Coping with Heart Failure Discharge Orders/Prescriptions Prescriptions: Continued calcitriol 0.25 mcg capsule 0.25 mcg PO BID citalopram 10 mg tablet 5 mg PO DAILY multivitamin with folic acid 1 TABLET tablet 1 tab PO DAILY Patient Comments: supplement calcium carbonate 600 mg calcium (1,500 mg) tablet 1,200 mg PO DAILY Patient Comments: IN AM, supplement potassium chloride 20 mEq tablet extended release 20 meq PO BID digoxin 125 mcg (0.125 mg) Tablet 125 mcg PO DAILY 30 Days Qty: 30 0RF loratadine [Claritin] 10 mg tablet 10 mg PO DAILY doxycycline hyclate 100 mg tablet 100 mg PO BID furosemide [Lasix] 80 mg tablet 80 mg PO BID levothyroxine 100 mcg capsule 100 mcg PO DAILY melatonin 3 mg capsule 3 mg PO QHS midodrine 5 mg tablet 5 mg PO BID Rx Instructions: do not give last dose of day after 6PM or within 4 hrs of bedtime hold is BP >130/90 spironolactone [Aldactone] 25 mg tablet 25 mg PO DAILY Eliquis 5 mg tablet 5 mg PO BID Qty: 60 11RF Referrals / Follow Up: Jhonny Ken DO [Med Staff - Active Staff, Pulmonary Medicine] - Within 2 Weeks Pat Santana MD [Primary Care Provider, Geriatrics] - Within 1 Week Disposition Disposition (needs filled in before D/C Order can be placed): [facility]
--- NOTE | 2025-08-14 12:06 | PHA.DC.MR.R ---
Pharmacy [place] Med Reconciliation Pharmacy Service has performed discharge medication reconciliation for this patient. The patient's discharge medication list was reviewed for discrepancies and discrepancies were resolved. Medications at Discharge Home Medications multivitamin with folic acid 400 mcg tablet 1 tab PO DAILY 05/16/14 calcitriol 0.25 mcg capsule 0.25 mcg PO BID 10/10/17 apixaban 5 mg tablet (Eliquis) 5 mg PO BID #60 tabs 08/31/21 calcium carbonate 1,200 mg PO DAILY 05/11/22 citalopram 10 mg tablet 5 mg PO DAILY 05/11/22 potassium chloride 20 mEq tablet,extended release 20 meq PO BID 09/01/23 digoxin 125 mcg (0.125 mg) tablet 125 mcg PO DAILY 30 days #30 tabs 09/05/23 doxycycline hyclate 100 mg tablet 100 mg PO BID 08/08/25 furosemide 80 mg tablet (Lasix) 80 mg PO BID 08/08/25 levothyroxine 100 mcg capsule 100 mcg PO DAILY 08/08/25 loratadine 10 mg tablet (Claritin) 10 mg PO DAILY 08/08/25 melatonin 3 mg capsule 3 mg PO QHS 08/08/25 midodrine 5 mg tablet 5 mg PO BID 08/08/25 spironolactone 25 mg tablet (Aldactone) 25 mg PO DAILY 08/08/25
--- NOTE | 2025-08-14 12:26 | CASEMGMT ---
Patient has order for discharge. RN JESSICA received discharge paperwork and signed medlist. RN JESSICA completed transport form. Patient to return to [facility] for skilled level of care. RN CM in to update patient that she will be discharge. Patient requestsed daughter Lalita be updated. Patient had no further question or concerns. HESHAM LOPEZ updated DC Fluid Power Mechanic to complete discharge to [facility], setup transport, and notify daughter.
--- NOTE | 2025-08-14 12:49 | CHAPLAIN ---
Type of Pastoral Visit _x__ Initial Visit ___ Follow-up Visit ___ On-call Visit ___ General Patient Visit ___ Spiritual Assessment ___ Family Conference ___ Bereavement ___ Rapid Response ___ Code Blue ___ Other (describe below) Pastoral Care Referral From _x__ Patient ___ Family ___ Nurse ___ Physician ___ Account Development Associate ___ Certified Endoscopy Technician ___ Other (describe below) Sacrament/Intervention _x__ Active listening ___ Anointing ___ Buddhism ___ Bereavement ___ Communion ___ Yaz exploration ___ ___ Life review _x__ Prayer ___ Reconciliation ___ Sacrament of Sick _x__ Supportive presence ___ Wedding ___ Other (describe below) Pastoral Comments patient is able to talk and give answers to questions; pt is welcoming of support and prayers; pt gives some family details and acknowledges good support from them although she could not remember where one of her children lives;
--- NOTE | 2025-08-14 14:14 | NURSING ---
Report called to nurse Jelly at [facility] for pt to return to previous living arrangments.
--- NOTE | 2025-08-14 14:19 | CASEMGMT ---
Discharge Planning Discharge orders, signed med list, and transport time sent via [facility] to [facility]. Physicians will transport pt by cot at 3:30p. Nursing, RN CM, pt, and her daughter (Lalita) updated. Helena Marshall DC Planning Asst.
--- NOTE | 2025-08-14 16:34 | DS.PCM_ITS ---
Providers Date of Admission: 08/08/25 Date of Discharge: 08/14/25 Primary Care Physician: Dr. Pat Santana MD Consultations 08/11/25 14:46 Consult: Software Installer / Pulmonary Medicine Routine Consulting Provider: Intensivists/Pulmonary Med Reason for Consult: acute hypoxic respiratory failure, pneuj[place] EMERGENT Consult: No MD Notified: Yes Date Notified: 08/11/25 Time Notified: 14:46 Method of Notification: Text Reason For Visit: DECOMPENSATED CHF Diagnosis Discharge Diagnosis (1) Acute hypoxemic respiratory failure: Status: Acute Code(s): J96.01 - Acute respiratory failure with hypoxia (2) Heart failure, diastolic, with acute decompensation: Status: Chronic Code(s): I50.33 - Acute on chronic diastolic (congestive) heart failure (3) COPD (chronic obstructive pulmonary disease): Status: Chronic Code(s): J44.9 - Chronic obstructive pulmonary disease, unspecified Plan #Acute on chronic hypoxic and hypercapnic respiratory failure due to COPD exacerbation: Acute on chronic heart failure preserved ejection fraction and probable pneumonia * has been off bipap. NOw on 2L of oxygen by nasal canula. Oxygen requirements keep improving. She still coughing but unable to expectorate. On IV vancomycin and cefepime as well as IV Lasix. * 2D echo from 08/09/2023 showed EF of 50% and pulmonary artery systolic pressure of 20 mmHg. * WBC is down to 10.4. * Chest x-ray on admission showed cardiomegaly and CHF with bilateral pneumonic consolidation and right pleural effusion. * Will get CTA of the chest as patient is still requiring 6 L of oxygen several days after admission. * Titrate oxygen to attain saturation above 90%. Depending on CT chest findings we will consult pulmonology * Being diuresed with IV Lasix also.. Also on spironolactone * 2D echo showed EF of 45% and stage I diastolic dysfunction and pulmonary right systolic pressure 46 mmHg. As well as moderate eccentric mitral valve regurgitation. No regional wall motion abnormalities. #Dysphagia: Had modified barium swallow which did show evidence of dysphagia. On modified diet with pur?e textures and mildly thick liquids. #History of A-fib: On Eliquis. Also on digoxin. tachycardia is improving #Depression: On citalopram #Hypothyroidism: On Synthroid DVT prophylaxis: on eliquis Disposition: Anticipate patient will be ready for discharge over the next 48 to 72 hours. Medications at Discharge Home Medications multivitamin with folic acid 400 mcg tablet 1 tab PO DAILY 05/16/14 calcitriol 0.25 mcg capsule 0.25 mcg PO BID 10/10/17 apixaban 5 mg tablet (Eliquis) 5 mg PO BID #60 tabs 08/31/21 calcium carbonate 1,200 mg PO DAILY 05/11/22 citalopram 10 mg tablet 5 mg PO DAILY 05/11/22 potassium chloride 20 mEq tablet,extended release 20 meq PO BID 09/01/23 digoxin 125 mcg (0.125 mg) tablet 125 mcg PO DAILY 30 days #30 tabs 09/05/23 doxycycline hyclate 100 mg tablet 100 mg PO BID 08/08/25 furosemide 80 mg tablet (Lasix) 80 mg PO BID 08/08/25 levothyroxine 100 mcg capsule 100 mcg PO DAILY 08/08/25 loratadine 10 mg tablet (Claritin) 10 mg PO DAILY 08/08/25 melatonin 3 mg capsule 3 mg PO QHS 08/08/25 midodrine 5 mg tablet 5 mg PO BID 08/08/25 spironolactone 25 mg tablet (Aldactone) 25 mg PO DAILY 08/08/25 Hospital Course Operations None Procedures 2-D Echocardiogram Summary of Care Provided Minutes Spent on Discharge: 45 Hospital Course: Patient is a 75 y/o F with a PMH with a PMH as outlined who was admitted via the ED on 08/14/2025 with a complaint of shortness of breath. [facility] after patient's daughter noted the patient became weak and fell in the penitentiary. She was subsequently noted to be short of breath and her shortness of breath worsened so she was brought into the ED. She was on Lasix in the penitentiary. On admission ABG done showed pCO2 of 60 with pH of 7.3. Chest x-ray showed bilateral interstitial infiltrates. She was admitted and managed for acute hypoxic respiratory failure due to CAP HF exacerbation. She was placed on BiPAP. Pulmonology was also consulted. She was also placed on antibiotics. CTA of the chest done was negative for any evidence of PE. 2D echo done showed EF of 45% and stage I diastolic dysfunction. She was weaned off of antibiotics as her symptoms were thought to be likely due to CHF. Her shortness of breath improved and she was weaned down to her baseline 2 L of oxygen. She was discharged back to her correction facility on 08/14/2025 on her p.o. Lasix 80 mg twice daily with potassium supplementation. She is to follow-up with her primary care doctor within 1 to 2 weeks. Patient seen and examined prior to discharge. She felt much better and was on her 2 L of oxygen. She had no active complaints. Review of systems otherwise negative. Labs and vitals reviewed. Home medication reviewed and reconciled Physical Exam Const alert and oriented x3 Constitutional Narrative: flat affect General Appearance: cooperative HEENT normocephalic, head/scalp atraumatic, hearing grossly normal bilaterally, moist oral mucous membranes and oropharynx normal Mouth: oral and palatal mucosa normal Eyes EOMs intact bilaterally and conjunctivae normal Neck supple and no JVD Lymph Lymphatic: no lymphedema noted Resp Resp Narrative: Moderately diminished breath sounds bibasilarly. No wheezing or crackles. On 2L of oxygen by nasal canula Cardio regular rate, regular rhythm, S1 normal heart sound, S2 normal heart sound and no murmurs Rate: regular rate GI normal to inspection, nondistended, normoactive bowel sounds, soft to palpation and non-tender Extremity normal capillary refill, no clubbing, cyanosis or edema and no calf tenderness General Extremity: no tenderness to palpation of joints or extremities Skin no rashes or lesions noted General Skin Exam: no breakdown Neuro oriented x3, moves all extremities and no focal motor deficits Motor Exam: general weakness Psych thought process normal and cooperative Appearance: appropriate Weight / BMI Weight Weight: 166 lb 10.711 oz Body Mass Index (BMI) 26.9 ABG / Lab / Microbiology Data 08/14/25 06:05 08/14/25 06:05 Laboratory: Laboratory Results - last 24 hr 08/14/25 06:05: WBC 8.0, RBC 4.55, Hgb 13.0, Hct 40.8, MCV 89.7, MCH 28.6, MCHC 31.9 L, RDW Std Deviation 47.0 H, RDW Coeff of Emily 14.4, Plt Count 268, MPV 8.9, Immature Gran % (Auto) 0.500, Neut % (Auto) 65.7, Lymph % (Auto) 16.4 L, Snyder % (Auto) 9.7, Eos % (Auto) 7.2 H, Baso % (Auto) 0.5, Absolute Neuts (auto) 5.3, Absolute Lymphs (auto) 1.32, Nucleated RBC % 0, Sodium 140, Potassium 3.2 L, C hloride 91 L, Carbon Dioxide 37.4 H, Anion Gap 11, BUN 21 H, Creatinine 0.47 L, Estim Creat Clear Calc 64.11, Est GFR (MDRD) Non-Af 100, BUN/Creatinine Ratio 45.1 H, Glucose 104 H, Calcium 9.7 Microbiology: Microbiology 08/11/25 14:00 Nasal Secretion MRSA (PCR) - Final D/C Instructions Discharge Activity: Return to Normal Activity Weight Bearing Status: Weight bearing as tolerated Call your doctor if you observe: Fever of 101 or Higher, Shortness of breath, Dizziness, Swelling in the ankles and Chest pain DC O2, CPAP, BIPAP Needs Home O2 Discharge instructions: Yes Type of respiratory needs?: Oxygen Oxygen frequency: Continuous Continuous oxygen liters per minute: 2 DC home with Oxygen: Yes Home O2 MD Review: I have reviewed the oxygen testing, and the patient qualifies for home oxygen equipment and portability. The patient is mobile in the home and the community. Meaningful Use Info Meaningful Use Meaningful Use Diagnoses (Choose all that apply): CHF CHF RONALDO/ARB ordered at discharge?: No Reason RONALDO/ARB not ordered?: Not indicated Documented LVEF (%): 45 Discharge Plan Admission Admit Date/Time: 08/08/25 05:07 Primary Reason for Your Visit: acue CHF exacerbation Attending Provider: Janel Salazar Primary Care Provider: Pat Santana Consulting Providers: Mirian Wright; Karl Tavarez Instructions Patient Instructions: Coping with Heart Failure Discharge Orders/Prescriptions Prescriptions: Continued calcitriol 0.25 mcg capsule 0.25 mcg PO BID citalopram 10 mg tablet 5 mg PO DAILY multivitamin with folic acid 1 TABLET tablet 1 tab PO DAILY Patient Comments: supplement calcium carbonate 600 mg calcium (1,500 mg) tablet 1,200 mg PO DAILY Patient Comments: IN AM, supplement potassium chloride 20 mEq tablet extended release 20 meq PO BID digoxin 125 mcg (0.125 mg) Tablet 125 mcg PO DAILY 30 Days Qty: 30 0RF loratadine [Claritin] 10 mg tablet 10 mg PO DAILY doxycycline hyclate 100 mg tablet 100 mg PO BID furosemide [Lasix] 80 mg tablet 80 mg PO BID levothyroxine 100 mcg capsule 100 mcg PO DAILY melatonin 3 mg capsule 3 mg PO QHS midodrine 5 mg tablet 5 mg PO BID Rx Instructions: do not give last dose of day after 6PM or within 4 hrs of bedtime hold is BP >130/90 spironolactone [Aldactone] 25 mg tablet 25 mg PO DAILY Eliquis 5 mg tablet 5 mg PO BID Qty: 60 11RF Referrals / Follow Up: Jhonny Ken DO [Med Staff - Active Staff, Pulmonary Medicine] - Within 2 Weeks Pat Santana MD [Primary Care Provider, Geriatrics] - Within 1 Week Disposition Disposition (needs filled in before D/C Order can be placed): [facility] Charges/Coding Visit Charges Inpatient E&M: 39032 Disch Hosp >30min
== END 2025-08-14 15:08 | disposition skilled nursing facility (03) | DRG 291 ==
LOC: ED 04:48 → PCU 05:22
PROVIDERS: Family Medicine; Admitting Provider Internal Medicine; Emergency Provider Emergency Medicine; PCP Internal Medicine; Visit Provider Student in an Organized Health Care Education/Training Program
DX: I50.33 Acute on chronic diastolic (congestive) heart failure (principal); J96.21 Acute and chronic respiratory failure with hypoxia; J96.22 Acute and chronic respiratory failure with hypercapnia; J18.9 Pneumonia, unspecified organism; J44.0 Chronic obstructive pulmonary disease with (acute) lower respiratory infection; J44.1 Chronic obstructive pulmonary disease with (acute) exacerbation; I48.11 Longstanding persistent atrial fibrillation; I27.21 Secondary pulmonary arterial hypertension; R13.12 Dysphagia, oropharyngeal phase; Z66 Do not resuscitate; E11.65 Type 2 diabetes mellitus with hyperglycemia; F03.90 Unspecified dementia, unspecified severity, without behavioral disturbance, psychotic disturbance, mood disturbance, and anxiety; F32.A Depression, unspecified; I34.0 Nonrheumatic mitral (valve) insufficiency; E78.5 Hyperlipidemia, unspecified; Z79.01 Long term (current) use of anticoagulants; Z79.890 Hormone replacement therapy; Z79.899 Other long term (current) drug therapy; Z86.73 Personal history of transient ischemic attack (TIA), and cerebral infarction without residual deficits; Z87.891 Personal history of nicotine dependence
CPT/HCPCS: 36415; 36600; 71045; 71275; 74230; 80048; 80202; 81001; 82306; 82803; 82962; 83605; 83735; 83880; 84145; 84484; 85025; 87631; 87641; 92526; 92610; 92611; 93005; 93306; 94002; 94003; 94640; 94660; 94762; 97116; 97162; 97166; 97530; 97535; 99285; Q9957; Q9967; A4216; C8929; J1938